=== PATIENT | male | born 1940 | race Caucasian/White ===

== ENCOUNTER → 2018-03-24 14:23 | Outpatient (CLI) | payer MEDICARE, BC, SELFPAY ==
[2018-03-24 15:18] LABS: Anion Gap 5 (5-15); BUN 16 mg/dL (7-18); BUN/Creat Ratio 12.7 RATIO (10-20); Calcium,Total 8.8 mg/dL (8.5-10.1); Chloride 106 mmol/L (98-107); Creatinine, Serum 1.26 mg/dL (0.70-1.30); EST Glomerular Filtration Rate 59 mL/min (>60); Est Glom Filt Rate - Afr Amer 71 mL/min (>60); Glucose 99 mg/dL (74-106); PSA,Total- Diagnostic 0.66 ng/mL (0.0-4.0); Potassium 4.4 mmol/L (3.5-5.1); Sodium Level 140 mmol/L (136-145)
== END ==
PROVIDERS: Family Provider Internal Medicine; PCP Internal Medicine; Visit Provider Urology
DX: N40.0 Benign prostatic hyperplasia without lower urinary tract symptoms (principal)
CPT/HCPCS: 36415; 80048; 84153

== ENCOUNTER → 2018-07-19 07:13 | Outpatient (CLI) | payer MEDICARE, BC, SELFPAY ==
--- NOTE | 2018-07-19 10:39 | NEURO ---
NCS and/or EMG Patient Report Ordering Doctor: Jenifer Starr DATE OF SERVICE: 07/19/18 This is a left upper extremity EMG and nerve conduction study performed on this 77-year-old male with left arm and shoulder pain for 15 years. He says there is pain with passive range of motion of his left shoulder and he has had injections in his left shoulder which has improved the pain. He also has a tremor in both hands worse on the left, he is left-handed. Left upper extremity sensory and motor nerve conduction studies performed demonstrating mild prolongation of the median motor and sensory distal latencies with mild reduction of the median motor amplitude but preservation of conduction velocities. The ulnar motor and sensory and radial sensory responses are normal. Median and ulnar F-wave latencies are normal. Left upper extremity needle electromyography is performed. Muscles evaluated included the first dorsal osseous, abductor pollicis brevis, brachioradialis, biceps, triceps and deltoid muscles. All muscles demonstrated normal insertional activity with absence of pathologic spontaneous activity. Motor unit potential recruitment pattern and amplitude was normal in all muscles tested. Impression: Abnormal electrophysiologic study of the left upper extremity consistent with mild carpal tunnel syndrome at the left wrist. The patient's tremor likely represents benign essential tremor.
== END ==
PROVIDERS: Family Provider Internal Medicine; PCP Internal Medicine; Visit Provider Nurse Practitioner Acute Care
DX: R20.0 Anesthesia of skin (principal); R20.2 Paresthesia of skin
CPT/HCPCS: 95886; 95910

== ENCOUNTER 2018-12-14 13:50 | Outpatient (RCR) | payer MEDICARE, BC, SELFPAY | END 2018-12-14 19:00 | disposition home or self-care (01) | LOC: PT 13:50 | PROVIDERS: Family Provider Internal Medicine; PCP Internal Medicine; Referring Provider Physician Assistant Surgical; Visit Provider Physician Assistant Surgical | DX: M51.36 Other intervertebral disc degeneration, lumbar region (principal); M54.16 Radiculopathy, lumbar region ==

== ENCOUNTER 2019-06-01 15:05 | Inpatient (IN) | payer MEDICARE, BC, SELFPAY ==
[2019-06-01] VITALS (9 sets, daily range): BP systolic 116–140; BP diastolic 69–90; PULSE 90–134; RESP 18–19; TEMP 36.9–37.3; O2SAT 95–97; BMI 34.0; BMI 34.1
--- NOTE | 2019-06-01 15:15 | EKG12_ITS ---
Test Reason : AM EKG Blood Pressure : / mmHG Vent. Rate : 143 BPM Atrial Rate : 133 BPM P-R Int : 000 ms QRS Dur : 076 ms QT Int : 350 ms P-R-T Axes : 000 229 042 degrees QTc Int : 540 ms Poor data quality, interpretation may be adversely affected Sinus tachycardia with 1st degree block Right superior axis deviation Possible Pulmonary disease pattern Possible Right ventricular hypertrophy Inferior infarct , age undetermined Abnormal ECG When compared with ECG of 02-JUN-2019 07:00, MANUAL COMPARISON REQUIRED, DATA IS UNCONFIRMED Confirmed by ROBB GUERRA, QUINTIN ([id number]), writer editor EDWARDO HSIEH ([id number] on 06/08/2019 1:23:52 PM Referred By: Marcelle Thomson Confirmed By:QUINTIN ZAMUDIO MD
--- NOTE | 2019-06-01 15:15 | CT_ITS ---
STUDY: CT BRAIN WITHOUT CONTRAST REASON FOR EXAM: Male, 78 years old. Trauma RADIATION DOSAGE (If Supplied By Facility): CTDIvol = ( 44.99 ) mGy, DLP = ( 812.98 ) mGycm TECHNIQUE: Transaxial CT imaging of the brain was performed without administration of intravenous contrast material. Individualized dose optimization techniques were used for this CT. COMPARISON: No relevant priors. FINDINGS: Normal soft tissue structures. Normal calvarium. Moderate atrophy and periventricular white matter ischemic changes without mass effect or acute bleed.. Normal basal ganglia and thalami. Normal brainstem. Normal cerebellum. There is no intracranial hemorrhage. There are no findings of an acute ischemic infarction. Moderate mucosal thickening within left maxillary bilateral ethmoid and left sphenoid sinuses. CT/Brain/Head without Contrast IMPRESSION: Moderate atrophy and periventricular white matter ischemic changes. No evidence for acute intracranial bleed Electronically Signed: Manuel Lara MD at 16:24 EDT , Service support ,
--- NOTE | 2019-06-01 15:17 | ED.DCSUM_ITS ---
- ER Visit Summary Date of Service: 06/01/19 Chief Complaint: Fall History of Present Illness: The patient is a 78 M who states that 1 or 2 days ago he was in the shower sitting on a shower chair when he fell backwards and struck the back of his head. He states it is a small bathtub and he was unable to get up. An acquaintance checked on him today and found him in the shower. He states that he has been able to drink some fluids. He has not had anything to eat. He does not believe he lost consciousness. He denies any pain other than some soreness on the back of his head. He states that he has made some urine though not much. He denies being on any blood thinners. He was able to assist EMS and getting out of the tub. He also states that just prior to falling in the shower he had 2 falls but he cannot tell me why they fell. He states he has an essential tremor and that is not new. He quit drinking in the 60s. Physical Examination: Afebrile vital signs are stable Gen: Well-nourished well-developed Head: Normocephalic there is a small contusion to the occiput Eyes: Perrl EOMI ENT: TMs clear no rhinorrhea dry mucous membranes Neck: Supple no lymphadenopathy no JVD nontender CVS: Regular rate rhythm no murmurs normal S1-S2 Respiratory: No distress clear to auscultation bilaterally chest nontender Abdomen: Soft nontender nondistended normal bowel sounds no masses Back: Nontender there are pressure changes on the back and buttocks particularly on the right. There is a small abrasion to the upper left back. Extremity: Nontender no edema Skin: Normal color pressure changes located on the posterior legs right arm and back as well as a small area the left inframammary skin. Neuro: alert orientated ?3 CN II-XII intact normal strength sensation patient has a tremor Psych: Normal affect normal mood Test Results: EKG showed a sinus rhythm at a rate of 88. White count is normal. Hemoglobin 17.2. Glucose 107. Normal creatinine. Total bilirubin 2.4 direct bilirubin 0.96. Troponin 0 0.487 CPK at 4033. Lactic acid 1.3. Chest and pelvis x-rays were negative. CT brain was negative. Urine showed 5-10 white blood cells 3+ bacteria positive nitrates and leukocyte esterase. Emergency Department Course and Treatment: The patient received IV fluids and later Rocephin. At one point the patient got up on the side of the bed his heart rate increased to 160 he got back laying down. Eventually his heart rate returned to a sinus tachycardia around 110. Unable to get an EKG twelve-lead done during this time. Looking on the monitor I could not say definitively if it was a sinus tach or for his A. fib. It could just simply be orthostatics from being dehydrated. Our plan is admission and continued hydration. Impression: 1. Acute rhabdomyolysis 2. Elevated troponin 3. Urinary tract infection This note was generated with [employer] dictation software. It may contain incorrect words, spelling, and punctuation that were not noted in review of the chart prior to signing ED Disposition - Plan for ED Patient: Referrals: Lena Jauregui MD [Primary Care Provider] -
--- NOTE | 2019-06-01 15:29 | EKG12_ITS ---
Test Reason : FALL Blood Pressure : / mmHG Vent. Rate : 088 BPM Atrial Rate : 088 BPM P-R Int : 150 ms QRS Dur : 072 ms QT Int : 390 ms P-R-T Axes : 017 241 073 degrees QTc Int : 471 ms Normal sinus rhythm Right superior axis deviation Inferior infarct , age undetermined , cannot be excluded Abnormal ECG Confirmed by ROBB GUERRA, QUINTIN ([id number]), editor in chief newspaper EDWARDO HSIEH ([id number] on 06/06/2019 3:38:04 PM Referred By: Marcelle Thomson Confirmed By:QUINTIN ZAMUDIO MD
[2019-06-01] MEDS: 0.9% Normal Saline 1,000 ML 1000 ML IV (15:31)
--- NOTE | 2019-06-01 15:50 | RAD_ITS ---
STUDY: X-RAY CHEST REASON FOR EXAM: Male, 78 years old. Trauma TECHNIQUE: AP portable COMPARISON: November 18, 2017. FINDINGS: Mild nonspecific elevation of right hemidiaphragm. Lungs are clear.. There is no demonstrated pleural abnormality. Normal size heart. Normal mediastinum and priya. Normal visualized pulmonary arteries. Normal visualized aortic arch and descending thoracic aorta. Dorsal spine demonstrates degenerative change. Normal visualized ribs, clavicles, and shoulders. There is no demonstrated abnormality of the visualized soft tissue structures of the upper abdomen. No significant change since prior exam RAD/Chest 1 View IMPRESSION: No acute cardiopulmonary pathology. Electronically Signed: Manuel Lara MD at 16:11 EDT , Service support ,
--- NOTE | 2019-06-01 15:50 | RAD_ITS ---
STUDY: X-RAY - PELVIS REASON FOR EXAM: Male, 78 years old. Trauma TECHNIQUE: One view of the pelvis was obtained. COMPARISON: None. FINDINGS: There is a non-specific bowel gas pattern. Normal visualized soft tissue structures. Normal bilateral iliac wings, sacroiliac joints and visualized sacrum. Normal visualized bilateral superior and inferior pubic rami. Normal pubic symphysis. Normal ischial tuberosities. Normal visualized right femoral head. Normal right acetabulum. Normal right hip joint. Normal visualized left femoral head. Normal left acetabulum. Normal left hip joint. RAD/Pelvis 1 or 2 Views IMPRESSION: Normal x-ray examination of the pelvis. Electronically Signed: Manuel Lara MD at 16:12 EDT , Service support ,
[2019-06-01 15:52] LABS: Mucous, Urine 0 SEEN /hpf (<or=2+); Red Blood Cells-Urine 0 SEEN /hpf (0-5); Squamous Epithelial Cells - UA 0 SEEN /hpf (0-5)
[2019-06-01 15:59] LABS: Glucose, Dipstick Normal (Normal); Ketone-Dipstick 50 mg/dl (Negative); Leukocyte Esterase-Dipstick 100 /ul (Negative); Nitrite-Dipstick Positive (Negative); Occult Blood-Urine 150 /ul (Negative); Protein-Dipstick 30 mg/dl (Negative); Urine Urobilinogen 4 mg/dl (Normal)
[2019-06-01 16:00] LABS: Absolute Lymphocyte Count 1.03 X10^3/ul (0.83-4.51); Absolute Neutrophil Count 8.3 X10^3/uL (2.0-7.7); Basophil# 0.03 X10^3/uL; Basophil% 0.3 % (0-1); Eosinophil# 0.19 X10^3/uL; Eosinophils% 1.8 % (0-5); Hematocrit 50.6 % (40-54); Hemoglobin 17.2 g/dl (13.0-16.5); Lymphocyte # 1.03 X10^3/ul (4.0); Lymphocyte % 9.8 % (19-41); Mean Corpuscular Volume 85.2 fL (80-94); Monocyte% 8.6 % (0-10); Neutrophil # 8.28 X10^3/uL (2.7-7.7); Neutrophil % 79.1 % (47-70); Platelet Count 123 K/mm3 (150-450); RBC Distribution Width CV 15.2 % (11.6-14.6); RBC Distribution Width SD 47.6 fl (35.1-43.9); Red Blood Count 5.94 M/mm3 (4.6-6.2); White Blood Count 10.5 K/mm3 (4.4-11.0)
[2019-06-01 16:06] LABS: International Normalized Ratio 1.1; POSITIVE COUNT NO; POSITIVE DIFFERENTIAL NO; POSITIVE MORPHOLOGY NO; Prothrombin Time (Protime)PT. 13.9 SECONDS (11.7-14.9)
[2019-06-01 16:07] LABS: Partial Thromboplast Time 23.6 Seconds (24.1-36.2)
[2019-06-01 16:11] LABS: Color, Urine Dk Yello (Yellow); Urine Bilirubin Dipstick 1 mg/dL (Negative); Urine Clarity Clear (Clear)
[2019-06-01 16:22] LABS: Bacteria 3+ /hpf (None Seen); White Blood Cells 5-10 SEEN /hpf (0-5)
[2019-06-01 16:28] LABS: AST(SGOT) 114 U/L (15-37); Alanine Aminotransfer ALT/SGPT 47 U/L (16-61); Albumin, Serum 3.9 g/dL (3.2-5.0); Alkaline Phosphatase 124 U/L (45-117); Anion Gap 6 (5-15); BUN 15 mg/dL (7-18); BUN/Creat Ratio 15.3 RATIO (10-20); Bilirubin, Direct 0.96 mg/dL (0.00-0.30); Calcium,Total 8.8 mg/dL (8.5-10.1); Chloride 103 mmol/L (98-107); Creatinine, Serum 0.98 mg/dL (0.70-1.30); EST Glomerular Filtration Rate 79 mL/min (>60); Est Glom Filt Rate - Afr Amer 95 mL/min (>60); Estimated Creatinine Clearance 66.16 ml/min; Globulin 4.1 g/dL (2.2-4.2); Glucose 107 mg/dL (74-106); Lipase 78 U/L (73-393); Potassium 3.9 mmol/L (3.5-5.1); Sodium Level 134 mmol/L (136-145)
--- NOTE | 2019-06-01 16:52 | NURSING ---
LACTIC NEEDS REDRAWN
[2019-06-01 16:55] LABS: CPK Total, Creatine Kinase 4033 U/L (39-308)
[2019-06-01] MEDS: 0.9% Normal Saline 1,000 ML 150 ML IV ×2 (17:01→22:27)
[2019-06-01 18:01] LABS: Lactic Acid 1.3 mmol/L (0.4-2.0)
--- NOTE | 2019-06-01 18:14 | NURSING ---
DR EL LEWIS
--- NOTE | 2019-06-01 18:15 | HP.PCM_ITS ---
History of Present Illness Date of Admission: 06/01/19 Chief Complaint: fall, The patient is a 78 year old M with a past medical history as listed. He was admitted through the ED on 06/01/2019 with a complaint of mechanical fall. Patient states he has had problems with his equilibrium and has had numerous falls recently. He was initially sitting on a shower chair for 1 day ago when he fell backwards. He states he hit the back of his head and was unable to get out of the bath. He did not lose any consciousness. He was found by an acquaintance who checked on him today and found him in the shower. He denies any fever chills no palpitations or dizziness and states that the only what they had been able to drink was the bottle of water. EMS was called and he was brought into the ED where vitals were stable but EKG showed sinus rhythm with a heart rate of 88. Labs were significant for hemoglobin of 17.2. Creatinine was within normal limits but total bilirubin was elevated at 2.4 with direct bilirubin of 0.96. He also had AST of 114 and ALT of 47 as well as elevated ALP of 124 and his total CPK was 4033. Initial troponin was 0.487. He has been admitted to be monitored for mechanical fall and rhabdomyolysis as well as elevated troponins. [] Past Medical History Past Medical History (Chronic Problems): Chronic Problems Benign essential hypertension (Chronic) BPH (benign prostatic hyperplasia) (Chronic) Crohns disease (Chronic) Osteoarthritis (Chronic) History of total knee arthroplasty (Chronic) Depression (Chronic) Dementia (Chronic) Allergies atorvastatin Adverse Reaction (Verified 10/28/16 19:54) Unknown Penicillins Adverse Reaction (Verified 10/28/16 19:54) Unknown Home Medications: Ambulatory Orders Medication Instructions Recorded Beta-Carotene [Beta Carotene] 1 tab PO DAILY 08/30/15 Clonazepam [Klonopin] 1 mg PO BID 08/30/15 Co Q10 200 [Co Q-10] 100 mg PO DAILY 08/30/15 Cyanocobalamin (Vitamin B-12) 1,000 mcg PO DAILY 08/30/15 [Vitamin B-12] Finasteride [Proscar] 5 mg PO DAILY 08/30/15 Folic Acid 1 mg PO BIDCM 08/30/15 Lansoprazole [Prevacid] 30 mg PO DAILY 08/30/15 Multivit-Min/FA/Lycopen/Lutein 1 each PO DAILY 08/30/15 [Centrum Silver Tablet] Propranolol HCl [Inderal (Beta 40 mg PO 4X/DAY 08/30/15 Usha)] Sertraline HCl [Zoloft] 200 mg PO DAILY 08/30/15 Sucralfate [Carafate] 1 gm PO BID 08/30/15 Vit A/Vit C/Vit E/Zinc/Copper 2 each PO DAILY 08/30/15 [Icaps Areds Formula Dr Tablet] busPIRone [Buspar] 10 mg PO BID 08/30/15 Donepezil HCl 10 mg PO QHS 10/28/16 Mesalamine [Lialda] 1 tab PO BID 10/28/16 Metoprolol Tartrate [Lopressor 50 mg PO BID 10/28/16 (beta usha)] Montelukast [Singulair] 10 mg PO QHS 10/28/16 Methotrexate 15 mg PO QWEEK 11/15/17 Tamsulosin HCl [Flomax] 0.4 mg PO QHS 11/15/17 Folic Acid 1 mg PO DAILY #30 tab 11/19/17 Prednisone 10 mg PO UD #30 tab 11/19/17 Primidone [Mysoline] 25 mg PO QHS #30 tab 11/19/17 Rifampin 300 mg PO BID #18 cap 11/19/17 Smz/Tmp Ds [Bactrim Ds] 1 tab PO BID #18 tab 11/19/17 Surgical History: cholecystectomy, herniorrhaphy, tonsillectomy Psychiatric History: No pertinent psych hx Lives: Alone Smoking Status: Former smoker - quit in the 1960s Alcohol: Occasional Drugs: None - *Family History Maternal History Items: No pertinent history Paternal History Items: No pertinent history Offspring History Items: - - says both daughters have a cancer gene, /BRCA gene; older daughter needed double mastectomy Review of Systems Constitutional: Reports: Malaise, Fatigue. Denies: Chills, Fever, Weakness, Weight Change Eyes: Denies: Blurred vision HEENT: Denies: Head Aches, Sinus Congestion, Sinus Drainage Cardiovascular: Denies: Chest Pain, Chest Pressure, Chest Tightness, Edema, Light Headedness, Orthopnea, Palpitations, Paroxysmal Noc. Dyspnea Respiratory: Denies: Cough, Shortness of Breath, Shortness of breath at rest, Shortness of breath upon exertion, Sputum production, Wheezing Gastrointestinal: Denies: Abdominal Pain, Nausea, Vomiting Genitourinary: Denies: Dysuria Musculoskeletal: Denies: Joint Pain, Joint Tenderness Skin: Denies: Rash, Wounds Neurological: Denies: Numbness, Tingling, Focal weakness Psychiatric: Denies: Anxiety, Depression, Homicidal Ideations, Suicidal Ideations Hematologic/ Lymphatic: Denies: Easy Bruising, Easy Bleeding VTE Information - Inpt Only VTE Present on Admission: No VTE Pharm Prophylaxis ordered?: Yes - Physical Exam General: Alert, Oriented x3, Cooperative, No apparent distress HEENT: Atraumatic, PERRLA, EOMI, Normocephalic Oral: Moist Mucosa Neck: Supple, No JVD, Negative Carotid Bruits Lungs: Clear to auscultation, Normal air movement Cardiovascular: Regular rate, Regular Rhythm, Normal S1, Normal S2, No murmurs Abdomen: Bowel Sounds Present, Soft, Non Tender, Non-Distended, No Hepato- splenomegaly Extremities: No clubbing, No cyanosis, No edema, Capillary Refill Less than 3 Seconds Skin: No rashes, No breakdown Musculoskeletal: No Tenderness to Palpation of Joints or Extremities Lymphatic: No Cervical, Supraclavicular, or Inguinal Adenopathy Neurological: Cranial nerves II-XII grossly intact, Neuro grossly intact, Motor Exam 5/5 strength throughout Psych/Mental Status: Normal Affect, Appropriate, Alert and oriented to time, place, person, mood and affect Vital Signs Temp Pulse Resp BP Pulse Ox 99.1 F 90 18 116/90 H 96 06/01/19 15:06 06/01/19 15:06 06/01/19 15:06 06/01/19 15:06 06/01/19 15:06 Oxygen Delivery Method Room Air Weight: 244 lb 0.827 oz Body Mass Index (BMI) 34.0 Laboratory Tests Past 24 Hrs 06/01/19 06/01/19 06/01/19 15:40 15:40 15:40 WBC 10.5 RBC 5.94 Hgb 17.2 H Hct 50.6 MCV 85.2 MCH 29.0 MCHC 34.0 RDW 15.2 H RDW Differential 47.6 H Plt Count 123 L MPV 11.0 Immature Gran % (Auto) 0.400 Neut % (Auto) 79.1 H Lymph % (Auto) 9.8 L Dawes % (Auto) 8.6 Eos % (Auto) 1.8 Baso % (Auto) 0.3 Absolute Neuts (auto) 8.3 H Absolute Lymphs (auto) 1.03 Total Counted Not Reportable PT 13.9 INR 1.1 APTT 23.6 L Sodium 134 L Potassium 3.9 Chloride 103 Carbon Dioxide 25.0 Anion Gap 6 BUN 15 Creatinine 0.98 Estim Creat Clear Calc 66.16 Est GFR (MDRD) Af Amer 95 Est GFR (MDRD) Non-Af 79 BUN/Creatinine Ratio 15.3 Glucose 107 H Lactic Acid Calcium 8.8 Total Bilirubin 2.40 H Direct Bilirubin 0.96 H AST 114 H ALT 47 Alkaline Phosphatase 124 H Total Creatine Kinase Troponin I 0.487 H Total Protein 8.0 Albumin 3.9 Globulin 4.1 Lipase 78 Urine Color Urine Clarity Urine pH Ur Specific Eaton Urine Protein Urine Glucose (UA) Urine Ketones Urine Occult Blood Urine Nitrite Urine Bilirubin Urine Urobilinogen Ur Leukocyte Esterase Urine RBC Urine WBC Ur Squamous Epith Cells Urine Bacteria Urine Mucus 06/01/19 06/01/19 06/01/19 15:40 15:40 15:45 WBC RBC Hgb Hct MCV MCH MCHC RDW RDW Differential Plt Count MPV Immature Gran % (Auto) Neut % (Auto) Lymph % (Auto) Dawes % (Auto) Eos % (Auto) Baso % (Auto) Absolute Neuts (auto) Absolute Lymphs (auto) Total Counted PT INR APTT Sodium Potassium Chloride Carbon Dioxide Anion Gap BUN Creatinine Estim Creat Clear Calc Est GFR (MDRD) Af Amer Est GFR (MDRD) Non-Af BUN/Creatinine Ratio Glucose Lactic Acid Cancelled Calcium Total Bilirubin Direct Bilirubin AST ALT Alkaline Phosphatase Total Creatine Kinase 4033 H Troponin I Total Protein Albumin Globulin Lipase Urine Color Dk Yello Urine Clarity Clear Urine pH 5.0 Ur Specific Eaton 1.020 Urine Protein 30 H Urine Glucose (UA) Normal Urine Ketones 50 H Urine Occult Blood 150 H Urine Nitrite Positive H Urine Bilirubin 1 H Urine Urobilinogen 4 H Ur Leukocyte Esterase 100 H Urine RBC 0 SEEN Urine WBC 5-10 SEEN Ur Squamous Epith Cells 0 SEEN Urine Bacteria 3+ Urine Mucus 0 SEEN 06/01/19 17:01 WBC RBC Hgb Hct MCV MCH MCHC RDW RDW Differential Plt Count MPV Immature Gran % (Auto) Neut % (Auto) Lymph % (Auto) Dawes % (Auto) Eos % (Auto) Baso % (Auto) Absolute Neuts (auto) Absolute Lymphs (auto) Total Counted PT INR APTT Sodium Potassium Chloride Carbon Dioxide Anion Gap BUN Creatinine Estim Creat Clear Calc Est GFR (MDRD) Af Amer Est GFR (MDRD) Non-Af BUN/Creatinine Ratio Glucose Lactic Acid 1.3 Calcium Total Bilirubin Direct Bilirubin AST ALT Alkaline Phosphatase Total Creatine Kinase Troponin I Total Protein Albumin Globulin Lipase Urine Color Urine Clarity Urine pH Ur Specific Eaton Urine Protein Urine Glucose (UA) Urine Ketones Urine Occult Blood Urine Nitrite Urine Bilirubin Urine Urobilinogen Ur Leukocyte Esterase Urine RBC Urine WBC Ur Squamous Epith Cells Urine Bacteria Urine Mucus Diagnostic Data Brain CT 06/01/19 15:15 IMPRESSION: Moderate atrophy and periventricular white matter ischemic changes. No evidence for acute intracranial bleed Electronically Signed: Manuel Lara MD at 16:24 EDT , Service support , Chest X-Ray 06/01/19 15:50 IMPRESSION: No acute cardiopulmonary pathology. Electronically Signed: Manuel Lara MD at 16:11 EDT , Service support , Pelvis X-Ray 06/01/19 15:50 IMPRESSION: Normal x-ray examination of the pelvis. Electronically Signed: Manuel Lara MD at 16:12 EDT , Service support , Assessment/Plan All Active Problems Acute bronchitis (Acute) Community acquired MRSA infection (Acute) Essential tremor (Acute) 78-year-old male admitted with a complaint of mechanical fall and found to have elevated CPK and troponins. 1. Rhabdomyolysis due to mechanical fall * initial CPK is 4033 * Cr WNL * admit to PCU with telemetry * hdyrate with IVF NS ~ 150cc/hr * monitor input and output * trend CPK * 2. Elevated troponins * initial troponin is 0.487; denies any chest pain * could be due to effect of rhabdomyolysis; decreased clearance from kidney as cause less likely due to normal Kidney function * will cycle troponins; consult cardiology o/a of elevated troponins and SVT * 2D echo * 3. SVT: * patient has been going in and out of SVT whilst in ED; * HR goes as high as 160s but spontaneously comes down to 110s. * WIll check Mg; K is WNL. * Cardiology consulted. 2D echo ordered. * IV lopressor prn for HR >120 * 4. Elevated bilirubin: * Total bilirubin is 2.4 with direct bilirubin of 0.96 as well as AST of 114. * ALP is 124. * This is likely due to the effect of rhabdomyolysis. Will trend liver profile. * 5. Debility due to mechanical fall: Consult PT OT. Fall precautions. case management for discharge planning as he lives alone and may benefit from placement 6. Hypertension: On metoprolol. 7. BPH: On finasteride. 8. History of essential tremor: On primidone 9. Depression and anxiety: On BuSpar 10. Dementia:on donepezil 11. History of Crohn's disease: On prednisone and methotrexate. 12. History of benzodiazepine dependence: Stable DVT prophylaxis: Lovenox GI prophylaxis: Lansoprazole CODE STATUS: Full code * Patient counseled extensively about different types of CODE STATUS including full code, DNR CCA and DNR CCA. Patient elects to be full code. Total [id number] time 16 minutes. Code Visit Inpatient E&M: 60064 Init Hosp L3 Procedures: 12665 Advncd Care Plan 30 Min
--- NOTE | 2019-06-01 18:17 | NURSING ---
PCU ELEVATED TROP, RHABDOMYOLYSIS KORAM
[2019-06-01] MEDS: Ceftriaxone 1 GM/50 ML BAG IV (18:42)
--- NOTE | 2019-06-01 18:44 | EKG12_ITS ---
Test Reason : AM EKG Blood Pressure : / mmHG Vent. Rate : 141 BPM Atrial Rate : 141 BPM P-R Int : 216 ms QRS Dur : 076 ms QT Int : 366 ms P-R-T Axes : 000 232 045 degrees QTc Int : 560 ms Sinus tachycardia with 1st degree A-V block Right superior axis deviation Possible Pulmonary disease pattern Inferior infarct , age undetermined Abnormal ECG Confirmed by ROBB GUERRA, QUINTIN ([id number]), design editor EDWARDO HSIEH ([id number]) on 06/08/2019 1:22:37 PM Referred By: Marcelle Thomson Confirmed By:QUINTIN ZAMUDIO MD
--- NOTE | 2019-06-01 18:44 | EKG12_ITS ---
Test Reason : AM EKG Blood Pressure : / mmHG Vent. Rate : 095 BPM Atrial Rate : 095 BPM P-R Int : 166 ms QRS Dur : 078 ms QT Int : 384 ms P-R-T Axes : 040 244 074 degrees QTc Int : 482 ms Sinus rhythm with Fusion complexes and Premature atrial complexes with Aberrant conduction Right superior axis deviation Possible Pulmonary disease pattern Inferior infarct , age undetermined Abnormal ECG Confirmed by ROBB GUERRA, QUINTIN ([id number]), school photograph editor EDWARDO HSIEH ([id number]) on 06/08/2019 1:24:12 PM Referred By: Marcelle Thomson Confirmed By:QUINTIN ZAMUDIO MD
[2019-06-01] MEDS: Metoprolol Tartrate 5 MG/5 ML Vial IV (18:55)
[2019-06-01 20:36] LABS: Magnesium 1.9 mg/dL (1.6-2.6)
--- NOTE | 2019-06-01 20:58 | CON.PCM_ITS ---
Problem List (1) Abnormal cardiac enzyme level Status: Acute (2) SVT (supraventricular tachycardia) Status: Acute (3) Rhabdomyolysis Status: Acute (4) Benign essential hypertension Status: Chronic (5) Essential tremor Status: Acute (6) Dementia Status: Chronic Qualifiers: Dementia type: unspecified type Dementia behavioral disturbance: without behavioral disturbance Qualified Code(s): F03.90 - Unspecified dementia without behavioral disturbance Reason for Consult Date of Consultation: 06/01/19 History of Present Illness: The patient is a 78 year old white male who claims to have no past cardiovascular history who was referred for concerns of abnormal troponin I levels in the setting of a markedly elevated CPK level thought secondary to rhabdomyolysis as well as concerns of an underlying PSVT superimposed upon hypertension, essential tremor, and dementia. The patient was reportedly in his bathtub at home for greater than 24 hours as he could not exit his bathtub under his own power. He was found by a person who checks on him. He was subsequently brought to the hospital for further evaluation and care. He was placed in the PCU. He was given the diagnosis of rhabdomyolysis secondary to markedly elevated CPK levels. His troponin I level was noted to be in the indeterminate range. His cardiac rhythm was noted to be sinus rhythm and was also noted to have episodes appearing compatible with a PSVT. He was referred for further cardiovascular evaluation. At the present time he denies any ongoing chest discomfort or acute respiratory related issues. There has been no definitive palpitations or rapid rates. He states he does not believe he has had any episodes of loss of consciousness. He does admit to a history of multiple falling episodes. He also admits that his brain does not function like it used to . He does not appear to recall all the events at home that led him to be brought to the hospital. [] Past Medical History Allergies/Adverse Reactions: Allergies atorvastatin Adverse Reaction (Verified 10/28/16 19:54) Unknown Penicillins Adverse Reaction (Verified 10/28/16 19:54) Unknown Home Medications: Ambulatory Orders Medication Instructions Recorded Beta-Carotene [Beta Carotene] 1 tab PO DAILY 08/30/15 Clonazepam [Klonopin] 1 mg PO BID 08/30/15 Co Q10 200 [Co Q-10] 100 mg PO DAILY 08/30/15 Cyanocobalamin (Vitamin B-12) 1,000 mcg PO DAILY 08/30/15 [Vitamin B-12] Finasteride [Proscar] 5 mg PO DAILY 08/30/15 Folic Acid 1 mg PO BIDCM 08/30/15 Lansoprazole [Prevacid] 30 mg PO DAILY 08/30/15 Multivit-Min/FA/Lycopen/Lutein 1 each PO DAILY 08/30/15 [Centrum Silver Tablet] Propranolol HCl [Inderal (Beta 40 mg PO 4X/DAY 08/30/15 Usha)] Sertraline HCl [Zoloft] 200 mg PO DAILY 08/30/15 Sucralfate [Carafate] 1 gm PO BID 08/30/15 Vit A/Vit C/Vit E/Zinc/Copper 2 each PO DAILY 08/30/15 [Icaps Areds Formula Dr Tablet] busPIRone [Buspar] 10 mg PO BID 08/30/15 Donepezil HCl 10 mg PO QHS 10/28/16 Mesalamine [Lialda] 1 tab PO BID 10/28/16 Metoprolol Tartrate [Lopressor 50 mg PO BID 10/28/16 (beta usha)] Montelukast [Singulair] 10 mg PO QHS 10/28/16 Methotrexate 15 mg PO QWEEK 11/15/17 Tamsulosin HCl [Flomax] 0.4 mg PO QHS 11/15/17 Folic Acid 1 mg PO DAILY #30 tab 11/19/17 Prednisone 10 mg PO UD #30 tab 11/19/17 Primidone [Mysoline] 25 mg PO QHS #30 tab 11/19/17 Rifampin 300 mg PO BID #18 cap 11/19/17 Smz/Tmp Ds [Bactrim Ds] 1 tab PO BID #18 tab 11/19/17 Past Medical History (Chronic Problems): Chronic Problems Benign essential hypertension (Chronic) BPH (benign prostatic hyperplasia) (Chronic) Crohns disease (Chronic) Osteoarthritis (Chronic) History of total knee arthroplasty (Chronic) Depression (Chronic) Dementia (Chronic) Surgical History: cholecystectomy, herniorrhaphy, tonsillectomy Psychiatric History: No pertinent psych hx - *Family History Maternal History Items: No pertinent history Paternal History Items: No pertinent history Offspring History Items: - - says both daughters have a cancer gene, /BRCA gene; older daughter needed double mastectomy Lives: Alone Smoking Status: Former smoker Tobacco Use: Cigarettes Alcohol: Occasional Drugs: None Review of Systems - Review of Systems General: Denies: Fever, Night Sweats, Fatigue Cardiovascular: Denies: Chest Discomfort, Shortness of Breath, Orthopnea, PND, Peripheral Edema, Palpitations, Lightheadedness, Dizziness, Near Syncope, Syncope Respiratory: Denies: Cough, Sputum Production, Hemoptysis Gastrointestinal: Denies: Hematemesis, Hematochezia, Melena Genitourinary: Denies: Dysuria, Hematuria Skin: Reports: Rash Subjectve: This is a 78-year-old white male who appears to be resting comfortably at the moment in no acute distress. Objective: Vital Signs Temp Pulse Resp BP Pulse Ox 98.5 F 98 18 124/70 H 97 06/01/19 19:17 06/01/19 19:17 06/01/19 19:17 06/01/19 19:17 06/01/19 19:17 Oxygen Flow Rate (L/min) 2 Oxygen Delivery Method Nasal Cannula Weight: 244 lb 4.355 oz Body Mass Index (BMI) 34.0 General: Awake, Cooperative, No Acute Distress, Obese HEENT: Atraumatic, Normocephalic, PERRL, EOMI, Sclera Non Icteric Oral: Moist Mucosa Neck: Supple, Good ROM, No JVD Lungs: Clear to auscultation Cardiovascular: Regular Rhythm, Normal S1, Normal S2 Vascular: No Carotid Bruits Abdomen: Bowel Sounds Present, Soft, Non Tender Extremities: No Cyanosis, No Clubbing, No edema Neurological: No Focal Motor or Sensory Deficit Psych/Mental Status: Appropriate 06/01/19 15:40: WBC 10.5, RBC 5.94, Hgb 17.2 H, Hct 50.6, MCV 85.2, MCH 29.0, MCHC 34.0, RDW 15.2 H, RDW Differential 47.6 H, Plt Count 123 L, MPV 11.0, Immature Gran % (Auto) 0.400, Neut % (Auto) 79.1 H, Lymph % (Auto) 9.8 L, [place] % (Auto) 8.6, Eos % (Auto) 1.8, Baso % (Auto) 0.3, Absolute Neuts (auto) 8.3 H, Total Counted Not Reportable 06/01/19 15:40: PT 13.9, INR 1.1, APTT 23.6 L 06/01/19 15:40: Sodium 134 L, Potassium 3.9, Chloride 103, Carbon Dioxide 25.0, Anion Gap 6, BUN 15, Creatinine 0.98, Est GFR (MDRD) Af Amer 95, Est GFR (MDRD) Non-Af 79, BUN/Creatinine Ratio 15.3, Glucose 107 H, Calcium 8.8, Total Bilirubin 2.40 H, Direct Bilirubin 0.96 H, Troponin I 0.487 H 06/01/19 15:40: Lactic Acid Cancelled 06/01/19 15:45: Urine Color Dk Yello, Urine Clarity Clear, Urine pH 5.0, Ur Specific [place] 1.020, Urine Protein 30 H, Urine Glucose (UA) Normal, Urine Ketones 50 H, Urine Occult Blood 150 H, Urine Nitrite Positive H, Urine Bilirubin 1 H, Urine Urobilinogen 4 H, Ur Leukocyte Esterase 100 H, Urine RBC 0 SEEN, Urine WBC 5-10 SEEN 06/01/19 17:01: Lactic Acid 1.3 06/01/19 20:12: Magnesium 1.9, Troponin I 0.478 H Rhythm: Sinus rhythm EKG: Sinus rhythm; poor R wave progression; inferior NM of indeterminate age cannot be excluded; repeat ECG demonstrating sinus tachycardia with poor R wave progression with inferior NM of indeterminate age cannot be excluded and possibly lateral NM of indeterminate age cannot be excluded; repeat ECG demonstrated findings compatible with a supraventricular tachycardia with occasional premature ectopic complexes with an inferior NM of indeterminate age cannot be excluded and anterolateral NM of indeterminate age cannot be excluded CXR: Preliminary evaluation: No acute cardiopulmonary disease process: Please see official report Assessment/Plan 1. Abnormal cardiac enzymes/troponin I level The patient has had an indeterminate troponin I level. This is in the setting of a markedly elevated CPK thought secondary to rhabdomyolysis. His repeat troponin I level has decreased. His electric cardiogram is demonstrated no acute elective cardiographic changes. At the present time he will continue to be monitored. His CPK level and troponin I level will be reassessed. His ECG will be followed. He will be asked to have a transthoracic echocardiogram to further assess his left ventricular wall motion and systolic function. Depending upon his clinical course he may eventually need further noninvasive or invasive cardiovascular studies. However be reasonable to treat his underlying rhabdomyolysis initially and monitor his CPK level as well as his renal function. With respect to treatment he is receiving medical management. This includes IV fluids at this time. He can also receive additional medical therapy with agents such as aspirin unless otherwise contraindicated, nitrates as needed, beta- blockers, etc. 2. Paroxysmal supraventricular tachycardia The patient has findings appearing compatible with underlying PSVT. He is unaware of any history of cardiovascular disease. It is unclear as to whether this is an issue the patient has that has been previously undiagnosed or related to his underlying acute events. At the moment he will continue to be monitored as noted above. At would be reasonable to initiate beta-usha therapy, which, the patient reportedly had been on in the past for his essential tremor. 3. Rhabdomyolysis The patient was in his bathtub for at least 24 hours or greater. His CPK level was markedly elevated compatible with rhabdomyolysis. Again this may be a contributing factor to his troponin I levels. At the moment he is being monitored. He is receiving IV fluids. His enzyme levels will be followed as well as his renal function. 4. Hypertension He can continue medical management as deemed appropriate. 5. Essential tremor He apparently has been on beta-usha therapy in the past. He believes he may have been on propranolol therapy in the past. However he is unsure whether the beta-blockers made a difference with his underlying tremor. 6. Dementia The patient appears to be unclear as to a variety of issues that occurred during his recent event that led to his hospitalization. He does admit that he has issues with my brain. He will need continue evaluation and care by internal medicine. However his dementia may become an issue if the patient needs additional noninvasive or invasive studies with respect to being able to understand and/or mandi consent for such studies as well as cooperating with such studies. This note was generated with [employer] software. It may contain incorrect words, spelling, and punctuation that were not noted in checking the note before signing.
[2019-06-01] MEDS: Metoprolol Tartrate 25 MG Tablet PO (22:28)
[2019-06-01] MEDS: Ciprofloxacin 400 MG/200 ML BAG 200 MG IV (22:28)
[2019-06-01] MEDS: 0.9% NaCl Peripheral Flush Adult/Peds IV (22:37)
[2019-06-02] VITALS (18 sets, daily range): BP systolic 114–135; BP diastolic 59–73; PULSE 74–155; RESP 16–23; TEMP 36.5–37.1; O2SAT 92–97
[2019-06-02 02:07] LABS: Absolute Lymphocyte Count 1.31 X10^3/ul (0.83-4.51); Absolute Neutrophil Count 6.6 X10^3/uL (2.0-7.7); Basophil# 0.02 X10^3/uL; Basophil% 0.2 % (0-1); Eosinophil# 0.15 X10^3/uL; Eosinophils% 1.7 % (0-5); Hematocrit 40.7 % (40-54); Hemoglobin 13.9 g/dl (13.0-16.5); Lymphocyte # 1.31 X10^3/ul (4.0); Lymphocyte % 14.9 % (19-41); Mean Corp Hgb Conc 34.2 g/gl (32-36); Mean Corpuscular Hgb 29.4 pg (27.0-32.0); Mean Platelet Vol. 10.9 fl (6.2-12.0); Monocyte# 0.74 X10^3/uL; Monocyte% 8.4 % (0-10); Neutrophil # 6.58 X10^3/uL (2.7-7.7); Neutrophil % 74.6 % (47-70); POSITIVE COUNT NO; POSITIVE DIFFERENTIAL NO; POSITIVE MORPHOLOGY NO; Platelet Count 121 K/mm3 (150-450); RBC Distribution Width CV 15.3 % (11.6-14.6); RBC Distribution Width SD 47.2 fl (35.1-43.9); Red Blood Count 4.73 M/mm3 (4.6-6.2); White Blood Count 8.8 K/mm3 (4.4-11.0)
[2019-06-02 02:23] LABS: ALB/GLOB Ratio 0.9 RATIO (0.9-2.4); AST(SGOT) 86 U/L (15-37); Alanine Aminotransfer ALT/SGPT 41 U/L (16-61); Albumin, Serum 2.9 g/dL (3.2-5.0); Alkaline Phosphatase 91 U/L (45-117); Anion Gap 5 (5-15); BUN 15 mg/dL (7-18); BUN/Creat Ratio 16.6 RATIO (10-20); Calcium,Total 7.5 mg/dL (8.5-10.1); Chloride 106 mmol/L (98-107); EST Glomerular Filtration Rate 87 mL/min (>60); Est Glom Filt Rate - Afr Amer 105 mL/min (>60); Estimated Creatinine Clearance 72.05 ml/min; Globulin 3.4 g/dL (2.2-4.2); Glucose 115 mg/dL (74-106); Lipase 97 U/L (73-393); Potassium 3.5 mmol/L (3.5-5.1); Protein, Total 6.3 g/dL (6.4-8.2); Sodium Level 135 mmol/L (136-145)
[2019-06-02 03:09] LABS: CPK Total, Creatine Kinase 2071 U/L (39-308)
[2019-06-02] MEDS: 0.9% Normal Saline 1,000 ML 150 ML IV ×2 (05:30→13:26)
--- NOTE | 2019-06-02 05:55 | EKG12_ITS ---
Test Reason : AM EKG Blood Pressure : / mmHG Vent. Rate : 092 BPM Atrial Rate : 092 BPM P-R Int : 160 ms QRS Dur : 074 ms QT Int : 378 ms P-R-T Axes : 029 245 071 degrees QTc Int : 467 ms Sinus rhythm with Premature supraventricular complexes Right superior axis deviation Inferior infarct , age undetermined , cannot be excluded Abnormal ECG Confirmed by ROBB GUERRA, QUINTIN ([id number]), online editor ASHWIN SAMAYOA ([id number]) on 06/05/2019 1:42:49 PM Referred By: Marcelle Thomson Confirmed By:QUINTIN ZAMUDIO MD
--- NOTE | 2019-06-02 05:55 | ECHOD_ITS ---
Reason For Study: Arrhythmia Procedure This was a 2D Doppler, Color Flow transthoracic echocardiogram. The study was technically difficult. Exam performed portable in patient room. Left Ventricle Normal LV size. Left ventricular systolic function is normal. The estimated ejection fraction is 65 %. Unable to assess diastolic dysfunction. No regional wall motion abnormalities noted. Right Ventricle Normal RV size. Normal systolic function. Atria Normal left atrium. Normal right atrium. Normal atrial septum. Mitral Valve There is no mitral annular calcification. Normal mitral valve. Trivial mitral valve insufficiency. Tricuspid Valve Normal tricuspid valve. Trivial tricuspid valve insufficiency. Right ventricular systolic pressure estimated to be 31 mmHg. Aortic Valve The aortic valve is not well visualized. Pulmonic Valve The pulmonic valve is not well visualized. Great Vessels The aortic root is not well visualized. Pericardium/Pleural No pericardial effusion. Doppler Measurements & Calculations Ao V2 max: 92.8 cm/sec LV V1 max: 99.6 cm/sec PA V2 max: 95.0 cm/sec Ao max P.5 mmHg LV V1 max P.0 mmHg TR max tammy: 265.3 cm/sec TR max P.2 mmHg Interpretation Summary The study was technically difficult. Left ventricular systolic function is normal. The estimated ejection fraction is 65 %. Trivial mitral valve insufficiency. Trivial tricuspid valve insufficiency. Right ventricular systolic pressure estimated to be 31 mmHg. Unable to assess diastolic dysfunction. Ordering Physician: Marcelle Thomson Referring Physician: Lena Jauregui M.D. Performed By: Yifan Singh RCS
--- NOTE | 2019-06-02 06:50 | EKG12_ITS ---
Test Reason : ARRHYTHMIA Blood Pressure : / mmHG Vent. Rate : 108 BPM Atrial Rate : 108 BPM P-R Int : 148 ms QRS Dur : 072 ms QT Int : 338 ms P-R-T Axes : 004 225 058 degrees QTc Int : 452 ms Sinus tachycardia Possible Lateral infarct , age undetermined Inferior infarct , age undetermined Abnormal ECG Confirmed by ROBB GUERRA, QUINTIN ([id number]), fashion editor ASHWIN SAMAYOA ([id number]) on 06/05/2019 1:18:08 PM Referred By: Marcelle Thomson Confirmed By:QUINTIN ZAMUDIO MD
[2019-06-02] MEDS: Metoprolol Tartrate 25 MG Tablet PO (07:03)
[2019-06-02] MEDS: Ciprofloxacin 400 MG/200 ML BAG 200 MG IV ×2 (09:31→21:44)
[2019-06-02] MEDS: Enoxaparin 40 MG/0.4 ML Syringe SC (09:32)
[2019-06-02] MEDS: Aspirin E.C. 81 MG Tablet PO (09:32)
--- NOTE | 2019-06-02 10:02 | CASEMGMT ---
RN CM Assessment Introduced role of RN CM to patient.? Patient is alert, oriented and able?to participate in RN CM Assessment. ?Care providers, pharmacy, and demographics verified. Presentation: Mechanical Fall, Numerous Falls recently. Elevated Troponin, Rhabdomyolysis. Admit Dx: Elevated Troponin, Rhabdomyolysis Re-Admit: No Barriers/Issues: Patient lives alone, states recent falls d/t equilibrium. Denies wanting HHC if recommended. PCP: Lena Jauregui Specialists: Derm, POD, Ophth- degenerative eye, Ortho Surg- Knee and degenerative Disc Dz. Preferred [facility]acy[facility] Insurance: [employer], [employer] Rx Benefit:?Yes ?LNOK: Friend Anastacia Kennedy LW/HPOA: Yes both, do not see on file at [facility]- Friend Anastacia Castlei Living Arrangements:?Lives alone in a SS Home, 3 steps to enter home. ADL?s: Independent with ambulation and ADL's, states he should be using his cane more. Transportation: Drives self, Friend upon DC DME: Cane, walker HHC: Believes in the Past SNF: None Goal: Home, does not think will have any needs. Denies questions/concerns. Aware CM remains available for any emerging needs. Pending Inpt PT/OT eval, patient declines HHC if recommended. DC PLAN: Home, No anticipated needs identified at this time as patient would refuse HHC. NALDO Blue
--- NOTE | 2019-06-02 10:50 | CASEMGMT ---
SW spoke w/pt, he states has LW/POA at home but knows he does not have a copy here in the chart. Upon further discussion pt explains that the forms have not been notarized or witnessed. SW offered to assist pt now in completing the forms, pt declined. SW offered to give pt number to SW department so he can set up an appt after his hospitalization, pt also not interested in doing this. SW let pt know that most [employer] and even [employer] stores have notaries if he just wants to use the forms he has and get them notarized. Pt states he will likely just do this. CAROLYN Barcenas
--- NOTE | 2019-06-02 13:56 | PN_ITS ---
Patient Problems: Active and Suspected Problems SVT (supraventricular tachycardia) (Acute) Abnormal cardiac enzyme level (Acute) Rhabdomyolysis (Acute) Subjective: Patient seen and examined. Reports nasal congestion. Denies other current complaints. - Physical Exam General: Alert, Oriented x3, Cooperative HEENT: Atraumatic, PERRLA, EOMI, Normocephalic Neck: Supple, No JVD, Negative Carotid Bruits Lungs: Clear to auscultation, Diminished Cardiovascular: Regular rate, Regular Rhythm, Normal S1, Normal S2, No murmurs Abdomen: Bowel Sounds Present, Soft, Non Tender, Non-Distended Extremities: No clubbing, No cyanosis, No edema, Capillary Refill Less than 3 Seconds Skin: No rashes, No breakdown Musculoskeletal: No Tenderness to Palpation of Joints or Extremities Neurological: Cranial nerves II-XII grossly intact, Neuro grossly intact Psych/Mental Status: Normal Affect, Appropriate Vital Signs Temp Pulse Resp BP Pulse Ox 98.7 F 74 16 133/59 H 94 06/02/19 09:19 06/02/19 09:19 06/02/19 09:19 06/02/19 09:19 06/02/19 09:19 Oxygen Flow Rate (L/min) 1 Oxygen Delivery Method Nasal Cannula Weight: 244 lb 4.355 oz Body Mass Index (BMI) 34.0 Intake and Output for Last 24 Hours 05/31/19 06/01/19 06/02/19 23:59 23:59 23:59 Intake Total 540 / 540 2595 / 2595 Output Total 100 / 100 200 / 200 Balance 440 / 440 2395 / 2395 Microbiology Past 72 Hours 06/01/19 15:45 Urine Culture - Preliminary Urine, Clean 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[employer] Laboratory Tests Past 24 Hrs 06/01/19 06/01/19 06/01/19 15:40 15:40 15:40 WBC 10.5 RBC 5.94 Hgb 17.2 H Hct 50.6 MCV 85.2 MCH 29.0 MCHC 34.0 RDW 15.2 H RDW Differential 47.6 H Plt Count 123 L MPV 11.0 Immature Gran % (Auto) 0.400 Neut % (Auto) 79.1 H Lymph % (Auto) 9.8 L [place] % (Auto) 8.6 Eos % (Auto) 1.8 Baso % (Auto) 0.3 Absolute Neuts (auto) 8.3 H Absolute Lymphs (auto) 1.03 Total Counted Not Reportable PT 13.9 INR 1.1 APTT 23.6 L Sodium 134 L Potassium 3.9 Chloride 103 Carbon Dioxide 25.0 Anion Gap 6 BUN 15 Creatinine 0.98 Estim Creat Clear Calc 66.16 Est GFR (MDRD) Af Amer 95 Est GFR (MDRD) Non-Af 79 BUN/Creatinine Ratio 15.3 Glucose 107 H Lactic Acid Calcium 8.8 Magnesium Total Bilirubin 2.40 H Direct Bilirubin 0.96 H AST 114 H ALT 47 Alkaline Phosphatase 124 H Total Creatine Kinase Troponin I 0.487 H Total Protein 8.0 Albumin 3.9 Globulin 4.1 Albumin/Globulin Ratio Triglycerides Cholesterol LDL Cholesterol VLDL Cholesterol HDL Cholesterol Lipase 78 Urine Color Urine Clarity Urine pH Ur Specific [place] Urine Protein Urine Glucose (UA) Urine Ketones Urine Occult Blood Urine Nitrite Urine Bilirubin Urine Urobilinogen Ur Leukocyte Esterase Urine RBC Urine WBC Ur Squamous Epith Cells Urine Bacteria Urine Mucus 06/01/19 06/01/19 06/01/19 15:40 15:40 15:45 WBC RBC Hgb Hct MCV MCH MCHC RDW RDW Differential Plt Count MPV Immature Gran % (Auto) Neut % (Auto) Lymph % (Auto) [place] % (Auto) Eos % (Auto) Baso % (Auto) Absolute Neuts (auto) Absolute Lymphs (auto) Total Counted PT INR APTT Sodium Potassium Chloride Carbon Dioxide Anion Gap BUN Creatinine Estim Creat Clear Calc Est GFR (MDRD) Af Amer Est GFR (MDRD) Non-Af BUN/Creatinine Ratio Glucose Lactic Acid Cancelled Calcium Magnesium Total Bilirubin Direct Bilirubin AST ALT Alkaline Phosphatase Total Creatine Kinase 4033 H Troponin I Total Protein Albumin Globulin Albumin/Globulin Ratio Triglycerides Cholesterol LDL Cholesterol VLDL Cholesterol HDL Cholesterol Lipase Urine Color Dk Yello Urine Clarity Clear Urine pH 5.0 Ur Specific [place] 1.020 Urine Protein 30 H Urine Glucose (UA) Normal Urine Ketones 50 H Urine Occult Blood 150 H Urine Nitrite Positive H Urine Bilirubin 1 H Urine Urobilinogen 4 H Ur Leukocyte Esterase 100 H Urine RBC 0 SEEN Urine WBC 5-10 SEEN Ur Squamous Epith Cells 0 SEEN Urine Bacteria 3+ Urine Mucus 0 SEEN 06/01/19 06/01/19 06/01/19 17:01 20:12 22:45 WBC RBC Hgb Hct MCV MCH MCHC RDW RDW Differential Plt Count MPV Immature Gran % (Auto) Neut % (Auto) Lymph % (Auto) [place] % (Auto) Eos % (Auto) Baso % (Auto) Absolute Neuts (auto) Absolute Lymphs (auto) Total Counted PT INR APTT Sodium Potassium Chloride Carbon Dioxide Anion Gap BUN Creatinine Estim Creat Clear Calc Est GFR (MDRD) Af Amer Est GFR (MDRD) Non-Af BUN/Creatinine Ratio Glucose Lactic Acid 1.3 Calcium Magnesium 1.9 Total Bilirubin Direct Bilirubin AST ALT Alkaline Phosphatase Total Creatine Kinase Troponin I 0.478 H 0.466 H Total Protein Albumin Globulin Albumin/Globulin Ratio Triglycerides Cholesterol LDL Cholesterol VLDL Cholesterol HDL Cholesterol Lipase Urine Color Urine Clarity Urine pH Ur Specific [place] Urine Protein Urine Glucose (UA) Urine Ketones Urine Occult Blood Urine Nitrite Urine Bilirubin Urine Urobilinogen Ur Leukocyte Esterase Urine RBC Urine WBC Ur Squamous Epith Cells Urine Bacteria Urine Mucus 06/02/19 06/02/19 06/02/19 01:52 01:52 01:52 WBC 8.8 RBC 4.73 Hgb 13.9 Hct 40.7 MCV 86.0 MCH 29.4 MCHC 34.2 RDW 15.3 H RDW Differential 47.2 H Plt Count 121 L MPV 10.9 Immature Gran % (Auto) 0.200 Neut % (Auto) 74.6 H Lymph % (Auto) 14.9 L [place] % (Auto) 8.4 Eos % (Auto) 1.7 Baso % (Auto) 0.2 Absolute Neuts (auto) 6.6 Absolute Lymphs (auto) 1.31 Total Counted Not Reportable PT INR APTT Sodium Cancelled Potassium Cancelled Chloride Cancelled Carbon Dioxide Cancelled Anion Gap Cancelled BUN Cancelled Creatinine Cancelled Estim Creat Clear Calc Cancelled Est GFR (MDRD) Af Amer Cancelled Est GFR (MDRD) Non-Af Cancelled BUN/Creatinine Ratio Cancelled Glucose Cancelled Lactic Acid Calcium Cancelled Magnesium Total Bilirubin Cancelled Direct Bilirubin AST Cancelled ALT Cancelled Alkaline Phosphatase Cancelled Total Creatine Kinase Cancelled Troponin I Total Protein Cancelled Albumin Cancelled Globulin Cancelled Albumin/Globulin Ratio Cancelled Triglycerides Cancelled Cholesterol Cancelled LDL Cholesterol Cancelled VLDL Cholesterol Cancelled HDL Cholesterol Cancelled Lipase Urine Color Urine Clarity Urine pH Ur Specific [place] Urine Protein Urine Glucose (UA) Urine Ketones Urine Occult Blood Urine Nitrite Urine Bilirubin Urine Urobilinogen Ur Leukocyte Esterase Urine RBC Urine WBC Ur Squamous Epith Cells Urine Bacteria Urine Mucus 06/02/19 01:52 WBC RBC Hgb Hct MCV MCH MCHC RDW RDW Differential Plt Count MPV Immature Gran % (Auto) Neut % (Auto) Lymph % (Auto) [place] % (Auto) Eos % (Auto) Baso % (Auto) Absolute Neuts (auto) Absolute Lymphs (auto) Total Counted PT INR APTT Sodium 135 L Potassium 3.5 Chloride 106 Carbon Dioxide 24.0 Anion Gap 5 BUN 15 Creatinine 0.90 Estim Creat Clear Calc 72.05 Est GFR (MDRD) Af Amer 105 Est GFR (MDRD) Non-Af 87 BUN/Creatinine Ratio 16.6 Glucose 115 H Lactic Acid Calcium 7.5 L Magnesium Total Bilirubin 0.80 Direct Bilirubin AST 86 H ALT 41 Alkaline Phosphatase 91 Total Creatine Kinase 2071 H Troponin I 0.317 H Total Protein 6.3 L Albumin 2.9 L Globulin 3.4 Albumin/Globulin Ratio 0.9 Triglycerides Cholesterol LDL Cholesterol VLDL Cholesterol HDL Cholesterol Lipase 97 Urine Color Urine Clarity Urine pH Ur Specific [place] Urine Protein Urine Glucose (UA) Urine Ketones Urine Occult Blood Urine Nitrite Urine Bilirubin Urine Urobilinogen Ur Leukocyte Esterase Urine RBC Urine WBC Ur Squamous Epith Cells Urine Bacteria Urine Mucus Medical Necessity - Tobacco Use Smoking Status: Former smoker Tobacco Use: Cigarettes Assessment/Plan All Active Problems SVT (supraventricular tachycardia) (Acute) Abnormal cardiac enzyme level (Acute) Rhabdomyolysis (Acute) Acute bronchitis (Acute) Community acquired MRSA infection (Acute) Essential tremor (Acute) 1. Acute traumatic rhabdomyolysis, secondary to lying in bathtub for at least 24 hour, unable to get up-IV fluids. Trend CK. Improving. PT/OT. Brain CT without acute process. Pelvis x-ray normal. 2. Abnormal troponin-cardiology following. Suspect abnormal troponin secondary to #1. EKG without ST-T changes. Echocardiogram shows an EF of 65%. 3. Paroxysmal SVT-continue metoprolol 50 mg twice daily. Per pharmacy, patient is being prescribed both metoprolol and propranolol. Hold propranolol for now, adjust metoprolol if continues to have intermittent SVT. 4. Mild hypovolemic hyponatremia-IV fluids. Trend BMP. 5. Acute UTI-UA positive for 100 leukocytes, 5-10 WBC, positive nitrite. Urine culture pending. Continue IV Cipro. 6. Elevated bilirubin-suspected secondary to #1. Resolved. 7. Hypertension-stable, continue metoprolol. 8. Crohn's disease-on mesalamine, methotrexate regimen. 9. Depression/dementia-continue home buspirone, donepezil, Klonopin, Zoloft regimen. 10. GERD-continue home Prevacid, Carafate regimen. 11. Essential tremors-on primidone. On propanolol as well however also on metoprolol? 12. Gout-continue allopurinol regimen. 13. BPH-continue Flomax regimen. DVT prophylaxis-Lovenox subcu This patient was seen by KAYLYNN Metcalf under the supervision of Dr. Justice.
[2019-06-02] MEDS: Primidone 250 MG Tablet PO ×2 (15:17→21:35)
[2019-06-02] MEDS: Sucralfate 1 GM Tablet PO (15:25)
--- NOTE | 2019-06-02 15:31 | PCM.PN.CARD ---
Subjectve: The patient is awake. He denies any acute chest discomfort or difficulty breathing. He has not sensed any obvious palpitations or rapid rates. Objective: Vital Signs Temp Pulse Resp BP Pulse Ox 98.5 F 130 H 16 125/66 H 96 06/02/19 15:19 06/02/19 15:19 06/02/19 15:19 06/02/19 15:19 06/02/19 15:19 Oxygen Flow Rate (L/min) 1 Oxygen Delivery Method Room Air Weight: 244 lb 4.355 oz Body Mass Index (BMI) 34.0 Intake and Output for Last 24 Hours 05/31/19 06/01/19 06/02/19 23:59 23:59 23:59 Intake Total 540 / 540 2595 / 2595 Output Total 100 / 100 200 / 200 Balance 440 / 440 2395 / 2395 General: Awake, Cooperative, No Acute Distress, Obese HEENT: Atraumatic, Normocephalic, PERRL, EOMI, Sclera Non Icteric Oral: Moist Mucosa Neck: Supple, Good ROM, No JVD Lungs: Clear to auscultation Cardiovascular: Regular Rhythm, Normal S1, Normal S2 Abdomen: Bowel Sounds Present, Soft, Non Tender, Obese Extremities: No edema Psych/Mental Status: Appropriate 06/01/19 15:40: WBC 10.5, RBC 5.94, Hgb 17.2 H, Hct 50.6, MCV 85.2, MCH 29.0, MCHC 34.0, RDW 15.2 H, RDW Differential 47.6 H, Plt Count 123 L, MPV 11.0, Immature Gran % (Auto) 0.400, Neut % (Auto) 79.1 H, Lymph % (Auto) 9.8 L, Day % (Auto) 8.6, Eos % (Auto) 1.8, Baso % (Auto) 0.3, Absolute Neuts (auto) 8.3 H, Total Counted Not Reportable 06/01/19 15:40: PT 13.9, INR 1.1, APTT 23.6 L 06/01/19 15:40: Sodium 134 L, Potassium 3.9, Chloride 103, Carbon Dioxide 25.0, Anion Gap 6, BUN 15, Creatinine 0.98, Est GFR (MDRD) Af Amer 95, Est GFR (MDRD) Non-Af 79, BUN/Creatinine Ratio 15.3, Glucose 107 H, Calcium 8.8, Total Bilirubin 2.40 H, Direct Bilirubin 0.96 H, Troponin I 0.487 H 06/01/19 15:40: Lactic Acid Cancelled 06/01/19 15:45: Urine Color Dk Yello, Urine Clarity Clear, Urine pH 5.0, Ur Specific Knobel 1.020, Urine Protein 30 H, Urine Glucose (UA) Normal, Urine Ketones 50 H, Urine Occult Blood 150 H, Urine Nitrite Positive H, Urine Bilirubin 1 H, Urine Urobilinogen 4 H, Ur Leukocyte Esterase 100 H, Urine RBC 0 SEEN, Urine WBC 5-10 SEEN 06/01/19 17:01: Lactic Acid 1.3 06/01/19 20:12: Magnesium 1.9, Troponin I 0.478 H 06/01/19 22:45: Troponin I 0.466 H 06/02/19 01:52: WBC 8.8, RBC 4.73, Hgb 13.9, Hct 40.7, MCV 86.0, MCH 29.4, MCHC 34.2, RDW 15.3 H, RDW Differential 47.2 H, Plt Count 121 L, MPV 10.9, Immature Gran % (Auto) 0.200, Neut % (Auto) 74.6 H, Lymph % (Auto) 14.9 L, Day % (Auto) 8.4, Eos % (Auto) 1.7, Baso % (Auto) 0.2, Absolute Neuts (auto) 6.6, Total Counted Not Reportable 06/02/19 01:52: Sodium Cancelled, Potassium Cancelled, Chloride Cancelled, Carbon Dioxide Cancelled, Anion Gap Cancelled, BUN Cancelled, Creatinine Cancelled, Est GFR (MDRD) Af Amer Cancelled, Est GFR (MDRD) Non-Af Cancelled, BUN/Creatinine Ratio Cancelled, Glucose Cancelled, Calcium Cancelled, Total Bilirubin Cancelled 06/02/19 01:52: Triglycerides Cancelled, Cholesterol Cancelled, LDL Cholesterol Cancelled, VLDL Cholesterol Cancelled, HDL Cholesterol Cancelled 06/02/19 01:52: Sodium 135 L, Potassium 3.5, Chloride 106, Carbon Dioxide 24.0, Anion Gap 5, BUN 15, Creatinine 0.90, Est GFR (MDRD) Af Amer 105, Est GFR (MDRD) Non-Af 87, BUN/Creatinine Ratio 16.6, Glucose 115 H, Calcium 7.5 L, Total Bilirubin 0.80, Troponin I 0.317 H Rhythm: Sinus rhythm/sinus tachycardia Echocardiogram: Interpretation Summary The study was technically difficult. Left ventricular systolic function is normal. The estimated ejection fraction is 65 %. Trivial mitral valve insufficiency. Trivial tricuspid valve insufficiency. Right ventricular systolic pressure estimated to be 31 mmHg. Unable to assess diastolic dysfunction. Medical Necessity - Tobacco Use Smoking Status: Former smoker Tobacco Use: Cigarettes Assessment/Plan 1. Abnormal cardiac enzymes/troponin I level The patient has had an indeterminate troponin I level. This is in the setting of a markedly elevated CPK thought secondary to rhabdomyolysis. His repeat troponin I level has decreased. His electric cardiogram is demonstrated no acute elective cardiographic changes. He has undergone further evaluation with a transthoracic echocardiogram. Results are as noted above. At the present time he will continue to be followed. He will continue medical management for the possibility of any underlying cardiovascular disease with medications such as aspirin, nitrates as needed, beta-blockers, etc. 2. Paroxysmal supraventricular tachycardia The patient has findings appearing compatible with underlying PSVT. He is unaware of any history of cardiovascular disease. It is unclear as to whether this is an issue the patient has that has been previously undiagnosed or related to his underlying acute events. At the moment he will continue to be monitored as noted above. He has restarted beta-izabella therapy with metoprolol tartrate. 3. Rhabdomyolysis The patient was in his bathtub for at least 24 hours or greater. His CPK level was markedly elevated compatible with rhabdomyolysis. Again this may be a contributing factor to his troponin I levels. At the moment he is being monitored. He is receiving IV fluids. His enzyme levels CPK level is decreasing. 4. Hypertension He can continue medical management as deemed appropriate. 5. Essential tremor He apparently has been on beta-izabella therapy in the past. He believes he may have been on propranolol therapy in the past. However he is unsure whether the beta-blockers made a difference with his underlying tremor. 6. Dementia The patient appears to be unclear as to a variety of issues that occurred during his recent event that led to his hospitalization. He does admit that he has issues with my brain. He will need continue evaluation and care by internal medicine. However his dementia may become an issue if the patient needs additional noninvasive or invasive studies with respect to being able to understand and/or mandi consent for such studies as well as cooperating with such studies. This note was generated with [employer] software. It may contain incorrect words, spelling, and punctuation that were not noted in checking the note before signing.
[2019-06-02] MEDS: Metoprolol Tartrate 50 MG Tablet PO ×2 (15:43→21:41)
[2019-06-02] MEDS: Donepezil HCl 10 MG Tablet PO (21:34)
[2019-06-02] MEDS: busPIRone 5 MG Tablet 10 MG PO (21:34)
[2019-06-02] MEDS: clonazePAM 1 MG Tablet PO (21:35)
[2019-06-02] MEDS: Montelukast 10 MG Tablet PO (21:35)
[2019-06-02] MEDS: Tamsulosin HCl 0.4 MG Capsule PO (21:40)
[2019-06-03] VITALS (13 sets, daily range): BP systolic 111–130; BP diastolic 58–95; PULSE 69–120; RESP 16–19; TEMP 36.7–37; O2SAT 94–98
[2019-06-03] MEDS: 0.9% NaCl Peripheral Flush Adult/Peds IV (06:19)
[2019-06-03] MEDS: Primidone 250 MG Tablet PO ×3 (06:19→21:46)
[2019-06-03] MEDS: Sucralfate 1 GM Tablet PO ×2 (06:19→15:25)
[2019-06-03 07:06] LABS: ALB/GLOB Ratio 0.8 RATIO (0.9-2.4); AST(SGOT) 53 U/L (15-37); Alanine Aminotransfer ALT/SGPT 35 U/L (16-61); Albumin, Serum 2.6 g/dL (3.2-5.0); Alkaline Phosphatase 77 U/L (45-117); Anion Gap 6 (5-15); BUN 10 mg/dL (7-18); BUN/Creat Ratio 12.1 RATIO (10-20); CPK Total, Creatine Kinase 731 U/L (39-308); Calcium,Total 7.7 mg/dL (8.5-10.1); Chloride 109 mmol/L (98-107); Creatinine, Serum 0.82 mg/dL (0.70-1.30); EST Glomerular Filtration Rate 96 mL/min (>60); Est Glom Filt Rate - Afr Amer 116 mL/min (>60); Estimated Creatinine Clearance 79.08 ml/min; Globulin 3.1 g/dL (2.2-4.2); Glucose 106 mg/dL (74-106); Potassium 3.6 mmol/L (3.5-5.1); Protein, Total 5.7 g/dL (6.4-8.2); Sodium Level 142 mmol/L (136-145)
[2019-06-03] MEDS: Aspirin E.C. 81 MG Tablet PO (09:39)
[2019-06-03] MEDS: Folic Acid 1 MG Tablet PO ×2 (09:39→15:25)
[2019-06-03] MEDS: dilTIAZem CD 120 MG Capsule PO ×2 (09:39→21:45)
[2019-06-03] MEDS: Magnesium Oxide 400 MG Tablet PO (09:40)
[2019-06-03] MEDS: Allopurinol 100 MG Tablet PO (09:40)
[2019-06-03] MEDS: busPIRone 5 MG Tablet 10 MG PO ×2 (09:41→21:45)
[2019-06-03] MEDS: Enoxaparin 40 MG/0.4 ML Syringe SC (09:42)
[2019-06-03] MEDS: Pantoprazole Sodium 40 MG Tablet PO (09:42)
[2019-06-03] MEDS: Metoprolol Tartrate 50 MG Tablet PO ×2 (09:43→21:45)
[2019-06-03] MEDS: Sertraline 100 MG Tablet 200 MG PO (09:43)
[2019-06-03] MEDS: clonazePAM 1 MG Tablet PO ×2 (09:47→21:46)
--- NOTE | 2019-06-03 09:55 | EKG12_ITS ---
Test Reason : ARRHYTHMIA Blood Pressure : / mmHG Vent. Rate : 162 BPM Atrial Rate : 174 BPM P-R Int : 000 ms QRS Dur : 074 ms QT Int : 320 ms P-R-T Axes : 000 232 040 degrees QTc Int : 525 ms Supraventricular tachycardia Possible Lateral infarct , age undetermined Inferior infarct , age undetermined Abnormal ECG Confirmed by ROBB GUERRA, QUINTIN ([id number]), editor farm journal ASHWIN SAMAYOA ([id number]) on 06/05/2019 1:18:45 PM Referred By: Marcelle Thomson Confirmed By:QUINTIN ZAMUDIO MD
[2019-06-03] MEDS: Mesalamine 1.2 GM Tablet 2.4 GM PO (10:51)
[2019-06-03 10:59] LABS: Thyroid Stim Hormone (TSH) 2.43 uIU/mL (0.358-3.74)
[2019-06-03] MEDS: Ciprofloxacin 400 MG/200 ML BAG 200 MG IV ×2 (11:21→21:45)
[2019-06-03] MEDS: Docusate Sodium 100 MG Capsule PO (11:21)
--- NOTE | 2019-06-03 13:50 | PN_ITS ---
Patient Problems: Active and Suspected Problems SVT (supraventricular tachycardia) (Acute) Abnormal cardiac enzyme level (Acute) Rhabdomyolysis (Acute) Subjective: Patient seen and examined. Feels improved. Continues to have generalized weakness. - Physical Exam General: Alert, Oriented x3, Cooperative HEENT: Atraumatic, PERRLA, EOMI, Normocephalic Neck: Supple, No JVD, Negative Carotid Bruits Lungs: Clear to auscultation, Normal air movement Cardiovascular: Regular rate, Regular Rhythm, Normal S1, Normal S2, No murmurs Abdomen: Bowel Sounds Present, Soft, Non Tender Extremities: No clubbing, No cyanosis, No edema, Capillary Refill Less than 3 Seconds Skin: No rashes, No breakdown Musculoskeletal: No Tenderness to Palpation of Joints or Extremities Neurological: Cranial nerves II-XII grossly intact, Neuro grossly intact Psych/Mental Status: Normal Affect, Appropriate Vital Signs Temp Pulse Resp BP Pulse Ox 98.1 F 75 18 120/67 97 06/03/19 09:31 06/03/19 11:58 06/03/19 09:31 06/03/19 09:55 06/03/19 09:31 Oxygen Flow Rate (L/min) 2 Oxygen Delivery Method Room Air Weight: 244 lb 4.355 oz Body Mass Index (BMI) 34.0 Orthostatic Vital Signs Start: 06/03/19 09:55 Freq: q24h Status: Active Protocol: Activity Type Activity Date Activity User E-Sign Co-Sign Detail Recorded Client Recorded Date Recorded By Document 06/03/19 09:55 [facility] [id number] 06/03/19 09:56 ANNETTE 06/03/19 09:55 Orthostatic Vitals Standing -Blood Pressure (90/60-120/80) 124/61 H -Extremity Use Right Arm -Pulse Rate (60-100) 72 Sitting -Blood Pressure (90/60-120/80) 120/60 -Extremity Use Right Arm -Pulse Rate (60-100) 69 Lying -Blood Pressure (90/60-120/80) 120/67 -Extremity Use Right Arm -Pulse Rate (60-100) 87 Intake and Output for Last 24 Hours 06/01/19 06/02/19 06/03/19 23:59 23:59 23:59 Intake Total 540 / 540 4828 / 4828 490 / 490 Output Total 100 / 100 1225 / 1225 325 / 325 Balance 440 / 440 3603 / 3603 165 / 165 Microbiology Past 72 Hours 06/01/19 15:45 Urine Culture - Preliminary Urine, 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 Laboratory Tests Past 24 Hrs 06/03/19 06/03/19 05:55 05:55 Sodium 142 Potassium 3.6 Chloride 109 H Carbon Dioxide 27.0 Anion Gap 6 BUN 10 Creatinine 0.82 Estim Creat Clear Calc 79.08 Est GFR (MDRD) Af Amer 116 Est GFR (MDRD) Non-Af 96 BUN/Creatinine Ratio 12.1 Glucose 106 Calcium 7.7 L Total Bilirubin 0.70 AST 53 H ALT 35 Alkaline Phosphatase 77 Total Creatine Kinase 731 H Total Protein 5.7 L Albumin 2.6 L Globulin 3.1 Albumin/Globulin Ratio 0.8 L TSH 2.43 Medical Necessity - Tobacco Use Smoking Status: Former smoker Tobacco Use: Cigarettes Assessment/Plan All Active Problems SVT (supraventricular tachycardia) (Acute) Abnormal cardiac enzyme level (Acute) Rhabdomyolysis (Acute) Acute bronchitis (Acute) Community acquired MRSA infection (Acute) Essential tremor (Acute) 1. Acute traumatic rhabdomyolysis, secondary to lying in bathtub for at least 24 hour, unable to get up-IV fluids. Trend CK. Improving. PT/OT. Brain CT without acute process. Pelvis x-ray normal. PT recommending additional therapy. Patient declining rehab at [facility]. Possibly open to [facility]. 2. Abnormal troponin-cardiology following. Suspect abnormal troponin secondary to #1. EKG without ST-T changes. Echocardiogram shows an EF of 65%. 3. Paroxysmal SVT-continue metoprolol 50 mg twice daily. Initiated on Cardizem 120 mg twice daily. This may be titrated up if patient continues to have episodes of SVT. 4. Mild hypovolemic hyponatremia-resolved with IV fluids. Trend BMP. 5. Acute UTI-UA positive for 100 leukocytes, 5-10 WBC, positive nitrite. Urine culture preliminary showing gram-negative bryon. Continue IV Cipro. 6. Elevated bilirubin-suspected secondary to #1. Resolved. 7. Hypertension-stable, continue metoprolol. 8. Crohn's disease-on mesalamine, methotrexate regimen. 9. Depression/dementia-continue home buspirone, donepezil, Klonopin, Zoloft regimen. 10. GERD-continue home Prevacid, Carafate regimen. 11. Essential tremors-on primidone. On propanolol as well however also on metoprolol? 12. Gout-continue allopurinol regimen. 13. BPH-continue Flomax regimen. DVT prophylaxis-Lovenox subcu This patient was seen by KAYLYNN Metcalf under the supervision of Dr. Justice.
--- NOTE | 2019-06-03 17:01 | PN.CARD_ITS ---
Subjectve: The patient appears to be resting comfortably today with no acute symptoms. Objective: Vital Signs Temp Pulse Resp BP Pulse Ox 98.6 F 89 16 124/89 H 97 06/03/19 15:27 06/03/19 15:27 06/03/19 15:27 06/03/19 15:27 06/03/19 15:27 Oxygen Flow Rate (L/min) 2 Oxygen Delivery Method Room Air Weight: 244 lb 4.355 oz Body Mass Index (BMI) 34.0 Orthostatic Vital Signs Start: 06/03/19 09:55 Freq: q24h Status: Active Protocol: Activity Type Activity Date Activity User E-Sign Co-Sign Detail Recorded Client Recorded Date Recorded By Document 06/03/19 09:55 ANNETTE [id number] 06/03/19 09:56 ANNETTE 06/03/19 09:55 Orthostatic Vitals Standing -Blood Pressure (90/60-120/80) 124/61 H -Extremity Use Right Arm -Pulse Rate (60-100) 72 Sitting -Blood Pressure (90/60-120/80) 120/60 -Extremity Use Right Arm -Pulse Rate (60-100) 69 Lying -Blood Pressure (90/60-120/80) 120/67 -Extremity Use Right Arm -Pulse Rate (60-100) 87 Intake and Output for Last 24 Hours 06/01/19 06/02/19 06/03/19 23:59 23:59 23:59 Intake Total 540 / 540 4828 / 4828 490 / 490 Output Total 100 / 100 1225 / 1225 325 / 325 Balance 440 / 440 3603 / 3603 165 / 165 General: Awake, Cooperative, No Acute Distress, Obese HEENT: Atraumatic, Normocephalic, PERRL, EOMI, Sclera Non Icteric Oral: Moist Mucosa Neck: Supple, Good ROM, No JVD Lungs: Clear to auscultation Cardiovascular: Regular Rhythm, Normal S1, Normal S2 Abdomen: Bowel Sounds Present, Soft, Non Tender, Obese Extremities: No edema Psych/Mental Status: Dementia 06/03/19 05:55: Sodium 142, Potassium 3.6, Chloride 109 H, Carbon Dioxide 27.0, Anion Gap 6, BUN 10, Creatinine 0.82, Est GFR (MDRD) Af Amer 116, Est GFR (MDRD) Non-Af 96, BUN/Creatinine Ratio 12.1, Glucose 106, Calcium 7.7 L, Total Bilirubin 0.70 Rhythm: Sinus rhythm Medical Necessity - Tobacco Use Smoking Status: Former smoker Tobacco Use: Cigarettes Assessment/Plan 1. Abnormal cardiac enzymes/troponin I level The patient has had an indeterminate troponin I level. This is in the setting of a markedly elevated CPK thought secondary to rhabdomyolysis. His repeat troponin I level has decreased. His electric cardiogram is demonstrated no acute elective cardiographic changes. He has undergone further evaluation with a transthoracic echocardiogram. At the present time he will continue to be followed. He will continue medical management for the possibility of any underlying cardiovascular disease with medications such as aspirin, nitrates as needed, beta-blockers, etc. 2. Paroxysmal supraventricular tachycardia The patient has findings appearing compatible with underlying PSVT. He is unaware of any history of cardiovascular disease. It is unclear as to whether this is an issue the patient has that has been previously undiagnosed or related to his underlying acute events. At the moment he will continue to be monitored as noted above. He has restarted beta-izabella therapy with metoprolol tartrate. His dose has been increased. He is also now been placed on additional medical therapy with diltiazem CD. His rate and rhythm will continue to be monitored. 3. Rhabdomyolysis The patient was in his bathtub for at least 24 hours or greater. His CPK level was markedly elevated compatible with rhabdomyolysis. Again this may be a contributing factor to his troponin I levels. At the moment he is being monitored. He is receiving IV fluids. His enzyme levels CPK level is decreasing. His most recent level has declined to 731. 4. Hypertension He can continue medical management as deemed appropriate. 5. Essential tremor He apparently has been on beta-izabella therapy in the past. He believes he may have been on propranolol therapy in the past. However he is unsure whether the beta-blockers made a difference with his underlying tremor. 6. Dementia The patient appears to be unclear as to a variety of issues that occurred during his recent event that led to his hospitalization. He does admit that he has issues with my brain. He will need continue evaluation and care by internal medicine. However his dementia may become an issue if the patient needs additional noninvasive or invasive studies with respect to being able to understand and/or mandi consent for such studies as well as cooperating with such studies. Overall, the patient continues on medical management. From a cardiovascular standpoint as he recuperates from his rhabdomyolysis, he could be considered for further evaluation of his cardiovascular status. This may include a pharmacologic stress nuclear imaging study to screen for any obvious evidence of ongoing myocardial ischemia that would warrant further evaluation in the cardiac catheterization laboratory. However, if the patient's clinical course changes, this can be reassessed. This note was generated with [employer] dictation software. It may contain incorrect words, spelling, and punctuation that were not noted in checking the note before signing.
[2019-06-03] MEDS: Donepezil HCl 10 MG Tablet PO (21:45)
[2019-06-03] MEDS: Montelukast 10 MG Tablet PO (21:45)
[2019-06-03] MEDS: Tamsulosin HCl 0.4 MG Capsule PO (21:46)
[2019-06-04] VITALS (7 sets, daily range): BP systolic 124–139; BP diastolic 63–72; PULSE 68–75; RESP 18–20; TEMP 36.8; O2SAT 96–97
[2019-06-04] MEDS: Primidone 250 MG Tablet PO ×2 (05:18→15:12)
[2019-06-04] MEDS: Sucralfate 1 GM Tablet PO ×2 (05:18→15:13)
[2019-06-04] MEDS: Folic Acid 1 MG Tablet PO (09:02)
[2019-06-04] MEDS: Aspirin E.C. 81 MG Tablet PO (09:02)
[2019-06-04] MEDS: Allopurinol 100 MG Tablet PO (09:03)
[2019-06-04] MEDS: Magnesium Oxide 400 MG Tablet PO (09:03)
[2019-06-04] MEDS: busPIRone 5 MG Tablet 10 MG PO (09:04)
[2019-06-04] MEDS: Mesalamine 1.2 GM Tablet 2.4 GM PO (09:05)
[2019-06-04] MEDS: dilTIAZem CD 120 MG Capsule PO (09:05)
[2019-06-04] MEDS: Metoprolol Tartrate 50 MG Tablet PO (09:06)
[2019-06-04] MEDS: Enoxaparin 40 MG/0.4 ML Syringe SC (09:06)
[2019-06-04] MEDS: Sertraline 100 MG Tablet 200 MG PO (09:07)
[2019-06-04] MEDS: Pantoprazole Sodium 40 MG Tablet PO (09:07)
[2019-06-04] MEDS: Ciprofloxacin 400 MG/200 ML BAG 200 MG IV (09:15)
[2019-06-04] MEDS: clonazePAM 1 MG Tablet PO (09:15)
--- NOTE | 2019-06-04 10:38 | DCINST_ITS ---
- Discharge Diagnoses Current Active Problems: Current Active and Chronic Problems SVT (supraventricular tachycardia) (Acute) Abnormal cardiac enzyme level (Acute) Rhabdomyolysis (Acute) You will use the following diet at home:: Calorie/Carbohydrate Controlled (specify 1200, 1400, etc) Discharge Activity: Return to Normal Activity Call your doctor if you observe: Shortness of breath, Dizziness, Fainting spells, Chest pain, Increased palpitations (irregular heartbeat) Allergies/Adverse Reactions: Allergies atorvastatin Adverse Reaction (Verified 10/28/16 19:54) Unknown Penicillins Adverse Reaction (Verified 10/28/16 19:54) Unknown Medications to take at Discharge Beta-Carotene [Beta Carotene] 1 tab PO DAILY 08/30/15 Clonazepam [Klonopin] 1 mg PO BID 08/30/15 Co Q10 200 [Co Q-10] 100 mg PO DAILY 08/30/15 Cyanocobalamin (Vitamin B-12) [Vitamin B-12] 1,000 mcg PO DAILY 08/30/15 Folic Acid 1 mg PO BIDCM 08/30/15 Lansoprazole [Prevacid] 30 mg PO DAILY 08/30/15 Multivit-Min/FA/Lycopen/Lutein [Centrum Silver Tablet] 1 each PO DAILY 08/30/15 Sertraline HCl [Zoloft] 200 mg PO DAILY 08/30/15 Sucralfate [Carafate] 1 gm PO BID 08/30/15 Vit A/Vit C/Vit E/Zinc/Copper [Icaps Areds Formula Dr Tablet] 2 each PO DAILY 08/30/15 busPIRone [Buspar] 10 mg PO BID 08/30/15 Donepezil HCl 10 mg PO QHS 10/28/16 Mesalamine [Lialda] 1 tab PO BID 10/28/16 Metoprolol Tartrate [Lopressor (beta izabella)] 50 mg PO BID 10/28/16 Montelukast [Singulair] 10 mg PO QHS 10/28/16 Methotrexate 15 mg PO QWEEK 11/15/17 Tamsulosin HCl [Flomax] 0.4 mg PO QHS 11/15/17 Albuterol Inhaler [Ventolin Hfa] 90 mcg Q4H PRN PRN 06/02/19 Allopurinol 100 mg PO DAILY 06/02/19 Phenazopyridine [Pyridium] 100 mg PO TID PRN 07/05/19 Primidone [Mysoline] 250 mg PO TID 06/02/19 Aspirin E.C. [Ecotrin] 81 mg PO DAILY@0800 #30 tab 06/04/19 Ciprofloxacin [Cipro] 500 mg PO BID #6 tab 06/04/19 Diltiazem CD [Cardizem CD] 120 mg PO Q12 #60 cap 06/04/19 Magnesium Oxide [Mag-Ox 400] 400 mg PO DAILYCM #30 tab 06/04/19 The following prescriptions were given: Diltiazem CD [Cardizem CD] 120 mg PO Q12 #60 cap Transmission Status: Pending to [id number] Ciprofloxacin [Cipro] 500 mg PO BID #6 tab Transmission Status: Pending to [id number] Aspirin E.C. [Ecotrin] 81 mg PO DAILY@0800 #30 tab Transmission Status: Pending to [id number] Magnesium Oxide [Mag-Ox 400] 400 mg PO DAILYCM #30 tab Transmission Status: Pending to [id number] Primary Care Physician: Lena Jauregui MD [Primary Care Provider] - Please follow up with your Primary Care Physician in: As scheduled next week Test Results: Test results from this visit will be discussed in further detail at your follow- up appointment, if applicable. Please Follow Up With: Alexis Samano MD When: 2-4 Weeks Proposed Discharge Date: 06/04/19
--- NOTE | 2019-06-04 10:42 | PCM.DC.SUM ---
Discharge Date and Diagnosis Date of Admission: 06/01/19 Date of Discharge: 06/04/19 - Primary Discharge Diagnosis Active and Suspected Problems 1. Acute traumatic rhabdomyolysis, secondary to lying in bathtub for at least 24 hour, unable to get up 2. Abnormal troponin, ACS ruled out 3. Paroxysmal SVT 4. Mild hypovolemic hyponatremia 5. Acute e. coli UTI 6. Elevated bilirubin-suspected secondary to #1. 7. Hypertension 8. Crohn's disease 9. Depression/dementia 10. GERD- 11. Essential tremors 12. Gout 13. BPH - Secondary Discharge Diagnosis Chronic Problems Benign essential hypertension (Chronic) BPH (benign prostatic hyperplasia) (Chronic) Crohns disease (Chronic) Osteoarthritis (Chronic) History of total knee arthroplasty (Chronic) Depression (Chronic) Dementia (Chronic) Hospital Course and Treatment Imaging Results: Diagnostic Data Brain CT 06/01/19 15:15 IMPRESSION: Moderate atrophy and periventricular white matter ischemic changes. No evidence for acute intracranial bleed Electronically Signed: Manuel Lara MD at 16:24 EDT , Service support , Chest X-Ray 06/01/19 15:50 IMPRESSION: No acute cardiopulmonary pathology. Electronically Signed: Manuel Lara MD at 16:11 EDT , Service support , Pelvis X-Ray 06/01/19 15:50 IMPRESSION: Normal x-ray examination of the pelvis. Electronically Signed: Manuel Lara MD at 16:12 EDT , Service support , Dr. Samano- Cardiology Operations: None Procedures: 2-D Echocardiogram Summary of Care Provided: The patient is a 78 year old M admitted 06/01/2019 due to fall. 1. Acute traumatic rhabdomyolysis, secondary to lying in bathtub for at least 24 hour, unable to get up-IV fluids during admission, CK significantly improved from 4033-731. Brain CT without acute process. Pelvis x-ray normal. Patient declined SNF/Rehab and states he had been managing well on his own prior to fall. Possibly open to home health and community care network. CM to follow up at discharge. 2. Abnormal troponin-cardiology consulted during admission. Suspect abnormal troponin secondary to #1. EKG without ST-T changes. Echocardiogram shows an EF of 65%. ACS ruled out. 3. Paroxysmal SVT-continue metoprolol 50 mg twice daily. Initiated on Cardizem 120 mg twice daily. Patient has not had further paroxysmal SVT following addition of Cardizem. Follow-up with Dr. Samano in 2 to 4 weeks. 4. Mild hypovolemic hyponatremia-resolved with IV fluids. 5. Acute e.coli UTI-UA positive for 100 leukocytes, 5-10 WBC, positive nitrite. Urine culture positive for E. coli. Discharged on Cipro 500 mg twice daily to complete 5-day course of antibiotics. 6. Elevated bilirubin-suspected secondary to #1. Resolved. 7. Hypertension-stable, continue metoprolol. 8. Crohn's disease-on mesalamine, methotrexate regimen. 9. Depression/dementia-continue home buspirone, donepezil, Klonopin, Zoloft regimen. 10. GERD-continue home Prevacid, Carafate regimen. 11. Essential tremors-on primidone. On propanolol as well however also on metoprolol? Propanolol discontinued at discharge. 12. Gout-continue allopurinol regimen. 13. BPH-continue Flomax regimen. General: Alert, Oriented x3, Cooperative HEENT: Atraumatic, PERRLA, EOMI, Normocephalic Neck: Supple, No JVD, Negative Carotid Bruits Lungs: Clear to auscultation, Normal air movement Cardiovascular: Regular rate, Regular Rhythm, Normal S1, Normal S2, No murmurs Abdomen: Bowel Sounds Present, Soft, Non Tender Extremities: No clubbing, No cyanosis, No edema, Capillary Refill Less than 3 Seconds Skin: No rashes, No breakdown Musculoskeletal: No Tenderness to Palpation of Joints or Extremities Neurological: Cranial nerves II-XII grossly intact, Neuro grossly intact Psych/Mental Status: Normal Affect, Appropriate Patient seen and examined prior to discharge. Physical assessment as noted above. Patient is stable for discharge with follow up recommendations as noted above. This patient was seen by KAYLYNN Metcalf under the supervision of Dr. Justice. - Physical Exam Vital Signs Temp Pulse Resp BP Pulse Ox 98.3 F 75 20 H 139/72 H 96 06/04/19 08:19 06/04/19 09:06 06/04/19 08:19 06/04/19 09:06 06/04/19 08:19 Oxygen Flow Rate (L/min) 2 Oxygen Delivery Method Room Air Weight: 244 lb 4.355 oz Body Mass Index (BMI) 34.0 Orthostatic Vital Signs Start: 06/03/19 09:55 Freq: q24h Status: Active Protocol: Activity Type Activity Date Activity User E-Sign Co-Sign Detail Recorded Client Recorded Date Recorded By Document 06/03/19 09:55 ANG [id number] 06/03/19 09:56 ANNETTE 06/03/19 09:55 Orthostatic Vitals Standing -Blood Pressure (90/60-120/80) 124/61 H -Extremity Use Right Arm -Pulse Rate (60-100) 72 Sitting -Blood Pressure (90/60-120/80) 120/60 -Extremity Use Right Arm -Pulse Rate (60-100) 69 Lying -Blood Pressure (90/60-120/80) 120/67 -Extremity Use Right Arm -Pulse Rate (60-100) 87 Intake and Output for Last 24 Hours 06/02/19 06/03/19 06/04/19 23:59 23:59 23:59 Intake Total 4828 / 4828 1090 / 1455 739 / 739 Output Total 1225 / 1225 975 / 975 650 / 650 Balance 3603 / 3603 115 / 480 89 / 89 Microbiology Past 72 Hours 06/01/19 15:45 Urine Culture - Final Urine, Clean Catch Escherichia coli Laboratory Tests Past 24 Hrs 06/03/19 05:55 TSH 2.43 Discharge Diet: Low fat/ Low Cholesterol, 1800 Calorie Control Diet Discharge Activity: Return to Normal Activity Call your doctor if you observe: Shortness of breath, Dizziness, Fainting spells, Chest pain, Increased palpitations (irregular heartbeat) Home Medications: Medications to take at Discharge Beta-Carotene [Beta Carotene] 1 tab PO DAILY 08/30/15 Clonazepam [Klonopin] 1 mg PO BID 08/30/15 Co Q10 200 [Co Q-10] 100 mg PO DAILY 08/30/15 Cyanocobalamin (Vitamin B-12) [Vitamin B-12] 1,000 mcg PO DAILY 08/30/15 Folic Acid 1 mg PO BIDCM 08/30/15 Lansoprazole [Prevacid] 30 mg PO DAILY 08/30/15 Multivit-Min/FA/Lycopen/Lutein [Centrum Silver Tablet] 1 each PO DAILY 08/30/15 Sertraline HCl [Zoloft] 200 mg PO DAILY 08/30/15 Sucralfate [Carafate] 1 gm PO BID 08/30/15 Vit A/Vit C/Vit E/Zinc/Copper [Icaps Areds Formula Dr Tablet] 2 each PO DAILY 08/30/15 busPIRone [Buspar] 10 mg PO BID 08/30/15 Donepezil HCl 10 mg PO QHS 10/28/16 Mesalamine [Lialda] 1 tab PO BID 10/28/16 Metoprolol Tartrate [Lopressor (beta izabella)] 50 mg PO BID 10/28/16 Montelukast [Singulair] 10 mg PO QHS 10/28/16 Methotrexate 15 mg PO QWEEK 11/15/17 Tamsulosin HCl [Flomax] 0.4 mg PO QHS 11/15/17 Albuterol Inhaler [Ventolin Hfa] 90 mcg Q4H PRN PRN 06/02/19 Allopurinol 100 mg PO DAILY 06/02/19 Phenazopyridine [Pyridium] 100 mg PO TID PRN 06/02/19 Primidone [Mysoline] 250 mg PO TID 06/02/19 Aspirin E.C. [Ecotrin] 81 mg PO DAILY@0800 #30 tab 06/04/19 Ciprofloxacin [Cipro] 500 mg PO BID #6 tab 06/04/19 Diltiazem CD [Cardizem CD] 120 mg PO Q12 #60 cap 06/04/19 Magnesium Oxide [Mag-Ox 400] 400 mg PO DAILYCM #30 tab 06/04/19 Following Prescrptions Were Given to Patient: Diltiazem CD [Cardizem CD] 120 mg PO Q12 #60 cap Transmission Status: Pending to [id number] Ciprofloxacin [Cipro] 500 mg PO BID #6 tab Transmission Status: Pending to [id number] Aspirin E.C. [Ecotrin] 81 mg PO DAILY@0800 #30 tab Transmission Status: Pending to [id number] Magnesium Oxide [Mag-Ox 400] 400 mg PO DAILYCM #30 tab Transmission Status: Pending to [id number] Primary Care Physician: Lena Jauregui MD [Primary Care Provider] - Please follow up with your Primary Care Physician in: As scheduled next week Please Follow Up With: Alexis Samano MD When: 2-4 Weeks Disposition: Home Minutes spent on discharge:: 35 Patient Condition:: Stable Medical Necessity - Tobacco Use Smoking Status: Former smoker Tobacco Use: Cigarettes Meaningful Use Info Meaningful Use Diagnoses (Choose all that apply): None applicable
--- NOTE | 2019-06-04 17:01 | PN.CARD_ITS ---
Subjectve: Patient was evaluated earlier this day. He had no new acute symptoms or complaints. Objective: Vital Signs Temp Pulse Resp BP Pulse Ox 98.3 F 73 18 124/63 H 96 06/04/19 16:13 06/04/19 16:13 06/04/19 16:13 06/04/19 16:13 06/04/19 16:13 Oxygen Flow Rate (L/min) 2 Oxygen Delivery Method Room Air Weight: 244 lb 4.355 oz Body Mass Index (BMI) 34.0 Intake and Output for Last 24 Hours 06/02/19 06/03/19 06/04/19 23:59 23:59 23:59 Intake Total 4828 / 4828 1090 / 1455 1421 / 1421 Output Total 1225 / 1225 975 / 975 650 / 650 Balance 3603 / 3603 115 / 480 771 / 771 General: Awake, Alert, Oriented x 3, Cooperative, No Acute Distress, Obese HEENT: Atraumatic, Normocephalic, PERRL, EOMI, Sclera Non Icteric Oral: Moist Mucosa Neck: Supple, Good ROM, No JVD Lungs: Clear to auscultation Cardiovascular: Regular Rhythm, Normal S1, Normal S2 Abdomen: Bowel Sounds Present, Soft, Non Tender Extremities: No edema Neurological: No Focal Motor or Sensory Deficit Psych/Mental Status: Dementia Rhythm: Sinus rhythm Medical Necessity - Tobacco Use Smoking Status: Former smoker Tobacco Use: Cigarettes Assessment/Plan 1. Abnormal cardiac enzymes/troponin I level The patient has had an indeterminate troponin I level. This is in the setting of a markedly elevated CPK thought secondary to rhabdomyolysis. His repeat troponin I level has decreased. His electric cardiogram is demonstrated no acute elective cardiographic changes. He has undergone further evaluation with a transthoracic echocardiogram. At the present time he will continue to be followed. He will continue medical management for the possibility of any underlying cardiovascular disease with medications such as aspirin, nitrates as needed, beta-blockers, etc. 2. Paroxysmal supraventricular tachycardia The patient has findings appearing compatible with underlying PSVT. He is unaware of any history of cardiovascular disease. It is unclear as to whether this is an issue the patient has that has been previously undiagnosed or related to his underlying acute events. At the moment he will continue to be monitored as noted above. He has restarted beta-izabella therapy with metoprolol tartrate. His dose has been increased. He is also now been placed on additional medical therapy with diltiazem CD. He appears to be remaining in sinus rhythm at this time. 3. Rhabdomyolysis The patient was in his bathtub for at least 24 hours or greater. His CPK level was markedly elevated compatible with rhabdomyolysis. Again this may be a contributing factor to his troponin I levels. At the moment he is being monitored. His enzyme levels CPK level is decreasing. His most recent level has declined to 731. 4. Hypertension He can continue medical management as deemed appropriate. 5. Essential tremor He apparently has been on beta-izabella therapy in the past. He believes he may have been on propranolol therapy in the past. However he is unsure whether the beta-blockers made a difference with his underlying tremor. 6. Dementia The patient appears to be unclear as to a variety of issues that occurred during his recent event that led to his hospitalization. He does admit that he has issues with my brain. He will need continue evaluation and care by internal medicine. However his dementia may become an issue if the patient needs additional noninvasive or invasive studies with respect to being able to understand and/or mandi consent for such studies as well as cooperating with [facility]. Overall, the patient continues on medical management. From a cardiovascular standpoint as he recuperates from his rhabdomyolysis, he could be considered for further evaluation of his cardiovascular status. This may include a pharmacologic stress nuclear imaging study to screen for any obvious evidence of ongoing myocardial ischemia that would warrant further evaluation in the cardiac catheterization laboratory. However, if the patient's clinical course changes, this can be reassessed. Comment: At the present time the tentative plan is for the patient to be released home for continued outpatient follow-up with further evaluation care as deemed appropriate as he recuperates from his episode of rhabdomyolysis. Comment: The above was discussed and reviewed with Dr. Justice. This note was generated with [employer] dictation software. It may contain incorrect words, spelling, and punctuation that were not noted in checking the note before signing.
--- NOTE | 2019-06-05 09:15 | CASEMGMT ---
SOBEIDA BRADLEY Discharge F/U Phone Call Per Em DESKTOP ARCHITECT, she would like pt set up with HHC and CCN. This RN KIRK attempted to reach pt for d/c call and to verify that pt would like HHC/CCN at this time. Pt did not answer phone at this time but message left for pt to call this RN KIRK back when able. SStkatelynn VIDALES CM
--- NOTE | 2019-06-06 13:49 | CASEMGMT ---
[facility] PHONE CALL DC DATE: 06/06/19 DC Disposition: Home Diagnosis on Discharge: Home LACE/STRATA: 10/01 Attempted call to home to discuss Home Health or CCN. No answer. Kandice MICHAEL RN AC
== END 2019-06-04 16:15 | disposition home or self-care (01) | DRG 565 ==
LOC: ED 18:18 → PCU 18:31
PROVIDERS: Nurse Practitioner Family; Admitting Provider Student in an Organized Health Care Education/Training Program; Emergency Provider Emergency Medicine; Family Provider Internal Medicine; PCP Internal Medicine; Referring Provider Student in an Organized Health Care Education/Training Program; Visit Provider Internal Medicine
DX: T79.6XXA Traumatic ischemia of muscle, initial encounter (principal); I47.1 Supraventricular tachycardia; E87.1 Hypo-osmolality and hyponatremia; N39.0 Urinary tract infection, site not specified; K50.90 Crohn's disease, unspecified, without complications; W18.2XXA Fall in (into) shower or empty bathtub, initial encounter; G25.0 Essential tremor; I10 Essential (primary) hypertension; F32.9 Major depressive disorder, single episode, unspecified; F41.9 Anxiety disorder, unspecified; F03.90 Unspecified dementia, unspecified severity, without behavioral disturbance, psychotic disturbance, mood disturbance, and anxiety; Z79.899 Other long term (current) drug therapy; E86.1 Hypovolemia; B96.20 Unspecified Escherichia coli [E. coli] as the cause of diseases classified elsewhere; K21.9 Gastro-esophageal reflux disease without esophagitis; M10.9 Gout, unspecified; N40.0 Benign prostatic hyperplasia without lower urinary tract symptoms; M19.90 Unspecified osteoarthritis, unspecified site; Z96.659 Presence of unspecified artificial knee joint; R79.89 Other specified abnormal findings of blood chemistry; F17.210 Nicotine dependence, cigarettes, uncomplicated
CPT/HCPCS: 36415; 70450; 71045; 72170; 80048; 80053; 80076; 81001; 82550; 83605; 83690; 83735; 84443; 84484; 85025; 85610; 85730; 87077; 87086; 87088; 87186; 93005; 93306; 97110; 97116; 97162; 97166; 99285; J7030; Q9957; A4216; J0744

== ENCOUNTER → 2019-07-18 06:51 | Outpatient (CLI) | payer MEDICARE, BC, SELFPAY ==
[2019-06-28 14:54] VITALS: BMI 33.5
--- NOTE | 2019-07-18 10:54 | STRESSREP_ITS ---
Stress Test Report Date: 07-18-19 Procedure: Pharmacologic stress nuclear imaging study Indications: Abnormal cardiac enzymes; SVT Consent: Per the patient Procedure: The patient underwent pharmacologic (Regadenoson) evaluation with a peak heart rate of 96 beats per minute (67 %predicted maximal heart rate) and a peak blood pressure of 146/68 mmHg. The baseline ECG demonstrated sinus bradycardia. The peak pharmacologic ECG demonstrated no obvious ECG changes. There were no cardiac dysrhythmias pretest, during pharmacologic infusion, or recovery. There was no complaint of chest discomfort during pharmacologic infusion or recovery. The examination was discontinued secondary to completion of protocol. Impression: 1. Pharmacologic (Regadenoson) evaluation 2. Peak pharmacologic ECG with no obvious ECG changes. 3. There were no cardiac dysrhythmias pretest, during pharmacologic infusion, or recovery. 4. Nuclear images pending Myocardial perfusion imaging study: Technique: The patient was injected with 15.0 millicuries of technetium 99m Cardiolite and subsequently rest SPECT Cardiolite nuclear imaging was obtained in the horizont al long, vertical long, and short axis views. The patient underwent pharmacologic (Regadenoson) evaluation with a peak heart rate of 96 beats per minute (67 % percent predicted maximal heart rate) and a peak blood pressure of 146/68 mmHg. The patient was injected with 44.6 millicuries of technetium 99m Cardiolite and subsequently stress SPECT Cardiolite nuclear imaging was obtained in the horizontal long, vertical long, and short axis views. A gated Cardiolite study at peak stress was obtained. Interpretation: Rest and stress SPECT Cardiolite nuclear imaging status post realignment, normalization, and attenuation correction demonstrate relative uniform tracer uptake and myocardial perfusion appearing within normal limits. There is end systolic thickening and brightening. The gated Cardiolite study demonstrates myocardial thickening and inward wall motion. The reported LVEF is 72 %. Impression: 1. Rest and stress SPECT Cardiolite nuclear imaging demonstrate relative uniform tracer uptake and myocardial perfusion appearing within normal limits. 2. The gated Cardiolite study reports an LVEF of 72 %. This note was generated with [employer] software. It may contain incorrect words, spelling, and punctuation that were not noted in checking the note before signing.
== END ==
PROVIDERS: Family Provider Internal Medicine; PCP Internal Medicine; Referring Provider Physician Assistant Medical; Visit Provider Physician Assistant Medical
DX: I25.10 Atherosclerotic heart disease of native coronary artery without angina pectoris (principal); I47.1 Supraventricular tachycardia; I10 Essential (primary) hypertension; R74.8 Abnormal levels of other serum enzymes
CPT/HCPCS: 78452; 93017; A9500; A4216; J2785

== ENCOUNTER → 2020-06-06 08:22 | Outpatient (CLI) | payer MEDICARE, BC, SELFPAY ==
[2020-05-27 14:33] VITALS: BMI 29.5
[2020-06-06 09:40] LABS: AST(SGOT) 23 U/L (15-37); Alanine Aminotransfer ALT/SGPT 37 U/L (16-61); Albumin, Serum 3.8 g/dL (3.2-5.0); Alkaline Phosphatase 129 U/L (45-117); Bilirubin, Direct 0.14 mg/dL (0.00-0.30); Cholesterol 170 mg/dL (200); Globulin 3.7 g/dL (2.2-4.2); High Density Lipoprotein 39 mg/dL; Protein, Total 7.5 g/dL (6.4-8.2); Triglycerides 187 mg/dL; Very Low Density Lipoprotein 37 mg/dL (5-40)
== END ==
PROVIDERS: PCP Internal Medicine; Referring Provider Internal Medicine Cardiovascular Disease; Visit Provider Internal Medicine Cardiovascular Disease
DX: E78.00 Pure hypercholesterolemia, unspecified (principal)
CPT/HCPCS: 36415; 80061; 80076

== ENCOUNTER → 2020-10-30 14:03 | Outpatient (CLI) | payer MEDICARE, BC, SELFPAY ==
[2020-05-27 14:33] VITALS: BMI 29.5
--- NOTE | 2020-10-30 15:46 | NEURO ---
NCS and/or EMG Patient Report Ordering Doctor: Mara Duque NP DATE OF SERVICE: 10/30/20 Harley Hoyos presents for electrodiagnostic testing of the left upper limb. He reports numbness and tremors in the left arm. Electrodiagnostic findings: Left median motor nerve demonstrates normal distal latency amplitude with with mild reduction of conduction velocity. Normal left ulnar motor response. Left median sensory latency at the wrist is prolonged. Normal ulnar and radial sensory responses. On needle EMG, all muscles tested in the left upper limb showed no evidence of denervation with normal motor unit action potentials. Electrodiagnostic impression: This is an abnormal study in the left upper limb. 1. Electrodiagnostic findings demonstrate left-sided median mononeuropathy, consistent with a mild left carpal tunnel syndrome. If there are any further questions, please do not hesitate to contact me
== END ==
PROVIDERS: PCP Internal Medicine; Referring Provider Registered Nurse; Visit Provider Registered Nurse
DX: R20.2 Paresthesia of skin (principal)
CPT/HCPCS: 95886; 95910

== ENCOUNTER → 2022-07-29 | Outpatient (CLI) | payer MEDICARE, BC, SELFPAY ==
--- NOTE | 2022-07-29 08:09 | RAD_ITS ---
STUDY: X-RAY - ESOPHAGUS (BARIUM SWALLOW) WITH FLUOROSCOPY REASON FOR EXAM: Male, 81 years old. DYSPHAGIA TECHNIQUE: 20 view(s) of the esophagus were obtained following swallowing of barium. FLUOROSCOPY TIME (if supplied): (34 seconds) minutes/seconds COMPARISON: None. FINDINGS: There is no demonstrated esophageal foreign body. There is no demonstrated stricture or mucosal abnormality. Normal gastroesophageal junction, without a demonstrated hiatal hernia. The patient ingested a 12 mm tablet of barium without any difficulty. Normal visualized aortic arch and descending thoracic aorta. Normal visualized pulmonary parenchyma. There are diffuse degenerative changes of the visualized thoracic spine. RAD/Esophagus Single Contrast IMPRESSION: Normal plain film x-ray examination (barium swallow) of the esophagus. Electronically Signed: Fabian Ward MD at 9:09 EDT ,
== END | disposition home or self-care (01) ==
PROVIDERS: PCP Internal Medicine; Referring Provider Otolaryngology; Visit Provider Otolaryngology
DX: R13.10 Dysphagia, unspecified (principal)
CPT/HCPCS: 74220

== ENCOUNTER → 2024-03-06 | Outpatient (CLI) | payer MEDICARE, BC, SELFPAY ==
--- NOTE | 2024-03-06 14:52 | CT_ITS ---
STUDY: CT ABDOMEN AND PELVIS WITH AND WITHOUT CONTRAST REASON FOR EXAM: Male, 83 years old. GROSS HEMATURIA RADIATION DOSAGE (If Supplied By Facility): CTDIvol = ( 15.26 ) mGy, DLP = ( 1716.66 ) mGycm TECHNIQUE: Transaxial images were obtained from the dome of the diaphragm to the symphysis pubis without oral contrast. IV 100mL Isovue-300 was administered. Sagittal and coronal images were reconstructed. Individualized dose optimization techniques were used for this CT. COMPARISON: None. FINDINGS: Mild degree of linear scarring at the lung bases. Coronary artery calcification. Calcified left hilar lymph node. There is decreased attenuation of the liver consistent with steatosis. There is a 9.2 mm cyst in the left lobe of the liver. There are surgical clips in the gallbladder fossa consistent with a prior cholecystectomy. There are multiple benign calcified granulomata of the spleen. Splenomegaly. Calcified splenic granulomas. Normal pancreas. Normal bilateral adrenal glands. Normal right kidney. There is a 2.2 cm cyst in the lower pole of the left kidney. Normal visualized stomach. Normal small intestine. There are multiple colonic diverticula consistent with diverticulosis. There are mild degree of increased markings in the surrounding mesentery. This may represent noncomplicated sigmoid diverticulitis. The appendix is visualized and appears normal. There is scattered atherosclerotic calcification of the abdominal aorta, without a demonstrated aneurysm. Normal inferior vena cava. Normal retroperitoneum. Normal urinary bladder. There is enlargement of the prostate gland. The prostate measures 3.8 cm x 5.2 cm. This causes indentation of the bladder base. Prostatic calcification. There are bilateral inguinal hernias containing fat more prominent on the left side. There are diffuse degenerative changes of the visualized lumbar spine. CT/CT Abd/Pelvis W/WO Contrast IMPRESSION: Fatty infiltration of the liver. Subcentimeters cyst in the left lobe of liver. Splenomegaly. Left renal cyst. Sigmoid diverticulosis and findings suggest mild degree of diverticulitis. Prostatic enlargement with indentation at the bladder base. Bilateral inguinal hernias containing fat more prominent on the left side. Electronically Signed: Fabian Ward MD at 16:24 EDT ,
[2024-03-06 15:45] LABS: CREATININE FINGERSTICK 1.2 mg/dL (0.70-1.30); EGFR FINGERSTICK > 60.0000 mL/min (>60)
== END | disposition home or self-care (01) ==
LOC: CT 14:48
PROVIDERS: PCP Internal Medicine; Referring Provider Urology; Visit Provider Urology
DX: R31.0 Gross hematuria (principal)
CPT/HCPCS: 74178; Q9967; A4216

== ENCOUNTER 2024-06-13 23:11 | Emergency (ER) | payer MEDICARE, BC, SELFPAY ==
[2024-06-13 23:12] VITALS: BP 127/93; PULSE 64; RESP 18; TEMP 36.6; O2SAT 94; BMI 29.2
--- NOTE | 2024-06-13 23:24 | RAD_ITS ---
INDICATION: pain/dislocation EXAMINATION/TECHNIQUE: X-RAY - LEFT XR Shoulder Min 2 Views 2 VIEWS COMPARISON: No relevant prior comparison study available FINDINGS: SOFT TISSUES: No soft tissue swelling or gas. No radiopaque foreign body. BONES/JOINTS: There is anterior dislocation of the humerus head. No sclerotic or destructive changes observed. RAD/Shoulder min 2 Views IMPRESSION: Anterior dislocation of the glenohumeral joint. Electronically Signed: Barbara Armendariz MD at 0:47 EDT ,
--- NOTE | 2024-06-13 23:24 | RAD_ITS ---
INDICATION: fall EXAMINATION/TECHNIQUE: X-RAY - XR Pelvis 1 or 2 Views COMPARISON: No relevant prior comparison study available FINDINGS: PELVIC BONES: No displaced fracture, destructive or sclerotic lesions. Note that overlapping bowel shadows may however obscure fine detail. Sacroiliac joints are unremarkable. No widening of the pubic symphysis. HIPS: The articular structures are unremarkable. No displaced fracture seen in this frontal view. SOFT TISSUES: No soft tissue swelling or gas. RAD/Pelvis 1 or 2 Views IMPRESSION: No evidence of displaced pelvic or hip fracture. Electronically Signed: Barbara Armendariz MD at 0:48 EDT ,
--- NOTE | 2024-06-13 23:25 | EX.ED.DYSGE1 ---
HPI History of Present Illness Chief Complaint: Fall Informant: patient and EMS Narrative Narrative: Patient is an 83-year-old male with past medical history of essential tremor depression osteoarthritis and hypertension. He states that he is dislocated his shoulders before. He states that roughly an hour prior to arrival he was walking outside where he feeds a stray cat in the neighborhood each night. He states as he was walking holding the cat food he tripped and fell and landed awkwardly causing dislocation to his left shoulder. He denies striking his head or any loss of consciousness or history of bleeding disorder or blood thinner use. He states he was able to get back up but noticed that he had pain and the inability to move the left arm and it felt like it was dislocated. Secondary to his he contacted EMS and was brought in for evaluation. [facility] Medical History Abnormal cardiac enzyme level SVT (supraventricular tachycardia) Acute bronchitis Community acquired MRSA infection Dementia Depression Osteoarthritis Crohns disease BPH (benign prostatic hyperplasia) Benign essential hypertension Home Medications ?Medication ?Instructions ?Recorded ?Last Taken ?Type beta carotene 10,000 unit capsule 1 tab PO DAILY supplement 08/30/15 Unknown History coenzyme Q10 100 mg capsule 100 mg PO DAILY supplement 08/30/15 Unknown History cyanocobalamin (vitamin B-12) 1,000 mcg PO DAILY supplement 08/30/15 Unknown History 1,000 mcg/mL oral drops folic acid 1 mg tablet 1 mg PO BIDCM supplement 08/30/15 Unknown History lansoprazole 30 mg capsule,delayed 30 mg PO DAILY gerd 08/30/15 Unknown History release oozywvav-swk-ptncx acid 0.4 1 ea PO DAILY supplement 08/30/15 Unknown History mg-lycopene 300 mcg-lutein 250 mcg tablet sertraline 100 mg tablet 200 mg PO DAILY depression 08/30/15 Unknown History vit A 7,160 unit-C 113 mg-E 100 2 ea PO DAILY eye supplement 08/30/15 Unknown History czln-uryw-odbspi tablet,delayed rel. montelukast 10 mg tablet 10 mg PO QHS allergies 10/28/16 Unknown History aspirin 81 mg tablet,delayed 81 mg PO DAILY@0800 #30 tabs 06/04/19 Unknown Rx release albuterol sulfate 90 mcg/actuation 2 puff inhalation Q4H PRN 05/27/20 Unknown History aerosol inhaler (Ventolin HFA) shortness of breath or wheezing antiarthritic combination no.2 900 900 mg PO DAILY 05/27/20 Unknown History mg tablet (glucosamine-chondroitin) finasteride 5 mg tablet 5 mg PO DAILY 05/27/20 Unknown History magnesium oxide 400 mg (241.3 mg 400 mg PO BID 05/27/20 Unknown History magnesium) tablet sucralfate 1 gram tablet 1 g PO BID 05/27/20 Unknown History diltiazem HCl 120 mg capsule,24 120 mg PO QAM 11/25/20 Unknown History hr,extended release lisinopril 5 mg tablet 5 mg PO DAILY #90 tabs 08/05/21 Unknown Rx buspirone 10 mg tablet 10 mg PO BID 08/25/21 Unknown History primidone 250 mg tablet 250 mg PO BID 03/20/22 Unknown History propranolol 40 mg tablet 40 mg PO TID 03/20/22 Unknown History donepezil 10 mg tablet 10 mg PO QHS 06/13/24 Unknown History fluticasone propionate 50 2 spray intranasal DAILY 06/13/24 Unknown History mcg/actuation nasal spray,suspension metoprolol tartrate 50 mg tablet 50 mg PO BID 06/13/24 Unknown History tamsulosin 0.4 mg capsule 0.4 mg PO DAILY 06/13/24 Unknown History Allergy/AdvReac Type Severity Reaction Status Date / Time atorvastatin AdvReac Unknown Verified 06/13/24 23:16 Penicillins AdvReac Unknown Verified 06/13/24 23:16 Surgical History History of cholecystectomy History of foot surgery History of tonsillectomy History of total knee arthroplasty Social History Smoking Status: Former smoker how long ago did patient quit smokin' alcohol intake: never substance use type: does not use caffeine: No ROS ROS ED Constitutional Constitutional ED: Denies chills or fever(s) Eyes Eyes: Denies blurry vision or change in vision ENT ENT ED: Denies sore throat Cardiovascular Cardiovascular: Reports other Details: Negative syncope ; Denies chest pain, palpitations or racing heartbeat Respiratory/Chest Respiratory/Chest: Denies cough or dyspnea Gastrointestinal Gastrointestinal: Denies abdominal pain, diarrhea, nausea or vomiting Genitourinary Genitourinary ED: Denies dysuria Musculoskeletal Musculoskeletal: Reports other Details: Positive left shoulder pain ; Denies back pain or neck pain Integumentary Denies Abrasions Neurologic Neurologic: Denies headache(s) or paresthesias Hematologic/Lymphatic Hematologic/Lymphatic: Denies easy bleeding or easy bruising EXAM Physical Exam Const Vital Signs: 06/13/24 23:12 06/13/24 23:19 06/14/24 00:30 Temperature 98 F 98 F Temperature Source Temporal Pulse Rate 64 64 Pulse Rate [1 (Initial Baseline)] Pulse Rate [2] Pulse Rate [3] Pulse Rate [4] Pulse Rate [5] Respiratory Rate 18 19 H Respiratory Rate [1 (Initial Baseline)] Respiratory Rate [2] Respiratory Rate [3] Respiratory Rate [4] Respiratory Rate [5] Respiratory Effort Normal Respiratory Depth Normal Respiratory Pattern Normal Blood Pressure 127/93 H 122/68 H Blood Pressure [1 (Initial Baseline)] Blood Pressure [3] Blood Pressure [5] Blood Pressure Mean 104 Pulse Ox 94 95 Oxygen Delivery Method Room Air Nasal Cannula Oxygen Delivery Method [1 (Initial Baseline)] Oxygen Delivery Method [2] Oxygen Delivery Method [3] Oxygen Delivery Method [4] Oxygen Delivery Method [5] Oxygen Flow Rate (L/min) 2 Oxygen Flow Rate (L/min) [1 (Initial Baseline)] Oxygen Flow Rate (L/min) [2] Oxygen Flow Rate (L/min) [3] Oxygen Flow Rate (L/min) [4] Oxygen Flow Rate (L/min) [5] 06/14/24 00:45 06/14/24 00:50 06/14/24 00:55 Temperature Temperature Source Pulse Rate Pulse Rate [1 (Initial Baseline)] Pulse Rate [2] Pulse Rate [3] Pulse Rate [4] Pulse Rate [5] Respiratory Rate Respiratory Rate [1 (Initial Baseline)] Respiratory Rate [2] Respiratory Rate [3] Respiratory Rate [4] Respiratory Rate [5] Respiratory Effort Respiratory Depth Respiratory Pattern Blood Pressure Blood Pressure [1 (Initial Baseline)] Blood Pressure [3] Blood Pressure [5] Blood Pressure Mean Pulse Ox Oxygen Delivery Method Nasal Cannula Nasal Cannula Room Air Oxygen Delivery Method [1 (Initial Baseline)] Oxygen Delivery Method [2] Oxygen Delivery Method [3] Oxygen Delivery Method [4] Oxygen Delivery Method [5] Oxygen Flow Rate (L/min) 2 2 Oxygen Flow Rate (L/min) [1 (Initial Baseline)] Oxygen Flow Rate (L/min) [2] Oxygen Flow Rate (L/min) [3] Oxygen Flow Rate (L/min) [4] Oxygen Flow Rate (L/min) [5] 06/14/24 00:58 Temperature Temperature Source Pulse Rate Pulse Rate [1 (Initial Baseline)] 64 Pulse Rate [2] 62 Pulse Rate [3] 62 Pulse Rate [4] 67 Pulse Rate [5] 57 L Respiratory Rate Respiratory Rate [1 (Initial Baseline)] 18 Respiratory Rate [2] 15 Respiratory Rate [3] 19 H Respiratory Rate [4] 17 Respiratory Rate [5] 19 H Respiratory Effort Respiratory Depth Respiratory Pattern Blood Pressure Blood Pressure [1 (Initial Baseline)] 114/59 L Blood Pressure [3] 124/82 H Blood Pressure [5] 115/74 Blood Pressure Mean Pulse Ox Oxygen Delivery Method Oxygen Delivery Method [1 (Initial Baseline)] Nasal Cannula Oxygen Delivery Method [2] Nasal Cannula Oxygen Delivery Method [3] Nasal Cannula Oxygen Delivery Method [4] Nasal Cannula Oxygen Delivery Method [5] Nasal Cannula Oxygen Flow Rate (L/min) Oxygen Flow Rate (L/min) [1 (Initial Baseline)] 2 Oxygen Flow Rate (L/min) [2] 2 Oxygen Flow Rate (L/min) [3] 2 Oxygen Flow Rate (L/min) [4] 2 Oxygen Flow Rate (L/min) [5] 2 Positive well nourished and well developed General Appearance ED: well developed; Negative for pallor HEENT HEENT Narrative: Normocephalic atraumatic No signs of depressed or basilar skull fracture Eyes PERRL and EOMs intact bilaterally General Eye ED: Negative for pale conjunctiva or scleral icterus Neck supple Neck Narrative: No bony deformity or step-off of the cervical spine no midline tenderness to palpation Chest Wall palpation of chest normal Chest Narrative: No bony deformity or crepitance noted Resp normal respiratory effort and clear to auscultation bilaterally Cardio regular rate and regular rhythm GI normal to inspection, nondistended, normoactive bowel sounds, non-tender, non-distended and no masses GI Narrative: No voluntary guarding or rigidity No pulsatile mass or fluid wave No overlying abrasions or ecchymosis Auscultation: normoactive bowel sounds Palpation: soft Back/Spine Back/Spine Narrative: No bony deformity or step-off of the thoracic or lumbar spine no midline tenderness to palpation Extremity Extremity Narrative: Pelvis is stable there is no shortening or external rotation of either lower extremity. Patient does have mild pain on palpation in the inguinal region bilaterally. Left upper extremity is neurovascularly intact. No joint effusion. However there is a sulcus sign present. Active and passive range of motion is extremely limited secondary to pain and concern for dislocation. Compartments are soft and compressible going against compartment syndrome. Remainder of the exam is normal Neuro oriented x3, CN's II-XII intact bilaterally and no sensory deficits noted Sensorium / Orientation: alert Psych mental status grossly normal Skin no rashes or lesions noted and no wounds General Skin Exam: Negative for jaundice or pallor MDM MDM MDM Narrative Medical decision making narrative: Patient arrived to ER with stable vitals and reported a mechanical fall therefore there is no need for cardiac or syncope workup. He did not strike his head or have loss of consciousness he does not have signs of head trauma there is no midline neck discomfort and he is not report history of bleeding disorder nor does he take blood thinner so there is no need for head or cervical spine CT. based on the fall there is concern for shoulder dislocation versus fracture versus pelvic fracture so x-rays were ordered. X-rays confirmed a shoulder dislocation without fracture. Patient underwent conscious sedation as documented below and had the shoulder reduced. After this he was put in a sling and swath and kept in the ER until his mental status returned to normal. At which time as his shoulder has been reduced and underlying signs of trauma have been ruled out he is otherwise safe for discharge Patient underwent conscious sedation using a total of 40 mg of propofol and 5 mg of Versed IV. Traction countertraction was applied and there was spontaneous reduction of the shoulder joint. Confirmation was by physical exam and x-ray. Patient was placed in a sling and swath following this. Patient tolerated procedure well without complication. Approximate conscious sedation time of 20 minutes. History & Record Review Discussion w/independent historian: EMS personnel and Patient Radiography Diagnostic Testing: X-ray of the left shoulder as interpreted by the emergency medicine physician reveals a anterior shoulder dislocation without acute fracture X-ray of the pelvis as interpreted by the emergency medicine physician reveals degenerative changes without acute fracture or dislocation X-ray of the left shoulder status post reduction as interpreted by emergency medicine physician reveals satisfactory reduction of the left shoulder dislocation without fracture Procedures Procedural Sedation 1 (Initial Baseline): Consent Signed: Yes Any Problems With Anesthesia: No You/Your family experience fever (hyperthermia) w/anesthesia: No Sedation medication: Versed Dose: 40 Route: IV Maliampati Score: Class II ASA Classification: III Discharge Plan Triage Chief Complaint: Fall ED Provider: Davon Crowe Dx/Rx/DC Orders Clinical Impression: Anterior dislocation of left shoulder, Benign essential hypertension, Osteoarthritis, Essential tremor, Accidental fall Instructions: ED Dislocation: Shoulder (Reduced) Prescriptions: No Action albuterol sulfate [Ventolin HFA] 90 mcg/actuation HFA aerosol inhaler 2 puff INHALATION Q4H PRN (Reason: shortness of breath or wheezing) finasteride 5 mg tablet 5 mg PO DAILY glucosamine-chondroitin 900 mg tablet 900 mg PO DAILY magnesium oxide 400 mg (241.3 mg magnesium) tablet 400 mg PO BID sucralfate 1 gram tablet 1 g PO BID primidone 250 mg tablet 250 mg PO BID diltiazem HCl 120 mg capsule,extended release 24 hr 120 mg PO QAM buspirone 10 mg tablet 10 mg PO BID propranolol 40 mg tablet 40 mg PO TID sertraline 100 MG tablet 200 mg PO DAILY lansoprazole 30 MG capsule 30 mg PO DAILY beta carotene 10,000 UNIT capsule 1 tab PO DAILY folic acid 1 MG tablet 1 mg PO BIDCM coenzyme Q10 100 MG capsule 100 mg PO DAILY zhbaiuja-fic-JO-lycopen-lutein 1 EACH tablet 1 ea PO DAILY cyanocobalamin (vitamin B-12) 1,000 MCG/ML drops 1,000 mcg PO DAILY vitamins A,C,Z-kjkl-oewtfm 1 EACH tablet,delayed release (DR/EC) 2 ea PO DAILY montelukast 10 MG tablet 10 mg PO QHS aspirin 81 MG tablet 81 mg PO DAILY@0800 Qty: 30 0RF donepezil 10 mg tablet 10 mg PO QHS tamsulosin 0.4 mg capsule 0.4 mg PO DAILY metoprolol tartrate 50 mg tablet 50 mg PO BID fluticasone propionate 50 mcg/actuation spray,suspension 2 spray INTRANASAL DAILY lisinopril 5 mg tablet 5 mg PO DAILY Qty: 90 3RF Primary Care Provider: Lena Jauregui Referrals: Lena Jauregui MD [Primary Care Provider] - Spittle,Gabo, DO [Med Staff - Active Staff] - Activity Restrictions/Additional Instructions: Please wear your sling and swath for stabilization of your dislocated shoulder for the next few days and follow-up with orthopedics for further evaluation. Return to the ER should you have any further concerns Print Language: Faroese Disposition Disposition: Home, Self Care
[2024-06-13] MEDS: Ondansetron 4 MG/2 ML Vial IV (23:33)
[2024-06-13] MEDS: Morphine 4 MG/ML Syringe IV (23:33)
[2024-06-14] MEDS: LORazepam 2 MG/ML Syringe 1 MG IV (00:07)
[2024-06-14 00:30] VITALS: BP 122/68; PULSE 64; RESP 19; TEMP 36.6; O2SAT 95
[2024-06-14] MEDS: Midazolam 5 MG/ML Syringe IV (00:35)
[2024-06-14] MEDS: Propofol 200 MG/20 ML Vial 100 MG IV BOLUS (00:35)
[2024-06-14 00:45] VITALS: BP 124/82; O2SAT 96
[2024-06-14 00:50] VITALS: BP 121/70; O2SAT 97
--- NOTE | 2024-06-14 00:50 | RAD_ITS ---
STUDY: X-RAY - LEFT SHOULDER REASON FOR EXAM: Male, 83 years old patient presents after closed reduction. TECHNIQUE: 2 view(s) of the shoulder. COMPARISON: Prereduction radiographs of the left shoulder dated June 13, 2024. FINDINGS: Normal glenohumeral articulation. There is some mobility of the acromial clavicular joint suggesting type I acromioclavicular joint separation. Normal acromion. There is demineralization of the humerus and visualized osseous structures. The soft tissue structures are unremarkable. There is no demonstrated fracture. Normal visualized left lung. RAD/Shoulder min 2 Views IMPRESSION: Technically successful closed reduction of anterior shoulder dislocation. Electronically Signed: Tracy Yoder MD at 2:09 EDT ,
[2024-06-14 00:55] VITALS: BP 108/63; O2SAT 96
[2024-06-14 00:58] VITALS: BP 114/59; BP 115/74; BP 124/82; PULSE 57; PULSE 62; PULSE 64; PULSE 67; RESP 15; RESP 17; RESP 18; RESP 19; O2SAT 94; O2SAT 95
[2024-06-14 01:42] VITALS: BP 132/80; PULSE 62; RESP 18; TEMP 36.6; O2SAT 94
== END 2024-06-14 02:30 | disposition home or self-care (01) ==
PROVIDERS: Emergency Provider Emergency Medicine; PCP Internal Medicine; Visit Provider Emergency Medicine
DX: M24.412 Recurrent dislocation, left shoulder (principal); W01.0XXA Fall on same level from slipping, tripping and stumbling without subsequent striking against object, initial encounter; I10 Essential (primary) hypertension; M19.012 Primary osteoarthritis, left shoulder; G25.0 Essential tremor; Z79.899 Other long term (current) drug therapy; Z87.891 Personal history of nicotine dependence
CPT/HCPCS: 23650; 72170; 73030; 96374; 96375; 99152; 99285; J7030; A4216; J2405

== ENCOUNTER → 2024-07-19 | Outpatient (CLI) | payer MEDICARE, BC, SELFPAY ==
--- NOTE | 2024-07-19 15:19 | NEURO ---
NCS and/or EMG Patient Report Ordering Doctor: Gabo Francisco DATE OF SERVICE: 07/19/24 Harley presents electrodiagnostic testing of the left upper limb. He has complaints of pain around the left shoulder and burning in the upper arm. Electrodiagnostic findings: Left median motor nerve demonstrates normal distal latency, amplitude and conduction velocity. Left ulnar motor response within normal limits, including conduction across the elbow. Normal left median ulnar F?waves. Sensory responses are within normal limits. Needle EMG testing was performed the left upper limb. All muscles tested showed no evidence of denervation with normal motor unit action potentials. Electrodiagnostic impression: This is a normal electrodiagnostic study of the left upper limb. There is no electrodiagnostic evidence for cervical radiculopathy or peripheral neuropathy, including carpal tunnel or cubital tunnel syndrome. Multi Select Codes Neurology Neurology Interp Codes: 83657-80 Musc test done w/n test comp (interp) and 72126-10 Nrv cndj tst 5-6 studies (interp)
== END | disposition home or self-care (01) ==
LOC: PSN 09:05
PROVIDERS: PCP Internal Medicine; Referring Provider Student in an Organized Health Care Education/Training Program; Visit Provider Student in an Organized Health Care Education/Training Program
DX: R20.2 Paresthesia of skin (principal)
CPT/HCPCS: 95886; 95909

== ENCOUNTER 2024-08-07 14:00 | Outpatient (RCR) | payer MEDICARE, BC, SELFPAY ==
--- NOTE | 2024-08-02 11:28 | HP.PTEVAL_ITS ---
Patient's Visit Information Visit Information Visit Information: EVELIA NAILS Jr. is a 83 year old M referred to Physical Therapy by Dr. Gabo Francisco DO with a diagnosis of L shoulder dislocation, L shoulder OA.. Date of Evaluation: 07/27/24 Physical Therapist: Tyson Allen DPT Visit Plan Frequency: 2x /Week Duration: 4 Weeks Plan: Start with shoulder isometrics, AAROM L shoulder (ie barbara, possibly wand) May use ice and heat for pain control AVOID flexion/ER positioning and end range H abduction Subjective Subjective: Pt. is here today for his initial evaluation with diagnosis of dislocation of L shoulder, OA of L shoulder, instability of L shoulder. Pt. reports dislocating his shoulder DOI: 06/14/24. Pt. was taken to hospital where it was relocated. Pt. reports still having alot of trouble with using his L UE. Pt. reports only being slightly better. He is scheduled to have an MRI, but not for another 2 weeks. Pt. reports his pain is at mid deltoid region. Pt. is having trouble with sleeping, UB dressing. He is able to drive but uses mostly his R UE. Pt. reports having a long history of multiple dislocations of B shoulders, but this was his worst. Pt. is hopeful to get back to previously levels of function and decrease his L shoulder pain. Pain L shoulder: Pain Intensity (Out of 10): 4 Pain Intensity Range: 3 and 8 Objective Objective: POSTURE: Pt. has forward head posture. L shoulder in guarded posture at side. Normal shoulder heights noted. PALPATION: Pt. tender throughout L shoulder, worst at anterior shoulder including biceps and supraspinatus attachments. NEURO: Pt. has normal sensation in BUEs. Pt. has normal DTR of biceps and triceps. ROM: L shoulder: PROM: L shoulder: flexion 135deg, abd 100deg, ER at side 30deg, IR at 30deg of abd 30deg. Pain limiting all motions. AROM: L shoulder: flexion 60deg, abd 45deg, functional IR L5, functional ER C1 aberrant motion. MMT: flexion 0#, abd 0#, ext 19#, ER 0#, IR 10#. Special Tests L Shoulder Drop Sign - IS Test: Positive L Shoulder Empty Can - SS: Positive L Shoulder Neer - Impingement: Positive L Shoulder [place] - Impingement: Positive Balance/Special Test Scores Quick DASH Score: 68.1800 Goals Goal 1:: LTG: Pt. to be I with HEP. Goal Time Frame: 4-6 Weeks Goal 2:: LTG: pt to have increased L shoulder strength symmetrical to R side. Goal Time Frame: 4-6 Weeks Goal 3:: LTG: pt. to be able to complete all UB dressing without increase in L shoulder pain. Goal Time Frame: 4-6 Weeks Goal 4:: STG: pt. to sleep throughout the night without increase in L shoulder pain. Goal Time Frame: 2-4 Weeks Goal 5:: LTG: Pt. to have increased L shoulder AROM symmetrical to R shoulder. Goal Time Frame: 4-6 Weeks Rehabilitation Potential Physical Therapy Diagnosis: Pt. has signs and symptoms consistent with L shoulder dislocation and L shoulder OA. Pt. after dislocation at minimal ER strength and + drop arm test. Pt. has marked weakness and very limited PROM and AROM of his L shoulder. We will try and work on strengthening and ROM as able. Rehabilitation Potential: Fair Anticipated Interventions Patient/Client Instruction: Educate patient on: Condition, Plan of Care, Risk Factors and Benefits of Fitness Program For the Purpose of:: To foster healthy habits, To improve decision making, To facilitate caregiver knowledge, To improve self management, To prevent re-injury and To improve ability to perform tasks related to life management Therapeutic Exercise to Include: Strength training, Power training, Flexibilty training, Passive ROM, Active ROM and Scapular Strength/Stabilization For the Purpose of:: To decrease pain, To decrease swelling/inflammation, To increase ROM, To improve nutrient delivery to tissue, To increase oxygenation perfusion, To improve health of tissue, To decrease soft tissue restriction and To increase flexibility/ROM Text: Thank you for the opportunity to evaluate your patient. For Medicare and Medicare HMO plans, please review the plan of care and approve it. It will need to be FAXED BACK to us at [phone] for Medicare purposes. For Medicare only, by signing this I certify the plan of care. Please let me know if there are questions or concerns regarding this plan of care. Physician Signature: _Date:
== END 2024-08-07 19:00 | disposition home or self-care (01) ==
LOC: PT 14:00
PROVIDERS: PCP Internal Medicine; Referring Provider Student in an Organized Health Care Education/Training Program; Visit Provider Student in an Organized Health Care Education/Training Program
DX: S43.005D Unspecified dislocation of left shoulder joint, subsequent encounter (principal); M25.312 Other instability, left shoulder; M19.012 Primary osteoarthritis, left shoulder
CPT/HCPCS: 97110; 97161

== ENCOUNTER → 2024-09-18 | Outpatient (CLI) | payer MEDICARE, BC, SELFPAY ==
--- NOTE | 2024-09-18 15:09 | CT_ITS ---
STUDY: CT LEFT SHOULDER REASON FOR EXAM: Male, 83 years old. Anterior dislocation of left humerus BRUNO RADIATION DOSAGE (If Supplied By Facility): CTDIvol = ( 24.25 ) mGy, DLP = ( 587.60 ) mGycm TECHNIQUE: The patient was scanned in a multi detector CT scanner. High resolution transaxial imaging was performed without the administration of intravenous contrast material. Sagittal and coronal images were reconstructed. Individualized dose optimization techniques were used for this CT. COMPARISON: None. FINDINGS: There is calcification/ossification of the anterior-inferior glenoid labrum (axial series 2 images 67-72). Normal glenohumeral joint with no subluxation/dislocation. Intact glenoid rim, neck and visualized scapula. Normal humeral head, neck and tuberosities. There is calcification along the course of the infraspinatus tendon, which could be related to calcific tendinitis. Normal coracoid process. Normal visualized lateral clavicle. There is minimal acromioclavicular arthrosis. There is a Type II morphology (curved), with a neutral orientation. Normal visualized muscles and soft tissue structures. CT/Extremity Upper without Contra IMPRESSION: Calcification/ossification of the anterior-inferior glenoid labrum. No glenohumeral subluxation/dislocation. Calcification along the course of the infraspinatus tendon, which could be related to calcific tendinitis. Minimal acromioclavicular arthrosis. Electronically Signed: Jorge Durbin MD at 13:05 EDT ,
== END | disposition home or self-care (01) ==
LOC: CT 14:48
PROVIDERS: PCP Internal Medicine; Referring Provider Student in an Organized Health Care Education/Training Program; Visit Provider Student in an Organized Health Care Education/Training Program
DX: S43.015D Anterior dislocation of left humerus, subsequent encounter (principal)
CPT/HCPCS: 73200

== ENCOUNTER 2024-10-12 10:44 | Observation (INO) | payer MEDICARE, BC, SELFPAY ==
[2024-09-28 13:28] LABS: Absolute Lymphocyte Count 1.61 X10^3/uL (0.83-4.51); Absolute Neutrophil Count 6.4 X10^3/uL (2.0-7.7); Basophil# 0.05 X10^3/uL; Basophil% 0.6 % (0-1); Eosinophil# 0.11 X10^3/uL; Eosinophils% 1.3 % (0-5); Hematocrit 39.8 % (40-54); Hemoglobin 12.2 g/dL (13.0-16.5); Lymphocyte # 1.61 X10^3/ul (0.83-4.51); Lymphocyte % 18.4 % (19-41); Mean Corp Hgb Conc 30.7 g/dL (32-36); Mean Corpuscular Hgb 26.4 pg (27.0-32.0); Mean Corpuscular Volume 86.1 fL (80-94); Mean Platelet Vol. 10.1 fl (6.2-12.0); Monocyte# 0.47 X10^3/uL; Monocyte% 5.4 % (0-10); NRBC Flagged by Analyzer 0 % (0-5); Neutrophil # 6.43 X10^3/uL (2.7-7.7); Neutrophil % 73.5 % (47-70); Platelet Count 212 K/mm3 (150-450); RBC Distribution Width CV 15.4 % (11.6-14.6); RBC Distribution Width SD 47.8 fl (35.1-43.9); Red Blood Count 4.62 M/mm3 (4.6-6.2); White Blood Count 8.7 K/mm3 (4.4-11.0)
[2024-09-28 13:54] LABS: Magnesium 2.4 mg/dL (1.6-2.6)
[2024-09-28 13:57] LABS: Albumin, Serum 3.4 g/dL (3.2-5.0); Anion Gap 4 (5-15); BUN 20 mg/dL (7-18); BUN/Creat Ratio 15.9 RATIO (10-20); Calcium,Total 9.1 mg/dL (8.5-10.1); Chloride 107 mmol/L (98-107); Creatinine, Serum 1.26 mg/dL (0.70-1.30); EST Glomerular Filtration Rate 58 mL/min (>60); Est Glom Filt Rate - Afr Amer 70 mL/min (>60); Glucose 128 mg/dL (74-106); Potassium 4.5 mmol/L (3.5-5.1); Sodium Level 137 mmol/L (136-145)
[2024-10-12] VITALS (16 sets, daily range): BP systolic 104–129; BP diastolic 7–76; PULSE 58–75; RESP 14–18; TEMP 36.1–36.6; O2SAT 85–98; BMI 28.9
[2024-10-12] MEDS: Celecoxib 200 MG Capsule 400 MG PO (07:36)
[2024-10-12] MEDS: Gabapentin 600 MG Tablet PO (07:36)
[2024-10-12] MEDS: Acetaminophen 500 MG Tablet 1000 MG PO ×3 (07:36→21:42)
[2024-10-12] MEDS: Magnesium 1 GM over 15 mins IV (07:37)
[2024-10-12] MEDS: Lactated Ringers 1,000 ML 999 ML IV (07:37)
[2024-10-12 07:43] LABS: Bedside Glucose 156 mg/dL (74-106)
--- NOTE | 2024-10-12 08:02 | PCM.PRE.AN2 ---
ASA Classification* ASA Classification ASA Classification: 2 Assessment & Plan Anesthesia* Anesthesia Assessment Anesthesia Assessment: Discussed sedation and/or anesthesia options, risks, benefits, and alternatives with patient/parents/legal guardian/POA. Questions invited. The patient/parents/legal guardian/POA seems to understand and agrees to proceed with anesthesia plan. Reviewed the physical assessment, medical history, allergy history and patient home medications list prior to surgery/procedure/anesthetic and documented any changes. Performed airway and anesthesia risk assessments. Anesthesia Type Anesthesia Type: General and Block Anesthesia Focused Assessment* Temperature: 97.5 F Pulse Rate: 69 Blood Pressure: 123/7 Respiratory Rate: 16 Pulse Ox: 97 Airway Assessment Mouth opens: >3 cm Mallampati Score: II Focused Labs Anesthesia Preop lab: CBC WBC 8.7 K/mm3 (4.4-11.0) 09/28/24 13:14 RBC 4.62 M/mm3 (4.6-6.2) 09/28/24 13:14 Hgb 12.2 g/dL (13.0-16.5) L 09/28/24 13:14 Hct 39.8 % (40-54) L 09/28/24 13:14 Plt Count 212 K/mm3 (150-450) 09/28/24 13:14 CHEMISTRY Potassium 4.5 mmol/L (3.5-5.1) 09/28/24 13:14 Sodium 137 mmol/L (136-145) 09/28/24 13:14 Magnesium 2.4 mg/dL (1.6-2.6) 09/28/24 13:14 BUN 20 mg/dL (7-18) H 09/28/24 13:14 Creatinine 1.26 mg/dL (0.70-1.30) 09/28/24 13:14 Glucose 128 mg/dL (74-106) H 09/28/24 13:14 POC Glucose 156 mg/dL (74-106) H 10/12/24 07:24 TSH 2.43 uIU/mL (0.358-3.74) 06/03/19 05:55 COAG PT 13.9 SECONDS (11.7-14.9) 06/01/19 15:40 Pre-Assessment Diagnosis/Proposed Procedure Planned Operative Procedure(s): (L) Total Shoulder Replacement, Reverse Anesthesia History 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 When Was Last Pacemaker Check QUESTION #4 FULL TEXT: You/Your Family Experience fever (hyperthermia) with Anesthesia Last Oral Intake Last Oral intake: Last Oral Intake NPO since 05:40 10/12/24 07:29 Meds taken in AM with sips of No 10/12/24 07:29 water? Meds patient instructed to take am of surgery PONV PONV - advertising vice president: PONV - advertising vice president Female No 09/13/24 11:37 HX of Motion Sickness Yes 09/13/24 11:37 HX of N/V After Surgery No 09/13/24 11:37 Non-Smoker Yes 09/13/24 11:37 Duration of Surgery greater Yes 09/13/24 11:37 than 60 minutes Number of Risk Factors 3 09/13/24 11:37 PONV Score Moderate Risk 09/13/24 11:37 Height & Weight Height & Weight: Anesthesia: Height & Weight Height 5 ft 11 in 10/12/24 07:29 Weight: 94 kg 10/12/24 07:29 Body Mass Index (BMI) 28.9 10/12/24 07:29 Respiratory Assessment Respiratory Assessment - advertising vice president: Respiratory Tract Infection Hx - advertising vice president Hx Respiratory Tract Infection No 09/13/24 11:37 STOP Sleep Apnea STOP Sleep Apnea - advertising vice president: STOP Sleep Apnea - advertising vice president Hx Hypertension Yes: CONTROLLED ON MED 09/13/24 11:37 Hx Sleep Apnea No 09/13/24 11:37 CPAP BIPAP Do you snore loudly (louder No 09/13/24 11:37 than talking or can be heard Do you often feel tired/ No 09/13/24 11:37 fatigued/ sleepy during daytime? Has anyone observed you stop No 09/13/24 11:37 breathing during sleep? STOP Results Negative 09/13/24 11:37 QUESTION #5 FULL TEXT : Do you snore loudly (louder than talking or can be heard through closed doors)? Tobacco Use History Tobacco Use History - advertising vice president: Tobacco Use History - advertising vice president Tobacco Use Non-smoker 08/25/21 16:38 Smoking Status Former smoker 09/13/24 11:37 Hx Tobacco Use No 09/13/24 11:37 Years Smoking Packs Smoked per Day Smoking Cessation Date was No - quit smoking greater 09/13/24 11:37 within the last 15 years than 15 years ago Hx Smoking Cessation Date Hx Smoking Cessation No 09/13/24 11:37 Counseling Hematologic Medial History Hematologic Hx - advertising vice president: Hematologic Medical Hx - branch officer Hx of Blood Transfusion No 09/13/24 11:37 Hx of Transfusion in last 3 No 09/13/24 11:37 Months Date of Last Transfusion (if within last 3 months) Ever experience any problems No 09/13/24 11:37 with transfusion(s)? Specify any problems Hx of Preganancy in last 3 N/A 09/13/24 11:37 Months Nurse Filling Out Transfusion VCHRISTIN 09/13/24 11:37 & Questions: Date: 09/13/24 09/13/24 11:37 Time: 11:38 09/13/24 11:37 Patient unable to answer at this time (ie. confused, unrespo /Reproduction History /Reproductive History - advertising vice president: /Reproductive Hx- advertising vice president Hx Now Gestational Age (in weeks): EDC: Hx Hx Para Hx Section SAB Active Medications Active Medications: Current Medications Generic Name Dose Route Start Last Admin Trade Name Freq PRN Reason Stop Dose Admin Lactated Ringer's 1,000 mls @ 999 mls/hr 10/12/24 07:30 10/12/24 07:37 IV 10/12/24 08:30 999 mls/hr .Q1H1M JANNET Administration Tranexamic Acid 1,000 mg/ 110 mls @ 660 mls/hr 10/12/24 08:30 Sodium Chloride IV 10/12/24 08:39 X1 ONE Lactated Ringer's 1,000 mls @ 999 mls/hr 10/12/24 07:30 IV 10/12/24 08:30 .Q1H1M JANNET Lactated Ringer's 1,000 mls @ 125 mls/hr 10/12/24 07:30 IV 10/12/24 15:29 .Q8H JANNET Lactated Ringer's 1,000 mls @ 75 mls/hr 10/12/24 07:30 IV 10/12/24 20:49 .[id number] JANNET Insulin Human Lispro 1 - 6 unit 10/12/24 07:30 Insulin Lispro 100 Unit/Ml Insuln.Pen SC 10/12/24 18:00 Q4H PRN PRN BG>/= 180, SEE PROTOCOL Protocol PFSH Medical History Wears glasses Alcohol use Arthritis Kidney stones Back pain Injury of head and neck Difficulty swallowing History of Crohn's disease History of diverticulitis Gastric reflux Former smoker Asthma Hoarseness Chronic cough History of pain when walking History of edema History of stress test History of echocardiogram Hypertension Cardiology follow-up encounter History of atrial fibrillation Abnormal cardiac enzyme level SVT (supraventricular tachycardia) Acute bronchitis Community acquired MRSA infection Dementia Depression Osteoarthritis Crohns disease BPH (benign prostatic hyperplasia) Benign essential hypertension Home Medications ?Medication ?Instructions ?Recorded ?Last Taken ?Type coenzyme Q10 100 mg capsule 100 mg PO DAILY supplement 08/30/15 10/11/24 History cyanocobalamin (vitamin B-12) 1,000 mcg PO DAILY supplement 08/30/15 10/11/24 History 1,000 mcg/mL oral drops folic acid 1 mg tablet 1 mg PO BIDCM supplement 08/30/15 10/11/24 History lansoprazole 30 mg capsule,delayed 30 mg PO BID gerd 08/30/15 10/11/24 History release dfvryvjm-jzm-rflep acid 0.4 1 ea PO DAILY supplement 08/30/15 10/11/24 History mg-lycopene 300 mcg-lutein 250 mcg tablet sertraline 100 mg tablet 200 mg PO DAILY depression 08/30/15 10/11/24 History vit A 7,160 unit-C 113 mg-E 100 2 ea PO DAILY eye supplement 08/30/15 10/11/24 History tnbe-fkjw-fiocgs tablet,delayed rel. montelukast 10 mg tablet 10 mg PO QHS allergies 10/28/16 10/11/24 History albuterol sulfate 90 mcg/actuation 2 puff inhalation Q4H PRN 05/27/20 10/11/24 History aerosol inhaler (Ventolin HFA) shortness of breath or wheezing antiarthritic combination no.2 900 900 mg PO DAILY 05/27/20 10/11/24 History mg tablet (glucosamine-chondroitin) finasteride 5 mg tablet 5 mg PO DAILY 05/27/20 10/11/24 History magnesium oxide 400 mg (241.3 mg 400 mg PO BID 05/27/20 10/11/24 History magnesium) tablet sucralfate 1 gram tablet 1 g PO BID 05/27/20 10/11/24 History diltiazem HCl 120 mg capsule,24 120 mg PO QAM 11/25/20 10/11/24 History hr,extended release lisinopril 5 mg tablet 5 mg PO DAILY #90 tabs 08/05/21 Unknown Rx buspirone 10 mg tablet 10 mg PO BID 08/25/21 10/11/24 History primidone 250 mg tablet 250 mg PO BID 03/20/22 10/11/24 History propranolol 40 mg tablet 40 mg PO TID 03/20/22 10/11/24 History donepezil 10 mg tablet 10 mg PO QHS 06/13/24 10/11/24 History metoprolol tartrate 50 mg tablet 50 mg PO BID 06/13/24 10/11/24 History tamsulosin 0.4 mg capsule 0.4 mg PO DAILY 06/13/24 10/11/24 History mesalamine 1.2 gram tablet,delayed 2.4 g PO BID 09/13/24 10/11/24 History release Allergy/AdvReac Type Severity Reaction Status Date / Time atorvastatin AdvReac Unknown Verified 10/12/24 07:28 Penicillins AdvReac Unknown Verified 10/12/24 07:28 Surgical History Hx of sinus surgery Hx of umbilical hernia repair History of cholecystectomy History of tonsillectomy History of foot surgery History of total knee arthroplasty Social History Smoking Status: Former smoker how long ago did patient quit smokin's alcohol intake: never substance use type: does not use caffeine: No Review of Systems (Anesthesia) ROS Narrative System reviewed and no additional complaints, except as documented.
[2024-10-12] MEDS: Lactated Ringers 1,000 ML 75 ML IV (08:58)
[2024-10-12] MEDS: Cefazolin 2 GM in Syringe IV ×2 (09:06→17:28)
[2024-10-12] MEDS: TXA 1000mg in NS100 100ml (IVPB at Incision) 660 MG IV (09:06)
[2024-10-12] MEDS: dexAMETHasone 10 MG/ML Vial IV (09:20)
--- NOTE | 2024-10-12 09:30 | SHO_PTH ---
PATIENT: EVELIA NAILS Jr. LOC: MS3 U#:[id number] AGE/SX: 83/M ROOM: [facility] RE10/12/[address]: Dr. Gabo Francisco DO : 1940 BED: 1 DIS: 10/17/2024 SPEC #: [id number] RECD: 10/12/24 11:18 STATUS: CARLY RICHARDJairo #: [id number] DIANNA: 10/12/24 09:[address]: Gabo Francisco DEPT: SURGICAL PATHOLOGY RECD BY: Dennis Jerry ENTERED: 10/12/24 11:46 SP TYPE: HUMERUS OTHR DR: MD Dr. Lena Nash MD Tissues: Humerus, NOS Procedures: Decalcification bone/plaque Surgery Specimen Level IV HEADER OPERATION: Total shoulder replacement PRE-OP DIAGNOSIS: Severe glenohumeral joint arthritis left shoulder TISSUE SUBMITTED: Bone and soft tissue left shoulder MICROSCOPIC DIAGNOSIS Bone and tissue left shoulder, total shoulder replacement/resection: Degenerative osteoarthritis (DJD). Intertrabecular multilineage hematopoiesis. FA. 10/18/2024 MICROSCOPIC DESCRIPTION Slides are reviewed. GROSS DESCRIPTION Received is one container labeled with the patient's name and designated bone and soft tissue. The specimen consists of a humeral head measuring 5.0 x 5.0 x 2.5 cm. Humeral head show minimal area of erosion. The articular surface shows areas of erosion, eburnation and osteophyte formation. No soft tissue is identified. Supervisor Cell Maintenance sections are submitted in two cassettes after decalcification. / SJ: 10/12/2024 TC:5 CPT: 00104, 45075
[2024-10-12] MEDS: TXA 1000mg in NS100 100ml (IVPB at Closure) 660 MG IV (10:23)
--- NOTE | 2024-10-12 10:56 | PCM.OPRPT ---
Operative Report (Standard) Operative Information Surgery/Procedure Performed: Left reverse total shoulder arthroplasty Surgeon: Gabo Francisco Date of Procedure: 10/12/24 Procedure Start Time: 09:31 Procedure Stop Time: 10:43 Pre-Operative Diagnosis: Left shoulder cuff tear arthropathy Post-Operative Diagnosis: Left shoulder cuff tear arthropathy Select all DRAINS/GRAFTS/IMPLANTS that apply: None (See dictated operative report below) Type of Anesthesia: General/Regional Estimated Blood Loss: 50 cc Fluids Replaced: Per anesthesia record Specimen collected: Yes Description of specimen(s) removed: Left humeral head Description of surgery: Preoperative diagnosis: Left shoulder rotator cuff arthropathy Postoperative diagnosis: Left shoulder rotator cuff arthropathy Procedure: Left Reverse total shoulder arthroplasty Surgeon: Gabo Francisco DO Nitroglycerin Distributor: Shirley Hopkins PA-C Anesthesia: General endotracheal Weapons Electrical Engineering Officer: Robel De Leon CRNA Complications: None apparent Drains: None Urinary output: None IV fluids: Per anesthesia record Specimens: None Surgical implants: Tornier Aequalis PerFORM+ reversed baseplate 29 mm diameter +6 mm lateralization, standard glenosphere cobalt chrome 42 mm diameter, Tornier perform inlay stem size #3, +0 mm retentive size number 3 42 mm diameter polyethylene insert, short central post and peripheral screws x4. Surgical indications: This is an 83-year-old male with persistent left shoulder pain. He did have worsening symptoms over the last several months. X-rays revealed rotator cuff arthropathy. He failed nonsurgical treatment. I recommended a reverse shoulder arthroplasty. We obtained a preoperative CT scan for planning. The risks, benefits, alternatives the procedure was reviewed with the patient and he agreed to proceed. Risks included but were not limited to bleeding, infection, instability, loss of life or limb, risk of anesthesia, neurovascular injury, persistent pain, stiffness, prolonged immobilization, need for additional surgery, loosening of orthopedic hardware. He expressed understanding and wished to proceed with surgery. Surgical details: Patient arrived to [facility] morning of the procedure and was greeted by the same day surgery staff. Prior to his procedure, I greeted the patient in the preoperative holding area I identified the patient by name, record number, and date of . Informed consent was confirmed. The operative extremity was marked. All questions were answered to patient satisfaction. An interscalene block was administered prior to procedure by anesthesia staff for postoperative and intraoperative analgesia. At time of his procedure, patient was brought to the operative suite and positioned supine on a standard table with a beachchair attachment. General anesthesia was induced after all bony prominences were well-padded. Endotracheal tube was placed. After adequate anesthesia and securing the tube, we prepared the patient to be positioned in the beachchair position. A well-padded pile header was applied. The nonoperative extremity was placed in a well arm orta. He was then brought into the beachchair position after we confirmed an appropriate blood pressure. We then spun the bed 45 degrees. The operative extremity was then prepared. The butterfly wing of the bed was removed and a well-padded torso strap was applied to secure the patient to the bed. The operative extremity was now free. We then prepped and draped the Left upper extremity in normal, sterile orthopedic fashion. We then performed a timeout with all parties in attendance in agreement with the side, site, and operation be performed. 2 g Ancef was administered prior to incision by anesthesia staff, as well as 1 g TXA IV. No concerns were voiced and we elected to proceed. I first marked a standard deltopectoral incision just lateral to the coracoid process in line with the long axis of the humerus. Skin was sharply incised with 10 blade scalpel. I then dissected bluntly through the subcutaneous layers and found the fat stripe between the deltoid and pectoralis major. The cephalic vein was then identified and protected. It was retracted laterally with the deltoid. I then bluntly dissected underneath the deltoid with a Griffiths elevator. Diana retractor was placed. The upper 1 cm of the pectoralis major was released. I then identified the long head of the biceps tendon in the intertubercular groove. This was tenodesed in situ with #2 FiberWire. I then amputated the biceps proximal to the tenodesis site and followed the tendon to the supraglenoid tubercle where it was amputated. This identified the lesser and greater tuberosities. The supraspinatus was completely torn and retracted with an exposed greater tuberosity. I then performed a subscapularis peel while rotating the humerus externally. I tagged the subscapularis for possible repair later with a tagging suture. Humeral head was then dislocated anteriorly. Appropriate access to the humeral head was confirmed. I then subluxed the humeral head posteriorly with a Fukuda retractor placed around the posterior lip of the glenoid. Inferior capsule was tension. I was able to palpate the axillary nerve. Inferior capsule was then released to the 4 o'clock position of the glenoid face. 3 sided subscapularis release was performed with Bovie cautery. I then remove the Fukuda retractor and redislocated the shoulder anteriorly. I then made a anatomic neck cut of the cartilaginous surface of the humeral head. Sizing plate for a size # 3 stem was utilized to determine appropriate reaming size. A central pin was placed engaging the lateral cortex of the humerus. A size # 3 reamer was used to ream the humeral metaphysis and prepare for the inlay stem. A canal finding reamer was utilized prior to sequential broaching to a size # 3 short stem with excellent rotational and axial purchase in the humerus. I remove the broach handle left the size # [address] I then subluxed the humerus posterior to the glenoid. I then placed retractors around the posterior and anterior glenoid to expose the glenoid. Glenoid labrum was removed with Bovie cautery protecting the axillary nerve. We then used the custom guide from [employer] to position our centering pin, exiting approximately 25 mm from the joint surface along the anterior scapula. Guide was removed and pin was analyzed and compared to preoperative planning. It appeared to be in appropriate position. The Nautilus shaped reamer was then placed over top of the centering pin. I reamed a flat surface of the glenoid. We then removed the reamer and used the cannulated drill for the short central post. Post and baseplate was assembled on the back table. We then inserted the baseplate and central post the assembled baseplate to an appropriate depth with good press-fit purchase. A Edwards was used to confirm depth. Cortical screws then were placed in the peripheral holes with good purchase. The baseplate had excellent purchase and the entire scapula would rotate with rotation of the baseplate. We then impacted the 42 mm glenosphere with a standard eccentricity and tightened the locking screw mechanism. We then removed retractors and turned our attention back to the humerus. I placed a standard +0 millimeters retentive polyethylene insert. I then reduced the shoulder. There was excellent range of motion and stability in all planes of motion. We selected this as our final size. We removed trials from the humerus after final dislocation. I copiously irrigated the canal. Broach was placed on hand and then impacted to an appropriate depth. Final + 0 mm retentive polyethylene insert was placed. Final reduction was then performed. The subscapularis was then identified with a tagging suture. Repair would have been likely under undue tension and likely failed. I elected to not perform a subscapularis repair. We then copiously irrigated the wound with sterile Betadine and normal saline solution. We reapproximated the interval with 0 Vicryl suture. Subcutaneous layers were reapproximated with 2 -0 Vicryl suture. Skin was finally running V-Loc 3-0 Monocryl suture and Dermabond. A sterile silver Mepilex dressing was applied. Patient was then placed in an ultra sling. Patient tolerated procedure well without complication. He was positioned back in the supine position extubated in the operative suite. He was transferred to the rtujunga and subsequently to PACU in stable condition. Need for skilled bioinformatics assistant: Shirley Hopkins PA-C was critical to the outcome of the case. During the course of the procedure the physician bioinformatics assistant played a vital role. Her intimate knowledge of my steps in the procedure aided in safe and expedient completion of the procedure. The PA played a vital role in positioning particularly in obtaining the appropriate positioning. The PA was also vital in the retraction of soft tissues during the exposure and protecting vital structures. The PA was also vital and protecting soft tissues during times of bony cuts. She also played a vital role in closure with my direct supervision. The PA was also important during reduction and dislocation of the joint and trials intraoperatively. Intraoperative medications: 2 g Ancef IV, 1 g TXA IV x2 Post Operative Plan: Patient lives at home alone. Will mobilize him with therapy and place patient observation overnight. Possible placement versus home health care. Weightbearing: Nonweightbearing left upper extremity, okay for pendulums. Range of motion of wrist elbow and hand as tolerated. Antibiotics: 2 g Ancef IV prior to incision, 24 hours IV antibiotics postoperatively DVT Prophylaxis: Aspirin enteric-coated 81 mg twice daily starting tomorrow Chua: None Dressing: Maintain silver dressing x7 days. Okay to shower dressing on started on day 4 X-Rays: 2 weeks postop in the office Pain Medication: Oxycodone Rx upon discharge Follow-up: 2 weeks post-operatively with me in the office Surgical Findings: See dictated operative report Electronic Warfare Operator stamp maker: Yes Nitroglycerin Distributor: Shirley Hopkins Tasks completed by first responder: Opening & closing and Hemostasis: Electrocautery Additional bioinformatics assistant?: No Complications Complications: No Admit VTE Documentation VTE Present on Admission: No VTE Mechan Device Prophylaxis: SCD's VTE Pharm Prophylaxis ordered?: Yes
--- NOTE | 2024-10-12 11:10 | RAD_ITS ---
STUDY: X-RAY - LEFT SHOULDER REASON FOR EXAM: Male, 83 years old. Post op -- AP and Lateral X-Ray of operative shoulder in PACU. TECHNIQUE: 2 views of the left shoulder. COMPARISON: Left shoulder radiographs dated 06/14/2024. FINDINGS: There is a new left reverse shoulder arthroplasty in place. There is no periprosthetic fracture. There is surrounding soft tissue gas, compatible with recent surgery. There is unchanged acromioclavicular arthrosis. Intact acromion. The soft tissue structures are otherwise unremarkable. Normal visualized pulmonary apex. RAD/Shoulder min 2 Views IMPRESSION: New left reverse shoulder arthroplasty in place. No periprosthetic fracture. Electronically Signed: Jorge Durbin MD at 11:41 EST ,
[2024-10-12] MEDS: Lactated Ringers 1,000 ML 125 ML IV (11:20)
[2024-10-12] MEDS: Sucralfate 1 GM Tablet PO (15:28)
[2024-10-12] MEDS: Propranolol 40 MG Tablet PO ×2 (15:28→21:40)
--- NOTE | 2024-10-12 15:33 | PCM.POST.ANE ---
Anesthesia: Postop Eval I Current Vital Signs Temperature: 97 F Pulse Rate: 73 Blood Pressure: 115/62 Respiratory Rate: 16 Pulse Ox: 98 Oxygen Delivery Method: Room Air Assessment Airway patent: Yes Spontaneous unlabored respirations: Yes Mental status: Awake and Calm nausea: No Vomiting: No Anesthesia Complication: No Fluid Hydration Crystalloid volume administer (ml): 1,500 Total IV fluid infused: 1,500 Progress Note Anesthesia document: Postop Eval 1 completed: Yes
--- NOTE | 2024-10-12 16:47 | POSTOPAN2_ITS ---
Anesthesia Postop Eval I Sum Postop Eval Completion status Anesthesia document: Postop Eval 1 completed: Yes Anesthesia Postop Eval I Summary Anesthesia Postop Eval I Summary: Anesthesia Postop Eval I: Assessment Summary Airway patent Yes 10/12/24 15:34 [email or web address] Spontaneous unlabored Yes 10/12/24 15:34 [email or web address] respirations Mental status Awake,Calm 10/12/24 15:34 [email or web address] nausea No 10/12/24 15:34 [email or web address] Vomiting No 10/12/24 15:34 [email or web address] Anesthesia Postop Eval I: Fluid Summary Crystalloid volume administer 1,500 10/12/24 15:34 [email or web address] (ml) Colloids volume administered ( ml) Blood Product volume administered (ml) Total IV fluid infused 1,500 10/12/24 15:34 [email or web address] Anesthesia Postop Eval I: Summary Notes Anesthesia Complication No 10/12/24 15:34 [email or web address] Anesthesia Complication Comment: Post-operative progress note Anesthesia: Postop Eval II Evaluation Mental status: Awake Pain Level: 0 nausea: No Vomiting: No
--- NOTE | 2024-10-12 16:47 | PCM.POSTANE2 ---
Anesthesia Postop Eval I Sum Postop Eval Completion status Anesthesia document: Postop Eval 1 completed: Yes Anesthesia Postop Eval I Summary Anesthesia Postop Eval I Summary: Anesthesia Postop Eval I: Assessment Summary Airway patent Yes 10/12/24 15:34 [email or web address] Spontaneous unlabored Yes 10/12/24 15:34 [email or web address] respirations Mental status Awake,Calm 10/12/24 15:34 [email or web address] nausea No 10/12/24 15:34 [email or web address] Vomiting No 10/12/24 15:34 [email or web address] Anesthesia Postop Eval I: Fluid Summary Crystalloid volume administer 1,500 10/12/24 15:34 [email or web address] (ml) Colloids volume administered ( ml) Blood Product volume administered (ml) Total IV fluid infused 1,500 10/12/24 15:34 [email or web address] Anesthesia Postop Eval I: Summary Notes Anesthesia Complication No 10/12/24 15:34 [email or web address] Anesthesia Complication Comment: Post-operative progress note Anesthesia: Postop Eval II Evaluation Mental status: Awake Pain Level: 0 nausea: No Vomiting: No
[2024-10-12] MEDS: 0.9% Saline Lock 10 ML Syringe IV (17:28)
[2024-10-12] MEDS: Folic Acid 1 MG Tablet PO (17:29)
[2024-10-12] MEDS: Montelukast 10 MG Tablet PO (21:37)
[2024-10-12] MEDS: busPIRone 5 MG Tablet 10 MG PO (21:37)
[2024-10-12] MEDS: Primidone 250 MG Tablet PO (21:38)
[2024-10-12] MEDS: Senna/Docusate Sodium 1 Tablet 2 TABLET PO (21:39)
[2024-10-12] MEDS: Lansoprazole 15 MG Capsule.DR 30 MG PO (21:40)
[2024-10-12] MEDS: Metoprolol Tartrate 50 MG Tablet PO (21:43)
[2024-10-12] MEDS: Donepezil HCl 10 MG Tablet PO (21:44)
[2024-10-12] MEDS: Mesalamine 1.2 GM Tablet 2.4 GM PO (21:44)
[2024-10-12] MEDS: Magnesium Chloride 64 MG Delay Rel.Tablet 128 MG PO (21:46)
[2024-10-13] VITALS (7 sets, daily range): BP systolic 109–129; BP diastolic 52–77; PULSE 58–80; RESP 15–18; TEMP 36.4–36.9; O2SAT 92–97; BMI 28.9
[2024-10-13] MEDS: Cefazolin 2 GM in Syringe IV (02:06)
--- NOTE | 2024-10-13 04:46 | NURSING ---
pt noted to have urinary frequency tonight. denies c/o pain. bladder scanned for 747 cc. straight cath'd for 700cc. pt reports he does have prostate issues and has problems like this emptying his bladder @ times. pt rama well
[2024-10-13 06:07] LABS: Hematocrit 33.7 % (40-54); Hemoglobin 10.5 g/dL (13.0-16.5); Mean Corp Hgb Conc 31.2 g/dL (32-36); Mean Corpuscular Hgb 26.9 pg (27.0-32.0); Mean Corpuscular Volume 86.4 fL (80-94); Mean Platelet Vol. 10.9 fl (6.2-12.0); Platelet Count 135 K/mm3 (150-450); RBC Distribution Width CV 15.9 % (11.6-14.6); RBC Distribution Width SD 49.6 fl (35.1-43.9); White Blood Count 9.4 K/mm3 (4.4-11.0)
[2024-10-13 06:29] LABS: Anion Gap 5 (5-15); BUN 17 mg/dL (7-18); BUN/Creat Ratio 14.8 RATIO (10-20); Calcium,Total 8.7 mg/dL (8.5-10.1); Chloride 106 mmol/L (98-107); Creatinine, Serum 1.15 mg/dL (0.70-1.30); EST Glomerular Filtration Rate 64 mL/min (>60); Est Glom Filt Rate - Afr Amer 78 mL/min (>60); Estimated Creatinine Clearance 56.99 ml/min; Glucose 101 mg/dL (74-106); Potassium 3.9 mmol/L (3.5-5.1); Sodium Level 137 mmol/L (136-145)
[2024-10-13] MEDS: Acetaminophen 500 MG Tablet 1000 MG PO ×3 (06:36→21:49)
[2024-10-13] MEDS: Sucralfate 1 GM Tablet PO ×2 (06:36→15:24)
[2024-10-13] MEDS: Aspirin E.C. 81 MG Tablet PO (08:13)
[2024-10-13] MEDS: busPIRone 5 MG Tablet 10 MG PO ×2 (08:13→21:49)
[2024-10-13] MEDS: Lansoprazole 15 MG Capsule.DR 30 MG PO ×2 (08:14→21:48)
[2024-10-13] MEDS: Folic Acid 1 MG Tablet PO ×2 (08:14→15:24)
[2024-10-13] MEDS: Tamsulosin HCl 0.4 MG Capsule PO (08:14)
[2024-10-13] MEDS: Magnesium Chloride 64 MG Delay Rel.Tablet 128 MG PO ×2 (08:15→21:48)
[2024-10-13] MEDS: Mesalamine 1.2 GM Tablet 2.4 GM PO ×2 (08:15→21:48)
[2024-10-13] MEDS: Metoprolol Tartrate 50 MG Tablet PO ×2 (08:15→21:48)
[2024-10-13] MEDS: Finasteride 5 MG Tablet PO (08:16)
[2024-10-13] MEDS: Senna/Docusate Sodium 1 Tablet 2 TABLET PO ×2 (08:16→21:49)
[2024-10-13] MEDS: Primidone 250 MG Tablet PO ×2 (08:16→21:48)
[2024-10-13] MEDS: Sertraline 100 MG Tablet 200 MG PO (08:17)
--- NOTE | 2024-10-13 11:24 | PCM.PN.ORT ---
Subjective Subjective Patient is an 83-year-old male status post reverse left total shoulder arthroplasty with Dr. Francisco 10/12/2024. Patient doing well postoperatively. Maintains in sling at all times nonweightbearing to left upper extremity. He has been up with physical therapy. Patient reports pain 4 out of 10. Denies fever chest pain shortness of breath or other signs of DVT. Dressing maintained postoperatively unchanged. Objective Data Objective Data Vital Signs: Vital Signs Temp Pulse Resp BP Pulse Ox O2 Del Method O2 Flow Rate 97.6 F L 80 15 109/52 L 97 Room Air 3 10/13/24 06:33 10/13/24 08:15 10/13/24 06:33 10/13/24 06:33 10/13/24 06:33 10/13/24 06:33 10/12/24 12:00 Oxygen Flow Rate (L/min) 3 Oxygen Delivery Method Room Air Weight: 94 kg Body Mass Index (BMI) 28.9 Intake & Output: Intake and Output for Last 24 Hours 10/11/24 10/12/24 10/13/24 23:59 23:59 23:59 Intake Total 3482 / 3482 20 Output Total 800 / 800 Balance 3482 / 3482 -780 / -780 Lab / Micro Data 10/13/24 05:26 10/13/24 05:26 Labs: Laboratory Results - last 24 hr 10/13/24 05:26: WBC 9.4, RBC 3.90 L, Hgb 10.5 L, Hct 33.7 L, MCV 86.4, MCH 26.9 L, MCHC 31.2 L, RDW Std Deviation 49.6 H, RDW Coeff of Max 15.9 H, Plt Count 135 L, MPV 10.9, Sodium 137, Potassium 3.9, Chloride 106, Carbon Dioxide 26.0, Anion Gap 5, BUN 17, Creatinine 1.15, Estim Creat Clear Calc 56.99, Est GFR (MDRD) Af Amer 78, Est GFR (MDRD) Non-Af 64, BUN/Creatinine Ratio 14.8, Glucose 101, Calcium 8.7 Micro: Microbiology 09/28/24 13:14 Swab (Method) Nasal Screen MRSA/MSSA - Final Radiography Diagnostic Testing: Radiology Impression Shoulder X-Ray 10/12/24 11:10 IMPRESSION: New left reverse shoulder arthroplasty in place. No periprosthetic fracture. Electronically Signed: Jorge Durbin MD at 11:41 EST , Physical Exam Narrative Resting in bedside chair Sling in place to left upper extremity Satting well on room air No acute distress Alert and oriented x 3 Full range of motion, and neurovascularly intact to right upper extremity Intact to radial, median, ulnar nerve distribution left upper extremity Radial pulses bounding left upper extremity Sensation intact to left upper extremity No lower extremity pain, no calf pain Dressing clean dry intact. Assessment & Plan Assessment/Plan (1) Status post reverse total arthroplasty of left shoulder: PLAN: Plan Postop day 1 status post left reverse total shoulder arthroplasty with Dr. Francisco 10/12/2024 1. Patient will maintain sling to left upper extremity nonweightbearing to left upper extremity. Okay for range of motion of the elbow and pendulums 2. White blood cell 9.4. No acute reactive leukocytosis 3. H/H10.5/33.7. Likely acute postoperative anemia. Patient is asymptomatic at this time. Will continue to monitor. 4. Patient using Tylenol 1000 mg every 8 hours, meloxicam 7.5 twice daily and oxycodone every 4-6 as needed for pain control. Continue this postoperatively. 5. Blood clot prevention aspirin 81 mg twice daily x 2 weeks 6. Maintain postop dressing x 7 days. Okay to shower on day 4. No submerging underwater. 7. Discharge pending evaluation from physical therapy and discussion with case management. Orthopedically patient is stable to discharge from our standpoint when able to.
--- NOTE | 2024-10-13 11:29 | DCINST_ITS ---
Discharge Instructions Diet Discharge Diet: No restrictions Activity Discharge Activity: Return to Normal Activity and May Shower (on day 4 ) Weight Bearing Status: No weight bearing (left upper extremity .sling at all times. ) Additional Activity Instructions:: ok for elbow ROM, and pendulums 2-3 times per day left upper extremity Dressing / Incision Call your doctor if your incision/area has: Continuous Slow Oozing, Sudden Increased Bleeding, Increased Pain/ Swelling, Increased Redness, Foul Smelling Discharge and Swelling at the incision site Call your doctor if you observe: Fever of 101 or Higher, Inability to have a bowel movement, Shortness of breath, Dizziness, Chest pain, Calf discomfort and Uncontrolled pain Remove Dressing in: 1 week Cleanse incision/area with: Soap & Water and Keep Dressing Clean & Dry Follow Up Care When: With most orthopedics in 2 weeks as previously scheduled. Test Results: Test results from this visit will be discussed in further detail at your follow- up appointment, if applicable. Discharge Plan Admission Admit Date/Time: 10/12/24 10:44 Attending Provider: Gabo Francisco Primary Care Provider: Lena Jauregui Consulting Providers: Chad Castrejon Discharge Orders/Prescriptions Prescriptions: New acetaminophen 500 mg Tablet 1,000 mg PO Q8 Qty: 180 0RF sennosides-docusate sodium [Stimulant Laxative Plus] 8.6-50 mg Tablet 2 tab PO BID Qty: 14 0RF oxycodone 5 mg Tablet 5 - 10 mg PO .q4-6 prn PRN (Reason: Pain Score 4-10) 7 Days Qty: 30 0RF meloxicam 7.5 mg Tablet 7.5 mg PO BID Qty: 60 0RF aspirin 81 mg Tablet,Delayed Release (Dr/Ec) 81 mg PO BID 14 Days Qty: 28 0RF Continued albuterol sulfate [Ventolin HFA] 90 mcg/actuation HFA aerosol inhaler 2 puff INHALATION Q4H PRN (Reason: shortness of breath or wheezing) finasteride 5 mg tablet 5 mg PO DAILY glucosamine-chondroitin 900 mg tablet 900 mg PO DAILY magnesium oxide 400 mg (241.3 mg magnesium) tablet 400 mg PO BID sucralfate 1 gram tablet 1 g PO BID primidone 250 mg tablet 250 mg PO BID diltiazem HCl 120 mg capsule,extended release 24 hr 120 mg PO QAM buspirone 10 mg tablet 10 mg PO BID propranolol 40 mg tablet 40 mg PO TID sertraline 100 MG tablet 200 mg PO DAILY lansoprazole 30 MG capsule 30 mg PO BID folic acid 1 MG tablet 1 mg PO BIDCM coenzyme Q10 100 MG capsule 100 mg PO DAILY mlydpjot-hvm-AI-lycopen-lutein 1 EACH tablet 1 ea PO DAILY cyanocobalamin (vitamin B-12) 1,000 MCG/ML drops 1,000 mcg PO DAILY vitamins A,C,M-wrlm-iiztyg 1 EACH tablet,delayed release (DR/EC) 2 ea PO DAILY montelukast 10 MG tablet 10 mg PO QHS donepezil 10 mg tablet 10 mg PO QHS tamsulosin 0.4 mg capsule 0.4 mg PO DAILY metoprolol tartrate 50 mg tablet 50 mg PO BID mesalamine 1.2 gram tablet,delayed release (DR/EC) 2.4 g PO BID lisinopril 5 mg tablet 5 mg PO DAILY Qty: 90 3RF Referrals / Follow Up: Lena Jauregui MD [Primary Care Provider] -
--- NOTE | 2024-10-13 11:30 | CASEMGMT ---
RN CM DIVISION [employer] WIRE CHIEF CM?to room to meet with patient for initial transition planning/care coordination assessment. RN CM?introduced self and role at [facility]. Pt voices understanding and consents to assessment?at this time. Pt resting in bed in no distress at this time. Pt is A/O at this time and answers all questions appropriately. Care providers, pharmacy, and demographics verified/updated at this time. Strata:?1 PCP: Dr Jauregui Specialists: Dr Francisco-ortho. Dr Ferreira-urology. [facility]/Cardiology. Dr Manjeet Sinclair-dermatology. Dr Sinclair- ophthalmology Preferred Pharmacy: [facility] [place] Insurance: Marko SMITH Prescription Benefit: yes Living Will/HPOA: Pt does have either and is not interested in completing at this time, stating he is not on good terms w/his daughters and does not no anyone else he could trust at this time. LNOK:2 daughters. He states he has not spoken w/his youngest daughter for about 20 years. He states just as of about 2 months ago, he and his older daughter, Merle, are not on speaking-terms. He states he has a dysfunctional family and states, Even on good terms I would trust either of my daughters. Pt had no LNOK listed or emergency contact listed. He did provide RN KIRK Merle's phone # and states would only want her contacted in the event of an emergency. Living Arrangements: Lives alone in one-story home w/basement and 2-3 steps to enter. Prior to surgery, pt was independent w/ADL's and IADL's. Transportation:Pt drove prior to surgery. DME:States has the following DME: shower chair. Pt also has a cane and walker available. HHC/SNF: No hx of either. Discussed discharge planning. Pt states he does not feel safe discharging home, stating This has been the most unsteady I think I have ever been since surgery and he states he does not feel like he could manage home alone. Questions answered re: SNF and RU. Discussed [facility]'s [facility] [place] In-patient requirements for SNF benefits. Pt states he prefers staying @ [facility], in either [facility] TCU or RU, and declines wanting list of other SNF or RU options at this time, unless neither of them can accept him. Lakisha WAGNER, made aware. PLAN: SNF vs RU Jose MICHAEL RN CM
--- NOTE | 2024-10-13 11:40 | CASEMGMT ---
Met with patient to complete JETER form. JETER form explained to patient who voiced understanding and signed form. Original form placed in pt?s chart and copy provided to patient. Tamika Wang, Discharge Planning Asst
--- NOTE | 2024-10-13 12:48 | CASEMGMT ---
Social Work- SW met with pt to discuss d/c preferences. Pt would like referral to [facility]. Pt declines list of providers d/t knowing [facility]. SW completed referral. SW remains available to follow. NATALIA Lagos
--- NOTE | 2024-10-13 13:43 | CASEMGMT ---
Discharge Planning A list of?RU providers including quality and resource use data and consistent with the patient's preferred geographic region, medical needs, and insurance network was created in [facility] Guide.? This list was provided to the SW. Tamika Wang Discharge Planning Asst.
[2024-10-13] MEDS: Propranolol 40 MG Tablet PO ×2 (15:24→21:48)
--- NOTE | 2024-10-13 16:36 | CASEMGMT ---
Social Work- SW met with pt to discuss RU declination. A list of SNF providers including quality and resource use data and consistent with the patient?s preferred geographic region, medical needs, and insurance network were provided from the [facility] Guide. Pt chose [facility]. SW completed referral. SW will continue to follow. NATALIA Lagos
[2024-10-13] MEDS: Donepezil HCl 10 MG Tablet PO (21:47)
[2024-10-13] MEDS: Montelukast 10 MG Tablet PO (21:49)
[2024-10-14] VITALS (7 sets, daily range): BP systolic 115–130; BP diastolic 54–70; PULSE 62–80; RESP 16–18; TEMP 36.4–37; O2SAT 95–98; BMI 28.9
[2024-10-14] MEDS: Acetaminophen 500 MG Tablet 1000 MG PO ×3 (06:23→21:46)
[2024-10-14] MEDS: Sucralfate 1 GM Tablet PO ×2 (06:23→14:37)
[2024-10-14] MEDS: Propranolol 40 MG Tablet PO ×3 (06:23→21:44)
[2024-10-14] MEDS: Senna/Docusate Sodium 1 Tablet 2 TABLET PO ×2 (08:46→21:46)
[2024-10-14] MEDS: Meloxicam 7.5 MG Tablet PO ×2 (08:47→21:45)
[2024-10-14] MEDS: Aspirin E.C. 81 MG Tablet PO (08:47)
[2024-10-14] MEDS: Magnesium Chloride 64 MG Delay Rel.Tablet 128 MG PO ×2 (08:47→21:45)
[2024-10-14] MEDS: Primidone 250 MG Tablet PO ×2 (08:47→21:46)
[2024-10-14] MEDS: Finasteride 5 MG Tablet PO (08:48)
[2024-10-14] MEDS: Lansoprazole 15 MG Capsule.DR 30 MG PO ×2 (08:48→21:44)
[2024-10-14] MEDS: Metoprolol Tartrate 50 MG Tablet PO ×2 (08:49→21:45)
[2024-10-14] MEDS: Mesalamine 1.2 GM Tablet 2.4 GM PO ×2 (08:49→21:45)
[2024-10-14] MEDS: Tamsulosin HCl 0.4 MG Capsule PO (08:50)
[2024-10-14] MEDS: Sertraline 100 MG Tablet 200 MG PO (08:50)
[2024-10-14] MEDS: Folic Acid 1 MG Tablet PO ×2 (08:53→14:37)
--- NOTE | 2024-10-14 10:34 | CASEMGMT ---
Social Work [facility] is currently reviewing case. SW will await determination of acceptance. NATALIA Escamilla
--- NOTE | 2024-10-14 12:03 | PCM.PN.ORT ---
Subjective Subjective Patient seen and examined. Reporting some constipation postoperatively but states he had a small bowel movement this morning. He is passing gas. Denies any fevers, chills, nausea or vomiting, chest pain or shortness of breath. Pain controlled with current pain regimen. Objective Data Objective Data Vital Signs: Vital Signs Temp Pulse Resp BP Pulse Ox O2 Del Method O2 Flow Rate 97.8 F 64 18 120/58 L 96 Room Air 3 10/14/24 10:34 10/14/24 10:34 10/14/24 10:34 10/14/24 10:34 10/14/24 10:34 10/14/24 10:34 10/12/24 12:00 Oxygen Flow Rate (L/min) 3 Oxygen Delivery Method Room Air Weight: 207 lb 3.752 oz Body Mass Index (BMI) 28.9 Intake & Output: Intake and Output for Last 24 Hours 10/12/24 10/13/24 10/14/24 23:59 23:59 23:59 Intake Total 3482 / 3482 520 / 770 250 / 250 Output Total 800 / 925 125 / 125 Balance 3482 / 3482 -280 / -155 125 / 125 Lab / Micro Data 10/13/24 05:26 10/13/24 05:26 Micro: Microbiology 09/28/24 13:14 Swab (Method) Nasal Screen MRSA/MSSA - Final Physical Exam Narrative General - A&Ox3, NAD. VSS/AF. Left upper Extremity - SILT & motor intact in radial, ulnar, musculocutaneous, axillary, and median nerve distributions. Radial, ulnar pulses 2+. Compartments soft and compressible. BCR in finger tips. Incisional dressing C/D/I. Calves are soft nontender bilaterally Assessment & Plan Assessment/Plan (1) Status post reverse total arthroplasty of left shoulder: PLAN: POD# 2 s/p left RSA - Patient doing well. Awaiting placement due to balance issues and lack of help at home. Stable for discharge when final disposition is arranged. - Pain control -scheduled Tylenol, meloxicam. As needed oxycodone - PT/OT - DVT PPX -Multimodal with SCDs, aspirin, early mobilization - Case management - D/C planning
[2024-10-14] MEDS: busPIRone 5 MG Tablet 10 MG PO ×2 (14:40→21:43)
[2024-10-14] MEDS: Donepezil HCl 10 MG Tablet PO (21:43)
[2024-10-14] MEDS: Montelukast 10 MG Tablet PO (21:46)
[2024-10-15 05:25] VITALS: BP 139/72; PULSE 65; RESP 18; TEMP 36.6; O2SAT 96
[2024-10-15] MEDS: Sucralfate 1 GM Tablet PO ×2 (05:27→15:20)
[2024-10-15] MEDS: Propranolol 40 MG Tablet PO ×3 (05:27→20:57)
[2024-10-15] MEDS: Acetaminophen 500 MG Tablet 1000 MG PO ×3 (05:27→20:59)
[2024-10-15 10:08] VITALS: BP 119/55; PULSE 72; RESP 18; TEMP 36.6; O2SAT 96
[2024-10-15 10:26] VITALS: PULSE 72
[2024-10-15] MEDS: Finasteride 5 MG Tablet PO (10:26)
[2024-10-15] MEDS: Folic Acid 1 MG Tablet PO ×2 (10:26→15:19)
[2024-10-15] MEDS: Aspirin E.C. 81 MG Tablet PO (10:26)
[2024-10-15] MEDS: Metoprolol Tartrate 50 MG Tablet PO ×2 (10:26→20:58)
[2024-10-15] MEDS: Tamsulosin HCl 0.4 MG Capsule PO (10:27)
[2024-10-15] MEDS: busPIRone 5 MG Tablet 10 MG PO ×2 (10:27→20:57)
[2024-10-15] MEDS: Primidone 250 MG Tablet PO ×2 (10:27→20:58)
[2024-10-15] MEDS: Meloxicam 7.5 MG Tablet PO ×2 (10:28→20:58)
[2024-10-15] MEDS: Mesalamine 1.2 GM Tablet 2.4 GM PO ×2 (10:28→20:57)
[2024-10-15] MEDS: Lansoprazole 15 MG Capsule.DR 30 MG PO ×2 (10:28→20:57)
[2024-10-15] MEDS: Sertraline 100 MG Tablet 200 MG PO (10:28)
[2024-10-15] MEDS: Senna/Docusate Sodium 1 Tablet 2 TABLET PO ×2 (10:28→20:59)
[2024-10-15] MEDS: Magnesium Chloride 64 MG Delay Rel.Tablet 128 MG PO ×2 (10:28→20:58)
--- NOTE | 2024-10-15 13:32 | NURSING ---
Pt c/o mild discomfort, frequency, and incomplete emptying of bladder. Bladder scan showed >750mL. Straight cath as ordered for 850mL. Pt tolerated well.
[2024-10-15 15:13] VITALS: BP 117/52; PULSE 72; RESP 18; TEMP 36.6; O2SAT 95
--- NOTE | 2024-10-15 16:44 | PCM.PN.ORT ---
Subjective Subjective Patient seen and examined. Pain controlled with current pain regimen. Denies any fevers, chills, nausea vomiting, chest pain or shortness of breath. Required straight cath x 2. History of BPH, receiving normal home dose of Flomax. Objective Data Objective Data Vital Signs: Vital Signs Temp Pulse Resp BP Pulse Ox O2 Del Method O2 Flow Rate 97.8 F 72 18 117/52 L 95 Room Air 3 10/15/24 15:13 10/15/24 15:13 10/15/24 15:13 10/15/24 15:13 10/15/24 15:13 10/15/24 15:13 10/12/24 12:00 Oxygen Flow Rate (L/min) 3 Oxygen Delivery Method Room Air Weight: 207 lb 3.752 oz Body Mass Index (BMI) 28.9 Intake & Output: Intake and Output for Last 24 Hours 10/13/24 10/14/24 10/15/24 23:59 23:59 23:59 Intake Total 520 / 770 850 / 1250 800 / 800 Output Total 800 / 925 125 / 125 Balance -280 / -155 725 / 1125 800 / 800 Lab / Micro Data 10/13/24 05:26 10/13/24 05:26 Micro: Microbiology 09/28/24 13:14 Swab (Method) Nasal Screen MRSA/MSSA - Final Physical Exam Narrative General - A&Ox3, NAD. VSS/AF. Left upper Extremity - SILT & motor intact in radial, ulnar, musculocutaneous, axillary, and median nerve distributions. Radial, ulnar pulses 2+. Compartments soft and compressible. BCR in finger tips. Incisional dressing C/D/I. Calves are soft nontender bilaterally Assessment & Plan Assessment/Plan (1) Status post reverse total arthroplasty of left shoulder: PLAN: POD#3 s/p left RSA -Overall patient is doing well. Continue as needed straight catheterization, consider indwelling catheter. Continue Flomax. Awaiting placement due to balance issues and lack of help at home. Stable for discharge when final disposition is arranged. - Pain control -scheduled Tylenol, meloxicam. As needed oxycodone - PT/OT - DVT PPX -Multimodal with SCDs, aspirin, early mobilization - Case management - D/C planning
[2024-10-15 20:53] VITALS: BP 121/65; PULSE 65; RESP 18; TEMP 36.5; O2SAT 95
[2024-10-15] MEDS: Donepezil HCl 10 MG Tablet PO (20:57)
[2024-10-15 20:58] VITALS: BP 121/65; PULSE 65
[2024-10-15] MEDS: Montelukast 10 MG Tablet PO (20:59)
[2024-10-16 06:00] VITALS: BP 123/55; PULSE 63; RESP 18; TEMP 36.6; O2SAT 94
[2024-10-16] MEDS: Propranolol 40 MG Tablet PO (06:11)
[2024-10-16] MEDS: Acetaminophen 500 MG Tablet 1000 MG PO ×3 (06:11→20:47)
[2024-10-16] MEDS: Folic Acid 1 MG Tablet PO ×2 (06:12→18:38)
[2024-10-16] MEDS: Sucralfate 1 GM Tablet PO ×2 (06:12→18:38)
[2024-10-16] MEDS: Aspirin E.C. 81 MG Tablet PO (06:12)
[2024-10-16 09:46] VITALS: BP 115/62; PULSE 65; RESP 17; TEMP 36.8; O2SAT 96
[2024-10-16] MEDS: Primidone 250 MG Tablet PO ×2 (11:03→20:45)
[2024-10-16] MEDS: Sertraline 100 MG Tablet 200 MG PO (11:03)
[2024-10-16] MEDS: Finasteride 5 MG Tablet PO (11:03)
[2024-10-16] MEDS: busPIRone 5 MG Tablet 10 MG PO ×2 (11:03→20:44)
[2024-10-16] MEDS: Lansoprazole 15 MG Capsule.DR 30 MG PO ×2 (11:04→20:45)
[2024-10-16] MEDS: Senna/Docusate Sodium 1 Tablet 2 TABLET PO (11:04)
[2024-10-16 11:05] VITALS: PULSE 65
[2024-10-16] MEDS: Metoprolol Tartrate 50 MG Tablet PO ×2 (11:05→20:45)
[2024-10-16] MEDS: Magnesium Chloride 64 MG Delay Rel.Tablet 128 MG PO ×2 (11:05→20:46)
[2024-10-16] MEDS: Mesalamine 1.2 GM Tablet 2.4 GM PO ×2 (11:06→20:44)
[2024-10-16] MEDS: Meloxicam 7.5 MG Tablet PO ×2 (11:07→20:45)
[2024-10-16] MEDS: Tamsulosin HCl 0.4 MG Capsule PO (14:41)
[2024-10-16 14:45] VITALS: BP 120/65; PULSE 68; RESP 17; TEMP 36.4; O2SAT 94
--- NOTE | 2024-10-16 14:46 | CASEMGMT ---
Addendum entered by Lakisha Burgess 10/16/24 15:42: Pt was accepted at [facility]. Pt is agreeable to [facility] being [facility]. [facility] to send to medical review; referral for [facility] is under review as well. [facility] remains available to follow. NATALIA Lagos Original Note: Social Work- SW met with pt to discuss pt referral to [facility] accepted, but reports that they are not able to state when they will have a bed. Pt selected [facility] and [facility] as alternate choices. DCA advised. KRISTY remains available to follow. NATALIA Lagos
--- NOTE | 2024-10-16 14:54 | CASEMGMT ---
Addendum entered by Tamika Wang 10/16/24 16:20: Both units accepted. [facility]. Tamika Wang DC Planning Asst. Original Note: Discharge Planning Referral [facility] to [facility]. Tamika Wang DC Planning Asst.
--- NOTE | 2024-10-16 15:03 | PCM.PN.ORT ---
Subjective Subjective Patient is s/p left reverse total shoulder arthroplasty with Dr. Francisco 10/12/2024. Patient was found ambulating the halls with physical therapy and Occupational Therapy upon first examination today. Rates no significant pain. States taking Tylenol and oxycodone as needed and ice help to relieve pain. Patient has been up with therapy. Walking with the assit of a single arm walker. Sling in place to left upper extremity at all times.. Afebrile, no chest pain, shortness of breath, negative calf pain/ erythema, and no other signs of DVT. Patient continues with indwelling catheter after having to be straight cathed x 2 over the weekend. He continues with Flomax. Objective Data Objective Data Vital Signs: Vital Signs Temp Pulse Resp BP Pulse Ox O2 Del Method O2 Flow Rate 97.6 F L 68 17 120/65 94 Room Air 3 10/16/24 14:45 10/16/24 14:45 10/16/24 14:45 10/16/24 14:45 10/16/24 14:45 10/16/24 14:45 10/12/24 12:00 Oxygen Flow Rate (L/min) 3 Oxygen Delivery Method Room Air Weight: 94 kg Body Mass Index (BMI) 28.9 Intake & Output: Intake and Output for Last 24 Hours 10/14/24 10/15/24 10/16/24 23:59 23:59 23:59 Intake Total 850 / 1250 1200 / 1700 1720 / 1720 Output Total 125 / 125 100 / 550 1630 / 1630 Balance 725 / 1125 1100 / 1150 90 / 90 Lab / Micro Data 10/13/24 05:26 10/13/24 05:26 Micro: Microbiology 09/28/24 13:14 Swab (Method) Nasal Screen MRSA/MSSA - Final Physical Exam Narrative Walking around the hallways with physical therapy and Occupational Therapy. He is assisted due to balance issues however ambulating well. Sling in place to left upper extremity Satting well on room air No acute distress Alert and oriented x 3 Full range of motion, and neurovascularly intact to right upper extremity Intact to radial, median, ulnar nerve distribution left upper extremity Radial pulses bounding left upper extremity Sensation intact to left upper extremity No lower extremity pain, no calf pain Dressing clean dry intact. Assessment & Plan Assessment/Plan (1) Status post reverse total arthroplasty of left shoulder: PLAN: Postop day 4 status post left reverse total shoulder arthroplasty with Dr. Francisco 10/12/2024 1. Patient will maintain sling to left upper extremity nonweightbearing to left upper extremity. Okay for range of motion of the elbow and pendulums. Continue with PT/OT for balance training and coordination with a single extremity walker. 2. labs stable since 10/13/24. no new labs to review today. 3. Patient using Tylenol 1000 mg every 8 hours, meloxicam 7.5 twice daily and oxycodone every 4-6 as needed for pain control. Continue this postoperatively. 4. Blood clot prevention aspirin 81 mg twice daily x 2 weeks 5. Maintain postop dressing x 7 days. Okay to shower on day 4. No submerging underwater. 6. maintain gary catheter at this time. continue flomax. 7. Discharge pending. inpatient rehab vs SNF due to balance issues, and no help at home. pending insurance approval and facility availability. Orthopedically patient is stable to discharge from our standpoint when able to.
[2024-10-16 20:45] VITALS: PULSE 63
[2024-10-16] MEDS: Montelukast 10 MG Tablet PO (20:45)
[2024-10-16] MEDS: Donepezil HCl 10 MG Tablet PO (20:45)
[2024-10-16 20:53] VITALS: BP 111/51; PULSE 63; RESP 16; TEMP 36.8; O2SAT 98
[2024-10-17] MEDS: Sucralfate 1 GM Tablet PO (04:57)
[2024-10-17] MEDS: Acetaminophen 500 MG Tablet 1000 MG PO ×2 (04:58→14:51)
[2024-10-17] MEDS: Propranolol 40 MG Tablet PO ×2 (04:58→14:52)
[2024-10-17 05:03] VITALS: BP 128/70; PULSE 66; RESP 16; TEMP 36.1; O2SAT 95
[2024-10-17 09:16] VITALS: BP 115/55; PULSE 60; RESP 18; TEMP 36.4; O2SAT 97
[2024-10-17] MEDS: busPIRone 5 MG Tablet 10 MG PO (10:16)
[2024-10-17] MEDS: Magnesium Chloride 64 MG Delay Rel.Tablet 128 MG PO (10:17)
[2024-10-17] MEDS: Sertraline 100 MG Tablet 200 MG PO (10:18)
[2024-10-17] MEDS: Aspirin E.C. 81 MG Tablet PO (10:19)
[2024-10-17] MEDS: Finasteride 5 MG Tablet PO (10:19)
[2024-10-17] MEDS: Folic Acid 1 MG Tablet PO (10:19)
[2024-10-17] MEDS: Meloxicam 7.5 MG Tablet PO (10:19)
[2024-10-17] MEDS: Tamsulosin HCl 0.4 MG Capsule PO (10:19)
[2024-10-17 10:20] VITALS: PULSE 60
[2024-10-17] MEDS: Primidone 250 MG Tablet PO (10:20)
[2024-10-17] MEDS: Metoprolol Tartrate 50 MG Tablet PO (10:20)
[2024-10-17] MEDS: Lansoprazole 15 MG Capsule.DR 30 MG PO (10:20)
[2024-10-17] MEDS: Mesalamine 1.2 GM Tablet 2.4 GM PO (10:21)
--- NOTE | 2024-10-17 11:49 | PCM.DC.SUM ---
Providers Date of Admission: 10/12/24 Primary Care Physician: Dr. Lena Jauregui MD Reason For Visit: Total Shoulder Replacement, Reverse Diagnosis Discharge Diagnosis (1) Status post reverse total arthroplasty of left shoulder: Status: Acute Code(s): Z96.612 - Presence of left artificial shoulder joint Plan: Postop day 6 status post left reverse total shoulder arthroplasty with Dr. Francisco 10/12/2024 1. Patient will maintain sling to left upper extremity nonweightbearing to left upper extremity. Okay for range of motion of the elbow and pendulums. Continue with PT/OT for balance training and coordination with a single extremity walker. 2. labs stable since 10/13/24. no new labs to review today. 3. Patient using Tylenol 1000 mg every 8 hours, meloxicam 7.5 twice daily and oxycodone every 4-6 as needed for pain control. Continue this postoperatively. 4. Blood clot prevention aspirin 81 mg twice daily x 2 weeks post op 5. Maintain postop dressing x 7 days post op. ok to remove after. Okay to shower on day 4. No submerging underwater. 6. maintain gray catheter at this time. continue flomax. 7. Discharge pending. inpatient rehab vs SNF due to balance issues, and no help at home. pending insurance approval and facility availability. Orthopedically patient is stable to discharge from our standpoint when able to. Medications at Discharge Home Medications coenzyme Q10 100 mg capsule 100 mg PO DAILY supplement 08/30/15 cyanocobalamin (vitamin B-12) 1,000 mcg/mL oral drops 1,000 mcg PO DAILY supplement 08/30/15 folic acid 1 mg tablet 1 mg PO BIDCM supplement 08/30/15 lansoprazole 30 mg capsule,delayed release 30 mg PO BID gerd 08/30/15 nhliakey-osz-oymaw acid 0.4 mg-lycopene 300 mcg-lutein 250 mcg tablet 1 ea PO DAILY supplement 08/30/15 sertraline 100 mg tablet 200 mg PO DAILY depression 08/30/15 vit A 7,160 unit-C 113 mg-E 100 aupt-pgvg-yeholk tablet,delayed rel. 2 ea PO DAILY eye supplement 08/30/15 montelukast 10 mg tablet 10 mg PO QHS allergies 10/28/16 albuterol sulfate 90 mcg/actuation aerosol inhaler (Ventolin HFA) 2 puff inhalation Q4H PRN shortness of breath or wheezing 05/27/20 antiarthritic combination no.2 900 mg tablet (glucosamine-chondroitin) 900 mg PO DAILY 05/27/20 finasteride 5 mg tablet 5 mg PO DAILY 05/27/20 magnesium oxide 400 mg (241.3 mg magnesium) tablet 400 mg PO BID 05/27/20 sucralfate 1 gram tablet 1 g PO BID 05/27/20 diltiazem HCl 120 mg capsule,24 hr,extended release 120 mg PO QAM 11/25/20 lisinopril 5 mg tablet 5 mg PO DAILY #90 tabs 08/05/21 buspirone 10 mg tablet 10 mg PO BID 08/25/21 primidone 250 mg tablet 250 mg PO BID 03/20/22 propranolol 40 mg tablet 40 mg PO TID 03/20/22 donepezil 10 mg tablet 10 mg PO QHS 06/13/24 metoprolol tartrate 50 mg tablet 50 mg PO BID 06/13/24 tamsulosin 0.4 mg capsule 0.4 mg PO DAILY 06/13/24 mesalamine 1.2 gram tablet,delayed release 2.4 g PO BID 09/13/24 acetaminophen 500 mg tablet 1,000 mg (2 x 500 mg) PO Q8 #180 tabs 10/13/24 aspirin 81 mg tablet,delayed release 81 mg PO BID 14 days #28 tabs 10/13/24 meloxicam 7.5 mg tablet 7.5 mg PO BID #60 tabs 10/13/24 oxycodone 5 mg tablet 5 - 10 mg (1 - 2 x 5 mg) PO .q4-6 prn PRN Pain Score 4-10 7 days #30 tabs 10/13/24 sennosides 8.6 mg-docusate sodium 50 mg tablet (Stimulant Laxative Plus) 2 tab PO BID #14 tabs 10/13/24 acetaminophen 500 mg capsule 1,000 mg (2 x 500 mg) PO Q8 #180 caps 10/17/24 aspirin 81 mg chewable tablet 81 mg PO BID 8 days #16 tabs 10/17/24 oxycodone 5 mg tablet 5 mg PO .q4-6hr prn PRN pain 7 days #20 tabs 10/17/24 sennosides 8.6 mg tablet (senna) 8.6 mg PO DAILY #14 tabs 10/17/24 Hospital Course Operations - (Left reverse total shoulder arthroplasty) Summary of Care Provided Hospital Course: Patient is s/p left reverse total shoulder arthroplasty with Dr. Francisco 10/12/2024. Patient resting comfortably in bedside chair.. Rates no significant pain. States taking Tylenol and oxycodone as needed and ice help to relieve pain. Patient has been up with therapy. Walking with the assit of a single arm walker. Sling in place to left upper extremity at all times. Afebrile, no chest pain, shortness of breath, negative calf pain/ erythema, and no other signs of DVT. Patient continues with indwelling catheter after having to be straight cathed x 2 over the weekend. He continues with Flomax. Physical Exam Narrative Sling in place to left upper extremity Satting well on room air No acute distress Alert and oriented x 3 Full range of motion, and neurovascularly intact to right upper extremity Intact to radial, median, ulnar nerve distribution left upper extremity Radial pulses bounding left upper extremity Sensation intact to left upper extremity No lower extremity pain, no calf pain Dressing clean dry intact. Weight / BMI Weight Weight: 94 kg Body Mass Index (BMI) 28.9 ABG / Lab / Microbiology Data 10/13/24 05:26 10/13/24 05:26 Microbiology: Microbiology 09/28/24 13:14 Swab (Method) Nasal Screen MRSA/MSSA - Final D/C Instructions Discharge Diet: No restrictions Weight Bearing Status: No weight bearing (left upper extremity .sling at all times. ) Additional Activity Instructions: ok for elbow ROM, and pendulums 2-3 times per day left upper extremity Call your doctor if your incision/area has: Continuous Slow Oozing, Sudden Increased Bleeding, Increased Pain/ Swelling, Increased Redness, Foul Smelling Discharge and Swelling at the incision site Call your doctor if you observe: Fever of 101 or Higher, Inability to have a bowel movement, Shortness of breath, Dizziness, Chest pain, Calf discomfort and Uncontrolled pain Remove Dressing in: 1 week Cleanse incision/area with: Soap & Water and Keep Dressing Clean & Dry DC O2, CPAP, BIPAP Needs Additional Home O2 Discharge instructions: No DC home with Oxygen: No Additional Instructions: Gary Catheter: management / removal per rehab. likely in 1 week. follow with pcp if needed. When: With most orthopedics in 2 weeks as previously scheduled. Meaningful Use Info Meaningful Use Meaningful Use Diagnoses (Choose all that apply): None applicable Ischemic Stroke Statin Dosing Therapy Reference: STATIN DOSE THERAPY REFERENCE: * Patients > 75 years receive moderate or high dose statin therapy. * Patients 75 years or YOUNGER should receive HIGH intensity statin dose unless contraindicated. You will be required to document reason for non-treatment if statin daily dose does not meet guidelines. HIGH DOSE STATIN THERAPY DAILY Atorvastatin > than or = to 40 mg Rosuvastatin > than or = to 20 mg Amlodipine + Atorvastatin > than or = to 2.5/40 mg Ezetimibe + Simvastatin 10/80 mg Simvastatin 80mg Discharge Plan Admission Admit Date/Time: 10/12/24 10:44 Attending Provider: Gabo Francisco Primary Care Provider: Lena Jauregui Consulting Providers: Chad Castrejon Discharge Orders/Prescriptions Prescriptions: New acetaminophen 500 mg Tablet 1,000 mg PO Q8 Qty: 180 0RF sennosides-docusate sodium [Stimulant Laxative Plus] 8.6-50 mg Tablet 2 tab PO BID Qty: 14 0RF oxycodone 5 mg Tablet 5 - 10 mg PO .q4-6 prn PRN (Reason: Pain Score 4-10) 7 Days Qty: 30 0RF meloxicam 7.5 mg Tablet 7.5 mg PO BID Qty: 60 0RF aspirin 81 mg Tablet,Delayed Release (Dr/Ec) 81 mg PO BID 14 Days Qty: 28 0RF acetaminophen 500 mg capsule 1,000 mg PO Q8 Qty: 180 0RF oxycodone 5 mg tablet 5 mg PO .q4-6hr prn PRN (Reason: pain) 7 Days Qty: 20 0RF sennosides [senna] 8.6 mg tablet 8.6 mg PO DAILY Qty: 14 0RF aspirin 81 mg tablet,chewable 81 mg PO BID 8 Days Qty: 16 0RF Continued albuterol sulfate [Ventolin HFA] 90 mcg/actuation HFA aerosol inhaler 2 puff INHALATION Q4H PRN (Reason: shortness of breath or wheezing) finasteride 5 mg tablet 5 mg PO DAILY glucosamine-chondroitin 900 mg tablet 900 mg PO DAILY magnesium oxide 400 mg (241.3 mg magnesium) tablet 400 mg PO BID sucralfate 1 gram tablet 1 g PO BID primidone 250 mg tablet 250 mg PO BID diltiazem HCl 120 mg capsule,extended release 24 hr 120 mg PO QAM buspirone 10 mg tablet 10 mg PO BID propranolol 40 mg tablet 40 mg PO TID sertraline 100 MG tablet 200 mg PO DAILY lansoprazole 30 MG capsule 30 mg PO BID folic acid 1 MG tablet 1 mg PO BIDCM coenzyme Q10 100 MG capsule 100 mg PO DAILY djcbeuwl-jtw-KR-lycopen-lutein 1 EACH tablet 1 ea PO DAILY cyanocobalamin (vitamin B-12) 1,000 MCG/ML drops 1,000 mcg PO DAILY vitamins A,C,H-hxjk-tkmekv 1 EACH tablet,delayed release (DR/EC) 2 ea PO DAILY montelukast 10 MG tablet 10 mg PO QHS donepezil 10 mg tablet 10 mg PO QHS tamsulosin 0.4 mg capsule 0.4 mg PO DAILY metoprolol tartrate 50 mg tablet 50 mg PO BID mesalamine 1.2 gram tablet,delayed release (DR/EC) 2.4 g PO BID lisinopril 5 mg tablet 5 mg PO DAILY Qty: 90 3RF Referrals / Follow Up: Lena Jauregui MD [Primary Care Provider] - Disposition Disposition (needs filled in before D/C Order can be placed): Inpatient Rehab Unit/Facility
--- NOTE | 2024-10-17 11:53 | CASEMGMT ---
Social Work- Pt selected [facility] and has acceptance. Physician advised. NATALIA Lagos
--- NOTE | 2024-10-17 13:46 | CASEMGMT ---
Discharge Planning Discharge orders, signed med list, and transport time sent to [facility] via [facility]. Physicians will transport patient by wheelchair between 3-3:30p. Nursing, SW, and patient updated. Tamika Wang DC Planning Asst.
--- NOTE | 2024-10-17 14:09 | CASEMGMT ---
Social Work- Pt received acceptance at [facility]. Physician notified and feels pt is medically ready for discharge. Bedside nurse notified. TJ advised. NATALIA Lagos
[2024-10-17 15:14] VITALS: BP 120/57; PULSE 70; RESP 18; TEMP 36.6; O2SAT 97
--- NOTE | 2024-10-17 15:33 | NURSING ---
Report given to Susan VIDALES at [facility] at this time.
== END 2024-10-17 15:15 ==
LOC: SDC 14:42 → MS3 14:42
PROVIDERS: Anesthesiology; Admitting Provider Student in an Organized Health Care Education/Training Program; PCP Internal Medicine; Referring Provider Student in an Organized Health Care Education/Training Program; Visit Provider Student in an Organized Health Care Education/Training Program
PROC: (CPT 23472; principal; 2024-10-12 09:00)
DX: M13.812 Other specified arthritis, left shoulder (principal); K50.90 Crohn's disease, unspecified, without complications; F03.90 Unspecified dementia, unspecified severity, without behavioral disturbance, psychotic disturbance, mood disturbance, and anxiety; R25.1 Tremor, unspecified; I10 Essential (primary) hypertension; H35.30 Unspecified macular degeneration; Z87.891 Personal history of nicotine dependence; Z79.899 Other long term (current) drug therapy; N40.0 Benign prostatic hyperplasia without lower urinary tract symptoms; F32.A Depression, unspecified; J45.909 Unspecified asthma, uncomplicated; K21.9 Gastro-esophageal reflux disease without esophagitis
CPT/HCPCS: 23472; 01638; 36415; 51702; 73030; 80048; 82040; 82962; 83735; 85025; 85027; 87077; 87081; 88305; 88311; 93005; 94668; 96374; 96376; 97110; 97116; 97163; 97166; 97530; 97535; 99221; C1713; C1776; J7120; A4216; G0378; J2405; J3475

== ENCOUNTER → 2025-08-03 | Outpatient (CLI) | payer MEDICARE, BC, SELFPAY ==
--- NOTE | 2025-08-03 08:25 | RAD_ITS ---
EXAM: Esophagram barium swallow. CLINICAL HISTORY: Persistent cough. Dysphagia for solids. COMPARISON: None TECHNIQUE: The patient ingested barium. Fluoroscopic imaging was performed. Dose report: 40 seconds of fluoroscopy. Radiation dose: 8.1 mGy. The esophagus is unremarkable. No evidence of gastroesophageal reflux. No obstruction to the flow of contrast. The patient ingested a 12 mm tablet the barium. There is transient holdup at the gastroesophageal junction although it FINDINGS: Unremarkable air-contrast esophagram barium swallow. RAD/Esophagus Dual Contrast IMPRESSION: Unremarkable air-contrast esophagram barium swallow. Reading Location: [place] [id number]
== END | disposition home or self-care (01) ==
PROVIDERS: PCP Internal Medicine
DX: R13.10 Dysphagia, unspecified (principal)
CPT/HCPCS: 74221

== ENCOUNTER 2025-11-09 07:39 | Day surgery (SDC) | payer MEDICARE, BC, SELFPAY ==
--- NOTE | 2025-10-26 14:47 | PAT.ANESEVAL ---
Pre-Assessment Diagnosis/Proposed Procedure Planned Operative Procedure(s): Cysto,Transurethral Resection Prostate Anesthesia History Anesthesia History - purchasing buyer: Anesthesia History - purchasing buyer Hx Hospitalization No 10/26/25 13:44 Any Problems With Anesthesia [ No 06/14/24 01:06 1 (Initial Baseline)] Any Problems With Anesthesia No 10/26/25 13:44 Cholinesterase deficiency No 10/26/25 13:44 You/Your Family Experience No 10/26/25 13:44 fever (hyperthermia) with Relationship Recent Exposure to Contagious No 10/12/24 07:29 Disease Does patient have nerve No 10/26/25 13:44 stimulator Patient instructed to have device shut off --Does patient have Pacemaker or ICD? When Was Last Pacemaker Check QUESTION #4 FULL TEXT: You/Your Family Experience fever (hyperthermia) with Anesthesia Last Oral Intake Last Oral intake: Last Oral Intake NPO since Meds taken in AM with sips of water? Meds patient instructed to take am of surgery PONV PONV - purchasing buyer: PONV - purchasing buyer Female No 10/26/25 13:44 HX of Motion Sickness Yes 10/26/25 13:44 HX of N/V After Surgery No 10/26/25 13:44 Non-Smoker Yes 10/26/25 13:44 Duration of Surgery greater Yes 10/26/25 13:44 than 60 minutes Number of Risk Factors 3 10/26/25 13:44 PONV Score Moderate Risk 10/26/25 13:44 Height & Weight Height & Weight: Anesthesia: Height & Weight Height 5 ft 11 in 10/12/24 15:06 Respiratory Assessment Respiratory Assessment - purchasing buyer: Respiratory Tract Infection Hx - purchasing buyer Hx Respiratory Tract Infection No 10/26/25 13:44 STOP Sleep Apnea STOP Sleep Apnea - purchasing buyer: STOP Sleep Apnea - purchasing buyer Hx Hypertension Yes: on meds 10/26/25 13:44 Hx Sleep Apnea No 10/26/25 13:44 CPAP BIPAP Do you snore loudly (louder No 10/26/25 13:44 than talking or can be heard Do you often feel tired/ No 10/26/25 13:44 fatigued/ sleepy during daytime? Has anyone observed you stop No 10/26/25 13:44 breathing during sleep? STOP Results Negative 10/26/25 13:44 QUESTION #5 FULL TEXT : Do you snore loudly (louder than talking or can be heard through closed doors)? Tobacco Use History Tobacco Use History - purchasing buyer: Tobacco Use History - purchasing buyer Tobacco Use Non-smoker 08/25/21 16:38 Smoking Status Former smoker 10/26/25 13:44 Hx Tobacco Use No 10/26/25 13:44 Years Smoking Packs Smoked per Day Smoking Cessation Date was No - quit smoking greater 10/26/25 13:44 within the last 15 years than 15 years ago Hx Smoking Cessation Date Hx Smoking Cessation No 10/26/25 13:44 Counseling Hematologic Medial History Hematologic Hx - purchasing buyer: Hematologic Medical Hx - [place] Hx of Blood Transfusion No 10/26/25 13:44 Hx of Transfusion in last 3 No 10/26/25 13:44 Months Date of Last Transfusion (if within last 3 months) Ever experience any problems No 10/26/25 13:44 with transfusion(s)? Specify any problems Hx of Preganancy in last 3 N/A 10/26/25 13:44 Months Nurse Filling Out Transfusion JZOLLINGE 10/26/25 13:44 & Questions: Date: 10/26/25 10/26/25 13:44 Time: 13:46 10/26/25 13:44 Patient unable to answer at this time (ie. confused, unrespo /Reproduction History /Reproductive History - purchasing buyer: /Reproductive Hx- purchasing buyer Hx Now No 10/26/25 13:44 Gestational Age (in weeks): EDC: Hx Hx Para Hx Section SAB No 10/26/25 13:44 Does the father of the baby or his family experience fever w Father of the baby Malignant Hypertension history comment [facility] Medical History Wears glasses Alcohol use Arthritis Kidney stones Back pain Injury of head and neck Difficulty swallowing History of Crohn's disease History of diverticulitis Gastric reflux Former smoker Asthma Hoarseness Chronic cough History of pain when walking History of edema History of stress test History of echocardiogram Hypertension Cardiology follow-up encounter History of atrial fibrillation Abnormal cardiac enzyme level SVT (supraventricular tachycardia) Acute bronchitis Community acquired MRSA infection Dementia Depression Osteoarthritis Crohns disease BPH (benign prostatic hyperplasia) Benign essential hypertension Home Medications ?Medication ?Instructions ?Recorded ?Last Taken ?Type coenzyme Q10 100 mg capsule 100 mg PO DAILY supplement 08/30/15 10/11/24 History cyanocobalamin (vitamin B-12) 1,000 mcg PO DAILY supplement 08/30/15 10/11/24 History 1,000 mcg/mL oral drops folic acid 1 mg tablet 1 mg PO BIDCM supplement 08/30/15 10/11/24 History lansoprazole 30 mg capsule,delayed 30 mg PO BID gerd 08/30/15 10/11/24 History release coodjifn-cfo-kjvyc acid 0.4 1 ea PO DAILY supplement 08/30/15 10/11/24 History mg-lycopene 300 mcg-lutein 250 mcg tablet sertraline 100 mg tablet 200 mg PO DAILY depression 08/30/15 10/11/24 History vit A 7,160 unit-C 113 mg-E 100 2 ea PO DAILY eye supplement 08/30/15 10/11/24 History czkp-yika-nlwfdh tablet,delayed rel. antiarthritic combination no.2 900 900 mg PO DAILY supplement 05/27/20 10/11/24 History mg tablet (glucosamine-chondroitin) finasteride 5 mg tablet 5 mg PO DAILY bladder 05/27/20 10/11/24 History magnesium oxide 400 mg (241.3 mg 400 mg PO .qd supplement 05/27/20 10/11/24 History magnesium) tablet sucralfate 1 gram tablet 1 g PO BID stomach 05/27/20 10/11/24 History lisinopril 5 mg tablet 5 mg PO DAILY bp #90 tabs 08/05/21 Unknown Rx buspirone 10 mg tablet 10 mg PO BID anxiety 08/25/21 10/11/24 History primidone 250 mg tablet 250 mg PO BID not sure why he 03/20/22 10/11/24 History takes it propranolol 40 mg tablet 40 mg PO TID bp 03/20/22 10/11/24 History donepezil 10 mg tablet 10 mg PO QHS memory 06/13/24 10/11/24 History metoprolol tartrate 50 mg tablet 50 mg PO BID bp 06/13/24 10/11/24 History tamsulosin 0.4 mg capsule 0.4 mg PO DAILY prostate 06/13/24 10/11/24 History meloxicam 7.5 mg tablet 7.5 mg PO BID pain #60 tabs 10/13/24 Unknown Rx acetaminophen 500 mg capsule 1,000 mg PO Q8 PRN fever or pain 10/26/25 Unknown History Allergy/AdvReac Type Severity Reaction Status Date / Time atorvastatin AdvReac Unknown Verified 10/26/25 13:27 Penicillins AdvReac Unknown Verified 10/26/25 13:27 Surgical History Hx of sinus surgery Hx of umbilical hernia repair History of cholecystectomy History of tonsillectomy History of foot surgery History of total knee arthroplasty Social History Smoking Status: Former smoker how long ago did patient quit smokins alcohol intake: never substance use type: does not use caffeine: No Audit: Pertinent Findings Pertinent Findings EKG Perinent findings: 06/03/2019. Supraventricular tachycardia. 174 bpm inferior infarct age undetermined. Stress test pertinent findings: 07/18/2019. Negative EF 72%. Echo (EF%) pertinent findings: 06/02/2019. EF 65% pulmonary artery pressure 31. Consult pertinent findings: Cardiology 03/20/2022. SVT. Resolved. Continue diltiazem. Chronic hypertension. Recommendation Anesthesia Recommendation Anesthesia recommendation: OPTIMIZED for anesthesia
--- NOTE | 2025-11-01 10:54 | EKG12_ITS ---
Test Reason : PREOP Blood Pressure : */* mmHG Vent. Rate : 64 BPM Atrial Rate : 64 BPM P-R Int : 172 ms QRS Dur : 76 ms QT Int : 398 ms P-R-T Axes : 1 -52 7 degrees QTcB Int : 410 ms Normal sinus rhythm Left axis deviation Possible Lateral infarct (cited on or before 01-Jun-2019) Inferior infarct , age undetermined Abnormal ECG Confirmed by LENI GUERRA, WHIT ([id number]), science editor JOLENE ASHER ([id number]) on 11/02/2025 9:18:29 AM Referred By: Tyler Dale Confirmed By: WHIT FARRAR MD
--- NOTE | 2025-11-01 15:56 | PAT.ANESEVAL ---
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 When Was Last Pacemaker Check QUESTION #4 FULL TEXT: You/Your Family Experience fever (hyperthermia) with Anesthesia Last Oral Intake Last Oral intake: Last Oral Intake NPO since Meds taken in AM with sips of water? 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 mechanic Female No 10/26/25 13:44 HX of Motion Sickness Yes 10/26/25 13:44 HX of N/V After Surgery No 10/26/25 13:44 Non-Smoker Yes 10/26/25 13:44 Duration of Surgery greater Yes 10/26/25 13:44 than 60 minutes Number of Risk Factors 3 10/26/25 13:44 PONV Score Moderate Risk 10/26/25 13:44 Height & Weight Height & Weight: Anesthesia: Height & Weight Height 5 ft 11 in 10/12/24 15:06 Respiratory Assessment Respiratory Assessment - boilerhouse mechanic: Respiratory Tract Infection Hx - boilerhouse mechanic Hx Respiratory Tract Infection No 10/26/25 13:44 STOP Sleep Apnea STOP Sleep Apnea - boilerhouse mechanic: STOP Sleep Apnea - boilerhouse mechanic Hx Hypertension Yes: on meds 10/26/25 13:44 Hx Sleep Apnea No 10/26/25 13:44 CPAP BIPAP Do you snore loudly (louder No 10/26/25 13:44 than talking or can be heard Do you often feel tired/ No 10/26/25 13:44 fatigued/ sleepy during daytime? Has anyone observed you stop No 10/26/25 13:44 breathing during sleep? STOP Results Negative 10/26/25 13:44 QUESTION #5 FULL TEXT : Do you snore loudly (louder than talking or can be heard through closed doors)? 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 Specify any problems Hx of Preganancy in last 3 N/A 10/26/25 13:44 Months Nurse Filling Out Transfusion JZOLLINGE 10/26/25 13:44 & Questions: Date: 10/26/25 10/26/25 13:44 Time: 13:46 10/26/25 13:44 Patient unable to answer at this time (ie. confused, unrespo /Reproduction History /Reproductive History - boilerhouse mechanic: /Reproductive Hx- boilerhouse mechanic Hx Now No 10/26/25 13:44 Gestational Age (in weeks): EDC: Hx Hx Para Hx Section SAB No 10/26/25 13:44 Does the father of the baby or his family experience fever w Father of the baby Malignant Hypertension history comment [facility] Medical History Wears glasses Alcohol use Arthritis Kidney stones Back pain Injury of head and neck Difficulty swallowing History of Crohn's disease History of diverticulitis Gastric reflux Former smoker Asthma Hoarseness Chronic cough History of pain when walking History of edema History of stress test History of echocardiogram Hypertension Cardiology follow-up encounter History of atrial fibrillation Abnormal cardiac enzyme level SVT (supraventricular tachycardia) Acute bronchitis Community acquired MRSA infection Dementia Depression Osteoarthritis Crohns disease BPH (benign prostatic hyperplasia) Benign essential hypertension Home Medications ?Medication ?Instructions ?Recorded ?Last Taken ?Type coenzyme Q10 100 mg capsule 100 mg PO DAILY supplement 08/30/15 10/11/24 History cyanocobalamin (vitamin B-12) 1,000 mcg PO DAILY supplement 08/30/15 10/11/24 History 1,000 mcg/mL oral drops folic acid 1 mg tablet 1 mg PO BIDCM supplement 08/30/15 10/11/24 History lansoprazole 30 mg capsule,delayed 30 mg PO BID gerd 08/30/15 10/11/24 History release besmdlbq-rqt-jrdjk acid 0.4 1 ea PO DAILY supplement 08/30/15 10/11/24 History mg-lycopene 300 mcg-lutein 250 mcg tablet sertraline 100 mg tablet 200 mg PO DAILY depression 08/30/15 10/11/24 History vit A 7,160 unit-C 113 mg-E 100 2 ea PO DAILY eye supplement 08/30/15 10/11/24 History gkmp-ksdb-soeppd tablet,delayed rel. antiarthritic combination no.2 900 900 mg PO DAILY supplement 05/27/20 10/11/24 History mg tablet (glucosamine-chondroitin) finasteride 5 mg tablet 5 mg PO DAILY bladder 05/27/20 10/11/24 History magnesium oxide 400 mg (241.3 mg 400 mg PO .qd supplement 05/27/20 10/11/24 History magnesium) tablet sucralfate 1 gram tablet 1 g PO BID stomach 05/27/20 10/11/24 History lisinopril 5 mg tablet 5 mg PO DAILY bp #90 tabs 08/05/21 Unknown Rx buspirone 10 mg tablet 10 mg PO BID anxiety 08/25/21 10/11/24 History primidone 250 mg tablet 250 mg PO BID not sure why he 03/20/22 10/11/24 History takes it propranolol 40 mg tablet 40 mg PO TID bp 03/20/22 10/11/24 History donepezil 10 mg tablet 10 mg PO QHS memory 06/13/24 10/11/24 History metoprolol tartrate 50 mg tablet 50 mg PO BID bp 06/13/24 10/11/24 History tamsulosin 0.4 mg capsule 0.4 mg PO DAILY prostate 06/13/24 10/11/24 History meloxicam 7.5 mg tablet 7.5 mg PO BID pain #60 tabs 10/13/24 Unknown Rx acetaminophen 500 mg capsule 1,000 mg PO Q8 PRN fever or pain 10/26/25 Unknown History Allergy/AdvReac Type Severity Reaction Status Date / Time atorvastatin AdvReac Unknown Verified 10/26/25 13:27 Penicillins AdvReac Unknown Verified 10/26/25 13:27 Surgical History Hx of sinus surgery Hx of umbilical hernia repair History of cholecystectomy History of tonsillectomy History of foot surgery History of total knee arthroplasty Social History Smoking Status: Former smoker how long ago did patient quit smokin's alcohol intake: never substance use type: does not use caffeine: No Audit: Pertinent Findings HISTORY of Pertinent Findings History of Pertinent Findings: EKG Pertinent Findings EKG Perinent findings 06/03/2019. Supraventricular 10/26/25 14:49 tachycardia. 174 bpm inferior infarct age undetermined. Stress Test Pertinent Findings Stress test pertinent findings 07/18/2019. Negative EF 72%. 10/26/25 14:49 Echo Pertinent Findings Echo (EF%) pertinent findings 06/02/2019. EF 65% pulmonary 10/26/25 14:49 artery pressure 31. Consult Pertinent Findings Consult pertinent findings Cardiology 03/20/2022. SVT. 10/26/25 14:49 Resolved. Continue diltiazem. Chronic hypertension. Pertinent Findings EKG Perinent findings: November 01, 2025. Normal sinus rhythm. Left axis deviation. Possible lateral infarct (cited on or before June 01, 2019). Inferior infarct (also seen on EKG June 01, 2019). Recommendation Anesthesia Recommendation Anesthesia recommendation: OPTIMIZED for anesthesia
[2025-11-09] VITALS (15 sets, daily range): BP systolic 100–135; BP diastolic 60–79; PULSE 56–80; RESP 14–18; TEMP 36–36.7; O2SAT 95–100; BMI 29.2
--- NOTE | 2025-11-09 07:43 | DCINST_ITS ---
Discharge Instructions DC O2, CPAP, BIPAP needs Home O2 Discharge instructions: No Dressing / Incision Discharge Activity: Return to Normal Activity and May Not Drive (while taking narcotic pain medications.) Dressing / Incision Call your doctor if you observe: Fever of 101 or Higher Follow Up Care Please Follow Up With: Tyler Dale MD When: Call [phone] for an appointment Test Results: Test results from this visit will be discussed in further detail at your follow- up appointment, if applicable. Discharge Plan Admission Primary Reason for Your Visit: turp Attending Provider: Tyler Dale Primary Care Provider: Lena Jauregui Instructions Patient Instructions: TURP, TURP Home Recovery, TURP Hospital Recovery Print Language: Kenyan Discharge Orders/Prescriptions Prescriptions: New ciprofloxacin HCl [Cipro] 500 mg tablet 500 mg PO BID Qty: 10 0RF Continued glucosamine-chondroitin 900 mg tablet 900 mg PO DAILY magnesium oxide 400 mg (241.3 mg magnesium) tablet 400 mg PO .qd sucralfate 1 gram tablet 1 g PO BID primidone 250 mg tablet 250 mg PO BID buspirone 10 mg tablet 10 mg PO BID propranolol 40 mg tablet 40 mg PO TID sertraline 100 MG tablet 200 mg PO DAILY lansoprazole 30 MG capsule 30 mg PO BID folic acid 1 MG tablet 1 mg PO BIDCM coenzyme Q10 100 MG capsule 100 mg PO DAILY rmtunyvx-mrt-OT-lycopen-lutein 1 EACH tablet 1 ea PO DAILY cyanocobalamin (vitamin B-12) 1,000 MCG/ML drops 1,000 mcg PO DAILY vitamins A,C,Q-nrce-jxsrmw 1 EACH tablet,delayed release (DR/EC) 2 ea PO DAILY donepezil 10 mg tablet 10 mg PO QHS metoprolol tartrate 50 mg tablet 50 mg PO BID meloxicam 7.5 mg Tablet 7.5 mg PO BID Qty: 60 0RF acetaminophen 500 mg capsule 1,000 mg PO Q8 PRN (Reason: fever or pain) lisinopril 5 mg tablet 5 mg PO DAILY Qty: 90 3RF Discontinued finasteride 5 mg tablet 5 mg PO DAILY tamsulosin 0.4 mg capsule 0.4 mg PO DAILY Referrals / Follow Up: Tyler Dale MD [Med Staff - Active Staff, Urology] Lena Jauregui MD [Primary Care Provider, Internal Medicine] Disposition Disposition (needs filled in before D/C Order can be placed): Home, Self Care
--- NOTE | 2025-11-09 09:15 | PRE.ANES_ITS ---
ASA Classification* ASA Classification ASA Classification: 3 Assessment & Plan Anesthesia* Anesthesia Assessment Anesthesia Assessment: Discussed sedation and/or anesthesia options, risks, benefits, and alternatives with patient/parents/legal guardian/POA. Questions invited. The patient/parents/legal guardian/POA seems to understand and agrees to proceed with anesthesia plan. Reviewed the physical assessment, medical history, allergy history and patient home medications list prior to surgery/procedure/anesthetic and documented any changes. Performed airway and anesthesia risk assessments. Anesthesia Type Anesthesia Type: General Anesthesia Focused Assessment* Airway Assessment Mouth opens: >3 cm Mallampati Score: II Labs Anesthesia Preop lab: CBC WBC, (4.4-11.0) 9.4 K/mm3 10/13/24, 05:26 RBC, (4.6-6.2) 3.90 M/mm3 L 10/13/24, 05:26 Hgb, (13.0-16.5) 10.5 g/dL L 10/13/24, 05:26 Hct, (40-54) 33.7 % L 10/13/24, 05:26 Plt Count, (150-450) 135 K/mm3 L 10/13/24, 05:26 CHEMISTRY Potassium, (3.5-5.1) 3.9 mmol/L 10/13/24, 05:26 Sodium, (136-145) 137 mmol/L 10/13/24, 05:26 Magnesium, (1.6-2.6) 2.4 mg/dL 09/28/24, 13:14 BUN, (7-18) 17 mg/dL 10/13/24, 05:26 Creatinine, (0.70-1.30) 1.15 mg/dL 10/13/24, 05:26 Glucose, (74-106) 101 mg/dL 10/13/24, 05:26 POC Glucose, (74-106) 156 mg/dL H 10/12/24, 07:24 TSH, (0.358-3.74) 2.43 uIU/mL 06/03/19, 05:55 COAG PT, (11.7-14.9) 13.9 SECONDS 06/01/19, 15:40 Pre-Assessment Diagnosis/Proposed Procedure Planned Operative Procedure(s): Cysto,Transurethral Resection Prostate Anesthesia History 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 When Was Last Pacemaker Check QUESTION #4 FULL TEXT: You/Your Family Experience fever (hyperthermia) with Anesthesia Last Oral Intake Last Oral intake: Last Oral Intake NPO since Meds taken in AM with sips of water? 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 Has anyone observed you stop No 10/26/25 13:44 breathing during sleep? STOP Results Negative 10/26/25 13:44 QUESTION #5 FULL TEXT : Do you snore loudly (louder than talking or can be heard through closed doors)? 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 Specify any problems Hx of Preganancy in last 3 N/A 10/26/25 13:44 Months Nurse Filling Out Transfusion JZOLLINGE 10/26/25 13:44 & Questions: Date: 10/26/25 10/26/25 13:44 Time: 13:46 10/26/25 13:44 Patient unable to answer at this time (ie. 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: /Reproductive Hx- regional tanker truck driver Hx Now No 10/26/25 13:44 Gestational Age (in weeks): EDC: Hx Hx Para Hx Section SAB No 10/26/25 13:44 Does the father of the baby or his family experience fever w Father of the baby Malignant Hypertension history comment Active Medications Active Medications: Current Medications Generic Name Dose Route Start Last Admin Trade Name Freq PRN Reason Stop Dose Admin Acetaminophen 500 mg 11/09/25 10:00 Acetaminophen 500 Mg Tablet PO Q4 JANNET Al Hydroxide/Mg Hydroxide 30 ml 11/09/25 07:39 Mag Hydrox/Al Hydrox/Simeth 30 Ml Udc PO Q4H PRN PRN [facility] Buspirone HCl 10 mg 11/09/25 10:00 Buspirone 5 Mg Tablet PO BID JANNET Ciprofloxacin HCl 500 mg 11/09/25 10:00 Ciprofloxacin 500 Mg Tablet PO BID JANNET Docusate Sodium 200 mg 11/09/25 10:00 Docusate Sodium 100 Mg Capsule PO BID [facility] Donepezil HCl 10 mg 11/09/25 22:00 Donepezil Hcl 10 Mg Tablet PO QHS [facility] Sodium Chloride 1,000 mls @ 125 mls/hr 11/09/25 07:40 IV .Q8H [facility] Ketorolac Tromethamine 15 mg 11/09/25 12:00 Ketorolac 15 Mg/Ml Vial IV 11/11/25 07:40 Q6 [facility] Lisinopril 5 mg 11/09/25 10:00 Lisinopril 5 Mg Tablet PO DAILY [facility] Protocol Meloxicam 7.5 mg 11/09/25 10:00 Meloxicam 7.5 Mg Tablet PO BID [facility] Metoprolol Tartrate 50 mg 11/09/25 10:00 Metoprolol Tartrate 50 Mg Tablet PO BID [facility] Protocol Non-Formulary Medication 30 mg 11/09/25 10:00 Lansoprazole PO BID [facility] Primidone 250 mg 11/09/25 10:00 Primidone 250 Mg Tablet PO BID [facility] Propranolol HCl 40 mg 11/09/25 14:00 Propranolol 40 Mg Tablet PO TID [facility] Protocol Sertraline HCl 200 mg 11/09/25 10:00 Sertraline 100 Mg Tablet PO DAILY [facility] Sucralfate 1 gm 11/09/25 10:00 Sucralfate 1 Gm Tablet PO BID [facility] Medical History Wears glasses Alcohol use Arthritis Kidney stones Back pain Injury of head and neck Difficulty swallowing History of Crohn's disease History of diverticulitis Gastric reflux Former smoker Asthma Hoarseness Chronic cough History of pain when walking History of edema History of stress test History of echocardiogram Hypertension Cardiology follow-up encounter History of atrial fibrillation Abnormal cardiac enzyme level SVT (supraventricular tachycardia) Acute bronchitis Community acquired MRSA infection Dementia Depression Osteoarthritis Crohns disease BPH (benign prostatic hyperplasia) Benign essential hypertension Home Medications ?Medication ?Instructions ?Recorded ?Last Taken ?Type coenzyme Q10 100 mg capsule 100 mg PO DAILY supplement 08/30/15 10/11/24 History cyanocobalamin (vitamin B-12) 1,000 mcg PO DAILY suppl ement 08/30/15 10/11/24 History 1,000 mcg/mL oral drops folic acid 1 mg tablet 1 mg PO BIDCM supplement 01/1310/11/24 History lansoprazole 30 mg capsule,delayed 30 mg PO BID gerd 1 10/11/24 History release wsascwqp-kfv-wxupa acid 0.4 1 ea PO DAILY supplement 1 10/11/24 History mg-lycopene 300 mcg-lutein 250 mcg tablet sertraline 100 mg tablet 200 mg PO DAILY depression 1 10/11/24 History vit A 7,160 unit-C 113 mg-E 100 2 ea PO DAILY eye supp lement 08/30/15 10/11/24 History dmnb-iizq-ubjvck tablet,delayed rel. antiarthritic combination no.2 900 900 mg PO DAILY sup plement 05/27/20 10/11/24 History mg tablet (glucosamine-chondroitin) magnesium oxide 400 mg (241.3 mg 400 mg PO .qd supplem ent 05/27/20 10/11/24 History magnesium) tablet sucralfate 1 gram tablet 1 g PO BID stomach 05/27/20 10/11/24 History lisinopril 5 mg tablet 5 mg PO DAILY bp #90 tabs Unknown Rx buspirone 10 mg tablet 10 mg PO BID anxiety 1 10/11/24 History primidone 250 mg tablet 250 mg PO BID not sure why h e 03/20/22 10/11/24 History takes it propranolol 40 mg tablet 40 mg PO TID bp 03/20/22 History donepezil 10 mg tablet 10 mg PO QHS memory 06/13/24 10/11/24 History metoprolol tartrate 50 mg tablet 50 mg PO BID bp 06/1310/11/24 History meloxicam 7.5 mg tablet 7.5 mg PO BID pain #60 tabs 10/13/24 Unknown Rx acetaminophen 500 mg capsule 1,000 mg PO Q8 PRN fever or pain 10/26/25 Unknown History ciprofloxacin HCl 500 mg tablet 500 mg PO BID #10 tabs 11/09/25 Unknown Rx (Cipro) Allergy/AdvReac Type Severity Reaction Status Date / Time atorvastatin AdvReac Unknown Verified 10/26/25 13:27 Penicillins AdvReac Unknown Verified 10/26/25 13:27 Surgical History Status post reverse total arthroplasty of left shoulder Hx of sinus surgery Hx of umbilical hernia repair History of cholecystectomy History of tonsillectomy History of foot surgery History of total knee arthroplasty Social History Smoking Status: Former smoker how long ago did patient quit smokin' alcohol intake: never substance use type: does not use caffeine: No Review of Systems (Anesthesia) ROS Narrative System reviewed and no additional complaints, except as documented.
[2025-11-09] MEDS: Lactated Ringers 1,000 ML 15 ML IV (10:06)
--- NOTE | 2025-11-09 11:30 | PROS_PTH ---
PATIENT: EVELIA NAILS Jr. LOC: [facility] [place] U#:[id number] AGE/SX: 84/M ROOM: RE11/09/[address]: Dr. Tyler Dale MD : 1940 BED: DIS: 11/10/2025 SPEC #: [id number] RECD: 11/09/25 13:03 STATUS: CARLY REQ #: [id number] DIANNA: 11/09/25 11:[address]: Tyler Dale DEPT: SURGICAL PATHOLOGY RECD BY: Guru White ENTERED: 11/09/25 14:25 SP TYPE: TURP OTHR DR: Dr. Lena Jauregui MD Tissues: A - Prostate, NOS Procedures: Special Stain Group I Surgery Specimen Level IV AFB Stain (control) GMS Stain (control) HEADER OPERATION: Cysto, transurethral resection of prostate PRE-OP DIAGNOSIS: Benign prostatic hyperplasia with lower urinary tract symptoms, feeling of incomplete bladder emptying, poor urinary stream TISSUE SUBMITTED: A- Prostate chips MICROSCOPIC DIAGNOSIS A. Prostate, transurethral resection: - Benign prostate tissue with scattered necrotizing granulomas. - Special stains (AFB, GMS) for microorganisms are pending and will be reported in an addendum. MICROSCOPIC DESCRIPTION Slides are reviewed. GROSS DESCRIPTION A. Received in formalin labeled with the patient's name and date of . Designated as prostate chips is a 4.9 g, 5.5 x 3.4 x 1.1 cm aggregate of irregular, flores, rubbery and cauterized tissue fragments. Entirely submitted in 5 cassettes. RI [id number] ADDENDUM ADDENDUM ADDENDUM ADDENDUM ADDENDUM ADDENDUM ADDENDUM ADDENDUM ADDENDUM ADDENDUM ADDENDUM ADDENDUM ADDENDUM 11/13/2025 14:41 ADDENDUM 11/13/2025 14:41 ADDENDUM 11/13/2025 14:41 ADDENDUM 11/13/2025 14:41 ADDENDUM 11/13/2025 14:41 This addendum is to report the AFB and GMS special stains: AFB: negative for acid fast bacilli GMS: negative for fungal organisms All matched controls reacted appropriately. These tests were developed and their performance characteristics determined by [facility]. They may not have been cleared or approved by the U.[place]. Food and Drug Administration. The FDA has determined that such clearance or approval is not necessary. The above immunohistochemical markers and/or special?stains have been reviewed by the Pathologist.
[2025-11-09] MEDS: Lidocaine 1% (5 ml sdv) 5 ML Vial IV (11:42)
[2025-11-09] MEDS: fentaNYL 100 MCG/2 ML Ampul IV (11:49)
--- NOTE | 2025-11-09 12:14 | OP.PCM_ITS ---
Operative Report (Standard) Operative Information Date of Procedure: 11/09/25 Pre-Operative Diagnosis: BPH with obstruction Post-Operative Diagnosis: The same Surgery/Procedure Performed: Transurethral section of prostate nut sheller: No Type of Anesthesia: General RN Documented Start/Stop Times: Operation Date: 11/09/25 11:30 Case Time Into Pre-Op 11/09/25 09:25 Anesthesia Start 11/09/25 11:35 Into Room 11/09/25 11:35 Procedure Start 11/09/25 11:47 Procedure Start Time: 11:47 Procedure Stop Time: 12:14 Select all DRAINS/GRAFTS/IMPLANTS that apply: Drains Drain details: 22 Slovenian three-way Chua Estimated Blood Loss: Minimal Specimen collected: Yes Description of specimen(s) removed: Prostate tissue Description of surgery: In the preoperative setting I discussed with the patient how the surgery would be done with expect afterwards. We discussed how a prostate resection is done and we discussed the risk of the surgery including, bleeding, infection, retrograde ejaculation, changes with ejaculation or intercourse,. We discussed the possibility that the resection of the prostate may not alleviate his urinary symptoms. We discussed the small risk of developing scar tissue along the urethral channel and strictures. We also discussed the chance of the prostate could grow back and he may need further surgery or treatment in the future for prostate problems. Patient was taken back to the operating room, timeout procedure was performed, he was identified and marked and placed on the operating room table. He underwent general anesthesia. He was placed in dorsolithotomy position. Penis and testicles were prepped and draped in usual sterile fashion. Went into the bladder using the visual obturator with a resectoscope. Once inside the bladder identified the right and left ureteral orifice. I then identified the prostate and the anatomy of the prostate. I marked out the area of the sphincter and the verumontanum was identified. I then proceeded with the prostate resection first resected the median lobe. And then resected the right lobe of the prostate. Then to resect the left lobe of the prostate. I then resected the apical tissue of the prostate. This was a complete resection of all obstructive tissue to improve voiding and relieve obstruction. I then made sure that there was no injury to the sphincter or the verumontanum was still intact. At the end of the resection all the chips were Ellik out of the bladder. I then identified the left and right ureteral orifice and these were confirmed to be in good position and effluxing and not injured. The resectoscope was removed, a 22 Slovenian catheter was placed into the bladder on continuous irrigation. And the urine was fairly light pink color and draining normally. He was taken back to the PACU in good condition. Surgical Findings: Prostate resected nicely open Complications Complications: No Admit VTE Documentation VTE Present on Admission: No VTE Mechan Device Prophylaxis: SCD's VTE Pharm Prophylaxis ordered?: No
--- NOTE | 2025-11-09 13:41 | PCM.POST.ANE ---
Anesthesia: Postop Eval I Current Vital Signs Temperature: 96.8 F Pulse Rate: 72 Blood Pressure: 119/79 Respiratory Rate: 14 Pulse Ox: 100 Oxygen Delivery Method: Room Air Assessment Airway patent: Yes Spontaneous unlabored respirations: Yes Mental status: Awake nausea: No Vomiting: No Anesthesia Complication: No Fluid Hydration Crystalloid volume administer (ml): 800 Total IV fluid infused: 800 Progress Note Anesthesia document: Postop Eval 1 completed: Yes
--- NOTE | 2025-11-09 13:56 | POSTOPAN2_ITS ---
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.SHOF Spontaneous unlabored Yes 11/09/25 13:42 TERMINAL MAKE UP OPERATOR.SHOF respirations Mental status Awake 11/09/25 13:42 TERMINAL MAKE UP OPERATOR.SHOF nausea No 11/09/25 13:42 TERMINAL MAKE UP OPERATOR.SHOF Vomiting No 11/09/25 13:42 TERMINAL MAKE UP OPERATOR.SHOF Anesthesia Postop Eval I: Fluid Summary Crystalloid volume administer 800 11/09/25 13:42 TERMINAL MAKE UP OPERATOR.SHOF (ml) Colloids volume administered ( ml) Blood Product volume administered (ml) Total IV fluid infused 800 11/09/25 13:42 TERMINAL MAKE UP OPERATOR.SHOF Anesthesia Postop Eval I: Summary Notes Anesthesia Complication No 11/09/25 13:42 TERMINAL MAKE UP OPERATOR.SHOF Anesthesia Complication Comment: Post-operative progress note Anesthesia: Postop Eval II Evaluation Mental status: Awake Pain Level: 2 nausea: No Vomiting: No
--- NOTE | 2025-11-09 13:56 | PCM.POSTANE2 ---
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 MUD ANALYSIS.SHOF Spontaneous unlabored Yes 11/09/25 13:42 WELL LOGGING OPERATOR MUD ANALYSIS.SHOF respirations Mental status Awake 11/09/25 13:42 WELL LOGGING OPERATOR MUD ANALYSIS.SHOF nausea No 11/09/25 13:42 WELL LOGGING OPERATOR MUD ANALYSIS.SHOF Vomiting No 11/09/25 13:42 WELL LOGGING OPERATOR MUD ANALYSIS.SHOF Anesthesia Postop Eval I: Fluid Summary Crystalloid volume administer 800 11/09/25 13:42 WELL LOGGING OPERATOR MUD ANALYSIS.SHOF (ml) Colloids volume administered ( ml) Blood Product volume administered (ml) Total IV fluid infused 800 11/09/25 13:42 WELL LOGGING OPERATOR MUD ANALYSIS.SHOF Anesthesia Postop Eval I: Summary Notes Anesthesia Complication No 11/09/25 13:42 WELL LOGGING OPERATOR MUD ANALYSIS.SHOF Anesthesia Complication Comment: Post-operative progress note Anesthesia: Postop Eval II Evaluation Mental status: Awake Pain Level: 2 nausea: No Vomiting: No
[2025-11-09] MEDS: 0.9% Normal Saline (1000mL) 1,000 ML 125 ML IV ×2 (15:23→23:10)
[2025-11-10 05:23] VITALS: BP 128/65; PULSE 53; RESP 20; TEMP 36.6; O2SAT 94
[2025-11-10] MEDS: 0.9% Normal Saline (1000mL) 1,000 ML 125 ML IV (07:25)
--- NOTE | 2025-11-10 09:08 | PCM.PN.GU ---
Subjective Subjective Status post TURP, nurses can remove the Chua catheter and patient can be discharged home after he voids Objective Data Objective Data Vital Signs: Vital Signs Temp Pulse Resp BP Pulse Ox O2 Del Method 97.8 F 53 L 20 H 128/65 H 94 Room Air 11/10/25 05:23 11/10/25 05:23 11/10/25 05:23 11/10/25 05:23 11/10/25 05:23 11/10/25 05:23 Oxygen Delivery Method Room Air Weight: 95 kg Body Mass Index (BMI) 29.2 Intake & Output: Intake and Output for Last 24 Hours 11/08/25 11/09/25 11/10/25 23:59 23:59 23:59 Intake Total 2212.92 / 2212.92 1400 / 1400 Output Total 1600 / 1600 400 / 400 Balance 612.92 / 612.92 1000 / 1000
--- NOTE | 2025-11-10 09:09 | DS.PCM_ITS ---
Providers Date of Discharge: 11/10/25 Primary Care Physician: Dr. Lena Jauregui MD Reason For Visit: Cysto,Transurethral Resection Prostate Medications at Discharge Home Medications coenzyme Q10 100 mg capsule 100 mg PO DAILY supplement 08/30/15 cyanocobalamin (vitamin B-12) 1,000 mcg/mL oral drops 1,000 mcg PO DAILY supplement 08/30/15 folic acid 1 mg tablet 1 mg PO BIDCM supplement 08/30/15 lansoprazole 30 mg capsule,delayed release 30 mg PO BID gerd 08/30/15 nstetwbw-wkj-cfuxs acid 0.4 mg-lycopene 300 mcg-lutein 250 mcg tablet 1 ea PO DAILY supplement 08/30/15 sertraline 100 mg tablet 200 mg PO DAILY depression 08/30/15 vit A 7,160 unit-C 113 mg-E 100 gdap-aovw-uadfdo tablet,delayed rel. 2 ea PO DAILY eye supplement 08/30/15 antiarthritic combination no.2 900 mg tablet (glucosamine-chondroitin) 900 mg PO DAILY supplement 05/27/20 magnesium oxide 400 mg (241.3 mg magnesium) tablet 400 mg PO .qd supplement 05/27/20 sucralfate 1 gram tablet 1 g PO BID stomach 05/27/20 lisinopril 5 mg tablet 5 mg PO DAILY bp #90 tabs 08/05/21 buspirone 10 mg tablet 10 mg PO BID anxiety 08/25/21 primidone 250 mg tablet 250 mg PO BID not sure why he takes it 03/20/22 propranolol 40 mg tablet 40 mg PO TID bp 03/20/22 donepezil 10 mg tablet 10 mg PO QHS memory 06/13/24 metoprolol tartrate 50 mg tablet 50 mg PO BID bp 06/13/24 meloxicam 7.5 mg tablet 7.5 mg PO BID pain #60 tabs 10/13/24 acetaminophen 500 mg capsule 1,000 mg PO Q8 PRN fever or pain 10/26/25 ciprofloxacin HCl 500 mg tablet (Cipro) 500 mg PO BID #10 tabs 11/09/25 Hospital Course Operations TURP Weight / BMI Weight Weight: 95 kg Body Mass Index (BMI) 29.2 D/C Instructions Call your doctor if you observe: Fever of 101 or Higher DC O2, CPAP, BIPAP Needs Home O2 Discharge instructions: No Please Follow Up With: Tyler Dale MD When: Call [phone] for an appointment Meaningful Use Info Meaningful Use Meaningful Use Diagnoses (Choose all that apply): None applicable Discharge Plan Admission Primary Reason for Your Visit: julien Attending Provider: Tyler Dale Primary Care Provider: Lena Jauregui Instructions Patient Instructions: TURP, TURP Home Recovery, TURP Hospital Recovery Print Language: Hungarian Discharge Orders/Prescriptions Prescriptions: New ciprofloxacin HCl [Cipro] 500 mg tablet 500 mg PO BID Qty: 10 0RF Continued glucosamine-chondroitin 900 mg tablet 900 mg PO DAILY magnesium oxide 400 mg (241.3 mg magnesium) tablet 400 mg PO .qd sucralfate 1 gram tablet 1 g PO BID primidone 250 mg tablet 250 mg PO BID buspirone 10 mg tablet 10 mg PO BID propranolol 40 mg tablet 40 mg PO TID sertraline 100 MG tablet 200 mg PO DAILY lansoprazole 30 MG capsule 30 mg PO BID folic acid 1 MG tablet 1 mg PO BIDCM coenzyme Q10 100 MG capsule 100 mg PO DAILY augikomg-qht-PQ-lycopen-lutein 1 EACH tablet 1 ea PO DAILY cyanocobalamin (vitamin B-12) 1,000 MCG/ML drops 1,000 mcg PO DAILY vitamins A,C,T-lxea-bpydtz 1 EACH tablet,delayed release (DR/EC) 2 ea PO DAILY donepezil 10 mg tablet 10 mg PO QHS metoprolol tartrate 50 mg tablet 50 mg PO BID meloxicam 7.5 mg Tablet 7.5 mg PO BID Qty: 60 0RF acetaminophen 500 mg capsule 1,000 mg PO Q8 PRN (Reason: fever or pain) lisinopril 5 mg tablet 5 mg PO DAILY Qty: 90 3RF Discontinued finasteride 5 mg tablet 5 mg PO DAILY tamsulosin 0.4 mg capsule 0.4 mg PO DAILY Referrals / Follow Up: Tyler Dale MD [Med Staff - Active Staff, Urology] Lena Jauregui MD [Primary Care Provider, Internal Medicine] Disposition Disposition (needs filled in before D/C Order can be placed): Home, Self Care
[2025-11-10 09:29] VITALS: PULSE 67
[2025-11-10 11:23] VITALS: BP 122/62; PULSE 67; RESP 18; TEMP 36.6; O2SAT 95
[2025-11-10 14:47] VITALS: BP 124/48; PULSE 57; RESP 16; TEMP 36.1; O2SAT 97
--- OUTSIDE RECORDS SUMMARY | 2025-11-10 18:54 | XMS RPT_ITS | CCD ---
Author Organization [facility] Care Team Providers Care Special Services Coordinator Name Role Phone Laila Ramos MD Primary Care Provider Laila Ramos MD Primary Care Provider Carine GUERRA, Lili Unavailable Laila Ramos MD Primary Care Provider RICHARD GUERRA, DR ULLOA Primary Care Physician Romero FRUIT HARVESTER.MEDICAL RECORDS SUPERVISOR, Em Unavailable Jami FRUIT HARVESTER.CHIPPING MACHINE OPERATOR, Chloé Unavailable QUINTIN KAY DO Attending Unavailable RICHARD GUERRA, DR ULLOA Primary Care Unavailable EVELIA YIP DO Consulting Unavailable QUINTIN KAY DO Admitting Unavailable LING JIANG-BHARATI HOLT Consulting Unavailcm RAMOS MD, DR ULLOA Primary Care Unavailable RICHARD GUERRA, DR ULLOA Attending Unavailable Jami FRUIT HARVESTER.CHIPPING MACHINE OPERATOR, Chloé Unavailable Jami FRUIT HARVESTER.CHIPPING MACHINE OPERATOR, Chloé Unavailable [phone] Zonia Ramosa Lakshmi Primary Care Unavailable Gabo Francisco Attending Unavailable Gabo Francisco Referring Unavailable McnamaraChad Attending Unavailable Mcnamara Chad Referring Unavailable Talampas, Laila D Primary Care Unavailable Maryam Gabo Referring Unavailable Octavio Simpson Attending Unavailable Talampyolanda, Laila D Primary Care Unavailable Chad Castrejon Consulting Unavailable Gabo Francisco Referring Unavailable Spittneftaly Gabo Admitting Unavailable Talampas, Laila D Primary Care Unavailable Gabo Francisco Attending Unavailable Gabo Francisco Referring Unavailable Talampas, Laila D Primary Care Unavailable Gabo Francisco Attending Unavailable Chloé Farrell Attending Unavailable Talampas, Laila D Primary Care Unavailable Pedroampas , Dr. Laila Martins Primary Care Physician Chad Mahmood Attending Physician Chad Mahmood Referring Provider SELF Referring Unavailable TALAMPAS, LAILA D Primary Care Unavailable TALAMPAS, LAILA D Referring Unavailable TALAMPAS, LAILA D Primary Care Unavailable TALAMPAS, LAILA D Primary Care Unavailable TALAMPAS, LAILA D Attending Unavailable TALAMPAS, LAILA D Primary Care Unavailable TALAMPAS, LAILA D Referring Unavailable TALAMPAS, LAILA D Primary Care Unavailable SELF Referring Unavailable TALAMPAS, LAILA D Attending Unavailable TALAMPAS, LAILA D Primary Care Unavailable ROMERO, EM Referring Unavailable TALAMPAS, LAILA D Primary Care Unavailable TALAMPAS, LAILA D Attending Unavailable ROMERO, EM Attending Unavailable TALAMPAS, LAILA D Primary Care Unavailable Allergies Allergy Classification Reported Allergen(s) Allergy Type Date of Onset Reaction(s) Facility (20 sources) atorvastatin; Translations: [atorvastatin] Drug Allergy 3 [facility] [place] [facility] [place] Comment on above: INEFFECTIVE-PER PT-D ON'T WORK (5 sources) Penicillins; Translations: [penicillins] Propensity to adverse reactions 5 [facility] Work Phone: (20 sources) Penicillins Propensity to adverse reactions 5 [facility] Work Phone: (3 sources) Penicillins Propensity to adverse reactions 2 Unknown [facility] Comment on above: DOESN'T WORK-PER PT (1 source) montelukast; Translations: [montelukast] Drug Allergy [place] (1 source) Propranolol; Translations: [propranolol] Drug Allergy [place] (1 source) Penicillins Propensity to adverse reactions to drug 5 [facility] [place] [facility] [place] (1 source) atorvastatin Drug Allergy 4 [facility] (1 source) Penicillins Drug allergy (disorder) 4 [facility] Medications Current Medications Medication Drug Class(es) Dates Sig (Normalized) Sig (Original) acetaminophen 500 mg oral tablet (20 sources) Start: 10-17-2024 acetaminophen 500 mg oral tablet Dose : 1,000 mg = 2 tab(s), Oral, q8h Start Date: 10/17/24 Status: Ordered Start: 10-17-2024 End: 04-10-2025 Acetaminophen 500 mg cap NICOLE RY 8 HOURS 10/17/2024 04/10/2025 Discontinued Start: 10-17-2024 take 2 capsules by m outh every eight hours Start: 10-13-2024 take 2 tablets by mo uth every eight hours Albuterol (20 sources) beta2-Adrenergic Agonist Start: 10-17-2024 take 2 puff(s) by inhalation every four hours as needed for wheezing Ventolin HFA MDI (90 mcg/inh) inhalation aerosol 2 puff(s), Inhalation, q4h, PRN as needed for shortness of breath or wheezing Start Date: 10/17/24 Status: Ordered Start: 01-15-2021 End: 09-25-2024 take 2 puff(s) by inhalation every four hours as needed albuterol HFA (PROAIR HFA) 90 mcg/actuation inhaler Inhale 2 Puffs as instructed every 4 hours as needed. 18 g 1 06/22/2022 09/25/2024 Discontinued Start: 05-27-2020 Start: 05-27-2020 take 1 puff(s) by in halation every four hours Albuterol Sulfate (Ventolin Hfa) 90 mcg/actuation HFA aerosol inhaler Active 2 PUFF INHALATION Q4H May 27, 2020 12:00am Start: 06-02-2019 End: 07-24-2019 Albuterol Sulfate 1 INHALER inhaler Discontinued 90 ug EVERY 4 HOURS NEEDED as needed for Sob &/Or Wheezing June 02, 2019 12:00am July 24, 2019 11:38am Comment on above: Inhale 2 Puffs as in structed every 4 hours as needed. Antiarthritic Combination No.2 (Glucosamine-Chondroitin) 900 mg tablet (3 sources) Start: 05-27-2020 take 1 tablet by mouth once daily Start: 05-27-2020 take 1 tablet by duy th once daily Antiarthritic Combination No.2 (Glucosamine-Chondroitin) 900 mg tablet Active 900 MG PO DAILY May 27, 2020 12:00am Beta Carotene (20 sources) Start: 08-30-2015 take 1 tablet by duy once daily Beta Carotene Active 1 TABLET PO DAILY August 30, 2015 12:00am Start: 08-30-2015 take 1 tablet by duy once daily Beta Carotene Active 1 TABLET PO DAILY August 30, 2015 12:00am End: 09-25-2024 BETA CAROTENE ORAL Take by out. 09/25/2024 Discontinued BETA CAROTENE OR AL Take by mouth. Active BETA CAROTENE OR AL Take by mouth. 0 Active Comment on above: Take by mouth. busPIRone hydrochloride 10 m g oral tablet (20 sources) Start: 05-02-2021 End: 11-20-2024 take 1 tablet by mouth twice daily Start: 08-30-2015 End: 08-25-2021 take 2 tablets by mouth twice daily Buspirone 5 MG tablet Discontinued 10 mg PO TWICE A DAY August 30, 2015 12:00am August 25, 2021 3:53pm anxiety Start: 08-30-2015 End: 08-25-2021 take 10 mg by mouth twice daily Buspirone Discontinued 10 MG PO TWICE A DAY August 30, 2015 12:00am August 25, 2021 3:53pm Comment on above: Take 1 tablet by duy twice daily. Take 1 tablet by duy two times a day. Chondroitin Sulfates / Glucosamine (1 source) Start: 10-17-2024 take 900 mg by mouth once daily Glucosamine Chondroitin 900 mg, Oral, qDay, 0 Refill(s) Start Date: 10/17/24 Status: Ordered Coenzyme Q10 (1 source) Start: 10-17-2024 take 1 dose by mouth once daily Coenzyme Q10 Dose : 100 mg =, Oral, qDay Start Date: 10/17/24 Status: Ordered docusate sodium 50 mg / sennosides, [facility] 8.6 mg oral tablet (3 sources) Start: 10-13-2024 End: 11-02-2024 senna-docusate (SENNA-S) 8.6-50 mg per tablet Take by mouth. 10/13/2024 11/02/2024 Discontinued Start: 10-13-2024 take 1 tablet by duy twice daily docusate-senna 50 mg-8.6 mg oral tablet Dose = 2 tab(s), Oral, BID Start Date: 10/17/24 Status: Ordered donepezil hydrochloride 10 mg oral tablet (20 sources) Start: 10-28-2016 End: 11-20-2024 take 1 tablet by mouth at bedtime Comment on above: Take 1 tablet by duy th daily at bedtime. finasteride 5 mg oral tablet (20 sources) 5-alpha Reductase Inhibitor Start: 05-27-2020 take 1 tablet by mouth once daily Comment on above: Take 5 mg by mouth o nce daily. folic acid 1 mg oral tablet (20 sources) Start: 08-30-2015 End: 11-20-2024 take 1 tablet by mouth twice daily at mealtime Comment on above: Take 1 tablet by duy th twice daily. Take 1 tablet by duy th two times a day. glucosamine/msm/chond rt/C/hyal (GLUCOSAMINE-CHONDROI TIN-MSM ORAL) (20 sources) glucosamine/m sm/chondrt/C/ hyal (GLUCOSAMINE- CHONDROITIN-M SM ORAL) Take by mouth. Active glucosamine/msm/ chondrt/C/hyal ([id number]-[id number]-NQA ORAL) Take by mouth. 0 Active Comment on above: Take by mouth. lansoprazole 30 mg delayed release oral capsule (20 sources) Proton Pump Inhibitor Start: End: take 1 capsule by mouth twice daily before mealtime lansoprazole (PREVACID) 30 mg capsule Take 1 capsule by mouth two times a day. 1/2 hr before meal. 180 capsule 3 04/10/2025 Active Start: 08-30-2015 End: 07-12-2023 take 30 mg by mouth once daily Lansoprazole Active 30 MG PO DAILY August 30, 2015 12:00am Comment on above: Take 1 capsule by mo ut daily before breakfast. 1/2 hr before meal. Take 1 capsule by mo [facility] twice daily. 1/2 hr before meal. magnesium oxide 400 mg oral tablet (20 sources) Start: 01-10-2024 End: 04-10-2025 take 1 tablet by mouth once daily magnesium oxide (MAG-OX) 400 mg (241.3 mg magnesium) tablet Take 1 tablet by mouth once daily. 04/10/2025 Active Start: 05-27-2020 End: 01-10-2024 magnesium oxide 400 mg oral tablet Dose : 400 mg = 1 tab(s), Oral, BID Start Date: 10/17/24 Status: Ordered Start: 06-04-2019 End: 07-24-2019 take 1 tablet by mouth once daily at mealtime Magnesium Oxide 400 MG tablet Discontinued 400 mg PO DAILY WITH MEALS 30 0 June 04, 2019 12:00am July 24, 2019 11:38am Comment on above: Take 1 tablet by duy th twice daily. Take 1 tablet by duy th once daily. meloxicam 7.5 mg oral tablet (11 sources) Nonsteroidal Anti-inflammatory Drug Start: 10-13-2024 meloxicam (MOBIC) 7.5 mg tablet Take 7.5 mg by mouth. 10/13/2024 Active mesalamine 1200 mg delayed release oral tablet (20 sources) Aminosalicylate Start: 10-17-2024 mesalamine 1.2 g oral delayed release tablet Dose : 2.4 gram(s) = 2 tab(s), Oral, qDay, 0 Refill(s) Start Date: 10/17/24 Status: Ordered Start: 09-13-2024 take 2 tablets by mo [facility] twice daily Start: 11-25-2020 End: 11-20-2024 take 1 tablet by mouth twice daily Mesalamine 1.2 gram tablet,delayed release (DR/EC) Discontinued 1.2 g PO TWICE A DAY November 25, 2020 3:07pm March 20, 2022 3:42pm Start: 08-03-2019 End: 11-25-2020 take 2 tablets by mouth twice daily Mesalamine 1.2 gram tablet,delayed release (DR/EC) Discontinued 2.4 g PO TWICE A DAY August 03, 2019 12:00am November 25, 2020 3:09pm Start: 08-03-2019 End: 11-25-2020 take 2.4 g by mouth twice daily Mesalamine Discontinue d 2.4 GM PO TWICE A DAY August 03, 2019 12:00am November 25, 2020 3:09pm Start: 10-28-2016 End: 07-24-2019 Mesalamine 1.2 GM tablet Discontinued 1 {tbl} PO TWICE A DAY October 28, 2016 1:00am July 24, 2019 11:38am ulcerative colitis Start: 10-28-2016 End: 07-24-2019 take 1 tablet by mouth twice daily Mesalamine Discontinued 1 TABLET PO TWICE A DAY October 28, 2016 1:00am July 24, 2019 11:38am Comment on above: Take 1 tablet by duy th twice daily. Take 1 tablet by duy th two times a day. metoprolol tartrate 75 mg oral tablet (20 sources) beta-Adrenergic Izabella Start: 11-20-2024 take 1 tablet by mouth twice daily metoprolol tartrate, short acting, 75 mg tab Indications: Essential hypertension , PAF (paroxysmal atrial fibrillation) (HCC) Take 1 tablet by mouth two times a day. 180 tablet 3 11/20/2024 Active Start: 03-01-2023 End: 11-20-2024 take 1 tablet by mouth twice daily Start: 10-01-2022 End: 01-11-2023 take 1 tablet by mouth twice daily metoprolol tartrate, short acting, (LOPRESSOR) 50 mg tablet Indications: Essential hypertension , PAF (paroxysmal atrial fibrillation) (HCC) Take 1 tablet by mouth twice daily. 60 tablet 0 01/11/2023 Active Start: 10-28-2016 End: 03-20-2022 take 1 tablet by mouth twice daily Metoprolol Tartrate 50 MG tablet Discontinued 50 mg PO TWICE A DAY October 28, 2016 1:00am March 20, 2022 3:39pm Heart rate, blood pressur Comment on above: Take 1 tablet by duy th twice daily. montelukast 10 mg oral tablet (20 sources) Leukotriene Receptor Antagonist Start: 10-28-2016 End: 11-20-2024 take 1 tablet by mouth at bedtime Comment on above: Take 1 tablet by duy th daily at bedtime. Gqjdopkw-Dmh-Vg-Lycop en-Lutein (2 sources) Start: 08-30-2015 Hsotrrlu-Zqg-Kw- Lycopen-Lutein Active 1 EACH PO DAILY August 30, 2015 12:00am Ihqpbvzj-Ggc-Gn-Lycop en-Lutein 1 EACH tablet (1 source) Start: 08-30-2015 MV with Thk-Nheacwee-Gdnafk (CENTRUM SILVER) 0.4-300-250 mg-mcg-mcg tab (20 sources) Start: 11-24-2017 take 1 tablet by mouth once daily MV with Tes-Urwcnwgc-Nke ein (CENTRUM SILVER) 0.4-300-250 mg-mcg-mcg tab Take 1 tablet by mouth once daily. 11/24/2017 Active Start: 11-24-2017 take 1 tablet by duy th once daily MV with Kln-Odnluglr-Ktsdoo (CENTRUM SILVER) 0.4-300-250 mg-mcg-mcg tab Take 1 tablet by mouth once daily. 0 11/24/2017 Active Comment on above: Take 1 tablet by duy th once daily. POLYETHYLENE GLYCOL 3350 (1 source) Osmotic Laxative Start: 10-27-2024 polyethylene glycol 3350 Oral, qDay, 0 Refill(s) Start Date: 10/27/24 Status: Ordered primidone 250 mg oral tablet (16 sources) Anti-epileptic Agent Start: 03-20-2022 primidone 250 mg oral tablet Dose : 250 mg = 1 tab(s), Oral, BID Start Date: 10/17/24 Status: Ordered Start: 05-27-2020 End: 03-20-2022 take 1 tablet by mouth three times daily Primidone 250 mg tablet Discontinued 250 mg PO THREE TIMES A DAY May 27, 2020 12:00am March 20, 2022 3:44pm Start: 06-02-2019 End: 07-24-2019 take 1 tablet by mouth three times daily Primidone 250 MG tablet Discontinued 250 mg PO THREE TIMES A DAY June 02, 2019 12:00am July 24, 2019 11:39am seizure Start: 11-19-2017 End: 06-04-2019 take 1 tablet by mouth four times daily Primidone 50 MG tablet Discontinued 50 mg PO 4 TIMES DAILY June 02, 2019 12:00am June 04, 2019 10:32am seizure Start: 11-19-2017 End: 06-02-2019 take 25 mg by mouth at bedtime Primidone Discontinued 25 MG PO AT BEDTIME November 19, 2017 1:00am June 02, 2019 10:40am propranolol hydrochloride 40 mg oral tablet (20 sources) beta-Adrenergic Izabella Start: 02-14-2025 propra nolol (INDERAL) 40 mg tablet Take 1 tablet by mouth once daily. Take one (1) tablet daily at noon for one week and then stop completely. 7 tablet 02/14/2025 Active Start: 01-27-2022 End: 01-10-2024 take 1 tablet by mouth three times daily Start: 11-06-2021 End: 01-27-2022 take 1 tablet by mouth twice daily propranolol (INDERAL) 40 mg tablet Take 1 tablet by mouth twice daily. As directed 180 tablet 3 11/06/2021 01/27/2022 Discontinued Start: 07-24-2019 End: 08-03-2019 take 1 tablet by mouth three times daily Propranolol 40 mg tablet Discontinued 40 mg PO THREE TIMES A DAY July 24, 2019 12:00am August 03, 2019 1:53pm Start: 08-30-2015 End: 06-04-2019 take 1 tablet by mouth four times daily Propranolol 40 MG tablet Discontinued 40 mg PO 4 TIMES DAILY August 30, 2015 12:00am June 04, 2019 10:31am blood pressure Comment on above: Take 1 tablet by duy th three times daily. As directed Take 1 tablet by duy twice daily. As directed Take 1 tablet by duy th three times a day. As directed Senna Leaves (1 source) Start: 10-17-2024 Senna 8.6 mg oral tablet Dose : 8.6 mg = 1 tab(s), Oral, qDay, PRN as needed for constipation, # 100 tab(s), 0 Refill(s) Start Date: 10/17/24 Status: Ordered sennosides, [facility] 8.6 mg oral tablet (1 source) Start: 10-17-2024 take 1 tablet by mouth once daily sertraline 100 mg oral tablet (20 sources) Serotonin Reuptake Inhibitor Start: 10-17-2024 sertraline 100 mg oral tablet Dose : 200 mg = 2 tab(s), Oral, qDay Start Date: 10/17/24 Status: Ordered Start: 03-01-2023 End: 04-10-2025 take 2 tablets by mouth once daily sertraline (ZOLOFT) 100 mg tablet Indications: Major depressive disorder, single episode, mild Take 2 tablets by mouth once daily. 180 tablet 3 04/10/2025 Active Start: 08-30-2015 End: 04-30-2022 take 2 tablets by mouth once daily sertraline (ZOLOFT) 100 mg tablet Take 2 tablets by mouth once daily. 180 tablet 3 04/30/2022 Active Start: 08-30-2015 take 200 mg by mouth once bobby y Sertraline Active 200 MG PO DAILY August 30, 2015 12:00am Comment on above: Take 2 tablets by mo ut once daily. sucralfate 1000 mg oral tablet (20 sources) Aluminum Complex Start: 10-17-2024 sucralfate 1 g oral tablet Dose : 1 gram(s) = 1 tab(s), Oral, BID Start Date: 10/17/24 Status: Ordered Start: 05-27-2020 End: 12-10-2025 take 1 tablet by mouth twice daily Start: 08-30-2015 End: 07-24-2019 take 1 tablet by mouth twice daily Sucralfate 1 GM tablet Discontinued 1 g PO TWICE A DAY August 30, 2015 12:00am July 24, 2019 11:39am reduces stomach acid Comment on above: Take 1 tablet by duy th twice daily. Take 1 tablet by duy two times a day. tamsulosin hydrochloride 0.4 mg oral capsule (20 sources) alpha-Adrenergic Izabella Start: take 2 capsules by mouth once daily at bedtime tamsulosin (FLOMAX) 0.4 mg Indications: Benign prostatic hyperplasia with nocturia Take 2 capsules by mouth daily at bedtime. 180 capsule 3 04/10/2025 Active Start: 08-15-2023 End: 04-10-2025 take 1 capsule by mouth once daily Start: 11-15-2017 End: 07-27-2023 take 1 capsule by mouth at bedtime Tamsulosin 0.4 MG capsule Discontinued 0.4 mg PO AT BEDTIME November 15, 2017 1:00am March 20, 2022 3:44pm prostate Comment on above: Take 1 capsule by mo [facility] daily at bedtime. ubidecarenone 100 mg oral capsule (20 sources) Start: 07-18-2013 take 10 capsules by mouth once daily Comment on above: Take 1 capsule by mo ut. VIT C/E/ZN/COPPR/LUTEIN/GRACE THEA (PRESERVISION AREDS 2 ORAL) (20 sources) VIT C/E/ZN/COPPR/LUTE IN/ZEAXAN (PRESERVISION AREDS 2 ORAL) Take 2 capsules by mouth once daily. Active VIT C/E/ZN/COPPR /LUTEIN/ZEAXAN (PRESERVISION AREDS 2 ORAL) Take 2 capsules by mouth once daily. 0 Active Comment on above: Take 2 capsules by m [facility] once daily. vitamin b12 1 mg/ml oral solution (20 sources) Vitamin B12 Start: 08-30-2015 take 1000 ug by mouth once daily Start: 08-30-2015 take 1000 ug by mout h once daily Cyanocobalamin (Vitamin B-12) Active 1000 MCG PO DAILY August 30, 2015 12:00am Start: 07-18-2013 take 1 tablet by duy th once daily cyanocobalamin (VITAMIN B-12) 1,000 mcg tab Take 1 tablet by mouth once daily. 0 07/18/2013 Active Comment on above: Take 1 tablet by duy th once daily. Vitamin B12 500 mcg oral tablet (1 source) Start: 10-27-2024 Vitamin B12 500 mcg oral tablet Dose : 1,000 mcg = 2 tab(s), Oral, qDay, # 60 tab(s), 0 Refill(s), Pharmacy: [facility]/pharmacy #[id number], 180, cm, 10/17/24 17:21:00 EST, Height, kg, 10/17/24 18:07:00 EST, Dosing Weight Start Date: 10/27/24 Status: Ordered Vitamins A,C,Z-Etqo-Ejuucn (2 sources) Start: 08-30-2015 Vitamins A,C,S-Skqy-Nwfyje Active 2 EACH PO DAILY August 30, 2015 12:00am Vitamins A,C,A-Pbrw-Qypxov 1 EACH tablet,delayed release (DR/EC) (1 source) Start: 08-30-2015 take 1 tablet by mouth once daily Completed/Discontinued Medications Medication Drug Class(es) Dates Sig (Normalized) Sig (Original) 24 hr alfuzosin hydrochloride 10 mg extended release oral tablet (20 sources) alpha-Adrenergic Izabella Start: 04-12-2023 End: 07-12-2023 take 1 tablet by mouth once daily alfuzosin SR (UROXATRAL) 10 mg 24 hr tablet Take 1 tablet by mouth once daily. 90 tablet 3 04/12/2023 07/12/2023 Discontinued Start: 05-27-2020 End: 04-06-2023 take 1 tablet by mouth once daily at mealtime Alfuzosin 10 mg tablet extended release 24 hr Discontinued 10 mg PO DAILY May 27, 2020 12:00am March 20, 2022 3:40pm administer after the same meal each day Comment on above: Take 10 mg by mouth once daily. Take 1 tablet by duy th once daily. allopurinol 100 mg oral tablet (6 sources) Xanthine Oxidase Inhibitor Start: End: 1 take 1 tablet by mouth once daily as needed Allopurinol 100 mg tablet Discontinued 100 mg PO DAILY as needed for gout November 25, 2020 3:09pm August 25, 2021 3:56pm aspirin 81 mg delayed release oral tablet (8 sources) Platelet Aggregation Inhibitor, Nonsteroidal Anti-inflammatory Drug Start: 4 take 1 tablet by mouth twice daily Start: 10-13-2024 End: 11-16-2024 aspirin 81 mg oral delayed r elease tablet Dose : 81 mg = 1 tab(s), Oral, BID Start Date: 10/17/24 Stop Date: 10/25/24 Status: Ordered Start: 06-04-2019 End: 09-13-2024 take 1 tablet by mouth once daily Aspirin 81 MG tablet Discontinued 81 mg PO DAILY@0800 30 0 June 04, 2019 12:00am September 13, 2024 11:17am Beta Carotene 10,000 UNIT capsule (1 source) Start: 08-30-2015 End: 09-13-2024 take 1 capsule by mouth once daily Beta Carotene 10,000 UNIT capsule Discontinued 1 {tbl} PO DAILY August 30, 2015 12:00am September 13, 2024 11:12am supplement carbidopa 25 mg / levodopa 100 mg oral tablet (3 sources) Aromatic Amino Acid Decarboxylation Inhibitor, Aromatic Amino Acid Start: 08-25-2021 End: 03-20-2022 Carbidopa-Levodopa (Sinemet) 25-100 mg tablet Discontinued 1 {tbl} PO THREE TIMES A DAY August 25, 2021 12:00am March 20, 2022 3:41pm cholecalciferol 0.025 mg oral capsule (6 sources) Vitamin D Start: 05-27-2020 End: 08-25-2021 take 1 capsule by mouth once daily Cholecalciferol (Vitamin D3) 25 mcg (1,000 unit) capsule Discontinued 25 ug PO DAILY May 27, 2020 12:00am August 25, 2021 3:56pm Start: 07-24-2019 End: 05-27-2020 take 1 capsule by mouth once daily Cholecalciferol (Vitamin D3) 400 unit capsule Discontinued 400 U PO DAILY July 24, 2019 12:00am May 27, 2020 2:35pm ciprofloxacin 500 mg oral tablet (3 sources) Quinolone Antimicrobial Start: 06-04-2019 End: 07-24-2019 take 1 tablet by mouth twice daily Ciprofloxacin Hcl 500 MG tablet Discontinued 500 mg PO TWICE A DAY 6 0 June 04, 2019 12:00am July 24, 2019 11:38am clonazePAM 1 mg oral tablet (6 sources) Benzodiazepine Start: 08-30-2015 End: 06-28-2019 take 1 tablet by mouth twice daily as needed for anxiety Clonazepam 1 MG tablet Discontinued 1 mg PO TWICE DAILY NEEDED as needed for Anxiety November 15, 2017 1:00am November 19, 2017 7:17pm codeine phosphate 2 mg/ml / guaiFENesin 20 mg/ml oral solution (1 source) Opioid Agonist Start: 06-22-2022 End: 06-29-2022 take 5-10 mL by mouth four times daily as needed for cough codeine-guaiFENesi n (ROBITUSSIN AC) 10-100 mg/5 mL syrup Indications: Respiratory infection , Cough Take 5-10 mL by mouth four times daily as needed for cough for up to 7 days. May cause drowsiness. 120 mL 1 06/22/2022 06/29/2022 Comment on above: Take 5-10 mL by mout h four times daily as needed for cough for up to 7 days. May cause drowsiness. 12 hr dilTIAZem hydrochloride 120 mg extended release oral capsule (20 sources) Calcium Channel Izabella Start: 05-27-2020 End: 11-25-2020 take 1 capsule by mouth once daily Diltiazem Hcl 120 mg capsule,extended release 12 hr Discontinued 120 mg PO DAILY May 27, 2020 12:00am November 25, 2020 3:05pm Start: 06-04-2019 End: 11-20-2024 take 1 capsule by mouth once daily in the morning Start: 06-04-2019 End: 11-08-2019 take 1 capsule by mouth every twelve hours Diltiazem Hcl 120 MG capsule Discontinued 120 mg PO EVERY 12 HOURS 60 0 June 04, 2019 12:00am November 08, 2019 3:44pm doxycycline hyclate 100 mg oral tablet (4 sources) Tetracycline-class Drug Start: 06-22-2022 End: 07-02-2022 take 1 tablet by mouth twice daily doxycycline (VIBRA-TABS) 100 mg tablet Take 1 tablet by mouth twice daily for 10 days. 20 tablet 0 06/22/2022 07/02/2022 Comment on above: Take 1 tablet by duy th twice daily for 10 days. fluticasone propionate 0.05 mg/actuat metered dose nasal spray (1 source) Corticosteroid Start: 06-13-2024 End: 09-13-2024 Fluticasone Propionate 50 mcg/actuation spray,suspension Discontinued 2 NMA INTRANASAL DAILY June 13, 2024 12:00am September 13, 2024 11:18am lamoTRIgine 25 mg oral tablet (3 sources) Mood Stabilizer, Anti-epileptic Agent Start: 10-28-2016 End: 11-19-2017 take 1 tablet by mouth once daily Lamotrigine 25 MG tablet Discontinued 25 mg PO DAILY October 28, 2016 1:00am November 19, 2017 7:21pm tremors lisinopril 5 mg oral tablet (16 sources) Angiotensin Converting Enzyme Inhibitor Start: 11-08-2019 End: 08-05-2021 take 1 tablet by mouth once daily Lisinopril 5 mg tablet Discontinued 5 mg PO DAILY 90 3 June 12, 2020 11:57am August 05, 2021 11:40am methotrexate 2.5 mg oral tablet (3 sources) Folate Analog Metabolic Inhibitor Start: 11-15-2017 End: 07-24-2019 Methotrexate Sodium 2.5 MG tablet Discontinued 15 mg PO EVERY WEEK November 15, 2017 1:00am July 24, 2019 11:37am arthritis every wednesday Start: 11-15-2017 End: 07-24-2019 take 15 mg by mouth every week Methotrexate Sodium Dis continued 15 MG PO EVERY WEEK November 15, 2017 1:00am July 24, 2019 11:37am every esperanza [facility] Medication (4 sources) Start: 10-17-2024 [facility] Medicatio n Vitamins A,C, X-mfxo-cvzyqh ER 1 tablet, Oral, Daily, 0 Refill(s), 94 Start Date: 10/17/24 Status: Ordered Start: 10-17-2024 [facility] Medicatio n cyanocobalamin 1000 mcg/ml drops - 1000 mcg, Oral, Daily, 0 Refill(s), 94 Start Date: 10/17/24 Status: Ordered Start: 10-17-2024 [facility] Medicatio n bprobiax-qbl-XZ-lycopen-lutein 1 tab, Oral, Daily, 0 Refill(s), 94 Start Date: 10/17/24 Status: Ordered Start: 10-17-2024 [facility] Medicatio n diltiazem HCL 120 mg/24 hr, Oral, qAM, 0 Refill(s), 94 Start Date: 10/17/24 Status: Ordered oxyCODONE hydrochloride 5 mg oral tablet (3 sources) Opioid Agonist Start: 10-17-2024 End: 10-24-2024 oxyCODONE 5 mg oral tablet ( IMMEDIATE release ) 1-2 tabs, Oral, q4h, PRN for pain, for pain 4-6, 0 Refill(s), 94 Start Date: 10/17/24 Stop Date: 10/24/24 Status: Ordered Start: 10-13-2024 take 5-10 mg by mouth once as needed for pain phenazopyridine hydrochloride 100 mg oral tablet (3 sources) Start: 06-02-2019 End: 07-24-2019 take 1 tablet by mouth three times daily as needed for pain Phenazopyridine 100 MG tablet Discontinued 100 mg PO THREE TIMES A DAY as needed for urinary pain June 02, 2019 12:00am July 24, 2019 11:39am prazosin 2 mg oral capsule (3 sources) alpha-Adrenergic Izabella Start: 07-12-2023 take 1 capsule by mouth twice daily prazosin (MINIPRESS) 2 mg cap Take 1 capsule by mouth twice daily. 90 capsule 3 07/12/2023 Active Comment on above: Take 1 capsule by [facility] twice daily. rifAMPin 300 mg oral capsule (6 sources) Rifamycin Antibacterial Start: 11-19-2017 End: 06-04-2019 take 1 capsule by mouth twice daily Rifampin 300 MG capsule Discontinued 300 mg PO TWICE A DAY June 02, 2019 10:40am June 04, 2019 10:32am Antibiotic sulfamethoxazole 800 mg / trimethoprim 160 mg oral tablet (3 sources) Dihydrofolate Reductase Inhibitor Antibacterial, Sulfonamide Antimicrobial Start: 11-19-2017 End: 06-02-2019 Sulfamethoxazole-Tr imethoprim 1 TABLET tablet Discontinued 1 {tbl} PO TWICE A DAY November 19, 2017 1:00am June 02, 2019 10:40am Start: 11-19-2017 End: 06-02-2019 take 1 tablet by mouth twice daily Sulfamethoxazole-Trimethoprim Discontinu ed 1 TABLET PO TWICE A DAY November 19, 2017 1:00am June 02, 2019 10:40am Problems Active Problems Problem Classification Problem Date Documented Date Episodic/Chronic Acute bronchitis (3 sources) Acute bronchitis; Translations: [Acute bronchitis, unspecified] 08-24-2021 Episodic Administrative/social admission (1 source) Needs assistance at home; Translations: [Need for assistance with personal care] Episodic Anxiety disorders (20 sources) Anxiety; Translations: [Anxiety disorder, unspecified] Onset: 7 10-31-2017 Chronic Asthma (20 sources) Uncomplicated moderate persistent asthma; Translations: [Moderate persistent asthma, uncomplicated] Onset: 9 04-02-2019 Chronic Bacterial infection; unspecified site (3 sources) Community-acquired methicillin-resistant Staphylococcus aureus infection; Translations: [Methicillin resistant Staphylococcus aureus infection, unspecified site] 08-24-2021 Episodic Cardiac dysrhythmias (20 sources) Paroxysmal atrial fibrillation; Translations: [Paroxysmal atrial fibrillation] Onset: 1 Resolved: 1 05-24-2011 Chronic Cardiac dysrhythmias (1 source) Intermittent palpitations; Translations: [Palpitations] Episodic Chronic obstructive pulmonary disease and bronchiectasis (20 sources) Chronic bronchitis; Translations: [Unspecified chronic bronchitis] Onset: 3 Chronic Coagulation and hemorrhagic disorders (20 sources) Chronic idiopathic thrombocytopenic purpura; Translations: [Immune thrombocytopenic purpura] Onset: 2 07-25-2012 Chronic Delirium, dementia, and amnestic and other cognitive disorders (6 sources) Dementia; Translations: [Unspecified dementia without behavioral disturbance] Onset: 5 06-28-2019 Chronic Disorders of lipid metabolism (20 sources) Mixed hyperlipidemia; Translations: [Mixed hyperlipidemia] Onset: 9 Chronic Diverticulosis and diverticulitis (20 sources) Diverticulosis of colon; Translations: [Diverticulosis of large intestine without perforation or abscess without bleeding] Onset: 7 2007 Chronic E Codes: Fall (1 source) Accidental fall ; Translations: [Unspecified fall, initial encounter] 06-22-2024 Episodic Esophageal disorders (1 source) Gastro-esophageal reflux disease without esophagitis; Translations: [Gastroesophageal reflux disease, unspecified whether esophagitis present] Onset: 5 Chronic Essential hypertension (20 sources) Essential hypertension; Translations: [Essential (primary) hypertension] Onset: 9 Chronic Genitourinary symptoms and ill-defined conditions (1 source) Device in situ; Translations: [Presence of urogenital implants] Chronic Hyperplasia of prostate (20 sources) Benign prostatic hyperplasia; Translations: [Benign prostatic hyperplasia with lower urinary tract symptoms] Onset: 7 09-08-2019 Chronic Malaise and fatigue (2 sources) Fatigue; Translations: [Other fatigue] Episodic Mood disorders (20 sources) Dysthymia; Translations: [Dysthymic disorder] Onset: 6 09-09-2016 Chronic Nutritional deficiencies (20 sources) Vitamin D deficiency; Translations: [Vitamin D deficiency, unspecified] Onset: 3 Chronic Osteoarthritis (20 sources) Localized osteoarthrosis; Translations: [Unilateral primary osteoarthritis, unspecified knee] Onset: 8 11-04-2016 Chronic Other aftercare (1 source) Follow-up orthopedic assessment; Translations: [Aftercare following joint replacement surgery] Chronic Other aftercare (2 sources) Aftercare following joint replacement surgery; Translations: [Aftercare following joint replacement surgery] Onset: 4 Chronic Other aftercare (2 sources) Long-term current use of drug therapy; Translations: [Other usp (current) drug therapy] 07-03-2024 Episodic Other aftercare (1 source) Long-term current use of aspirin; Translations: [alf (current) use of aspirin] Episodic Other aftercare (1 source) Other usp (current) drug therapy; Translations: [Encounter for long-term current use of medication] Onset: 5 Episodic Other connective tissue disease (20 sources) History of total knee arthroplasty; Translations: [Presence of unspecified artificial knee joint] Onset: 3 09-07-2013 Chronic Comment on above: LEFT, 2012 Other connective tissue disease (1 source) Shoulder joint prosthesis present; Translations: [Presence of unspecified artificial shoulder joint] Onset: 4 Chronic Other connective tissue disease (2 sources) History of left shoulder arthroplasty; Translations: [Presence of left artificial shoulder joint] Chronic Other connective tissue disease (1 source) History of reverse prosthetic total arthroplasty of left shoulder; Translations: [Presence of left artificial shoulder joint] 10-25-2024 Chronic Other connective tissue disease (1 source) Presence of left artificial shoulder joint; Translations: [S/P shoulder replacement, left] Onset: 4 Chronic Other connective tissue disease (3 sources) Rhabdomyolysis; Translations: [Rhabdomyolysis] 06-28-2019 Episodic Other connective tissue disease (1 source) Pain of bilateral hands; Translations: [Pain in right hand] 02-17-2024 Episodic Other diseases of bladder and urethra (20 sources) Bladder neck obstruction; Translations: [Bladder-neck obstruction] Onset: 7 07-05-2007 Chronic Other ear and sense organ disorders (1 source) Hearing loss of right ear; Translations: [Unspecified hearing loss, right ear] 07-13-2023 Chronic Other ear and sense organ disorders (1 source) Impacted cerumen of bilateral ears; Translations: [Impacted cerumen, bilateral] 07-12-2023 Episodic Other endocrine disorders (20 sources) Testicular hypofunction; Translations: [Testicular hypofunction] Onset: 9 01-21-2009 Chronic Other gastrointestinal disorders (20 sources) Irritable bowel syndrome; Translations: [Irritable bowel syndrome without diarrhea] Onset: 1 02-16-2011 Chronic Other gastrointestinal disorders (1 source) Dysphagia, unspecified; Translations: [Dysphagia, unspecified] Onset: 5 Episodic Other gastrointestinal disorders (1 source) Dysphagia, pharyngoesophageal phase; Translations: [Pharyngoesophageal dysphagia] Onset: 5 Episodic Other hereditary and degenerative nervous system conditions (20 sources) Essential tremor; Translations: [Essential tremor] Onset: 9 Chronic Other hereditary and degenerative nervous system conditions (1 source) Tremor; Translations: [Other specified forms of tremor] Chronic Other liver diseases (3 sources) Cardiac enzymes abnormal; Translations: [Abnormal levels of other serum enzymes] 06-28-2019 Episodic Other lower respiratory disease (5 sources) Cough; Translations: [Acute cough] Episodic Other lower respiratory disease (2 sources) Dyspnea on exertion; Translations: [Other forms of dyspnea] Episodic Other lower respiratory disease (1 source) Respiratory tract infection; Translations: [Other specified respiratory disorders] Episodic Other lower respiratory disease (5 sources) Chronic cough; Translations: [Chronic cough] Episodic Other male genital disorders (20 sources) Secondary erectile dysfunction; Translations: [Male erectile dysfunction, unspecified] Onset: 7 07-05-2007 Chronic Other nervous system disorders (20 sources) Carpal tunnel syndrome; Translations: [Carpal tunnel syndrome, unspecified upper limb] Onset: 6 01-07-2006 Chronic Other nervous system disorders (20 sources) Ulnar neuropathy; Translations: [Lesion of ulnar nerve, unspecified upper limb] Onset: 2 08-16-2012 Chronic Other nervous system disorders (1 source) Finding of hand region; Translations: [Tremor, unspecified] 02-17-2024 Episodic Other nervous system disorders (1 source) Abnormal gait; Translations: [Unspecified abnormalities of gait and mobility] Episodic Other non-traumatic joint disorders (1 source) Undifferentiated inflammatory polyarthritis; Translations: [Polyarthritis, unspecified] Chronic Other non-traumatic joint disorders (1 source) Other specified arthritis, left shoulder; Translations: [Other specified arthritis, left shoulder] Onset: 5 Chronic Other non-traumatic joint disorders (1 source) Chronic pain of left upper limb; Translations: [Pain in left shoulder] 09-25-2024 Episodic Other nutritional; endocrine; and metabolic disorders (20 sources) Metabolic syndrome X; Translations: [Metabolic syndrome] Onset: 1 02-16-2011 Chronic Other nutritional; endocrine; and metabolic disorders (20 sources) Hypomagnesemia; Translations: [Hypomagnesemia] Onset: 3 11-05-2023 Chronic Other nutritional; endocrine; and metabolic disorders (1 source) Hypomagnesemia; Translations: [Hypomagnesemia] Onset: 3 Chronic Other upper respiratory disease (20 sources) Allergic rhinitis; Translations: [Other allergic rhinitis] Onset: 9 04-02-2019 Chronic Regional enteritis and ulcerative colitis (20 sources) Crohn's disease; Translations: [Crohn's disease, unspecified, without complications] Onset: 5 10-12-2015 Chronic Residual codes; unclassified (4 sources) Impaired exercise tolerance; Translations: [Other general symptoms and signs] Episodic Residual codes; unclassified (1 source) History of operative procedure on shoulder 10-25-2024 Episodic Residual codes; unclassified (1 source) H/O: urinary disease; Translations: [Personal history of other specified conditions] 11-02-2024 Episodic Retinal detachments; defects; vascular occlusion; and retinopathy (20 sources) Degenerative disorder of macula ; Translations: [Unspecified macular degeneration] Onset: 4 08-02-2014 Chronic Spondylosis; intervertebral disc disorders; other back problems (20 sources) Degeneration of lumbar intervertebral disc; Translations: [Other intervertebral disc degeneration, lumbar region] Onset: 9 04-02-2019 Chronic Viral infection (2 sources) Viral disease; Translations: [Viral infection, unspecified] Episodic Past or Other Problems Problem Classification Problem Date Documented Da te Episodic/Chronic Abdominal hernia (20 sources) Inguinal hernia; Translations: [Unilateral inguinal hernia, without obstruction or gangrene, not specified as recurrent] Onset: 5 07-16-2005 Episodic Allergic reactions (20 sources) Chronic urticaria; Translations: [Other urticaria] Onset: 5 11-25-2015 Episodic Conditions associated with dizziness or vertigo (20 sources) Dizziness; Translations: [Dizziness and giddiness] Onset: 0 11-24-2021 Episodic Diabetes mellitus without complication (20 sources) Hyperglycemia; Translations: [Impaired fasting glucose] Onset: 3 Episodic Gastrointestinal hemorrhage (20 sources) Gastrointestinal hemorrhage; Translations: [Gastrointestinal hemorrhage, unspecified] Onset: 5 07-16-2005 Episodic Genitourinary symptoms and ill-defined conditions (20 sources) Retention of urine; Translations: [Retention of urine, unspecified] Onset: 9 09-20-2009 Episodic Headache; including migraine (20 sources) Headache; Translations: [Chronic nonintractable headache] Onset: 6 09-09-2016 Episodic Immunizations and screening for infectious disease (10 sources) Patient encounter status; Translations: [Encounter for immunization] Onset: 4 Episodic Joint disorders and dislocations; trauma-related (3 sources) Anterior dislocation of shoulder joint; Translations: [Anterior dislocation of left humerus, subsequent encounter] Onset: 4 06-15-2024 Episodic Other aftercare (1 source) Encounter for therapeutic drug level monitoring; Translations: [Encounter for therapeutic drug level monitoring] Onset: 4 Episodic Other and unspecified benign neoplasm (20 sources) Benign neoplasm of rectum and anal canal; Translations: [Benign neoplasm of rectum] Onset: 5 07-16-2005 Episodic Other connective tissue disease (20 sources) Bursitis of hip; Translations: [Trochanteric bursitis, unspecified hip] Onset: 2 04-26-2012 Episodic Other diseases of bladder and urethra (20 sources) Urethral stricture; Translations: [Unspecified urethral stricture, male, unspecified site] Onset: 0 01-30-2010 Episodic Other gastrointestinal disorders (20 sources) Esophageal dysphagia; Translations: [Other dysphagia] Onset: 3 Episodic Other injuries and conditions due to external causes (20 sources) Injury of ulnar nerve; Translations: [Injury of ulnar nerve at forearm level, unspecified arm, initial encounter] Onset: 6 05-13-2006 Episodic Other upper respiratory disease (20 sources) Nasal congestion; Translations: [Nasal congestion] Onset: 2 10-09-2012 Episodic Parkinson`s disease (20 sources) Parkinson's disease; Translations: [Parkinson's disease] Onset: 5 Resolved: 4 04-15-2020 Chronic Pneumonia (except that caused by tuberculosis or sexually transmitted disease) (20 sources) Pneumonia; Translations: [Pneumonia, unspecified organism] Onset: 1 Resolved: 4 08-22-2014 Episodic Spondylosis; intervertebral disc disorders; other back problems (20 sources) Sciatica; Translations: [Sciatica, unspecified side] Onset: 2 04-26-2012 Episodic Urinary tract infections (20 sources) Lower urinary tract infectious disease; Translations: [Urinary tract infection, site not specified] Onset: 0 Resolved: 4 08-22-2014 Episodic Results Test Name Value Interpretation Reference Range Facility 25(OH)D3 Elliot 2024 25-hydroxyvitamin D3 [Mass/Vol] 57.5 ng/mL Normal 31.0-80.0 [facility] Comment on above: Order Comment: Speci men Type: BLOOD SPECIMENOrdering Facility: [facility] Address: [address] [place] [address] Performed By: #### 1 989-3 ####[facility] [id number] [place] [address] [place] CBC panel Auto (Bld)on 10-04 Erythrocyte distribution width (RBC) [Ratio] 15.8 % High 11.5-15.0 [facility] Comment on above: Order Comment: Speci men Type: BLOOD SPECIMENOrdering Facility: [facility] Address: [address] [place] [address] Performed By: #### 5 8410-2 ####[facility] [id number] [place] [address] [place] Hematocrit (Bld) [Volume fraction] 44.4 % Normal 39.0-51.0 [facility] Comment on above: Order Comment: Speci men Type: BLOOD SPECIMENOrdering Facility: [facility] Address: [address] [place] [address] Performed By: #### 5 8410-2 ####[facility] [id number] [place] [address] [place] Hemoglobin (Bld) [Mass/Vol] 13.6 g/dL Normal 13.0-17.0 [facility] Comment on above: Order Comment: Speci men Type: BLOOD SPECIMENOrdering Facility: [facility] Address: [address] [place] [address] Performed By: #### 5 8410-2 ####[facility] [id number] [place] [address] [place] MCH (RBC) [Entitic mass] 27.6 pg Normal 26.0-34.0 [facility] Comment on above: Order Comment: Speci men Type: BLOOD SPECIMENOrdering Facility: [facility] Address: [address] [place] [address] Performed By: #### 5 8410-2 ####[facility] [id number] [place] [address] [place] MCHC (RBC) [Mass/Vol] 30.6 g/dL Normal 30.5-36.0 [facility] Comment on above: Order Comment: Speci men Type: BLOOD SPECIMENOrdering Facility: [facility] Address: [address] [place] [address] Performed By: #### 5 8410-2 ####[facility] [id number] [place] [address] [place] MCV (RBC) [Entitic vol] 90.1 fL Normal 80.0-100.0 [facility] Comment on above: Order Comment: Speci men Type: BLOOD SPECIMENOrdering Facility: [facility] Address: [address] [place] [address] Performed By: #### 5 8410-2 ####[facility] [id number] [place] [address] [place] Nucleated RBC (Bld) [#/Vol] 10*3/uL Normal <0.01 [facility] Comment on above: Order Comment: Speci men Type: BLOOD SPECIMENOrdering Facility: [facility] Address: [address] [place] [address] Performed By: #### 5 8410-2 ####[facility] [id number] [place] [address] [place] Platelet mean volume (Bld) [Entitic vol] 11.1 fL Normal 9.0-12.7 [facility] Comment on above: Order Comment: Speci men Type: BLOOD SPECIMENOrdering Facility: [facility] Address: [address] [place] [address] Performed By: #### 5 8410-2 ####[facility] [id number] [place] [address] [place] Platelets (Bld) [#/Vol] 148 10*3/uL Low 150-400 [facility] Comment on above: Order Comment: Speci men Type: BLOOD SPECIMENOrdering Facility: [facility] Address: [address] [place] [address] Performed By: #### 5 8410-2 ####[facility] [id number] [place] [address] [place] RBC (Bld) [#/Vol] 4.93 10*6/uL Normal 4.20-6.00 [facility] Comment on above: Order Comment: Speci men Type: BLOOD SPECIMENOrdering Facility: [facility] Address: [address] [place] [address] Performed By: #### 5 8410-2 ####[facility] [id number] [address] STATES OF [facility] WBC (Bld) [#/Vol] 7.97 10*3/uL Normal 3.70-11.00 [facility] Comment on above: Order Comment: Speci men Type: BLOOD SPECIMENOrdering Facility: [facility] Address: [address] [place] [address] Performed By: #### 5 8410-2 ####[facility] [id number] [place] [address] [place] Comprehensive metabolic 2000 panelon 10-04-2025 Albumin [Mass/Vol] 4.2 g/dL Normal 3.9-4.9 [facility] Comment on above: Order Comment: Speci men Type: BLOOD SPECIMENOrdering Facility: [facility] Address: [address] [place] [address] Performed By: #### 1 9123-9, 00778-8, 25943-3 ####[facility] [id number] [place] [address] [place] ALP [Catalytic activity/Vol] 106 U/L Normal 38-113 [facility] Comment on above: Order Comment: Speci men Type: BLOOD SPECIMENOrdering Facility: [facility] Address: [address] [place] [address] Performed By: #### 1 9123-9, 91169-1, 07504-7 ####[facility] [id number] [place] [address] [place] ALT [Catalytic activity/Vol] 10 U/L Normal 10-54 [facility] Comment on above: Order Comment: Speci men Type: BLOOD SPECIMENOrdering Facility: [facility] Address: [address] [place] [address] Performed By: #### 1 9123-9, 12045-7, 48271-0 ####[facility] [id number] [place] [address] [place] Anion gap [Moles/Vol] 11 mmol/L Normal 8-15 [facility] Comment on above: Order Comment: Speci men Type: BLOOD SPECIMENOrdering Facility: [facility] Address: [address] [place] [address] Performed By: #### 1 9123-9, 32431-1, 33947-5 ####[facility] [id number] [place] [address] [place] AST [Catalytic activity/Vol] 18 U/L Normal 14-40 [facility] Comment on above: Order Comment: Speci men Type: BLOOD SPECIMENOrdering Facility: [facility] Address: [address] [place] [address] Performed By: #### 1 9123-9, 77442-7, 15122-2 ####[facility] [id number] [place] [address] [place] Bilirubin [Mass/Vol] 0.7 mg/dL Normal 0.2-1.3 [facility] Comment on above: Order Comment: Speci men Type: BLOOD SPECIMENOrdering Facility: [facility] Address: [address] [place] [address] Performed By: #### 1 9123-9, 79173-5, 53470-1 ####[facility] [id number] [place] [address] [place] Calcium [Mass/Vol] 9.4 mg/dL Normal 8.5-10.2 [facility] Comment on above: Order Comment: Speci men Type: BLOOD SPECIMENOrdering Facility: [facility] Address: [address] [place] [address] Performed By: #### 1 23-9, 75315-7, 28437-5 ####[facility] [id number] [place] [address] [place] Chloride [Moles/Vol] 103 mmol/L Normal 98-107 [facility] Comment on above: Order Comment: Speci men Type: BLOOD SPECIMENOrdering Facility: [facility] Address: [address] [place] [address] Performed By: #### 1 23-9, 59363-4, 94236-9 ####[facility] [id number] [place] [address] [place] CO2 [Moles/Vol] 26 mmol/L Normal 22-30 [facility] Comment on above: Order Comment: Speci men Type: BLOOD SPECIMENOrdering Facility: [facility] Address: [address] [place] [address] Performed By: #### 1 23-9, 57097-4, 50527-1 ####[facility] [id number] [place] [address] [place] Creatinine [Mass/Vol] 1.08 mg/dL Normal 0.73-1.22 [facility] Comment on above: Order Comment: Speci men Type: BLOOD SPECIMENOrdering Facility: [facility] Address: [address] [place] [address] Performed By: #### 1 23-9, 44040-5, 94918-2 ####[facility] [id number] [place] [address] [place] eGFRcr SerPlBld CKD-EPI 2020 68 mL/min/1.73m??? Normal >=60 [facility] Comment on above: Order Comment: Katty villasenor Type: BLOOD SPECIMENOrdering Facility: [facility] Address: [address] [place] [address] Result Comment: Sammie mated Glomerular Filtration Rate (eGFR) is calculated using the 2020 CKD-EPI creatinine equation. This equation utilizes serum creatinine, sex, and age as parameters. The creatinine assay has traceable calibration to isotope dilution-mass spectrometry. Refer to KDIGO guidelines for clinical interpretation. In patients with unstable renal function, e.g. those with acute kidney injury, the eGFR may not accurately reflect actual GFR. Performed By: #### 1 9123-9, 37892-1, ####[facility] [id number] [place] [address] [place] Glucose [Mass/Vol] 109 mg/dL High 74-99 [facility] Comment on above: Order Comment: Katty villasenor Type: BLOOD SPECIMENOrdering Facility: [facility] Address: [address] [place] [address] Result Comment: The [place] Diabetes Association (ADA) provides guidance for cutoff values for fasting glucose and random glucose. The ADA defines fasting as no caloric intake for at least 8 hours. Fasting plasma glucose results between 100 to 125 mg/dL indicate increased risk for diabetes (prediabetes). Fasting plasma glucose results greater than or equal to 126 mg/dL meet the criteria for diagnosis of diabetes. In the absence of unequivocal hyperglycemia, results should be confirmed by repeat testing. In a patient with classic symptoms of hyperglycemia or hyperglycemic crisis, random plasma glucose results greater than or equal to 200 mg/dL meet the criteria for diagnosis of diabetes. Reference: Standards of Medical Care in Diabetes 2016, [place] Diabetes Association. Diabetes Care. 2016.39(Suppl 1). Performed By: #### 1 9123-9, 48797-2, 53948-1 ####[facility] [id number] [place] [address] [place] Potassium [Moles/Vol] 4.7 mmol/L Normal 3.7-5.1 [facility] Comment on above: Order Comment: Speci men Type: BLOOD SPECIMENOrdering Facility: [facility] Address: [address] [place] [address] Performed By: #### 1 9123-9, 54380-2, 96705-3 ####[facility] [id number] [place] [address] [place] Protein [Mass/Vol] 7.2 g/dL Normal 6.3-8.0 [facility] Comment on above: Order Comment: Speci men Type: BLOOD SPECIMENOrdering Facility: [facility] Address: [address] [place] [address] Performed By: #### 1 9123-9, 26734-5, 82198-1 ####[facility] [id number] [place] [address] [place] Sodium [Moles/Vol] 140 mmol/L Normal 136-144 [facility] Comment on above: Order Comment: Speci men Type: BLOOD SPECIMENOrdering Facility: [facility] Address: [address] [place] [address] Performed By: #### 1 9123-9, 39795-3, 86526-0 ####[facility] [id number] [place] [address] [place] Urea nitrogen [Mass/Vol] 21 mg/dL Normal 9-24 [facility] Comment on above: Order Comment: Speci men Type: BLOOD SPECIMENOrdering Facility: [facility] Address: [address] [place] [address] Performed By: #### 1 9123-9, 29224-9, 47286-1 ####[facility] [id number] [place] [address] [place] HbA1c (Bld)on 10-04-2025 Average glucose Estimated from glycated hemoglobin (Bld) [Mass/Vol] 105 mg/dL Normal [facility] Comment on above: Order Comment: Katty men Type: BLOOD SPECIMENOrdering Facility: [facility] Address: [address] [place] [address] Result Comment: eAG: (Estimated average glucose) is a calculated value from HgbA1c and is route service representative of the average blood glucose level in the last 2-3 month period. Performed By: #### 5 5454-3 ####[facility] [id number] [place] [address] [place] HbA1c (Bld) [Mass fraction] 5.3 % Normal 4.3-5.6 [facility] Comment on above: Order Comment: Katty jacklyn Type: BLOOD SPECIMENOrdering Facility: [facility] Address: [address] [place] [address] Result Comment: [place] Diabetes Association guidelines indicate that patients with HgbA1c in the range 5.7-6.4% are at increased risk for development of diabetes, and intervention by lifestyle modification may be beneficial. HgbA1c greater or equal to 6.5% is considered diagnostic of diabetes. Performed By: #### 5 5454-3 ####[facility] [id number] [place] [address] [place] Lipid 1996 panelon 5 Cholesterol [Mass/Vol] 174 mg/dL Normal <200 [facility] Comment on above: Order Comment: Katty jacklyn Type: BLOOD SPECIMENOrdering Facility: [facility] Address: [address] [place] [address] Result Comment: <200 mg/dL, Desirable 200-239 mg/dL, Borderline high >239 mg/dL, High Performed By: #### 1 9123-9, 71052-7, 97834-8 ####[facility] [id number] [address] [place] Cholesterol in HDL [Mass/Vol] 34 mg/dL Low >39 [facility] Comment on above: Order Comment: Katty jacklyn Type: BLOOD SPECIMENOrdering Facility: [facility] Address: [address] [place] [address] Result Comment: 40-5 9 mg/dL, Acceptable >59 mg/dL, High: Negative risk factor for coronary heart disease <40 mg/dL, Low: Positive risk factor for coronary heart disease Performed By: #### 1 23-9, , ####[facility] [id number] [place] [address] [place] Cholesterol in LDL [Mass/Vol] 110 mg/dL High <100 [facility] Comment on above: Order Comment: Speci men Type: BLOOD SPECIMENOrdering Facility: [facility] Address: [address] [place] [address] Result Comment: <100 mg/dL, Optimal 100-129 mg/dL, Near optimal/above optimal 130-159 mg/dL, Borderline high 160-189 mg/dL, High >189 mg/dL, Very high Secondary prevention optimal LDL Cholesterol levels are recommended to be <70 mg/dL LDL cholesterol is calculated using the Levine-NIH equation. Performed By: #### 1 23-9, , ####[facility] [id number] [place] [address] [place] Cholesterol in LDL/Cholesterol in HDL [Mass ratio] 3.24 {ratio} High <2.54 [facility] Comment on above: Order Comment: Speci men Type: BLOOD SPECIMENOrdering Facility: [facility] Address: [address] [place] [address] Result Comment: Jim jc: 1. National Cholesterol Education Program ATP III Guideline At-A-Glance Quick Desk Reference: National Heart, Lung, and Blood [place]. National Institutes of Health. 2001: NIH Publication No. 01-3305. 2. An International Atherosclerosis Society position paper: global recommendations for the management of dyslipidemia: executive summary, Atherosclerosis. 2014: 232(2):410-413. Performed By: #### 1 9123-9, , ####[facility] [id number] [place] [id number] [place] Cholesterol in VLDL [Mass/Vol] 29 mg/dL Normal <30 [facility] Comment on above: Order Comment: Speci men Type: BLOOD SPECIMENOrdering Facility: [facility] Address: [address] [place] [address] Performed By: #### 1 23-9, 33893-6, 72877-4 ####[facility] [id number] [place] [address] [place] Cholesterol non HDL [Mass/Vol] 140 mg/dL High <130 [facility] Comment on above: Order Comment: Speci men Type: BLOOD SPECIMENOrdering Facility: [facility] Address: [address] [place] [address] Result Comment: <130 mg/dL, Optimal 130-159 mg/dL, Near optimal/above optimal 160-189 mg/dL, Borderline high 190-219 mg/dL, High >219 mg/dL, Very high Secondary prevention optimal non HDL Cholesterol levels are recommended to be <100 mg/dL Performed By: #### 1 9, , 64626-0 ####[facility] [id number] [place] [address] [place] Cholesterol.total/Cho lesterol in HDL [Mass ratio] 5.12 {ratio} High <5.10 [facility] Comment on above: Order Comment: Speci men Type: BLOOD SPECIMENOrdering Facility: [facility] Address: [address] [place] [address] Performed By: #### 1 239, , ####[facility] [id number] [place] [address] [place] FASTING TIME 12 hrs Normal [facility] Comment on above: Order Comment: Speci men Type: BLOOD SPECIMENOrdering Facility: [facility] Address: [address] [place] [address] Performed By: #### 1 9123-9, , 30994-7 ####[facility] [id number] [place] [address] [place] Triglyceride [Mass/Vol] 172 mg/dL High <150 [facility] Comment on above: Order Comment: Speci men Type: BLOOD SPECIMENOrdering Facility: [facility] Address: [address] [place] [address] Result Comment: <150 mg/dL, Normal 150-199 mg/dL, Borderline high 200-499 mg/dL, High >499 mg/dL, Very high Performed By: #### 1 9123-9, 27987-3, 00099-6 ####[facility] [id number] [place] [address] [place] Magnesium SerPl-mCncon 10-04 Magnesium [Mass/Vol] 2.4 mg/dL High 1.7-2.3 [facility] Comment on above: Order Comment: Speci men Type: BLOOD SPECIMENOrdering Facility: [facility] Address: [address] [place] [address] Performed By: #### 1 9123-9, 34007-3, 88965-8 ####[facility] [id number] [place] [address] [place] Esophagus Dual Contraston Esophagus Dual Contrast [facility] [address] [place] [address] [id number] Esophagus Dual Contrast MR#: [id number] Acct: [id number] Name: JAQUIEVELIA Jr. Rep #: [id number] : 1940 84 From: Fabian sheikh MD PCP: Dr. Laila Ramos MD Status: REG CLI Study: Esophagus Dual Contrast Date of Exam: 08/03/25 Exam# [id number] Ordering Dr: Chad Mcnamara EXAM: Esophagram barium swallow. CLINICAL HISTORY: Persistent cough. Dysphagia for solids. COMPARISON: None TECHNIQUE: The patient ingested barium. Fluoroscopic imaging was performed. Dose report: 40 seconds of fluoroscopy. Radiation dose: 8.1 mGy. The esophagus is unremarkable. No evidence of gastroesophageal reflux. No obstruction to the flow of contrast. The patient ingested a 12 mm tablet the barium. There is transient holdup at the gastroesophageal junction although it FINDINGS: Unremarkable air-contrast esophagram barium swallow. RAD/Esophagus Dual Contrast IMPRESSION: Unremarkable air-contrast esophagram barium swallow. Reading Location: [place] [address] CC: Dr. Laila Ramos MD; KERRY Parmar Stage Builder: Signed Normal [facility] CNOVon 07-25-2025 CNOV Office Visit (INTMWS ) EVELIA NAILS JR. ([id number]) 1940 M Date Time Provider Department 07/25/25 3:20 PM LAILA RAMOS INTMWS During your visit today, we recorded the following information about you: Pulse Respiration Blood pressure Weight 76/minute 16/minute 107/59 94.3 kg Laila Ramos MD 08/30/2025 11:56 PM Signed Subjective Evelia Nails Jr. is a 84 year old male. HPI SUBJECTIVE: Evelia Nails is an 84-year-old male, with a history of dysphagia, presenting for a 4-month follow-up visit. Evelia reports ongoing issues with dysphagia, particularly with pills getting stuck in his throat, causing a terrible taste and occasional coughing up of pill fragments. He also experiences burning sensations in his esophagus or throat area. He has been managing this by drinking water to help swallow the pills but has not tried using applesauce or yogurt. He was evaluated by Dr. Mcnamara at [facility], who performed a nasal endoscopy that was inconclusive. He is scheduled for further evaluation under anesthesia at the hospital on August 03. Evelia is currently taking buspirone BID, metoprolol BID, Singulair, sucralfate BID, folic acid, Lialda, Prevacid, Zoloft, and Flomax. He has discontinued Cardizem and Aricept. He denies needing any medication refills at this time. He denies experiencing lightheadedness or dizziness. 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 tamsulosin (FLOMAX) 0.4 mg Take 2 capsules by mouth daily at bedtime. magnesium oxide (MAG-OX) 400 mg (241.3 mg magnesium) tablet Take 1 tablet by mouth once daily. folic acid 1 mg tablet Take 1 tablet by mouth two times a day. montelukast (SINGULAIR) 10 mg tablet Take 1 tablet by mouth daily at bedtime. meloxicam (MOBIC) 7.5 mg tablet Take 7.5 mg by mouth. acetaminophen (TYLENOL EXTRA STRENGTH) 500 mg tablet Take 1,000 mg by mouth every 8 hours as needed. finasteride (PROSCAR) 5 mg tablet Take 5 mg by mouth once daily. glucosamine/msm/chondrt /C/hyal (GLUCOSAMINE-CHONDROITI N-MSM ORAL) Take by mouth. MV with Vgr-Echmyjdb-Ztdlql (CENTRUM SILVER) 0.4-300-250 mg-mcg-mcg tab Take 1 tablet by mouth once daily. VIT C/E/ZN/COPPR/LUTEIN/GRACE THEA (PRESERVISION AREDS 2 ORAL) Take 2 capsules by mouth once daily. coenzyme Q10 (COENZYME Q-10) 100 mg cap capsule Take 1 capsule by mouth. cyanocobalamin (VITAMIN B-12) 1,000 mcg tab Take 1 tablet by mouth once daily. donepezil (ARICEPT) 10 mg tablet Take 1 tablet by mouth daily at bedtime. busPIRone (BUSPAR) 10 mg tablet Take 1 tablet by mouth two times a day. metoprolol tartrate 75 mg tab Take 1 tablet by mouth two times a day. sucralfate (CARAFATE) 1 gram tablet Take 1 tablet by mouth two times a day. lansoprazole (PREVACID) 30 mg capsule Take 1 capsule by mouth two times a day. 1/2 hr before meal. No current facility-administered medications for this visit. Review of Systems Objective BP 107/59 Pulse 76 Resp 16 Wt 94.3 kg (207 lb 14.3 oz) SpO2 96% BMI 28.47 kg/m? Last 5 Encounter Wt Readings: Date: Wt: 07/25/2025 94.3 kg (207 lb 14.3 oz) 04/10/2025 92.5 kg (203 lb 14.8 oz) 11/20/2024 93 kg (205 lb 0.4 oz) 11/02/2024 93.2 kg (205 lb 7.5 oz) 10/04/2024 95.4 kg (210 lb 5.1 oz) No waist measurement recorded Estimated body mass index is 28.47 kg/m? as calculated from the following: Height as of 11/20/24: 182 cm (5' 11.65). Weight as of this encounter: 94.3 kg (207 lb 14.3 oz). Last 5 Encounter BP Readings: Date: BP: 07/25/2025 107/59 04/10/2025 116/58 11/20/2024 111/70 11/02/2024 100/61 09/25/2024 118/68 Physical Exam Vitals reviewed. Constitutional: Appearance: Normal appearance. Eyes: Conjunctiva/sclera: Conjunctivae normal. Cardiovascular: Rate and Rhythm: Normal rate and regular rhythm. Heart sounds: Normal heart sounds. Pulmonary: Effort: Pulmonary effort is normal. Breath sounds: Normal breath sounds. Musculoskeletal: Right lower leg: No edema. Left lower leg: No edema. Skin: General: Skin is warm and dry. Neurological: General: No focal deficit present. Mental Status: He is alert and oriented to person, place, and time. Psychiatric: Mood and Affect: Mood normal. Behavior: Behavio (more content not included)... Normal [facility] 25(OH)D3 [facility] 20[facility] 25-hydroxyvitamin D3 [Mass/Vol] 67.1 ng/mL Normal 31.0-80.0 [facility] Comment on above: Order Comment: Speci men Type: BLOOD SPECIMENOrdering Facility: [facility] Address: [address] [place] [address] Performed By: #### 1 989-3 ####[facility] [id number] [place] [address] [place] CBC panel Auto (Bld)on 04-10 Erythrocyte distribution width (RBC) [Ratio] 16 % High 11.5 - 15.0 % [facility] Hematocrit (Bld) [Volume fraction] 39.6 % 39.0 - 51.0 % [facility] Hemoglobin (Bld) [Mass/Vol] 12.3 g/dL Low 13.0 - 17.0 g/dL [facility] Interpretation and review of laboratory results Abnormal [facility] MCH (RBC) [Entitic mass] 26.8 pg 26.0 - 34.0 pg [facility] MCHC (RBC) [Mass/Vol] 31.1 g/dL 30.5 - 36.0 g/dL [facility] MCV (RBC) [Entitic vol] 86.3 fL 80.0 - 100.0 fL [facility] Nucleated RBC (Bld) [#/Vol] NINF [facility] Platelet mean volume (Bld) [Entitic vol] 10.9 fL 9.0 - 12.7 fL [facility] Platelets (Bld) [#/Vol] 168 10*3/uL [facility] RBC (Bld) [#/Vol] 4.59 10*6/uL 4.20 - 6.0 0 m/uL [facility] WBC (Bld) [#/Vol] 9.08 10*3/uL [facility] Erythrocyte distribution width (RBC) [Ratio] 16.0 % High 11.5-15.0 [facility] Comment on above: Order Comment: Speci men Type: BLOOD SPECIMENOrdering Facility: [facility] Address: [address] [place] [address] Performed By: #### 5 8410-2 ####[facility] [id number] [address] [place] Hematocrit (Bld) [Volume fraction] 39.6 % Normal 39.0-51.0 [facility] Comment on above: Order Comment: Speci men Type: BLOOD SPECIMENOrdering Facility: [facility] Address: [address] [place] [address] Performed By: #### 5 8410-2 ####[facility] [id number] [place] [address] [place] Hemoglobin (Bld) [Mass/Vol] 12.3 g/dL Low 13.0-17.0 [facility] Comment on above: Order Comment: Speci men Type: BLOOD SPECIMENOrdering Facility: [facility] Address: [address] [place] [address] Performed By: #### 5 8410-2 ####[facility] [id number] [place] [address] [place] MCH (RBC) [Entitic mass] 26.8 pg Normal 26.0-34.0 [facility] Comment on above: Order Comment: Speci men Type: BLOOD SPECIMENOrdering Facility: [facility] Address: [address] [place] [address] Performed By: #### 5 8410-2 ####[facility] [id number] [place] [address] [place] MCHC (RBC) [Mass/Vol] 31.1 g/dL Normal 30.5-36.0 [facility] Comment on above: Order Comment: Speci men Type: BLOOD SPECIMENOrdering Facility: [facility] Address: [address] [place] [address] Performed By: #### 5 8410-2 ####[facility] [id number] [place] [address] [place] MCV (RBC) [Entitic vol] 86.3 fL Normal 80.0-100.0 [facility] Comment on above: Order Comment: Speci men Type: BLOOD SPECIMENOrdering Facility: [facility] Address: [address] [place] [address] Performed By: #### 5 8410-2 ####[facility] [id number] [place] [address] [place] Nucleated RBC (Bld) [#/Vol] 10*3/uL Normal <0.01 [facility] Comment on above: Order Comment: Speci men Type: BLOOD SPECIMENOrdering Facility: [facility] Address: [address] [place] [address] Performed By: #### 5 8410-2 ####[facility] [id number] [place] [address] [place] Platelet mean volume (Bld) [Entitic vol] 10.9 fL Normal 9.0-12.7 [facility] Comment on above: Order Comment: Speci men Type: BLOOD SPECIMENOrdering Facility: [facility] Address: [address] [place] [address] Performed By: #### 5 8410-2 ####[facility] [id number] [place] [address] [place] Platelets (Bld) [#/Vol] 168 10*3/uL Normal 150-400 [facility] Comment on above: Order Comment: Speci men Type: BLOOD SPECIMENOrdering Facility: [facility] Address: [address] [place] [address] Performed By: #### 5 8410-2 ####[facility] [id number] [place] [address] [place] RBC (Bld) [#/Vol] 4.59 10*6/uL Normal 4.20-6.00 [facility] Comment on above: Order Comment: Speci men Type: BLOOD SPECIMENOrdering Facility: [facility] Address: [address] [place] [address] Performed By: #### 5 8410-2 ####[facility] LABCL[facility] [id number] [place] [id number] [place] WBC (Bld) [#/Vol] 9.08 10*3/uL Normal 3.70-11.00 [facility] Comment on above: Order Comment: Speci men Type: BLOOD SPECIMENOrdering Facility: [facility] Address: [address] [place] [address] Performed By: #### 5 8410-2 ####[facility]CL[facility] [id number] [place] [id number] [place] CNOVon 04-10-2025 CNOV Office Visit (INTMWS ) EVELIA NAILS JR. ([id number]) 1940 M Date Time Provider Department 04/10/25 3:20 PM LAILA RAMOS INTMWS During your visit today, we recorded the following information about you: Pulse Respiration Blood pressure Weight 64/minute 16/minute 116/58 92.5 kg Laila Raoms MD 04/10/2025 4:03 PM Signed This note was created using [employer]DVMriter. Subjective Evelia Nails Jr. is a 84 year old male. Patient presents with: 4 month follow-up Evelia is a 84-year-old male with a history of chronic bronchitis, presenting for a 4-month follow-up. Evelia reports a recent episode of bronchitis a few weeks ago, characterized by significant dyspnea, particularly at night, and a substantial increase in his usual cough frequency. He also experienced a sore throat and produced thick mucus. He managed the symptoms at home with increased fluid intake, Tylenol, and one dose of cough medicine, noting that he toughed it out. He did not seek medical attention at the time but considered it due to the severity of his symptoms. He denies using a pulse oximeter at home. He expresses concern about his lung capacity decreasing with age and the potential for future severe episodes. He still has some inhalers left from previous prescriptions. Evelia also reports nocturia, waking 3-4 times per night to urinate, and expresses interest in adjusting his Flomax dosage to improve this. He notes an increase in urine volume since his recent surgery and rehabilitation. He denies excessive caffeine intake, consuming only half a cup of coffee once a week, and has limited his soft drink consumption. He reports a recent cystoscopy in February and has a follow-up appointment with his urologist in April. He mentions a history of holding nearly 700 mL of fluid post-surgery. Evelia denies lightheadedness or dizziness, but reports an equilibrium problem, necessitating caution when turning his body or changing direction quickly to avoid falls. He maintains hydration by keeping water beside him and limiting soft drinks. He takes Tylenol as needed, particularly before bedtime to help relax when feeling stressed. He denies a true allergy to penicillin, stating it was ineffective for him in the past. 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 Take one (1) tablet daily at noon for one week and then stop completely. sucralfate (CARAFATE) 1 gram tablet Take 1 tablet by mouth two times a day. metoprolol tartrate, short acting, 75 mg tab Take 1 tablet by mouth two times a day. CARDIZEM CD 120 mg 24 hr capsule Take 1 capsule by mouth once daily. busPIRone (BUSPAR) 10 mg tablet Take 1 tablet by mouth two times a day. donepezil (ARICEPT) 10 mg tablet Take 1 tablet by mouth daily at bedtime. folic acid 1 mg tablet Take 1 tablet by mouth two times a day. Mesalamine (LIALDA) 1.2 gram EC tablet Take 1 tablet by mouth two times a day. montelukast (SINGULAIR) 10 mg tablet Take 1 tablet by mouth daily at bedtime. meloxicam (MOBIC) 7.5 mg tablet Take 7.5 mg by mouth. finasteride (PROSCAR) 5 mg tablet Take 5 mg by mouth once daily. glucosamine/msm/chondrt /C/hyal (GLUCOSAMINE-CHONDROITI N-MSM ORAL) Take by mouth. MV with Zap-Afugnwez-Lbbhyo (CENTRUM SILVER) 0.4-300-250 mg-mcg-mcg tab Take 1 tablet by mouth once daily. VIT C/E/ZN/COPPR/LUTEIN/GRACE THEA (PRESERVISION AREDS 2 ORAL) Take 2 capsules by mouth once daily. coenzyme Q10 (COENZYME Q-10) 100 mg cap capsule Take 1 capsule by mouth. cyanocobalamin (VITAMIN B-12) 1,000 mcg tab Take 1 tablet by mouth once daily. lansoprazole (PREVACID) 30 mg capsule Take 1 capsule by mouth two times a day. 1/2 hr before meal. sertraline (ZOLOFT) 100 mg tablet Take 2 tablets by mouth once daily. tamsulosin (FLOMAX) 0.4 mg Take 2 capsules by mouth daily at bedtime. magnesium oxide (MAG-OX) 400 mg (241.3 mg magnesium) tablet Take 1 tablet by mouth once daily. acetaminophen (TYLENOL EXTRA STRENGTH) 500 mg tablet Take 1,000 mg by mouth every 8 hours as needed. No current facility-administered medications for this visit. Review of Systems Objective BP 116/58 (BP Site: Left Arm, BP Position: Sitting, BP Cuff Size: Large Adult) Pulse 64 Resp 16 Wt 92. (more content not included)... Normal [facility] Comprehensive metabolic 2000 panelon 04-10-2025 Albumin [Mass/Vol] 4.3 g/dL Normal 3.9-4.9 [facility] Comment on above: Order Comment: Speci men Type: BLOOD SPECIMENOrdering Facility: [facility] Address: [address] [place] [address] Performed By: #### 1 9123-9, 52156-7 ####[facility] LABCLIA [id number] [place] [address] [place] ALP [Catalytic activity/Vol] 108 U/L Normal 38-113 [facility] Comment on above: Order Comment: Speci men Type: BLOOD SPECIMENOrdering Facility: [facility] Address: [address] [place] [address] Performed By: #### 1 9123-9, 66341-8 ####[facility]CL[facility] [id number] [place] [address] [place] ALT [Catalytic activity/Vol] 11 U/L Normal 10-54 [facility] Comment on above: Order Comment: Speci men Type: BLOOD SPECIMENOrdering Facility: [facility] Address: [address] [place] [address] Performed By: #### 1 9123-9, ####[facility]CL[facility] [id number] [place] [address] [place] Anion gap [Moles/Vol] 11 mmol/L Normal 8-15 [facility] Comment on above: Order Comment: Speci men Type: BLOOD SPECIMENOrdering Facility: [facility] Address: [address] [place] [address] Performed By: #### 1 9123-9, ####[facility]CL[facility] [id number] [place] [address] [place] AST [Catalytic activity/Vol] 21 U/L Normal 14-40 [facility] Comment on above: Order Comment: Speci men Type: BLOOD SPECIMENOrdering Facility: [facility] Address: [address] [place] [id number] Performed By: #### 1 9123-9, 75562-8 ####[facility] LABCLIA [id number] [place] [id number] [place] Bilirubin [Mass/Vol] 0.4 mg/dL Normal 0.2-1.3 [facility] Comment on above: Order Comment: Speci men Type: BLOOD SPECIMENOrdering Facility: [facility] Address: [address] [place] [id number] Performed By: #### 1 9123-9, 84753-3 ####[facility]CLIA [id number] [address] [address] [place] Calcium [Mass/Vol] 10.0 mg/dL Normal 8.5-10.2 [facility] Comment on above: Order Comment: Speci men Type: BLOOD SPECIMENOrdering Facility: [facility] Address: [address] [place] [address] Performed By: #### 1 23-9, 87737-0 ####[facility]CLIA [id number] [place] [address] [place] Chloride [Moles/Vol] 103 mmol/L Normal 98-107 [facility] Comment on above: Order Comment: Speci men Type: BLOOD SPECIMENOrdering Facility: [facility] Address: [address] [place] [address] Performed By: #### 1 239, ####[facility]CL[facility] [id number] [place] [address] [place] CO2 [Moles/Vol] 25 mmol/L Normal 22-30 [facility] Comment on above: Order Comment: Speci men Type: BLOOD SPECIMENOrdering Facility: [facility] Address: [address] [place] [address] Performed By: #### 1 239, ####[facility]CLIA [id number] [address] [address] [place] Creatinine [Mass/Vol] 1.11 mg/dL Normal 0.73-1.22 [facility] Comment on above: Order Comment: Speci men Type: BLOOD SPECIMENOrdering Facility: [facility] Address: [address] [place] [address] Performed By: #### 1 23-9, 38957-5 ####[facility]CLIA [id number] [place] [id number] [place] Creatinine and Glomerular filtration rate.predicted panel (S/P/Bld) 65 mL/min/1.73m??? Normal >=60 [facility] Comment on above: Order Comment: Katty villasenor Type: BLOOD SPECIMENOrdering Facility: [facility] Address: [address] [place] [address] Result Comment: Sammie mated Glomerular Filtration Rate (eGFR) is calculated using the 2020 CKD-EPI creatinine equation. This equation utilizes serum creatinine, sex, and age as parameters. The creatinine assay has traceable calibration to isotope dilution-mass spectrometry. Refer to KDIGO guidelines for clinical interpretation. In patients with unstable renal function, e.g. those with acute kidney injury, the eGFR may not accurately reflect actual GFR. Performed By: #### 1 9123-9, 71175-3 ####[facility] [id number] [place] [address] [place] Glucose [Mass/Vol] 101 mg/dL High 74-99 [facility] Comment on above: Order Comment: Katty villasenor Type: BLOOD SPECIMENOrdering Facility: [facility] Address: [address] [place] [address] Result Comment: The [place] Diabetes Association (ADA) provides guidance for cutoff values for fasting glucose and random glucose. The ADA defines fasting as no caloric intake for at least 8 hours. Fasting plasma glucose results between 100 to 125 mg/dL indicate increased risk for diabetes (prediabetes). Fasting plasma glucose results greater than or equal to 126 mg/dL meet the criteria for diagnosis of diabetes. In the absence of unequivocal hyperglycemia, results should be confirmed by repeat testing. In a patient with classic symptoms of hyperglycemia or hyperglycemic crisis, random plasma glucose results greater than or equal to 200 mg/dL meet the criteria for diagnosis of diabetes. Reference: Standards of Medical Care in Diabetes 2016, [place] Diabetes Association. Diabetes Care. 2016.39(Suppl 1). Performed By: #### 1 9123-9, 46741-5 ####[facility] [id number] [place] [id number] [place] Potassium [Moles/Vol] 4.8 mmol/L Normal 3.7-5.1 [facility] Comment on above: Order Comment: Speci men Type: BLOOD SPECIMENOrdering Facility: [facility] Address: [address] [place] [address] Performed By: #### 1 9123-9, 58670-5 ####[facility]CL[facility] [id number] [place] [address] [place] Protein [Mass/Vol] 7.1 g/dL Normal 6.3-8.0 [facility] Comment on above: Order Comment: Speci men Type: BLOOD SPECIMENOrdering Facility: [facility] Address: [address] [place] [address] Performed By: #### 1 9123-9, 65475-2 ####[facility] LABCLIA [id number] [place] [address] [place] Sodium [Moles/Vol] 139 mmol/L Normal 136-144 [facility] Comment on above: Order Comment: Speci men Type: BLOOD SPECIMENOrdering Facility: [facility] Address: [address] [place] [address] Performed By: #### 1 9123-9, 30892-2 ####[facility] LABIA [id number] [place] [address] [place] Urea nitrogen [Mass/Vol] 24 mg/dL Normal 9-24 [facility] Comment on above: Order Comment: Speci men Type: BLOOD SPECIMENOrdering Facility: [facility] Address: [address] [place] [address] Performed By: #### 1 9123-9, 38899-4 ####[facility]CL[facility] [id number] [place] [id number] [place] HbA1c (Bld)on 04-10-2025 Average glucose Estimated from glycated hemoglobin (Bld) [Mass/Vol] 111 mg/dL Normal [facility] Comment on above: Order Comment: Speci men Type: BLOOD SPECIMENOrdering Facility: [facility] Address: [address] [place] [address] Result Comment: eAG: (Estimated average glucose) is a calculated value from HgbA1c and is route service representative of the average blood glucose level in the last 2-3 month period. Performed By: #### 5 5454-3 ####[facility] LABIA [id number] [place] [address] [place] HbA1c (Bld) [Mass fraction] 5.5 % Normal 4.3-5.6 [facility] Comment on above: Order Comment: Jennai men Type: BLOOD SPECIMENOrdering Facility: [facility] Address: [address] [place] [address] Result Comment: Amer [place] Diabetes Association guidelines indicate that patients with HgbA1c in the range 5.7-6.4% are at increased risk for development of diabetes, and intervention by lifestyle modification may be beneficial. HgbA1c greater or equal to 6.5% is considered diagnostic of diabetes. Performed By: #### 5 5454-3 ####[facility] LABIA [id number] [place] [address] [place] Magnesium SerPl-mCncon 04-10 Magnesium [Mass/Vol] 2.3 mg/dL Normal 1.7-2.3 [facility] Comment on above: Order Comment: Speci men Type: BLOOD SPECIMENOrdering Facility: [facility] Address: [address] [place] [address] Performed By: #### 1 9123-9, 01781-3 ####[facility] LABIA [id number] [place] [address] [place] 25(OH)D3 SerPl-mCncon 2023 25-hydroxyvitamin D3 [Mass/Vol] 53.3 ng/mL Normal 31.0-80.0 [facility] Comment on above: Order Comment: Speci men Type: BLOOD SPECIMENOrdering Facility: [facility] Address: [address] [place] [address] Result Comment: Clas sification of 25 [place] Vitamin D status: Deficiency/Insufficiency: < or = 30 ng/ml. Sufficiency/Optimal Levels: 31-80 ng/mL Toxicity: > 100 ng/mL. Test performed by chemiluminescent immunoassay. Performed By: #### 1 989-3 ####[facility]CL[facility] [id number] [place] [address] [place] CBC W Auto Differential pane l (Bld)on 11-20-2024 Basophils (Bld) [#/Vol] 0.03 10*3/uL Normal <0.11 [facility] Comment on above: Order Comment: Speci men Type: BLOOD SPECIMENOrdering Facility: [facility] Address: [address] [place] [address] Performed By: #### 5 7021-8 ####[facility]CL[facility] [id number] [place] [address] [place] Basophils/100 WBC (Bld) 0.3 % Normal [facility] Comment on above: Order Comment: Speci men Type: BLOOD SPECIMENOrdering Facility: [facility] Address: [address] [place] [address] Performed By: #### 5 7021-8 ####[facility]CL[facility] [id number] [place] [address] [place] Differential cell count method Nom (Bld) Auto Normal [facility] Comment on above: Order Comment: Speci men Type: BLOOD SPECIMENOrdering Facility: [facility] Address: [address] [place] [address] Performed By: #### 5 7021-8 ####[facility]CL[facility] [id number] [place] [address] [place] Eosinophils (Bld) [#/Vol] 0.13 10*3/uL Normal <0.46 [facility] Comment on above: Order Comment: Speci men Type: BLOOD SPECIMENOrdering Facility: [facility] Address: [address] [place] [address] Performed By: #### 5 7021-8 ####[facility]CL[facility] [id number] [place] [address] [place] Eosinophils/100 WBC (Bld) 1.5 % Normal [facility] Comment on above: Order Comment: Speci men Type: BLOOD SPECIMENOrdering Facility: [facility] Address: [address] [place] [address] Performed By: #### 5 7021-8 ####[facility]CL[facility] [id number] [place] [address] [place] Erythrocyte distribution width (RBC) [Ratio] 17.0 % High 11.5-15.0 [facility] Comment on above: Order Comment: Speci men Type: BLOOD SPECIMENOrdering Facility: [facility] Address: [address] [place] [address] Performed By: #### 5 7021-8 ####[facility]CL[facility] [id number] [place] [address] [place] Hematocrit (Bld) [Volume fraction] 41.9 % Normal 39.0-51.0 [facility] Comment on above: Order Comment: Speci men Type: BLOOD SPECIMENOrdering Facility: [facility] Address: [address] [place] [address] Performed By: #### 5 7021-8 ####[facility]CL[facility] [id number] [place] [address] [place] Hemoglobin (Bld) [Mass/Vol] 13.0 g/dL Normal 13.0-17.0 [facility] Comment on above: Order Comment: Speci men Type: BLOOD SPECIMENOrdering Facility: [facility] Address: [address] [place] [address] Performed By: #### 5 7021-8 ####[facility]CL[facility] [id number] [place] [address] [place] Immature granulocytes (Bld) [#/Vol] 0.05 10*3/uL Normal <0.10 [facility] Comment on above: Order Comment: Speci men Type: BLOOD SPECIMENOrdering Facility: [facility] Address: [address] [place] [address] Performed By: #### 5 7021-8 ####[facility]CLIA [id number] [place] [address] [place] Immature granulocytes/100 WBC (Bld) 0.6 % Normal [facility] Comment on above: Order Comment: Speci men Type: BLOOD SPECIMENOrdering Facility: [facility] Address: [address] [place] [address] Performed By: #### 5 7021-8 ####[facility]CL[facility] [id number] [place] [address] [place] Lymphocytes (Bld) [#/Vol] 1.62 10*3/uL Normal 1.00-4.00 [facility] Comment on above: Order Comment: Speci men Type: BLOOD SPECIMENOrdering Facility: [facility] Address: [address] [place] [address] Performed By: #### 5 7021-8 ####[facility]CL[facility] [id number] [place] [address] [place] Lymphocytes/100 WBC (Bld) 18.9 % Normal [facility] Comment on above: Order Comment: Speci men Type: BLOOD SPECIMENOrdering Facility: [facility] Address: [address] [place] [address] Performed By: #### 5 7021-8 ####[facility]CL[facility] [id number] [place] [address] [place] MCH (RBC) [Entitic mass] 27.7 pg Normal 26.0-34.0 [facility] Comment on above: Order Comment: Speci men Type: BLOOD SPECIMENOrdering Facility: [facility] Address: [address] [place] [address] Performed By: #### 5 7021-8 ####[facility]CL[facility] [id number] [place] [address] [place] MCHC (RBC) [Mass/Vol] 31.0 g/dL Normal 30.5-36.0 [facility] Comment on above: Order Comment: Speci men Type: BLOOD SPECIMENOrdering Facility: [facility] Address: [address] [place] [address] Performed By: #### 5 7021-8 ####[facility] LABIA [id number] [place] [address] [place] MCV (RBC) [Entitic vol] 89.3 fL Normal 80.0-100.0 [facility] Comment on above: Order Comment: Speci men Type: BLOOD SPECIMENOrdering Facility: [facility] Address: [address] [place] [address] Performed By: #### 5 7021-8 ####[facility] LABIA [id number] [place] [address] [place] Monocytes (Bld) [#/Vol] 0.55 10*3/uL Normal <0.87 [facility] Comment on above: Order Comment: Speci men Type: BLOOD SPECIMENOrdering Facility: [facility] Address: [address] [place] [address] Performed By: #### 5 7021-8 ####[facility]CL[facility] [id number] [place] [address] [place] Monocytes/100 WBC (Bld) 6.4 % Normal [facility] Comment on above: Order Comment: Speci men Type: BLOOD SPECIMENOrdering Facility: [facility] Address: [address] [place] [address] Performed By: #### 5 7021-8 ####[facility]CL[facility] [id number] [place] [address] [place] Neutrophils (Bld) [#/Vol] 6.20 10*3/uL Normal 1.45-7.50 [facility] Comment on above: Order Comment: Speci men Type: BLOOD SPECIMENOrdering Facility: [facility] Address: [address] [place] [address] Performed By: #### 5 7021-8 ####[facility]CL[facility] [id number] [place] [address] [place] Neutrophils/100 WBC (Bld) 72.3 % Normal [facility] Comment on above: Order Comment: Speci men Type: BLOOD SPECIMENOrdering Facility: [facility] Address: [address] [place] [address] Performed By: #### 5 7021-8 ####[facility]CL[facility] [id number] [place] [address] [place] Nucleated RBC (Bld) [#/Vol] 10*3/uL Normal <0.01 [facility] Comment on above: Order Comment: Speci men Type: BLOOD SPECIMENOrdering Facility: [facility] Address: [address] [place] [address] Performed By: #### 5 7021-8 ####[facility]CL[facility] [id number] [place] [address] [place] Nucleated RBC/100 WBC (Bld) [Ratio] 0.0 /100 WBC Normal [facility] Comment on above: Order Comment: Speci men Type: BLOOD SPECIMENOrdering Facility: [facility] Address: [address] [place] [address] Performed By: #### 5 7021-8 ####[facility]CL[facility] [id number] [place] [address] [place] Platelet mean volume (Bld) [Entitic vol] 10.7 fL Normal 9.0-12.7 [facility] Comment on above: Order Comment: Speci men Type: BLOOD SPECIMENOrdering Facility: [facility] Address: [address] [place] [address] Performed By: #### 5 7021-8 ####[facility]CL[facility] [id number] [place] [address] [place] Platelets (Bld) [#/Vol] 190 10*3/uL Normal 150-400 [facility] Comment on above: Order Comment: Speci men Type: BLOOD SPECIMENOrdering Facility: [facility] Address: [address] [place] [address] Performed By: #### 5 7021-8 ####[facility] LABIA [id number] [place] [address] [place] RBC (Bld) [#/Vol] 4.69 10*6/uL Normal 4.20-6.00 [facility] Comment on above: Order Comment: Speci men Type: BLOOD SPECIMENOrdering Facility: [facility] Address: [address] [place] [address] Performed By: #### 5 7021-8 ####[facility]IA [id number] [place] [address] [place] WBC (Bld) [#/Vol] 8.58 10*3/uL Normal 3.70-11.00 [facility] Comment on above: Order Comment: Speci men Type: BLOOD SPECIMENOrdering Facility: [facility] Address: [address] [place] [address] Performed By: #### 5 7021-8 ####[facility] LAB[facility] [id number] [place] [address] [place] CNOVon 11-20-2024 CNOV Office Visit (INTMWS ) EVELIA NAILS JR. ([id number]) 1940 M Date Time Provider Department 11/20/24 10:00 AM LAILA RAMOS INTMWS During your visit today, we recorded the following information about you: Pulse Respiration Blood pressure Weight 69/minute 16/minute 111/70 93 kg Height 1.82 m Laila Ramos MD 11/20/2024 11:42 AM Signed This note was created using [employer]. Subjective Evelia Nails Jr. is a 84 year old male. Review of Systems Objective BP 111/70 Pulse 69 Resp 16 Ht 182 cm (5' 11.65) Wt 93 kg (205 lb 0.4 oz) SpO2 96% BMI 28.08 kg/m? Physical Exam Vitals reviewed. Constitutional: Appearance: Normal appearance. HENT: Head: Normocephalic. Right Ear: Tympanic membrane, ear canal and external ear normal. Left Ear: Tympanic membrane, ear canal and external ear normal. Mouth/Throat: Mouth: Mucous membranes are moist. Pharynx: Oropharynx is clear. Eyes: Extraocular Movements: Extraocular movements intact. Conjunctiva/sclera: Conjunctivae normal. Neck: Thyroid: No thyromegaly. Vascular: No carotid bruit. Cardiovascular: Rate and Rhythm: Normal rate and regular rhythm. Pulses: Normal pulses. Heart sounds: Normal heart sounds. Pulmonary: Effort: Pulmonary effort is normal. Breath sounds: Normal breath sounds. Abdominal: General: Abdomen is flat. There is no distension. Palpations: Abdomen is soft. There is no mass. Musculoskeletal: Cervical back: Normal range of motion. Right lower leg: No edema. Left lower leg: No edema. Skin: General: Skin is warm and dry. Comments: Scaly patch on left ear Neurological: General: No focal deficit present. Mental Status: He is alert and oriented to person, place, and time. Psychiatric: Attention and Perception: Attention and perception normal. Mood and Affect: Mood and affect normal. Speech: Speech normal. Behavior: Behavior normal. Thought Content: Thought content normal. Cognition and Memory: Cognition normal. Judgment: Judgment normal. Assessment and Plan--See below HISTORY Evelia Nails Jr. is a 84 year old gentleman here for Medicare Annual Wellness Visit, yearly exam and follow up appointment. Evelia Nails is an 84-year-old male with a history of HTN, tremors, macular degeneration, Crohn's disease, depression, and atrial fibrillation, presenting for a Medicare Annual Wellness Visit. Evelia reports stable vision with ongoing eye injections for macular degeneration. He experiences balance issues and equilibrium problems, and has an upcoming appointment for an eye checkup next month. Exercise is currently limited, but he has been engaging in physical therapy to improve upper body strength and range of motion. He reports no need for medication refills at this time. Evelia is currently taking Inderal 40 mg TID and metoprolol 50 mg BID for blood pressure management, with readings consistently around 110/70 mmHg. He notes that propranolol has not significantly helped with tremors and denies any preference for one medication over the other. He is not currently following up with a machinist wood. He also takes Cardizem 120 mg daily, with the current prescription running out soon. Evelia has a history of anemia, with recent labs showing a hemoglobin level of 10.5 g/dL and a hematocrit of 33.7%. He is taking folic acid and vitamin D supplements. He reports that Zoloft has been effective in managing depression, which is currently in remission. He denies any recent episodes of atrial fibrillation. Evelia has a living will but has not yet designated a healthcare power of trademark attorney. He is considering updating his living will and is uncertain about who will be responsible for medical decisions if he is incapacitated. He has a half-brother and a half-sister. 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 CARDIZEM CD 120 mg 24 hr capsule 120 mg. acetaminophen (TYLENOL EXTRA STRENGTH) 500 mg tablet Take 1,000 mg by mouth every 8 hours as needed. magnesium oxide (MAG-OX) 400 mg (241.3 mg magnesium) tablet Take 1 tablet by mouth once daily. tamsulosin (FLOMAX) 0.4 mg Take 1 capsule by mouth daily at bedtime. metoprolol tartrate, short acting, (LOPRESSOR) 50 (more content not included)... Normal [facility] Comprehensive metabolic 2000 panelon 11-20-2024 Albumin [Mass/Vol] 4.5 g/dL Normal 3.9-4.9 [facility] Comment on above: Order Comment: Speci men Type: BLOOD SPECIMENOrdering Facility: [facility] Address: [address] [place] [address] Performed By: #### 2 4323-8 ####[facility] [id number] [place] [address] [place] ALP [Catalytic activity/Vol] 130 U/L High 38-113 [facility] Comment on above: Order Comment: Speci men Type: BLOOD SPECIMENOrdering Facility: [facility] Address: [address] [place] [address] Performed By: #### 2 4323-8 ####[facility] [id number] [place] [address] [place] ALT [Catalytic activity/Vol] 15 U/L Normal 10-54 [facility] Comment on above: Order Comment: Speci men Type: BLOOD SPECIMENOrdering Facility: [facility] Address: [address] [place] [address] Performed By: #### 2 4323-8 ####[facility] [id number] [place] [address] [place] Anion gap [Moles/Vol] 10 mmol/L Normal 8-15 [facility] Comment on above: Order Comment: Speci men Type: BLOOD SPECIMENOrdering Facility: [facility] Address: [address] [place] [address] Performed By: #### 2 4323-8 ####[facility]CL[facility] [id number] [place] [address] [place] AST [Catalytic activity/Vol] 18 U/L Normal 14-40 [facility] Comment on above: Order Comment: Speci men Type: BLOOD SPECIMENOrdering Facility: [facility] Address: [address] [place] [address] Performed By: #### 2 4323-8 ####[facility] [id number] [place] [address] [place] Bilirubin [Mass/Vol] 0.4 mg/dL Normal 0.2-1.3 [facility] Comment on above: Order Comment: Speci men Type: BLOOD SPECIMENOrdering Facility: [facility] Address: [address] [place] [address] Performed By: #### 2 4323-8 ####[facility] [id number] [place] [address] [place] Calcium [Mass/Vol] 9.9 mg/dL Normal 8.5-10.2 [facility] Comment on above: Order Comment: Speci men Type: BLOOD SPECIMENOrdering Facility: [facility] Address: [address] [place] [address] Performed By: #### 2 4323-8 ####[facility] [id number] [place] [address] [place] Chloride [Moles/Vol] 104 mmol/L Normal 98-107 [facility] Comment on above: Order Comment: Speci men Type: BLOOD SPECIMENOrdering Facility: [facility] Address: [address] [place] [address] Performed By: #### 2 4323-8 ####[facility] [id number] [place] [address] [place] CO2 [Moles/Vol] 27 mmol/L Normal 22-30 [facility] Comment on above: Order Comment: Speci men Type: BLOOD SPECIMENOrdering Facility: [facility] Address: [address] [place] [address] Performed By: #### 2 4323-8 ####[facility] [id number] [place] [address] [place] Creatinine [Mass/Vol] 0.99 mg/dL Normal 0.73-1.22 [facility] Comment on above: Order Comment: Speci men Type: BLOOD SPECIMENOrdering Facility: [facility] Address: [address] [place] [address] Performed By: #### 2 4323-8 ####[facility] [id number] [place] [address] [place] Creatinine and Glomerular filtration rate.predicted panel (S/P/Bld) 75 mL/min/1.73m??? Normal >=60 [facility] Comment on above: Order Comment: Speci men Type: BLOOD SPECIMENOrdering Facility: [facility] Address: [address] [place] [address] Result Comment: Sammie mated Glomerular Filtration Rate (eGFR) is calculated using the 2020 CKD-EPI creatinine equation. This equation utilizes serum creatinine, sex, and age as parameters. The creatinine assay has traceable calibration to isotope dilution-mass spectrometry. Refer to KDIGO guidelines for clinical interpretation. In patients with unstable renal function, e.g. those with acute kidney injury, the eGFR may not accurately reflect actual GFR. Performed By: #### 2 4323-8 ####[facility] [id number] [place] [address] [place] Glucose [Mass/Vol] 102 mg/dL High 74-99 [facility] Comment on above: Order Comment: Speci men Type: BLOOD SPECIMENOrdering Facility: [facility] Address: [address] [place] [address] Result Comment: The [place] Diabetes Association (ADA) provides guidance for cutoff values for fasting glucose and random glucose. The ADA defines fasting as no caloric intake for at least 8 hours. Fasting plasma glucose results between 100 to 125 mg/dL indicate increased risk for diabetes (prediabetes). Fasting plasma glucose results greater than or equal to 126 mg/dL meet the criteria for diagnosis of diabetes. In the absence of unequivocal hyperglycemia, results should be confirmed by repeat testing. In a patient with classic symptoms of hyperglycemia or hyperglycemic crisis, random plasma glucose results greater than or equal to 200 mg/dL meet the criteria for diagnosis of diabetes. Reference: Standards of Medical Care in Diabetes 2016, [place] [employer]. Diabetes Care. 2016.39(Suppl 1). Performed By: #### 2 4323-8 ####[facility] [id number] [place] [address] [place] Potassium [Moles/Vol] 5.5 mmol/L High 3.7-5.1 [facility] Comment on above: Order Comment: Speci men Type: BLOOD SPECIMENOrdering Facility: [facility] Address: [address] [place] [address] Performed By: #### 2 4323-8 ####[facility] [id number] [place] [address] [place] Protein [Mass/Vol] 7.4 g/dL Normal 6.3-8.0 [facility] Comment on above: Order Comment: Speci men Type: BLOOD SPECIMENOrdering Facility: [facility] Address: [address] [place] [address] Performed By: #### 2 4323-8 ####[facility] [id number] [place] [address] [place] Sodium [Moles/Vol] 141 mmol/L Normal 136-144 [facility] Comment on above: Order Comment: Speci men Type: BLOOD SPECIMENOrdering Facility: [facility] Address: [address] [place] [address] Performed By: #### 2 4323-8 ####[facility] [id number] [place] [id number] [place] Urea nitrogen [Mass/Vol] 21 mg/dL Normal 9-24 [facility] Comment on above: Order Comment: Speci men Type: BLOOD SPECIMENOrdering Facility: [facility] Address: [address] [place] [address] Performed By: #### 2 4323-8 ####[facility] [id number] [place] [id number] [facility] [place] CNPNon 11-14-2024 CNPN Telephone (INTMWS) EVELIA NAILS JR. ([id number]) 1940 M Date Time Provider Department 11/14/24 LAILA RAMOS INTWS During your visit today, we recorded the following information about you: Chanelle Peguero LPN 11/14/2024 2:10 PM Signed Susan with [facility] called to let you know they d/c pt from home care. Pt going to start out outpt Therapy. Chanelle Peguero LPN Allergies As of Date: 11/14/2024 Noted Allergy Reaction ATORVASTATIN 05/22/2013 15 - Contraindication-Medica l Avilez* Comments: myalgia, weakness proximal muscle PENICILLINS 07/16/2005 Comments: doesn't work Date Reviewed: 11/02/2024 Reviewed by: Em Romero APRN.MEDICAL RECORDS SUPERVISOR - Fully Assessed Reason for Visit: [facility] [Other] Prescriptions as of 11/15/2024 - meloxicam (MOBIC) 7.5 mg tablet Take 7.5 mg by mouth. - Acetaminophen 500 mg cap EVERY 8 HOURS - CARDIZEM CD 120 mg 24 hr capsule 120 mg. - acetaminophen (TYLENOL EXTRA STRENGTH) 500 mg tablet Take 1,000 mg by mouth every 8 hours as needed. - magnesium oxide (MAG-OX) 400 mg (241.3 mg magnesium) tablet Take 1 tablet by mouth once daily. - tamsulosin (FLOMAX) 0.4 mg Take 1 capsule by mouth daily at bedtime. - metoprolol tartrate, short acting, (LOPRESSOR) 50 mg tablet Take 1 tablet by mouth two times a day. - lansoprazole (PREVACID) 30 mg capsule Take 1 capsule by mouth two times a day. 1/2 hr before meal. - sertraline (ZOLOFT) 100 mg tablet Take 2 tablets by mouth once daily. - montelukast (SINGULAIR) 10 mg tablet Take 1 tablet by mouth daily at bedtime. - busPIRone (BUSPAR) 10 mg tablet Take 1 tablet by mouth two times a day. - donepezil (ARICEPT) 10 mg tablet Take 1 tablet by mouth daily at bedtime. - Mesalamine (LIALDA) 1.2 gram EC tablet Take 1 tablet by mouth two times a day. - propranolol (INDERAL) 40 mg tablet Take 1 tablet by mouth three times a day. As directed - folic acid 1 mg tablet Take 1 tablet by mouth two times a day. - sucralfate (CARAFATE) 1 gram tablet Take 1 tablet by mouth two times a day. - finasteride (PROSCAR) 5 mg tablet Take 5 mg by mouth once daily. - glucosamine/msm/chondrt /C/hyal (GLUCOSAMINE-CHONDROITI N-MSM ORAL) Take by mouth. - MV with Adh-Vpftlhkv-Enohne (CENTRUM SILVER) 0.4-300-250 mg-mcg-mcg tab Take 1 tablet by mouth once daily. - VIT C/E/ZN/COPPR/LUTEIN/GRACE THEA (PRESERVISION AREDS 2 ORAL) Take 2 capsules by mouth once daily. - coenzyme Q10 (COENZYME Q-10) 100 mg cap capsule Take 1 capsule by mouth. - cyanocobalamin (VITAMIN B-12) 1,000 mcg tab Take 1 tablet by mouth once daily. Problem List As Of Date 11/14/2024 Noted Resolved Regional enteritis (HCC) [K50.90] 07/16/2005 UNILAT INGUINAL HERNIA [K40.90] 07/16/2005 Paralysis agitans [G20.A1] 07/16/2005 09/23/2011 GASTROINTEST HEMORR NOS [K92.2] 07/16/2005 BENIGN NEOPL RECTUM/ANUS [D12.8, D12.9] 07/16/2005 CARPAL TUNNEL SYNDROME [G56.00] 01/07/2006 INJURY ULNAR NERVE [S54.00XA] 05/13/2006 Benign prostatic hyperplasia with lower urinary*07/05/2007 BLADDER NECK OBSTRUCTION [N32.0] 07/05/2007 IMPOTENCE, ORGANIC ORIGN [N52.9] 07/05/2007 DIVERTICULOSIS COLON - NO HEMORRHAGE [K57.30] 2007 Localized osteoarthrosis, lower leg [M17.10] 07/25/2008 PURE HYPERCHOLESTEROLEM [E78.00] 12/27/2008 Essential hypertension [I10] 12/27/2008 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] 01/21/2009 Essential tremor [G25.0] 04/17/2009 Unspecified Retention of Urine [R33.9] 09/20/2009 UTI (lower urinary tract infection) [N39.0] 01/13/2010 08/22/2014 Unspecified Urethral Stricture [N35.919] 01/30/2010 Dizziness [R42] 09/12/2010 Atrial fibrillation [I48.91] 01/12/2011 05/24/2011 Metabolic syndrome [E88.810] 02/16/2011 IBS (irritable bowel syndrome) [K58.9] 02/16/2011 Pneumonia [J18.9] 02/17/2011 08/22/2014 PAF (paroxysmal atrial fibrillation) [I48.0] 05/24/2011 Trochanteric bursitis [M70.60] 04/26/2012 Sciatica [M54.30] 04/26/2012 Arthritis of knee [M17.10] 04/26/2012 Chronic ITP (idiopathic thrombocytopenia) [D69.*07/25/2012 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] 08/16/2012 Chronic nasal congestion [R09.81] 10/09/2012 S/P TKR (total knee replacement) [Z96.659] 09/07/2013 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] 04/30/2014 Macular degeneration [H35.30] 08/02/2014 Chronic urticaria [L50.8] 11/25/2015 Dysthymia [F34.1] 09/09/2016 Chronic nonintractable headache [R51.9, G89.29] 09/09/2016 Anxiety [F41.9] Moderate persistent asthma without complication*04/02/2019 Non-seasonal allergic rhinitis [J30.89] 04/02/2019 Chronic midline low back pain with left-sided s*04/02/2019 DDD (degenerative disc disease), lumbar [M51.36*04/02/2019 Paralysis agitans (HCC) [G20.A1] 07/16/2005 10/04/2024 Mild depression (HCC) [F32.A] 11/02/2021 Chronic bronchitis (HCC) [J42] 02/21/2023 Esophageal dysphagia [R13.19] 02/21/2023 Major depressive disorder, single epi (more content not included)... Normal [facility] EVEL[facility] NA[facility] JR. ([id number]) 1940 M Date Time Provider Department 11/09/24 LAILA RAMOS INTWS During your visit today, we recorded the following information about you: Estrellita Ortega RN 11/09/2024 1:32 PM Signed Thomas KWAN from [facility] calls and is requesting an order for outpatient occupational therapy. Thomas requesting order to be faxed to [facility]. SOBEIDA Vanessa Terri, FRUIT HARVESTER.MEDICAL RECORDS SUPERVISOR 11/09/2024 4:20 PM Signed OT for what problem? OK, just need diagnosis they wnt to treat Torri Matute RN 11/09/2024 4:34 PM Signed Called and left a detailed voicemail notifying Thomsa KWAN from [facility] of providers message. Clinic phone number was left for him to call and answer providers question. SOBEIDA Ng M Robin, RN 11/10/2024 10:55 AM Signed [facility]- returned call and given provider's message. Thomas reports patient had a left shoulder arthroplasty reverse procedure. Please fax order to [facility]. Em Romero APRN.MEDICAL RECORDS SUPERVISOR 11/10/2024 12:07 PM Signed ok Lizett Shetty LPN 11/10/2024 12:16 PM Signed Order faxed to [facility] as instructed. Allergies As of Date: 11/09/2024 Noted Allergy Reaction ATORVASTATIN 05/22/2013 15 - Contraindication-Medica l Avilez* Comments: myalgia, weakness proximal muscle PENICILLINS 07/16/2005 Comments: doesn't work Date Reviewed: 11/02/2024 Reviewed by: Em Romero APRN.MEDICAL RECORDS SUPERVISOR - Fully Assessed Reason for Visit: Orders [681] Primary Visit Diagnosis:History of left shoulder replacement [Z96.612] Order(s):CONSULT TO [employer] ATTENDANT [[id number]] Order #: [id number]: 1 FUTURE Prescriptions as of 11/10/2024 - meloxicam (MOBIC) 7.5 mg tablet Take 7.5 mg by mouth. - Acetaminophen 500 mg cap EVERY 8 HOURS - CARDIZEM CD 120 mg 24 hr capsule 120 mg. - acetaminophen (TYLENOL EXTRA STRENGTH) 500 mg tablet Take 1,000 mg by mouth every 8 hours as needed. - magnesium oxide (MAG-OX) 400 mg (241.3 mg magnesium) tablet Take 1 tablet by mouth once daily. - tamsulosin (FLOMAX) 0.4 mg Take 1 capsule by mouth daily at bedtime. - metoprolol tartrate, short acting, (LOPRESSOR) 50 mg tablet Take 1 tablet by mouth two times a day. - lansoprazole (PREVACID) 30 mg capsule Take 1 capsule by mouth two times a day. 1/2 hr before meal. - sertraline (ZOLOFT) 100 mg tablet Take 2 tablets by mouth once daily. - montelukast (SINGULAIR) 10 mg tablet Take 1 tablet by mouth daily at bedtime. - busPIRone (BUSPAR) 10 mg tablet Take 1 tablet by mouth two times a day. - donepezil (ARICEPT) 10 mg tablet Take 1 tablet by mouth daily at bedtime. - Mesalamine (LIALDA) 1.2 gram EC tablet Take 1 tablet by mouth two times a day. - propranolol (INDERAL) 40 mg tablet Take 1 tablet by mouth three times a day. As directed - folic acid 1 mg tablet Take 1 tablet by mouth two times a day. - sucralfate (CARAFATE) 1 gram tablet Take 1 tablet by mouth two times a day. - finasteride (PROSCAR) 5 mg tablet Take 5 mg by mouth once daily. - glucosamine/msm/chondrt /C/hyal (GLUCOSAMINE-CHONDROITI N-MSM ORAL) Take by mouth. - MV with Nuv-Muhwnijy-Hugmkg (CENTRUM SILVER) 0.4-300-250 mg-mcg-mcg tab Take 1 tablet by mouth once daily. - VIT C/E/ZN/COPPR/LUTEIN/GRACE THEA (PRESERVISION AREDS 2 ORAL) Take 2 capsules by mouth once daily. - coenzyme Q10 (COENZYME Q-10) 100 mg cap capsule Take 1 capsule by mouth. - cyanocobalamin (VITAMIN B-12) 1,000 mcg tab Take 1 tablet by mouth once daily. 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] 07/16/2005 UNILAT INGUINAL HERNIA [K40.90] 07/16/2005 Paralysis agitans [G20.A1] 07/16/2005 09/23/2011 GASTROINTEST HEMORR NOS [K92.2] 07/16/2005 BENIGN NEOPL RECTUM/ANUS [D12.8, D12.9] 07/16/2005 CARPAL TUNNEL SYNDROME [G56.00] 01/07/2006 INJURY ULNAR NERVE [S54.00XA] 05/13/2006 Benign prostatic hyperplasia with lower urinary*07/05/2007 BLADDER NECK OBSTRUCTION [N32.0] 07/05/2007 IMPOTENCE, ORGANIC ORIGN [N52.9] 07/05/2007 DIVERTICULOSIS COLON - NO HEMORRHAGE [K57.30] 2007 Localized osteoarthrosis, lower leg [M17.10] 07/25/2008 PURE HYPERCHOLESTEROLEM [E78.00] 12/27/2008 Essential hypertension [I10] 12/27/2008 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 [facility]INTMWS[facility] EVELIA NAILS JR. ([id number]) 1940 M Date Time Provider Department 11/06/24 LAILA RAMOS INTWS During your visit today, we recorded the following information about you: Estrellita Ortega RN 11/06/2024 1:39 PM Signed Thomas KWAN from [facility] care calls and states that OT has been having issues going out to see patient for OT evaluation. OT is going to evaluate patient today. Call if there is any questions. SOBEIDA Vanessa Terri, FRUIT HARVESTER.MEDICAL RECORDS SUPERVISOR 11/06/2024 4:13 PM Signed Does that mean they have not gone out yet? If so, noted. Allergies As of Date: 11/06/2024 Noted Allergy Reaction ATORVASTATIN 05/22/2013 15 - Contraindication-Medica l Avilez* Comments: myalgia, weakness proximal muscle PENICILLINS 07/16/2005 Comments: doesn't work Date Reviewed: 11/02/2024 Reviewed by: Em Romero APRN.MEDICAL RECORDS SUPERVISOR - Fully Assessed Reason for Visit: Occupational Therapy Evaluation [Other] Prescriptions as of 11/06/2024 - meloxicam (MOBIC) 7.5 mg tablet Take 7.5 mg by mouth. - Acetaminophen 500 mg cap EVERY 8 HOURS - CARDIZEM CD 120 mg 24 hr capsule 120 mg. - acetaminophen (TYLENOL EXTRA STRENGTH) 500 mg tablet Take 1,000 mg by mouth every 8 hours as needed. - magnesium oxide (MAG-OX) 400 mg (241.3 mg magnesium) tablet Take 1 tablet by mouth once daily. - tamsulosin (FLOMAX) 0.4 mg Take 1 capsule by mouth daily at bedtime. - metoprolol tartrate, short acting, (LOPRESSOR) 50 mg tablet Take 1 tablet by mouth two times a day. - lansoprazole (PREVACID) 30 mg capsule Take 1 capsule by mouth two times a day. 1/2 hr before meal. - sertraline (ZOLOFT) 100 mg tablet Take 2 tablets by mouth once daily. - montelukast (SINGULAIR) 10 mg tablet Take 1 tablet by mouth daily at bedtime. - busPIRone (BUSPAR) 10 mg tablet Take 1 tablet by mouth two times a day. - donepezil (ARICEPT) 10 mg tablet Take 1 tablet by mouth daily at bedtime. - Mesalamine (LIALDA) 1.2 gram EC tablet Take 1 tablet by mouth two times a day. - propranolol (INDERAL) 40 mg tablet Take 1 tablet by mouth three times a day. As directed - folic acid 1 mg tablet Take 1 tablet by mouth two times a day. - sucralfate (CARAFATE) 1 gram tablet Take 1 tablet by mouth two times a day. - finasteride (PROSCAR) 5 mg tablet Take 5 mg by mouth once daily. - glucosamine/msm/chondrt /C/hyal (GLUCOSAMINE-CHONDROITI N-MSM ORAL) Take by mouth. - MV with Lqg-Fklbmpyo-Ichwwf (CENTRUM SILVER) 0.4-300-250 mg-mcg-mcg tab Take 1 tablet by mouth once daily. - VIT C/E/ZN/COPPR/LUTEIN/GRACE THEA (PRESERVISION AREDS 2 ORAL) Take 2 capsules by mouth once daily. - coenzyme Q10 (COENZYME Q-10) 100 mg cap capsule Take 1 capsule by mouth. - cyanocobalamin (VITAMIN B-12) 1,000 mcg tab Take 1 tablet by mouth once daily. 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] 07/16/2005 UNILAT INGUINAL HERNIA [K40.90] 07/16/2005 Paralysis agitans [G20.A1] 07/16/2005 09/23/2011 GASTROINTEST HEMORR NOS [K92.2] 07/16/2005 BENIGN NEOPL RECTUM/ANUS [D12.8, D12.9] 07/16/2005 CARPAL TUNNEL SYNDROME [G56.00] 01/07/2006 INJURY ULNAR NERVE [S54.00XA] 05/13/2006 Benign prostatic hyperplasia with lower urinary*07/05/2007 BLADDER NECK OBSTRUCTION [N32.0] 07/05/2007 IMPOTENCE, ORGANIC ORIGN [N52.9] 07/05/2007 DIVERTICULOSIS COLON - NO HEMORRHAGE [K57.30] 2007 Localized osteoarthrosis, lower leg [M17.10] 07/25/2008 PURE HYPERCHOLESTEROLEM [E78.00] 12/27/2008 Essential hypertension [I10] 12/27/2008 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] 01/21/2009 Essential tremor [G25.0] 04/17/2009 Unspecified Retention of Urine [R33.9] 09/20/2009 UTI (lower urinary tract infection) [N39.0] 01/13/2010 08/22/2014 Unspecified Urethral Stricture [N35.919] 01/30/2010 Dizziness [R42] 09/12/2010 Atrial fibrillation [I48.91] 01/12/2011 05/24/2011 Metabolic syndrome [E88.810] 02/16/2011 IBS (irritable bowel syndrome) [K58.9] 02/16/2011 Pneumonia [J18.9] 02/17/2011 08/22/2014 PAF (paroxysmal atrial fibrillation) [I48.0] 05/24/2011 Trochanteric bursitis [M70.60] 04/26/2012 Sciatica [M54.30] 04/26/2012 Arthritis of knee [M17.10] 04/26/2012 Chronic ITP (idiopathic thrombocytopenia) [D69.*07/25/2012 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] 08/16/2012 Chronic nasal congestion [R09.81] 10/09/2012 S/P TKR (total knee replacement) [Z96.659] 09/07/2013 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 Normal [facility] EVELIA NAILS JR. ([id number]) 1940 M Date Time Provider Department 11/03/24 LAILA RAMOS INTMWS During your visit today, we recorded the following information about you: Chanelle Peguero LPN 11/03/2024 1:15 PM Signed Joan with [facility], PT calling to let you know they received orders for PT. Pt had left total shoulder arthoplasty done. Dr. Francisco will follow for ortho and they are checking to see if you will follow for medical. Please advise Joan back with verbal order. HENRIETTA Calderon Terri, APRN.MEDICAL RECORDS SUPERVISOR 11/03/2024 1:29 PM Signed ROSALVA Shetty Lizett, LPN 11/03/2024 3:27 PM Signed Left providers message on secure voicemail and ask to call office and ask to speak to a nurse with any questions or concerns Allergies As of Date: 11/03/2024 Noted Allergy Reaction ATORVASTATIN 05/22/2013 15 - Contraindication-Medica l Avilez* Comments: myalgia, weakness proximal muscle PENICILLINS 07/16/2005 Comments: doesn't work Date Reviewed: 11/02/2024 Reviewed by: Em Romero APRN.MEDICAL RECORDS SUPERVISOR - Fully Assessed Reason for Visit: [facility] calling for verbal order [Other] Cmt: PT Prescriptions as of 11/03/2024 - meloxicam (MOBIC) 7.5 mg tablet Take 7.5 mg by mouth. - Acetaminophen 500 mg cap EVERY 8 HOURS - CARDIZEM CD 120 mg 24 hr capsule 120 mg. - acetaminophen (TYLENOL EXTRA STRENGTH) 500 mg tablet Take 1,000 mg by mouth every 8 hours as needed. - magnesium oxide (MAG-OX) 400 mg (241.3 mg magnesium) tablet Take 1 tablet by mouth once daily. - tamsulosin (FLOMAX) 0.4 mg Take 1 capsule by mouth daily at bedtime. - metoprolol tartrate, short acting, (LOPRESSOR) 50 mg tablet Take 1 tablet by mouth two times a day. - lansoprazole (PREVACID) 30 mg capsule Take 1 capsule by mouth two times a day. 1/2 hr before meal. - sertraline (ZOLOFT) 100 mg tablet Take 2 tablets by mouth once daily. - montelukast (SINGULAIR) 10 mg tablet Take 1 tablet by mouth daily at bedtime. - busPIRone (BUSPAR) 10 mg tablet Take 1 tablet by mouth two times a day. - donepezil (ARICEPT) 10 mg tablet Take 1 tablet by mouth daily at bedtime. - Mesalamine (LIALDA) 1.2 gram EC tablet Take 1 tablet by mouth two times a day. - propranolol (INDERAL) 40 mg tablet Take 1 tablet by mouth three times a day. As directed - folic acid 1 mg tablet Take 1 tablet by mouth two times a day. - sucralfate (CARAFATE) 1 gram tablet Take 1 tablet by mouth two times a day. - finasteride (PROSCAR) 5 mg tablet Take 5 mg by mouth once daily. - glucosamine/msm/chondrt /C/hyal (GLUCOSAMINE-CHONDROITI N-MSM ORAL) Take by mouth. - MV with Zgd-Rfimptwa-Xaaybs (CENTRUM SILVER) 0.4-300-250 mg-mcg-mcg tab Take 1 tablet by mouth once daily. - VIT C/E/ZN/COPPR/LUTEIN/GRACE THEA (PRESERVISION AREDS 2 ORAL) Take 2 capsules by mouth once daily. - coenzyme Q10 (COENZYME Q-10) 100 mg cap capsule Take 1 capsule by mouth. - cyanocobalamin (VITAMIN B-12) 1,000 mcg tab Take 1 tablet by mouth once daily. 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] 07/16/2005 UNILAT INGUINAL HERNIA [K40.90] 07/16/2005 Paralysis agitans [G20.A1] 07/16/2005 09/23/2011 GASTROINTEST HEMORR NOS [K92.2] 07/16/2005 BENIGN NEOPL RECTUM/ANUS [D12.8, D12.9] 07/16/2005 CARPAL TUNNEL SYNDROME [G56.00] 01/07/2006 INJURY ULNAR NERVE [S54.00XA] 05/13/2006 Benign prostatic hyperplasia with lower urinary*07/05/2007 BLADDER NECK OBSTRUCTION [N32.0] 07/05/2007 IMPOTENCE, ORGANIC ORIGN [N52.9] 07/05/2007 DIVERTICULOSIS COLON - NO HEMORRHAGE [K57.30] 2007 Localized osteoarthrosis, lower leg [M17.10] 07/25/2008 PURE HYPERCHOLESTEROLEM [E78.00] 12/27/2008 Essential hypertension [I10] 12/27/2008 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] 01/21/2009 Essential tremor [G25.0] 04/17/2009 Unspecified Retention of Urine [R33.9] 09/20/2009 UTI (lower urinary tract infection) [N39.0] 01/13/2010 08/22/2014 Unspecified Urethral Stricture [N35.919] 01/30/2010 Dizziness [R42] 09/12/2010 Atrial fibrillation [I48.91] 01/12/2011 05/24/2011 Metabolic syndrome [E88.810] 02/16/2011 IBS (irritable bowel syndrome) [K58.9] 02/16/2011 Pneumonia [J18.9] 02/17/2011 08/22/2014 PAF (paroxysmal atrial fibrillation) [I48.0] 05/24/2011 Trochanteric bursitis [M70.60] 04/26/2012 Sciatica [M54.30] 04/26/2012 Arthritis of knee [M17.10] 04/26/2012 Chronic ITP (idiopathic thrombocytopenia) [D69.*07/25/2012 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 Normal [facility] CNOVon 11-02-2024 CNOV Office Visit (INTMWS ) EVELIA NAILS JR. ([id number]) 1940 M Date Time Provider Department 11/02/24 9:00 AM EM ROMERO INTMWS During your visit today, we recorded the following information about you: Pulse Respiration Blood pressure Weight 66/minute 16/minute 100/61 93.2 kg Em Romero APRN.MEDICAL RECORDS SUPERVISOR 11/02/2024 9:45 AM Signed SUBJECTIVE: Shingrix Vaccine(1 of 2) Never done RSV Vaccine(1 - 1-dose 75+ series) Never done DTaP,Tdap,Td Vaccine(2 - Tdap) due on 08/22/2018 HPI Evelia Nails Jr. is a 83 year old male. 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 Benign Prostatic Hyperplasia With Lower Urinary Tract Symptoms Bladder Neck Obstruction Impotence of Organic Origin DIVERTICULOSIS COLON - NO HEMORRHAGE Localized Osteoarthrosis, Lower Leg Pure Hypercholesterolemia Essential Hypertension Other Testicular Hypofunction Essential Tremor Retention of Urine, Unspecified Urethral Stricture Unspecified Dizziness Metabolic Syndrome Ibs (Irritable Bowel Syndrome) Paf (Paroxysmal Atrial Fibrillation) (Hcc) Trochanteric Bursitis Sciatica Arthritis of Knee 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 Chronic Nasal Congestion S/P Tkr (Total Knee Replacement) Rebekah Type 4 Hyperlipoproteinemia Macular Degeneration Chronic Urticaria Dysthymia Chronic Nonintractable Headache Anxiety Moderate Persistent Asthma Without Complication Non-Seasonal Allergic Rhinitis Chronic Midline Low Back Pain With Left-Sided Sciatica Ddd (Degenerative Disc Disease), Lumbar Mild Depression Chronic Bronchitis (Hcc) Esophageal Dysphagia Major Depressive Disorder, Single Episode, Mild (Hcc) Hypomagnesemia Ifg (Impaired Fasting Glucose) Mixed Hyperlipidemia Vitamin D Deficiency Presents today for routine follow-up visit. He is status post left shoulderReplacement surgery Dr. Kathie Liu orthopedics. He has a follow-up appointment with the surgeon later today. He notes he has remained in a sling since surgery. Has home health care coming out from [place], expects first visit on Wednesday. He reports resuming usual diet. He notes urinary retention immediately following surgery now resolved. He noted some constipation initially after surgery, treated with constipation remedies then proceeded to have diarrhea. Now having 1 BM daily. Notes does not look like his usual but no longer having diarrhea. HTN: Without report of headache, chest pain, palpitations, dyspnea, peripheral edema, orthopnea, fatigue, and PND. Last 14 Encounter BP Readings: Date: BP: 11/02/2024 100/61 09/25/2024 118/68 07/03/2024 120/62 06/15/2024 126/72 02/17/2024 112/66 11/05/2023 104/60 07/12/2023 116/70 03/01/2023 110/62 01/22/2023 118/68 11/02/2022 108/62 07/03/2022 108/62 06/30/2022 112/64 06/22/2022 112/66 01/27/2022 110/62 Hyperlipidemia. Doing well on current therapy . His most recent lipid panels are: Cholesterol, Total (mg/dL) Date Value 02/18/2024 148 10/29/2023 175 07/08/2020 158 09/05/2019 179 Total Cholesterol, Nonfasting (mg/dL) Date Value 05/22/2021 161 HDL Cholesterol (mg/dL) Date Value 02/18/2024 28 10/29/2023 35 07/08/2020 36 09/05/2019 30 HDL Cholesterol, Nonfasting (mg/dL) Date Value 05/22/2021 36 LDL Cholesterol (mg/dL) Date Value 02/18/2024 92 10/29/2023 109 07/08/2020 93 09/05/2019 100 LDL Cholesterol, Nonfasting (mg/dL) Date Value 05/22/2021 91 Triglyceride (mg/dL) Date Value 02/18/2024 139 10/29/2023 157 07/08/2020 145 09/05/2019 244 Triglycerides, Nonfasting (mg/dL) Date Value 05/22/2021 171 Crohns: reports currently stable, controlled. Review of Systems Constitutional: Negative. Gastrointestinal: Negative. Musculoskeletal: Positive for arthralgias. Neurological: Positive for tremors. Objective BP 100/61 Pulse 66 Resp 16 Wt 93.2 kg (205 lb 7.5 oz) BMI 28.46 kg/m? Physical Exam Vitals and nursing note reviewed. Constitutional: Appearance: Normal appearance. HENT: Head: Normocephalic and atraumatic. Eyes: Conjunctiva/sclera: Conjunctivae normal. Cardiovascular: Rate and Rhythm: Normal rate and regular rhythm. Pulses: Carotid pulses are 2+ on the right side and 2+ on the left side. Radial pulses are 2+ on the right side and 2+ on the left side. Heart sounds: Normal heart sounds. Pulmonary: Effort: Pulmonary effort is normal. Breath sounds: Normal breath sounds. Abdominal: General: Bowel sounds are normal. Palpations: Abdomen is soft. Musculoskeletal: Left shoulder: (more content not included)... [facility] EVEL[facility] NAIL[facility] JR. ([id number]) 1940 M Date Time Provider Department 10/31/24 LAILA RAMOS INTABDI During your visit today, we recorded the following information about you: Rosa East LPN 10/31/2024 3:33 PM Signed Sulema from [facility] calling she will be faxing a medication list to the office of the medications patient was taking at [facility]. computer shows patient has discharge follow up appt scheduled for with Em Romero NP. Laila Ramos MD 11/01/2024 1:05 PM Signed Noted--make sure available for the appointment with Nicole Morris LPN 11/02/2024 10:30 AM Signed Em did have for appt. Allergies As of Date: 10/31/2024 Noted Allergy Reaction ATORVASTATIN 05/22/2013 15 - Contraindication-Medica l Avilez* Comments: myalgia, weakness proximal muscle PENICILLINS 07/16/2005 Comments: doesn't work Date Reviewed: 10/04/2024 Reviewed by: Lili Hawk MD - Fully Assessed Reason for Visit: faxing list of medications patient was taking at [facility]hab [Other] Prescriptions as of 11/02/2024 - meloxicam (MOBIC) 7.5 mg tablet Take 7.5 mg by mouth. - Acetaminophen 500 mg cap EVERY 8 HOURS - CARDIZEM CD 120 mg 24 hr capsule 120 mg. - acetaminophen (TYLENOL EXTRA STRENGTH) 500 mg tablet Take 1,000 mg by mouth every 8 hours as needed. - magnesium oxide (MAG-OX) 400 mg (241.3 mg magnesium) tablet Take 1 tablet by mouth once daily. - tamsulosin (FLOMAX) 0.4 mg Take 1 capsule by mouth daily at bedtime. - metoprolol tartrate, short acting, (LOPRESSOR) 50 mg tablet Take 1 tablet by mouth two times a day. - lansoprazole (PREVACID) 30 mg capsule Take 1 capsule by mouth two times a day. 1/2 hr before meal. - sertraline (ZOLOFT) 100 mg tablet Take 2 tablets by mouth once daily. - montelukast (SINGULAIR) 10 mg tablet Take 1 tablet by mouth daily at bedtime. - busPIRone (BUSPAR) 10 mg tablet Take 1 tablet by mouth two times a day. - donepezil (ARICEPT) 10 mg tablet Take 1 tablet by mouth daily at bedtime. - Mesalamine (LIALDA) 1.2 gram EC tablet Take 1 tablet by mouth two times a day. - propranolol (INDERAL) 40 mg tablet Take 1 tablet by mouth three times a day. As directed - folic acid 1 mg tablet Take 1 tablet by mouth two times a day. - sucralfate (CARAFATE) 1 gram tablet Take 1 tablet by mouth two times a day. - finasteride (PROSCAR) 5 mg tablet Take 5 mg by mouth once daily. - glucosamine/msm/chondrt /C/hyal (GLUCOSAMINE-CHONDROITI N-MSM ORAL) Take by mouth. - MV with Njk-Tvkklzop-Gkhjkb (CENTRUM SILVER) 0.4-300-250 mg-mcg-mcg tab Take 1 tablet by mouth once daily. - VIT C/E/ZN/COPPR/LUTEIN/GRACE THEA (PRESERVISION AREDS 2 ORAL) Take 2 capsules by mouth once daily. - coenzyme Q10 (COENZYME Q-10) 100 mg cap capsule Take 1 capsule by mouth. - cyanocobalamin (VITAMIN B-12) 1,000 mcg tab Take 1 tablet by mouth once daily. 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] 07/16/2005 UNILAT INGUINAL HERNIA [K40.90] 07/16/2005 Paralysis agitans [G20.A1] 07/16/2005 09/23/2011 GASTROINTEST HEMORR NOS [K92.2] 07/16/2005 BENIGN NEOPL RECTUM/ANUS [D12.8, D12.9] 07/16/2005 CARPAL TUNNEL SYNDROME [G56.00] 01/07/2006 INJURY ULNAR NERVE [S54.00XA] 05/13/2006 Benign prostatic hyperplasia with lower urinary*07/05/2007 BLADDER NECK OBSTRUCTION [N32.0] 07/05/2007 IMPOTENCE, ORGANIC ORIGN [N52.9] 07/05/2007 DIVERTICULOSIS COLON - NO HEMORRHAGE [K57.30] 2007 Localized osteoarthrosis, lower leg [M17.10] 07/25/2008 PURE HYPERCHOLESTEROLEM [E78.00] 12/27/2008 Essential hypertension [I10] 12/27/2008 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] 01/21/2009 Essential tremor [G25.0] 04/17/2009 Unspecified Retention of Urine [R33.9] 09/20/2009 UTI (lower urinary tract infection) [N39.0] 01/13/2010 08/22/2014 Unspecified Urethral Stricture [N35.919] 01/30/2010 Dizziness [R42] 09/12/2010 Atrial fibrillation [I48.91] 01/12/2011 05/24/2011 Metabolic syndrome [E88.810] 02/16/2011 IBS (irritable bowel syndrome) [K58.9] 02/16/2011 Pneumonia [J18.9] 02/17/2011 08/22/2014 PAF (paroxysmal atrial fibrillation) [I48.0] 05/24/2011 Trochanteric bursitis [M70.60] 04/26/2012 Sciatica [M54.30] 04/26/2012 Arthritis of knee [M17.10] 04/26/2012 Chronic ITP (idiopathic thrombocytopenia) [D69.*07/25/2012 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 Normal [facility] 10-25-2024 CNPN Telephone (INTMWS) EVELIA NAILS JR. 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 [facility] is requesting orders for halfway, physical therapy, occupational therapy, and home health aide and is asking if PCP will follow? Please call Cesilia at [facility] at # [phone] extension [phone], if PCP agreeable to follow. SOBEIDA Vanessa Kim E, LPN 10/27/2024 10:58 AM Signed Cesilia calling again needing to know if will cover home care . They are wanting to start care on Wednesday? Please review and advise. HENRIETTA Alva Liza D, MD 10/27/2024 7:40 PM Signed Tried to call number, but office closed. 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 Patient not on office so did not talk to them. Will follow and cover Home Care--see if can call someone on Wednesday AM Rosa East LPN 10/28/2024 9:02 AM Signed Phoned and got real estate consultant for [facility] and was transferred to nurse Frederick and went over notes from Dr Ramos with understanding. Aida Griffin RN 11/03/2024 2:52 PM Signed Jakob PT with [facility] calls to report he did a PT eval only with patient as patient didn't feel he had any further needs. Patient looks to be following with [facility]. Closing encounter. Nothing further needed. Aida Griffin RN Allergies As of Date: 10/25/2024 Noted Allergy Reaction ATORVASTATIN 05/22/2013 15 - Contraindication-Medica l Avilez* Comments: myalgia, weakness proximal muscle PENICILLINS 07/16/2005 Comments: doesn't work Date Reviewed: 10/04/2024 Reviewed by: Lili Hawk MD - Fully Assessed Reason for Visit: Home Health Orders [Other] Prescriptions as of 11/03/2024 - meloxicam (MOBIC) 7.5 mg tablet Take 7.5 mg by mouth. - Acetaminophen 500 mg cap EVERY 8 HOURS - CARDIZEM CD 120 mg 24 hr capsule 120 mg. - acetaminophen (TYLENOL EXTRA STRENGTH) 500 mg tablet Take 1,000 mg by mouth every 8 hours as needed. - magnesium oxide (MAG-OX) 400 mg (241.3 mg magnesium) tablet Take 1 tablet by mouth once daily. - tamsulosin (FLOMAX) 0.4 mg Take 1 capsule by mouth daily at bedtime. - metoprolol tartrate, short acting, (LOPRESSOR) 50 mg tablet Take 1 tablet by mouth two times a day. - lansoprazole (PREVACID) 30 mg capsule Take 1 capsule by mouth two times a day. 1/2 hr before meal. - sertraline (ZOLOFT) 100 mg tablet Take 2 tablets by mouth once daily. - montelukast (SINGULAIR) 10 mg tablet Take 1 tablet by mouth daily at bedtime. - busPIRone (BUSPAR) 10 mg tablet Take 1 tablet by mouth two times a day. - donepezil (ARICEPT) 10 mg tablet Take 1 tablet by mouth daily at bedtime. - Mesalamine (LIALDA) 1.2 gram EC tablet Take 1 tablet by mouth two times a day. - propranolol (INDERAL) 40 mg tablet Take 1 tablet by mouth three times a day. As directed - folic acid 1 mg tablet Take 1 tablet by mouth two times a day. - sucralfate (CARAFATE) 1 gram tablet Take 1 tablet by mouth two times a day. - finasteride (PROSCAR) 5 mg tablet Take 5 mg by mouth once daily. - glucosamine/msm/chondrt /C/hyal (GLUCOSAMINE-CHONDROITI N-MSM ORAL) Take by mouth. - MV with Ovf-Gcqmjzym-Wmdzog (CENTRUM SILVER) 0.4-300-250 mg-mcg-mcg tab Take 1 tablet by mouth once daily. - VIT C/E/ZN/COPPR/LUTEIN/GRACE THEA (PRESERVISION AREDS 2 ORAL) Take 2 capsules by mouth once daily. - coenzyme Q10 (COENZYME Q-10) 100 mg cap capsule Take 1 capsule by mouth. - cyanocobalamin (VITAMIN B-12) 1,000 mcg tab Take 1 tablet by mouth once daily. 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] 07/16/2005 UNILAT INGUINAL HERNIA [K40.90] 07/16/2005 Paralysis agitans [G20.A1] 07/16/2005 09/23/2011 GASTROINTEST HEMORR NOS [K92.2] 07/16/2005 BENIGN NEOPL RECTUM/ANUS [D12.8, D12.9] 07/16/2005 CARPAL TUNNEL SYNDROME [G56.00] 01/07/2006 INJURY ULNAR NERVE [S54.00XA] 05/13/2006 Benign prostatic hyperplasia with lower urinary*07/05/2007 BLADDER NECK OBSTRUCTION [N32.0] 07/05/2007 IMPOTENCE, ORGANIC ORIGN [N52.9] 07/05/2007 DIVERTICULOSIS COLON - NO HEMORRHAGE [K57.30] 2007 Localized osteoarthrosis, lower leg [M17.10] 07/25/2008 PURE HYPERCHOLESTEROLEM [E78.00] 12/27/2008 Essential hypertension [I10] 12/27/2008 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 Normal [facility] XR SHOULDER MINIMUM 2 VIEWS LEFTon 10-23-2024 XR SHOULDER MINIMUM 2 VIEWS LEFT ORIGINAL EXAMINATION: 3 XRAY VIEWS OF THE LEFT PPEXPOYI35/25/2024 12:20 pm COMPARISON: None HISTORY: ORDERING SYSTEM PROVIDED HISTORY: Reason for Exam: left shoulder pain s/p fall, surgery, FINDINGS: There is a reverse shoulder prosthesis that appears to have satisfactory alignment. No periprosthetic fracture, dislocation or other complication is evident. Normal AC joint. Overall imaging is limited by technique and body habitus. IMPRESSION: No obvious periprosthetic fracture or dislocation is seen. Interpreted by: Subhash Nayak MD Preliminary Report By: Subhash Nayak MD Electronically signed By Subhash Nayak MD Dictated Date: 10/23/2024 3:52:13 PM Prelim Date: 10/23/2024 3:53:17 PM Sign Date: 10/23/2024 3:53:17 PM Ordering Provider: DANUTA GONZALEZ [facility] .GFRon 10-20-2024 GFR >60 [facility]IN Comment on above: Result Comment: GFR Population mean for , Non- Americans Ages 20-29 = 116 mL/min/1.73 sq.m. Ages 30-39 = 107 mL/min/1.73 sq.m. Ages 40-49 = 99 mL/min/1.73 sq.m. Ages 50-59 = 93 mL/min/1.73 sq.m. Ages 60-69 = 85 mL/min/1.73 sq.m. Ages 70+ = 75 mL/min/1.73 sq.m. Chronic Kidney Disease: Less than 60 mL/min/1.73 square meters End Stage Renal Disease: Less than 15 mL/min/1.73 square meters Performed By: #### B MP, GFR #### [facility] [address] [place] [address] GFR Non- >60 [facility] MAIN Comment on above: Result Comment: GFR Population mean for , Non- Americans Ages 20-29 = 116 mL/min/1.73 sq.m. Ages 30-39 = 107 mL/min/1.73 sq.m. Ages 40-49 = 99 mL/min/1.73 sq.m. Ages 50-59 = 93 mL/min/1.73 sq.m. Ages 60-69 = 85 mL/min/1.73 sq.m. Ages 70+ = 75 mL/min/1.73 sq.m. Chronic Kidney Disease: Less than 60 mL/min/1.73 square meters End Stage Renal Disease: Less than 15 mL/min/1.73 square meters Performed By: #### B MP, GFR #### [address] [address] BMPon 10-20-2024 BUN/Creatinine Ratio 22.4 ratio High 10.0-22.0 [facility] Comment on above: Performed By: #### B MP, GFR #### [address] [address] Calcium [Mass/Vol] 9.0 mg/dL Normal 8.7-10.4 [facility] Comment on above: Performed By: #### B MP, GFR #### [address] [address] Chloride [Moles/Vol] 101 mmol/L Normal 98-110 [facility] Comment on above: Performed By: #### B MP, GFR #### [address] [address] CO2 [Moles/Vol] 27 mmol/L Normal 22-32 [facility] Comment on above: Performed By: #### B MP, GFR #### [address] [address] Creatinine [Mass/Vol] 1.07 mg/dL Normal 0.60-1.40 [facility] Comment on above: Result Comment: Test ing performed on [employer] analyzer using enzymatic creatinine methodology. Performed By: #### B MP, GFR #### [address] [address] Electrolyte Balance 8.0 mEq/L Normal 4.0-15.0 [facility] Comment on above: Performed By: #### B MP, GFR #### [place] [id number] [place] [address] Glucose [Mass/Vol] 96 mg/dL Normal 82-115 [facility] Comment on above: Performed By: #### B MP, GFR #### [place] [id number] [place] [address] Potassium [Moles/Vol] 4.9 mmol/L Normal 3.5-5.0 [facility] Comment on above: Performed By: #### B MP, GFR #### [address] [address] Sodium [Moles/Vol] 136 mmol/L Normal 136-145 [facility] Comment on above: Performed By: #### B MP, GFR #### [address] [address] Urea nitrogen [Mass/Vol] 24.0 mg/dL High 8.0-22.0 [facility] Comment on above: Performed By: #### B MP, GFR #### [address] [address] LABORATORYOrdered By: SYSTEM SYSTEM on 10-20-2024 Calcium [Mass/Vol] 9.0 mg/dL Normal 8.7 - 10. 4 mg/dL ADM SS Chloride [Moles/Vol] 101 mmol/L Normal 98 - 11 0 mEq/L ADM SS CO2 [Moles/Vol] 27 mmol/L Normal 22 - 32 mEq/L ADM SS Creatinine [Mass/Vol] 1.07 mg/dL Normal 0.60 - 1.40 mg/dL ADM SS Comment on above: Interpretive Data: T esting performed on [employer] analyzer using enzymatic creatinine methodology. Electrolyte Balance 8.0 mEq/L Normal 4.0 - 15 .0 mEq/L ADM SS GFR/1.73 sq M.predicted among blacks MDRD (S/P/Bld) [Vol rate/Area] ml/min/1.73sqm Invalid Interpretation Code Chemistry S Comment on above: Interpretive Data: GFR Population mean for , Non- Americans Ages 20-29 = 116 mL/min/1.73 sq.m. Ages 30-39 = 107 mL/min/1.73 sq.m. Ages 40-49 = 99 mL/min/1.73 sq.m. Ages 50-59 = 93 mL/min/1.73 sq.m. Ages 60-69 = 85 mL/min/1.73 sq.m. Ages 70+ = 75 mL/min/1.73 sq.m. Chronic Kidney Disease: Less than 60 mL/min/1.73 square meters End Stage Renal Disease: Less than 15 mL/min/1.73 square meters GFR/1.73 sq M.predicted among non-blacks MDRD (S/P/Bld) [Vol rate/Area] ml/min/1.73sqm Invalid Interpretation Code Chemistry S Comment on above: Interpretive Data: GFR Population mean for , Non- Americans Ages 20-29 = 116 mL/min/1.73 sq.m. Ages 30-39 = 107 mL/min/1.73 sq.m. Ages 40-49 = 99 mL/min/1.73 sq.m. Ages 50-59 = 93 mL/min/1.73 sq.m. Ages 60-69 = 85 mL/min/1.73 sq.m. Ages 70+ = 75 mL/min/1.73 sq.m. Chronic Kidney Disease: Less than 60 mL/min/1.73 square meters End Stage Renal Disease: Less than 15 mL/min/1.73 square meters Glucose [Mass/Vol] 96 mg/dL Normal 82 - 115 mg/dL ADM SS Potassium [Moles/Vol] 4.9 mmol/L Normal 3.5 - 5.0 mEq/L ADM SS Sodium [Moles/Vol] 136 mmol/L Normal 136 - 145 mEq/L ADM SS Urea nitrogen [Mass/Vol] 24.0 mg/dL High 8.0 - 22.0 mg/dL ADM SS Urea nitrogen/Creatinine [Mass ratio] 22.4 ratio High 10.0 - 22.0 ratio ADM SS .GFRon 10-18-2024 GFR Non- >60 Normal [facility] MAIN Comment on above: Result Comment: GFR Population mean for , Non- Americans Ages 20-29 = 116 mL/min/1.73 sq.m. Ages 30-39 = 107 mL/min/1.73 sq.m. Ages 40-49 = 99 mL/min/1.73 sq.m. Ages 50-59 = 93 mL/min/1.73 sq.m. Ages 60-69 = 85 mL/min/1.73 sq.m. Ages 70+ = 75 mL/min/1.73 sq.m. Chronic Kidney Disease: Less than 60 mL/min/1.73 square meters End Stage Renal Disease: Less than 15 mL/min/1.73 square meters Performed By: #### D IFF, CBC, MORPH, BMP, GFR #### [address] [address] GFR >60 Normal [facility] Comment on above: Result Comment: GFR Population mean for , Non- Americans Ages 20-29 = 116 mL/min/1.73 sq.m. Ages 30-39 = 107 mL/min/1.73 sq.m. Ages 40-49 = 99 mL/min/1.73 sq.m. Ages 50-59 = 93 mL/min/1.73 sq.m. Ages 60-69 = 85 mL/min/1.73 sq.m. Ages 70+ = 75 mL/min/1.73 sq.m. Chronic Kidney Disease: Less than 60 mL/min/1.73 square meters End Stage Renal Disease: Less than 15 mL/min/1.73 square meters Performed By: #### D IFF, CBC, MORPH, BMP, GFR #### [address] [address] .Manual Diffon 10-18-2024 Bands 1.0 % Normal 0.0-5.0 [facility] Comment on above: Performed By: #### D IFF, CBC, MORPH, BMP, GFR #### [address] [address] Basophil %, Manual 0.0 % Normal 0.0-2.5 [facility] Comment on above: Performed By: #### D IFF, CBC, MORPH, BMP, GFR #### [address] [address] Basophil, Abs Manual 0.0 10 3/mcL Normal 0.0-0.3 [facility] Comment on above: Performed By: #### D IFF, CBC, MORPH, BMP, GFR #### [address] [address] Eosinophil %, Manual 5.0 % Normal 0.0-6.0 [facility] Comment on above: Performed By: #### D IFF, CBC, MORPH, BMP, GFR #### [address] [address] Eosinophil, Abs Manual 0.3 10 3/mcL Normal 0.0-0.7 [facility] Comment on above: Performed By: #### D IFF, CBC, MORPH, BMP, GFR #### [address] [address] Lymphocyte %, Manual 18.0 % Low 20.0-40.0 [facility] Comment on above: Performed By: #### D IFF, CBC, MORPH, BMP, GFR #### [address] [address] Lymphocyte, Abs Manual 1.3 10 3/mcL Normal 0.9-4.3 [facility] Comment on above: Performed By: #### D IFF, CBC, MORPH, BMP, GFR #### [address] [address] Monocyte %, Manual 4.0 % Normal 2.0-13.0 [facility] Comment on above: Performed By: #### D IFF, CBC, MORPH, BMP, GFR #### [address] [address] Monocyte, Abs Manual 0.3 10 3/mcL Normal 0.1-1.4 [facility] Comment on above: Performed By: #### D IFF, CBC, MORPH, BMP, GFR #### [address] [address] Neutrophil %, Manual 72.0 % Normal 50.0-75.0 [facility] Comment on above: Performed By: #### D IFF, CBC, MORPH, BMP, GFR #### [address] [address] Neutrophil, Abs Manual 5.1 10 3/mcL Normal 2.3-8.1 [facility] Comment on above: Performed By: #### D IFF, CBC, MORPH, BMP, GFR #### [place] [address] Nucleated RBC 0.0 /100 WBC Normal [facility] Comment on above: Performed By: #### D IFF, CBC, MORPH, BMP, GFR #### [place] [address] .Morphon 10-18-2024 Anisocytosis Ql (Bld) 1+ Normal [facility] Comment on above: Performed By: #### D IFF, CBC, MORPH, BMP, GFR #### [place] [address] Ovalocytes 1+ Normal [facility] Comment on above: Performed By: #### D IFF, CBC, MORPH, BMP, GFR #### [place] [address] Platelet Estimate Normal [facility] Comment on above: Performed By: #### D IFF, CBC, MORPH, BMP, GFR #### [place] [address] Poik 1+ Normal [facility] Comment on above: Performed By: #### D IFF, CBC, MORPH, BMP, GFR #### [address] 10-18-2024 BUN/Creatinine Ratio 23.2 ratio High 10.0-22.0 [facility] Comment on above: Performed By: #### D IFF, CBC, MORPH, BMP, GFR #### [place] [address] Calcium [Mass/Vol] 9.0 mg/dL Normal 8.7-10.4 [facility] Comment on above: Performed By: #### D IFF, CBC, MORPH, BMP, GFR #### [place] [address] Chloride [Moles/Vol] 104 mmol/L Normal 98-110 [facility] Comment on above: Performed By: #### D IFF, CBC, MORPH, BMP, GFR #### [place] [address] CO2 [Moles/Vol] 25 mmol/L Normal 22-32 [facility] Comment on above: Performed By: #### D IFF, CBC, MORPH, BMP, GFR #### [address] [address] Creatinine [Mass/Vol] 0.95 mg/dL Normal 0.60-1.40 [facility] Comment on above: Result Comment: Test ing performed on [employer] analyzer using enzymatic creatinine methodology. Performed By: #### D IFF, CBC, MORPH, BMP, GFR #### [address] [address] Electrolyte Balance 9.0 mEq/L Normal 4.0-15.0 [facility] Comment on above: Performed By: #### D IFF, CBC, MORPH, BMP, GFR #### [address] [address] Glucose [Mass/Vol] 91 mg/dL Normal 82-115 [facility] Comment on above: Performed By: #### D IFF, CBC, MORPH, BMP, GFR #### [address] [address] Potassium [Moles/Vol] 5.0 mmol/L Normal 3.5-5.0 [facility] Comment on above: Performed By: #### D IFF, CBC, MORPH, BMP, GFR #### [address] [address] Sodium [Moles/Vol] 138 mmol/L Normal 136-145 [facility] Comment on above: Performed By: #### D IFF, CBC, MORPH, BMP, GFR #### [address] [address] Urea nitrogen [Mass/Vol] 22.0 mg/dL Normal 8.0-22.0 [facility] Comment on above: Performed By: #### D IFF, CBC, MORPH, BMP, GFR #### [address] [address] CBCon 10-18-2024 Erythrocyte distribution width (RBC) [Ratio] 16.4 % High 11.5-15.5 [facility] Comment on above: Performed By: #### D IFF, CBC, MORPH, BMP, GFR #### [place] [address] Hematocrit (Bld) [Volume fraction] 36.2 % Low 40.0-52.0 [facility] Comment on above: Performed By: #### D IFF, CBC, MORPH, BMP, GFR #### [place] [address] Hgb 11.9 G/dL Low 13.0-17.5 [facility] Comment on above: Performed By: #### D IFF, CBC, MORPH, BMP, GFR #### [place] [address] MCH (RBC) [Entitic mass] 27.3 pg Normal 27.0-33.0 [facility] Comment on above: Performed By: #### D IFF, CBC, MORPH, BMP, GFR #### [place] [address] MCHC 32.8 G/dL Normal 32.0-36.0 [facility] Comment on above: Performed By: #### D IFF, CBC, MORPH, BMP, GFR #### [place] [address] MCV (RBC) [Entitic vol] 83.2 fL Normal 81.0-100.0 [facility] Comment on above: Performed By: #### D IFF, CBC, MORPH, BMP, GFR #### [place] [address] Platelet 166 10 3/mcL Normal 150-450 [facility] Comment on above: Performed By: #### D IFF, CBC, MORPH, BMP, GFR #### [place] [address] Platelet mean volume (Bld) [Entitic vol] 8.6 fL Normal 6.4-10.5 [facility] Comment on above: Performed By: #### D IFF, CBC, MORPH, BMP, GFR #### [place] [address] RBC 4.35 10 6/mcL Low 4.50-6.00 [facility] Comment on above: Performed By: #### D IFF, CBC, MORPH, BMP, GFR #### [address] [address] WBC 7.1 10 3/mcL Normal 4.5-10.8 [facility] Comment on above: Performed By: #### D IFF, CBC, MORPH, BMP, GFR #### [address] [address] LABORATORYOrdered By: SYSTEM SYSTEM on 10-18-2024 Anisocytosis Ql (Bld) 1+ *NA* (10/18/24 7:32 AM) Invalid Interpretation Code AH Workflow SS Band form neutrophils/100 WBC (Bld) 1.0 % Normal 0.0 - 5.0 % AH Workflow SS Basophils (Bld) [#/Vol] 0.0 103/mcL Normal 0.0 - 0.3 10^3/mcL AH Workflow SS Basophils/100 WBC (Bld) 0.0 % Normal 0.0 - 2.5 % AH Workflow SS Calcium [Mass/Vol] 9.0 mg/dL Normal 8.7 - 10. 4 mg/dL AH ADM SS Chloride [Moles/Vol] 104 mmol/L Normal 98 - 11 0 mEq/L AH ADM SS CO2 [Moles/Vol] 25 mmol/L Normal 22 - 32 mEq/L AH ADM SS Creatinine [Mass/Vol] 0.95 mg/dL Normal 0.60 - 1.40 mg/dL AH ADM SS Comment on above: Interpretive Data: T esting performed on [employer] analyzer using enzymatic creatinine methodology. Electrolyte Balance 9.0 mEq/L Normal 4.0 - 15 .0 mEq/L ADM SS Eosinophils (Bld) [#/Vol] 0.3 103/mcL Normal 0.0 - 0.7 10^3/mcL AH Workflow SS Eosinophils/100 WBC (Bld) 5.0 % Normal 0.0 - 6.0 % AH Workflow SS Erythrocyte distribution width (RBC) [Ratio] 16.4 % High 11.5 - 15.5 % AH Workflow SS GFR/1.73 sq M.predicted among blacks MDRD (S/P/Bld) [Vol rate/Area] ml/min/1.73sqm Invalid Interpretation Code [facility] Comment on above: Interpretive Data: GFR Population mean for , Non- Americans Ages 20-29 = 116 mL/min/1.73 sq.m. Ages 30-39 = 107 mL/min/1.73 sq.m. Ages 40-49 = 99 mL/min/1.73 sq.m. Ages 50-59 = 93 mL/min/1.73 sq.m. Ages 60-69 = 85 mL/min/1.73 sq.m. Ages 70+ = 75 mL/min/1.73 sq.m. Chronic Kidney Disease: Less than 60 mL/min/1.73 square meters End Stage Renal Disease: Less than 15 mL/min/1.73 square meters GFR/1.73 sq M.predicted among non-blacks MDRD (S/P/Bld) [Vol rate/Area] ml/min/1.73sqm Invalid Interpretation Code [facility] Comment on above: Interpretive Data: GFR Population mean for , Non- Americans Ages 20-29 = 116 mL/min/1.73 sq.m. Ages 30-39 = 107 mL/min/1.73 sq.m. Ages 40-49 = 99 mL/min/1.73 sq.m. Ages 50-59 = 93 mL/min/1.73 sq.m. Ages 60-69 = 85 mL/min/1.73 sq.m. Ages 70+ = 75 mL/min/1.73 sq.m. Chronic Kidney Disease: Less than 60 mL/min/1.73 square meters End Stage Renal Disease: Less than 15 mL/min/1.73 square meters Glucose [Mass/Vol] 91 mg/dL Normal 82 - 115 mg/dL ADM SS Hematocrit (Bld) [Volume fraction] 36.2 % Low 40.0 - 52.0 % Workflow SS Hemoglobin (Bld) [Mass/Vol] 11.9 G/dL Low 13.0 - 17.5 G/dL AH Workflow SS Lymphocytes (Bld) [#/Vol] 1.3 103/mcL Normal 0.9 - 4.3 10^3/mcL Workflow SS Lymphocytes/100 WBC (Bld) 18.0 % Low 20.0 - 40.0 % Workflow SS MCH (RBC) [Entitic mass] 27.3 pg Normal 27.0 - 33.0 pg AH Workflow SS MCHC 32.8 G/dL Normal 32.0 - 36.0 G/dL AH Workflow SS MCV (RBC) [Entitic vol] 83.2 fL Normal 81.0 - 100.0 fL AH Workflow SS Monocytes (Bld) [#/Vol] 0.3 103/mcL Normal 0.1 - 1.4 10^3/mcL AH Workflow SS Monocytes/100 WBC (Bld) 4.0 % Normal 2.0 - 13.0 % AH Workflow SS Neutrophils (Bld) [#/Vol] 5.1 103/mcL Normal 2.3 - 8.1 10^3/mcL AH Workflow SS Neutrophils/100 WBC (Bld) 72.0 % Normal 50.0 - 75.0 % AH Workflow SS Nucleated RBC 0.0 /100 WBC Invalid Interpretation Code AH Workflow SS Ovalocytes LM Ql (Bld) 1+ *NA* (10/18/24 7:32 AM) Invalid Interpretation Code AH Workflow SS Platelet mean volume (Bld) [Entitic vol] 8.6 fL Normal 6.4 - 10.5 fL AH Workflow SS Platelets (Bld) [#/Vol] 166 103/mcL Normal 150 - 450 10^3/mcL AH Workflow SS Platelets LM Ql (Bld) Normal *NA* (10/18/24 7:32 AM) Invalid Interpretation Code Workflow SS Poikilocytosis LM Ql (Bld) 1+ *NA* (10/18/24 7:32 AM) Invalid Interpretation Code AH Workflow SS Potassium [Moles/Vol] 5.0 mmol/L Normal 3.5 - 5.0 mEq/L AH ADM SS RBC (Bld) [#/Vol] 4.35 106/mcL Low 4.50 - 6.0 0 10^6/mcL AH Workflow SS Sodium [Moles/Vol] 138 mmol/L Normal 136 - 145 mEq/L AH ADM SS Urea nitrogen [Mass/Vol] 22.0 mg/dL Normal 8.0 - 22.0 mg/dL AH ADM SS Urea nitrogen/Creatinine [Mass ratio] 23.2 ratio High 10.0 - 22.0 ratio AH ADM SS WBC (Bld) [#/Vol] 7.1 103/mcL Normal 4.5 - 10.8 10^3/mcL AH Workflow SS Basic Metabolic Profile (BMP )on 10-13-2024 BUN/CRE 14.8 RATIO Normal 10-20 [facility] Comment on above: Performed By: #### L 500.2500, L100.0500 ####[facility] [address] [place], [address] CA,Total 8.7 mg/dL Normal 8.5-10.1 [facility] Comment on above: Performed By: #### L 500.2500, L100.0500 ####[facility] [address] [place], [address] Chloride [Moles/Vol] 106 mmol/L Normal 98-107 [facility] Comment on above: Performed By: #### L 500.2500, L100.0500 ####[facility] [address] [place], [address] CO2 [Moles/Vol] 26.0 mmol/L Normal 21.0-32.0 [facility] Comment on above: Performed By: #### L 500.2500, L100.0500 ####[facility] [address] [place], [address] Creatinine [Mass/Vol] 1.15 mg/dL Normal 0.70-1.30 [facility] Comment on above: Result Comment: The validity of the calculated GFR GFRAA in patients over 70 years has not been determined. Clinical correlation is essential. Performed By: #### L 500.2500, L100.0500 ####[facility] [address] [place], [address] ECRCL 56.99 ml/min Normal [facility] Comment on above: Performed By: #### L 500.2500, L100.0500 ####[facility] [address] [place], [address] EST GFR - AA 78 mL/min Normal >60 [facility] Comment on above: Result Comment: Afri can Macedonian GFR Calc Performed By: #### L 500.2500, L100.0500 ####[facility] [address] [place], [address] GAP 5 Normal 5-15 [facility] Comment on above: Performed By: #### L 500.2500, L100.0500 ####[facility] [address] [place], [address] GFR/1.73 sq M.predicted among non-blacks MDRD (S/P/Bld) [Vol rate/Area] 64 mL/min/{1.73_m2} Normal >60 [facility] Comment on above: Result Comment: Non- GFR Calc Performed By: #### L 500.2500, L100.0500 ####[facility] [address] [place], [address] Glucose [Mass/Vol] 101 mg/dL Normal 74-106 [facility] Comment on above: Result Comment: Fast ing Glucose result from 100 to 125 mg/dL suggests IMPAIRED HOMEOSTASIS per A.D.A. criteria. Performed By: #### L 500.2500, L100.0500 ####[facility] [address] [place], [address] Potassium [Moles/Vol] 3.9 mmol/L Normal 3.5-5.1 [facility] Comment on above: Performed By: #### L 500.2500, L100.0500 ####[facility] [address] [place], [address] Sodium [Moles/Vol] 137 mmol/L Normal 136-145 [facility] Comment on above: Performed By: #### L 500.2500, L100.0500 ####[facility] [address] [place], [address] Urea nitrogen [Mass/Vol] 17 mg/dL Normal 7-18 [facility] Comment on above: Performed By: #### L 500.2500, L100.0500 ####[facility] [address] [place], [address] CBC-Complete Blood Cnt No Di ffon 10-13-2024 Erythrocyte distribution width (RBC) [Ratio] 15.9 % High 11.6-14.6 [facility] Comment on above: Performed By: #### L 500.2500, L100.0500 #### [facility] [address] [place], [address] Hematocrit (Bld) [Volume fraction] 33.7 % Low 40-54 [facility] Comment on above: Performed By: #### L 500.2500, L100.0500 #### [facility] [address] [place], [address] Hemoglobin (Bld) [Mass/Vol] 10.5 g/dL Low 13.0-16.5 [facility] Comment on above: Performed By: #### L 500.2500, L100.0500 #### [facility] [address] [place], [address] MCH (RBC) [Entitic mass] 26.9 pg Low 27.0-32.0 [facility] Comment on above: Performed By: #### L 500.2500, L100.0500 #### [facility] [address] [place], [address] MCHC (RBC) [Mass/Vol] 31.2 g/dL Low 32-36 [facility] Comment on above: Performed By: #### L 500.2500, L100.0500 #### [facility] [address] [place], [address] MCV (RBC) [Entitic vol] 86.4 fL Normal 80-94 [facility] Comment on above: Performed By: #### L 500.2500, L100.0500 #### [facility] [address] [place], [address] Platelet mean volume (Bld) [Entitic vol] 10.9 fL Normal 6.2-12.0 [facility] Comment on above: Performed By: #### L 500.2500, L100.0500 #### [facility] [address] [place], [address] Platelets (Bld) [#/Vol] 135 10*3/uL Low 150-450 [facility] Comment on above: Performed By: #### L 500.2500, L100.0500 #### [facility] [address] [place], [address] RBC (Bld) [#/Vol] 3.90 10*6/uL Low 4.6-6.2 [facility] Comment on above: Performed By: #### L 500.2500, L100.0500 #### [facility] [address] [place], [address] RDW SD 49.6 fl High 35.1-43.9 [facility] Comment on above: Performed By: #### L 500.2500, L100.0500 #### [facility] [address] [place], [address] WBC (Bld) [#/Vol] 9.4 10*3/uL Normal 4.4-11.0 [facility] Comment on above: Performed By: #### L 500.2500, L100.0500 #### [facility] [address] [place], [address] Discharge Instructionon 09-29 Discharge Instruction [facility] Medical Records Department [address] [place] [address] Instructions for Home/Discharge Instructions 10/13/24 1129 MR#: [id number] Acct: [id number] Name: EVELIA NAILS Jr. Rep #: [id number] : 1940 83 From: Shirley PAYNE PCP: Dr. Laila Ramos MD Status:DIS LEONARDO Discharge Instructions Diet Discharge Diet: No restrictions Activity Discharge Activity: Return to Normal Activity and May Shower (on day 4 ) Weight Bearing Status: No weight bearing (left upper extremity .sling at all times. ) Additional Activity Instructions:: ok for elbow ROM, and pendulums 2-3 times per day left upper extremity Dressing / Incision Call your doctor if your incision/area has: Continuous Slow Oozing, Sudden Increased Bleeding, Increased Pain/ Swelling, Increased Redness, Foul Smelling Discharge and Swelling at the incision site Call your doctor if you observe: Fever of 101 or Higher, Inability to have a bowel movement, Shortness of breath, Dizziness, Chest pain, Calf discomfort and Uncontrolled pain Remove Dressing in: 1 week Cleanse incision/area with: Soap Water and Keep Dressing Clean Dry Follow Up Care When: With most orthopedics in 2 weeks as previously scheduled. Test Results: Test results from this visit will be discussed in further detail at your follow-up appointment, if applicable. Discharge Plan Admission Admit Date/Time: 10/12/24 10:44 Attending Provider: Gabo Francisco Primary Care Provider: Laila Ramos Consulting Providers: Chda Castrejon Discharge Orders/Prescriptions Prescriptions: New acetaminophen 500 mg Tablet 1,000 mg PO Q8 Qty: 180 0RF sennosides-docusate sodium [Stimulant Laxative Plus] 8.6-50 mg Tablet 2 tab PO BID Qty: 14 0RF oxycodone 5 mg Tablet 5 - 10 mg PO .q4-6 prn PRN (Reason: Pain Score 4-10) 7 Days Qty: 30 0RF meloxicam 7.5 mg Tablet 7.5 mg PO BID Qty: 60 0RF aspirin 81 mg Tablet,Delayed Release (Dr/Ec) 81 mg PO BID 14 Days Qty: 28 0RF Continued albuterol sulfate [Ventolin HFA] 90 mcg/actuation HFA aerosol inhaler 2 puff INHALATION Q4H PRN (Reason: shortness of breath or wheezing) finasteride 5 mg tablet 5 mg PO DAILY glucosamine-chondroitin 900 mg tablet 900 mg PO DAILY magnesium oxide 400 mg (241.3 mg magnesium) tablet 400 mg PO BID sucralfate 1 gram tablet 1 g PO BID primidone 250 mg tablet 250 mg PO BID diltiazem HCl 120 mg capsule,extended release 24 hr 120 mg PO QAM buspirone 10 mg tablet 10 mg PO BID propranolol 40 mg tablet 40 mg PO TID sertraline 100 MG tablet 200 mg PO DAILY lansoprazole 30 MG capsule 30 mg PO BID folic acid 1 MG tablet 1 mg PO BIDCM coenzyme Q10 100 MG capsule 100 mg PO DAILY jsegcelv-cro-BS-lycopen -lutein 1 EACH tablet 1 ea PO DAILY cyanocobalamin (vitamin B-12) 1,000 MCG/ML drops 1,000 mcg PO DAILY vitamins A,C,W-cdtb-ikqfhe 1 EACH tablet,delayed release (DR/EC) 2 ea PO DAILY montelukast 10 MG tablet 10 mg PO QHS donepezil 10 mg tablet 10 mg PO QHS tamsulosin 0.4 mg capsule 0.4 mg PO DAILY metoprolol tartrate 50 mg tablet 50 mg PO BID mesalamine 1.2 gram tablet,delayed release (DR/EC) 2.4 g PO BID lisinopril 5 mg tablet 5 mg PO DAILY Qty: 90 3RF Referrals / Follow Up: Laila Ramos MD [Primary Care Provider] - 10/16/24 1000 Shirley PAYNE CC: Dr. Chad Castrejon MD; Dr. Laila Ramos MD Signed Normal [facility] Bedside Glucoseon 10-12-2024 FINGERSTICK GLU 156 mg/dL High 74-106 [facility] Comment on above: Result Comment: DILEEP NAVARRO OF PATIENT CARE PER NURSING PROTOCOL Performed By: #### L 501.080 ####[facility] [address] [place], [place], [address] Decalcification bone/plaqueo n 10-12-2024 Decalcification bone/plaque Patient Age/Sex Location Account Attending Physician EVELIA NAILS Jr. 83/M MS3 [id number] Dr. Gabo Francisco DO Specimen: [id number] Received: 10/12/24 Status: CARLY Rose Num: [id number] Spec Type: HUMERUS Subm Dr: Dr. Gabo Francisco DO BANNER OPERATION: Total shoulder replacement PRE-OP DIAGNOSIS: Severe glenohumeral joint arthritis left shoulder TISSUE SUBMITTED: Bone and soft tissue left shoulder MICROSCOPIC DIAGNOSIS Bone and tissue left shoulder, total shoulder replacement/resection: Degenerative osteoarthritis (DJD). Intertrabecular multilineage hematopoiesis. FA.mr 10/18/2024 MICROSCOPIC DESCRIPTION Slides are reviewed. GROSS DESCRIPTION Received is one container labeled with the patient's name and designated bone and soft tissue. The specimen consists of a humeral head measuring 5.0 x 5.0 x 2.5 cm. Humeral head show minimal area of erosion. The articular surface shows areas of erosion, eburnation and osteophyte formation. No soft tissue is identified. Family Sociologist sections are submitted in two cassettes after decalcification. / SJ:mr 10/12/2024 TC: CPT: 39766, 58711 Patient Age/Sex Location Account Attending Physician EVELIA NAILS Jr. 83/M MS3 [id number] Dr. Gabo Francisco, DO Signed (signature on file) Dr. Ekaterina Henderson MD 10/18/24 1251 Normal [facility] Comment on above: Performed By: #### P DEC #### [facility] [place], [address] MR/POSTOP.ANEon 10-12-2024 MR/POSTOP.ANE [facility] Medical Records Department [address] [place] [address] Anesthesia Postop Eval I 10/12/24 1533 MR#: [id number] Acct: [id number] Name: EVELIA NAILS Jr. Rep #: [id number] : 1940 83 From: Robel De Leon CRNA PCP: Dr. Laila Ramos MD Status:ADM LEONARDO Y Race: C Location: [place] [address]-1 Anesthesia: Postop Eval I Current Vital Signs Temperature: 97 F Pulse Rate: 73 Blood Pressure: 115/62 Respiratory Rate: 16 Pulse Ox: 98 Oxygen Delivery Method: Room Air Assessment Airway patent: Yes Spontaneous unlabored respirations: Yes Mental status: Awake and Calm nausea: No Vomiting: No Anesthesia Complication: No Fluid Hydration Crystalloid volume administer (ml): 1,500 Total IV fluid infused: 1,500 Progress Note Anesthesia document: Postop Eval 1 completed: Yes 10/12/24 1534 Date Robel De Leon CRNA Cosigner Signature: Date CC: Signed Normal [facility] MR/[id number] 10-12-2024 MR/POSTOPAN2 [facility] Medical Records Department [address] [place] [address] Anesthesia Postop Eval II 10/12/24 1647 MR#: [id number] Acct: [id number] Name: EVELIA NAILS Jr. Rep #: [id number] : 1940 83 From: Wayne Christopher MD PCP: Dr. Laila Ramos MD Status:ADM LEONARDO Y Race: C Location: [place] [address]1 Anesthesia Postop Eval I Sum Postop Eval Completion status Anesthesia document: Postop Eval 1 completed: Yes Anesthesia Postop Eval I Summary Anesthesia Postop Eval I Summary: Anesthesia Postop Eval I: Assessment Summary Airway patent Yes 10/12/24 15:34 BATTERY [email or web address] Spontaneous unlabored Yes 10/12/24 15:34 BATTERY BUILDER.[email or web address] respirations Mental status Awake,Calm 10/12/24 15:34 BATTERY BUILDER.JBLOU nausea No 10/12/24 15:34 BATTERY BUILDER.JBLOU Vomiting No 10/12/24 15:34 BATTERY BUILDER.JBLOU Anesthesia Postop Eval I: Fluid Summary Crystalloid volume administer 1,500 10/12/24 15:34 BATTERY BUILDER.JBLOU (ml) Colloids volume administered ( ml) Blood Product volume administered (ml) Total IV fluid infused 1,500 10/12/24 15:34 BATTERY BUILDER.[email or web address] Anesthesia Postop Eval I: Summary Notes Anesthesia Complication No 10/12/24 15:34 BATTERY [email or web address].JBLOU Anesthesia Complication Comment: Post-operative progress note Anesthesia: Postop Eval II Evaluation Mental status: Awake Pain Level: 0 nausea: No Vomiting: No 10/12/24 1647 Date Wayne Jovel Signature: Date CC: Signed Normal [facility] Operative Reporton 4 Operative Report [facility] Medical Records Department [address] [place] [address] Operative Report 10/12/24 1056 MR#: [id number] Acct: [id number] Name: EVELIA NAILS Jr. Rep #: [id number] : 1940 83 From: Gabo Francisco DO PCP: Dr. Laila Ramos MD Status:[facility] Location: [place] [address] Operative Report (Standard) Operative Information Surgery/Procedure Performed: Left reverse total shoulder arthroplasty Surgeon: Gabo Francisco Date of Procedure: 10/12/24 Procedure Start Time: 09:31 Procedure Stop Time: 10:43 Pre-Operative Diagnosis: Left shoulder cuff tear arthropathy Post-Operative Diagnosis: Left shoulder cuff tear arthropathy Select all DRAINS/GRAFTS/IMPLANTS that apply: None (See dictated operative report below) Type of Anesthesia: General/Regional Estimated Blood Loss: 50 cc Fluids Replaced: Per anesthesia record Specimen collected: Yes Description of specimen(s) removed: Left humeral head Description of surgery: Preoperative diagnosis: Left shoulder rotator cuff arthropathy Postoperative diagnosis: Left shoulder rotator cuff arthropathy Procedure: Left Reverse total shoulder arthroplasty Surgeon: Gabo Francisco DO Colorman: Shirley Hopkins PA-C Anesthesia: General endotracheal Vp Packaging: Robel De Leon CRNA Complications: None apparent Drains: None Urinary output: None IV fluids: Per anesthesia record Specimens: None Surgical implants: Tornier Aequalis PerFORM+ reversed baseplate 29 mm diameter +6 mm lateralization, standard glenosphere cobalt chrome 42 mm diameter, Tornier perform inlay stem size #3, +0 mm retentive size number 3 42 mm diameter polyethylene insert, short central post and peripheral screws x4. Surgical indications: This is an 83-year-old male with persistent left shoulder pain. He did have worsening symptoms over the last several months. X-rays revealed rotator cuff arthropathy. He failed nonsurgical treatment. I recommended a reverse shoulder arthroplasty. We obtained a preoperative CT scan for planning. The risks, benefits, alternatives the procedure was reviewed with the patient and he agreed to proceed. Risks included but were not limited to bleeding, infection, instability, loss of life or limb, risk of anesthesia, neurovascular injury, persistent pain, stiffness, prolonged immobilization, need for additional surgery, loosening of orthopedic hardware. He expressed understanding and wished to proceed with surgery. Surgical details: Patient arrived to [facility] morning of the procedure and was greeted by the same day surgery staff. Prior to his procedure, I greeted the patient in the preoperative holding area I identified the patient by name, record number, and date of . Informed consent was confirmed. The operative extremity was marked. All questions were answered to patient satisfaction. An interscalene block was administered prior to procedure by anesthesia staff for postoperative and intraoperative analgesia. At time of his procedure, patient was brought to the operative suite and positioned supine on a standard table with a beachchair attachment. General anesthesia was induced after all bony prominences were well-padded. Endotracheal tube was placed. After adequate anesthesia and securing the tube, we prepared the patient to be positioned in the beachchair position. A well-padded drapery head former was applied. The nonoperative extremity was placed in a well arm orta. He was then brought into the beachchair position after we confirmed an appropriate blood pressure. We then spun the bed 45 degrees. The operative extremity was then prepared. The butterfly wing of the bed was removed and a well-padded torso strap was applied to secure the patient to the bed. The operative extremity was now free. We then prepped and draped the Left upper extremity in normal, sterile orthopedic fashion. We then performed a timeout with all parties in attendance in agreement with the side, site, and operation be performed. 2 g Ancef was administered prior to incision by anesthesia staff, as well as 1 g TXA IV. No concerns were voiced and we elected to proceed. I first marked a standard deltopectoral incision just lateral to the coracoid process in line with the long axis of the humerus. Skin was sharply incised with 10 blade scalpel. I then dissected bluntly through the subcutaneous layers and found the fat stripe between the deltoid and pectoralis major. The cephalic vein was then identified and protected. It was retracted laterally with the deltoid. I then bluntly dissected underneath the deltoid with a Griffiths elevator. Diana retractor was placed. The upper 1 cm of the pectoralis major was released. I then identified the long head of the biceps tendon in the intertubercular groove. This was tenodesed in situ with #2 FiberWire. I then ampu (more content not included)... Normal [facility] Shoulder min 2 Viewson 10-12 Shoulder min 2 Views [facility] Imaging Services [address] [place] [address] Shoulder min 2 Views MR#: [id number] Acct: [id number] Name: EVELIA NAILS Jr. Rep #: [id number] : 1940 M 83 From: Jorge Durbin MD PCP: Dr. Laila Ramos MD Status: [facility] Study: Shoulder min 2 Views Date of Exam: 10/12/24 Exam# [id number] Ordering Dr: [place] [id number] STUDY: X-RAY - LEFT SHOULDER REASON FOR EXAM: Male, 83 years old. Post op -- AP and Lateral X-Ray of operative shoulder in PACU. TECHNIQUE: 2 views of the left shoulder. COMPARISON: Left shoulder radiographs dated 06/14/2024. FINDINGS: There is a new left reverse shoulder arthroplasty in place. There is no periprosthetic fracture. There is surrounding soft tissue gas, compatible with recent surgery. There is unchanged acromioclavicular arthrosis. Intact acromion. The soft tissue structures are otherwise unremarkable. Normal visualized pulmonary apex. RAD/Shoulder min 2 Views IMPRESSION: New left reverse shoulder arthroplasty in place. No periprosthetic fracture. Electronically Signed: Jorge Durbin MD at 11:41 EST Reading Location ID and State: [address] [place] [address] , Service support , CC: Dr. Laila Ramos MD; Dr. Gabo Francisco DO Stage Builder: Signed Normal [facility] MRSA/SAID NASAL SCREENon MRSA+SAID SCRN Reason for Exam: PRE OP MRSA MRSA Negative S. AUREUS S. aureus PositiveA Normal [facility] Comment on above: Performed By: #### M 100.651, L501.1800, L500.2500, L100.0100 ####[facility] [address] [place], [address] Albumin, Serumon 09-28-2024 Albumin [Mass/Vol] 3.4 g/dL Normal 3.2-5.0 [facility] Comment on above: Performed By: #### M 100.651, L501.1800, L500.2500, L100.0100 ####[facility] [address] [place], [address] Basic Metabolic Profile (BMP )on 09-28-2024 BUN/CRE 15.9 RATIO Normal 10-20 [facility] Comment on above: Performed By: #### M 100.651, L501.1800, L500.2500, L100.0100 ####[facility] [address] [place], [address] CA,Total 9.1 mg/dL Normal 8.5-10.1 [facility] Comment on above: Performed By: #### M 100.651, L501.1800, L500.2500, L100.0100 ####[facility] [address] [place], [address] Chloride [Moles/Vol] 107 mmol/L Normal 98-107 [facility] Comment on above: Performed By: #### M 100.651, L501.1800, L500.2500, L100.0100 ####[facility] [address] [place], [address] CO2 [Moles/Vol] 26.0 mmol/L Normal 21.0-32.0 [facility] Comment on above: Performed By: #### M 100.651, L501.1800, L500.2500, L100.0100 ####[facility] [address] [place], [address] Creatinine [Mass/Vol] 1.26 mg/dL Normal 0.70-1.30 [facility] Comment on above: Result Comment: The validity of the calculated GFR GFRAA in patients over 70 years has not been determined. Clinical correlation is essential. Performed By: #### M 100.651, L501.1800, L500.2500, L100.0100 ####[facility] [address] [place], [address] EST GFR - AA 70 mL/min Normal >60 [facility] Comment on above: Result Comment: Afri can Macedonian GFR Calc Performed By: #### M 100.651, L501.1800, L500.2500, L100.0100 ####[facility] [address] [place], [address] GAP 4 Low 5-15 [facility] Comment on above: Performed By: #### M 100.651, L501.1800, L500.2500, L100.0100 ####[facility] [address] [place], [address] GFR/1.73 sq M.predicted among non-blacks MDRD (S/P/Bld) [Vol rate/Area] 58 mL/min/{1.73_m2} Low >60 [facility] Comment on above: Result Comment: Non- GFR Calc Performed By: #### M 100.651, L501.1800, L500.2500, L100.0100 ####[facility] [address] [place], [address] Glucose [Mass/Vol] 128 mg/dL High 74-106 [facility] Comment on above: Result Comment: Fast ing Glucose result greater than or equal to 126 mg/dL suggests DIABETES MELLITUS per A.D.A. criteria. Performed By: #### M 100.651, L501.1800, L500.2500, L100.0100 ####[facility] [address] [place], [address] Potassium [Moles/Vol] 4.5 mmol/L Normal 3.5-5.1 [facility] Comment on above: Performed By: #### M 100.651, L501.1800, L500.2500, L100.0100 ####[facility] [address] [place], [address] Sodium [Moles/Vol] 137 mmol/L Normal 136-145 [facility] Comment on above: Performed By: #### M 100.651, L501.1800, L500.2500, L100.0100 ####[facility] [address] [place], [address] Urea nitrogen [Mass/Vol] 20 mg/dL High 7-18 [facility] Comment on above: Performed By: #### M 100.651, L501.1800, L500.2500, L100.0100 ####[facility] [address] [place], [address] CBC W/Diff, Automatedon 10-3 -2023 Absolute Lymph 1.61 X10 3/uL Normal 0.83-4.51 [facility] Comment on above: Performed By: #### M 100.651, L501.1800, L500.2500, L100.0100 ####[facility] [address] [place], [address] Absolute Neut 6.4 X10 3/uL Normal 2.0-7.7 [facility] Comment on above: Performed By: #### M 100.651, L501.1800, L500.2500, L100.0100 ####[facility] [address] [place], [address] Basophils/100 WBC (Bld) 0.6 % Normal 0-1 [facility] Comment on above: Performed By: #### M 100.651, L501.1800, L500.2500, L100.0100 ####[facility] [address] [place], [address] Eosinophils/100 WBC (Bld) 1.3 % Normal 0-5 [facility] Comment on above: Performed By: #### M 100.651, L501.1800, L500.2500, L100.0100 ####[facility] [address] [place], [address] Erythrocyte distribution width (RBC) [Ratio] 15.4 % High 11.6-14.6 [facility] Comment on above: Performed By: #### M 100.651, L501.1800, L500.2500, L100.0100 ####[facility] [address] [place], [address] Hematocrit (Bld) [Volume fraction] 39.8 % Low 40-54 [facility] Comment on above: Performed By: #### M 100.651, L501.1800, L500.2500, L100.0100 ####[facility] [address] [place], [address] Hemoglobin (Bld) [Mass/Vol] 12.2 g/dL Low 13.0-16.5 [facility] Comment on above: Performed By: #### M 100.651, L501.1800, L500.2500, L100.0100 ####[facility] [address] [place], [address] IG% 0.800 Normal 0.0-0.9 [facility] Comment on above: Result Comment: IG% - Immature Granulocytes (promyelocytes, myelocytes and metamyelocytes) > 1% indicates that a LEFT SHIFT is Present. Performed By: #### M 100.651, L501.1800, L500.2500, L100.0100 ####[facility] [address] [place], [address] Lymphocytes/100 WBC (Bld) 18.4 % Low 19-41 [facility] Comment on above: Performed By: #### M 100.651, L501.1800, L500.2500, L100.0100 ####[facility] [address] [place], [address] MCH (RBC) [Entitic mass] 26.4 pg Low 27.0-32.0 [facility] Comment on above: Performed By: #### M 100.651, L501.1800, L500.2500, L100.0100 ####[facility] [address] [place], [address] MCHC (RBC) [Mass/Vol] 30.7 g/dL Low 32-36 [facility] Comment on above: Performed By: #### M 100.651, L501.1800, L500.2500, L100.0100 ####[facility] [address] [place], [address] MCV (RBC) [Entitic vol] 86.1 fL Normal 80-94 [facility] Comment on above: Performed By: #### M 100.651, L501.1800, L500.2500, L100.0100 ####[facility] [address] [place], [address] Monocytes/100 WBC (Bld) 5.4 % Normal 0-10 [facility] Comment on above: Performed By: #### M 100.651, L501.1800, L500.2500, L100.0100 ####[facility] [address] [place], [address] Neutrophils/100 WBC (Bld) 73.5 % High 47-70 [facility] Comment on above: Performed By: #### M 100.651, L501.1800, L500.2500, L100.0100 ####[facility] [address] [place], [address] Nucleated RBC (Bld) [#/Vol] 0 10*3/uL Normal 0-5 [facility] Comment on above: Performed By: #### M 100.651, L501.1800, L500.2500, L100.0100 ####[facility] [address] [place], [address] Platelet mean volume (Bld) [Entitic vol] 10.1 fL Normal 6.2-12.0 [facility] Comment on above: Performed By: #### M 100.651, L501.1800, L500.2500, L100.0100 ####[facility] [address] [place], [address] Platelets (Bld) [#/Vol] 212 10*3/uL Normal 150-450 [facility] Comment on above: Performed By: #### M 100.651, L501.1800, L500.2500, L100.0100 ####[facility] [address] [place], [address] RBC (Bld) [#/Vol] 4.62 10*6/uL Normal 4.6-6.2 [facility] Comment on above: Performed By: #### M 100.651, L501.1800, L500.2500, L100.0100 ####[facility] [address] [place], [address] RDW SD 47.8 fl High 35.1-43.9 [facility] Comment on above: Performed By: #### M 100.651, L501.1800, L500.2500, L100.0100 ####[facility] [address] [place], [address] WBC (Bld) [#/Vol] 8.7 10*3/uL Normal 4.4-11.0 [facility] Comment on above: Performed By: #### M 100.651, L501.1800, L500.2500, L100.0100 ####[facility] [address] [place], [address] Magnesiumon 09-28-2024 Magnesium [Mass/Vol] 2.4 mg/dL Normal 1.6-2.6 [facility] Comment on above: Performed By: #### L 501.5200 ####[facility] [address] [place], [address] Basic Metabolic Profile (BMP )on 09-27-2024 BUN Normal 7-18 [facility] Comment on above: Result Comment: PT L EFT Performed By: #### L 100.0100, L500.2500 ####[facility] [address] [place], [address] BUN/CRE Normal 10-20 [facility] Comment on above: Result Comment: PT L EFT Performed By: #### L 100.0100, L500.2500 ####[facility] [address] [place], [address] CA,Total Normal 8.5-10.1 [facility] Comment on above: Result Comment: PT L EFT Performed By: #### L 100.0100, L500.2500 ####[facility] [address] [place], [address] CL Normal 98-107 [facility] Comment on above: Result Comment: PT L EFT Performed By: #### L 100.0100, L500.2500 ####[facility] [address] [place], [address] CO2 Normal 21.0-32.0 [facility] Comment on above: Result Comment: PT L EFT Performed By: #### L 100.0100, L500.2500 ####[facility] [address] [place], [address] CREAT,SERUM Normal 0.70-1.30 [facility] Comment on above: Result Comment: PT L EFT Performed By: #### L 100.0100, L500.2500 ####[facility] [address] [place], [address] EST GFR Normal >60 [facility] Comment on above: Result Comment: PT L EFT Performed By: #### L 100.0100, L500.2500 ####[facility] [address] [place], [address] EST GFR - AA Normal >60 [facility] Comment on above: Result Comment: PT L EFT Performed By: #### L 100.0100, L500.2500 ####[facility] [address] [place], [address] GAP Normal 5-15 [facility] Comment on above: Result Comment: PT L EFT Performed By: #### L 100.0100, L500.2500 ####[facility] [address] [place], [address] GLU Normal 74-106 [facility] Comment on above: Result Comment: PT L EFT Performed By: #### L 100.0100, L500.2500 ####[facility] [address] [place], [address] Potassium Normal 3.5-5.1 [facility] Comment on above: Result Comment: PT L EFT Performed By: #### L 100.0100, L500.2500 ####[facility] [address] [place], [address] Basic Metabolic Profile (BMP) Normal 136-145 [facility] Comment on above: Result Comment: PT L EFT Performed By: #### L 100.0100, L500.2500 ####[facility] [address] [place], [address] CBC W/Diff, Automatedon 10-3 0-2023 Absolute Neut Normal 2.0-7.7 [facility] Comment on above: Result Comment: PT L EFT Performed By: #### L 100.0100, L500.2500 ####[facility] [address] [place], [address] HCT Normal 40-54 [facility] Comment on above: Result Comment: PT L EFT Performed By: #### L 100.0100, L500.2500 ####[facility] [address] [place], [address] HGB Normal 13.0-16.5 [facility] Comment on above: Result Comment: PT L EFT Performed By: #### L 100.0100, L500.2500 ####[facility] [address] [place], [address] MCH Normal 27.0-32.0 [facility] Comment on above: Result Comment: PT L EFT Performed By: #### L 100.0100, L500.2500 ####[facility] [address] [place], [address] MCHC Normal 32-36 [facility] Comment on above: Result Comment: PT L EFT Performed By: #### L 100.0100, L500.2500 ####[facility] [address] [place], [address] MCV Normal 80-94 [facility] Comment on above: Result Comment: PT L EFT Performed By: #### L 100.0100, L500.2500 ####[facility] [address] [place], [address] NEUT% Normal 47-70 [facility] Comment on above: Result Comment: PT L EFT Performed By: #### L 100.0100, L500.2500 ####[facility] [address] [place], [address] PLT Normal 150-450 [facility] Comment on above: Result Comment: PT L EFT Performed By: #### L 100.0100, L500.2500 ####[facility] [address] [place], [address] RBC Normal 4.6-6.2 [facility] Comment on above: Result Comment: PT L EFT Performed By: #### L 100.0100, L500.2500 ####[facility] [address] [place], [address] RDW CV Normal 11.6-14.6 [facility] Comment on above: Result Comment: PT L EFT Performed By: #### L 100.0100, L500.2500 ####[facility] [address] [place], [address] RDW SD Normal 35.1-43.9 [facility] Comment on above: Result Comment: PT L EFT Performed By: #### L 100.0100, L500.2500 ####[facility] [address] [place], [address] WBC Normal 4.4-11.0 [facility] Comment on above: Result Comment: PT L EFT Performed By: #### L 100.0100, L500.2500 ####[facility] [address] [place], [address] Extremity Upper without Cont raon 09-18-2024 Extremity Upper without Contra [facility] Imaging Services [address] [place] [address] Extremity Upper without Contra MR#: [id number] Acct: [id number] Name: EVELIA NAILS Jr. Rep #: [id number] : 1940 M 83 From: Jorge Durbin MD PCP: Dr. Laila Ramos MD Status: REG CLI Study: Extremity Upper without Contra Date of Exam: Exam# [id number] Ordering Dr: [place] [id number] STUDY: CT LEFT SHOULDER REASON FOR EXAM: Male, 83 years old. Anterior dislocation of left humerus BRUNO RADIATION DOSAGE (If Supplied By Facility): CTDIvol = ( 24.25 ) mGy, DLP = ( 587.60 ) mGycm TECHNIQUE: The patient was scanned in a multi detector CT scanner. High resolution transaxial imaging was performed without the administration of intravenous contrast material. Sagittal and coronal images were reconstructed. Individualized dose optimization techniques were used for this CT. COMPARISON: None. FINDINGS: There is calcification/ossificat ion of the anterior-inferior glenoid labrum (axial series 2 images 67-72). Normal glenohumeral joint with no subluxation/dislocation . Intact glenoid rim, neck and visualized scapula. Normal humeral head, neck and tuberosities. There is calcification along the course of the infraspinatus tendon, which could be related to calcific tendinitis. Normal coracoid process. Normal visualized lateral clavicle. There is minimal acromioclavicular arthrosis. There is a Type II morphology (curved), with a neutral orientation. Normal visualized muscles and soft tissue structures. CT/Extremity Upper without Contra IMPRESSION: Calcification/ossificat ion of the anterior-inferior glenoid labrum. No glenohumeral subluxation/dislocation . Calcification along the course of the infraspinatus tendon, which could be related to calcific tendinitis. Minimal acromioclavicular arthrosis. Electronically Signed: Jorge Durbin MD at 13:05 EDT , CC: Dr. Laila Ramos MD; Dr. Gabo Francisco DO Stage Builder: Signed Normal [facility] Basophil percentageOrdered B y: Tyler Hairston on 03-06-2024 Creatinine [Mass/Vol] 1.2 mg/dL 0.70-1.30 [facility] No Panel InformationOrdered By: Tyler Hairston on 03-06-2024 Bedside Estimated GFR (eGFR) > 60.0000 mL/min >60 [facility] No Panel Informationon 11-17 ERV BOX (L) 0.87 L [facility] [id number]% PRE (L/S) 1.46 L/S [facility] FEV1 PRE (L) 2.76 L [facility] FEV1/FVC PRE (%) 61 % [facility] FRC Box (L) 4.06 L [facility] FVC PRE (L) 4.57 L [facility] IC BOX (L) 3.42 L [facility] PEF PRE (L/S) 5.51 L/S [facility] RV Box (L) 3.24 L [facility] RV/TLC Box (%) 43 % [facility] TLC Box (L) 7.45 L [facility] VC (L) BOX 4.51 L [facility] ECG COMPLETEon 06-25-2022 Atrial Rate 63 BPM [facility] Calculated P [place] [address] [facility] Calculated R [place] -56 degrees [facility] Calculated T [place] [address] [facility] P-R Interval 176 ms [facility] QRS Duration 84 ms [facility] QT Interval 414 ms [facility] QTC Calculation (Bazett) 423 ms [facility] Ventricular Rate [address] [facility] 2019 CORONAVIRUSon 2 SARS-CoV-2 (COVID-19) RNA SRI+probe Ql (Resp) SARS-CoV-2 (Agent of COVID-19) Not Detected by RT-PCR or equivalent method. Not Detected [facility] Comprehensive metabolic 2000 panelon 06-23-2022 Albumin [Mass/Vol] 4.0 g/dL 3.9 - 4.9 g/dL [facility] ALP [Catalytic activity/Vol] 86 U/L 38 - 113 U/L [facility] ALT [Catalytic activity/Vol] 16 U/L 10 - 54 U/L [facility] Anion gap [Moles/Vol] 11 mmol/L 9 - 18 mmol/L [facility] AST [Catalytic activity/Vol] 20 U/L 14 - 40 U/L [facility] Bilirubin [Mass/Vol] 0.5 mg/dL 0.2 - 1 .3 mg/dL [facility] Calcium [Mass/Vol] 9.3 mg/dL 8.5 - 10. 2 mg/dL [facility] Chloride [Moles/Vol] 105 mmol/L 97 - 10 5 mmol/L [facility] CO2 [Moles/Vol] 24 mmol/L 22 - 30 mmol/L [facility] Creatinine [Mass/Vol] 1.29 mg/dL High 0.73 - 1.22 mg/dL [facility] Estimated Glomerular Filtration Rate 56 mL/min/1.73m Low >=60 mL/min/1.73m [facility] Glucose [Mass/Vol] 103 mg/dL High 74 - 99 mg/dL [facility] Potassium [Moles/Vol] 4.4 mmol/L 3.7 - 5.1 mmol/L [facility] Protein [Mass/Vol] 7.2 g/dL 6.3 - 8.0 g/dL [facility] Sodium [Moles/Vol] 140 mmol/L 136 - 144 mmol/L [facility] Urea nitrogen [Mass/Vol] 21 mg/dL 9 - 24 mg/dL [facility] T3 FREE [facility] 06-23-2022 Free T3 [Mass/Vol] 1.8 pg/mL Low 2.3 - 4.1 pg/mL [facility] T4 FREE/FREE THYROXon 2021 Free T4 [Mass/Vol] 1.2 ng/dL 0.9 - 1.7 ng/dL [facility] TSH [facility] 06-23-2022 TSH Qn 2.750 m[IU]/L 0.270 - 4.200 mIU/L [facility] CBC panel Auto (Bld)on 06-22 Erythrocyte distribution width (RBC) [Ratio] 16.2 % High 11.5 - 15.0 % [facility] Hematocrit (Bld) [Volume fraction] 41.9 % 39.0 - 51.0 % [facility] Hemoglobin (Bld) [Mass/Vol] 13.3 g/dL 13.0 - 17.0 g/dL [facility] MCH (RBC) [Entitic mass] 28.4 pg 26.0 - 34.0 pg [facility] MCHC (RBC) [Mass/Vol] 31.7 g/dL 30.5 - 36.0 g/dL [facility] MCV (RBC) [Entitic vol] 89.5 fL 80.0 - 100.0 fL [facility] Nucleated RBC (Bld) [#/Vol] <0.01 k/uL [facility] Platelet mean volume (Bld) [Entitic vol] 11.5 fL 9.0 - 12.7 fL [facility] Platelets (Bld) [#/Vol] 136 10*3/uL Low 150 - 400 k/uL [facility] RBC (Bld) [#/Vol] 4.68 10*6/uL 4.20 - 6.0 0 m/uL [facility] WBC (Bld) [#/Vol] 7.42 10*3/uL 3.70 - 11. 00 k/uL [facility] XR CHEST 2V FRONTAL/LATon [facility] XR Chest PA and Lateralon IMPRESSION: Left basilar atelectasis. Stage Builder: PSCB Transcribe Date/Time: Jun 22 2022 2:42P Dictated by : SHARMAINE MORALES MD This examination was interpreted and the report reviewed and electronically signed by: SHARMAINE MORALES MD on Jun 22 2022 2:43PM EST ZZZ_DO_NOT_U SE_DIVISION OF RADIOLOGY * * *Final Report* * * DATE OF EXAM: Jun 22 2022 2:29PM WOX [id number] - XR CHEST 2V FRONTAL/LAT / PROCEDURE REASON: multiple diagnoses * * * * Physician Interpretation * * * * EXAMINATION: CHEST RADIOGRAPH (2 VIEW FRONTAL & LATERAL) CLINICAL HISTORY: Preop examination Viral syndrome MQ: XC2_6 EXAM DATE/TIME: 06/22/2022 2:29 PM COMPARISON: Chest x-ray on 07/17/2021 RESULT: Lines, tubes, and devices: None. Lungs and pleura: Left basilar atelectasis is noted. Otherwise the lungs are clear without consolidations. No mass lesion identified. No pleural effusions or pneumothorax. Skin folds projecting over the bilateral lower lungs. Cardiomediastinal silhouette: Stable cardiac silhouette and mediastinal contour. Bones and soft tissues: There are degenerative changes in the spine. [facility]ZZ_DO_NOT_U SE_DIVISION OF RADIOLOGY Provider, [facility] - 06/22/2022 * * *Final Report* * * DATE OF EXAM: Jun 22 2022 2:29PM WOX [id number] - XR CHEST 2V FRONTAL/LAT / PROCEDURE REASON: multiple diagnoses * * * * Physician Interpretation * * * * EXAMINATION: CHEST RADIOGRAPH (2 VIEW FRONTAL & LATERAL) CLINICAL HISTORY: Preop examination Viral syndrome MQ: XC2_6 EXAM DATE/TIME: 06/22/2022 2:29 PM COMPARISON: Chest x-ray on 07/17/2021 RESULT: Lines, tubes, and devices: None. Lungs and pleura: Left basilar atelectasis is noted. Otherwise the lungs are clear without consolidations. No mass lesion identified. No pleural effusions or pneumothorax. Skin folds projecting over the bilateral lower lungs. Cardiomediastinal silhouette: Stable cardiac silhouette and mediastinal contour. Bones and soft tissues: There are degenerative changes in the spine. IMPRESSION IMPRESSION: Left basilar atelectasis. Stage Builder: [facility] Transcribe Date/Time: Jun 22 2022 2:42P Dictated by : SHARMAINE MORALES MD This examination was interpreted and the report reviewed and electronically signed by: SHARMAINE MORALES MD on Jun 22 2022 2:43PM [facility] Radiology Study observation (narrative) [facility] XR Chest PA and LateralOrder ed By: [facility] Provider on 06-22-2022 [facility] HGB A1Con 02-05-2022 Average glucose Estimated from glycated hemoglobin (Bld) [Mass/Vol] 105 mg/dL [facility] HbA1c (Bld) [Mass fraction] 5.3 % 4.3 - 5.6 % [facility] XR Chest PA and Lateralon IMPRESSION: No acute radiographic abnormality. Stage Builder: [facility] Transcribe Date/Time: Jul 17 2021 11:47A Dictated by : INDIGO BELLO MD This examination was interpreted and the report reviewed and electronically signed by: INDIGO BELLO MD on Jul 17 2021 11:47AM [facility] DIVISION OF RADIOLOGY * * *Final Report* * * DATE OF EXAM: Jul 17 2021 11:41AM WOX [id number] - XR CHEST 2V FRONTAL/LAT / PROCEDURE REASON: Cough * * * * Physician Interpretation * * * * EXAMINATION: CHEST RADIOGRAPH (2 VIEW FRONTAL & LATERAL) CLINICAL HISTORY: Cough MQ: XC2_6 EXAM DATE/TIME: 07/17/2021 11:41 AM COMPARISON: Chest x-ray 11/04/2016 RESULT: Lines, tubes, and devices: None. Lungs and pleura: No consolidation. No lung mass. No pleural effusion. No pneumothorax. Cardiomediastinal silhouette: Normal cardiomediastinal silhouette. Bones and soft tissues: Unremarkable. DIVISION OF RADIOLOGY Provider, Koby Pérez - 07/17/2021 * * *Final Report* * * DATE OF EXAM: Jul 17 2021 11:41AM WOX [id number] - XR CHEST 2V FRONTAL/LAT / PROCEDURE REASON: Cough * * * * Physician Interpretation * * * * EXAMINATION: CHEST RADIOGRAPH (2 VIEW FRONTAL & LATERAL) CLINICAL HISTORY: Cough MQ: XC2_6 EXAM DATE/TIME: 07/17/2021 11:41 AM COMPARISON: Chest x-ray 11/04/2016 RESULT: Lines, tubes, and devices: None. Lungs and pleura: No consolidation. No lung mass. No pleural effusion. No pneumothorax. Cardiomediastinal silhouette: Normal cardiomediastinal silhouette. Bones and soft tissues: Unremarkable. IMPRESSION IMPRESSION: No acute radiographic abnormality. Stage Builder: [facility] Transcribe Date/Time: Jul 17 2021 11:47A Dictated by : INDIGO BELLO MD This examination was interpreted and the report reviewed and electronically signed by: INDIGO BELLO MD on Jul 17 2021 11:47AM EST [facility] Radiology Study observation (narrative) [facility] XR Chest PA and LateralOrder ed By: [facility] Provider on 07-17-2021 [facility] Vital Signs Date Time Vital Sign Value Performing Clinician Eula huston 04-10-2025 15:09-0400 Body mass index (BMI) [Ratio] 27.93 kg/m2 Laila Ramos MD Work Phone: [facility] 04-10-2025 15:09-0400 Body weight 92.5 kg Laila Ramos MD Work Phone: [facility] 04-10-2025 15:09-0400 Diastolic blood pressure 58 mm[Hg] Laila Ramos MD Work Phone: [facility] 04-10-2025 15:09-0400 Heart rate 64 /min Laila Ramos MD Work Phone: [facility] 04-10-2025 15:09-0400 Respiratory rate 16 /min Laila Ramos MD Work Phone: [facility] 04-10-2025 15:09-0400 Systolic blood pressure 116 mm[Hg] Laila Ramos MD Work Phone: [facility] 11-20-2024 10:42-0500 Body height 182 cm Laila Ramos MD Work Phone: [facility] 11-20-2024 10:42-0500 Body mass index (BMI) [Ratio] 28.08 kg/m2 Laila Ramos MD Work Phone: [facility] 11-20-2024 10:42-0500 Body weight 93 kg Laila Ramos MD Work Phone: [facility] 11-20-2024 10:42-0500 Diastolic blood pressure 70 mm[Hg] Laila Ramos MD Work Phone: [facility] 11-20-2024 10:42-0500 Heart rate 69 /min Laila Ramos MD Work Phone: [facility] 11-20-2024 10:42-0500 Respiratory rate 16 /min Laila Ramos MD Work Phone: [facility] 11-20-2024 10:42-0500 SaO2% (BldA) [Mass fraction] 96 % Laila Ramos MD Work Phone: [facility] 11-20-2024 10:42-0500 Systolic blood pressure 111 mm[Hg] Laila Ramos MD Work Phone: [facility] 11-02-2024 09:14-0500 Body mass index (BMI) [Ratio] 28.46 kg/m2 Em Romero FRUIT HARVESTER.MEDICAL RECORDS SUPERVISOR Work Phone: [facility] 11-02-2024 09:14-0500 Body weight 93.2 kg Em Romero FRUIT HARVESTER.MEDICAL RECORDS SUPERVISOR Work Phone: [facility] 11-02-2024 09:14-0500 Diastolic blood pressure 61 mm[Hg] Em Nick FRUIT HARVESTER.MEDICAL RECORDS SUPERVISOR Work Phone: [facility] 11-02-2024 09:14-0500 Heart rate 66 /min Em Bauers FRUIT HARVESTER.MEDICAL RECORDS SUPERVISOR Work Phone: [facility] 11-02-2024 09:14-0500 Respiratory rate 16 /min Em Romero FRUIT HARVESTER.MEDICAL RECORDS SUPERVISOR Work Phone: [facility] 11-02-2024 09:14-0500 Systolic blood pressure 100 mm[Hg] Em Romero FRUIT HARVESTER.MEDICAL RECORDS SUPERVISOR Work Phone: [facility] 10-28-2024 10:35-0500 Heart rate 88 /min QUINTIN QUESADAATZLE DO [facility] 10-28-2024 10:09-0500 Blood Pressure Cuff Size QUINTIN QUESADAATZLE DO [facility] 10-28-2024 10:09-0500 Blood Pressure Location QUINTIN SANGITAATZLE DO [facility] 10-28-2024 10:09-0500 Blood Pressure Method QUINTIN QUESADAATZLE DO [facility] 10-28-2024 10:09-0500 Body temperature 98.42 [degF] QUINTIN QUESADAATZLE DO [facility] 10-28-2024 10:09-0500 Diastolic Blood Pressure Non-Invasive 62 mm[Hg] QUINTIN QUESADAATZLE DO [employer] 10-28-2024 10:09-0500 Heart rate 88 /min QUINTIN SANGITAATZLE DO [employer] 10-28-2024 10:09-0500 Reason For Taking VItal Signs QUINTIN SANGITAATZLE DO [facility] 10-28-2024 10:09-0500 Systolic Blood Pressure Non-Invasive 144 mm[Hg] QUINTIN QUESADAATZLE DO [employer] 10-28-2024 00:37-0500 Blood Pressure Cuff Size QUINTIN QUESADAATZLE DO [facility] 10-28-2024 00:37-0500 Blood Pressure Location QUINTIN QUESADAATZLE DO [facility] 10-28-2024 00:37-0500 Blood Pressure Method QUINTIN QUESADAATZLE DO [facility] [place] 10-28-2024 00:37-0500 Body temperature 97.7 [degF] QUINTIN QUESADAATZLE DO [facility] [place] 10-28-2024 00:37-0500 Diastolic Blood Pressure Non-Invasive 80 mm[Hg] QUINTIN QUESADAATZLE DO [facility] 10-28-2024 00:37-0500 Heart rate 61 /min QUINTIN QUESADAATZLE DO [employer] 10-28-2024 00:37-0500 Reason For Taking VItal Signs QUINTIN QUESADAATZLE DO [facility] [place] 10-28-2024 00:37-0500 Respiratory rate 18 /min QUINTIN QUESADAATZLE DO [facility] [place] 10-28-2024 00:37-0500 Systolic Blood Pressure Non-Invasive 124 mm[Hg] QUINTIN QUESADAATZLE DO [facility] [place] 10-27-2024 17:17-0500 Heart rate 66 /min QUINTIN QUESADAATZLE DO [facility] [place] 10-27-2024 17:15-0500 Blood Pressure Cuff Size QUINTIN QUESADAATZLE DO [facility] [place] 10-27-2024 17:15-0500 Blood Pressure Location QUINTIN QUESADAATZLE DO [facility] [place] 10-27-2024 17:15-0500 Blood Pressure Method QUINTIN QUESADAATZLE DO [facility] [place] 10-27-2024 17:15-0500 Diastolic Blood Pressure Non-Invasive 68 mm[Hg] QUINTIN QUESADAATZLE DO [facility] [place] 10-27-2024 17:15-0500 Heart rate 66 /min QUINTIN QUESADAATZLE DO [facility] [place] 10-27-2024 17:15-0500 Reason For Taking VItal Signs QUINTIN QUESADAATZNEFTALY DO [facility] [place] 10-27-2024 17:15-0500 Respiratory rate 18 /min QUINTIN QUESADAATZLE DO [facility] [place] 10-27-2024 17:15-0500 Systolic Blood Pressure Non-Invasive 131 mm[Hg] QUINTIN QUESADAATZLE DO [facility] [place] 10-27-2024 08:06-0500 Body temperature 97.7 [degF] QUINTIN QUESADAATZLE DO [facility] [place] 10-27-2024 08:06-0500 Respiratory rate 16 /min QUINTIN QUESADAATZLE DO [facility] [place] 10-27-2024 02:02-0500 Body temperature 97.34 [degF] QUINTIN SANGITAATZLE DO [facility] [place] 10-27-2024 02:02-0500 Heart rate 62 /min QUINTIN SANGITAATZLE DO [facility] 10-26-2024 20:55-0500 Body temperature 97.88 [degF] QUINTIN QUESADAATZLE DO [facility] 10-26-2024 08:07-0500 Body temperature 97.7 [degF] QUINTIN SANGITAATZLE DO [facility] 10-17-2024 18:07-0500 Body weight 92.8 kg QUINTIN SCHEATZLE DO [facility] 10-17-2024 17:21-0500 Body height 180 cm QUINTIN SCHEATZLE DO [employer] 10-17-2024 17:21-0500 Body weight 94 kg QUINTIN SCHEATZLE DO [facility] 10-17-2024 17:21-0500 Body weight 29.01 kg/m2 QUINTIN SCHEATZLE DO [facility] [place] 10-16-2024 16:16-0500 Body height 180 cm QUINTIN SCHEATZLE DO [facility] [place] 10-16-2024 16:16-0500 Body weight 94 kg QUINTIN SCHEATZLE DO [facility] 10-16-2024 16:16-0500 Body weight 29.01 kg/m2 QUINTIN SCHEATZLE DO [facility] 10-04-2024 13:48-0500 Body mass index (BMI) [Ratio] 29.13 kg/m2 Lili Hawk MD Work Phone: [facility] 10-04-2024 13:48-0500 Body weight 95.4 kg Lili Hawk MD Work Phone: [facility] 10-04-2024 13:48-0500 SaO2% (BldA) [Mass fraction] 97 % Lili Hawk MD Work Phone: [facility] 09-25-2024 14:17-0400 Body height 181 cm Chloé Penar FRUIT HARVESTER.CHIPPING MACHINE OPERATOR Work Phone: [facility] 09-25-2024 14:17-0400 Body mass index (BMI) [Ratio] 29.16 kg/m2 Chloé Jami FRUIT HARVESTER.CHIPPING MACHINE OPERATOR Work Phone: [facility] 09-25-2024 14:17-0400 Body weight 95.5 kg Chloé Jami FRUIT HARVESTER.CHIPPING MACHINE OPERATOR Work Phone: [facility] 09-25-2024 14:17-0400 Diastolic blood pressure 68 mm[Hg] Chloé Jami FRUIT HARVESTER.CHIPPING MACHINE OPERATOR Work Phone: [facility] 09-25-2024 14:17-0400 Heart rate 69 /min Chloé Jami FRUIT HARVESTER.CHIPPING MACHINE OPERATOR Work Phone: [facility] 09-25-2024 14:17-0400 SaO2% (BldA) [Mass fraction] 97 % Chloé Jami FRUIT HARVESTER.CHIPPING MACHINE OPERATOR Work Phone: [facility] 09-25-2024 14:17-0400 Systolic blood pressure 118 mm[Hg] Chloé Jami FRUIT HARVESTER.CHIPPING MACHINE OPERATOR Work Phone: [facility] 07-03-2024 16:39-0400 Body mass index (BMI) [Ratio] 28.89 kg/m2 Laila Ramos MD Work Phone: [facility] 07-03-2024 16:39-0400 Body temperature 98.29 [degF] Laila Ramos MD Work Phone: [facility] 07-03-2024 16:39-0400 Body weight 96.62 kg Laila Ramos MD Work Phone: [facility] 07-03-2024 16:39-0400 Diastolic blood pressure 62 mm[Hg] Laila Ramos MD Work Phone: [facility] 07-03-2024 16:39-0400 Heart rate 70 /min Laila Ramos MD Work Phone: [facility] 07-03-2024 16:39-0400 Respiratory rate 16 /min Laila Ramos MD Work Phone: [facility] 07-03-2024 16:39-0400 SaO2% (BldA) [Mass fraction] 97 % Laila Ramos MD Work Phone: [facility] 07-03-2024 16:39-0400 Systolic blood pressure 120 mm[Hg] Laila Ramos MD Work Phone: [facility] 06-15-2024 14:07-0400 Body mass index (BMI) [Ratio] 28.89 kg/m2 Laila Ramos MD Work Phone: [facility] 06-15-2024 14:07-0400 Body weight 96.62 kg Laila Ramos MD Work Phone: [facility] 06-15-2024 14:07-0400 Diastolic blood pressure 72 mm[Hg] Laila Ramos MD Work Phone: [facility] 06-15-2024 14:07-0400 Heart rate 76 /min Laila Ramos MD Work Phone: [facility] 06-15-2024 14:07-0400 Respiratory rate 16 /min Laila Ramos MD Work Phone: [facility] 06-15-2024 14:07-0400 Systolic blood pressure 126 mm[Hg] Laila Ramos MD Work Phone: [facility] 02-17-2024 14:06-0400 Body weight 100.25 kg Em Romero FRUIT HARVESTER.MEDICAL RECORDS SUPERVISOR Work Phone: [facility] 02-17-2024 14:06-0400 Diastolic blood pressure 66 mm[Hg] Em Romero FRUIT HARVESTER.MEDICAL RECORDS SUPERVISOR Work Phone: [facility] 02-17-2024 14:06-0400 Heart rate 64 /min Em Romero FRUIT HARVESTER.MEDICAL RECORDS SUPERVISOR Work Phone: [facility] 02-17-2024 14:06-0400 Respiratory rate 16 /min Em Romero FRUIT HARVESTER.MEDICAL RECORDS SUPERVISOR Work Phone: [facility] 02-17-2024 14:06-0400 Systolic blood pressure 112 mm[Hg] Em Romero FRUIT HARVESTER.MEDICAL RECORDS SUPERVISOR Work Phone: [facility] 07-12-2023 13:05-0400 Body height 182.9 cm Laila Ramos MD Work Phone: [facility] 07-12-2023 13:05-0400 Body weight 97.98 kg Laila Ramos MD Work Phone: [facility] 07-12-2023 13:05-0400 Diastolic blood pressure 70 mm[Hg] Laila Ramos MD Work Phone: [facility] 07-12-2023 13:05-0400 Heart rate 70 /min Laila Ramos MD Work Phone: [facility] 07-12-2023 13:05-0400 Respiratory rate 16 /min Laila Ramos MD Work Phone: [facility] 07-12-2023 13:05-0400 Systolic blood pressure 116 mm[Hg] Laila Ramos MD Work Phone: [facility] 01-22-2023 08:31-0500 Body temperature 97.81 [degF] Laila Ramos MD Work Phone: [facility] 01-22-2023 08:31-0500 Body weight 96.16 kg Laila Ramos MD Work Phone: [facility] 01-22-2023 08:31-0500 Diastolic blood pressure 68 mm[Hg] Laila Ramos MD Work Phone: [facility] 01-22-2023 08:31-0500 Heart rate 68 /min Laila Ramos MD Work Phone: [facility] 01-22-2023 08:31-0500 Respiratory rate 18 /min Laila Ramos MD Work Phone: [facility] 01-22-2023 08:31-0500 SaO2% (BldA) [Mass fraction] 96 % Laila Ramos MD Work Phone: [facility] 01-22-2023 08:31-0500 Systolic blood pressure 118 mm[Hg] Laila Ramos MD Work Phone: [facility] 11-17-2022 11:23-0500 Body height 179.1 cm Pul Wstr Work Phone: [facility] 11-17-2022 11:23-0500 Body weight 96.62 kg Pulm Wstr Work Phone: [facility] 11-02-2022 10:18-0500 Body weight 96.62 kg Laila Ramos MD Work Phone: [facility] 11-02-2022 10:18-0500 Diastolic blood pressure 62 mm[Hg] Laila Ramos MD Work Phone: [facility] 11-02-2022 10:18-0500 Heart rate 62 /min Laila Ramos MD Work Phone: [facility] 11-02-2022 10:18-0500 SaO2% (BldA) [Mass fraction] 96 % Laila Ramos MD Work Phone: [facility] 11-02-2022 10:18-0500 Systolic blood pressure 108 mm[Hg] Laila Ramos MD Work Phone: [facility] 07-03-2022 09:28-0400 Body weight 95.71 kg Em Romero FRUIT HARVESTER.MEDICAL RECORDS SUPERVISOR Work Phone: [facility] 07-03-2022 09:28-0400 Diastolic blood pressure 62 mm[Hg] Em Romero FRUIT HARVESTER.MEDICAL RECORDS SUPERVISOR Work Phone: [facility] 07-03-2022 09:28-0400 Heart rate 60 /min Em Romero FRUIT HARVESTER.MEDICAL RECORDS SUPERVISOR Work Phone: [facility] 07-03-2022 09:28-0400 Respiratory rate 16 /min Em Romero FRUIT HARVESTER.MEDICAL RECORDS SUPERVISOR Work Phone: [facility] 07-03-2022 09:28-0400 SaO2% (BldA) [Mass fraction] 95 % Em Romero FRUIT HARVESTER.MEDICAL RECORDS SUPERVISOR Work Phone: [facility] 07-03-2022 09:28-0400 Systolic blood pressure 108 mm[Hg] Em Romero FRUIT HARVESTER.MEDICAL RECORDS SUPERVISOR Work Phone: [facility] 06-30-2022 08:27-0400 Body temperature 97.2 [degF] Em Romero FRUIT HARVESTER.MEDICAL RECORDS SUPERVISOR Work Phone: [facility] 06-30-2022 08:27-0400 Body weight 94.8 kg Em Romero FRUIT HARVESTER.MEDICAL RECORDS SUPERVISOR Work Phone: [facility] 06-30-2022 08:27-0400 Diastolic blood pressure 64 mm[Hg] Em Romero FRUIT HARVESTER.MEDICAL RECORDS SUPERVISOR Work Phone: [facility] 06-30-2022 08:27-0400 Heart rate 59 /min Em Romero FRUIT HARVESTER.MEDICAL RECORDS SUPERVISOR Work Phone: [facility] 06-30-2022 08:27-0400 Respiratory rate 16 /min Em Romero FRUIT HARVESTER.MEDICAL RECORDS SUPERVISOR Work Phone: [facility] 06-30-2022 08:27-0400 SaO2% (BldA) [Mass fraction] 95 % Em Romero FRUIT HARVESTER.MEDICAL RECORDS SUPERVISOR Work Phone: [facility] 06-30-2022 08:27-0400 Systolic blood pressure 112 mm[Hg] Em Romero FRUIT HARVESTER.MEDICAL RECORDS SUPERVISOR Work Phone: [facility] 06-22-2022 13:05-0400 Body weight 94.35 kg Laila Ramos MD Work Phone: [facility] 06-22-2022 13:05-0400 Diastolic blood pressure 66 mm[Hg] Laila Ramos MD Work Phone: [facility] 06-22-2022 13:05-0400 Heart rate 67 /min Laila Ramos MD Work Phone: [facility] 06-22-2022 13:05-0400 SaO2% (BldA) [Mass fraction] 95 % Laila Ramos MD Work Phone: [facility] 06-22-2022 13:05-0400 Systolic blood pressure 112 mm[Hg] Laila Ramos MD Work Phone: [facility] 01-27-2022 14:45-0500 Body weight 96.62 kg Laila Ramos MD Work Phone: [facility] 01-27-2022 14:45-0500 Diastolic blood pressure 62 mm[Hg] Laila Ramos MD Work Phone: [facility] 01-27-2022 14:45-0500 Heart rate 84 /min Laila Ramos MD Work Phone: [facility] 01-27-2022 14:45-0500 Systolic blood pressure 110 mm[Hg] Laila Ramos MD Work Phone: [facility] Encounters Encounter Date Encounter Type Care Provider Facility Start: 10-05-2025 End: 10-05-2025 ambulatory SELF Facility:[facility] Start: 10-04-2025 End: 10-04-2025 ambulatory LAILA RAMOS Facility:[facility] Start: 08-03-2025 End: 08-03-[address] Laila Ramos MD Work Phone: -Radiology [facility] Start: 08-03-2025 End: 08-03-2025 Patient encounter procedure Chad Mcnamara PA -Radiology [facility] Work Phone: Start: 08-03-2025 End: 08-03-2025 ambulatory Chad Mcnamara Facility:[facility] Start: 07-25-2025 End: 07-25-2025 ambulatory LAILA RAMOS Facility:[facility] Start: 04-10-2025 End: 04-10-2025 ambulatory LAILA RAMOS Facility:[facility] Start: 04-10-2025 End: 04-10-2025 Office outpatient visit 25 minutes Laila Ramos MD Work Phone: [facility] [place] Comment on above: Essential hypertensi on (Primary Dx); Benign prostatic hyperplasia with nocturia; Major depressive disorder, single episode, mild; IFG (impaired fasting glucose); Hypomagnesemia; Vitamin D deficiency; Mixed hyperlipidemia; Dementia, unspecified dementia severity, unspecified dementia type, unspecified whether behavioral, psychotic, or mood disturbance or anxiety (HCC); Crohn's disease with complication, unspecified gastrointestinal tract location (HCC); Chronic ITP (idiopathic thrombocytopenia) (HCC); Chronic bronchitis, unspecified chronic bronchitis type (HCC); PAF (paroxysmal atrial fibrillation) (HCC); Encounter for long-term current use of medication Start: 04-10-2025 End: 04-10-2025 ambulatory LAILA RAMOS Facility:[facility] Start: 02-13-2025 End: 02-14-2025 Refill Laila Ramos MD Work Phone: [address] [place] [address] Comment on above: Refill Request Start: 12-15-2024 End: 12-15-2024 Refill Laila Ramos MD Work Phone: [facility] [place] Comment on above: Refill Request Start: 11-20-2024 End: 11-20-2024 ambulatory LAILA RAMOS Facility:[facility] Start: 11-20-2024 End: 11-20-2024 ambulatory LAILA RAMOS Facility:[facility] Start: 11-20-2024 End: 11-20-2024 Patient encounter procedure Laila Ramos MD Work Phone: [facility] [place] Comment on above: Medicare annual well ness visit, subsequent (Primary Dx); Essential hypertension; PAF (paroxysmal atrial fibrillation) (HCC); Major depressive disorder with single episode, in full remission (HCC); Crohn's disease of both small and large intestine without complication (HCC); Encounter for immunization; Vitamin D deficiency; IFG (impaired fasting glucose); Mixed hyperlipidemia Start: 11-14-2024 End: 11-15-2024 Telephone encounter Laila Ramos MD Work Phone: [facility] [place] Comment on above: Justin LISA Start: 11-09-2024 End: 11-10-2024 Telephone encounter Laila Ramos MD Work Phone: [facility] [place] Comment on above: Orders Start: 11-06-2024 End: 11-06-2024 Telephone encounter Laila Ramos MD Work Phone: [facility] [place] Comment on above: Occupational Therapy Evaluation Start: 11-03-2024 End: 11-03-2024 Telephone encounter Laila Ramos MD Work Phone: Internal [facility] Comment on above: [facility] calling for v erbal order (PT) Start: 11-02-2024 End: 11-02-2024 ambulatory EM ROMERO Facility:[facility] Start: 11-02-2024 End: 11-02-2024 Office outpatient visit 25 minutes Em Romero FRUIT HARVESTER.MEDICAL RECORDS SUPERVISOR Work Phone: [facility] [place] Comment on above: Essential hypertensi on (Primary Dx); Arthritis of left shoulder region; S/P shoulder replacement, left; Crohn's disease of both small and large intestine without complication (HCC); Pure hypercholesterolemia; Chronic ITP (idiopathic thrombocytopenia) (HCC); Vitamin D deficiency; H/O urinary retention Start: 10-31-2024 End: 11-02-2024 Telephone encounter Laila Ramos MD Work Phone: [facility] [place] Comment on above: faxing list of medic ations patient was taking at Rehab Start: 10-30-2024 End: 11-14-[address] LAILA RAMOS MD Facility:[facility] Start: 10-25-2024 ambulatory Laila Ramos Facilit y:[facility] Start: 10-25-2024 End: 10-28-2024 Telephone encounter Laila Ramos MD Work Phone: [facility] [place] Comment on above: Home Health Orders Start: 10-17-2024 End: 10-28-2024 Evaluation and management of inpatient QUINTIN KAY DO Justin [facility] Start: 10-12-2024 End: 10-17-2024 ambulatory Chad Castrejon Facility:[facility] Start: 10-04-2024 End: 10-04-2024 Patient encounter procedure Lili Hawk MD Work Phone: Neurology Comment on above: Essential tremor (Pr imary Dx) Start: 10-02-2024 End: 10-02-2024 Telephone encounter Chloé Farrell APRN.CHIPPING MACHINE OPERATOR Work Phone: Internal Medicine [place] Comment on above: Pre-Op Question Start: 09-26-2024 ambulatory Chloé Farrell Facility:[facility] Start: 09-25-2024 End: 09-25-2024 Patient encounter procedure Chloé Farrell APRN.CHIPPING MACHINE OPERATOR Work Phone: Internal Medicine [place] Comment on above: Arthritis of left sh oulder region (Primary Dx); Chronic left shoulder pain; Pre-op evaluation; Essential hypertension; Encounter for immunization; Parkinson's disease, unspecified whether dyskinesia present, unspecified whether manifestations fluctuate ([facility]); Pure hypercholesterolemia; PAF (paroxysmal atrial fibrillation) ([facility]); Chronic bronchitis, unspecified chronic bronchitis type ([facility]); IFG (impaired fasting glucose); Chronic ITP (idiopathic thrombocytopenia) ([facility]); Mild depression; Encounter for therapeutic drug monitoring; Vitamin D deficiency Start: 09-25-2024 End: 09-25-2024 Preprocedural examination done Chloé Farrell APRN.CHIPPING MACHINE OPERATOR Work Phone: [facility] Start: 09-21-2024 End: 09-21-2024 ambulatory [facility] [place] Start: 09-18-2024 End: 09-18-2024 [facility] Facility:[facility] Start: 07-03-2024 End: 07-03-2024 Office outpatient visit 25 minutes Laila Ramos MD Work Phone: [facility] Comment on above: Essential hypertensi on (Primary Dx); Vitamin D deficiency; IFG (impaired fasting glucose); Hypomagnesemia; Mixed hyperlipidemia; Benign prostatic hyperplasia with nocturia; Encounter for long-term current use of medication Start: 06-15-2024 End: 06-15-2024 Office outpatient visit 25 minutes Laila Ramos MD Work Phone: Internal Medicine [place] Comment on above: Anterior dislocation of left shoulder, subsequent encounter (Primary Dx); Essential hypertension; PAF (paroxysmal atrial fibrillation) (HCC) Start: 05-09-2024 Refill Laila choi MD Work Phone: Internal Medicine [place] Comment on above: Refill Request Start: 04-11-2024 Refill Chloé Farrell APRN.CHIPPING MACHINE OPERATOR Work Phone: [facility] [place] Comment on above: Refill Request Start: 03-29-2024 Refill Laila choi MD Work Phone: Internal Medicine [place] Comment on above: Refill Request Start: 03-09-2024 Refill Laila choi MD Work Phone: Family [facility] Comment on above: Refill Request Start: 03-06-2024 End: 03-06-2024 ambulatory [facility] Work Phone: Start: 03-06-2024 End: 03-06-2024 Patient encounter procedure [facility], [facility] Work Phone: Start: 02-17-2024 End: 02-17-2024 Office outpatient visit 25 minutes Em Romero APRN.CNS Work Phone: [facility] [place] Comment on above: Crohn's disease of [facility] small and large intestine without complication (HCC) (Primary Dx); Encounter for immunization; Parkinson's disease, unspecified whether dyskinesia present, unspecified whether manifestations fluctuate (HCC); Chronic ITP (idiopathic thrombocytopenia) (HCC); Chronic bronchitis, unspecified chronic bronchitis type (HCC); Major depressive disorder, single episode, mild (HCC); Tremor of both hands; Bilateral hand pain Start: 01-10-2024 Refill Laila choi MD Work Phone: Internal Medicine [place] Comment on above: Refill Request Start: 2023 Refill Chloé Farrell APRN.CHIPPING MACHINE OPERATOR Work Phone: Internal Medicine [place] Comment on above: Med Change Request Start: 11-01-2023 Telephone encounter Laila ayala MD Work Phone: Internal Medicine [place] Comment on above: Refill Request Patient Question Start: 07-27-2023 Refill Laila choi MD Work Phone: [facility] [place] Comment on above: Refill Request Start: 07-13-2023 Telephone encounter Laila ayala MD Work Phone: Internal Medicine [place] Comment on above: Patient Update Start: 07-12-2023 End: 07-12-2023 Office outpatient visit 40 minutes Laila Ramos MD Work Phone: [facility] [place] Comment on above: Essential hypertensi on (Primary Dx); Benign prostatic hyperplasia with nocturia; Vitamin D deficiency; Mixed hyperlipidemia; IFG (impaired fasting glucose); Bilateral impacted cerumen; Parkinson disease ([facility]); Essential tremor; Chronic ITP (idiopathic thrombocytopenia) ([facility]); Crohn's disease of both small and large intestine without complication ([facility]); Major depressive disorder, single episode, mild ([facility]); Encounter for long-term current use of medication Start: 06-17-2023 Refill Laila choi MD Work Phone: [address] [place] [address] Comment on above: Refill Request Start: 04-06-2023 Refill Laila choi MD Work Phone: [facility] [place] Comment on above: Refill Request Start: 01-22-2023 End: 01-22-2023 Office outpatient visit 25 minutes Laila Ramos MD Work Phone: [facility] [place] Comment on above: Esophageal dysphagia (Primary Dx); Chronic cough; Chronic bronchitis, unspecified chronic bronchitis type ([facility]); Essential hypertension Start: 01-20-2023 Telephone encounter Chloé loco APRN.CNP Work Phone: [facility] [place] Comment on above: Results Start: 01-11-2023 Refill Laila choi MD Work Phone: [facility] [place] Comment on above: Refill Request Start: 12-31-2022 Refill Laila choi MD Work Phone: [facility] [place] Comment on above: Refill Request Start: 11-17-2022 End: 11-17-2022 ambulatory [facility] Work Phone: [facility] Comment on above: Spirometry Start: 11-17-2022 End: 11-17-2022 Patient encounter procedure [facility] Work Phone: [facility] Start: 11-02-2022 End: 11-02-2022 Office outpatient visit 25 minutes Laila Ramos MD Work Phone: [facility] [place] Comment on above: Encounter for immuni zation (Primary Dx); Chronic cough; Chronic bronchitis, unspecified chronic bronchitis type (HCC); Decreased exercise tolerance; Vitamin D deficiency; IFG (impaired fasting glucose); Mixed hyperlipidemia; Encounter for long-term current use of medication Start: 10-15-2022 Telephone encounter Laila ayala MD Work Phone: Internal Medicine [place] Comment on above: Forms Start: 10-12-2022 Refill Laila choi MD Work Phone: [facility] [place] Comment on above: Refill Request Start: 07-29-2022 End: 07-29-2022 ambulatory [facility] Work Phone: Start: 07-29-2022 End: 07-29-2022 Patient encounter procedure [facility], [facility] Start: 07-03-2022 Telephone encounter Laila ayala MD Work Phone: [facility] [place] Comment on above: preop ok Start: 07-03-2022 End: 07-03-2022 Patient encounter procedure Em Romero APRN.MEDICAL RECORDS SUPERVISOR Work Phone: [facility] [place] Comment on above: Preop exam for inter nal medicine (Primary Dx) Start: 07-03-2022 End: 07-03-2022 Patient encounter status Em Romero APRN.MEDICAL RECORDS SUPERVISOR Work Phone: [facility] [place] Start: 07-01-2022 Telephone encounter Laila ayala MD Work Phone: [facility] [place] Comment on above: fax request Start: 06-30-2022 End: 06-30-2022 Patient encounter procedure Em Romero APRN.MEDICAL RECORDS SUPERVISOR Work Phone: Internal Medicine [place] Comment on above: Preop exam for inter nal medicine (Primary Dx); Encounter for immunization; Need for shingles vaccine; Moderate persistent asthma without complication; Acute cough Start: 06-30-2022 End: 06-30-2022 Patient encounter status Em Romero APRN.MEDICAL RECORDS SUPERVISOR Work Phone: [facility] [place] Start: 06-29-2022 Telephone encounter Laila ayala MD Work Phone: Internal Medicine [place] Comment on above: Appointment; Pre-Op paperwork Start: 06-22-2022 End: 06-22-2022 Subsequent hospital visit by physician [facility] [place] Work Phone: Radiology Comment on above: Preop examination [Z 01.818] Start: 06-22-2022 End: 06-22-2022 Office outpatient visit 25 minutes Laila Ramos MD Work Phone: [facility] Medicine [place] Comment on above: AB (asthmatic bronch itis), moderate persistent, with acute exacerbation (Primary Dx); Viral syndrome; Subacute cough; HARRIS (dyspnea on exertion); Fatigue, unspecified type; PAF (paroxysmal atrial fibrillation) ([facility]); Essential hypertension; Moderate persistent asthma without complication; Chronic ITP (idiopathic thrombocytopenia) ([facility]); Crohn's disease of both small and large intestine without complication ([facility]); Intermittent palpitations; Respiratory infection; Cough; Preop examination Start: 06-22-2022 End: 06-22-2022 Preprocedural examination done Laila Ramos MD Work Phone: [facility] [place] Start: 04-30-2022 Refill Laila choi MD Work Phone: [facility] [place] Comment on above: Refill Request Start: 01-27-2022 End: 01-27-2022 Office outpatient visit 25 minutes Laila Ramos MD Work Phone: Internal Medicine [place] Comment on above: Elevated fasting glu cose (Primary Dx); Essential tremor; Essential hypertension; Vitamin D deficiency; Mixed hyperlipidemia Start: 07-17-2021 End: 07-17-2021 Subsequent hospital visit by physician [facility] [place] Work Phone: Radiology Comment on above: Cough [R05] Procedures Date Procedure Procedure Detail Performing Clinician Start: 08-03-2025 Radiologic exam esophagus double contrast study Dr. Laila Ramos MD Work Phone: Start: 10-12-2024 Total shoulder replacement QUINTIN KAY DO Comment on above: Left Start: 03-06-2024 Computed tomography of abdomen and pelvis with contrast Start: 11-17-2022 Nitric oxide gas determination Laila Ramos MD Work Phone: Start: 11-17-2022 Brncdilat rspse spmt ry pre&post-brncdilat admn Laila Ramos MD Work Phone: Start: 11-02-2022 PFIZER-BIONTKAHR medical COVI D-19 BIVALENT BOOSTER VACCINE, AGE 12+ YR Laila Ramos MD Work Phone: Start: 11-02-2022 INFLUENZA SEASONAL QUADRIVALENT HIGH DOSE AGE 65+ Laila Ramos MD Work Phone: Start: 07-29-2022 Radiography of esophagus Start: 06-22-2022 Radiologic exam ches t 2 views Laila Ramos MD Work Phone: Start: 06-22-2022 Ecg routine ecg w/le ast 12 lds w/i&r [facility] Provider Start: 06-22-2022 2019 CORONAVIRUS Laila Ramos MD Work Phone: Start: 07-17-2021 Radiologic exam ches t 2 views Manuel Payne APRN.CNP Work Phone: H/O: artificial joint History of left shoulder replacement Laila Ramos MD Work Phone: Plan of Treatment Date Care Activity Detail Author Start: 11-20-2027 Diabetes Screening Diabetes Screening [facility] Start: 02-17-2027 Diabetes Screening Diabetes Screening [facility] Start: 10-29-2026 Diabetes Screening Diabetes Screening [facility] Start: 07-09-2026 DIABETES SCREEN DIABETES SCREEN [facility] Start: 03-18-2026 End: 03-18-2026 Patient encounter procedure 03/18/2026 2:40 PM EDT Office Visit [facility] [place] [address] [facility] [place] [address] Laila Ramos MD [address] [place] [address] 4 month follow up [facility] [place] Comment on above: 4 month follow up Start: 01-22-2026 DIABETES SCREEN DIABETES SCREEN [facility] Start: 11-21-2025 End: 11-21-2025 Patient encounter procedure 11/21/2025 9:40 AM EST Office Visit [facility] [place] [address] [place] [address] Laila Ramos MD [address] [place] [address] 4 month follow up [facility] [place] Comment on above: 4 month follow up Start: 09-25-2025 Covid-19 Vaccine () Covid-19 Vaccine () [facility] Comment on above: Postponed from 07/30/2024 (Declined at t his time) Start: 08-11-2025 End: 11-10-2025 Lipid 1996 panel - Serum or Plasma LIPID PANEL, FASTING Lab Routine Encounter for long-term current use of medication Mixed hyperlipidemia Expected: 08/11/2025 (Approximate), Expires: 11/10/2025 [facility] Comment on above: Expected: 08/11/2025 (Approximate), Expi res: 11/10/2025 Start: 07-27-2025 End: 07-27-2025 Patient encounter procedure 07/27/2025 1:40 PM EDT Office Visit [facility] [place] [address] [place] [address] Laila Ramos MD [address] [place] [address] 4 month follow up [facility] [place] Comment on above: 4 month follow up Start: 06-22-2025 DIABETES SCREEN DIABETES SCREEN [facility] Start: 04-10-2025 End: 04-10-2025 Patient encounter procedure 04/10/2025 3:20 PM EDT Office Visit [facility] [place] [address] [facility] [place] [address] Laila Ramos MD [address] [place] [address] 4 month follow up [facility] [place] Comment on above: 4 month follow up Start: 03-26-2025 End: 03-26-2025 Patient encounter procedure 03/26/2025 2:40 PM EDT Office Visit [facility] [place] [address] [place] [address] Laila Ramos MD [address] [place] [address] 4 month follow up [facility] [place] Comment on above: 4 month follow up Start: 02-05-2025 DIABETES SCREEN DIABETES SCREEN [facility] Start: 11-29-2024 Advance Directive Discussion Advance Directive Discussion [facility] Start: 11-20-2024 End: 10-29-2025 25-hydroxyvitamin D3 [Mass/volume] in Serum or Plasma VITAMIN D 25 HYDROXY Lab Routine Vitamin D deficiency Expected: 11/20/2024 (Approximate), Expires: 10/29/2025 [facility] Comment on above: Expected: 11/20/2024 (Approximate), Expi res: 10/29/2025 Start: 11-20-2024 End: 10-29-2025 CBC W Auto Differential panel - Blood COMPLETE BLOOD COUNT AND DIFFERENTIAL Lab Routine Essential hypertension S/P shoulder replacement, left Crohn's disease of both small and large intestine without complication (HCC) Chronic ITP (idiopathic thrombocytopenia) (HCC) Expected: 11/20/2024 (Approximate), Expires: 10/29/2025 [facility] Comment on above: Expected: 11/20/2024 (Approximate), Expi res: 10/29/2025 Start: 11-20-2024 End: 10-29-2025 Comprehensive metabolic 2000 panel - Serum or Plasma COMPREHENSIVE METABOLIC PANEL Lab Routine Essential hypertension S/P shoulder replacement, left Crohn's disease of both small and large intestine without complication (HCC) Expected: 11/20/2024 (Approximate), Expires: 10/29/2025 [facility] Work Phone: Comment on above: Expected: 11/20/2024 (Approximate), Expi res: 10/29/2025 Start: 11-20-2024 End: 10-29-2025 Lipid 1996 panel - Serum or Plasma LIPID PANEL BASIC Lab Routine Essential hypertension Expected: 11/20/2024 (Approximate), Expires: 10/29/2025 [facility] Comment on above: Expected: 11/20/2024 (Approximate), Expi res: 10/29/2025 Start: 11-20-2024 End: 11-20-2024 Patient encounter procedure 11/20/2024 10:00 AM EST Office Visit [facility] [place] [address] [place] [address] Laila Ramos MD [address] [place] [address] Medicare Wellness/4 month follow up [facility] [place] Comment on above: Medicare Wellness/4 month follow up Start: 11-05-2024 Covid-19 Vaccine ( season) Covid-19 Vaccine () [facility] Comment on above: Postponed from 07/30/2023 (Declined at t his time) Start: 11-02-2024 End: 11-02-2024 Patient encounter procedure 11/02/2024 9:00 AM EST Office Visit [facility] [place] [address] [place] [address] Em Romero APRN.MEDICAL RECORDS SUPERVISOR [address] [facility] [place] [address] Justinmalaika Keewn f/u left reverse total shoulder replacement [facility] [place] Comment on above: [place] f/u left reverse total shoulder replacement Start: 10-29-2024 End: 01-28-2025 25-hydroxyvitamin D3 [Mass/volume] in Serum or Plasma VITAMIN D 25 HYDROXY Lab Routine Vitamin D deficiency Expected: 10/29/2024 (Approximate), Expires: 01/28/2025 [facility] Comment on above: Expected: 10/29/2024 (Approximate), Expi res: 01/28/2025 Start: 10-29-2024 End: 01-28-2025 CBC panel - Blood by Automated count COMPLETE BLOOD COUNT Lab Routine Essential hypertension Encounter for long-term current use of medication Expected: 10/29/2024 (Approximate), Expires: 01/28/2025 [facility] Comment on above: Expected: 10/29/2024 (Approximate), Expi res: 01/28/2025 Start: 10-29-2024 End: 01-28-2025 Comprehensive metabolic 2000 panel - Serum or Plasma COMPREHENSIVE METABOLIC PANEL Lab Routine Essential hypertension IFG (impaired fasting glucose) Encounter for long-term current use of medication Expected: 10/29/2024 (Approximate), Expires: 01/28/2025 [facility] Work Phone: Comment on above: Expected: 10/29/2024 (Approximate), Expi res: 01/28/2025 Start: 10-29-2024 End: 01-28-2025 Hemoglobin A1c in Blood HEMOGLOBIN A1C Lab Routine IFG (impaired fasting glucose) Encounter for long-term current use of medication Expected: 10/29/2024 (Approximate), Expires: 01/28/2025 [facility] Comment on above: Expected: 10/29/2024 (Approximate), Expi res: 01/28/2025 Start: 10-29-2024 End: 01-28-2025 Lipid 1996 panel - Serum or Plasma LIPID PANEL BASIC Lab Routine Mixed hyperlipidemia Encounter for long-term current use of medication Expected: 10/29/2024 (Approximate), Expires: 01/28/2025 [facility] Comment on above: Expected: 10/29/2024 (Approximate), Expi res: 01/28/2025 Start: 10-29-2024 End: 01-28-2025 Magnesium [Mass/volume] in Serum or Plasma MAGNESIUM Lab Routine Hypomagnesemia Encounter for long-term current use of medication Expected: 10/29/2024 (Approximate), Expires: 01/28/2025 [facility] Comment on above: Expected: 10/29/2024 (Approximate), Expi res: 01/28/2025 Start: 10-04-2024 End: 10-04-2024 Patient encounter procedure 10/04/2024 2:00 PM EST Office Visit Neurology [address] [facility] [address] [place] [id number] Lili Hawk MD [address] [facility] [address] [place] [address] tremor of both hands Neurology Comment on above: tremor of both hands Start: 09-25-2024 End: 09-25-2024 Patient encounter procedure 09/25/2024 2:20 PM EDT Office Visit [facility] [place] [address] [place] [address] Chloé Farrell APRN.CHIPPING MACHINE OPERATOR [address] [place], [place] [id number] Pre Surgical Clearance; [facility] Left Shoulder Replacement; Dr. Healy [facility] [place] Comment on above: Pre Surgical Clearance; [facility] Left Shoulder Replacement; Dr. Healy Start: 09-25-2024 End: 12-25-2024 25-hydroxyvitamin D3 [Mass/volume] in Serum or Plasma VITAMIN D 25 HYDROXY Lab Routine Vitamin D deficiency Expected: 09/25/2024, Expires: 12/25/2024 [facility] Comment on above: Expected: 09/25/2024, Expires: Start: 09-25-2024 End: 12-25-2024 CBC W Auto Differential panel - Blood COMPLETE BLOOD COUNT AND DIFFERENTIAL Lab Routine Encounter for therapeutic drug monitoring Expected: 09/25/2024, Expires: 12/25/2024 [facility] Work Phone: Comment on above: Expected: 09/25/2024, Expires: Start: 09-25-2024 End: 12-25-2024 Comprehensive metabolic 2000 panel - Serum or Plasma COMPREHENSIVE METABOLIC PANEL Lab Routine Encounter for therapeutic drug monitoring Expected: 09/25/2024, Expires: 12/25/2024 [facility] Comment on above: Expected: 09/25/2024, Expires: Start: 09-25-2024 End: 12-25-2024 Hemoglobin A1c in Blood HEMOGLOBIN A1C Lab Routine IFG (impaired fasting glucose) Expected: 09/25/2024, Expires: 12/25/2024 [facility] Comment on above: Expected: 09/25/2024, Expires: Start: 09-25-2024 End: 12-25-2024 Lipid 1996 panel - Serum or Plasma LIPID PANEL BASIC Lab Routine Pure hypercholesterolemia Expected: 09/25/2024, Expires: 12/25/2024 [facility] Comment on above: Expected: 09/25/2024, Expires: Start: 09-25-2024 End: 12-25-2024 Magnesium [Mass/volume] in Serum or Plasma MAGNESIUM Lab Routine Encounter for therapeutic drug monitoring Expected: 09/25/2024, Expires: 12/25/2024 [facility] Comment on above: Expected: 09/25/2024, Expires: Start: 08-15-2024 Hepb vaccine adult 3 dose schedule for im use HEP B VACCINE, 3-DOSE, AGE 20+ YR (ENGERIX-B, RECOMBIVAX HB) Immunization/Injection Routine Encounter for immunization Expected: 08/15/2024 [facility] Work Phone: Comment on above: Expected: 08/15/2024 Start: 07-30-2024 Covid-19 Vaccine ( season) Covid-19 Vaccine ( season) [facility] Start: 07-30-2024 Influenza [facility] Start: 07-03-2024 End: 07-03-2024 Patient encounter procedure 07/03/2024 4:20 PM EDT Office Visit [facility] [place] [address] [place] [address] Laila Ramos MD [address] [place] [id number] 4 mth f/u [facility] [place] Comment on above: 4 mth f/u Start: 06-22-2024 End: 06-22-2024 Patient encounter procedure 06/22/2024 3:30 PM EDT Office Visit Neurology [address] [id number] Lili Hawk MD [address] [facility] [address] [place] [address] Tremor of both hands [R25.1] Neurology Comment on above: Tremor of both hands [R25.1] Start: 03-19-2024 Hepb vaccine adult 3 dose schedule for im use HEP B VACCINE, 3-DOSE, AGE 20+ YR (ENGERIX-B, RECOMBIVAX HB) Immunization/Injection Routine Encounter for immunization Expected: 03/19/2024 [facility] Work Phone: Comment on above: Expected: 03/19/2024 Start: 01-22-2024 SHINGRIX VACCINE (1 of 2) SHINGRIX VACCINE (1 of 2) [facility] Comment on above: Postponed from 1990 (Declined at t his time) Start: 01-22-2024 Urine microalbumin profile [facility] Comment on above: Postponed from 08/22/2018 (Declined at t his time) Start: 11-29-2023 Advance Directive Discussion Advance Directive Discussion [facility] Start: 11-11-2023 End: 01-11-2024 25-hydroxyvitamin D3 [Mass/volume] in Serum or Plasma VITAMIN D 25 HYDROXY Lab Routine Vitamin D deficiency Expected: 11/11/2023 (Approximate), Expires: 01/11/2024 [facility] Work Phone: Comment on above: Expected: 11/11/2023 (Approximate), Expi res: 01/11/2024 Start: 11-11-2023 End: 01-11-2024 CBC panel - Blood by Automated count CBC Lab Routine Essential hypertension Encounter for long-term current use of medication Expected: 11/11/2023 (Approximate), Expires: 01/11/2024 [facility] Work Phone: Comment on above: Expected: 11/11/2023 (Approximate), Expi res: 01/11/2024 Start: 11-11-2023 End: 01-11-2024 Comprehensive metabolic 2000 panel - Serum or Plasma COMP METABOLIC PANEL Lab Routine Essential hypertension Encounter for long-term current use of medication IFG (impaired fasting glucose) Expected: 11/11/2023 (Approximate), Expires: 01/11/2024 [facility] Work Phone: Comment on above: Expected: 11/11/2023 (Approximate), Expi res: 01/11/2024 Start: 11-11-2023 End: 01-11-2024 Hemoglobin A1c in Blood HGB A1C Lab Routine IFG (impaired fasting glucose) Expected: 11/11/2023 (Approximate), Expires: 01/11/2024 [facility] Work Phone: Comment on above: Expected: 11/11/2023 (Approximate), Expi res: 01/11/2024 Start: 11-11-2023 End: 01-11-2024 Lipid 1996 panel - Serum or Plasma LIPID PANEL BASIC Lab Routine Mixed hyperlipidemia Expected: 11/11/2023 (Approximate), Expires: 01/11/2024 [facility] Work Phone: Comment on above: Expected: 11/11/2023 (Approximate), Expi res: 01/11/2024 Start: 11-11-2023 End: 01-11-2024 Magnesium [Mass/volume] in Serum or Plasma MAGNESIUM BLD Lab Routine Encounter for long-term current use of medication Expected: 11/11/2023 (Approximate), Expires: 01/11/2024 [facility] Work Phone: Comment on above: Expected: 11/11/2023 (Approximate), Expi res: 01/11/2024 Start: 11-11-2023 End: 01-11-2024 Urate [Mass/volume] in Serum or Plasma URIC ACID BLOOD Lab Routine Encounter for long-term current use of medication Expected: 11/11/2023 (Approximate), Expires: 01/11/2024 [facility] Work Phone: Comment on above: Expected: 11/11/2023 (Approximate), Expi res: 01/11/2024 Start: 07-30-2023 Covid-19 Vaccine () Covid-19 Vaccine () [facility] Start: 07-30-2023 Influenza vaccination [facility] Start: 03-03-2023 End: 05-03-2023 25-hydroxyvitamin D3 [Mass/volume] in Serum or Plasma VITAMIN D 25 HYDROXY Lab Routine Vitamin D deficiency Expected: 03/03/2023 (Approximate), Expires: 05/03/2023 [facility] Work Phone: Comment on above: Expected: 03/03/2023 (Approximate), Expi res: 05/03/2023 Start: 03-03-2023 End: 05-03-2023 CBC panel - Blood by Automated count CBC Lab Routine Encounter for long-term current use of medication Expected: 03/03/2023 (Approximate), Expires: 05/03/2023 [facility] Work Phone: Comment on above: Expected: 03/03/2023 (Approximate), Expi res: 05/03/2023 Start: 03-03-2023 End: 05-03-2023 Comprehensive metabolic 2000 panel - Serum or Plasma COMP METABOLIC PANEL Lab Routine IFG (impaired fasting glucose) Encounter for long-term current use of medication Expected: 03/03/2023 (Approximate), Expires: 05/03/2023 [facility] Work Phone: Comment on above: Expected: 03/03/2023 (Approximate), Expi res: 05/03/2023 Start: 03-03-2023 COVID-19 VACCINE (4 - Pfizer series) COVID-19 VACCINE (4 - Pfizer series) [facility] Start: 03-03-2023 End: 05-03-2023 Hemoglobin A1c in Blood HGB A1C Lab Routine IFG (impaired fasting glucose) Expected: 03/03/2023 (Approximate), Expires: 05/03/2023 [facility] Work Phone: Comment on above: Expected: 03/03/2023 (Approximate), Expi res: 05/03/2023 Start: 03-03-2023 End: 05-03-2023 Lipid 1996 panel - Serum or Plasma LIPID PANEL BASIC Lab Routine Mixed hyperlipidemia Expected: 03/03/2023 (Approximate), Expires: 05/03/2023 [facility] Work Phone: Comment on above: Expected: 03/03/2023 (Approximate), Expi res: 05/03/2023 Start: 03-03-2023 End: 05-03-2023 Magnesium [Mass/volume] in Serum or Plasma MAGNESIUM BLD Lab Routine Encounter for long-term current use of medication Expected: 03/03/2023 (Approximate), Expires: 05/03/2023 [facility] Work Phone: Comment on above: Expected: 03/03/2023 (Approximate), Expi res: 05/03/2023 Start: 11-30-2022 SHINGRIX VACCINE (1 of 2) SHINGRIX VACCINE (1 of 2) [facility] Comment on above: Postponed from 1990 (Insurance Cov erage) Start: 11-30-2022 Urine microalbumin profile DTAP,TDAP,TD (2 - Tdap) [facility] Comment on above: Postponed from 08/22/2018 (Insurance Cov erage) Start: 11-29-2022 ADVANCE DIRECTIVE DISCUSSION ADVANCE DIRECTIVE DISCUSSION [facility] Start: 09-23-2022 SPIROMETRY SPIROMETRY [facility] Comment on above: Postponed from 1958 (Declined at t his time) Start: 07-30-2022 Influenza vaccination INFLUENZA (#1) [facility] Start: 05-02-2022 SHINGRIX VACCINE (1 of 2) SHINGRIX VACCINE (1 of 2) [facility] Comment on above: Postponed from 1990 (Declined at t his time) Start: 05-02-2022 Urine microalbumin profile DTAP,TDAP,TD (2 - Tdap) [facility] Comment on above: Postponed from 08/22/2018 (Declined at t his time) Start: 12-02-2021 COVID-19 VACCINE (3 - Booster for Pfizer series) COVID-19 VACCINE (3 - Booster for Pfizer series) [facility] Start: 11-29-2021 ADVANCE DIRECTIVE DISCUSSION ADVANCE DIRECTIVE DISCUSSION [facility] Start: 08-27-2021 COVID-19 VACCINE (3 - Booster for Pfizer series) COVID-19 VACCINE (3 - Booster for Pfizer series) [facility] Start: 08-22-2018 Urine microalbumin profile [facility] Start: 2015 RSV Vaccine (1 - 1-dose 75+ series) RSV Vaccine (1 - 1-dose 75+ series) [facility] Start: 2000 HEPATITIS B (1 of 3 - Risk 3-dose series) HEPATITIS B (1 of 3 - Risk 3-dose series) [facility] Start: 2000 Hepatitis B Vaccine (1 of 3 - Risk 3-dose series) Hepatitis B Vaccine (1 of 3 - Risk 3-dose series) [facility] Start: 2000 RSV Vaccine (1 - 1-dose 60+ series) RSV Vaccine (1 - 1-dose 60+ series) [facility] Start: 1990 SHINGRIX VACCINE (1 of 2) SHINGRIX VACCINE (1 of 2) [facility] Start: 1959 HEPATITIS A (1 of 2 - Risk 2-dose series) HEPATITIS A (1 of 2 - Risk 2-dose series) [facility] Start: 1959 Hepatitis A Vaccine (1 of 2 - Risk 2-dose series) Hepatitis A Vaccine (1 of 2 - Risk 2-dose series) [facility] Start: 1959 HEPATITIS B (1 of 3 - Risk 3-dose series) HEPATITIS B (1 of 3 - Risk 3-dose series) [facility] Start: 1958 MMR (1 of 2 - Risk 2-dose series) MMR (1 of 2 - Risk 2-dose series) [facility] Start: 1958 MMR Vaccine (1 of 2 - Risk 2-dose series) MMR Vaccine (1 of 2 - Risk 2-dose series) [facility] Start: 1958 SPIROMETRY SPIROMETRY [facility] Start: 1950 Meningococcal B Vaccine: Consider Based On Risk (1 of 4 - Increased Risk) Meningococcal B Vaccine: Consider Based On Risk (1 of 4 - Increased Risk) [facility] Start: 1950 MENINGOCOCCAL B: Consider based on risk (1 of 4 - Increased Risk Bexsero 2-dose series) MENINGOCOCCAL B: Consider based on risk (1 of 4 - Increased Risk Bexsero 2-dose series) [facility] Start: 1950 MENINGOCOCCAL B: Consider based on risk (1 of 4 - Increased Risk) MENINGOCOCCAL B: Consider based on risk (1 of 4 - Increased Risk) [facility] Start: 1941 HEPATITIS A (1 of 2 - Risk 2-dose series) HEPATITIS A (1 of 2 - Risk 2-dose series) [facility] End: 04-10-2026 25-hydroxyvitamin D3 [Mass/volume] in Serum or Plasma VITAMIN D 25 HYDROXY Lab Routine Vitamin D deficiency Every 4 months for 60 Occurrences starting 04/10/2025 until 04/10/2026 [facility] Comment on above: Every 4 months for 60 Occurrences starti ng 04/10/2025 until 04/10/2026 25-hydroxyvitamin D3 [Mass/volume] in Serum or Plasma VITAMIN D 25 HYDROXY Lab Routine Vitamin D deficiency 04/10/2025 4:19 PM EDT [facility] End: 04-10-2026 CBC panel - Blood by Automated count COMPLETE BLOOD COUNT Lab Routine Essential hypertension Encounter for long-term current use of medication Every 4 months for 60 Occurrences starting 04/10/2025 until 04/10/2026, 1 completed [facility] Comment on above: Every 4 months for 60 Occurrences starti ng 04/10/2025 until 04/10/2026, 1 completed End: 04-10-2026 Comprehensive metabolic 2000 panel - Serum or Plasma COMPREHENSIVE METABOLIC PANEL Lab Routine Essential hypertension IFG (impaired fasting glucose) Encounter for long-term current use of medication Every 4 months for 60 Occurrences starting 04/10/2025 until 04/10/2026 [facility] Work Phone: Comment on above: Every 4 months for 60 Occurrences starti ng 04/10/2025 until 04/10/2026 Comprehensive metabolic 2000 panel - Serum or Plasma COMPREHENSIVE METABOLIC PANEL Lab Routine Essential hypertension IFG (impaired fasting glucose) Encounter for long-term current use of medication 04/10/2025 4:19 PM EDT [facility] End: 06-22-2023 ECG COMPLETE ECG COMPLETE ECG Routine HARRIS (dyspnea on exertion) PAF (paroxysmal atrial fibrillation) (HCC) Intermittent palpitations 1 Occurrences starting 06/22/2022 until 06/22/2023 [facility] Work Phone: Comment on above: 1 Occurrences starting 06/22/2022 until 06/22/2023 End: 04-10-2026 Hemoglobin A1c in Blood HEMOGLOBIN A1C Lab Routine IFG (impaired fasting glucose) Encounter for long-term current use of medication Every 4 months for 60 Occurrences starting 04/10/2025 until 04/10/2026 [facility] Comment on above: Every 4 months for 60 Occurrences starti ng 04/10/2025 until 04/10/2026 Hemoglobin A1c in Blood HEMOGLOBIN A1C Lab Routine IFG (impaired fasting glucose) Encounter for long-term current use of medication 04/10/2025 4:19 PM EDT [facility] Hepa vaccine adult dose for intramuscular use HEPATITIS A VACCINE ADULT IM Immunization/Injection Routine Encounter for immunization 1 Occurrences starting 06/30/2022 [facility] Work Phone: Comment on above: 1 Occurrences starting 06/30/2022 Hepa vaccine adult dose for intramuscular use HEP A VACCINE, ADULT (HAVRIX, VAQTA) Immunization/Injection Routine Encounter for immunization 1 Occurrences starting 02/17/2024 [facility] Work Phone: Comment on above: 1 Occurrences starting 02/17/2024 Hepb vaccine adult 3 dose schedule for im use HEPATITIS B VACCINE, ADULT AGE 20+, IM Immunization/Injection Routine Encounter for immunization 1 Occurrences starting 06/30/2022 [facility] Work Phone: Comment on above: 1 Occurrences starting 06/30/2022 Hepb vaccine adult 3 dose schedule for im use HEP B VACCINE, 3-DOSE, AGE 20+ YR (ENGERIX-B, RECOMBIVAX HB) Immunization/Injection Routine Encounter for immunization 1 Occurrences starting 02/17/2024 [facility] Work Phone: Comment on above: 1 Occurrences starting 02/17/2024 End: 04-10-2026 Magnesium [Mass/volume] in Serum or Plasma MAGNESIUM Lab Routine Encounter for long-term current use of medication Hypomagnesemia Every 4 months for 60 Occurrences starting 04/10/2025 until 04/10/2026 [facility] Comment on above: Every 4 months for 60 Occurrences starti ng 04/10/2025 until 04/10/2026 Magnesium [Mass/volume] in Serum or Plasma MAGNESIUM Lab Routine Encounter for long-term current use of medication Hypomagnesemia 04/10/2025 4:19 PM EDT [facility] Measles mumps rubell a virus vaccine live subq MMR VIRUS IMMUNIZATION, SUBCUT Immunization/Injection Routine Encounter for immunization 1 Occurrences starting 06/30/2022 [facility] Work Phone: Comment on above: 1 Occurrences starting 06/30/2022 Measles mumps rubell a virus vaccine live subq MMR VACCINE (M-M-R II, PRIORIX) Immunization/Injection Routine Encounter for immunization 1 Occurrences starting 02/17/2024 [facility] Work Phone: Comment on above: 1 Occurrences starting 02/17/2024 MENINGOCOCCAL B VACCINE (BEXSERO) MENINGOCOCCAL B VACCINE (BEXSERO) Immunization/Injection Routine Encounter for immunization 1 Occurrences starting 02/17/2024 [facility] Work Phone: Comment on above: 1 Occurrences starting 02/17/2024 MENINGOCOCCAL GROUP B VACCINE 2 DOSE MENINGOCOCCAL GROUP B VACCINE 2 DOSE Immunization/Injection Routine Encounter for immunization 1 Occurrences starting 06/30/2022 [facility] Work Phone: Comment on above: 1 Occurrences starting 06/30/2022 PFIZER-BIONTECH COVID-19 VACCINE, AGE 12+ YR (CH TOP) PFIZER-BIONTECH COVID-19 VACCINE, AGE 12+ YR (CH TOP) Immunization/Injection Routine Encounter for immunization 1 Occurrences starting 06/30/2022 [facility] Work Phone: Comment on above: 1 Occurrences starting 06/30/2022 Removal impacted cerumen irrigation/lvg unilat AMBULATORY EAR LAVAGE/IRRIGATION Procedures Routine Bilateral impacted cerumen Ordered: 07/12/2023 [facility] Work Phone: Comment on above: Ordered: 07/12/2023 End: 12-02-2023 SPIROMETRY BASELINE ONLY SPIROMETRY BASELINE ONLY PFT Routine Chronic cough Chronic bronchitis, unspecified chronic bronchitis type (HCC) Decreased exercise tolerance 1 Occurrences starting 11/02/2022 until 12/02/2023 [facility] Work Phone: Comment on above: 1 Occurrences starting 11/02/2022 until 12/02/2023 [facility] Immunizations Immunization Date Immunization Notes Care Provider Fa cili 09-25-2024 influenza virus vacc ine, unspecified formulation QUINTIN KAY DO [facility] 09-25-2024 influenza, high dose seasonal, preservative-free Chloé Jami FRUIT HARVESTER.CHIPPING MACHINE OPERATOR Work Phone: [facility] 11-05-2023 influenza (HD-IIV4) vaccine, age 65+ yr, high dose, quadrivalent, PF (FLUZONE HIGH-DOSE) Chloé Penar FRUIT HARVESTER.CHIPPING MACHINE OPERATOR Work Phone: [facility] 11-05-2023 influenza virus vacc ine, unspecified formulation Laila Ramos MD Work Phone: [facility] 11-02-2022 COVID-19 booster vaccine, age 12+ yr, bivalent (PFIZERStyleTreadNTKAHR medical) [facility] Work [facility]: [facility] 11-02-2022 influenza, high-dose , quadrivalent vaccine (FLUZONE HIGH DOSE QUADRIVALENT) [facility] Work Phone: [facility] 11-02-2022 influenza virus vacc ine, unspecified formulation Laila Ramos MD Work Phone: [facility] 09-23-2021 influenza virus vacc ine, unspecified formulation QUINTIN KAY DO [facility] 09-23-2021 influenza, high-dose , quadrivalent vaccine (FLUZONE HIGH DOSE QUADRIVALENT) Laila Ramos MD Work Phone: [facility] 07-02-2021 SARS-CoV-2 mRNA (tozinameran) vaccine QUINTIN KAY DO [facility] [place] Comment on above: Result Comment: 2023: [id number] 06-10-2021 SARS-CoV-2 mRNA (tozinameran) vaccine QUINTIN KAY DO [facility] Comment on above: Result Comment: 2023: [id number] 10-09-2020 influenza virus vacc ine, unspecified formulation QUINTIN KAY DO [facility] 10-09-2020 influenza, high-dose , quadrivalent vaccine (FLUZONE HIGH DOSE QUADRIVALENT) Laila Ramos MD Work Phone: [facility] Work Phone: 09-08-2019 influenza virus vacc ine, unspecified formulation QUINTIN KAY DO [facility] 09-08-2019 influenza, high dose seasonal, preservative-free Laila Ramos MD Work Phone: [facility] 09-12-2018 influenza virus vacc ine, unspecified formulation QUINTIN KAY DO [facility] 09-12-2018 influenza, high dose seasonal, preservative-free Laila Ramos MD Work Phone: [facility] 08-29-2018 Influenza virus vaccine [facility] 10-19-2017 influenza virus vacc ine, unspecified formulation QUINTIN KAY DO [facility] 10-19-2017 influenza, high dose seasonal, preservative-free Laila Ramos MD Work Phone: [facility] 10-08-2017 Influenza virus vaccine [facility] 10-26-2016 influenza, high dose seasonal, preservative-free Laila Ramos MD Work Phone: [facility] 10-07-2015 influenza virus vacc ine, unspecified formulation QUINTIN KAY DO [facility] 10-07-2015 influenza, high dose seasonal, preservative-free Laila Ramos MD Work Phone: [facility] Work Phone: 12-13-2014 pneumococcal conjuga te vaccine, 13 valent Laila Ramos MD Work Phone: [facility] 09-07-2014 influenza virus vacc ine, unspecified formulation QUINTIN SCHEATZLE DO [facility] 09-07-2014 influenza, seasonal, injectable Laila Ramos MD Work Phone: [facility] 08-28-2013 influenza virus vacc toby, unspecified formulation Laila Ramos MD Work Phone: [facility] 08-26-2012 influenza virus vacc toby, unspecified formulation Laila Ramos MD Work Phone: [facility] 09-22-2011 influenza virus vacc ine, unspecified formulation Laila Ramos MD Work Phone: [facility] 10-09-2010 influenza virus vacc toby, unspecified formulation Laila Ramos MD Work Phone: [facility] 12-17-2009 novel influenza-H1N1 -09, preservative-free, injectable Chloé Farrell FRUIT HARVESTER.CHIPPING MACHINE OPERATOR Work Phone: [facility] 10-03-2008 influenza virus vacc toby, unspecified formulation Laila Ramos MD Work Phone: [facility] Work Phone: 08-22-2008 diphtheria and tetan us toxoids, adsorbed for pediatric use Laila Ramos MD Work Phone: [facility] Work Phone: 10-05-2007 influenza virus vacc toby, unspecified formulation Laila Ramos MD Work Phone: [facility] Work Phone: 10-05-2007 pneumococcal polysaccharide vaccine, 23 valent Laila Ramos MD Work Phone: [facility] Work Phone: 10-07-2006 influenza virus vacc toby, unspecified formulation Laila Ramos MD Work Phone: [facility] 10-07-2005 influenza virus vacc toby, unspecified formulation Laila Ramos MD Work Phone: [facility] 08-18-2001 pneumococcal polysaccharide vaccine, 23 valent Laila Ramos MD Work Phone: [facility] Work Phone: Payers Date Payer Category Payer Self-pay [id number] 2005 Medicare MEDICARE MEDICAR E A AND B [id number] 2005-Present [phone] [place] [address] Medicare [id number] 2005 Medicare [id number] 2005 Medicare [id number] 2004 Blue Cross Blue Shield BLUE CARD TRADITIONAL OOS [id number] 2004 Unknown ANTHEM BLUE CARD TRADITIONAL OOS [id number] 2004-Present [phone] [address] [place] [address] Indemnity [id number] 2004 Unknown ANTHEM BLUE CARD TRADITIONAL OOS [id number] 2004-Present [phone] [address] [place] [address] Indemnity [id number] 2004 Unknown [id number] 1940 Unknown [id number] Unknown [id number] Unknown [id number] Unknown [id number] Unknown [id number] Unknown [id number] Unknown [id number] Social History Date Type Detail Facility Start: 07-25-2012 End: 09-13-2024 Tobacco smoking status NHIS Ex-smoker [facility] Start: 11-29-1957 End: 11-29-1962 History of tobacco use Current smoker [facility] Start: 11-29-1957 End: 11-29-1962 History of tobacco use Cigarette Smoker [facility] End: 11-29-1962 History of tobacco use Pipe Smoker [facility] Start: 09-23-2021 End: 11-20-2024 Alcohol intake Current drinker of alcohol (finding) [facility] Start: 09-23-2021 End: 07-12-2023 Alcohol intake [facility] Start: 07-25-2012 End: 11-17-2022 Tobacco Comment Pt smoked on & off x 5 years, never a heavy smoker [facility] Start: 1940 Sex Assigned At Not on file [facility] Start: 06-17-2021 End: 11-02-2022 Exposure to SARS-CoV-2 (event) Not sure [facility] Start: 03-20-2022 Tobacco smoking stat us MAIS Unknown if ever smoked [facility] Start: 08-25-2021 [facility] Start: 08-25-2021 Alone [facility] Start: 08-25-2021 Non-smoker [facility] Start: 1940 Sex Assigned At Male W [facility] Start: 07-25-2012 End: 09-25-2024 Tobacco use and exposure Smokeless tobacco non-user [facility] Start: 03-01-2023 End: 07-12-2023 Tobacco use panel [facility] Adult Depression Screening Assessment 0 [facility] Start: 10-16-2024 Tobacco smoking status Never s moked [facility] (finding[facility] How often to you hav e a drink containing alcohol? Monthly or less [facility] How many standard drinks containing alcohol do you have on a typical day? 1 or 2 [facility] How often do you hav e 6 or more drinks on 1 occasion? Never [facility] Medical Equipment Procedure Code Equipment Code Equipment Origin al Text Equipment Identifier Dates SCREW FDA Start: 10-12-2024 ([id number] Reverse shoulder prosthesis base plate [id number] FDA Start: 10-12-2024 Polyethylene rev erse shoulder prosthesis cup ()[id number] FDA Start: 10-12-2024 Coated shoulder humeral stem prosthesis ()[id number] FDA Start: 10-12-2024 Reverse shoulder prosthesis head ()[id number] FDA Start: 10-12-2024 Orthopaedic bone screw, non-bioabsorbable, sterile ()[id number] FDA Start: 10-12-2024 Goals Date Patient Goal Desired Activity /State Personal health goal Personal health goal Comment on above: Formatting of this n ote might be different from the original. To avoid falls Comment on above: Formatting of this n ote might be different from the original. To avoid falls Functional Status Date Assessment Result Facility 10-28-2024 Functional Status Skin Care Prev entative Intervention(s) heel(s)s elevated [facility] 10-28-2024 Functional Status Room check performed [facility] 10-28-2024 Functional Status [facility] 10-27-2024 Functional Status [facility] 10-27-2024 Functional Status Repositions self [facility] [place] 10-27-2024 Functional Status [facility]-27[facility] Functional Status [facility] 10-26-2024 Functional Status [facility]26[facility] Status [facility] 10-25[facility] Status [facility] 10[facility]25[facility] Status [facility] 10[facility]25[facility] Status [facility]-25[facility] [place] 10-25-2024 Functional Status Has 2 children that he claims with only one in the area but she is not dependable Pt has some close friends he meets every for coffee. [facility] 10-24-[facility]24 Functional Status [facility] 10-23-2024 Functional Status carry plastic bag with laundry up and down the steps [facility] 10-22-2024 Functional Status [facility] 10-21-2024 Functional Status [facility] 10-20-2024 Functional Status Antiembolism S tocking On/Re-applied bilateral knee high [facility] 10-19-2024 Functional Status 3pm-7pm [facility] 10-18-[facility] Functional Status [facility] 10-18-2024 Functional Status [facility] 10[facility]18-[facility]24 Functional Status 1st floor bedr oom, 1st floor bathroom [facility] 10-18-2024 Functional Status [facility]-17[facility] Functional Status Sensory Deficits None [facility] [place] 10-16-2024 Functional Status [facility] 06-04-2015 Are you deaf, or do you have serious difficulty hearing No 06/04/2015 3:23 PM EDT Kellie Matt RN No [facility] 06-04-2015 Are you blind, or do you have serious difficulty seeing, even when wearing glasses No 06/04/2015 3:23 PM EDT Kellie Matt, RN No [facility] 06-04-2015 Do you have serious difficulty walking or climbing stairs No 06/04/2015 3:23 PM EDT Kellie Matt RN No [facility] 06-04-2015 Do you have difficul ty dressing or bathing No 06/04/2015 3:23 PM EDT Kellie Matt RN No [facility] 06-04-2015 Because of a physica l, mental, or emotional condition, do you have difficulty doing errands alone such as visiting a physician's office or shopping No 06/04/2015 3:23 PM EDT Kellie Matt RN [facility] Mental Status Date Assessment Result Facility 10-28-2024 Mental Status Oriented x 4 [facility] 10-28-2024 Mental Status [facility] 10-27-2024 Mental Status [facility] 06-04-2015 Because of a physica l, mental, or emotional condition, do you have serious difficulty concentrating, remembering, or making decisions No 06/04/2015 3:23 PM EDT Kellie Matt RN [facility] Clinical Notes 02-17-2011 to 08-03-2025 Patient InstructionsLaila Ramos MD - 04/10/2025 3:20 PM EDTTelephone Encounter - Chloé Farrell APRN.CNP - 02/14/2025 10:02 AM EDTTelephone Encounter - Kanchan Benjamin - 02/13/2025 3:35 PM EDT Note Date & Type Note Facility 08-03-2025 Radiology Diagnostic study note [facility] Imaging Services [address] [place] [address] [id number] Esophagus Dual Contrast MR#: [id number] Acct: [id number] Name: JAQUIEVELIA Shen Shetty Rep #: [id number] : 1940 M 84 From: Bharathi Ward MD PCP: Dr. Laila Ramos MD Status: RE G CLI Study:Esophagus Dual Contrast Date of Exam: 08/03/25 Exam# [id number] Ordering Dr: Chad Mcnamara EXAM: Esophagram barium swallow. CLINICAL HISTORY: Persistent cough. Dysphagia for solids. COMPARISON: None TECHNIQUE: The patient ingested barium. Fluoroscopic imaging was performed. Dose report: 40 seconds of fluoroscopy. Radiation dose: 8.1 mGy. The esophagus is unremarkable. No evidence of gastroesophageal reflux. No obstruction to the flow of contrast. The patient ingested a 12 mm tablet the barium. There is transient holdup at the gastroesophageal junction although it FINDINGS: Unremarkable air-contrast esophagram barium swallow. RAD/Esophagus Dual Contrast IMPRESSION: Unremarkable air-contrast esophagram barium swallow. Reading Location: [place] [address] CC: Dr. Laila Ramos MD; KERRY Parmar ~ Stage Builder: Signed [facility] 07-25-2025 Note HNO ID: [id number] Author: LAILA RAMOS MD Service: ? Author Type: Physician Type: Progress Notes Filed: 08/30/2025 23:56 Note Text: Subjective Evelia Nails Jr. is a 84 year old male. HPI SUBJECTIVE: Evelia Nails is an 84-year-old male, with a history of dysphagia, presenting for a 4-month follow-up visit. Evelia reports ongoing issues with dysphagia, particularly with pills getting stuck in his throat, causing a terrible taste and occasional coughing up of pill fragments. He also experiences burning sensations in his esophagus or throat area. He has been managing this by drinking water to help swallow the pills but has not tried using applesauce or yogurt. He was evaluated by Dr. Mcnamara at [place], who performed a nasal endoscopy that was inconclusive. He is scheduled for further evaluation under anesthesia at the hospital on August 03. Evelia is currently taking buspirone BID, metoprolol BID, Singulair, sucralfate BID, folic acid, Lialda, Prevacid, Zoloft, and Flomax. He has discontinued Cardizem and Aricept. He denies needing any medication refills at this time. He denies experiencing lightheadedness or dizziness. 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 tamsulosin (FLOMAX) 0.4 mg Take 2 capsules by mouth daily at bedtime. magnesium oxide (MAG-OX) 400 mg (241.3 mg magnesium) tablet Take 1 tablet by mouth once daily. folic acid 1 mg tablet Take 1 tablet by mouth two times a day. montelukast (SINGULAIR) 10 mg tablet Take 1 tablet by mouth daily at bedtime. meloxicam (MOBIC) 7.5 mg tablet Take 7.5 mg by mouth. acetaminophen (TYLENOL EXTRA STRENGTH) 500 mg tablet Take 1,000 mg by mouth every 8 hours as needed. finasteride (PROSCAR) 5 mg tablet Take 5 mg by mouth once daily. glucosamine/msm/chondrt/C/hyal (IWHFYOESBDK-OGJYQFIMOWM-ZIA ORAL) Take by mouth. MV with Nvq-Qimfxpth-Joyerh (CENTRUM SILVER) 0.4-300-250 mg-mcg-mcg tab Take 1 tablet by mouth once daily. VIT C/E/ZN/COPPR/LUTEIN/ZEAXAN (PRESERVISION AREDS 2 ORAL) Take 2 capsules by mouth once daily. coenzyme Q10 (COENZYME Q-10) 100 mg cap capsule Take 1 capsule by mouth. cyanocobalamin (VITAMIN B-12) 1,000 mcg tab Take 1 tablet by mouth once daily. donepezil (ARICEPT) 10 mg tablet Take 1 tablet by mouth daily at bedtime. busPIRone (BUSPAR) 10 mg tablet Take 1 tablet by mouth two times a day. metoprolol tartrate 75 mg tab Take 1 tablet by mouth two times a day. sucralfate (CARAFATE) 1 gram tablet Take 1 tablet by mouth two times a day. lansoprazole (PREVACID) 30 mg capsule Take 1 capsule by mouth two times a day. 1/2 hr before meal. No current facility-administered medications for this visit. Review of Systems Objective BP 107/59 Pulse 76 Resp 16 Wt 94.3 kg (207 lb 14.3 oz) SpO2 96% BMI 28.47 kg/m? Last 5 Encounter Wt Readings: Date: Wt: 07/25/2025 94.3 kg (207 lb 14.3 oz) 04/10/2025 92.5 kg (203 lb 14.8 oz) 11/20/2024 93 kg (205 lb 0.4 oz) 11/02/2024 93.2 kg (205 lb 7.5 oz) 10/04/2024 95.4 kg (210 lb 5.1 oz) No waist measurement recorded Estimated body mass index is 28.47 kg/m? as calculated from the following: Height as of 11/20/24: 182 cm (5' 11.65). Weight as of this encounter: 94.3 kg (207 lb 14.3 oz). Last 5 Encounter BP Readings: Date: BP: 07/25/2025 107/59 04/10/2025 116/58 11/20/2024 111/70 11/02/2024 100/61 09/25/2024 118/68 Physical Exam Vitals reviewed. Constitutional: Appearance: Normal appearance. Eyes: Conjunctiva/sclera: Conjunctivae normal. Cardiovascular: Rate and Rhythm: Normal rate and regular rhythm. Heart sounds: Normal heart sounds. Pulmonary: Effort: Pulmonary effort is normal. Breath sounds: Normal breath sounds. Musculoskeletal: Right lower leg: No edema. Left lower leg: No edema. Skin: General: Skin is warm and dry. Neurological: General: No focal deficit present. Mental Status: He is alert and oriented to person, place, and time. Psychiatric: Mood and Affect: Mood normal. Behavior: Behavior normal. Thought Content: Thought content normal. Judgment: Judgment normal. # Pharyngoesophageal dysphagia (R13.14) # Gastroesophageal reflux disease, unspecified whether esophagitis present (K21.9) - Persistent dysphagia with pills getting stuck and dissolving i (more content not included)... [facility] 04-10-2025 Instructions Laila Ramos MD - 04/10/2025 4:02 PM EDT Flomax Adjustment: You are to take 2 Flomax pills at bedtime (instead of 1) as a trial to help empty your bladder better overnight. If you feel unwell with the increased dose, you can switch back to 1 pill. Medication Refills: New refills have been sent for your sertraline, lansoprazole, and Flomax. Continue taking your Tylenol as needed for discomfort or cough, and keep using Singulair and your kyeh-nnp-tzgdvvw magnesium oxide (take 1 tablet daily). Lab Orders: Standing orders are now in place for a lab panel (A1c, blood counts, magnesium, and vitamin D) to be drawn as part of your routine monitoring. Non-fasting lipid/cholesterol labs will be scheduled for your next lab visit. Respiratory Monitoring: Continue to monitor your breathing, cough, and mucus production. If you experience significantly increased shortness of breath or a marked worsening of your cough, contact us promptly. Balance & Hydration: Take your time when turning or moving--make wide, slow turns to reduce the risk of losing balance. Stay well hydrated throughout the day. Follow-Up Appointments: - Your follow-up office appointments are scheduled through October; an additional appointment may be added in February of next year. - You also have a April appointment with your urologist, Dr. Hairston, for ongoing prostate management. documented in this encounter [facility] 04-10-2025 History of Present illness Narrative This note was created using [employer]DVMriter. Subjective Evelia Nails Jr. is a 84 year old male. Patient presents with: 4 month follow-up Evelia is a 84-year-old male with a history of chronic bronchitis, presenting for a 4-month follow-up. Evelia reports a recent episode of bronchitis a few weeks ago, characterized by significant dyspnea, particularly at night, and a substantial increase in his usual cough frequency. He also experienced a sore throat and produced thick mucus. He managed the symptoms at home with increased fluid intake, Tylenol, and one dose of cough medicine, noting that he toughed it out. He did not seek medical attention at the time but considered it due to the severity of his symptoms. He denies using a pulse oximeter at home. He expresses concern about his lung capacity decreasing with age and the potential for future severe episodes. He still has some inhalers left from previous prescriptions. Evelia also reports nocturia, waking 3-4 times per night to urinate, and expresses interest in adjusting his Flomax dosage to improve this. He notes an increase in urine volume since his recent surgery and rehabilitation. He denies excessive caffeine intake, consuming only half a cup of coffee once a week, and has limited his soft drink consumption. He reports a recent cystoscopy in February and has a follow-up appointment with his urologist in April. He mentions a history of holding nearly 700 mL of fluid post-surgery. Evelia denies lightheadedness or dizziness, but reports an equilibrium problem, necessitating caution when turning his body or changing direction quickly to avoid falls. He maintains hydration by keeping water beside him and limiting soft drinks. He takes Tylenol as needed, particularly before bedtime to help relax when feeling stressed. He denies a true allergy to penicillin, stating it was ineffective for him in the past. 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 Take one (1) tablet daily at noon for one week and then stop completely. sucralfate (CARAFATE) 1 gram tablet Take 1 tablet by mouth two times a day. metoprolol tartrate, short acting, 75 mg tab Take 1 tablet by mouth two times a day. CARDIZEM CD 120 mg 24 hr capsule Take 1 capsule by mouth once daily. busPIRone (BUSPAR) 10 mg tablet Take 1 tablet by mouth two times a day. donepezil (ARICEPT) 10 mg tablet Take 1 tablet by mouth daily at bedtime. folic acid 1 mg tablet Take 1 tablet by mouth two times a day. Mesalamine (LIALDA) 1.2 gram EC tablet Take 1 tablet by mouth two times a day. montelukast (SINGULAIR) 10 mg tablet Take 1 tablet by mouth daily at bedtime. meloxicam (MOBIC) 7.5 mg tablet Take 7.5 mg by mouth. finasteride (PROSCAR) 5 mg tablet Take 5 mg by mouth once daily. glucosamine/msm/chondrt/C/hyal (PWJXKPGSGGE-POHAREHAMPT-JUX ORAL) Take by mouth. MV with Hwq-Zmyihocn-Fhjmof (CENTRUM SILVER) 0.4-300-250 mg-mcg-mcg tab Take 1 tablet by mouth once daily. VIT C/E/ZN/COPPR/LUTEIN/ZEAXAN (PRESERVISION AREDS 2 ORAL) Take 2 capsules by mouth once daily. coenzyme Q10 (COENZYME Q-10) 100 mg cap capsule Take 1 capsule by mouth. cyanocobalamin (VITAMIN B-12) 1,000 mcg tab Take 1 tablet by mouth once daily. lansoprazole (PREVACID) 30 mg capsule Take 1 capsule by mouth two times a day. 1/2 hr before meal. sertraline (ZOLOFT) 100 mg tablet Take 2 tablets by mouth once daily. tamsulosin (FLOMAX) 0.4 mg Take 2 capsules by mouth daily at bedtime. magnesium oxide (MAG-OX) 400 mg (241.3 mg magnesium) tablet Take 1 tablet by mouth once daily. acetaminophen (TYLENOL EXTRA STRENGTH) 500 mg tablet Take 1,000 mg by mouth every 8 hours as needed. No current facility-administered medications for this visit. Review of Systems Objective BP 116/58 (BP Site: Left Arm, BP Position: Sitting, BP Cuff Size: Large Adult) Pulse 64 Resp 16 Wt 92.5 kg (203 lb 14.8 oz) BMI 27.93 kg/m Last 5 Encounter Wt Readings: Date: Wt: 04/10/2025 92.5 kg (203 lb 14.8 oz) 11/20/2024 93 kg (205 lb 0.4 oz) 11/02/2024 93.2 kg (205 lb 7.5 oz) 10/04/2024 95.4 kg (210 lb 5.1 oz) 09/25/2024 95.5 kg (210 lb 8.6 oz) No waist measurement recorded Estimated body mass index is 27.93 kg/m as calculated from the following: Height as of 11/20/24: 182 cm (5' 11.65). Weight as of this encounter: 92.5 kg (203 lb 14.8 oz). Last 5 Encounter BP Readings: Date: BP: 04/10/2025 116/58 11/20/2024 111/70 11/02/2024 100/61 09/25/2024 118/68 07/03/2024 120/62 Physical Exam Vitals reviewed. Constitutional: Appearance: Normal appearance. Eyes: Conjunctiva/sclera: Conjunctivae normal. Cardiovascular: Rate and Rhythm: Normal rate and regular rhythm. Heart sounds: Normal heart sounds. Pulmonary: Effort: Pulmonary effort is normal. Breath sounds: Normal breath sounds. Musculoskeletal: Right lower leg: No edema. Left lower leg: No edema. Skin: General: Skin is warm and dry. Neurological: General: No focal deficit present. Mental Status: He is alert and oriented to person, place, and time. Psychiatric: Attention and Perception: Attention and perception normal. Mood and Affect: Mood and affect normal. Behavior: Behavior normal. Thought Content: Thought content normal. Judgment: Judgment normal. Assessment and Plan # Essential hypertension (I10) - Blood pressure well-controlled with readings in the 100s to 120s, mostly in the 110s. - No reports of lightheadedness or dizziness. - Continue current antihypertensive regimen. # Benign prostatic hyperplasia with nocturia (N40.1) - Experiencing nocturia up to 4 times per night. - Current medication: Flomax 0.4 mg at bedtime. - Increase Flomax to 0.4 mg BID; instructed patient to monitor for any adverse effects and revert to once daily if necessary. - Next urology appointment with Dr. Lyons scheduled for April. 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 - Refill for sertraline sent to pharmacy. # IFG (impaired fasting glucose) (R73.01) - Last glucose level at 118 mg/dL. - Ordered non-fasting labs today; will order fasting labs for next visit. - Continue monitoring glucose levels biannually. # Hypomagnesemia (E83.42) - Last magnesium level within normal range. - Continue magnesium oxide 1 tablet daily; marked as zclr-zjq-iibeagn on medication list. - Ordered magnesium level to be checked with next set of labs. # Vitamin D deficiency (E55.9) - Ordered vitamin D level to be checked with next set of labs. # Mixed hyperlipidemia (E78.2) - Last LDL cholesterol level under 100 mg/dL. - Ordered non-fasting lipid panel today; will order fasting lipid panel for next visit. - Continue current lipid-lowering therapy. # Dementia, unspecified dementia severity, unspecified dementia type, unspecified whether behavioral, psychotic, or mood disturbance or anxiety ([facility]) (F03.90) - Continue Aricept as prescribed. - No new cognitive concerns reported. # Crohn's disease with complication, unspecified gastrointestinal tract location ([facility]) (K50.919) - Condition stable on current medications. - No new gastrointestinal symptoms reported. # Chronic ITP (idiopathic thrombocytopenia) ([facility]) (D69.3) - Platelet counts stable. - Continue current management. # Chronic bronchitis, unspecified chronic bronchitis type ([facility]) (J42) - Recent episode of acute bronchitis with significant cough and dyspnea; resolved without medical intervention. - Lungs clear on auscultation; no wheezing or crackles noted. - Last pulmonary function test in 2021 showed normal spirometry and normal nitric oxide levels. - Continue current inhaler use as needed. - Educated patient on the importance of seeking medical attention if symptoms worsen. # PAF (paroxysmal atrial fibrillation) ([facility]) (I48.0) Stable on current meds. No changes. No symptoms of recurrence on Cardizem and Inderal. # Encounter for long-term current use of medication (Z79.899) - Refilled prescriptions for sertraline, lansoprazole, and Flomax. - Adjusted Flomax dosage to 0.4 mg BID. - Reviewed and updated medication list, including hvmp-pqn-lvyyhoo magnesium oxide. Laila Ramos MD Recording using [employer] software for draft documentation of the visit was discussed with the patient/authorized route service representative; all questions welcomed and answered. Patient/authorized route service representative agreed to proceed documented in this encounter [facility] 04-10-2025 Note HNO ID: [id number] Author: LAILA RAMOS MD Service: ? Author Type: Physician Type: Progress Notes Filed: 04/10/2025 16:03 Note Text: This note was created using [employer]. Subjective Evelia Nails Jr. is a 84 year old male. Patient presents with: 4 month follow-up Evelia is a 84-year-old male with a history of chronic bronchitis, presenting for a 4-month follow-up. Evelia reports a recent episode of bronchitis a few weeks ago, characterized by significant dyspnea, particularly at night, and a substantial increase in his usual cough frequency. He also experienced a sore throat and produced thick mucus. He managed the symptoms at home with increased fluid intake, Tylenol, and one dose of cough medicine, noting that he toughed it out. He did not seek medical attention at the time but considered it due to the severity of his symptoms. He denies using a pulse oximeter at home. He expresses concern about his lung capacity decreasing with age and the potential for future severe episodes. He still has some inhalers left from previous prescriptions. Evelia also reports nocturia, waking 3-4 times per night to urinate, and expresses interest in adjusting his Flomax dosage to improve this. He notes an increase in urine volume since his recent surgery and rehabilitation. He denies excessive caffeine intake, consuming only half a cup of coffee once a week, and has limited his soft drink consumption. He reports a recent cystoscopy in February and has a follow-up appointment with his urologist in April. He mentions a history of holding nearly 700 mL of fluid post-surgery. Evelia denies lightheadedness or dizziness, but reports an equilibrium problem, necessitating caution when turning his body or changing direction quickly to avoid falls. He maintains hydration by keeping water beside him and limiting soft drinks. He takes Tylenol as needed, particularly before bedtime to help relax when feeling stressed. He denies a true allergy to penicillin, stating it was ineffective for him in the past. 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 Take one (1) tablet daily at noon for one week and then stop completely. sucralfate (CARAFATE) 1 gram tablet Take 1 tablet by mouth two times a day. metoprolol tartrate, short acting, 75 mg tab Take 1 tablet by mouth two times a day. CARDIZEM CD 120 mg 24 hr capsule Take 1 capsule by mouth once daily. busPIRone (BUSPAR) 10 mg tablet Take 1 tablet by mouth two times a day. donepezil (ARICEPT) 10 mg tablet Take 1 tablet by mouth daily at bedtime. folic acid 1 mg tablet Take 1 tablet by mouth two times a day. Mesalamine (LIALDA) 1.2 gram EC tablet Take 1 tablet by mouth two times a day. montelukast (SINGULAIR) 10 mg tablet Take 1 tablet by mouth daily at bedtime. meloxicam (MOBIC) 7.5 mg tablet Take 7.5 mg by mouth. finasteride (PROSCAR) 5 mg tablet Take 5 mg by mouth once daily. glucosamine/msm/chondrt/C/hyal (GQOMGYWFERG-LILETCZKXUR-SAV ORAL) Take by mouth. MV with Zoy-Wnitgikk-Lkcrfy (CENTRUM SILVER) 0.4-300-250 mg-mcg-mcg tab Take 1 tablet by mouth once daily. VIT C/E/ZN/COPPR/LUTEIN/ZEAXAN (PRESERVISION AREDS 2 ORAL) Take 2 capsules by mouth once daily. coenzyme Q10 (COENZYME Q-10) 100 mg cap capsule Take 1 capsule by mouth. cyanocobalamin (VITAMIN B-12) 1,000 mcg tab Take 1 tablet by mouth once daily. lansoprazole (PREVACID) 30 mg capsule Take 1 capsule by mouth two times a day. 1/2 hr before meal. sertraline (ZOLOFT) 100 mg tablet Take 2 tablets by mouth once daily. tamsulosin (FLOMAX) 0.4 mg Take 2 capsules by mouth daily at bedtime. magnesium oxide (MAG-OX) 400 mg (241.3 mg magnesium) tablet Take 1 tablet by mouth once daily. acetaminophen (TYLENOL EXTRA STRENGTH) 500 mg tablet Take 1,000 mg by mouth every 8 hours as needed. No current facility-administered medications for this visit. Review of Systems Objective BP 116/58 (BP Site: Left Arm, BP Position: Sitting, BP Cuff Size: Large Adult) Pulse 64 Resp 16 Wt 92.5 kg (203 lb 14.8 oz) BMI 27.93 kg/m? Last 5 Encounter Wt Readings: Date: Wt: 04/10/2025 92.5 kg (203 lb 14.8 oz) 11/20/2024 93 kg (205 lb 0.4 oz) 11/02/2024 93.2 kg (205 lb 7.5 oz) 10/04/2024 95.4 kg (210 lb 5.1 oz) 09/25/2024 95.5 kg (210 lb 8.6 oz) No nneka (more content not included)... [facility] 02-14-2025 Telephone encounter Note This was discontinued with last visit and his metoprolol was increased. Refill not sent. [facility] 02-14-2025 Miscellaneous Notes This was discontinued with last visit and his metoprolol was increased. Refill not sent. Last OV 11/20/24 Next OV 03/23/25 Patient has been identified by name and date of : Yes, Provider richard Date 02/13/2025 Time 3:38 Patient phones for refill(s): Requested Prescriptions Pending Prescriptions Disp Refills propranolol (INDERAL) 40 mg tablet 270 tablet 3 Sig: Take 1 tablet by mouth three times a day. As directed Date of last office visit in primary care: Visit date not found Date of next office visit in primary care: Visit date not found Please advise. Thank you. Kanchan Benjamin. documented in this encounter [facility] 02-13-2025 Telephone encounter Note Last OV 11/20/24 Next OV 03/23/25 [facility] 02-13-2025 Telephone encounter Note Patient has been identified by name and date of : Yes, Provider richard Date 02/13/2025 Time 3:38 Patient phones for refill(s): Requested Prescriptions Pending Prescriptions Disp Refills propranolol (INDERAL) 40 mg tablet 270 tablet 3 Sig: Take 1 tablet by mouth three times a day. As directed Date of last office visit in primary care: Visit date not found Date of next office visit in primary care: Visit date not found Please advise. Thank you. Kanchan Benjamin. [facility] 12-15-2024 Telephone encounter Note The following approved medication requests have been transmitted electronically. Requested Prescriptions Pending Prescriptions Disp Refills sucralfate (CARAFATE) 1 gram tablet 360 tablet 1 Sig: Take 1 tablet by mouth two times a day. Laila Ramos MD [facility] 12-15-2024 Miscellaneous Notes The following approved medication requests have been transmitted electronically. Requested Prescriptions Pending Prescriptions Disp Refills sucralfate (CARAFATE) 1 gram tablet 360 tablet 1 Sig: Take 1 tablet by mouth two times a day. Laila Ramos MD The rx for carafate would be needed. The rx for cardizem was sent at 11/20/24 appt. Message left to pt to contact the pharmacy for that rx to be sent. Prescription Refill Information The patient has been identified by name and date of : Yes Caregiver verified no other encounters exist for this prescription request: Yes Caregiver confirmed with patient/requestor that no other refills are due, in the near future, with this provider at this time: Yes The last office visit in the department: 12-21-23 Does the patient have a future office visit with this provider/department: Yes Requested Prescriptions Pending Prescriptions Disp Refills sucralfate (CARAFATE) 1 gram tablet 360 tablet 1 Sig: Take 1 tablet by mouth two times a day. CARDIZEM CD 120 mg 24 hr capsule 90 capsule 3 Sig: Take 1 capsule by mouth once daily. Carola Moura December 15, 2024 11:39 AM documented in this encounter [facility] 12-15-2024 Telephone encounter Note The rx for carafate would be needed. The rx for cardizem was sent at 11/20/24 appt. Message left to pt to contact the pharmacy for that rx to be sent. [facility] 12-15-2024 Telephone encounter Note Prescription Refill Information The patient has been identified by name and date of : Yes Caregiver verified no other encounters exist for this prescription request: Yes Caregiver confirmed with patient/requestor that no other refills are due, in the near future, with this provider at this time: Yes The last office visit in the department: 12-21-23 Does the patient have a future office visit with this provider/department: Yes Requested Prescriptions Pending Prescriptions Disp Refills sucralfate (CARAFATE) 1 gram tablet 360 tablet 1 Sig: Take 1 tablet by mouth two times a day. CARDIZEM CD 120 mg 24 hr capsule 90 capsule 3 Sig: Take 1 capsule by mouth once daily. Carola Moura December 15, 2024 11:39 AM [facility] 11-20-2024 Instructions Laila Ramos MD - 11/20/2024 11:04 AM EST - Start taking Metoprolol 75 mg twice daily; use up your current supply of 50 mg tablets by taking one and a half tablets per dose. - Continue taking one Propranolol tablet in the middle of the day for one week, then discontinue. - Monitor your blood pressure regularly at home; bring your blood pressure cuff to your next appointment to ensure it matches clinic readings. - Refill Cardizem 120 mg once daily; prescription sent to [facility] with 90-day supply and three refills. - Refill BuSpar, Aricept, Folic Acid, Lialda, Singulair, and Zoloft; prescriptions sent to [facility] with instructions to fill when due. - Follow up with your eye doctor for macular degeneration treatment. - Continue physical therapy exercises to improve balance and mobility. - Maintain a diet rich in iron, folic acid, and B12 to address anemia. - Complete lab tests for vitamin D, magnesium, blood counts, A1c, and comprehensive metabolic panel before your next appointment. - Next appointment is scheduled for March 26. Screening schedule The following prevention plan is recommended: Shingrix Vaccine(1 of 2) Never done RSV Vaccine(1 - 1-dose 75+ series) Never done DTaP,Tdap,Td Vaccine(2 - Tdap) due on 08/22/2018 WHAT YOU CAN DO TO PREVENT FALLS Many falls can be prevented. By making some changes, you can lower your chances of falling. Four things YOU can do to prevent falls for you* and your caregiver 1. Begin a regular exercise program Exercise is one of the most important ways to lower your chances of falling. It makes you stronger and helps you feel better. Exercises that improve balance and coordination (like Pal Chi) are the most helpful. Lack of exercise leads to weakness and increases your chances of falling. Ask your doctor or health care provider about the best type of exercise program for you. 2. Have your health care provider review your medicines Have your doctor or pharmacist review all the medicines you take, even ptor-[id number] medicines. As you get older, the way medicines work in your body can change. Some medicines, or combinations of medicines, can make you sleepy or dizzy and can cause you to fall. 3. Have your vision checked Have your eyes checked by an eye doctor at least once a year. You may be wearing the wrong glasses or have a condition like glaucoma or cataracts that limits your vision. Poor vision can increase your chances of falling. 4. Make your home safer About half of all falls happen at home. To make your home safer: Remove things you can trip over (like papers, books, clothes, and shoes) from stairs and places where you walk. Remove small throw rugs or use double-sided tape to keep the rugs from slipping. Keep items you use often in cabinets you can reach easily without using a step stool. Have grab bars put in next to your toilet and in the tub or shower. Use non-slip mats in the bathtub and on shower floors. Improve the lighting in your home. As you get older, you need brighter lights to see well. Hang light-weight curtains or shades to reduce glare. Have handrails and lights put in on all staircases. Wear shoes both inside and outside the house. Avoid going barefoot or wearing slippers. For more information, contact: Centers for Disease Control and Prevention www.cdc.gov/injury * This information may not apply if you have certain medical conditions. documented in this encounter [facility] 11-20-2024 Note HNO ID: [id number] Author: LAILA RAMOS MD Service: ? Author Type: Physician Type: Progress Notes Filed: 11/20/2024 11:42 Note Text: This note was created using allyDVMriter. Subjective Evelia Nails Jr. is a 84 year old male. Review of Systems Objective BP 111/70 Pulse 69 Resp 16 Ht 182 cm (5' 11.65) Wt 93 kg (205 lb 0.4 oz) SpO2 96% BMI 28.08 kg/m? Physical Exam Vitals reviewed. Constitutional: Appearance: Normal appearance. HENT: Head: Normocephalic. Right Ear: Tympanic membrane, ear canal and external ear normal. Left Ear: Tympanic membrane, ear canal and external ear normal. Mouth/Throat: Mouth: Mucous membranes are moist. Pharynx: Oropharynx is clear. Eyes: Extraocular Movements: Extraocular movements intact. Conjunctiva/sclera: Conjunctivae normal. Neck: Thyroid: No thyromegaly. Vascular: No carotid bruit. Cardiovascular: Rate and Rhythm: Normal rate and regular rhythm. Pulses: Normal pulses. Heart sounds: Normal heart sounds. Pulmonary: Effort: Pulmonary effort is normal. Breath sounds: Normal breath sounds. Abdominal: General: Abdomen is flat. There is no distension. Palpations: Abdomen is soft. There is no mass. Musculoskeletal: Cervical back: Normal range of motion. Right lower leg: No edema. Left lower leg: No edema. Skin: General: Skin is warm and dry. Comments: Scaly patch on left ear Neurological: General: No focal deficit present. Mental Status: He is alert and oriented to person, place, and time. Psychiatric: Attention and Perception: Attention and perception normal. Mood and Affect: Mood and affect normal. Speech: Speech normal. Behavior: Behavior normal. Thought Content: Thought content normal. Cognition and Memory: Cognition normal. Judgment: Judgment normal. Assessment and Plan--See below HISTORY Evelia Nails Jr. is a 84 year old gentleman here for Medicare Annual Wellness Visit, yearly exam and follow up appointment. Evelia Nails is an 84-year-old male with a history of HTN, tremors, macular degeneration, Crohn's disease, depression, and atrial fibrillation, presenting for a Medicare Annual Wellness Visit. Evelia reports stable vision with ongoing eye injections for macular degeneration. He experiences balance issues and equilibrium problems, and has an upcoming appointment for an eye checkup next month. Exercise is currently limited, but he has been engaging in physical therapy to improve upper body strength and range of motion. He reports no need for medication refills at this time. Evelia is currently taking Inderal 40 mg TID and metoprolol 50 mg BID for blood pressure management, with readings consistently around 110/70 mmHg. He notes that propranolol has not significantly helped with tremors and denies any preference for one medication over the other. He is not currently following up with a machinist wood. He also takes Cardizem 120 mg daily, with the current prescription running out soon. Evelia has a history of anemia, with recent labs showing a hemoglobin level of 10.5 g/dL and a hematocrit of 33.7%. He is taking folic acid and vitamin D supplements. He reports that Zoloft has been effective in managing depression, which is currently in remission. He denies any recent episodes of atrial fibrillation. Evelia has a living will but has not yet designated a healthcare power of trademark attorney. He is considering updating his living will and is uncertain about who will be responsible for medical decisions if he is incapacitated. He has a half-brother and a half-sister. 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 CARDIZEM CD 120 mg 24 hr capsule 120 mg. acetaminophen (TYLENOL EXTRA STRENGTH) 500 mg tablet Take 1,000 mg by mouth every 8 hours as needed. magnesium oxide (MAG-OX) 400 mg (241.3 mg magnesium) tablet Take 1 tablet by mouth once daily. tamsulosin (FLOMAX) 0.4 mg Take 1 capsule by mouth daily at bedtime. metoprolol tartrate, short acting, (LOPRESSOR) 50 mg tablet Take 1 tablet by mouth two times a day. lansoprazole (PREVACID) 30 mg capsule Take 1 capsule by mouth two times a day. 1/2 hr before meal. sertraline (ZOLOFT) 100 mg tablet Take 2 tablets by mouth once daily. montelukast (SINGULAIR) 10 mg tablet Take 1 tablet by mouth daily a (more content not included)... [facility] 11-20-2024 History of Present illness Narrative Images from the original note were not included. This note was created using allyDVMriter. Subjective Evelia Nials Jr. is a 84 year old male. Review of Systems Objective BP 111/70 Pulse 69 Resp 16 Ht 182 cm (5' 11.65) Wt 93 kg (205 lb 0.4 oz) SpO2 96% BMI 28.08 kg/m Physical Exam Vitals reviewed. Constitutional: Appearance: Normal appearance. HENT: Head: Normocephalic. Right Ear: Tympanic membrane, ear canal and external ear normal. Left Ear: Tympanic membrane, ear canal and external ear normal. Mouth/Throat: Mouth: Mucous membranes are moist. Pharynx: Oropharynx is clear. Eyes: Extraocular Movements: Extraocular movements intact. Conjunctiva/sclera: Conjunctivae normal. Neck: Thyroid: No thyromegaly. Vascular: No carotid bruit. Cardiovascular: Rate and Rhythm: Normal rate and regular rhythm. Pulses: Normal pulses. Heart sounds: Normal heart sounds. Pulmonary: Effort: Pulmonary effort is normal. Breath sounds: Normal breath sounds. Abdominal: General: Abdomen is flat. There is no distension. Palpations: Abdomen is soft. There is no mass. Musculoskeletal: Cervical back: Normal range of motion. Right lower leg: No edema. Left lower leg: No edema. Skin: General: Skin is warm and dry. Comments: Scaly patch on left ear Neurological: General: No focal deficit present. Mental Status: He is alert and oriented to person, place, and time. Psychiatric: Attention and Perception: Attention and perception normal. Mood and Affect: Mood and affect normal. Speech: Speech normal. Behavior: Behavior normal. Thought Content: Thought content normal. Cognition and Memory: Cognition normal. Judgment: Judgment normal. Assessment and Plan--See below HISTORY Evelia Nails Jr. is a 84 year old gentleman here for Medicare Annual Wellness Visit, yearly exam and follow up appointment. Evelia Nails is an 84-year-old male with a history of HTN, tremors, macular degeneration, Crohn's disease, depression, and atrial fibrillation, presenting for a Medicare Annual Wellness Visit. Evelia reports stable vision with ongoing eye injections for macular degeneration. He experiences balance issues and equilibrium problems, and has an upcoming appointment for an eye checkup next month. Exercise is currently limited, but he has been engaging in physical therapy to improve upper body strength and range of motion. He reports no need for medication refills at this time. Evelia is currently taking Inderal 40 mg TID and metoprolol 50 mg BID for blood pressure management, with readings consistently around 110/70 mmHg. He notes that propranolol has not significantly helped with tremors and denies any preference for one medication over the other. He is not currently following up with a machinist wood. He also takes Cardizem 120 mg daily, with the current prescription running out soon. Evelia has a history of anemia, with recent labs showing a hemoglobin level of 10.5 g/dL and a hematocrit of 33.7%. He is taking folic acid and vitamin D supplements. He reports that Zoloft has been effective in managing depression, which is currently in remission. He denies any recent episodes of atrial fibrillation. Evelia has a living will but has not yet designated a healthcare power of trademark attorney. He is considering updating his living will and is uncertain about who will be responsible for medical decisions if he is incapacitated. He has a half-brother and a half-sister. 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 CARDIZEM CD 120 mg 24 hr capsule 120 mg. acetaminophen (TYLENOL EXTRA STRENGTH) 500 mg tablet Take 1,000 mg by mouth every 8 hours as needed. magnesium oxide (MAG-OX) 400 mg (241.3 mg magnesium) tablet Take 1 tablet by mouth once daily. tamsulosin (FLOMAX) 0.4 mg Take 1 capsule by mouth daily at bedtime. metoprolol tartrate, short acting, (LOPRESSOR) 50 mg tablet Take 1 tablet by mouth two times a day. lansoprazole (PREVACID) 30 mg capsule Take 1 capsule by mouth two times a day. 1/2 hr before meal. sertraline (ZOLOFT) 100 mg tablet Take 2 tablets by mouth once daily. montelukast (SINGULAIR) 10 mg tablet Take 1 tablet by mouth daily at bedtime. busPIRone (BUSPAR) 10 mg tablet Take 1 tablet by mouth two times a day. donepezil (ARICEPT) 10 mg tablet Take 1 tablet by mouth daily at bedtime. Mesalamine (LIALDA) 1.2 gram EC tablet Take 1 tablet by mouth two times a day. propranolol (INDERAL) 40 mg tablet Take 1 tablet by mouth three times a day. As directed folic acid 1 mg tablet Take 1 tablet by mouth two times a day. sucralfate (CARAFATE) 1 gram tablet Take 1 tablet by mouth two times a day. finasteride (PROSCAR) 5 mg tablet Take 5 mg by mouth once daily. glucosamine/msm/chondrt/C/hyal (UPCBSFHMMGA-YBOJYIOFFBT-HMJ ORAL) Take by mouth. MV with Rof-Drvlyhaz-Achfkp (CENTRUM SILVER) 0.4-300-250 mg-mcg-mcg tab Take 1 tablet by mouth once daily. VIT C/E/ZN/COPPR/LUTEIN/ZEAXAN (PRESERVISION AREDS 2 ORAL) Take 2 capsules by mouth once daily. coenzyme Q10 (COENZYME Q-10) 100 mg cap capsule Take 1 capsule by mouth. cyanocobalamin (VITAMIN B-12) 1,000 mcg tab Take 1 tablet by mouth once daily. Acetaminophen 500 mg cap EVERY 8 HOURS (Patient not taking: Reported on 11/20/2024) No current facility-administered medications for this visit. ALLERGIES Allergen Reactions Atorvastatin Contraindication-Medical Surgical myalgia, weakness proximal muscle Penicillins doesn't work FAMILY HISTORY Problem Relation Age of Onset Emphysema Father other (depression [Other]) Mother Heart Mother Hypertension No Family History Coronary Artery Disease No Family History Thyroid No Family History Diabetes No Family History Hyperlipidemia No Family History Blood Disease No Family History Blood Clots No Family History Stroke No Family History DVT No Family History Factor 5 Leiden No Family History Systemic Lupus Erythematosus No Family History Multiple Sclerosis No Family History Bipolar disorder No Family History Schizophrenia No Family History Depression No Family History Dementia No Family History Alzheimer's Disease No Family History Parkinson s Disease No Family History Aneurysm No Family History Social History Tobacco Use Smoking status: Former Current packs/day: 0.00 Types: Cigarettes, Pipe Start date: 11/29/1957 Quit date: 11/29/1962 Years since quittin.0 Smokeless tobacco: Never Tobacco comments: Pt smoked on & off x 5 years, never a heavy smoker Substance Use Topics Alcohol use: Yes Comment: rare stawberry daquiri Drug use: No Evelia Shen Nails Jr. is a 84 year old male here for a Medicare wellness visit. Medicare Health Risk Assessment General Health Good Exercise: Minutes/Day 0 min Exercise: Days/Week 0 days Alcohol: Daily Use Monthly or less Alcohol: Drinks/Day Q2: How many drinks containing alcohol do you have on a typical day when you are drinking?: 1 or 2 (Very rare) Alcohol: 6 or more drinks Never Feel off balance Yes (problems with equilibrium) Concerns: Teeth/Dentures No Concerns: Sexual function No Troubled by feelings None of the above Frequency: Eating healthy diet More than half the days ADLs requiring help None of the above Safety precautions in home/vehicle Yes Smoke, vape, chews tobacco No Difficulty hearing No Difficulty seeing Yes (macular degeneration; getting eye injection and stable now) Current Providers Specialists: I have reviewed specialist-related care of the patient in the medical record. Outside specialists seen: Urology--Dr. Hairston, GI--Dr. Trujillo, Mussel Farmer--Dr. Kimo Boucher, Ophthalmology--Dr. Maria Victoria Sinclair, Retinal specialist--Dr. Zamora Medical/Family history review Reviewed and updated problem list, medical/surgical/family/social history, medications, and allergies. Opioid use review Opioid Medications (last 90 days) No data to display Anxiety/Depression screening PHQ-2 Score: 0 (Lower risk for depression) Recommendation: continuing current treatment plan and medication management Cognitive screening Mini Cog Score: 4 Cognitive screening reviewed and Patient has known cognitive impairment. Functional Observation Was the patient's Timed Up & Go test unsteady or >= 12 seconds? No Advance Care Planning Surrogate decision maker and/or advance care plan documented Will be updating LW; does not have HCDPOA yet. Will drop off copy when updated.Not sure who will be surrogate decision maker. Not older daughter since not reliable. Measurements BP 111/70 Pulse 69 Resp 16 Ht 182 cm (5' 11.65) Wt 93 kg (205 lb 0.4 oz) SpO2 96% BMI 28.08 kg/m Vision Screening: Follows with optometry/ophthalmology Assessment/Plan Medicare annual wellness visit, subsequent () - Counseled on healthy diet and regular exercise - Fall avoidance information provided - Personalized prevention plan provided # Medicare annual wellness visit, subsequent () - Completed Medicare annual wellness visit. - Reviewed and updated family history, including half-siblings. - Discussed alcohol consumption; patient drinks monthly or less, consuming one or two drinks per occasion. - Encouraged balanced diet, adequate hydration, and regular exercise. - Scheduled follow-up appointments in February, June, and October. - Provided printed after-visit summary. # Essential hypertension (I10) - Blood pressure well-controlled at 110/70 mmHg. - Currently taking metoprolol 50 mg BID and propranolol 40 mg TID. - Discontinued propranolol; increased metoprolol to 75 mg BID. - Advised to monitor blood pressure at home and report any hypotensive episodes. - Follow-up to ensure blood pressure remains stable with medication adjustment. # PAF (paroxysmal atrial fibrillation) ([facility]) (I48.0) - No recent episodes of atrial fibrillation reported. - Continue current management with metoprolol and Cardizem 120 mg daily. - Refilled Cardizem prescription with 90-day supply and three refills. # Major depressive disorder with single episode, in full remission ([facility]) (F32.5) - Depression in remission; patient reports minimal depressive symptoms. - Continue Zoloft; refill scheduled for March. # Crohn's disease of both small and large intestine without complication ([facility]) (K50.80) - Condition stable; continue current management with mesalamine and Lialda. - Refilled Lialda prescription. # Encounter for immunization (Z23) - Discussed RSV vaccine; advised to obtain at pharmacy under Medicare D plan. # Vitamin D deficiency (E55.9) - Continue current vitamin D supplementation. - Ordered vitamin D level to be checked with next lab work. # IFG (impaired fasting glucose) (R73.01) - Recent glucose level 101 mg/dL (non-fasting). - Monitor glucose levels; ordered A1c to be checked with next lab work. # Mixed hyperlipidemia (E78.2) - Previous lipid panel in January showed no significant abnormalities. - Deferred lipid panel to next appointment. Laila Ramos MD documented in this encounter [facility] 11-14-2024 Telephone encounter Note Susan with [facility] called to let you know they d/c pt from home care. Pt going to start out outpt Therapy. Chanelle Peguero LPN [facility] 11-14-2024 Miscellaneous Notes Susan with [facility] called to let you know they d/c pt from home care. Pt going to start out outpt Therapy. Chanelle Peguero LPN documented in this encounter [facility] 11-10-2024 Telephone encounter Note Order faxed to [facility] as instructed. [facility] 11-10-2024 Miscellaneous Notes Order faxed to [facility] as instructed. ok Thomas- OT- [facility]- returned call and given provider's message. Thomas reports patient had a left shoulder arthroplasty reverse procedure. Please fax order to [facility]. Called and left a detailed voicemail notifying Thomas KWAN from [facility] of providers message. Clinic phone number was left for him to call and answer providers question. Torri Matute RN OT for what problem? OK, just need diagnosis they wnt to treat Thomas OT from [facility] calls and is requesting an order for outpatient occupational therapy. Thomas requesting order to be faxed to [facility]. Estrellita Ortega RN documented in this encounter [facility] 11-10-2024 Telephone encounter Note ok [facility] 11-10-2024 Telephone encounter Note Thomas- OT- [facility]- returned call and given provider's message. Thomas reports patient had a left shoulder arthroplasty reverse procedure. Please fax order to [facility]. [facility] 11-09-2024 Telephone encounter Note Called and left a detailed voicemail notifying Thomas OT from [facility] of providers message. Clinic phone number was left for him to call and answer providers question. Torri Matute RN [facility] 11-09-2024 Telephone encounter Note OT for what problem? OK, just need diagnosis they wnt to treat [facility] 11-09-2024 Telephone encounter Note Thomas OT from [facility] calls and is requesting an order for outpatient occupational therapy. Thomas requesting order to be faxed to [facility]. Estrellita Ortega RN [facility] 11-06-2024 Telephone encounter Note Does that mean they have not gone out yet? If so, noted. [facility] 11-06-2024 Miscellaneous Notes Does that mean they have not gone out yet? If so, noted. Thomas OT from [facility] calls and states that OT has been having issues going out to see patient for OT evaluation. OT is going to evaluate patient today. Call if there is any questions. Estrellita Ortega RN documented in this encounter [facility] 11-06-2024 Telephone encounter Note Thomas OT from [facility] calls and states that OT has been having issues going out to see patient for OT evaluation. OT is going to evaluate patient today. Call if there is any questions. Estrellita Ortega RN [facility] 11-03-2024 Telephone encounter Note Left providers message on secure voicemail and ask to call office and ask to speak to a nurse with any questions or concerns [facility] 11-03-2024 Miscellaneous Notes Left providers message on secure voicemail and ask to call office and ask to speak to a nurse with any questions or concerns OK Joan with [facility], PT calling to let you know they received orders for PT. Pt had left total shoulder arthoplasty done. Dr. Francisco will follow for ortho and they are checking to see if you will follow for medical. Please advise Joan back with verbal order. Chanelle Peguero LPN documented in this encounter [facility] 11-03-2024 Telephone encounter Note OK [facility] 11-03-2024 Telephone encounter Note Joan with [facility], PT calling to let you know they received orders for PT. Pt had left total shoulder arthoplasty done. Dr. Francisco will follow for ortho and they are checking to see if you will follow for medical. Please advise Joan back with verbal order. Chanelle Peguero LPN [facility] 11-02-2024 Telephone encounter Note Em did have for appt. [facility] 11-02-2024 Miscellaneous Notes Em did have for appt. Noted--make sure available for the appointment with Em Sulema from [facility] calling she will be faxing a medication list to the office of the medications patient was taking at [facility]. computer shows patient has discharge follow up appt scheduled for with Em Romero NP. documented in this encounter [facility] 11-02-2024 History of Present illness Narrative SUBJECTIVE: Shingrix Vaccine(1 of 2) Never done RSV Vaccine(1 - 1-dose 75+ series) Never done DTaP,Tdap,Td Vaccine(2 - Tdap) due on 08/22/2018 HPI Evelia Nails Jr. is a 83 year old male. 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 Benign Prostatic Hyperplasia With Lower Urinary Tract Symptoms Bladder Neck Obstruction Impotence of Organic Origin DIVERTICULOSIS COLON - NO HEMORRHAGE Localized Osteoarthrosis, Lower Leg Pure Hypercholesterolemia Essential Hypertension Other Testicular Hypofunction Essential Tremor Retention of Urine, Unspecified Urethral Stricture Unspecified Dizziness Metabolic Syndrome Ibs (Irritable Bowel Syndrome) Paf (Paroxysmal Atrial Fibrillation) (Hcc) Trochanteric Bursitis Sciatica Arthritis of Knee 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 Chronic Nasal Congestion S/P Tkr (Total Knee Replacement) Rebekah Type 4 Hyperlipoproteinemia Macular Degeneration Chronic Urticaria Dysthymia Chronic Nonintractable Headache Anxiety Moderate Persistent Asthma Without Complication Non-Seasonal Allergic Rhinitis Chronic Midline Low Back Pain With Left-Sided Sciatica Ddd (Degenerative Disc Disease), Lumbar Mild Depression Chronic Bronchitis (Hcc) Esophageal Dysphagia Major Depressive Disorder, Single Episode, Mild (Hcc) Hypomagnesemia Ifg (Impaired Fasting Glucose) Mixed Hyperlipidemia Vitamin D Deficiency Presents today for routine follow-up visit. He is status post left shoulderReplacement surgery Dr. Kathie Liu orthopedics. He has a follow-up appointment with the surgeon later today. He notes he has remained in a sling since surgery. Has home health care coming out from [place], expects first visit on Wednesday. He reports resuming usual diet. He notes urinary retention immediately following surgery now resolved. He noted some constipation initially after surgery, treated with constipation remedies then proceeded to have diarrhea. Now having 1 BM daily. Notes does not look like his usual but no longer having diarrhea. HTN: Without report of headache, chest pain, palpitations, dyspnea, peripheral edema, orthopnea, fatigue, and PND. Last 14 Encounter BP Readings: Date: BP: 11/02/2024 100/61 09/25/2024 118/68 07/03/2024 120/62 06/15/2024 126/72 02/17/2024 112/66 11/05/2023 104/60 07/12/2023 116/70 03/01/2023 110/62 01/22/2023 118/68 11/02/2022 108/62 07/03/2022 108/62 06/30/2022 112/64 06/22/2022 112/66 01/27/2022 110/62 Hyperlipidemia. Doing well on current therapy . His most recent lipid panels are: Cholesterol, Total (mg/dL) Date Value 02/18/2024 148 10/29/2023 175 07/08/2020 158 09/05/2019 179 Total Cholesterol, Nonfasting (mg/dL) Date Value 05/22/2021 161 HDL Cholesterol (mg/dL) Date Value 02/18/2024 28 10/29/2023 35 07/08/2020 36 09/05/2019 30 HDL Cholesterol, Nonfasting (mg/dL) Date Value 05/22/2021 36 LDL Cholesterol (mg/dL) Date Value 02/18/2024 92 10/29/2023 109 07/08/2020 93 09/05/2019 100 LDL Cholesterol, Nonfasting (mg/dL) Date Value 05/22/2021 91 Triglyceride (mg/dL) Date Value 02/18/2024 139 10/29/2023 157 07/08/2020 145 09/05/2019 244 Triglycerides, Nonfasting (mg/dL) Date Value 05/22/2021 171 Crohns: reports currently stable, controlled. Review of Systems Constitutional: Negative. Gastrointestinal: Negative. Musculoskeletal: Positive for arthralgias. Neurological: Positive for tremors. Objective BP 100/61 Pulse 66 Resp 16 Wt 93.2 kg (205 lb 7.5 oz) BMI 28.46 kg/m Physical Exam Vitals and nursing note reviewed. Constitutional: Appearance: Normal appearance. HENT: Head: Normocephalic and atraumatic. Eyes: Conjunctiva/sclera: Conjunctivae normal. Cardiovascular: Rate and Rhythm: Normal rate and regular rhythm. Pulses: Carotid pulses are 2+ on the right side and 2+ on the left side. Radial pulses are 2+ on the right side and 2+ on the left side. Heart sounds: Normal heart sounds. Pulmonary: Effort: Pulmonary effort is normal. Breath sounds: Normal breath sounds. Abdominal: General: Bowel sounds are normal. Palpations: Abdomen is soft. Musculoskeletal: Left shoulder: Decreased range of motion. Right hand: No swelling. Normal pulse. Left hand: No swelling. Normal pulse. Comments: In sling s/p left shoulder replacement surgery Skin: General: Skin is warm and dry. Neurological: General: No focal deficit present. Mental Status: He is alert and oriented to person, place, and time. ALLERGIES Allergen Reactions Atorvastatin Contraindication-Medical Surgical myalgia, weakness proximal muscle Penicillins doesn't work Medications meloxicam (MOBIC) 7.5 mg tablet Take 7.5 mg by mouth. Acetaminophen 500 mg cap EVERY 8 HOURS CARDIZEM CD 120 mg 24 hr capsule 120 mg. acetaminophen (TYLENOL EXTRA STRENGTH) 500 mg tablet Take 1,000 mg by mouth every 8 hours as needed. magnesium oxide (MAG-OX) 400 mg (241.3 mg magnesium) tablet Take 1 tablet by mouth once daily. tamsulosin (FLOMAX) 0.4 mg Take 1 capsule by mouth daily at bedtime. metoprolol tartrate, short acting, (LOPRESSOR) 50 mg tablet Take 1 tablet by mouth two times a day. lansoprazole (PREVACID) 30 mg capsule Take 1 capsule by mouth two times a day. 1/2 hr before meal. sertraline (ZOLOFT) 100 mg tablet Take 2 tablets by mouth once daily. montelukast (SINGULAIR) 10 mg tablet Take 1 tablet by mouth daily at bedtime. busPIRone (BUSPAR) 10 mg tablet Take 1 tablet by mouth two times a day. donepezil (ARICEPT) 10 mg tablet Take 1 tablet by mouth daily at bedtime. Mesalamine (LIALDA) 1.2 gram EC tablet Take 1 tablet by mouth two times a day. propranolol (INDERAL) 40 mg tablet Take 1 tablet by mouth three times a day. As directed folic acid 1 mg tablet Take 1 tablet by mouth two times a day. sucralfate (CARAFATE) 1 gram tablet Take 1 tablet by mouth two times a day. finasteride (PROSCAR) 5 mg tablet Take 5 mg by mouth once daily. glucosamine/msm/chondrt/C/hyal (FEPRCHFZVAU-GWHDXOSKXSO-ZSQ ORAL) Take by mouth. MV with Jvn-Eakhtpqx-Xoxlor (CENTRUM SILVER) 0.4-300-250 mg-mcg-mcg tab Take 1 tablet by mouth once daily. VIT C/E/ZN/COPPR/LUTEIN/ZEAXAN (PRESERVISION AREDS 2 ORAL) Take 2 capsules by mouth once daily. coenzyme Q10 (COENZYME Q-10) 100 mg cap capsule Take 1 capsule by mouth. cyanocobalamin (VITAMIN B-12) 1,000 mcg tab Take 1 tablet by mouth once daily. 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 Chronic rhinitis Diarrhea 07/16/2005 Essential and other specified forms of tremor not Parkinson's Essential hypertension, benign 07/16/2005 Hemorrhage of gastrointestinal tract, unspecified 07/16/2005 Hemorrhage of gastrointestinal tract, unspecified Inguinal hernia without mention of obstruction or gangrene, unilateral or unspecified, (not specified as recurrent) 07/16/2005 Irritable bowel syndrome 07/16/2005 Regional enteritis of unspecified site 07/16/2005 crohn's PAST SURGICAL HISTORY Procedure Laterality Date COLONOSCOPY FLX DX W/COLLJ SPEC WHEN PFRMD 11/18/07 Diverticulosis CORRECT BUNION,SIMPLE Bunion, right ESOPHAGOGASTRODUODENOSCOPY TRANSORAL DIAGNOSTIC 06/28/2003 EGD LAPAROSCOPY SURG CHOLECYSTECTOMY Cholecystectomy, lap PAST SURGICAL HISTORY OF heart cath PAST SURGICAL HISTORY OF 11/14/2004 colonoscopy x 3 RPR UMBILICAL HERNIA < 5 YRS REDUCIBLE Hernia repair, umbilical SEPTOPLASTY/SUBMUCOUS RESECJ W/WO CARTILAGE GRF 04/01 Septoplasty Social History Tobacco Use Smoking status: Former Current packs/day: 0.00 Types: Cigarettes, Pipe Start date: 11/29/1957 Quit date: 11/29/1962 Years since quittin.9 Smokeless tobacco: Never Tobacco comments: Pt smoked on & off x 5 years, never a heavy smoker Substance Use Topics Alcohol use: Yes Comment: rare stawberry daquiri Drug use: No Latest Ref Rng 10/29/2023 Protein, Total 6.3 - 8.0 g/dL 6.9 Albumin 3.9 - 4.9 g/dL 4.3 Calcium 8.5 - 10.2 mg/dL 9.7 Bilirubin, Total 0.2 - 1.3 mg/dL 0.6 Alkaline Phosphatase 38 - 113 U/L 101 AST 14 - 40 U/L 22 ALT 10 - 54 U/L 15 Glucose 74 - 99 mg/dL 101 (H) BUN 9 - 24 mg/dL 22 Creatinine 0.73 - 1.22 mg/dL 1.22 Sodium 136 - 144 mmol/L 140 Potassium 3.7 - 5.1 mmol/L 4.7 Chloride 97 - 105 mmol/L 103 CO2 22 - 30 mmol/L 26 Anion Gap 9 - 18 mmol/L 11 eGFR >=60 mL/min/1.73m 59 (L) WBC 3.70 - 11.00 k/uL 7.47 RBC 4.20 - 6.00 m/uL 4.94 Hemoglobin 13.0 - 17.0 g/dL 13.6 Hematocrit 39.0 - 51.0 % 43.0 MCV 80.0 - 100.0 fL 87.0 MCH 26.0 - 34.0 pg 27.5 MCHC 30.5 - 36.0 g/dL 31.6 RDW-CV 11.5 - 15.0 % 15.4 (H) Platelet Count 150 - 400 k/uL 142 (L) MPV 9.0 - 12.7 fL 11.2 Absolute nRBC <0.01 k/uL <0.01 Cholesterol, Total <200 mg/dL 175 Triglyceride <150 mg/dL 157 (H) HDL Cholesterol >39 mg/dL 35 (L) Non HDL Cholesterol <130 mg/dL 140 (H) Fasting Time hrs 12 VLDL Cholesterol <30 mg/dL 31 (H) TC:HDL Ratio <5.10 5.00 LDL Cholesterol <100 mg/dL 109 (H) LDL:HDL Ratio <2.54 3.11 (H) Hemoglobin A1C 4.3 - 5.6 % 5.4 Estimated Average Glucose mg/dL 108 Magnesium 1.7 - 2.3 mg/dL 2.2 Uric Acid 4.0 - 8.1 mg/dL 4.3 Vitamin D 25 Hydroxy 31.0 - 80.0 ng/mL 39.9 ASSESSMENT/PLAN: 1. Essential hypertension - ICD9: 401.9, ICD10: I10 (primary diagnosis) controlled - Continue current medications - Encouraged sodium restriction, DASH or Mediterranean diet - Recommend regular aerobic exercise - COMPREHENSIVE METABOLIC PANEL - COMPLETE BLOOD COUNT AND DIFFERENTIAL - LIPID PANEL BASIC 2. Arthritis of left shoulder region - ICD9: 716.91, ICD10: M19.012 3. S/P shoulder replacement, left - ICD9: V43.61, ICD10: Z96.[address] [facility], appt today Recovery complicated by acute urinary retention and constipation following surgery, now resolved Justin [facility]+/-[facility] - COMPREHENSIVE METABOLIC PANEL - COMPLETE BLOOD COUNT AND DIFFERENTIAL 4. Crohn's disease of both small and large intestine without complication (HCC) - ICD9: 555.2, ICD10: K50.80 - COMPREHENSIVE METABOLIC PANEL - COMPLETE BLOOD COUNT AND DIFFERENTIAL 5. Pure hypercholesterolemia - ICD9: 272.0, ICD10: E78.00 Recommend a plant based diet such as Mediterranean diet with plenty of vegetables, fruits,whole grains, fish, chicken, turkey or plant proteins and routine exercise such as walking Continue present management for now 6. Chronic ITP (idiopathic thrombocytopenia) (HCC) - ICD9: 287.31, ICD10: D69.3 - COMPLETE BLOOD COUNT AND DIFFERENTIAL 7. Vitamin D deficiency - ICD9: 268.9, ICD10: E55.9 - VITAMIN D 25 HYDROXY Labs at or efore next visit Keep later this month follow-up visit with PCP. Em Romero APRN.MEDICAL RECORDS SUPERVISOR Medical Decision Making: Problems: Low: Acute, uncomplicated illness or injury Moderate: 2+ stable chronic illnesses Data: Unique source(s) for external note(s) reviewed: 1 Risk: Moderate: Drug management Medical Decision Making Level: 4 - Moderate documented in this encounter [facility] 11-02-2024 Note HNO ID: [id number] Author: EM ROMERO APRN.MEDICAL RECORDS SUPERVISOR Service: ? Author Type: Nurse Specialist Type: Progress Notes Filed: 11/02/2024 09:45 Note Text: SUBJECTIVE: Shingrix Vaccine(1 of 2) Never done RSV Vaccine(1 - 1-dose 75+ series) Never done DTaP,Tdap,Td Vaccine(2 - Tdap) due on 08/22/2018 HPI Evelia Nails Zaire is a 83 year old male. 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 Benign Prostatic Hyperplasia With Lower Urinary Tract Symptoms Bladder Neck Obstruction Impotence of Organic Origin DIVERTICULOSIS COLON - NO HEMORRHAGE Localized Osteoarthrosis, Lower Leg Pure Hypercholesterolemia Essential Hypertension Other Testicular Hypofunction Essential Tremor Retention of Urine, Unspecified Urethral Stricture Unspecified Dizziness Metabolic Syndrome Ibs (Irritable Bowel Syndrome) Paf (Paroxysmal Atrial Fibrillation) (Hcc) Trochanteric Bursitis Sciatica Arthritis of Knee 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 Chronic Nasal Congestion S/P Tkr (Total Knee Replacement) Rebekah Type 4 Hyperlipoproteinemia Macular Degeneration Chronic Urticaria Dysthymia Chronic Nonintractable Headache Anxiety Moderate Persistent Asthma Without Complication Non-Seasonal Allergic Rhinitis Chronic Midline Low Back Pain With Left-Sided Sciatica Ddd (Degenerative Disc Disease), Lumbar Mild Depression Chronic Bronchitis (Hcc) Esophageal Dysphagia Major Depressive Disorder, Single Episode, Mild (Hcc) Hypomagnesemia Ifg (Impaired Fasting Glucose) Mixed Hyperlipidemia Vitamin D Deficiency Presents today for routine follow-up visit. He is status post left shoulderReplacement surgery Dr. Kathie Liu orthopedics. He has a follow-up appointment with the surgeon later today. He notes he has remained in a sling since surgery. Has home health care coming out from [place], expects first visit on Wednesday. He reports resuming usual diet. He notes urinary retention immediately following surgery now resolved. He noted some constipation initially after surgery, treated with constipation remedies then proceeded to have diarrhea. Now having 1 BM daily. Notes does not look like his usual but no longer having diarrhea. HTN: Without report of headache, chest pain, palpitations, dyspnea, peripheral edema, orthopnea, fatigue, and PND. Last 14 Encounter BP Readings: Date: BP: 11/02/2024 100/61 09/25/2024 118/68 07/03/2024 120/62 06/15/2024 126/72 02/17/2024 112/66 11/05/2023 104/60 07/12/2023 116/70 03/01/2023 110/62 01/22/2023 118/68 11/02/2022 108/62 07/03/2022 108/62 06/30/2022 112/64 06/22/2022 112/66 01/27/2022 110/62 Hyperlipidemia. Doing well on current therapy . His most recent lipid panels are: Cholesterol, Total (mg/dL) Date Value 02/18/2024 148 10/29/2023 175 07/08/2020 158 09/05/2019 179 Total Cholesterol, Nonfasting (mg/dL) Date Value 05/22/2021 161 HDL Cholesterol (mg/dL) Date Value 02/18/2024 28 10/29/2023 35 07/08/2020 36 09/05/2019 30 HDL Cholesterol, Nonfasting (mg/dL) Date Value 05/22/2021 36 LDL Cholesterol (mg/dL) Date Value 02/18/2024 92 10/29/2023 109 07/08/2020 93 09/05/2019 100 LDL Cholesterol, Nonfasting (mg/dL) Date Value 05/22/2021 91 Triglyceride (mg/dL) Date Value 02/18/2024 139 10/29/2023 157 07/08/2020 145 09/05/2019 244 Triglycerides, Nonfasting (mg/dL) Date Value 05/22/2021 171 Crohns: reports currently stable, controlled. Review of Systems Constitutional: Negative. Gastrointestinal: Negative. Musculoskeletal: Positive for arthralgias. Neurological: Positive for tremors. Objective BP 100/61 Pulse 66 Resp 16 Wt 93.2 kg (205 lb 7.5 oz) BMI 28.46 kg/m? Physical Exam Vitals and nursing note reviewed. Constitutional: Appearance: Normal appearance. HENT: Head: Normocephalic and atraumatic. Eyes: Conjunctiva/sclera: Conjunctivae normal. Cardiovascular: Rate and Rhythm: Normal rate and regular rhythm. Pulses: Carotid pulses are 2+ on the right side and 2+ on the left side. Radial pulses are 2+ on the right side and 2+ on the left side. Heart sounds: Normal heart sounds. Pulmonary: Effort: Pulmonary effort is normal. Breath sounds: Normal breath sounds. Abdominal: General: Bowel sounds are normal. Palpations: Abdomen is soft. Musculoskeletal: Left shoulder: Decreased range of motion. Right hand: No swelling. Normal pulse. Left hand: No swelling. Normal pulse. Comments: In sling s/p left shoulder replacement surgery Skin: General: Skin is warm and dry. Neurological: General: No focal deficit present. (more content not included)... [facility] 11-01-2024 Telephone encounter Note Noted--make sure available for the appointment with Em [facility] 10-31-2024 Telephone encounter Note Sulema from [facility] calling she will be faxing a medication list to the office of the medications patient was taking at [facility]. computer shows patient has discharge follow up appt scheduled for with Em Romero [employer]PER[employer]OR [employer]. [facility] 10-28-2024 Nurse Progress note Nursing GG Entered On: 10/28/2024 11:48 EST Performed On: 10/28/2024 11:48 EST by Ramakrishna Erazo RN Nursing GG's OT GG Grid Eating : Independent Oral Hygiene : Independent Toilet Hygiene : Independent Toilet Transfer : Independent Ramakrishna Erazo RN - 10/28/2024 11:48 EST Digitally Signed by Ramakrishna Erazo RN on 10/28/2024 11:48 AM [facility] 10-28-2024 Note Discharge Instructions Thank you for allowing [facility] to assist you with your healthcare needs. The following is important discharge information regarding your hospital visit. Your Care Team LAILA RAMOS MD Your Diagnosis Arthritis BPH with obstruction/lower urinary tract symptoms HTN (hypertension) S/p reverse total shoulder arthroplasty What to do next Follow Up Appointments Follow Up with TYLER HAIRSTON MD, Urology Service Where:[address] [facility] [address] [place] [address] [phone] Additional Information: Urology, Left a voicemail with the nurse line, please schedule this follow up appointment - Follow Up with LAILA RAMOS MD When:11/02/2024 09:00 AM EST Where:[address] [place] [address]- Additional Information: PCP - Please take discharge paperwork with you to your appointment - Follow Up with NACHO ROSE, Orthopedic When:11/02/2024 10:15 AM EST Where:[address] [facility] [address] [facility], [place] [address]- Additional Information: Ortho - The Following Activity and Diet Have Been Ordered for You Discharge Activity - Ordered -- As instructed by therapy, Shower with assistance; Apply anti-embolism stockings on AM/off PM daily, this will help promote circulation; Incentive spirometer 10x every 2hr while awake, be sure to take deeps breaths -, 10/28/24 10:06:00 EST Discharge Activity - Ordered -- Non-Weight Bearing Activity Only, LEFT ARM WITH SLING ON AT ALL TIMES; Ok for elbow ROM and pendulums -, 10/28/24 10:06:00 EST Discharge Driving Restrictions - Ordered -- No driving permitted, and must be cleared by a physician -, 10/28/24 10:06:00 EST Discharge Diet - Ordered -- Type of Diet: Regular, 10/28/24 10:06:00 EST The Following Equipment Has Been Ordered for You No qualifying data available. The Following Treatments Have Been Ordered for You Discharge Labs No qualifying data available. Discharge Radiology No qualifying data available. Other Therapies No qualifying data available. Post Acute Orders Discharge Skin Breakdown Prevention - Ordered -- When to Check Skin: Every two hours, Elevate your heels while in bed, turn and reposition yourself while in bed, redistribute your weight while sitting; Report any skin changes you notice. Discharge Weight Order - Ordered -- When to Weigh: Wednesday, Weekly weight to monitor for weight loss - Someone Will Contact You Regarding These Home Health Referrals Consult Home Health - Aide - Ordered -- 10/28/24 10:06:00 EST, Aide Reason: Bathing assistance Consult Home Health - OT - Ordered -- 10/28/24 10:06:00 EST, Home Therapy Order: OT Eval & Treat, Home Therapy Instruction: Full weight bearing, Reason: ADL assistance Consult Home Health - PT - Ordered -- 10/28/24 10:06:00 EST, Home Therapy Order: PT Eval & Treat, Reason: Post total shoulder, Home Therapy Instruction: Full weight bearing Consult Home Health - RN - Ordered -- 10/28/24 10:06:00 EST, Reason: Disease management Medication management, Provided by [facility] [phone]. Allergies Inderal Singulair atorvastatin penicillins Medications Please ask your primary doctor or pharmacist before taking any other medication not listed, including over the counter drugs, herbal medications, vitamins and or supplements as they may interact with your home medications. What How Much When Instructions Last Dose New cyanocobalamin (Vitamin B12 500 mcg oral tablet) 2 tab(s) by mouth Once a day Pickup at [facility]/pharmacy #[id number] New dilTIAZem (Cardizem CD 120 mg/ 24 hours oral capsule, extended release) 1 cap by mouth Once a day (in the morning) Pickup at [facility]/pharmacy #[id number] New polyethylene glycol 3350 by mouth Once a day Changed tamsulosin (tamsulosin 0.4 mg oral capsule) 2 cap by mouth Once a day (in the evening) Pickup at [facility]/pharmacy #3321 Unchanged acetaminophen (acetaminophen 500 mg oral tablet) 2 tab(s) by mouth Every 8 hours Unchanged albuterol (Ventolin HFA MDI (90 mcg/ inh) inhalation aerosol) 2 puff(s) by inhalation Every 4 hours as needed for as needed for shortness of breath or wheezing Unchanged ascorbic acid/ chondroitin/ glucosa/ erica (Glucosamine Chondroitin) 900 Milligram by mouth Once a day Unchanged aspirin (aspirin 81 mg oral delayed release tablet) 1 tab(s) by mouth Two (2) times a day Duration: 14 Days Unchanged aspirin (aspirin 81 mg oral delayed release tablet) 1 tab(s) by mouth Once a day Duration: 30 Days Unchanged aspirin (aspirin 81 mg oral delayed release tablet) 1 tab(s) by mouth Two (2) times a day Duration: 8 Days Unchanged busPIRone (busPIRone 10 mg oral tablet) 1 tab(s) by mouth Two (2) times a day Unchanged docusate-senna (docusate-senna 50 mg-8.6 mg oral tablet) 2 tab(s) by mouth Two (2) times a day Unchanged donepezil (donepezil 10 mg oral tablet) 1 tab(s) by mouth Daily at bedtime Unchanged finasteride (finasteride 5 mg oral tablet) 1 tab(s) by mouth Once a day Unchanged folic acid (folic acid 1 mg oral tablet) 1 tab(s) by mouth Twice daily with meals Unchanged lansoprazole (lansoprazole 30 mg oral delayed release capsule) 1 cap by mouth Two (2) times a day Unchanged lisinopril (lisinopril 5 mg oral tablet) 1 tab(s) by mouth Every day Unchanged magnesium oxide (magnesium oxide 400 mg oral tablet) 1 tab(s) by mouth Two (2) times a day Unchanged meloxicam (meloxicam 7.5 mg oral tablet) 1 tab(s) by mouth Two (2) times a day Unchanged mesalamine (mesalamine 1.2 g oral delayed release tablet) 2 tab(s) by mouth Once a day Unchanged metoprolol (metoprolol tartrate 50 mg oral tablet) 1 tab(s) by mouth Two (2) times a day Unchanged Misc Medication hfwdfzjd-nwx-HL-lycopen-lutein 1 tab by mouth Every day Unchanged Misc Medication diltiazem HCL 120 mg/24 hr by mouth Once a day (in the morning) Unchanged Misc Medication Vitamins A,C, P-kpex-ccymwk ER 1 tablet by mouth Every day Unchanged Misc Medication cyanocobalamin 1000 mcg/ml drops - 1000 mcg by mouth Every day Unchanged montelukast (montelukast 10 mg oral tablet) 1 tab(s) by mouth Once a day (in the evening) Unchanged oxyCODONE (oxyCODONE 5 mg oral tablet ( IMMEDIATE release )) 1-2 tabs by mouth Every 4 hours as needed for for pain Duration: 7 Days for pain 4- Unchanged primidone (primidone 250 mg oral tablet) 1 tab(s) by mouth Two (2) times a day Unchanged propranolol (propranolol 40 mg oral tablet) 1 tab(s) by mouth Three (3) times a day Unchanged senna (Senna 8.6 mg oral tablet) 1 tab(s) by mouth Once a day as needed for as needed for constipation Unchanged sertraline (sertraline 100 mg oral tablet) 2 tab(s) by mouth Once a day Unchanged sucralfate (sucralfate 1 g oral tablet) 1 tab(s) by mouth Two (2) times a day Unchanged ubiquinone (Coenzyme Q10) 100 Milligram by mouth Once a day Pharmacy Information [facility]/pharmacy #[id number]: [id number], [place] [id number] [phone] Please take this list to your next doctor s visit. Bring all medications you take, including over the counter medications, herbals and other supplements with you to your doctor s visit. Patients and families are reminded to discard old lists and to update any records with all medication providers or retail pharmacies. Education Materials Fall Prevention in the Home, Adult Falls can cause injuries. They can happen to people of all ages. There are many things you can do to make your home safe and to help prevent falls. Ask for help when making these changes, if needed. What actions can I take to prevent falls? General Instructions Use good lighting in all rooms. Replace any light bulbs that burn out. Turn on the lights when you go into a dark area. Use night-lights. Keep items that you use often in pzbr-gz-jjgqn places. Lower the shelves around your home if necessary. Set up your furniture so you have a clear path. Avoid moving your furniture around. Do not have throw rugs and other things on the floor that can make you trip. Avoid walking on wet floors. If any of your floors are uneven, fix them. Add color or contrast paint or tape to clearly bev and help you see: ? Any grab bars or handrails. ? First and last steps of stairways. ? Where the edge of each step is. If you use a stepladder: ? Make sure that it is fully opened. Do not climb a closed stepladder. ? Make sure that both sides of the stepladder are locked into place. ? Ask someone to hold the stepladder for you while you use it. If there are any pets around you, be aware of where they are. What can I do in the bathroom? Keep the floor dry. Clean up any water that spills onto the floor as soon as it happens. Remove soap buildup in the tub or shower regularly. Use non-skid mats or decals on the floor of the tub or shower. Attach bath mats securely with double-sided, non-slip rug tape. If you need to sit down in the shower, use a plastic, non-slip stool. Install grab bars by the toilet and in the tub and shower. Do not use towel bars as grab bars. What can I do in the bedroom? Make sure that you have a light by your bed that is easy to reach. Do not use any sheets or blankets that are too big for your bed. They should not hang down onto the floor. Have a firm chair that has side arms. You can use this for support while you get dressed. What can I do in the kitchen? Clean up any spills right away. If you need to reach something above you, use a strong step stool that has a grab bar. Keep electrical cords out of the way. Do not use floor congolese or wax that makes floors slippery. If you must use wax, use non-skid floor wax. What can I do with my stairs? Do not leave any items on the stairs. Make sure that you have a light switch at the top of the stairs and the bottom of the stairs. If you do not have them, ask someone to add them for you. Make sure that there are handrails on both sides of the stairs, and use them. Fix handrails that are broken or loose. Make sure that handrails are as long as the stairways. Install non-slip stair treads on all stairs in your home. Avoid having throw rugs at the top or bottom of the stairs. If you do have throw rugs, attach them to the floor with carpet tape. Choose a carpet that does not hide the edge of the steps on the stairway. Check any carpeting to make sure that it is firmly attached to the stairs. Fix any carpet that is loose or worn. What can I do on the outside of my home? Use bright outdoor lighting. Regularly fix the edges of walkways and driveways and fix any cracks. Remove anything that might make you trip as you walk through a door, such as a raised step or threshold. Trim any bushes or trees on the path to your home. Regularly check to see if handrails are loose or broken. Make sure that both sides of any steps have handrails. Install guardrails along the edges of any raised decks and porches. Clear walking paths of anything that might make someone trip, such as tools or rocks. Have any leaves, snow, or ice cleared regularly. Use sand or salt on walking paths during winter. Clean up any spills in your garage right away. This includes grease or oil spills. What other actions can I take? Wear shoes that: ? Have a low heel. Do not wear high heels. ? Have rubber bottoms. ? Are comfortable and fit you well. ? Are closed at the toe. Do not wear open-toe sandals. Use tools that help you move around (mobility aids) if they are needed. These include: ? Canes. ? Walkers. ? Scooters. ? Crutches. Review your medicines with your doctor. Some medicines can make you feel dizzy. This can increase your chance of falling. Ask your doctor what other things you can do to help prevent falls. Where to find more information Centers for Disease Control and PreventionJAMIE: https://cdc.gov National [place] on Aging: https://eb3qgcj.asher.nih.gov Contact a doctor if: You are afraid of falling at home. You feel weak, drowsy, or dizzy at home. You fall at home. Summary There are many simple things that you can do to make your home safe and to help prevent falls. Ways to make your home safe include removing tripping hazards and installing grab bars in the bathroom. Ask for help when making these changes in your home. This information is not intended to replace advice given to you by your health care provider. Make sure you discuss any questions you have with your health care provider. Document Released: 09/11/2010 Document Revised: 03/07/2020 Document Reviewed: 06/30/2018 [employer] Patient Education 2020 [employer] Arthritis Arthritis means joint pain. It can also mean joint disease. A joint is a place where bones come together. There are more than 100 types of arthritis. What are the causes? This condition may be caused by: Wear and tear of a joint. This is the most common cause. A lot of acid in the blood, which leads to pain in the joint (gout). Pain and swelling (inflammation) in a joint. Infection of a joint. Injuries in the joint. A reaction to medicines (allergy). In some cases, the cause may not be known. What are the signs or symptoms? Symptoms of this condition include: Redness at a joint. Swelling at a joint. Stiffness at a joint. Warmth coming from the joint. A fever. A feeling of being sick. How is this treated? This condition may be treated with: Treating the cause, if it is known. Rest. Raising (elevating) the joint. Putting cold or hot packs on the joint. Medicines to treat symptoms and reduce pain and swelling. Shots of medicines (cortisone) into the joint. You may also be told to make changes in your life, such as doing exercises and losing weight. Follow these instructions at home: Medicines Take ovml-jae-iiorvoh and prescription medicines only as told by your doctor. Do not take aspirin for pain if your doctor says that you may have gout. Activity Rest your joint if your doctor tells you to. Avoid activities that make the pain worse. Exercise your joint regularly as told by your doctor. Try doing exercises like: ? Swimming. ? Water aerobics. ? Biking. ? Walking. Managing pain, stiffness, and swelling If told, put ice on the affected area. ? Put ice in a plastic bag. ? Place a towel between your skin and the bag. ? Leave the ice on for 20 minutes, 2 3 times per day. If your joint is swollen, raise (elevate) it above the level of your heart if told by your doctor. If your joint feels stiff in the morning, try taking a warm shower. If told, put heat on the affected area. Do this as often as told by your doctor. Use the heat source that your doctor recommends, such as a moist heat pack or a heating pad. If you have diabetes, do not apply heat without asking your doctor. To apply heat: ? Place a towel between your skin and the heat source. ? Leave the heat on for 20 30 minutes. ? Remove the heat if your skin turns bright red. This is very important if you are unable to feel pain, heat, or cold. You may have a greater risk of getting burned. General instructions Do not use any products that contain nicotine or tobacco, such as cigarettes, e-cigarettes, and chewing tobacco. If you need help quitting, ask your doctor. Keep all follow-up visits as told by your doctor. This is important. Contact a doctor if: The pain gets worse. You have a fever. Get help right away if: You have very bad pain in your joint. You have swelling in your joint. Your joint is red. Many joints become painful and swollen. You have very bad back pain. Your leg is very weak. You cannot control your pee (urine) or poop (stool). Summary Arthritis means joint pain. It can also mean joint disease. A joint is a place where bones come together. The most common cause of this condition is wear and tear of a joint. Symptoms of this condition include redness, swelling, or stiffness of the joint. This condition is treated with rest, raising the joint, medicines, and putting cold or hot packs on the joint. Follow your doctor's instructions about medicines, activity, exercises, and other home care treatments. This information is not intended to replace advice given to you by your health care provider. Make sure you discuss any questions you have with your health care provider. Document Released: 02/09/2011 Document Revised: 10/23/2019 Document Reviewed: 10/23/2019 [employer] Patient Education 2020 Plated. Shoulder Joint Replacement, Care After This sheet gives you information about how to care for yourself after your procedure. Your health care provider may also give you more specific instructions. If you have problems or questions, contact your health care provider. What can I expect after the procedure? After your procedure, it is common to have: A bruised and stiff shoulder. A bruised and stiff arm. Some pain. Follow these instructions at home: If you have a sling: Wear the sling as told by your health care provider. Remove it only as told by your health care provider. Loosen the sling if your fingers tingle, become numb, or turn cold and blue. Keep the sling clean. If the sling is not waterproof: ? Do not let it get wet. ? Cover it with a watertight covering when you take a bath or a shower. Bathing Do not take baths, swim, or use a hot tub until your health care provider approves. Ask your health care provider if you can take showers. You may only be allowed to take sponge baths for bathing. If your sling is not waterproof, cover it with a watertight covering when you take a bath or a shower. Keep the bandage (dressing) dry until your health care provider says it can be removed. Managing pain, stiffness, and swelling If directed, put ice on the affected area. ? If you have a removable sling, remove it as told by your health care provider. ? Put ice in a plastic bag. ? Place a towel between your skin and the bag. ? Leave the ice on for 20 minutes, 2 3 times a day. Move your fingers often to avoid stiffness and to lessen swelling. Driving Do not drive or use heavy machinery while taking prescription pain medicine. Do not drive for 2 4 weeks after surgery or as told by your health care provider. Medicine Take vkfj-cwu-hqnhrff and prescription medicines only as told by your health care provider. If you were prescribed an antibiotic medicine, use it as told by your health care provider. Do not stop using the antibiotic even if you start to feel better. Incision care Follow instructions from your health care provider about how to take care of your incision area. Make sure you: ? Wash your hands with soap and water before you change your bandage (dressing). If soap and water are not available, use hand member services coordinator. ? Change your dressing as told by your health care provider. ? Leave cezar, stitches (sutures), skin glue, or adhesive strips in place. These skin closures may need to stay in place for 2 weeks or longer. If adhesive strip edges start to loosen and curl up, you may trim the loose edges. Do not remove adhesive strips completely unless your health care provider tells you to do that. If you have a tube to remove drainage, follow instructions from your health care provider about caring for it. Do not remove the drain tube or any dressings around the tube opening unless your health care provider approves. Check your incision area every day for signs of infection. Check for: ? More redness, swelling, or pain. ? More fluid or blood. ? Warmth. ? Pus or a bad smell. Activity Do not use your arm to push yourself up in bed or from a chair. This requires too much muscle. Follow lifting restrictions as told: ? Do not lift anything that is heavier than a cup of coffee for the first 6 weeks after surgery, or as told by your health care provider. ? Do not lift anything that is heavier than 10 lb (4.5 kg) for 6 months, or as told by your health care provider. Do exercises, including physical therapy, as told by your health care provider. Try not to overuse your shoulder. This includes repetitive pushing or pulling. Early overuse of the shoulder may result in later problems. (Overusing the shoulder is easy to do when your pain goes away for the first time.) Avoid overstretching your arm for 6 weeks after surgery, or as told by your health care provider. Avoid sitting for a long time without moving. Get up and move around one or more times every few hours. Ask for help with some activities. Your health care provider may be able to suggest a clinic or agency for this if you do not have home support. Do not participate in contact sports. General instructions Keep all follow-up visits as told by your health care provider. This is important. Do not use any products that contain nicotine or tobacco, such as cigarettes and e-cigarettes. These can delay healing. If you need help quitting, ask your health care provider. Contact a health care provider if: You develop a rash. You have a fever. You have more redness, swelling, or pain in the incision area. You have more fluid or blood coming from your incision area. You have more pain when moving your shoulder. Get help right away if: Your incision area feels warm to the touch. You have pus or a bad smell coming from your incision area. The edges of the incision site break open after sutures have been removed. You have chest pain or shortness of breath. Summary It is common to have pain and stiffness in your shoulder and arm after the procedure. Put ice on the affected area and take pain medicine as told by your health care provider. Do not use your arm to push yourself up in bed or from a chair. Do exercises, including physical therapy, as told by your health care provider. Check your incision area daily. Call your health care provider if you see signs of infection. This information is not intended to replace advice given to you by your health care provider. Make sure you discuss any questions you have with your health care provider. Document Released: 06/04/2006 Document Revised: 03/08/2020 Document Reviewed: 08/30/2017 [employer] Patient Education 2020 [employer] Additional Information VACCINATE! IT SAVES LIVES! Members of the community who have not yet received the COVID-19 vaccine and would like to receive it can visit one of [facility] vaccine clinics. There are many vaccine clinic locations within the [facility]. For locations and available times, please visit https://gettheshot.coronavirus.[place].gov/. It is important to note that some COVID mobile vaccine clinics are held outdoors and may be canceled in rainy or stormy conditions. To learn more about pediatric vaccinations (ages 5-11), we invite you to visit the [facility] webpage. https://www.[facility].org/pag es/7588-Dpmfs-Iazajngpvvh-Frequent cp-Eefro-Eljnltlir.html To learn more about the COVID-19 vaccine, we invite you to visit the CDC website for a list of frequently asked questions.https://www.cdc.gov/elias navirus/2019-ncov/vaccines/faq.htm l [facility] Patient Portal Access Instructions: Stay connected with your healthcare team and access your personal medical information anytime with the [facility] Patient Portal. Please follow the directions below to create your [facility] account: 1.Access the email account you provided upon registration to the hospital/physician office.2.Look for an invitation email from [facility].3.Open the email and access the invitation link: Accept Invitation to [facility].4.Fill in the required briceño to create your account. To access your account, visit [place]. Click the blue button labeled Access Patient Portal and then log in with the username and password that you created in the steps above. You will be able to view your test results, lab results, a summary of your visits, upcoming appointments and more. There is also a convenient messaging option where you can send secure messages to your provider. In addition, you will have the ability to download any documents or summaries to your computer and/or send the information securely to a physician. Remember that your healthcare information is confidential, so carefully consider who you will allow to register on the [facility] Patient Portal for access to your information. You can also access the [facility] Patient Portal on the e|tabwhere gabriela. Simply click on Patient Portal and then log into your account. If you would like to receive a full copy of your medical records, please contact the [facility] Medical Records Department by calling [phone], Wednesday through Wednesday between 8 a.m. and 4:30 p.m. HOW TO SAFELY DISPOSE OF PRESCRIPTION MEDICATIONS Please use one of the following methods to safely dispose of your unused medications. 1.Use a drug disposal kit: the drug disposal pouch allows you to safely discard your old and unused drugs. Ask your nurse to give you one when you are discharged.2.Visit a local take-back location: Many local pharmacies and police departments have programs that collect old and unwanted prescription drugs. Call your local pharmacy or go to http://SellStage.Privlo/2N3Xt6h to find one close to you.3.Make use of household items: Use cat litter or old coffee grounds to dispose medications if other options are not available. Mix your drugs with these household products, seal them in an airtight container and throw it into the garbage. Call [facility]: [phone] to be sure your drugs can be disposed of in this way. Some medicines may require a different approach.4.Never flush your medications down the toilet. IF YOU HAVE BEEN PRESCRIBED AN OPIOID FOR PAIN If you have been prescribed an opioid (such as hydrocodone, oxycodone or morphine), it is critical to understand the possible side effects and risks of opioid pain medications. Even when taken as directed, opioids can have several side effects including: Tolerance, meaning you might need to take more of a medication for the same pain relief. Nausea, vomiting and/or constipation. Sleepiness, dizziness, dry mouth, confusion, depression or itching. Physical dependence, meaning you have withdrawal symptoms when a medication is stopped, can develop within a few days. KNOW YOUR RESPONSIBILITIES It is important to know exactly how much and how often to take the opioid pain medications you are prescribed. Never take opioids in higher amounts or more often than prescribed. Do not combine opioids with alcohol or other drugs that cause drowsiness, such as benzodiazepines, also known as benzos, including diazepam and alprazolam, muscle relaxants or sleep aids. Never sell or share prescription opioids. This is illegal. Store opioids in a secure place and out of reach of others (including children, family, friends and visitors). The last page of this document has been signed and retained as a CHART COPY. Signatures Patient Education Materials Fall Prevention in the Home, Adult, Vycv-pz-Acss Arthritis, Zbcr-ij-Kkyy Shoulder Joint Replacement, Care After Medication Leaflets My discharge plan and instructions have been reviewed and explained to me and JAQUI Velásquez JAMES E understand my current condition and have read and understand these discharge instructions. I have received a written copy of the plan/instructions. If I have questions, I am aware that I should contact my doctor. Patient/Family Sociologist Signature: Date/Time: Relationship to Patient: ___ Witness Name/Signature: Date/Time: Justinviki Gillespien 10-28-2024 Telephone encounter Note Phoned and got real estate consultant for [facility] and was transferred to nurse Frederick and went over notes from Dr Ramos with understanding. [facility] 10-28-2024 Miscellaneous Notes Phoned and got real estate consultant for [facility] and was transferred to nurse Frederick and went over notes from Dr Ramos with understanding. Tried to call number, but office closed. 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 Patient not on office so did not talk to them. Will follow and cover Home Care--see if can call someone on Wednesday AM Cesilia calling again needing to know if will cover home care . They are wanting to start care on Wednesday? Please review and advise. 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 [facility] is requesting orders for halfway, physical therapy, occupational therapy, and home health aide and is asking if PCP will follow? Please call Cesilia at [facility] at # [phone] extension [phone], if PCP agreeable to follow. Estrellita Ortega, RN documented in this encounter [facility] 10-27-2024 Nurse Progress note Nursing GG Entered On: 10/27/2024 21:47 EST Performed On: 10/27/2024 21:46 EST by Susan Baum RN Nursing GG's OT GG Grid Eating : Independent Oral Hygiene : Independent Toilet Hygiene : Independent Toilet Transfer : Independent Upper Body Dressing : Supervision/Touching Assist Lower Body Dressing : Supervision/Touching Assist Putting on/taking off footwear : Supervision/Touching Assist Roll left and right : Independent Sit to lying : Supervision/Touching Assist Lying to sitting on side of bed : Supervision/Touching Assist Sit to stand : Independent Chair/npa-fm-bkapu transfer : Supervision/Touching Assist Walk 10 ft : Supervision/Touching Assist Susan Baum RN - 10/27/2024 21:46 EST Digitally Signed by Susan Baum RN on 10/27/2024 09:46 PM [facility] 10-27-2024 Telephone encounter Note Tried to call number, but office closed. 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 Patient not on office so did not talk to them. Will follow and cover Home Care--see if can call someone on Wednesday AM [facility] 10-27-2024 Telephone encounter Note Cesilia calling again needing to know if will cover home care . They are wanting to start care on Wednesday? Please review and advise. Kendy Franco LPN [facility] 10-27-2024 Nurse Progress note Nursing GG Entered On: 10/27/2024 9:55 EST Performed On: 10/27/2024 9:54 EST by Anastacia Britton RN Nursing GG's OT GG Grid Eating : Set up & Clean up Oral Hygiene : Independent Toilet Hygiene : Independent Toilet Transfer : Independent Upper Body Dressing : Supervision/Touching Assist Lower Body Dressing : Independent Sit to stand : Independent Chair/kws-xh-jnabb transfer : Independent Anastacia Britotn RN - 10/27/2024 9:54 EST Digitally Signed by Anastacia Britton RN on 10/27/2024 09:54 AM Justin Carolyn 10-25-2024 Hospital Discharge instructions Patient Education 10/25/2024 18:10:44 Fall Prevention in the Home, Adult, Glvi-my-Tark Fall Prevention in the Home, Adult Falls can cause injuries. They can happen to people of all ages. There are many things you can do to make your home safe and to help prevent falls. Ask for help when making these changes, if needed. What actions can I take to prevent falls? General Instructions Use good lighting in all rooms. Replace any light bulbs that burn out. Turn on the lights when you go into a dark area. Use night-lights. Keep items that you use often in awja-pw-uzbvu places. Lower the shelves around your home if necessary. Set up your furniture so you have a clear path. Avoid moving your furniture around. Do not have throw rugs and other things on the floor that can make you trip. Avoid walking on wet floors. If any of your floors are uneven, fix them. Add color or contrast paint or tape to clearly bev and help you see: ?Any grab bars or handrails. ?First and last steps of stairways. ?Where the edge of each step is. If you use a stepladder: ?Make sure that it is fully opened. Do not climb a closed stepladder. ?Make sure that both sides of the stepladder are locked into place. ?Ask someone to hold the stepladder for you while you use it. If there are any pets around you, be aware of where they are. What can I do in the bathroom? Keep the floor dry. Clean up any water that spills onto the floor as soon as it happens. Remove soap buildup in the tub or shower regularly. Use non-skid mats or decals on the floor of the tub or shower. Attach bath mats securely with double-sided, non-slip rug tape. If you need to sit down in the shower, use a plastic, non-slip stool. Install grab bars by the toilet and in the tub and shower. Do not use towel bars as grab bars. What can I do in the bedroom? Make sure that you have a light by your bed that is easy to reach. Do not use any sheets or blankets that are too big for your bed. They should not hang down onto the floor. Have a firm chair that has side arms. You can use this for support while you get dressed. What can I do in the kitchen? Clean up any spills right away. If you need to reach something above you, use a strong step stool that has a grab bar. Keep electrical cords out of the way. Do not use floor congolese or wax that makes floors slippery. If you must use wax, use non-skid floor wax. What can I do with my stairs? Do not leave any items on the stairs. Make sure that you have a light switch at the top of the stairs and the bottom of the stairs. If you do not have them, ask someone to add them for you. Make sure that there are handrails on both sides of the stairs, and use them. Fix handrails that are broken or loose. Make sure that handrails are as long as the stairways. Install non-slip stair treads on all stairs in your home. Avoid having throw rugs at the top or bottom of the stairs. If you do have throw rugs, attach them to the floor with carpet tape. Choose a carpet that does not hide the edge of the steps on the stairway. Check any carpeting to make sure that it is firmly attached to the stairs. Fix any carpet that is loose or worn. What can I do on the outside of my home? Use bright outdoor lighting. Regularly fix the edges of walkways and driveways and fix any cracks. Remove anything that might make you trip as you walk through a door, such as a raised step or threshold. Trim any bushes or trees on the path to your home. Regularly check to see if handrails are loose or broken. Make sure that both sides of any steps have handrails. Install guardrails along the edges of any raised decks and porches. Clear walking paths of anything that might make someone trip, such as tools or rocks. Have any leaves, snow, or ice cleared regularly. Use sand or salt on walking paths during winter. Clean up any spills in your garage right away. This includes grease or oil spills. What other actions can I take? Wear shoes that: ?Have a low heel. Do not wear high heels. ?Have rubber bottoms. ?Are comfortable and fit you well. ?Are closed at the toe. Do not wear open-toe sandals. Use tools that help you move around (mobility aids) if they are needed. These include: ?Canes. ?Walkers. ?Scooters. ?Crutches. Review your medicines with your doctor. Some medicines can make you feel dizzy. This can increase your chance of falling. Ask your doctor what other things you can do to help prevent falls. Where to find more information Centers for Disease Control and PreventionJAMIE: https://cdc.gov National [place] on Aging: https://pp4nawl.asher.nih.gov Contact a doctor if: You are afraid of falling at home. You feel weak, drowsy, or dizzy at home. You fall at home. Summary There are many simple things that you can do to make your home safe and to help prevent falls. Ways to make your home safe include removing tripping hazards and installing grab bars in the bathroom. Ask for help when making these changes in your home. This information is not intended to replace advice given to you by your health care provider. Make sure you discuss any questions you have with your health care provider. Document Released: 09/11/2010 Document Revised: 03/07/2020 Document Reviewed: 06/30/2018 [employer] Patient Education 2020 [employer] 10/25/2024 18:10:29 Arthritis, Scue-je-Yvum Arthritis Arthritis means joint pain. It can also mean joint disease. A joint is a place where bones come together. There are more than 100 types of arthritis. What are the causes? This condition may be caused by: Wear and tear of a joint. This is the most common cause. A lot of acid in the blood, which leads to pain in the joint (gout). Pain and swelling (inflammation) in a joint. Infection of a joint. Injuries in the joint. A reaction to medicines (allergy). In some cases, the cause may not be known. What are the signs or symptoms? Symptoms of this condition include: Redness at a joint. Swelling at a joint. Stiffness at a joint. Warmth coming from the joint. A fever. A feeling of being sick. How is this treated? This condition may be treated with: Treating the cause, if it is known. Rest. Raising (elevating) the joint. Putting cold or hot packs on the joint. Medicines to treat symptoms and reduce pain and swelling. Shots of medicines (cortisone) into the joint. You may also be told to make changes in your life, such as doing exercises and losing weight. Follow these instructions at home: Medicines Take cfmv-lly-uwyevzh and prescription medicines only as told by your doctor. Do not take aspirin for pain if your doctor says that you may have gout. Activity Rest your joint if your doctor tells you to. Avoid activities that make the pain worse. Exercise your joint regularly as told by your doctor. Try doing exercises like: ?Swimming. ?Water aerobics. ?Biking. ?Walking. Managing pain, stiffness, and swelling If told, put ice on the affected area. ?Put ice in a plastic bag. ?Place a towel between your skin and the bag. ?Leave the ice on for 20 minutes, 2 3 times per day. If your joint is swollen, raise (elevate) it above the level of your heart if told by your doctor. If your joint feels stiff in the morning, try taking a warm shower. If told, put heat on the affected area. Do this as often as told by your doctor. Use the heat source that your doctor recommends, such as a moist heat pack or a heating pad. If you have diabetes, do not apply heat without asking your doctor. To apply heat: ?Place a towel between your skin and the heat source. ?Leave the heat on for 20 30 minutes. ?Remove the heat if your skin turns bright red. This is very important if you are unable to feel pain, heat, or cold. You may have a greater risk of getting burned. General instructions Do not use any products that contain nicotine or tobacco, such as cigarettes, e-cigarettes, and chewing tobacco. If you need help quitting, ask your doctor. Keep all follow-up visits as told by your doctor. This is important. Contact a doctor if: The pain gets worse. You have a fever. Get help right away if: You have very bad pain in your joint. You have swelling in your joint. Your joint is red. Many joints become painful and swollen. You have very bad back pain. Your leg is very weak. You cannot control your pee (urine) or poop (stool). Summary Arthritis means joint pain. It can also mean joint disease. A joint is a place where bones come together. The most common cause of this condition is wear and tear of a joint. Symptoms of this condition include redness, swelling, or stiffness of the joint. This condition is treated with rest, raising the joint, medicines, and putting cold or hot packs on the joint. Follow your doctor's instructions about medicines, activity, exercises, and other home care treatments. This information is not intended to replace advice given to you by your health care provider. Make sure you discuss any questions you have with your health care provider. Document Released: 02/09/2011 Document Revised: 10/23/2019 Document Reviewed: 10/23/2019 [employer] Patient Education 2020 Plated. 10/25/2024 18:10:10 Shoulder Joint Replacement, Care After Shoulder Joint Replacement, Care After This sheet gives you information about how to care for yourself after your procedure. Your health care provider may also give you more specific instructions. If you have problems or questions, contact your health care provider. What can I expect after the procedure? After your procedure, it is common to have: A bruised and stiff shoulder. A bruised and stiff arm. Some pain. Follow these instructions at home: If you have a sling: Wear the sling as told by your health care provider. Remove it only as told by your health care provider. Loosen the sling if your fingers tingle, become numb, or turn cold and blue. Keep the sling clean. If the sling is not waterproof: ?Do not let it get wet. ?Cover it with a watertight covering when you take a bath or a shower. Bathing Do not take baths, swim, or use a hot tub until your health care provider approves. Ask your health care provider if you can take showers. You may only be allowed to take sponge baths for bathing. If your sling is not waterproof, cover it with a watertight covering when you take a bath or a shower. Keep the bandage (dressing) dry until your health care provider says it can be removed. Managing pain, stiffness, and swelling If directed, put ice on the affected area. ?If you have a removable sling, remove it as told by your health care provider. ?Put ice in a plastic bag. ?Place a towel between your skin and the bag. ?Leave the ice on for 20 minutes, 2 3 times a day. Move your fingers often to avoid stiffness and to lessen swelling. Driving Do not drive or use heavy machinery while taking prescription pain medicine. Do not drive for 2 4 weeks after surgery or as told by your health care provider. Medicine Take lyyo-lam-mphwwyq and prescription medicines only as told by your health care provider. If you were prescribed an antibiotic medicine, use it as told by your health care provider. Do not stop using the antibiotic even if you start to feel better. Incision care Follow instructions from your health care provider about how to take care of your incision area. Make sure you: ?Wash your hands with soap and water before you change your bandage (dressing). If soap and water are not available, use hand member services coordinator. ?Change your dressing as told by your health care provider. ?Leave cezar, stitches (sutures), skin glue, or adhesive strips in place. These skin closures may need to stay in place for 2 weeks or longer. If adhesive strip edges start to loosen and curl up, you may trim the loose edges. Do not remove adhesive strips completely unless your health care provider tells you to do that. If you have a tube to remove drainage, follow instructions from your health care provider about caring for it. Do not remove the drain tube or any dressings around the tube opening unless your health care provider approves. Check your incision area every day for signs of infection. Check for: ?More redness, swelling, or pain. ?More fluid or blood. ?Warmth. ?Pus or a bad smell. Activity Do not use your arm to push yourself up in bed or from a chair. This requires too much muscle. Follow lifting restrictions as told: ?Do not lift anything that is heavier than a cup of coffee for the first 6 weeks after surgery, or as told by your health care provider. ?Do not lift anything that is heavier than 10 lb (4.5 kg) for 6 months, or as told by your health care provider. Do exercises, including physical therapy, as told by your health care provider. Try not to overuse your shoulder. This includes repetitive pushing or pulling. Early overuse of the shoulder may result in later problems. (Overusing the shoulder is easy to do when your pain goes away for the first time.) Avoid overstretching your arm for 6 weeks after surgery, or as told by your health care provider. Avoid sitting for a long time without moving. Get up and move around one or more times every few hours. Ask for help with some activities. Your health care provider may be able to suggest a clinic or agency for this if you do not have home support. Do not participate in contact sports. General instructions Keep all follow-up visits as told by your health care provider. This is important. Do not use any products that contain nicotine or tobacco, such as cigarettes and e-cigarettes. These can delay healing. If you need help quitting, ask your health care provider. Contact a health care provider if: You develop a rash. You have a fever. You have more redness, swelling, or pain in the incision area. You have more fluid or blood coming from your incision area. You have more pain when moving your shoulder. Get help right away if: Your incision area feels warm to the touch. You have pus or a bad smell coming from your incision area. The edges of the incision site break open after sutures have been removed. You have chest pain or shortness of breath. Summary It is common to have pain and stiffness in your shoulder and arm after the procedure. Put ice on the affected area and take pain medicine as told by your health care provider. Do not use your arm to push yourself up in bed or from a chair. Do exercises, including physical therapy, as told by your health care provider. Check your incision area daily. Call your health care provider if you see signs of infection. This information is not intended to replace advice given to you by your health care provider. Make sure you discuss any questions you have with your health care provider. Document Released: 06/04/2006 Document Revised: 03/08/2020 Document Reviewed: 08/30/2017 [employer] Patient Education 2020 Plated. Follow Up Care 10/16/2024 15:50:39 With:TYLER HAIRSTON MD, Urology Service Address: [address] [place] [address] [address] [place] [address] [phone] When: Unknown Comments:Urology, Left a voicemail with the nurse line, please schedule this follow up appointment - With:NACHO ROSE, Orthopedic Address: [address] [place] [address] [address] [facility], [place] [address]- When:11/02/2024 10:15:00 Comments:Ortho - With:LAILA RAMOS MD Address: [address] [place] [id number]- When:11/02/2024 09:00:00 Comments:PCP - Please take discharge paperwork with you to your appointment - Justin Gillespien 10-25-2024 Physical medicine and rehab Progress note Date of Service 10/25/2024 Chief Complaint reverse total shoulder left Subjective Patient is a 83 -year-old male seen today in follow-up. Case discussed in team staffing. Weekly rehab report is reviewed. Case discussed with family. All questions are answered. Plan is to continue acute rehab with PT OT and speech-language therapy services. Continue to work on gait training range of motion strengthening ADLs self-care therapy. Independent mobility with cane. Set up lower body ADLs Goal is for discharge home at a modified independent level with probable home care services. Plan discharge date 10/28/24 Barriers to discharge nwb lue For further details, please see electronic team staffing note Medication list reviewed Objective Vitals and Measurements T: 36.4 C (Oral) TMIN: 36.4 C (Oral) TMAX: 36.6 C (Oral) HR: 86 (Apical) RR: 16 BP: 104/60 SpO2: 96% Intake and Output 7AM Yesterday to 7AM Today Intake and Output (Last 24 hours) Intake Oral Intake 480.00 Output Stool Count 1.00 Total Summary Total Intake 480.00 Total Output 0.00 Fluid Balance 480.00 Physical Exam General Appearance: Alert and oriented 3 no apparent distress Head: Normocephalic no evidence of trauma EENT: Pupils equal and reactive to light and accommodation no erythema. Ears with no external lesions or discharge. Nose clear nares patent no discharge. Throat normal healthy dentition no redness or erythema. Neck: Trachea midline. No lymphatic adenopathy Cardiac: Regular rate and rhythm, no rubs or murmurs Lungs: Clear to auscultation, no adventitious sounds, good aeration Abdomen: Soft nontender no organomegaly or rebound positive bowel sounds Musculoskeletal: Left shoulder sling in place. Mild polyarthritic changes distally. Extremities: No edema. Negative Homans sign Neurological: Cranial nerves II through XII grossly intact. Strength 5 out of 5. Sensation intact. Deep tendon reflexes 2 out of 4 Skin: Intact without rashes or erythema Psychiatric: Mood good. No anxiety depression Medication list reviewed Therapy notes reviewed Weight Current Weight Dosing Weight: 92.8 kg (10/17/24) Current Weight: 95.5 kg (10/24/24) Dosing Weight: 94 kg (10/17/24) Medications Medications (35) Active Scheduled: (22) acetaminophen 500 mg Tablet 1,000 mg 2 tab(s), Oral, q8h aspirin 81 mg EC 81 mg 1 tab(s), Oral, BID busPIRone 10 mg Tablet 10 mg 1 tab(s), Oral, BID cyanocobalamin 500 mcg Tablet 1,000 mcg 2 tab(s), Oral, qDay diltiazem 120 mg/24 hours ER capsule 120 mg 1 cap(s), Oral, qAM docusate-senna (Senokot S) 50 mg-8.6 mg Tablet 2 tab(s), Oral, BID donepezil 10 mg tablet 10 mg 1 tab(s), Oral, qHS finasteride 5 mg tablet 5 mg 1 tab(s), Oral, qDay folic acid 1 mg tablet 1 mg 1 tab(s), Oral, BIDM lisinopril 5 mg tablet 5 mg 1 tab(s), Oral, Daily magnesium oxide 400 mg Tablet 400 mg 1 tab(s), Oral, BID meloxicam 7.5 mg tablet 7.5 mg 1 tab(s), Oral, BID mesalamine [address] tablet 2.4 gram(s) 3 tab(s), Oral, qDay metoprolol tartrate 50 mg tablet 50 mg 1 tab(s), Oral, BID montelukast 10 mg Tablet 10 mg 1 tab(s), Oral, qPM pantoprazole 40 mg EC tablet 40 mg 1 tab(s), Oral, BIDAC polyethylene glycol 3350 - UD packet 17 gram(s) 15 mL, Oral, qDay primidone 250 mg tablet 250 mg 1 tab(s), Oral, BID sertraline 100 mg tablet 200 mg 2 tab(s), Oral, qDay sucralfate 1 gm tablet 1 gram(s) 1 tab(s), Oral, BID tamsulosin 0.4 mg Capsule 0.8 mg 2 cap(s), Oral, qPM ubiquinone 100 mg capsule 100 mg 1 cap(s), Oral, qDay Continuous: (0) PRN: (13) acetaminophen 325 mg Tablet 650 mg 2 tab(s), Oral, q4h Al hydrox/Mg hydrox/simethicone 200-200-20 mg/5 mL Susp UD 30 mL, Oral, q6h albuterol 0.083% Soln UD (2.5mg/3 mL) 2.5 mg 3 mL, Inhalation, q4hRT dextrose 50% Solution Disp syringe 50 mL 12.5 gram(s) 25 mL, IV Push, AsDirected docusate sodium 100 mg Capsule 100 mg 1 cap(s), Oral, BID glucagon recombinant 1 mg 1 mg 1 mL, Intramuscular, AsDirected glucose 4 gm Chewable 16 gram(s) 4 tab(s), Chewed, AsDirected glycerin adult Suppository 1 supp, Rectal, Daily magnesium hydroxide 8% Suspension 30 mL UD 30 mL, Oral, qDay oxycodone 5 mg tablet (immediate release) 10 mg 2 tab(s), Oral, q6hr oxycodone 5 mg tablet (immediate release) 5 mg 1 tab(s), Oral, q6hr polyethylene glycol 3350 - UD packet 17 gram(s) 15 mL, Oral, qDay senna 8.6 mg Tablet 8.6 mg 1 tab(s), Oral, qDay Lab Results No 36 Hour Lab Data EKG No qualifying data available. Assessment/Plan 1. S/p reverse total shoulder arthroplasty acute rehab PT 90 services. Nonweightbearing left 2. Arthritis Range of motion strengthening 3. 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 [facility] is requesting orders for halfway, physical therapy, occupational therapy, and home health aide and is asking if PCP will follow? Please call Cesilia at [facility] at # [phone] extension [phone], if PCP agreeable to follow. Estrellita Ortega RN [facility] 10-25-2024 Note Subjective Patient states he is doing good this morning. Still reports his bladder scan was 300 this morning. He denies any urinary urgency, frequency, or dysuria, Flomax increased to yesterday. Denies any fevers or chills. Chua catheter discontinued on 10/20. Denies any lightness, dizziness, or headache with blood pressures 100/62-110/58. Reports his bowels are now moving, states his last vomit was yesterday. Denies any abdominal pain, nausea, vomiting. States that pressures are going well and denies any uncontrolled pain. Objective General: No acute distress, alert and oriented x 4. Lying in bed, appears comfortable, and does not appear in acute pain. Pleasant and cooperative. Good eye contact with flat affect. Cognition cognitive impairment at baseline, no increased confusion HEENT: EOMI, MMM, and no nasal drainage Respiratory: Lungs are clear to auscultation. Respirations are unlabored on room air. No cough, congestion, or conversational dyspnea Cardiovascular: Heart rate regular. No bradycardia, tachycardia, or heart murmur Edema/Varicosities of Extremities: No edema to the bilateral extremities. No calf tenderness. Gastrointestinal: Bowel sounds are present in 4 quadrants. Abdomen is nontender, soft, and nondistended. Genitourinary: No suprapubic tenderness, no CVA tenderness, no bladder distention. Skin: Left upper extremity with brace and sling in place. Neurovascular check intact. VITALS [id number]( kg) 10/25 02:0136.4--[id number] 10/24 21:0836.6--[id number] 10/24 17:02----62----RA 10/24 10:01----82----RA 10/24 09:5336.5--[id number] 24 Hr Tmax: 36.6 at 10/24 21:08 36 Hr Tmax: 36.8 at 10/23 21:45 Vital Signs are the last 5 in the past 48 hours. Weights display the last 5 within 7 days. Initial Wt: 10/16 94.0 kg 207 lb Current Wt: 10/24 95.5 kg 210 lb LABS No 36 Hour Lab Data Medications Active Inpt Meds: acetaminophen Start: 10/17/24 19:17:00 EST, Dose = 1,000 mg, = 2 tab(s), Oral, q8h, 0, 10/17/24 18:48:00 EST aspirin (aspirin 81 mg oral delayed release tablet) Start: 10/17/24 21:00:00 EST, Dose = 81 mg, = 1 tab(s), Oral, BID, 14 day(s), Stop: 11/01/24 9:00:00 EST, 0, 10/17/24 18:48:00 EST busPIRone Start: 10/17/24 21:00:00 EST, Dose = 10 mg, = 1 tab(s), Oral, BID, 10/17/24 18:50:00 EST cyanocobalamin (Vitamin B12) Start: 10/17/24 19:30:00 EST, Dose = 1,000 mcg, = 2 tab(s), Oral, qDay, 0 dilTIAZem (Cardizem CD 120 mg/24 hours oral capsule, extended release) Start: 10/17/24 19:28:00 EST, Dose = 120 mg, = 1 cap(s), Oral, qAM, Hold if SBP (mmHg) < 100, 0 docusate-senna (docusate-senna 50 mg-8.6 mg oral tablet) Start: 10/17/24 20:00:00 EST, Dose = 2 tab(s), Tab, Oral, BID, 10/17/24 18:49:00 EST donepezil Start: 10/17/24 21:00:00 EST, Dose = 10 mg, = 1 tab(s), Oral, qHS, 10/17/24 18:49:00 EST finasteride (finasteride 5 mg oral tablet) Start: 10/17/24 19:20:00 EST, Dose = 5 mg, = 1 tab(s), Oral, qDay, 0, 10/17/24 18:49:00 EST folic acid Start: 10/17/24 19:20:00 EST, Dose = 1 mg, = 1 tab(s), Oral, BIDM, 0, 10/17/24 18:49:00 EST lisinopril Start: 10/17/24 19:21:00 EST, Dose = 5 mg, = 1 tab(s), Oral, Daily, Hold if SBP (mmHg) < 120, 0, 10/17/24 18:49:00 EST magnesium oxide Start: 10/17/24 19:21:00 EST, Dose = 400 mg, = 1 tab(s), Oral, BID, 0, 10/17/24 18:49:00 EST meloxicam (Mobic) Start: 10/17/24 21:00:00 EST, Dose = 7.5 mg, = 1 tab(s), Oral, BID, 0, 10/17/24 19:26:00 EST mesalamine (mesalamine 800 mg oral delayed release tablet) Start: 10/17/24 19:21:00 EST, Dose = 2.4 gram(s), = 3 tab(s), Oral, qDay, Patient's Own Med, 0, 10/17/24 18:49:00 EST metoprolol (metoprolol tartrate 50 mg oral tablet) Start: 10/17/24 19:36:00 EST, Dose = 50 mg, = 1 tab(s), Oral, BID, Hold if SBP (mmHg) < 100, 0, 10/17/24 18:49:00 EST montelukast Start: 10/17/24 22:00:00 EST, Dose = 10 mg, = 1 tab(s), Oral, qPM, 0, 10/17/24 18:50:00 EST pantoprazole Start: 10/18/24 7:00:00 EST, Dose = 40 mg, = 1 tab(s), Oral, BIDAC, 0, 10/17/24 18:49:00 EST polyethylene glycol 3350 (Miralax Powder Packet) Start: 10/24/24 12:55:00 EST, Dose = 17 gram(s), = 15 mL, Oral, qDay, 0, 10/24/24 12:52:00 EST primidone Start: 10/17/24 21:00:00 EST, Dose = 250 mg, = 1 tab(s), Oral, BID, 10/17/24 18:50:00 EST sertraline Start: 10/17/24 19:24:00 EST, Dose = 200 mg, = 2 tab(s), Oral, qDay, 0, 10/17/24 18:50:00 EST sucralfate Start: 10/17/24 21:00:00 EST, Dose = 1 gram(s), = 1 tab(s), Oral, BID, 0, 10/17/24 18:50:00 EST tamsulosin Start: 10/24/24 22:00:00 EST, Dose = 0.8 mg, = 2 cap(s), Oral, qPM, 0, 10/24/24 12:51:00 EST ubiquinone (Coenzyme Q10) Start: 10/17/24 19:25:00 EST, Dose = 100 mg, = 1 cap(s), Oral, qDay, 0, 10/17/24 18:51:00 EST Active PRN Meds: Al hydroxide/Mg hydroxide/simethicone (Maalox) Start: 10/17/24 19:11:00 EST, Dose = 30 mL, Susp, Oral, q6h, PRN, Indigestion, 0, 10/17/24::00 EST acetaminophen (Tylenol) Start: 10/17/24:: EST, Dose = 650 mg, = 2 tab(s), Oral, q4h, PRN, Pain, scale 1-10, 0, 10/17/24: EST albuterol Start: 10/17/24:31: EST, Dose = 2.5 mg, = 3 mL, Inhalation, q4hRT, PRN, Shortness of breath or wheezing, 0 docusate (Colace) Start: 10/17/24: EST, Dose = 100 mg, = 1 cap(s), Oral, BID, PRN, Constipation, 10/17/24:: EST glucagon (GlucaGen) Start: 10/17/24: EST, Dose = 1 mg, = 1 mL, Intramuscular, AsDirected, PRN, Hypoglycemia, if unresponsive, NO IV ACCESS & blood glucose less than 70mg/dL. If still unresponsive after 2 minutes, REPEAT x1., 0, 10/17/24:: EST glucose (Dextrose 50% IV Push) Start: 10/17/24:: EST, Dose = 12.5 gram(s), = 25 mL, IV Push, AsDirected, PRN, Hypoglycemia, if unresponsive WITH IV ACCESS & blood glucose less than 70mg/dL. If still unresponsive after 2 minutes, REPEAT x1., 0, 10/17/24:: EST glucose Start: 10/17/24:: EST, Dose = 16 gram(s), = 4 tab(s), Chewed, AsDirected, PRN, Hypoglycemia, DIABETIC PATIENT if responsive & blood glucose less than 70mg/dL. If blood glucose less than 70mg/dL after 15 minutes, REPEAT x1., 0, 10/17/24 19:1... glycerin (glycerin adult rectal suppository) Start: 10/17/24:: EST, Dose = 1 supp, Supp, Rectal, Daily, PRN, Constipation, 10/17/24::00 EST magnesium hydroxide (Milk of Magnesia) Start: 10/17/24 19:11:00 EST, Dose = 30 mL, Susp-Oral, Oral, qDay, PRN, Constipation, 10/17/24 19:11:00 EST oxyCODONE (oxyCODONE 5 mg oral tablet ( IMMEDIATE release )) Start: 10/17/24 20:11:00 EST, Dose = 10 mg, = 2 tab(s), Oral, q6hr, PRN, as needed for pain, 10/17/24 20:11:00 EST oxyCODONE (oxyCODONE 5 mg oral tablet ( IMMEDIATE release )) Start: 10/17/24 20:10:00 EST, Dose = 5 mg, = 1 tab(s), Oral, q6hr, PRN, as needed for pain, 10/17/24 20:10:00 EST polyethylene glycol 3350 (Miralax Powder Packet) Start: 10/17/24 19:11:00 EST, Dose = 17 gram(s), = 15 mL, Oral, qDay, PRN, Constipation, 10/17/24 19:11:00 EST senna Start: 10/17/24 18:50:00 EST, Dose = 8.6 mg, = 1 tab(s), Oral, qDay, PRN, Constipation, 10/17/24 18:50:00 EST One Time Meds: None Active IV Meds: None Problems (6) Arthritis (1969061) Colitis (673384849) Fall (on) (from) other stairs and steps, initial encounter (208410440) HTN (hypertension) (1308697267) Macular degeneration (3394597124) Occasional tremors (38772497) ASSESSMENT/PLAN: Left shoulder dislocation failed conservative treatment now status post left reverse total shoulder arthroplasty. Ordered to be nonweightbearing to the left upper extremity. Follow-up with orthopedic 10/25 Acute postoperative pain on scheduled Tylenol plus meloxicam with oxycodone 1 or 2 tablet as needed for breakthrough pain. Opiate induced constipation with history of chronic colitis he is on mesalamine plus senna S, as needed bowel medications are in place with close reevaluation of symptomatology Acute gait dysfunction with mobility. Working with PT and OT services Acute urinary retention with history of BPH, continue Flomax plus finasteride, Chua placed for retention he does follow with urology, voiding trial initiated 10/20-successful History of Parkinson's versus essential tremor, he is on primidone, reevaluating symptoms, currently appear to be well-controlled. Propranolol discontinued per neurology recommendation. No tremor noted History of mild cognitive impairment on Aricept, alert and oriented Isolated soft blood pressures with history of hypertension continuing lisinopril plus metoprolol and diltiazem History of Crohn's continue with mesalamine Hypomagnesemia supplemented Anxiety BuSpar, mood and cognition stable DVT prophylaxis aspirin 81 twice daily x 14 day. No active bleeding Depression Zoloft, mood and cognition remains stable GERD continue Carafate plus Protonix Trial of void initiated 10/20, bladder scan showing improvement, denies any urinary symptoms. Bladder scans as needed X-ray obtained 10/23, reviewed at this time without acute fractures Holding parameters on Cardizem, metoprolol and lisinopril. Monitoring blood pressures closely, encouraging oral hydration. Patient asymptomatic. Blood pressures currently stable off of the propranolol Drug-induced constipation, continues on the senna S with recent addition of scheduled MiraLAX. Bowel regimen effective So far voiding trial the past 24 hours has been less than 500 discontinue bladder scans and just change them to as needed he is currently at 300 this morning Medications reviewed and up to date This document was transcribed using dictation software and may contain typographical errors. IJuan RN, am scribing for , and in the presence of Dr. Yip. I, Dr. Yip, personally performed the services described in this documentation, as scribed byJuan RN in my presence and it is both accurate and complete. Digitally Signed by EVELIA YIP DO on 10/26/2024 09:48 AM Justin Leon 10-24-2024 Note Subjective Patient states that he is doing okay, states that he is having some difficulties with constipation, states he has not had a good bowel movement in over 3 days. He denies abdominal pain or nausea/vomiting. He does state his appetite remains good and he is eating well. States that he has intermittent issues with constipation at home as well. States that he is trying his best to urinate, states he would like to have the Chua catheter stay out as he does not want to go home with the Chua catheter. He does state he would do another 24 hours prior to placing the Chua catheter again. States that he would like to have a good bowel movement prior to making the decision about keeping the Chua catheter in or out Objective General: Alert, oriented with baseline cognitive impairment no acute distress. Sitting in wheelchair, appears comfortable. Does not appear to be in pain. Pleasant, calm, cooperative. Good eye contact, flat affect HEENT: MMM. EOMI. No nasal drainage Respiratory: Lungs clear nonlabored on room air; no cough or congestion Cardiovascular: HRR; no tachycardia; no murmur Edema/Varicosities of Extremities: No edema BLE, compression stockings on Gastrointestinal: Bowel sounds present x 4; abdomen soft/nondistended/nontender Genitourinary: No CVA tenderness, no suprapubic tenderness, no bladder distention Skin: Left arm brace/sling in place VITALS [id number]( kg) 10/24 06:0036.5--75--93RA10/17 92.8 10/23 21:4536.8--010194EI92/19 94.0 10/23 17:36----65----RA 10/23 10:21----85----RA 10/23 10:0336.6--371172HD 24 Hr Tmax: 36.8 at 10/23 21:45 36 Hr Tmax: 36.8 at 10/23 21:45 Vital Signs are the last 5 in the past 48 hours. Weights display the last 5 within 7 days. Initial Wt: 10/16 94.0 kg 207 lb Current Wt: 10/24 95.5 kg 210 lb LABS No 36 Hour Lab Data Medications Active Inpt Meds: acetaminophen Start: 10/17/24 19:17:00 EST, Dose = 1,000 mg, = 2 tab(s), Oral, q8h, 0, 10/17/24 18:48:00 EST aspirin (aspirin 81 mg oral delayed release tablet) Start: 10/17/24 21:00:00 EST, Dose = 81 mg, = 1 tab(s), Oral, BID, 14 day(s), Stop: 11/01/24 9:00:00 EST, 0, 10/17/24 18:48:00 EST busPIRone Start: 10/17/24 21:00:00 EST, Dose = 10 mg, = 1 tab(s), Oral, BID, 10/17/24 18:50:00 EST cyanocobalamin (Vitamin B12) Start: 10/17/24 19:30:00 EST, Dose = 1,000 mcg, = 2 tab(s), Oral, qDay, 0 dilTIAZem (Cardizem CD 120 mg/24 hours oral capsule, extended release) Start: 10/17/24 19:28:00 EST, Dose = 120 mg, = 1 cap(s), Oral, qAM, Hold if SBP (mmHg) < 100, 0 docusate-senna (docusate-senna 50 mg-8.6 mg oral tablet) Start: 10/17/24 20:00:00 EST, Dose = 2 tab(s), Tab, Oral, BID, 10/17/24 18:49:00 EST donepezil Start: 10/17/24 21:00:00 EST, Dose = 10 mg, = 1 tab(s), Oral, qHS, 10/17/24 18:49:00 EST finasteride (finasteride 5 mg oral tablet) Start: 10/17/24 19:20:00 EST, Dose = 5 mg, = 1 tab(s), Oral, qDay, 0, 10/17/24 18:49:00 EST folic acid Start: 10/17/24 19:20:00 EST, Dose = 1 mg, = 1 tab(s), Oral, BIDM, 0, 10/17/24 18:49:00 EST lisinopril Start: 10/17/24 19:21:00 EST, Dose = 5 mg, = 1 tab(s), Oral, Daily, Hold if SBP (mmHg) < 120, 0, 10/17/24 18:49:00 EST magnesium oxide Start: 10/17/24 19:21:00 EST, Dose = 400 mg, = 1 tab(s), Oral, BID, 0, 10/17/24 18:49:00 EST meloxicam (Mobic) Start: 10/17/24 21:00:00 EST, Dose = 7.5 mg, = 1 tab(s), Oral, BID, 0, 10/17/24 19:26:00 EST mesalamine (mesalamine 800 mg oral delayed release tablet) Start: 10/17/24 19:21:00 EST, Dose = 2.4 gram(s), = 3 tab(s), Oral, qDay, Patient's Own Med, 0, 10/17/24 18:49:00 EST metoprolol (metoprolol tartrate 50 mg oral tablet) Start: 10/17/24 19:36:00 EST, Dose = 50 mg, = 1 tab(s), Oral, BID, Hold if SBP (mmHg) < 100, 0, 10/17/24 18:49:00 EST montelukast Start: 10/17/24 22:00:00 EST, Dose = 10 mg, = 1 tab(s), Oral, qPM, 0, 10/17/24 18:50:00 EST pantoprazole Start: 10/18/24 7:00:00 EST, Dose = 40 mg, = 1 tab(s), Oral, BIDAC, 0, 10/17/24 18:49:00 EST primidone Start: 10/17/24 21:00:00 EST, Dose = 250 mg, = 1 tab(s), Oral, BID, 10/17/24 18:50:00 EST sertraline Start: 10/17/24 19:24:00 EST, Dose = 200 mg, = 2 tab(s), Oral, qDay, 0, 10/17/24 18:50:00 EST sucralfate Start: 10/17/24 21:00:00 EST, Dose = 1 gram(s), = 1 tab(s), Oral, BID, 0, 10/17/24 18:50:00 EST tamsulosin Start: 10/17/24 19:25:00 EST, Dose = 0.4 mg, = 1 cap(s), Oral, qDay, 0, 10/17/24 18:50:00 EST ubiquinone (Coenzyme Q10) Start: 10/17/24 19:25:00 EST, Dose = 100 mg, = 1 cap(s), Oral, qDay, 0, 10/17/24 18:51:00 EST Active PRN Meds: Al hydroxide/Mg hydroxide/simethicone (Maalox) Start: 10/17/24:: EST, Dose = 30 mL, Susp, Oral, q6h, PRN, Indigestion, 0, 10/17/24:: EST acetaminophen (Tylenol) Start: 10/17/24 EST, Dose = 650 mg, = 2 tab(s), Oral, q4h, PRN, Pain, scale 1-10, 0, 10/17/24: EST albuterol Start: 10/17/24:: EST, Dose = 2.5 mg, = 3 mL, Inhalation, q4hRT, PRN, Shortness of breath or wheezing, 0 docusate (Colace) Start: 10/17/24: EST, Dose = 100 mg, = 1 cap(s), Oral, BID, PRN, Constipation, 10/17/24:: EST glucagon (GlucaGen) Start: 10/17/24 EST, Dose = 1 mg, = 1 mL, Intramuscular, AsDirected, PRN, Hypoglycemia, if unresponsive, NO IV ACCESS & blood glucose less than 70mg/dL. If still unresponsive after 2 minutes, REPEAT x1., 0, 10/17/24:: EST glucose (Dextrose 50% IV Push) Start: 10/17/24:: EST, Dose = 12.5 gram(s), = 25 mL, IV Push, AsDirected, PRN, Hypoglycemia, if unresponsive WITH IV ACCESS & blood glucose less than 70mg/dL. If still unresponsive after 2 minutes, REPEAT x1., 0, 10/17/24:: EST glucose Start: 10/17/24:: EST, Dose = 16 gram(s), = 4 tab(s), Chewed, AsDirected, PRN, Hypoglycemia, DIABETIC PATIENT if responsive & blood glucose less than 70mg/dL. If blood glucose less than 70mg/dL after 15 minutes, REPEAT x1., 0, 10/17/24 19:1... glycerin (glycerin adult rectal suppository) Start: 10/17/24: EST, Dose = 1 supp, Supp, Rectal, Daily, PRN, Constipation, 10/17/24 19:11:00 EST magnesium hydroxide (Milk of Magnesia) Start: 10/17/24 19:11:00 EST, Dose = 30 mL, Susp-Oral, Oral, qDay, PRN, Constipation, 10/17/24 19:11:00 EST oxyCODONE (oxyCODONE 5 mg oral tablet ( IMMEDIATE release )) Start: 10/17/24 20:11:00 EST, Dose = 10 mg, = 2 tab(s), Oral, q6hr, PRN, as needed for pain, 10/17/24 20:11:00 EST oxyCODONE (oxyCODONE 5 mg oral tablet ( IMMEDIATE release )) Start: 10/17/24 20:10:00 EST, Dose = 5 mg, = 1 tab(s), Oral, q6hr, PRN, as needed for pain, 10/17/24 20:10:00 EST polyethylene glycol 3350 (Miralax Powder Packet) Start: 10/17/24 19:11:00 EST, Dose = 17 gram(s), = 15 mL, Oral, qDay, PRN, Constipation, 10/17/24 19:11:00 EST senna Start: 10/17/24 18:50:00 EST, Dose = 8.6 mg, = 1 tab(s), Oral, qDay, PRN, Constipation, 10/17/24 18:50:00 EST One Time Meds: None Active IV Meds: None Problems (6) Arthritis (0071181) Colitis (567304033) Fall (on) (from) other stairs and steps, initial encounter (951671332) HTN (hypertension) (1274846306) Macular degeneration (8890651705) Occasional tremors (61086343) ASSESSMENT/PLAN: Left shoulder dislocation failed conservative treatment now status post left reverse total shoulder arthroplasty. Ordered to be nonweightbearing to the left upper extremity. Follow-up with orthopedic 10/25 Acute postoperative pain on scheduled Tylenol plus meloxicam with oxycodone 1 or 2 tablet as needed for breakthrough pain. Opiate induced constipation with history of chronic colitis he is on mesalamine plus senna S, as needed bowel medications are in place with close reevaluation of symptomatology Acute gait dysfunction with mobility. Working with PT and OT services Acute urinary retention with history of BPH, continue Flomax plus finasteride, Chua placed for retention he does follow with urology, voiding trial initiated 10/20 History of Parkinson's versus essential tremor, he is on primidone, reevaluating symptoms, currently appear to be well-controlled. Propranolol discontinued per neurology recommendation. No tremor noted History of mild cognitive impairment on Aricept, alert and oriented Isolated soft blood pressures with history of hypertension continuing lisinopril plus metoprolol and diltiazem History of Crohn's continue with mesalamine Hypomagnesemia supplemented Anxiety BuSpar DVT prophylaxis aspirin 81 twice daily x 14 day Depression Zoloft, mood and cognition stable GERD continue Carafate plus Protonix Trial of void initiated 10/20, still with some postvoid greater than 500 reassessing for another 24 hours increase Flomax to 0.8 nightly, close clinical reevaluation and make sure his bowels are working discussion with him today that we may need to replace Chua catheter and follow-up with urology X-ray obtained 10/23, reviewed at this time without acute fractures Holding parameters on Cardizem, metoprolol and lisinopril. Monitoring blood pressures closely, encouraging oral hydration. Patient asymptomatic. Blood pressures currently stable off of the propranolol Medications reviewed and up to date This document was transcribed using dictation software and may contain typographical errors. Laura Velásquez RN, am scribing for , and in the presence of Dr. Yip. I, Dr. Yip, personally performed the services described in this documentation, as scribed byLaura RN in my presence and it is both accurate and complete. Digitally Signed by EVELIA YIP DO on 10/27/2024 08:56 AM Justin Leon 10-24-2024 Physical medicine and rehab Progress note Rehab Note Chief Complaint: Seeing this patient for reevaluation of therapy progress, reverse left shoulder arthroplasty History of Present Illness: Seeing this patient for reevaluation of therapy and total reverse left shoulder arthroplasty. Patient participates in acute inpatient rehabilitation with PT and OT services. 83-year-old male presented to the emergency room with ongoing left shoulder pain following recent dislocation in May. Had multiple failed conservative treatments and underwent a planned left reverse total shoulder arthroplasty on 10/[address] Francisco. Postoperatively he did suffer some urinary retention and required straight catheterization and resulting in Chua catheter placement. Orthopedics ordered patient to be nonweightbearing to the left lower extremity with sling in place at all times. He was started on aspirin 81 mg twice daily for DVT prophylaxis and is to complete a 14-day course. He was placed on as needed oxycodone, scheduled Tylenol, and meloxicam for pain control. Past medical history includes history of Parkinson's disease, essential tremor, arthritis, colitis, Crohn's, hypertension, and macular degeneration. Today patient is sitting in dining room eating breakfast, denies any coughing or choking episodes, reports his appetite is good. Reports he is doing well making good progress with therapy. Does have follow-up with orthopedics scheduled for 11/02. Reports pain is well-controlled with current pain regiment, continues with Tylenol every 8 hours scheduled, does have as needed Tylenol and oxycodone available for breakthrough pain. Discussed with nursing. Medications reviewed. Goal is to discharge home alone with home health care services. Goal discharge date for 10/28/2024 Medication List Active Medications Ordered acetaminophen: 650 mg, 2 tab(s), Oral, q4h, PRN: Pain, scale 1-10. acetaminophen: 1,000 mg, 2 tab(s), Oral, q8h. albuterol: 2.5 mg, 3 mL, Inhalation, q4hRT, PRN: Shortness of breath or wheezing. Al hydroxide/Mg hydroxide/simethicone: 30 mL, Oral, q6h, PRN: Indigestion. aspirin: 81 mg, 1 tab(s), Oral, BID. busPIRone: 10 mg, 1 tab(s), Oral, BID. cyanocobalamin: 1,000 mcg, 2 tab(s), Oral, qDay. dilTIAZem: 120 mg, 1 cap(s), Oral, qAM. docusate: 100 mg, 1 cap(s), Oral, BID, PRN: Constipation. docusate-senna: 2 tab(s), Oral, BID. donepezil: 10 mg, 1 tab(s), Oral, qHS. finasteride: 5 mg, 1 tab(s), Oral, qDay. folic acid: 1 mg, 1 tab(s), Oral, BIDM. glucagon: 1 mg, 1 mL, Intramuscular, AsDirected, PRN: Hypoglycemia. glucose: 12.5 gram(s), 25 mL, IV Push, AsDirected, PRN: Hypoglycemia. glucose: 16 gram(s), 4 tab(s), Chewed, AsDirected, PRN: Hypoglycemia. glycerin: 1 supp, Rectal, Daily, PRN: Constipation. lisinopril: 5 mg, 1 tab(s), Oral, Daily. magnesium hydroxide: 30 mL, Oral, qDay, PRN: Constipation. magnesium oxide: 400 mg, 1 tab(s), Oral, BID. meloxicam: 7.5 mg, 1 tab(s), Oral, BID. mesalamine: 2.4 gram(s), 3 tab(s), Oral, qDay. metoprolol: 50 mg, 1 tab(s), Oral, BID. montelukast: 10 mg, 1 tab(s), Oral, qPM. oxyCODONE: 10 mg, 2 tab(s), Oral, q6hr, PRN: as needed for pain. oxyCODONE: 5 mg, 1 tab(s), Oral, q6hr, PRN: as needed for pain. pantoprazole: 40 mg, 1 tab(s), Oral, BIDAC. polyethylene glycol 3350: 17 gram(s), 15 mL, Oral, qDay, PRN: Constipation. primidone: 250 mg, 1 tab(s), Oral, BID. senna: 8.6 mg, 1 tab(s), Oral, qDay, PRN: Constipation. sertraline: 200 mg, 2 tab(s), Oral, qDay. sucralfate: 1 gram(s), 1 tab(s), Oral, BID. tamsulosin: 0.4 mg, 1 cap(s), Oral, qDay. ubiquinone: 100 mg, 1 cap(s), Oral, qDay. Documented acetaminophen: 1,000 mg, 2 tab(s), Oral, q8h. albuterol: 2 puff(s), Inhalation, q4h, PRN: as needed for shortness of breath or wheezing. ascorbic acid/chondroitin/glucosa/erica: 900 mg, Oral, qDay, 0 Refill(s). aspirin: 81 mg, 1 tab(s), Oral, BID, for 14 day(s). aspirin: 81 mg, 1 tab(s), Oral, BID, for 8 day(s). aspirin: 81 mg, 1 tab(s), Oral, qDay, for 30 day(s). busPIRone: 10 mg, 1 tab(s), Oral, BID. docusate-senna: 2 tab(s), Oral, BID. donepezil: 10 mg, 1 tab(s), Oral, qHS. finasteride: 5 mg, 1 tab(s), Oral, qDay. folic acid: 1 mg, 1 tab(s), Oral, BIDM. lansoprazole: 30 mg, 1 cap(s), Oral, BID. lisinopril: 5 mg, 1 tab(s), Oral, Daily. magnesium oxide: 400 mg, 1 tab(s), Oral, BID. meloxicam: 7.5 mg, 1 tab(s), Oral, BID. mesalamine: 2.4 gram(s), 2 tab(s), Oral, qDay, 0 Refill(s). metoprolol: 50 mg, 1 tab(s), Oral, BID. Misc Medication: diltiazem HCL 120 mg/24 hr, Oral, qAM, 0 Refill(s). Misc Medication: cyanocobalamin 1000 mcg/ml drops - 1000 mcg, Oral, Daily, 0 Refill(s). Misc Medication: Vitamins A,C, Z-tqwm-zdkoay ER 1 tablet, Oral, Daily, 0 Refill(s). Misc Medication: tlmvawnm-mwi-GY-lycopen-lutein 1 tab, Oral, Daily, 0 Refill(s). montelukast: 10 mg, 1 tab(s), Oral, qPM, 0 Refill(s). oxyCODONE: 1-2 tabs, Oral, q4h, for 7 day(s), for pain 4-6/10, PRN: for pain, 0 Refill(s). primidone: 250 mg, 1 tab(s), Oral, BID. propranolol: 40 mg, 1 tab(s), Oral, TID. senna: 8.6 mg, 1 tab(s), Oral, qDay, PRN: as needed for constipation, 100 tab(s), 0 Refill(s). sertraline: 200 mg, 2 tab(s), Oral, qDay. sucralfate: 1 gram(s), 1 tab(s), Oral, BID. tamsulosin: 0.4 mg, 1 cap(s), Oral, qDay, 30 cap(s), 0 Refill(s). ubiquinone: 100 mg, Oral, qDay. Medications Inactivated in the Last 72 Hours cyanocobalamin: Miscellaneous, Once. docusate-senna: Miscellaneous, Once. Social history: Social support: Lives alone Home set-up: Single level home, first-floor bedroom/bathroom. Laundry basement Barriers to discharge: Time since onset, safety awareness, past medical history Review of Systems: General: Appetite is good Respiratory: Denies shortness of breath, denies cough Cardiovascular: Denies chest pain, denies palpitations Genitourinary: Denies suprapubic pain or tenderness, no dysuria Musculoskeletal: No uncontrolled pain Psychiatric: No reported change in cognition Vitals Signs(Last 24 hrs)__Last Charted Minimum Ma ximum Temp36.5(OCT 24 06:00)36.5(OCT 24 06:00)36.6(OCT 23 10:03) Heart Rate60(OCT 23 21:45)60(OCT 23 21:45)85(OCT 23 10:21) IGD425(OCT 24 06:00)108(OCT 23 10:03)124(OCT 24 06:00) DBP62(OCT 24 06:00)L 58(OCT 23 10:03)62(OCT 24 06:00) Physical Exam: General: No acute distress, alert and oriented. Sitting in dining room eating breakfast, denies any coughing or choking episodes. Appears comfortable, and does not appear in acute pain. Pleasant and cooperative. Good eye contact, flat affect. Sling in place left upper extremity. Respiratory: Lungs are clear to auscultation. Respirations are unlabored on room air. No conversational dyspnea. Cardiovascular: Regular rate and rhythm. No bradycardia, tachycardia, or heart murmur Gastrointestinal: Abdomen is soft nontender nondistended. Bowel sounds normal x4. Arterial: 2/4 distal pulses bilateral lower extremities Edema: No edema bilateral lower extremities. No calf tenderness. Musculoskeletal: Mild polyarthritis Spinal curvatures: Increased thoracic kyphosis. No spinal or paraspinal tenderness Weight bearing status/transfers/ADLs: Nonweightbearing to the left upper extremity. Weightbearing as tolerated to the bilateral lower extremities. Ambulated 100 feet with gait belt. Touch assist for walking 10 feet on uneven surfaces. Independent for sit to stand. Independent for chair to bed transfer. Independent for toileting transfer. Touch assist for walking 150 feet. Independent for toileting hygiene. Independent for toileting transfer. Skin: Diffuse scattered ecchymosis to the left upper extremity/left shoulder. Sling in place to the left upper extremity, neurovascular check intact Neurological: Cranial nerves intact 4+/5 right upper extremity strength Left upper extremity strength not tested 4/5 bilateral lower extremity strength Left hand grasp not tested Normal right hand grasp Normal shoulder range of motion bilaterally 1/4 right upper extremity reflex Left upper extremity reflex not tested 1/4 bilateral lower extremity reflexes Psychiatric: A&O. Pleasant and cooperative. Mood and cognition stable. Assessment: Left reverse total shoulder replacement. Hypertension hyperlipidemia anxiety early dementia urine retention Plan: continue acute rehabilitation physical and Occupational Therapy services gait mobility ADL self-care and strengthening. Daily Aricept. BuSpar twice daily. Supportive counseling. Plan is home alone with distant supervision and home care services. Orthopedic follow-up November 02. Plan discharge date October 28 Risks/benefits of meds, treatments considered. Therapy notes reviewed. Discussed with staff. PMH/ reviewed and unchanged Note: This dictation was created with assistance of voice recognition software. Phonic and/or minor grammatical errors may exist. Medications reviewed and are up to date IYou LPN, am scribing for, and in the presence of Dr. Chantell VILLA. I, Dr. Chantell VILLA , personally performed the services described in this documentation, as described by You Reyes LPN in my presence and it is both accurate and complete. Digitally Signed by QUINTIN KAY DO on 10/24/2024 04:40 PM Justin Leon 10-23-2024 Note Subjective Patient states he is doing okay this morning. He denies any uncontrolled pain and states pain remains well-managed with the scheduled Tylenol and the as needed oxycodone. Denies any lightness, dizziness, or headache. Denies any shortness breath or conversational dyspnea sleepiness comfortable. Reports bowels are moving and states he is sleeping well at night. Objective General: No acute distress, alert and oriented x 4. Sitting up in wheelchair, appears comfortable, and does not appear in acute pain. Pleasant and cooperative. Good eye contact with flat affect. Cognition cognitive impairment at baseline, no increased confusion HEENT: EOMI, MMM, and no nasal drainage Respiratory: Lungs are clear to auscultation. Respirations are unlabored on room air. No cough, congestion, or conversational dyspnea Cardiovascular: Heart rate regular. No bradycardia, tachycardia, or heart murmur Edema/Varicosities of Extremities: No edema to the bilateral extremities. No calf tenderness. Gastrointestinal: Bowel sounds are present in 4 quadrants. Abdomen is nontender, soft, and nondistended. Genitourinary: No suprapubic tenderness, no CVA tenderness, no bladder distention. VITALS [id number]( kg) 10/23 17:36----65------10/17 92.8 10/23 10:21----85------10/17 94.0 10/23 10:0336.6--[id number] 94.0 10/23 00:3036.6--[id number] 10/22 16:36----62----RA 24 Hr Tmax: 36.6 at 10/23 10:03 36 Hr Tmax: 36.6 at 10/23 10:03 Vital Signs are the last 5 in the past 48 hours. Weights display the last 5 within 7 days. Initial Wt: 10/16 94.0 kg 207 lb Current Wt: 10/17 92.8 kg 204 lb LABS No 36 Hour Lab Data Medications Active Inpt Meds: acetaminophen Start: 10/17/24 19:17:00 EST, Dose = 1,000 mg, = 2 tab(s), Oral, q8h, 0, 10/17/24 18:48:00 EST aspirin (aspirin 81 mg oral delayed release tablet) Start: 10/17/24 21:00:00 EST, Dose = 81 mg, = 1 tab(s), Oral, BID, 14 day(s), Stop: 11/01/24 9:00:00 EST, 0, 10/17/24 18:48:00 EST busPIRone Start: 10/17/24 21:00:00 EST, Dose = 10 mg, = 1 tab(s), Oral, BID, 10/17/24 18:50:00 EST cyanocobalamin (Vitamin B12) Start: 10/17/24 19:30:00 EST, Dose = 1,000 mcg, = 2 tab(s), Oral, qDay, 0 dilTIAZem (Cardizem CD 120 mg/24 hours oral capsule, extended release) Start: 10/17/24 19:28:00 EST, Dose = 120 mg, = 1 cap(s), Oral, qAM, Hold if SBP (mmHg) < 100, 0 docusate-senna (docusate-senna 50 mg-8.6 mg oral tablet) Start: 10/17/24 20:00:00 EST, Dose = 2 tab(s), Tab, Oral, BID, 10/17/24 18:49:00 EST donepezil Start: 10/17/24 21:00:00 EST, Dose = 10 mg, = 1 tab(s), Oral, qHS, 10/17/24 18:49:00 EST finasteride (finasteride 5 mg oral tablet) Start: 10/17/24 19:20:00 EST, Dose = 5 mg, = 1 tab(s), Oral, qDay, 0, 10/17/24 18:49:00 EST folic acid Start: 10/17/24 19:20:00 EST, Dose = 1 mg, = 1 tab(s), Oral, BIDM, 0, 10/17/24 18:49:00 EST lisinopril Start: 10/17/24 19:21:00 EST, Dose = 5 mg, = 1 tab(s), Oral, Daily, Hold if SBP (mmHg) < 120, 0, 10/17/24 18:49:00 EST magnesium oxide Start: 10/17/24 19:21:00 EST, Dose = 400 mg, = 1 tab(s), Oral, BID, 0, 10/17/24 18:49:00 EST meloxicam (Mobic) Start: 10/17/24 21:00:00 EST, Dose = 7.5 mg, = 1 tab(s), Oral, BID, 0, 10/17/24 19:26:00 EST mesalamine (mesalamine 800 mg oral delayed release tablet) Start: 10/17/24 19:21:00 EST, Dose = 2.4 gram(s), = 3 tab(s), Oral, qDay, Patient's Own Med, 0, 10/17/24 18:49:00 EST metoprolol (metoprolol tartrate 50 mg oral tablet) Start: 10/17/24 19:36:00 EST, Dose = 50 mg, = 1 tab(s), Oral, BID, Hold if SBP (mmHg) < 100, 0, 10/17/24 18:49:00 EST montelukast Start: 10/17/24 22:00:00 EST, Dose = 10 mg, = 1 tab(s), Oral, qPM, 0, 10/17/24 18:50:00 EST pantoprazole Start: 10/18/24 7:00:00 EST, Dose = 40 mg, = 1 tab(s), Oral, BIDAC, 0, 10/17/24 18:49:00 EST primidone Start: 10/17/24 21:00:00 EST, Dose = 250 mg, = 1 tab(s), Oral, BID, 10/17/24 18:50:00 EST sertraline Start: 10/17/24 19:24:00 EST, Dose = 200 mg, = 2 tab(s), Oral, qDay, 0, 10/17/24 18:50:00 EST sucralfate Start: 10/17/24 21:00:00 EST, Dose = 1 gram(s), = 1 tab(s), Oral, BID, 0, 10/17/24 18:50:00 EST tamsulosin Start: 10/17/24 19:25:00 EST, Dose = 0.4 mg, = 1 cap(s), Oral, qDay, 0, 10/17/24 18:50:00 EST ubiquinone (Coenzyme Q10) Start: 10/17/24 19:25:00 EST, Dose = 100 mg, = 1 cap(s), Oral, qDay, 0, 10/17/24 18:51:00 EST Active PRN Meds: Al hydroxide/Mg hydroxide/simethicone (Maalox) Start: 10/17/24 19:11:00 EST, Dose = 30 mL, Susp, Oral, q6h, PRN, Indigestion, 0, 10/17/24:11:00 EST acetaminophen (Tylenol) Start: 10/17/24:11:00 EST, Dose = 650 mg, = 2 tab(s), Oral, q4h, PRN, Pain, scale 1-10, 0, 10/17/24:11:00 EST albuterol Start: 10/17/24 19:31:00 EST, Dose = 2.5 mg, = 3 mL, Inhalation, q4hRT, PRN, Shortness of breath or wheezing, 0 docusate (Colace) Start: 10/17/24:11:00 EST, Dose = 100 mg, = 1 cap(s), Oral, BID, PRN, Constipation, 10/17/24:11:00 EST glucagon (GlucaGen) Start: 10/17/24::00 EST, Dose = 1 mg, = 1 mL, Intramuscular, AsDirected, PRN, Hypoglycemia, if unresponsive, NO IV ACCESS & blood glucose less than 70mg/dL. If still unresponsive after 2 minutes, REPEAT x1., 0, 10/17/24:11:00 EST glucose (Dextrose 50% IV Push) Start: 10/17/24:11:00 EST, Dose = 12.5 gram(s), = 25 mL, IV Push, AsDirected, PRN, Hypoglycemia, if unresponsive WITH IV ACCESS & blood glucose less than 70mg/dL. If still unresponsive after 2 minutes, REPEAT x1., 0, 10/17/24:11:00 EST glucose Start: 10/17/24:11:00 EST, Dose = 16 gram(s), = 4 tab(s), Chewed, AsDirected, PRN, Hypoglycemia, DIABETIC PATIENT if responsive & blood glucose less than 70mg/dL. If blood glucose less than 70mg/dL after 15 minutes, REPEAT x1., 0, 10/17/24 19:1... glycerin (glycerin adult rectal suppository) Start: 10/17/24 19:11:00 EST, Dose = 1 supp, Supp, Rectal, Daily, PRN, Constipation, 10/17/24 19:11:00 EST magnesium hydroxide (Milk of Magnesia) Start: 10/17/24 19:11:00 EST, Dose = 30 mL, Susp-Oral, Oral, qDay, PRN, Constipation, 10/17/24 19:11:00 EST oxyCODONE (oxyCODONE 5 mg oral tablet ( IMMEDIATE release )) Start: 10/17/24 20:11:00 EST, Dose = 10 mg, = 2 tab(s), Oral, q6hr, PRN, as needed for pain, 10/17/24 20:11:00 EST oxyCODONE (oxyCODONE 5 mg oral tablet ( IMMEDIATE release )) Start: 10/17/24 20:10:00 EST, Dose = 5 mg, = 1 tab(s), Oral, q6hr, PRN, as needed for pain, 10/17/24 20:10:00 EST polyethylene glycol 3350 (Miralax Powder Packet) Start: 10/17/24 19:11:00 EST, Dose = 17 gram(s), = 15 mL, Oral, qDay, PRN, Constipation, 10/17/24 19:11:00 EST senna Start: 10/17/24 18:50:00 EST, Dose = 8.6 mg, = 1 tab(s), Oral, qDay, PRN, Constipation, 10/17/24 18:50:00 EST One Time Meds: None Active IV Meds: None Problems (6) Arthritis (0586875) Colitis (440046448) Fall (on) (from) other stairs and steps, initial encounter ([id number]) HTN (hypertension) (8075215420) Macular degeneration (8088049731) Occasional tremors (82090121) ASSESSMENT/PLAN: Left shoulder dislocation failed conservative treatment now status post left reverse total shoulder arthroplasty. Ordered to be nonweightbearing to the left upper extremity. Follow-up with orthopedic 10/25 Acute postoperative pain on scheduled Tylenol plus meloxicam with oxycodone 1 or 2 tablet as needed for breakthrough pain. Denies any uncontrolled pain Opiate induced constipation with history of chronic colitis he is on mesalamine plus senna S, as needed bowel medications are in place with close reevaluation of symptomatology Acute gait dysfunction with mobility. Working with PT and OT services Acute urinary retention with history of BPH, continue Flomax plus finasteride, Chua placed for retention he does follow with urology, voiding trial initiated 10/20 History of Parkinson's versus essential tremor, he is on primidone, reevaluating symptoms, currently appear to be well-controlled. Propranolol discontinued per neurology recommendation. No tremor noted History of mild cognitive impairment on Aricept, alert and oriented Isolated soft blood pressures with history of hypertension continuing lisinopril plus metoprolol and diltiazem History of Crohn's continue with mesalamine Hypomagnesemia supplemented Anxiety BuSpar, mood and cognition stable. DVT prophylaxis aspirin 81 twice daily x 14 day, no active bleeding Depression Zoloft, mood and cognition stable GERD continue Carafate plus Protonix Trial of void to be initiated 10/20, bladder scans ranging 0-566 mL. Did require straight catheterization twice over the weekend. Will continue monitor bladder scans. States he is fine without difficulties. Holding parameters on Cardizem, metoprolol and lisinopril. Monitoring blood pressures closely, encouraging oral hydration. Patient asymptomatic. Blood pressures currently stable off of the propranolol Continues work with therapy services, goal discharge date set for 10/28. Continue to work with social media content manager for safe discharge planning. Medications reviewed and up to date This document was transcribed using dictation software and may contain typographical errors. Juan Velásquez RN, am scribing for, and in the presence of Jessica Gonzalez APRN. Jessica Velásquez APRN, personally performed the services described in this documentation, as scribed by, Juan Clemente RN in my presence and it is both accurate and complete. Digitally Signed by DANUTA GONZALEZ APRN-JONATHON on 10/24/2024 01:46 PM Justin Gillespien 10-23-2024 Note ORIGINAL EXAMINATION: 3 XRAY VIEWS OF THE LEFT [id number]/25/2024 12:20 pm COMPARISON: None HISTORY: ORDERING SYSTEM PROVIDED HISTORY: Reason for Exam: left shoulder pain s/p fall, surgery, FINDINGS: There is a reverse shoulder prosthesis that appears to have satisfactory alignment. No periprosthetic fracture, dislocation or other complication is evident. Normal AC joint. Overall imaging is limited by technique and body habitus. IMPRESSION: No obvious periprosthetic fracture or dislocation is seen. Interpreted by: Subhash Nayak MD Preliminary Report By: Subhash Nayak MD Electronically signed By Subhash Nayak MD Dictated Date: 10/23/2024 3:52:13 PM Prelim Date: 10/23/2024 3:53:17 PM Sign Date: 10/23/2024 3:53:17 PM Ordering Provider: DANUTA Leon 10-23-2024 Physical medicine and rehab Progress note Rehab Note Chief Complaint: Seeing this patient for reevaluation of therapy progress, reverse left shoulder arthroplasty History of Present Illness: Seeing this patient for reevaluation of therapy and total reverse left shoulder arthroplasty. Patient participates in acute inpatient rehabilitation with PT and OT services. 83-year-old male presented to the emergency room with ongoing left shoulder pain following recent dislocation in May. Had multiple failed conservative treatments and underwent a planned left reverse total shoulder arthroplasty on 10/[address] Francisco. Postoperatively he did suffer some urinary retention and required straight catheterization and resulting in Chua catheter placement. Orthopedics ordered patient to be nonweightbearing to the left lower extremity with sling in place at all times. He was started on aspirin 81 mg twice daily for DVT prophylaxis and is to complete a 14-day course. He was placed on as needed oxycodone, scheduled Tylenol, and meloxicam for pain control. Past medical history includes history of Parkinson's disease, essential tremor, arthritis, colitis, Crohn's, hypertension, and macular degeneration. Today patient is in hallway walking with therapy, reports he is doing well and gaining his strength back, states balance is improving. Reports bowels are moving without difficulty, last second bowel movement 10/21. Reports pain is tolerable with current pain regiment, continues with Tylenol 1000 mg every 8 hours scheduled, does have as needed Tylenol and oxycodone available for breakthrough pain which she is utilizing with good effect. Discussed with nursing. Medications reviewed. Goal is to discharge home alone with home health care services. Goal discharge date for 10/28/2024 Medication List Active Medications Ordered acetaminophen: 650 mg, 2 tab(s), Oral, q4h, PRN: Pain, scale 1-10. acetaminophen: 1,000 mg, 2 tab(s), Oral, q8h. albuterol: 2.5 mg, 3 mL, Inhalation, q4hRT, PRN: Shortness of breath or wheezing. Al hydroxide/Mg hydroxide/simethicone: 30 mL, Oral, q6h, PRN: Indigestion. aspirin: 81 mg, 1 tab(s), Oral, BID. busPIRone: 10 mg, 1 tab(s), Oral, BID. cyanocobalamin: 1,000 mcg, 2 tab(s), Oral, qDay. dilTIAZem: 120 mg, 1 cap(s), Oral, qAM. docusate: 100 mg, 1 cap(s), Oral, BID, PRN: Constipation. docusate-senna: 2 tab(s), Oral, BID. donepezil: 10 mg, 1 tab(s), Oral, qHS. finasteride: 5 mg, 1 tab(s), Oral, qDay. folic acid: 1 mg, 1 tab(s), Oral, BIDM. glucagon: 1 mg, 1 mL, Intramuscular, AsDirected, PRN: Hypoglycemia. glucose: 12.5 gram(s), 25 mL, IV Push, AsDirected, PRN: Hypoglycemia. glucose: 16 gram(s), 4 tab(s), Chewed, AsDirected, PRN: Hypoglycemia. glycerin: 1 supp, Rectal, Daily, PRN: Constipation. lisinopril: 5 mg, 1 tab(s), Oral, Daily. magnesium hydroxide: 30 mL, Oral, qDay, PRN: Constipation. magnesium oxide: 400 mg, 1 tab(s), Oral, BID. meloxicam: 7.5 mg, 1 tab(s), Oral, BID. mesalamine: 2.4 gram(s), 3 tab(s), Oral, qDay. metoprolol: 50 mg, 1 tab(s), Oral, BID. montelukast: 10 mg, 1 tab(s), Oral, qPM. oxyCODONE: 10 mg, 2 tab(s), Oral, q6hr, PRN: as needed for pain. oxyCODONE: 5 mg, 1 tab(s), Oral, q6hr, PRN: as needed for pain. pantoprazole: 40 mg, 1 tab(s), Oral, BIDAC. polyethylene glycol 3350: 17 gram(s), 15 mL, Oral, qDay, PRN: Constipation. primidone: 250 mg, 1 tab(s), Oral, BID. senna: 8.6 mg, 1 tab(s), Oral, qDay, PRN: Constipation. sertraline: 200 mg, 2 tab(s), Oral, qDay. sucralfate: 1 gram(s), 1 tab(s), Oral, BID. tamsulosin: 0.4 mg, 1 cap(s), Oral, qDay. ubiquinone: 100 mg, 1 cap(s), Oral, qDay. Documented acetaminophen: 1,000 mg, 2 tab(s), Oral, q8h. albuterol: 2 puff(s), Inhalation, q4h, PRN: as needed for shortness of breath or wheezing. ascorbic acid/chondroitin/glucosa/erica: 900 mg, Oral, qDay, 0 Refill(s). aspirin: 81 mg, 1 tab(s), Oral, BID, for 14 day(s). aspirin: 81 mg, 1 tab(s), Oral, BID, for 8 day(s). aspirin: 81 mg, 1 tab(s), Oral, qDay, for 30 day(s). busPIRone: 10 mg, 1 tab(s), Oral, BID. docusate-senna: 2 tab(s), Oral, BID. donepezil: 10 mg, 1 tab(s), Oral, qHS. finasteride: 5 mg, 1 tab(s), Oral, qDay. folic acid: 1 mg, 1 tab(s), Oral, BIDM. lansoprazole: 30 mg, 1 cap(s), Oral, BID. lisinopril: 5 mg, 1 tab(s), Oral, Daily. magnesium oxide: 400 mg, 1 tab(s), Oral, BID. meloxicam: 7.5 mg, 1 tab(s), Oral, BID. mesalamine: 2.4 gram(s), 2 tab(s), Oral, qDay, 0 Refill(s). metoprolol: 50 mg, 1 tab(s), Oral, BID. Misc Medication: diltiazem HCL 120 mg/24 hr, Oral, qAM, 0 Refill(s). Misc Medication: cyanocobalamin 1000 mcg/ml drops - 1000 mcg, Oral, Daily, 0 Refill(s). Misc Medication: Vitamins A,C, L-vcxc-esadfc ER 1 tablet, Oral, Daily, 0 Refill(s). Misc Medication: nukvrkrz-cze-SX-lycopen-lutein 1 tab, Oral, Daily, 0 Refill(s). montelukast: 10 mg, 1 tab(s), Oral, qPM, 0 Refill(s). oxyCODONE: 1-2 tabs, Oral, q4h, for 7 day(s), for pain 4-6/10, PRN: for pain, 0 Refill(s). primidone: 250 mg, 1 tab(s), Oral, BID. propranolol: 40 mg, 1 tab(s), Oral, TID. senna: 8.6 mg, 1 tab(s), Oral, qDay, PRN: as needed for constipation, 100 tab(s), 0 Refill(s). sertraline: 200 mg, 2 tab(s), Oral, qDay. sucralfate: 1 gram(s), 1 tab(s), Oral, BID. tamsulosin: 0.4 mg, 1 cap(s), Oral, qDay, 30 cap(s), 0 Refill(s). ubiquinone: 100 mg, Oral, qDay. Medications Inactivated in the Last 72 Hours cyanocobalamin: Miscellaneous, Once. docusate-senna: Miscellaneous, Once. Social history: Social support: Lives alone Home set-up: Single level home, first-floor bedroom/bathroom. Laundry basement Barriers to discharge: Time since onset, safety awareness, past medical history Review of Systems: General: Appetite is good Respiratory: Denies shortness of breath Cardiovascular: Denies chest pain Musculoskeletal: No uncontrolled pain Psychiatric: No reported change in cognition Vitals Signs(Last 24 hrs)__Last Charted Minimum Ma ximum Temp36.6(OCT 23:30)36.6(OCT 23:30)36.4(OCT 22 08:57) Heart Rate60(OCT 23:30)60(OCT 22 08:57)62(OCT 22 16:31) [id number](OCT 23:30)109(OCT 22:31)118(OCT 22 08:57) DBP62(OCT 23:30)L 58(OCT 22 08:57)62(OCT 23:30) Physical Exam: General: No acute distress, alert and oriented. Up in hallway walking with therapy. Appears controlled, and does not appear in acute pain. Pleasant and cooperative. Good eye contact, flat affect. Sling in place left upper extremity. Respiratory: Lungs are clear to auscultation. Respirations are unlabored on RA. No conversational dyspnea. Cardiovascular: Regular rate and rhythm. No bradycardia, tachycardia, or heart murmur Gastrointestinal: Abdomen is soft nontender nondistended. Bowel sounds normal x4. Arterial: 2/4 distal pulses bilateral lower extremities Edema: No edema bilateral lower extremities. No calf tenderness. Musculoskeletal: Mild polyarthritis Spinal curvatures: Increased thoracic kyphosis. No spinal or paraspinal tenderness Weight bearing status/transfers/ADLs: Nonweightbearing to the left upper extremity. Weightbearing as tolerated to the bilateral lower extremities. Ambulated 300 feet with gait belt. Touch assist for walking 10 feet on uneven surfaces. Independent for sit to stand. Independent for chair to bed transfer. Independent for toileting transfer. Touch assist for walking 50 feet with 2 turns. Touch assist for walking 150 feet. Independent for toileting hygiene. Independent for toileting transfer. Skin: Diffuse scattered ecchymosis to the left upper extremity/left shoulder. Sling in place to the left upper extremity, neurovascular check intact Neurological: Cranial nerves intact 4+/5 right upper extremity strength Left upper extremity strength not tested 4/5 bilateral lower extremity strength Left hand grasp not tested Normal right hand grasp Normal shoulder range of motion bilaterally 1/4 right upper extremity reflex Left upper extremity reflex not tested 1/4 bilateral lower extremity reflexes Psychiatric: Alert. Oriented. Pleasant. Cooperative. Assessment: Left reverse total shoulder replacement. Osteoarthritis. History of BPH hypertension constipation Plan: Acute rehabilitation physical and occupational therapy services. Nonweightbearing left arm. Gait mobility ADL self-care and strengthening. Schedule docusate senna. As needed Tylenol and oxycodone for pain. Current plan Home October 28 with home care services. Encourage continued slow weight loss range of motion and strengthening exercises Arrange orthopedic follow-up. Risks/benefits of meds, treatments considered. Therapy notes reviewed. Discussed with staff. PMH/SH reviewed and unchanged Note: This dictation was created with assistance of voice recognition software. Phonic and/or minor grammatical errors may exist. Medications reviewed and are up to date IYou LPN, am scribing for, and in the presence of Dr. Chantell VILLA. I, Dr. Chantell VILLA , personally performed the services described in this documentation, as described by You Reyes LPN in my presence and it is both accurate and complete. Digitally Signed by QUINTIN KAY DO on 10/23/2024 12:28 PM Justin Leon 10-18-2024 Evaluation + Plan note Extrac nikki from: Title:Clinical Document Author:QUINTIN KAY Date:10/18/24 Acute Inpatient Rehab Histor y and Physical Date of Service: 10/18/2024 Date of Admission: 10/17/2024 Attending Physician: Dr. [facility] 08.9 Etiologic Diagnosis Other Ortho, reverse left total shoulder History of Present Illness This is an 83-year-old male admitted to [facility] inpatient rehab unit with recent hospitalization at [facility] from 10/12 - 10/17. In May, patient suffered from shoulder and bicep dislocation. Continue to have uncontrolled pain despite steroid injections. Underwent left shoulder total reverse surgery on 10/12. Patient is nonweightbearing to left upper extremity. Active range of motion from elbow to hand permitted. Of note, patient was evaluated for Parkinson's versus tremor in the past, all results were inconclusive of patient having Parkinson's. He is being actively treated for tremors. Patient did have issues with urinary retention, did have a Chua catheter placed during stay, is present at discharge. Patient was deemed medically stable and transferred to [facility] inpatient rehab unit for physical and occupational therapy as well as medical supervision. Past medical history includes arthritis, colitis, Crohn's, macular degeneration, hypertension, tremors, and depression. Due to the fact that he had impairments in gait mobility ADLs and self-care as well as medical comorbidities, decision was made to admit him to acute physical rehabilitation unit. Prior to hospitalization, patient was living at home, in a condo. Independent with care. Now requiring moderate assistance. Medication List Active Medications Ordered acetaminophen: 650 mg, 2 tab(s), Oral, q4h, PRN: Pain, scale 1-10. acetaminophen: 1,000 mg, 2 tab(s), Oral, q8h. albuterol: 2.5 mg, 3 mL, Inhalation, q4hRT, PRN: Shortness of breath or wheezing. Al hydroxide/Mg hydroxide/simethicone: 30 mL, Oral, q6h, PRN: Indigestion. aspirin: 81 mg, 1 tab(s), Oral, BID. busPIRone: 10 mg, 1 tab(s), Oral, BID. cyanocobalamin: 1,000 mcg, 2 tab(s), Oral, qDay. dilTIAZem: 120 mg, 1 cap(s), Oral, qAM. docusate: 100 mg, 1 cap(s), Oral, BID, PRN: Constipation. docusate-senna: 2 tab(s), Oral, BID. donepezil: 10 mg, 1 tab(s), Oral, qHS. finasteride: 5 mg, 1 tab(s), Oral, qDay. folic acid: 1 mg, 1 tab(s), Oral, BIDM. glucagon: 1 mg, 1 mL, Intramuscular, AsDirected, PRN: Hypoglycemia. glucose: 12.5 gram(s), 25 mL, IV Push, AsDirected, PRN: Hypoglycemia. glucose: 16 gram(s), 4 tab(s), Chewed, AsDirected, PRN: Hypoglycemia. glycerin: 1 supp, Rectal, Daily, PRN: Constipation. lisinopril: 5 mg, 1 tab(s), Oral, Daily. magnesium hydroxide: 30 mL, Oral, qDay, PRN: Constipation. magnesium oxide: 400 mg, 1 tab(s), Oral, BID. meloxicam: 7.5 mg, 1 tab(s), Oral, BID. mesalamine: 2.4 gram(s), 3 tab(s), Oral, qDay. metoprolol: 50 mg, 1 tab(s), Oral, BID. montelukast: 10 mg, 1 tab(s), Oral, qPM. oxyCODONE: 10 mg, 2 tab(s), Oral, q6hr, PRN: as needed for pain. oxyCODONE: 5 mg, 1 tab(s), Oral, q6hr, PRN: as needed for pain. pantoprazole: 40 mg, 1 tab(s), Oral, BIDAC. .PharmacyCommunication: Propranolol clarification, Miscellaneous, qDay. polyethylene glycol 3350: 17 gram(s), 15 mL, Oral, qDay, PRN: Constipation. primidone: 250 mg, 1 tab(s), Oral, BID. propranolol: 40 mg, 1 tab(s), Oral, TID. senna: 8.6 mg, 1 tab(s), Oral, qDay, PRN: Constipation. sertraline: 200 mg, 2 tab(s), Oral, qDay. sucralfate: 1 gram(s), 1 tab(s), Oral, BID. tamsulosin: 0.4 mg, 1 cap(s), Oral, qDay. ubiquinone: 100 mg, 1 cap(s), Oral, qDay. Documented acetaminophen: 1,000 mg, 2 tab(s), Oral, q8h. albuterol: 2 puff(s), Inhalation, q4h, PRN: as needed for shortness of breath or wheezing. ascorbic acid/chondroitin/glucosa/erica: 900 mg, Oral, qDay, 0 Refill(s). aspirin: 81 mg, 1 tab(s), Oral, BID, for 14 day(s). aspirin: 81 mg, 1 tab(s), Oral, BID, for 8 day(s). aspirin: 81 mg, 1 tab(s), Oral, qDay, for 30 day(s). busPIRone: 10 mg, 1 tab(s), Oral, BID. docusate-senna: 2 tab(s), Oral, BID. donepezil: 10 mg, 1 tab(s), Oral, qHS. finasteride: 5 mg, 1 tab(s), Oral, qDay. folic acid: 1 mg, 1 tab(s), Oral, BIDM. lansoprazole: 30 mg, 1 cap(s), Oral, BID. lisinopril: 5 mg, 1 tab(s), Oral, Daily. magnesium oxide: 400 mg, 1 tab(s), Oral, BID. meloxicam: 7.5 mg, 1 tab(s), Oral, BID. mesalamine: 2.4 gram(s), 2 tab(s), Oral, qDay, 0 Refill(s). metoprolol: 50 mg, 1 tab(s), Oral, BID. Misc Medication: diltiazem HCL 120 mg/24 hr, Oral, qAM, 0 Refill(s). Misc Medication: cyanocobalamin 1000 mcg/ml drops - 1000 mcg, Oral, Daily, 0 Refill(s). Misc Medication: Vitamins A,C, P-wyal-epkurt ER 1 tablet, Oral, Daily, 0 Refill(s). Misc Medication: agvrxpfe-rwt-VQ-lycopen-lutein 1 tab, Oral, Daily, 0 Refill(s). montelukast: 10 mg, 1 tab(s), Oral, qPM, 0 Refill(s). oxyCODONE: 1-2 tabs, Oral, q4h, for 7 day(s), for pain 4-6/10, PRN: for pain, 0 Refill(s). primidone: 250 mg, 1 tab(s), Oral, BID. propranolol: 40 mg, 1 tab(s), Oral, TID. senna: 8.6 mg, 1 tab(s), Oral, qDay, PRN: as needed for constipation, 100 tab(s), 0 Refill(s). sertraline: 200 mg, 2 tab(s), Oral, qDay. sucralfate: 1 gram(s), 1 tab(s), Oral, BID. tamsulosin: 0.4 mg, 1 cap(s), Oral, qDay, 30 cap(s), 0 Refill(s). ubiquinone: 100 mg, Oral, qDay. Medications Inactivated in the Last 72 Hours albuterol: 2 puff(s), Inhalation, q4h, PRN: Shortness of breath or wheezing. ascorbic acid/chondroitin/glucosa/erica: 900 mg, Oral, qDay. meloxicam: 7.5 mg, 1 tab(s), Oral, BID. Misc Medication: zurkeqfb-rxp-RJ-lycopen-lutein 1 tab, Oral, Daily. Misc Medication: cyanocobalamin 1000 mcg/ml drops - 1000 mcg, Oral, Daily. Misc Medication: diltiazem HCL 120 mg/24 hr, Oral, qAM. Misc Medication: Vitamins A,C, H-uzik-hsrepo ER 1 tablet, Oral, Daily. Review of Systems Constitutional: Denies weight changes fever or chills HEENT: Denies vision changes or dry eyes Respiratory: Denies shortness of breath, cough, conversational dyspnea Cardiovascular: Denies chest pain, palpitations, uncontrolled blood pressure Gastrointestinal: Denies nausea vomiting or diarrhea Genitourinary: Denies dysuria or urinary retention endorses urinary retention has Chua catheter Neurological: Denies any cognitive deficits. Endorses faint tremor Musculoskeletal: Denies any joint or musculoskeletal pain Skin: Denies rashes or erythema Endocrine: Denies hot or cold intolerance. No hypoglycemia. Psychiatric: Denies changes in mental status. Allergic/immunologic: Denies environmental allergies or immune dysfunction Past Medical History: Arthritis Colitis Crohn's disease Macular degeneration Hypertension Essential tremors Depression Procedure/Surgical History: Total shoulder replacement: 10/12/24 Social History: Tobacco Details: Nicotine Use: Never (less than 100 in lifetime). Denies alcohol or recreational drug use Family History: Patient denies any pertinent family history Allergies: Atorvastatin, Inderal, penicillins, Singulair PCP: Dr Ramos BMI: 29 Physical Exam General appearance: Alert orient x3, no apparent distress Head: Normocephalic no evidence of trauma EENT: Pupils equal and reactive to light and accommodation, no erythema. Ears with no external lesions or discharge. Nose clear, nares patent, no discharge. Throat normal healthy definition, no redness or erythema. Neck: Trachea midline. No lymphatic adenopathy Cardiac: Regular rate and rhythm, no rubs or murmurs Lungs: Clear to auscultation, no adventitious sounds, good aeration Abdomen: Soft, nontender, no organomegaly or rebound tenderness. Positive bowel sounds Musculoskeletal: Intact range of motion, no erythema, no polyarthric changes Extremities: No edema or calf tenderness Neurological: Cranial nerves intact. Mild faint intention tremor to hands. Skin: Surgical incision to left shoulder dry and intact. No signs of infection or drainage. Psychiatric: Mood good. No anxiety or depression Aqfyxhcyiko19.2 (05:10) Systolic Blood Ibyhnkeq31 (05:10) Diastolic Blood Zegiqhzr68 (05:10) Pulse60 (05:10) ThX171 (05:10) Respiratory RateNo result No 36hr Lab Data Assessment/Plan Assessment: Reverse left total shoulder replacement. History of polyarthritis colitis Crohn's disease macular degeneration hypertension essential and resting tremor and BPH with retention. Plan: Acute rehabilitation with physical and occupational therapy services. Gait mobility ADLs self-care and strengthening. Sertraline for history depression. Bowel routine with scheduled senna. Oxycodone or Tylenol for breakthrough pain. Primidone and propranolol for tremors with therapeutic exercises. Nonweightbearing left arm in sling pending Ortho follow-up. Team staffing regarding further goals plan of care and length of stay. Condition complex, medically stable Post Admission Physician Evaluation Medical reconciliation performed. Old chart reviewed. Patient status on admission to rehab is medically stable but medically complex. Appropriate for admission to inpatient rehab facility due to need for 24-hour nursing and medical management in a hospital-based setting. Comparison with information on preadmission screening findings information to be consistent. Diagnoses to be monitored and treated include; Polyarthritis, impaired gait, debility, pain control, essential tremors Rehabilitation physician to direct team staffing. See daily on rehabilitation rounds. Plan is for acute rehab with PT OT and speech-language therapy rehab nursing social work and nutrition for an acute interdisciplinary team rehab approach. Will work on gait training, ADLs, self-care, and strengthening, bowel and bladder program. DVT prophylaxis and medical management of comorbidities Minimal 3 hours/day 5-6 days/week of rehabilitation services Goal is for discharge home at a modified independent level for all gait mobility ADLs and self-care skills, skin intact, medically stable, optimal cardiopulmonary status, free of infection, continent of bowel bladder, adequate pain management and comfort, complete discharge disposition home set up patient and family training. Medical Comorbidities at the Time of Admission Arthritis, colitis, Crohn's disease, macular degeneration, hypertension, tremors, depression Barriers to Discharge Functional medical impairments Consulting Physician Dr. Yip Estimated Length of Stay 2-3 weeks Medications are reviewed and up-to-date This document was transcribed using dictation software and may contain typographical errors. Ivan Velásquez RN, am scribing for , and in the presence of Dr. Chantell VILLA. IDr. Chantell DO, personally performed the services described in this documentation, as scribed by, Ivan Ordonez RN in my presence and it is both accurate and complete. [facility] 11-20-2024 Physical medicine and rehab History and physical note Acute Inpatient Rehab History and Physical Date of Service: 10/18/2024 Date of Admission: 10/17/2024 Attending Physician: Dr. [facility] 08.9 Etiologic Diagnosis Other Ortho, reverse left total shoulder History of Present Illness This is an 83-year-old male [facility] [place] [facility] In May, patient suffered from shoulder and bicep dislocation.Continue to have uncontrolled pain despite steroid injections. Underwent left shoulder total reverse surgery on 10/12. Patient is nonweightbearing to left upper extremity. Active range of motion fromelbow to hand permitted. Of note, patient was evaluated for Parkinson's versus tremor in the past, all results were inconclusive of patient having Parkinson's. He is being actively treated for tremors. Patient did have issues with urinary retention, did have a Chua catheter placed during stay, is present at discharge. Patient was deemed medically stable and [facility] for physical and occupational therapy as well as medical supervision. Past medical history includes arthritis, colitis, Crohn's, macular degeneration, hypertension, tremors, and depression. Due to the fact that he had impairments in gait mobility ADLs and self-care as well as medical comorbidities, decision was made to admit him to acute physical rehabilitation unit. Prior to hospitalization, patient was living at home, in a condo. Independent with care. Now requiring moderate assistance. Medication List Active Medications Ordered acetaminophen: 650 mg, 2 tab(s), Oral, q4h, PRN: Pain, scale 1-10. acetaminophen: 1,000 mg, 2 tab(s), Oral, q8h. albuterol: 2.5 mg, 3 mL, Inhalation, q4hRT, PRN: Shortness of breath or wheezing. Al hydroxide/Mg hydroxide/simethicone: 30 mL, Oral, q6h, PRN: Indigestion. aspirin: 81 mg, 1 tab(s), Oral, BID. busPIRone: 10 mg, 1 tab(s), Oral, BID. cyanocobalamin: 1,000 mcg, 2 tab(s), Oral, qDay. dilTIAZem: 120 mg, 1 cap(s), Oral, qAM. docusate: 100 mg, 1 cap(s), Oral, BID, PRN: Constipation. docusate-senna: 2 tab(s), Oral, BID. donepezil: 10 mg, 1 tab(s), Oral, qHS. finasteride: 5 mg, 1 tab(s), Oral, qDay. folic acid: 1 mg, 1 tab(s), Oral, BIDM. glucagon: 1 mg, 1 mL, Intramuscular, AsDirected, PRN: Hypoglycemia. glucose: 12.5 gram(s), 25 mL, IV Push, AsDirected, PRN: Hypoglycemia. glucose: 16 gram(s), 4 tab(s), Chewed, AsDirected, PRN: Hypoglycemia. glycerin: 1 supp, Rectal, Daily, PRN: Constipation. lisinopril: 5 mg, 1 tab(s), Oral, Daily. magnesium hydroxide: 30 mL, Oral, qDay, PRN: Constipation. magnesium oxide: 400 mg, 1 tab(s), Oral, BID. meloxicam: 7.5 mg, 1 tab(s), Oral, BID. mesalamine: 2.4 gram(s), 3 tab(s), Oral, qDay. metoprolol: 50 mg, 1 tab(s), Oral, BID. montelukast: 10 mg, 1 tab(s), Oral, qPM. oxyCODONE: 10 mg, 2 tab(s), Oral, q6hr, PRN: as needed for pain. oxyCODONE: 5 mg, 1 tab(s), Oral, q6hr, PRN: as needed for pain. pantoprazole: 40 mg, 1 tab(s), Oral, BIDAC. .PharmacyCommunication: Propranolol clarification, Miscellaneous, qDay. polyethylene glycol 3350: 17 gram(s), 15 mL, Oral, qDay, PRN: Constipation. primidone: 250 mg, 1 tab(s), Oral, BID. propranolol: 40 mg, 1 tab(s), Oral, TID. senna: 8.6 mg, 1 tab(s), Oral, qDay, PRN: Constipation. sertraline: 200 mg, 2 tab(s), Oral, qDay. sucralfate: 1 gram(s), 1 tab(s), Oral, BID. tamsulosin: 0.4 mg, 1 cap(s), Oral, qDay. ubiquinone: 100 mg, 1 cap(s), Oral, qDay. Documented acetaminophen: 1,000 mg, 2 tab(s), Oral, q8h. albuterol: 2 puff(s), Inhalation, q4h, PRN: as needed for shortness of breath or wheezing. ascorbic acid/chondroitin/glucosa/erica: 900 mg, Oral, qDay, 0 Refill(s). aspirin: 81 mg, 1 tab(s), Oral, BID, for 14 day(s). aspirin: 81 mg, 1 tab(s), Oral, BID, for 8 day(s). aspirin: 81 mg, 1 tab(s), Oral, qDay, for 30 day(s). busPIRone: 10 mg, 1 tab(s), Oral, BID. docusate-senna: 2 tab(s), Oral, BID. donepezil: 10 mg, 1 tab(s), Oral, qHS. finasteride: 5 mg, 1 tab(s), Oral, qDay. folic acid: 1 mg, 1 tab(s), Oral, BIDM. lansoprazole: 30 mg, 1 cap(s), Oral, BID. lisinopril: 5 mg, 1 tab(s), Oral, Daily. magnesium oxide: 400 mg, 1 tab(s), Oral, BID. meloxicam: 7.5 mg, 1 tab(s), Oral, BID. mesalamine: 2.4 gram(s), 2 tab(s), Oral, qDay, 0 Refill(s). metoprolol: 50 mg, 1 tab(s), Oral, BID. Misc Medication: diltiazem HCL 120 mg/24 hr, Oral, qAM, 0 Refill(s). Misc Medication: cyanocobalamin 1000 mcg/ml drops - 1000 mcg, Oral, Daily, 0 Refill(s). Misc Medication: Vitamins A,C, Q-whgk-sppeih ER 1 tablet, Oral, Daily, 0 Refill(s). Misc Medication: bdwytzmg-kil-XH-lycopen-lutein 1 tab, Oral, Daily, 0 Refill(s). montelukast: 10 mg, 1 tab(s), Oral, qPM, 0 Refill(s). oxyCODONE: 1-2 tabs, Oral, q4h, for 7 day(s), for pain 4-6/10, PRN: for pain, 0 Refill(s). primidone: 250 mg, 1 tab(s), Oral, BID. propranolol: 40 mg, 1 tab(s), Oral, TID. senna: 8.6 mg, 1 tab(s), Oral, qDay, PRN: as needed for constipation, 100 tab(s), 0 Refill(s). sertraline: 200 mg, 2 tab(s), Oral, qDay. sucralfate: 1 gram(s), 1 tab(s), Oral, BID. tamsulosin: 0.4 mg, 1 cap(s), Oral, qDay, 30 cap(s), 0 Refill(s). ubiquinone: 100 mg, Oral, qDay. Medications Inactivated in the Last 72 Hours albuterol: 2 puff(s), Inhalation, q4h, PRN: Shortness of breath or wheezing. ascorbic acid/chondroitin/glucosa/erica: 900 mg, Oral, qDay. meloxicam: 7.5 mg, 1 tab(s), Oral, BID. Misc Medication: hewgbrki-lbr-KP-lycopen-lutein 1 tab, Oral, Daily. Misc Medication: cyanocobalamin 1000 mcg/ml drops - 1000 mcg, Oral, Daily. Misc Medication: diltiazem HCL 120 mg/24 hr, Oral, qAM. Misc Medication: Vitamins A,C, X-ppxw-yerurt ER 1 tablet, Oral, Daily. Review of Systems Constitutional: Denies weight changes fever or chills HEENT: Denies vision changes or dry eyes Respiratory: Denies shortness of breath, cough, conversational dyspnea Cardiovascular: Denies chest pain, palpitations, uncontrolled blood pressure Gastrointestinal: Denies nausea vomiting or diarrhea Genitourinary: Denies dysuria or urinary retention endorses urinary retention has Chua catheter Neurological: Denies any cognitive deficits. Endorses faint tremor Musculoskeletal: Denies any joint or musculoskeletal pain Skin: Denies rashes or erythema Endocrine: Denies hot or cold intolerance. No hypoglycemia. Psychiatric: Denies changes in mental status. Allergic/immunologic: Denies environmental allergies or immune dysfunction Past Medical History: Arthritis Colitis Crohn's disease Macular degeneration Hypertension Essential tremors Depression Procedure/Surgical History: Total shoulder replacement: 10/12/24 Social History: Tobacco Details: Nicotine Use: Never (less than 100 in lifetime). Denies alcohol or recreational drug use Family History: Patient denies any pertinent family history Allergies: Atorvastatin, Inderal, penicillins, Singulair PCP: Dr Ramos BMI: 29 Physical Exam General appearance: Alert orient x3, no apparent distress Head: Normocephalic no evidence of trauma EENT: Pupils equal and reactive to light and accommodation, no erythema. Ears with no external lesions or discharge. Nose clear, nares patent, no discharge. Throat normal healthy definition, no redness or erythema. Neck: Trachea midline. No lymphatic adenopathy Cardiac: Regular rate and rhythm, no rubs or murmurs Lungs: Clear to auscultation, no adventitious sounds, good aeration Abdomen: Soft, nontender, no organomegaly or rebound tenderness. Positive bowel sounds Musculoskeletal: Intact range of motion, no erythema, no polyarthric changes Extremities: No edema or calf tenderness Neurological: Cranial nerves intact. Mild faint intention tremor to hands. Skin: Surgical incision to left shoulder dry and intact. No signs of infection or drainage. Psychiatric: Mood good. No anxiety or depression Hkmbtqwdtun51.2 (05:10) Systolic Blood Izofawvq32 (05:10) Diastolic Blood Gzvvymzw33 (05:10) Pulse60 (05:10) [id number] (05:10) Respiratory RateNo result No 36hr Lab Data Assessment/Plan Assessment: Reverse left total shoulder replacement. History of polyarthritis colitis Crohn's disease macular degeneration hypertension essential and resting tremor and BPH with retention. Plan: Acute rehabilitation with physical and occupational therapy services. Gait mobility ADLs self-care and strengthening. Sertraline for history depression. Bowel routine with scheduled senna. Oxycodone or Tylenol for breakthrough pain. Primidone and propranolol for tremors with therapeutic exercises. Nonweightbearing left arm in sling pending Ortho follow- up. Team staffing regarding further goals plan of care and length of stay. Condition complex, medically stable Post Admission Physician Evaluation Medical reconciliation performed. Old chart reviewed. Patient status on admission to rehab is medically stable but medically complex. Appropriate for admission to inpatient rehab facility due to need for 24-hour nursing and medical management in a hospital-based setting. Comparison with information on preadmission screening findings information to be consistent. Diagnoses to be monitored and treated include; Polyarthritis, impaired gait, debility, pain control, essential tremors Rehabilitation physician to direct team staffing. See daily on rehabilitation rounds. Plan is for acute rehab with PT OT and speech-language therapy rehab nursing social work and nutrition for an acute interdisciplinary team rehab approach. Will work on gait training, ADLs, self-care,and strengthening, bowel and bladder program. DVT prophylaxis and medical management of comorbidities Minimal 3 hours/day 5-6 days/week of rehabilitation services Goal is for discharge home at a modified independent level for all gait mobility ADLs and self-careskills, skin intact, medically stable, optimal cardiopulmonary status, free of infection, continentof bowel bladder, adequate pain management and comfort, complete discharge disposition home set up patient and family training. Medical Comorbidities at the Time of Admission Arthritis, colitis, Crohn's disease, macular degeneration, hypertension, tremors, depression Barriers to Discharge Functional medical impairments Consulting Physician Dr. Yip Estimated Length of Stay 2-3 weeks Medications are reviewed and up-to-date This document was transcribed using dictation software and may contain typographical errors. Ivan Velásquez RN, am scribing for , and in the presence of Dr. Chantell VILLA. Dr. Chantell Velásquez DO, personally performed the services described in this documentation, as scribed by, Ivan Blask RN in my presence and it is both accurate and complete. Digitally Signed by QUINTIN KAY DO on 10/18/2024 01:04 PM [place] [id number] Physical medicine and rehab Consult note INPATIENT REHAB HISTORY AND PHYSICAL CONSULTATION DATE OF ADMISSION: 10/17/2024 CC: Left reverse total shoulder arthroplasty Admission History and Physical HISTORY OF PRESENT ILLNESS: This is a 83-year-old male noted to [place] inpatient rehab from [facility] stay 10/12 - 10/17 who has a past medical history of Parkinson's disease, essential tremor, arthritis, colitis, Crohn's, hypertension, and macular degeneration who presented to the emergency room with ongoing left shoulder pain following recent dislocation in May. Had multiple failed conservative treatments and underwent a planned left reverse total shoulder arthroplasty on 10/[address] Francisco. Postoperatively he did suffer some urinary retention and required straight catheterization and resulting in Chua catheter placement. Orthopedics ordered patient to be nonweightbearing to the left lower extremity with sling in place at all times. He was started on aspirin 81 mg twice daily for DVT prophylaxis and is to complete a 14-day course. He was placed on as needed oxycodone, scheduled Tylenol, andmeloxicam for pain control. Patient was the medically stable transferred to [place] [facility] physical and Occupational Therapy as well as medical supervision. Today, patient is sitting up in a wheelchair reports ongoing tenderness to the left shoulder. He reports utilizing the as needed Tylenol but states he is try to stay away from the as needed oxycodone. Rates pain at 5 on a pain scale 0-10. Denies any uncontrolled pain. He does have the sling in place with pulses strong and present. He has no edema to the bilateral extremities. Lungs are clear to auscultation, SpO2 currently ranging 96-97% on room air. Denies any cough or congestion and states breathing is comfortable. Deniesany lightheadedness, dizziness, or headache with blood pressures 98/50 2 1 2462. Denies any chest pain or chest pressure with heart rate 66 74. Reports that he did have a prior issue with urinary retention in the past and states he has had a urologist in the past as well. He denies any CVA tenderness, suprapubic tenderness, or bladder distention on exam. Reports he is having some issues with constipation and states has been a couple days since his last bowel movement, states he is utilizing as needed bowel medications this morning with addition of the scheduled senna S. Denies abdominal pain,nausea, or vomiting. Recent labs with WBC 10.3, hemoglobin 10.6, platelet 362, sodium 128, testing 4.7, BUN 21, and creatinine 0.78. He does have a follow-up BMP and CBC pending results today. Patient denies any chest pain, chest pressure, lightness, dizziness, cough, congestion, loose stools, CVA tenderness, supra tenderness, or bladder distention. Hospital medications, labs, and diagnostics been reviewed and reconciled. PAST MEDICAL HISTORY: Parkinson's disease Essential tremor Arthritis Colitis Crohn's Hypertension Macular degeneration PAST SURGICAL HISTORY: Denies any past surgical history SOCIAL HISTORY: Denies any tobacco use, alcohol use, or substance abuse Lives at home alone in an apartment with first-floor set up. FAMILY HISTORY: Denies any significant past family medical history CODE STATUS: Full code ALLERGIES: Atorvastatin Inderal Penicillins Singulair BMI-35.87 kg WT-293.9 pounds Vitals Signs(Last 24 hrs)__Last Charted Minimum Maximum Temp36.2(OCT 18 05:10)36.2(OCT 18 05:10)36.7(OCT 17 17:39) Heart Rate66(OCT 17 21:34)66(OCT 17 21:34)74(OCT 17 17:39) SBP98(OCT 18 05:10)98(OCT 18 05:10)124(OCT 17 17:39) DBPL 52(OCT 18 05:10)L 52(OCT 18 05:10)62(OCT 17 17:39) REVIEW OF SYSTEMS: General: The patient appears frail and debilitated requiring assistance with activities of daily living including mobility. Constitutional: Appetite is good. Denies any uncontrolled pain. No fever. No chills. HEENT: Eyes: No blurring, discharge, or pain. ENT: No congestion, discharge or epistaxis. Respiratory: No cough, no dyspnea. No hemoptysis. Cardiovascular: No chest pain. No claudication. No paroxysmal nocturnal dyspnea. Gastrointestinal: No constipation, diarrhea, nausea, vomiting or abdominal pain. No dysphagia. Genitourinary: No CVA tenderness, supra B tenderness, or bladder distention. Chua catheter in place Neurological: No new focal weakness. No seizure or tremor. Musculoskeletal: No contractures or altered range of motion. Endocrine: No hot or cold intolerance. No hypoglycemia. Skin: Left shoulder incision healing well. Dressing in place, no signs or symptoms of infection. Nodrainage. Sling and swath in place to the left upper extremity, neurovascular check intact Mental Status: No changes in mental status. PHYSICAL EXAMINATION: Physical Exam: General: Appears chronically ill, in no acute distress. Sitting up in chair, alert and oriented x 4. Appears comfortable, and does not appear in acute pain. Pleasant and cooperative. Good eye contact, flat affect. Answers questions appropriately HEENT: Mucous membranes moist, no nasal drainage, EOMI Respiratory: Lungs are clear to auscultation. Respirations are unlabored room air. No cough, congestion, or conversational dyspnea Cardiovascular: Regular rate rhythm; no murmurs, rubs, or gallops. Edema/Varicosities of Extremities: No edema to the bilateral lower extremities. No calf tenderness. Gastrointestinal: Abdomen soft, NT, ND, without masses. Bowel sounds present upper quadrants Genitourinary: No suprapubic tenderness, CVA tenderness, or bladder distention. Chua catheter in place and clear, light yellow urine. No sediment or hematuria present. Musculoskeletal: Exam shows no misalignment, tenderness, or effusion. Skin: Left shoulder incision healing well. Dressing is in place. No signs or symptoms of infection.No drainage. Sitting and swath in place to the left upper extremity, neurovascular check intact Neurological: No tremor or focal weakness Psychiatric: A & O x4. Mood pleasant and cooperative. Judgment/insight: limited. Short term memory with limitations. Medication List Active Medications Ordered acetaminophen: 650 mg, 2 tab(s), Oral, q4h, PRN: Pain, scale 1-10. acetaminophen: 1,000 mg, 2 tab(s), Oral, q8h. albuterol: 2.5 mg, 3 mL, Inhalation, q4hRT, PRN: Shortness of breath or wheezing. Al hydroxide/Mg hydroxide/simethicone: 30 mL, Oral, q6h, PRN: Indigestion. aspirin: 81 mg, 1 tab(s), Oral, BID. busPIRone: 10 mg, 1 tab(s), Oral, BID. cyanocobalamin: 1,000 mcg, 2 tab(s), Oral, qDay. dilTIAZem: 120 mg, 1 cap(s), Oral, qAM. docusate: 100 mg, 1 cap(s), Oral, BID, PRN: Constipation. docusate-senna: 2 tab(s), Oral, BID. donepezil: 10 mg, 1 tab(s), Oral, qHS. finasteride: 5 mg, 1 tab(s), Oral, qDay. folic acid: 1 mg, 1 tab(s), Oral, BIDM. glucagon: 1 mg, 1 mL, Intramuscular, AsDirected, PRN: Hypoglycemia. glucose: 12.5 gram(s), 25 mL, IV Push, AsDirected, PRN: Hypoglycemia. glucose: 16 gram(s), 4 tab(s), Chewed, AsDirected, PRN: Hypoglycemia. glycerin: 1 supp, Rectal, Daily, PRN: Constipation. lisinopril: 5 mg, 1 tab(s), Oral, Daily. magnesium hydroxide: 30 mL, Oral, qDay, PRN: Constipation. magnesium oxide: 400 mg, 1 tab(s), Oral, BID. meloxicam: 7.5 mg, 1 tab(s), Oral, BID. mesalamine: 2.4 gram(s), 3 tab(s), Oral, qDay. metoprolol: 50 mg, 1 tab(s), Oral, BID. montelukast: 10 mg, 1 tab(s), Oral, qPM. oxyCODONE: 10 mg, 2 tab(s), Oral, q6hr, PRN: as needed for pain. oxyCODONE: 5 mg, 1 tab(s), Oral, q6hr, PRN: as needed for pain. pantoprazole: 40 mg, 1 tab(s), Oral, BIDAC. .PharmacyCommunication: Propranolol clarification, Miscellaneous, qDay.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 Telephone encounter Note * Telephone Encounter - Chloé Farrell APRN.CNP - 10/02/2024 12:12 PM EST We were waiting on records from [facility], now that we have those please fax information. [facility] Telephone encounter Note* Telephone Encounter - Ana Gayle RN - 10/02/2024 11:49 AM EST Hallie calling form [facility]. Pt scheduled to have left reverse total shoulder arthroplasty done on 10/12/[address] Francisco with [facility] at [facility]. Hallie states she still has not received pre-op eval information, EKG and clearance for patient. Asking if there is an update for this patient so they can proceed? EKG was completed at [facility], per patient. Please call Hallie back at [phone], option 6. Ana Gayle RN [facility]10[facility] History of Present illness Narrative* Chloé Farrell APRN.CHIPPING MACHINE OPERATOR - 09/25/2024 2:22 PM EDT SUBJECTIVE Evelia Nails Jr. is a 83 year old male here today for a check up on his medical problems. Chief Complaint Patient presents with: Pre-Op Exam HPI Evelia Nails Jr. is an 83 year old male presents to the office for pre-op examination. Is scheduledto have left reverse total shoulder arthroplasty done on 10/12/[address] Francisco with [facility] at [facility]. History of having anesthesia: Yes. Any reaction from anesthesia in the past: No. Personalhistory of heart disease: No. Plans for care after surgery: overnight stay, considering rehab. Chronic diseases controlled: Yes. Currently taking a blood thinner: No. Patient denies chest pain, SOB, dizziness, palpitations, one sided weakness, dropping of face or mouth, fever, or recent sickness. No history of CVA or MS. Labs, chest xray, EKG to be reviewed. Medical history significant for parkinson's, elevated cholesterol, HTN, paroxysmal a fib, chronic bronchitis, IFG, chronic ITP, depression. His medications were reviewed today and his list is now up to date. Medications Current Outpatient Medications Medication Sig acetaminophen (TYLENOL EXTRA STRENGTH) 500 mg tablet Take 1,000 mg by mouth every 8 hours as needed. tamsulosin (FLOMAX) 0.4 mg Take 1 capsule by mouth daily at bedtime. metoprolol tartrate, short acting, (LOPRESSOR) 50 mg tablet Take 1 tablet by mouth two times a day. lansoprazole (PREVACID) 30 mg capsule Take 1 capsule by mouth two times a day. 1/2 hr before meal. sertraline (ZOLOFT) 100 mg tablet Take 2 tablets by mouth once daily. montelukast (SINGULAIR) 10 mg tablet Take 1 tablet by mouth daily at bedtime. busPIRone (BUSPAR) 10 mg tablet Take 1 tablet by mouth two times a day. donepezil (ARICEPT) 10 mg tablet Take 1 tablet by mouth daily at bedtime. Mesalamine (LIALDA) 1.2 gram EC tablet Take 1 tablet by mouth two times a day. propranolol (INDERAL) 40 mg tablet Take 1 tablet by mouth three times a day. As directed folic acid 1 mg tablet Take 1 tablet by mouth two times a day. sucralfate (CARAFATE) 1 gram tablet Take 1 tablet by mouth two times a day. finasteride (PROSCAR) 5 mg tablet Take 5 mg by mouth once daily. glucosamine/msm/chondrt/C/hyal (WWWUHEHHBGD-CEQHOZEFIGT-TTM ORAL) Take by mouth. MV with Ieb-Vovlxcdf-Ssegrk (CENTRUM SILVER) 0.4-300-250 mg-mcg-mcg tab Take 1 tablet by mouth oncedaily. VIT C/E/ZN/COPPR/LUTEIN/ZEAXAN (PRESERVISION AREDS 2 ORAL) Take 2 capsules by mouth once daily. coenzyme Q10 (COENZYME Q-10) 100 mg cap capsule Take 1 capsule by mouth. cyanocobalamin (VITAMIN B-12) 1,000 mcg tab Take 1 tablet by mouth once daily. magnesium oxide (MAG-OX) 400 mg (241.3 mg magnesium) tablet Take 1 tablet by mouth once daily. No current facility-administered medications for this visit. ALLERGIES Allergen Reactions Atorvastatin Contraindication-Medical Surgical myalgia, weakness proximal muscle Penicillins doesn't work ACTIVE PROBLEM LIST Hypomagnesemia - 11/05/2023 Ifg (Impaired Fasting Glucose) - 11/05/2023 Mixed Hyperlipidemia - 11/05/2023 Vitamin D Deficiency - 11/05/2023 Major Depressive Disorder, Single Episode, Mild (Hcc) - 07/13/2023 Chronic Bronchitis (Hcc) - 02/21/2023 Esophageal Dysphagia - 02/21/2023 Comment: pills noted Mild Depression - 11/02/2021 Comment: Stable on sertraline that replace Cymbalta when that was no longer helping. 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 Pure Hypercholesterolemia - 12/27/2008 Essential Hypertension - 12/27/2008 Localized Osteoarthrosis, Lower Leg - 07/25/2008 DIVERTICULOSIS COLON - NO HEMORRHAGE - 2007 Benign Prostatic Hyperplasia With Lower Urinary Tract Symptoms - 07/05/2007 Bladder Neck Obstruction - 07/05/2007 Impotence of Organic Origin - 07/05/2007 Injury to Ulnar Nerve - 05/13/2006 Carpal Tunnel Syndrome - 01/07/2006 Regional Enteritis (Formerly [facility]) - 07/16/2005 Inguinal Hernia Without Mention of Obstruction Or Gangrene, Unilateral Or Unspecified, (Not Specified As Recurrent) - 07/16/2005 Hemorrhage of Gastrointestinal Tract, Unspecified - 07/16/2005 Benign Neoplasm of Rectum and Anal Canal - 07/16/2005 Paralysis Agitans (Formerly [facility]) - 07/16/2005 Social History Tobacco Use Smoking status: Former Current packs/day: 0.00 Types: Cigarettes, Pipe Start date: 11/29/1957 Quit date: 11/29/1962 Years since quittin.8 Smokeless tobacco: Never Tobacco comments: Pt smoked on & off x 5 years, never a heavy smoker Substance Use Topics Alcohol use: Yes Comment: rare stawberry daquiri Drug use: No Review of Systems Constitutional: Negative. Eyes: Negative for visual disturbance. Respiratory: Negative for chest tightness and shortness of breath. Cardiovascular: Negative for chest pain, palpitations and leg swelling. Neurological: Negative for seizures, syncope, facial asymmetry and speech difficulty. OBJECTIVE BP 118/68 Pulse 69 Ht 5' 11.25 (1.81m) Wt 210 lb 8.6 oz (95.5kg) SpO2 97% BMI 29.15 kg/(m^2). Physical Exam Vitals and nursing note reviewed. Constitutional: General: He is awake. He is not in acute distress. Appearance: He is well-developed and well-groomed. He is not ill-appearing, toxic-appearing or diaphoretic. HENT: Head: Normocephalic. Eyes: General: Vision grossly intact. Conjunctiva/sclera: Conjunctivae normal. Pupils: Pupils are equal, round, and reactive to light. Neck: Vascular: No carotid bruit or JVD. Cardiovascular: Rate and Rhythm: Normal rate and regular rhythm. Heart sounds: Normal heart sounds. No murmur heard. Pulmonary: Effort: Pulmonary effort is normal. No accessory muscle usage, prolonged expiration or respiratory distress. Breath sounds: Normal breath sounds. Musculoskeletal: General: Normal range of motion. Cervical back: Normal range of motion and neck supple. Skin: General: Skin is warm and dry. Capillary Refill: Capillary refill takes less than 2 seconds. Neurological: General: No focal deficit present. Mental Status: He is alert and oriented to person, place, and time. Mental status is at baseline. Cranial Nerves: No cranial nerve deficit. Sensory: No sensory deficit. Psychiatric: Attention and Perception: Attention and perception normal. Mood and Affect: Mood normal. Speech: Speech normal. Behavior: Behavior normal. Behavior is cooperative. Thought Content: Thought content normal. Judgment: Judgment normal. ASSESSMENT/PLAN: 1. Arthritis of left shoulder region - ICD9: 716.91, ICD10: M19.012 (primary diagnosis) Scheduled to have left reverse total shoulder arthroplasty done on 10/12/[address] Francisco with [facility] at [facility]. 2. Chronic left shoulder pain - ICD9: 719.41, 338.29, ICD10: M25.512, G89.29 See above. 3. Pre-op evaluation - ICD9: V72.84, ICD10: Z01.818 Based on physical exam done at today's visit, negative review of systems, negative history for heart disease, CVD, pending that he has a stable EKG and stable labs the patient will be cleared for surgery from a primary care standpoint, however EKG and labs need to be received and reviewed by PCP care team first. 4. Essential hypertension - ICD9: 401.9, ICD10: I10 - Controlled - Continue current medications - Recommend home blood pressure monitoring, to bring results to next visit - Encouraged sodium restriction, DASH or Mediterranean diet - Recommend regular aerobic exercise 5. Encounter for immunization - ICD9: V03.89, ICD10: Z23 - INFLUENZA VACCINE, PRSV FREE, AGE 65+ YR, HIGH DOSE, TRIVALENT (FLUZONE HIGH-DOSE) 6. Parkinson's disease, unspecified whether dyskinesia present, unspecified whether manifestations fluctuate (HCC) - ICD9: 332.0, ICD10: G20.A1 Stable. 7. Pure hypercholesterolemia - ICD9: 272.0, ICD10: E78.00 Previously stable, due for labs. 8. PAF (paroxysmal atrial fibrillation) (HCC) - ICD9: 427.31, ICD10: I48.0 Stable, no evidence of recent episodes. 9. Chronic bronchitis, unspecified chronic bronchitis type (HCC) - ICD9: 491.9, ICD10: J42 Stable. 10. IFG (impaired fasting glucose) - ICD9: 790.21, ICD10: R73.01 Previously stable, due for labs. 11. Chronic ITP (idiopathic thrombocytopenia) (HCC) - ICD9: 287.31, ICD10: D69.3 Previously stable, due for labs. 12. Mild depression - ICD9: 311, ICD10: F32.A Stable. 13. Encounter for therapeutic drug monitoring - ICD9: V58.83, ICD10: Z51.81 - COMPLETE BLOOD COUNT AND DIFFERENTIAL - COMPREHENSIVE METABOLIC PANEL - MAGNESIUM 14. Vitamin D deficiency - ICD9: 268.9, ICD10: E55.9 - VITAMIN D 25 HYDROXY Portions of this note have been entered by ancillary staff. I have reviewed and when necessary edited, so that they are an adequate record of my encounter with this patient Please note that parts of this document were created using voice recognition software and therefore may contain grammatical errors. Patient verbalizes understanding of instructions from today's visit and in agreement with treatmentplan. Questions answered. Agrees to call the office if questions, concerns of issues with acute symptoms not improving or if they worsen. See diagnoses and orders for additional plan(s). Allergies and medications were reviewed, list was updated, and refills given if needed. Past medical, surgical, social, and family history reviewed and updated as appropriate. Encouraged proper diet & exercise as well as compliance with taking medications. Age- appropriate health preventative measures were discussed. Return if symptoms worsen or fail to improve, for Keep next scheduled appointment.. Chloé Farrell APRN-JONATHON documented in this encounter[facility]08-[facility]24 History of Present illness Narrative* Laila Ramos MD - 07/03/2024 4:50 PM EDT This note was created using Piktochartter. Subjective Evelia Nails Jr. is a 83 year old male. Patient presents with: F/U 4 month SUBJECTIVE: Evelia Nails Jr. is a 83 year old year old gentleman here today for 4 month follow up appointment for review of medical conditions. Stable on current meds. Plans for shoulder replacement of dominant left shoulder through [facility]. See assessment and plan for other issues addressed. PAST MEDICAL HISTORY No date: Anxiety 07/16/2005: Benign neoplasm of rectum and anal canal No date: Chronic rhinitis 07/16/2005: Diarrhea No date: Essential and other specified forms of tremor Comment: not Parkinson's 07/16/2005: Essential hypertension, benign 07/16/2005: Hemorrhage of gastrointestinal tract, unspecified No date: Hemorrhage of gastrointestinal tract, unspecified 07/16/2005: Inguinal hernia without mention of obstruction or gangrene, unilateral or unspecified, (not specified as recurrent) 07/16/2005: Irritable bowel syndrome 07/16/2005: Paralysis agitans (HCC) 07/16/2005: Regional enteritis of unspecified site Comment: crohn's Current Outpatient Medications Medication Sig metoprolol tartrate, short acting, (LOPRESSOR) 50 mg tablet Take 1 tablet by mouth two times a day. lansoprazole (PREVACID) 30 mg capsule Take 1 capsule by mouth two times a day. 1/2 hr before meal. magnesium oxide (MAG-OX) 400 mg (241.3 mg magnesium) tablet Take 1 tablet by mouth once daily. sertraline (ZOLOFT) 100 mg tablet Take 2 tablets by mouth once daily. montelukast (SINGULAIR) 10 mg tablet Take 1 tablet by mouth daily at bedtime. busPIRone (BUSPAR) 10 mg tablet Take 1 tablet by mouth two times a day. donepezil (ARICEPT) 10 mg tablet Take 1 tablet by mouth daily at bedtime. Mesalamine (LIALDA) 1.2 gram EC tablet Take 1 tablet by mouth two times a day. propranolol (INDERAL) 40 mg tablet Take 1 tablet by mouth three times a day. As directed folic acid 1 mg tablet Take 1 tablet by mouth two times a day. sucralfate (CARAFATE) 1 gram tablet Take 1 tablet by mouth two times a day. tamsulosin (FLOMAX) 0.4 mg Take 1 capsule by mouth daily at bedtime. albuterol HFA (PROAIR HFA) 90 mcg/actuation inhaler Inhale 2 Puffs as instructed every 4 hours as needed. finasteride (PROSCAR) 5 mg tablet Take 5 mg by mouth once daily. glucosamine/msm/chondrt/C/hyal (DAFVYDJPECV-DLWYBAFWISR-HZY ORAL) Take by mouth. MV with Cip-Jaxcdomq-Gmoeek (CENTRUM SILVER) 0.4-300-250 mg-mcg-mcg tab Take 1 tablet by mouth oncedaily. VIT C/E/ZN/COPPR/LUTEIN/ZEAXAN (PRESERVISION AREDS 2 ORAL) Take 2 capsules by mouth once daily. coenzyme Q10 (COENZYME Q-10) 100 mg cap capsule Take 1 capsule by mouth. cyanocobalamin (VITAMIN B-12) 1,000 mcg tab Take 1 tablet by mouth once daily. sucralfate (CARAFATE) 1 gram tablet Take 1 tablet by mouth two times a day. (Patient not taking: Reported on 06/21/2024) tamsulosin (FLOMAX) 0.4 mg Take 1 capsule by mouth daily at bedtime. (Patient not taking: Reported on 06/21/2024) BETA CAROTENE ORAL Take by mouth. (Patient not taking: Reported on 06/21/2024) No current facility-administered medications for this visit. Review of Systems Objective BP 120/62 Pulse 70 Temp 36.8 C (98.3 F) Resp 16 Wt 96.6 kg (213 lb) SpO2 97% BMI 28.89 kg/m Physical Exam Vitals reviewed. Constitutional: Appearance: Normal appearance. Eyes: Conjunctiva/sclera: Conjunctivae normal. Cardiovascular: Rate and Rhythm: Normal rate and regular rhythm. Heart sounds: Normal heart sounds. Pulmonary: Effort: Pulmonary effort is normal. Breath sounds: Normal breath sounds. Musculoskeletal: Right lower leg: No edema. Left lower leg: No edema. Skin: General: Skin is warm and dry. Neurological: General: No focal deficit present. Mental Status: He is alert and oriented to person, place, and time. Psychiatric: Mood and Affect: Mood normal. Behavior: Behavior normal. Thought Content: Thought content normal. Judgment: Judgment normal. Latest Ref Rng 07/09/2023 10/29/2023 02/18/2024 Protein, Total 6.3 - 8.0 g/dL 7.2 6.9 6.7 Albumin 3.9 - 4.9 g/dL 4.2 4.3 3.9 Calcium 8.5 - 10.2 mg/dL 9.6 9.7 9.0 Bilirubin, Total 0.2 - 1.3 mg/dL 0.8 0.6 0.4 Alkaline Phosphatase 38 - 113 U/L 102 101 109 AST 14 - 40 U/L 14 22 17 ALT 10 - 54 U/L 12 15 10 Glucose 74 - 99 mg/dL 114 (H) 101 (H) 118 (H) BUN 9 - 24 mg/dL 20 22 14 Creatinine 0.73 - 1.22 mg/dL 1.21 1.22 1.14 Sodium 136 - 144 mmol/L 140 140 140 Potassium 3.7 - 5.1 mmol/L 4.6 4.7 4.7 Chloride 97 - 105 mmol/L 103 103 104 CO2 22 - 30 mmol/L 24 26 26 Anion Gap 9 - 18 mmol/L 13 11 10 eGFR >=60 mL/min/1.73m 60 59 (L) 64 WBC 3.70 - 11.00 k/uL 7.47 7.75 RBC 4.20 - 6.00 m/uL 4.94 4.69 Hemoglobin 13.0 - 17.0 g/dL 13.6 12.4 (L) Hematocrit 39.0 - 51.0 % 43.0 41.1 MCV 80.0 - 100.0 fL 87.0 87.6 MCH 26.0 - 34.0 pg 27.5 26.4 MCHC 30.5 - 36.0 g/dL 31.6 30.2 (L) RDW-CV 11.5 - 15.0 % 15.4 (H) 15.0 Platelet Count 150 - 400 k/uL 142 (L) 165 MPV 9.0 - 12.7 fL 11.2 10.4 Absolute nRBC <0.01 k/uL <0.01 <0.01 Cholesterol, Total <200 mg/dL 174 175 148 Triglyceride <150 mg/dL 194 (H) 157 (H) 139 HDL Cholesterol >39 mg/dL 31 (L) 35 (L) 28 (L) Non HDL Cholesterol <130 mg/dL 143 (H) 140 (H) 120 Fasting Time hrs 12 12 12 VLDL Cholesterol <30 mg/dL 39 (H) 31 (H) 28 TC:HDL Ratio <5.10 5.61 (H) 5.00 5.29 (H) LDL Cholesterol <100 mg/dL 104 (H) 109 (H) 92 LDL:HDL Ratio <2.54 3.35 (H) 3.11 (H) 3.29 (H) Hemoglobin A1C 4.3 - 5.6 % 5.4 5.5 Estimated Average Glucose mg/dL 108 111 Magnesium 1.7 - 2.3 mg/dL 2.4 (H) 2.2 2.3 Uric Acid 4.0 - 8.1 mg/dL 4.1 4.3 Vitamin D 25 Hydroxy 31.0 - 80.0 ng/mL 39.9 Legend: (H) High (L) Low Assessment and Plan Encounter Diagnosis ICD-10-CM 1. Essential hypertension I10 COMPREHENSIVE METABOLIC PANEL COMPLETE BLOOD COUNT Controlled. Continue management 2. Vitamin D deficiency E55.9 VITAMIN D 25 HYDROXY Continue supplement. Update lab 3. IFG (impaired fasting glucose) R73.01 COMPREHENSIVE METABOLIC PANEL HEMOGLOBIN A1C Still IFG, not DM. Continue management 4. Hypomagnesemia E83.42 MAGNESIUM Level good. Continue management 5. Mixed hyperlipidemia E78.2 LIPID PANEL BASIC TG and LDL improved; HDL dropped to <30. Continue efforts at increased omega 3 oils and exercise 6. Benign prostatic hyperplasia with nocturia N40.1 tamsulosin (FLOMAX) 0.4 mg R35.1 Contnue management. 7. Encounter for long-term current use of medication Z79.899 COMPREHENSIVE METABOLIC PANEL HEMOGLOBIN A1C COMPLETE BLOOD COUNT LIPID PANEL BASIC MAGNESIUM Above issues addressed with patient. Patient involved in shared decision making for management of medical issues. History and medications reviewed. Epic updated as needed Refills and/or prescriptions taken care of and meds adjusted as indicated after reviewed history, exam and labs. Health Maintenance reviewed. Updated record and/or ordered tests as recorded. Encouraged on efforts at healthy diet and regular exercise and adequate sleep. Laila Ramos MD documented in this encounterMet[facility]07-[facility] History of Present illness Narrative* Laila Ramos MD - 06/15/2024 2:49 PM EDT This note was created using allyDVMriter. Subjective Evelia Nails Jr. is a 83 year old male. Patient presents with: ER F/U SUBJECTIVE: Evelia Nails Jr. is a 83 year old year old gentleman here today for ER follow up appointment for review of medical conditions. Reviewed that had been able to get dislocated shoulder back in place on his own before this time. Noted that fell awkwardly when tripped and hit right shoulder but left shoulder was what got dislocated. Had to be out (Propofol and Versed) in ER for reducing it. In sling and wrapped with RUSS wrap to keep in place. Not needing anything for pain. Noted Pelvis Xray done but he is not having any pain now. had some occasional pain with certain ROMbut not constant. Noted needs eye appointment next week in [place] and with neurologist in [place]. Discussed PPI and dementia that he heard about maybe being associated. 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 Chronic rhinitis Diarrhea 07/16/2005 Essential and other specified forms of tremor not Parkinson's Essential hypertension, benign 07/16/2005 Hemorrhage of gastrointestinal tract, unspecified 07/16/2005 Hemorrhage of gastrointestinal tract, unspecified Inguinal hernia without mention of obstruction or gangrene, unilateral or unspecified, (not specified as recurrent) 07/16/2005 Irritable bowel syndrome 07/16/2005 Paralysis agitans (HCC) 07/16/2005 Regional enteritis of unspecified site 07/16/2005 crohn's Current Outpatient Medications Medication Sig lansoprazole (PREVACID) 30 mg capsule Take 1 capsule by mouth two times a day. 1/2 hr before meal. magnesium oxide (MAG-OX) 400 mg (241.3 mg magnesium) tablet Take 1 tablet by mouth once daily. sertraline (ZOLOFT) 100 mg tablet Take 2 tablets by mouth once daily. montelukast (SINGULAIR) 10 mg tablet Take 1 tablet by mouth daily at bedtime. busPIRone (BUSPAR) 10 mg tablet Take 1 tablet by mouth two times a day. donepezil (ARICEPT) 10 mg tablet Take 1 tablet by mouth daily at bedtime. sucralfate (CARAFATE) 1 gram tablet Take 1 tablet by mouth two times a day. Mesalamine (LIALDA) 1.2 gram EC tablet Take 1 tablet by mouth two times a day. propranolol (INDERAL) 40 mg tablet Take 1 tablet by mouth three times a day. As directed folic acid 1 mg tablet Take 1 tablet by mouth two times a day. sucralfate (CARAFATE) 1 gram tablet Take 1 tablet by mouth two times a day. tamsulosin (FLOMAX) 0.4 mg Take 1 capsule by mouth daily at bedtime. tamsulosin (FLOMAX) 0.4 mg Take 1 capsule by mouth daily at bedtime. metoprolol tartrate, short acting, (LOPRESSOR) 50 mg tablet Take 1 tablet by mouth twice daily. albuterol HFA (PROAIR HFA) 90 mcg/actuation inhaler Inhale 2 Puffs as instructed every 4 hours as needed. finasteride (PROSCAR) 5 mg tablet Take 5 mg by mouth once daily. glucosamine/msm/chondrt/C/hyal (GZESJRSRUZW-BWEYBRVEMRE-PCV ORAL) Take by mouth. MV with Ela-Ztcrruoo-Kufqym (CENTRUM SILVER) 0.4-300-250 mg-mcg-mcg tab Take 1 tablet by mouth oncedaily. VIT C/E/ZN/COPPR/LUTEIN/ZEAXAN (PRESERVISION AREDS 2 ORAL) Take 2 capsules by mouth once daily. BETA CAROTENE ORAL Take by mouth. coenzyme Q10 (COENZYME Q-10) 100 mg cap capsule Take 1 capsule by mouth. cyanocobalamin (VITAMIN B-12) 1,000 mcg tab Take 1 tablet by mouth once daily. No current facility-administered medications for this visit. Review of Systems Objective BP 126/72 Pulse 76 Resp 16 Wt 96.6 kg (213 lb) BMI 28.89 kg/m Physical Exam Vitals reviewed. Constitutional: Appearance: Normal appearance. Eyes: Conjunctiva/sclera: Conjunctivae normal. Cardiovascular: Rate and Rhythm: Normal rate and regular rhythm. Heart sounds: Normal heart sounds. Pulmonary: Effort: Pulmonary effort is normal. Breath sounds: Normal breath sounds. Musculoskeletal: Right shoulder: No swelling, deformity, effusion, laceration or tenderness. Normal range of motion. Left shoulder: Swelling (wit h mild warmth) and tenderness (very tender to light touch over shoulder area) present. No deformity. Comments: Left shoulder in sling and that is supported by RUSS wrap around chest. Skin: General: Skin is warm and dry. Neurological: General: No focal deficit present. Mental Status: He is alert and oriented to person, place, and time. Psychiatric: Mood and Affect: Mood normal. Behavior: Behavior normal. Thought Content: Thought content normal. Judgment: Judgment normal. Adjusted RUSS wraps since sling was too tight around neck. Assessment and Plan Encounter Diagnosis ICD-10-CM 1. Anterior dislocation of left shoulder, subsequent encounter S43.015D Treated at [facility]; will see about sooner appointment with ortho 2. Essential hypertension I10 metoprolol tartrate, short acting, (LOPRESSOR) 50 mg tablet metoprolol for HTN and heart rate control 3. PAF (paroxysmal atrial fibrillation) (HCC) I48.0 metoprolol tartrate, short acting, (LOPRESSOR) 50 mg tablet Controlled with beta izabella. Continue present management Above issues addressed with patient. Patient involved in shared decision making for management of medical issues. History and medications reviewed. Epic updated as needed Refills and/or prescriptions taken care of and meds adjusted as indicated after reviewed history, exam and labs. Health Maintenance reviewed. Updated record and/or ordered tests as recorded. Encouraged on efforts at healthy diet and regular exercise and adequate sleep. Laila Ramos MD documented in this encounter[facility] Telephone encounter Note * Telephone Encounter - Laila Ramos MD - 05/10/2024 1:53 PM EDT Magnesium not on Medication Dispense History, so sent it as well The following approved medication requests have been transmitted electronically. Requested Prescriptions Signed Prescriptions Disp Refills lansoprazole (PREVACID) 30 mg capsule 180 capsule 3 Sig: Take 1 capsule by mouth two times a day. 1/2 hr before meal. Authorizing Provider: LAILA RAMOS magnesium oxide (MAG-OX) 400 mg (241.3 mg magnesium) tablet 90 tablet 3 Sig: Take 1 tablet by mouth once daily. Authorizing Provider: LAILA RAMOS Refused Prescriptions Disp Refills magnesium oxide (MAG-OX) 400 mg (241.3 mg magnesium) tablet 90 tablet 3 Sig: Take 1 tablet by mouth once daily. Refused By: KORINA BARBER Reason for Refusal: Records indicate that there is a valid prescription at the pharmacy Laila Ramos MD [facility]06-12[facility] Miscellaneous Notes* Telephone Encounter - Laila Ramos MD - 05/10/2024 1:53 PM EDT Magnesium not on Medication Dispense History, so sent it as well The following approved medication requests have been transmitted electronically. Requested Prescriptions Signed Prescriptions Disp Refills lansoprazole (PREVACID) 30 mg capsule 180 capsule 3 Sig: Take 1 capsule by mouth two times a day. 1/2 hr before meal. Authorizing Provider: LAILA RAMOS magnesium oxide (MAG-OX) 400 mg (241.3 mg magnesium) tablet 90 tablet 3 Sig: Take 1 tablet by mouth once daily. Authorizing Provider: LAILA RAMOS Refused Prescriptions Disp Refills magnesium oxide (MAG-OX) 400 mg (241.3 mg magnesium) tablet 90 tablet 3 Sig: Take 1 tablet by mouth once daily. Refused By: KORINA BARBER Reason for Refusal: Records indicate that there is a valid prescription at the pharmacy Laila Ramos MD * Telephone Encounter - Danuta Wade - 05/09/2024 2:46 PM EDT Requesting 90 days or more. Patient has been identified by name and date of : Yes Patient phones for refill(s): Requested Prescriptions Pending Prescriptions Disp Refills lansoprazole (PREVACID) 30 mg capsule 180 capsule 3 Sig: Take 1 capsule by mouth two times a day. 1/2 hr before meal. magnesium oxide (MAG-OX) 400 mg (241.3 mg magnesium) tablet 90 tablet 3 Sig: Take 1 tablet by mouth once daily. Date of last office visit in primary care: 02/17/2024 Date of next office visit in primary care: 07/03/2024 Please advise. Thank you. Danuta Wade. documented in this encounterMet[facility]06-11-2024 Telephone encounter Note * Telephone Encounter - Danuta Wade - 05/09/2024 2:46 PM EDT Requesting 90 days or more. Patient has been identified by name and date of : Yes Patient phones for refill(s): Requested Prescriptions Pending Prescriptions Disp Refills lansoprazole (PREVACID) 30 mg capsule 180 capsule 3 Sig: Take 1 capsule by mouth two times a day. 1/2 hr before meal. magnesium oxide (MAG-OX) 400 mg (241.3 mg magnesium) tablet 90 tablet 3 Sig: Take 1 tablet by mouth once daily. Date of last office visit in primary care: 02/17/2024 Date of next office visit in primary care: 07/03/2024 Please advise. Thank you. Danuta Wade. [facility]05-14[facility] Telephone encounter Note* Telephone Encounter - Fransisca Park LPN - 04/11/2024 3:35 PM EDT Spoke to Evelia, he has an RX for Carafate 01/10/2024, x180 tablets, 3 refills. Patient does have RX at [facility]. Patient to contact pharmacy for refill. Fransisca Park LPN [facility]05-14-2024 Miscellaneous Notes* Telephone Encounter - Fransisca Park LPN - 04/11/2024 3:35 PM EDT Spoke to Evelia, he has an RX for Carafate 01/10/2024, x180 tablets, 3 refills. Patient does have RX at [facility]. Patient to contact pharmacy for refill. Fransisca Park LPN documented in this encounterMet[facility]05-01-2024 Telephone encounter Note * Telephone Encounter - Danuta Wade - 03/29/2024 3:35 PM EDT Patient has been identified by name and date of : Yes Patient phones for refill(s): Requested Prescriptions Pending Prescriptions Disp Refills sertraline (ZOLOFT) 100 mg tablet 180 tablet 3 Sig: Take 2 tablets by mouth once daily. Date of last office visit in primary care: 02/17/2024 Date of next office visit in primary care: 07/03/2024 [facility]. Please advise. Thank you. Danuta Wade. [facility]05-01-[facility] Miscellaneous Notes* Telephone Encounter - Danuta Wade - 03/29/2024 3:35 PM EDT Patient has been identified by name and date of : Yes Patient phones for refill(s): Requested Prescriptions Pending Prescriptions Disp Refills sertraline (ZOLOFT) 100 mg tablet 180 tablet 3 Sig: Take 2 tablets by mouth once daily. Date of last office visit in primary care: 02/17/2024 Date of next office visit in primary care: 07/03/2024 [facility]. Please advise. Thank you. Danuta Wade. documented in this encounterMet[facility]04-11-2024 Miscellaneous Notes* Telephone Encounter - Zunilda Gray - 03/09/2024 4:26 PM EDT Patient has been identified by name and date of : Yes, Provider Laila Ramos MD Date 03/09/2024 Time 4:30 pm Patient phones for refill(s): Requested Prescriptions Pending Prescriptions Disp Refills montelukast (SINGULAIR) 10 mg tablet 90 tablet 3 Sig: Take 1 tablet by mouth daily at bedtime. busPIRone (BUSPAR) 10 mg tablet 180 tablet 3 Sig: Take 1 tablet by mouth two times a day. Date of last office visit in primary care: 02/17/2024 Date of next office visit in primary care: 07/03/2024 PHARMACY IS [facility] PLEASE SEND TO THEM Please advise. Thank you. Zunilda Cosme. documented in this encounterMet[facility]03-21-2024 History of Present illness Narrative* Em Romero APRN.MEDICAL RECORDS SUPERVISOR - 02/17/2024 2:00 PM EDT SUBJECTIVE: Meningococcal B Vaccine: Consider Based On Risk(1 of 4 - Increased Risk) Never done MMR Vaccine(1 of 2 - Risk 2-dose series) Never done Hepatitis A Vaccine(1 of 2 - Risk 2-dose series) Never done Shingrix Vaccine(1 of 2) Never done Hepatitis B Vaccine(1 of 3 - Risk 3-dose series) Never done RSV Vaccine(1 - 1-dose 60+ series) Never done DTaP,Tdap,Td Vaccine(2 - Tdap) due on 08/22/2018 Advance Directive Discussion due on 11/29/2023 HPI Evelia Shen Nails Jr. is a 83 year old male. 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 Benign Prostatic Hyperplasia With Lower Urinary Tract Symptoms Bladder Neck Obstruction Impotence of Organic Origin DIVERTICULOSIS COLON - NO HEMORRHAGE Localized Osteoarthrosis, Lower Leg Pure Hypercholesterolemia Essential Hypertension Other Testicular Hypofunction Essential Tremor Retention of Urine, Unspecified Urethral Stricture Unspecified Dizziness Metabolic Syndrome Ibs (Irritable Bowel Syndrome) Paf (Paroxysmal Atrial Fibrillation) ([facility]) Trochanteric Bursitis Sciatica Arthritis of Knee Chronic Itp (Idiopathic Thrombocytopenia) ([facility]) Ulnar Neuropathy At Elbow Chronic Nasal Congestion S/P Tkr (Total Knee Replacement) Rebekah Type 4 Hyperlipoproteinemia Macular Degeneration Chronic Urticaria Dysthymia Chronic Nonintractable Headache Anxiety Moderate Persistent Asthma Without Complication Non-Seasonal Allergic Rhinitis Chronic Midline Low Back Pain With Left-Sided Sciatica Ddd (Degenerative Disc Disease), Lumbar Paralysis Agitans ([facility]) Mild Depression Chronic Bronchitis ([facility]) Esophageal Dysphagia Major Depressive Disorder, Single Episode, Mild ([facility]) Hypomagnesemia Ifg (Impaired Fasting Glucose) Mixed Hyperlipidemia Vitamin D Deficiency Presents today for routine follow-up visit. Seen by Laila Ramos MD 11/05/2023. He reports bilateral hand pain and swelling a couple of weeks ago now resolved. Noted a tingling type sensation. Left fourth finger still is tender. Notes he took OTC ibuprofen with some relief. He notes hand tremor is troublesome, propranolol does help. Notes has been followed by neurologist for Parkinson's disease. Last seen by Dr. Hawk 2020. Has not recently seen a neurologist. No recent fill of donepezil on review of outside medications. Help needed at home: states no if he paces himself he does okay. HTN: Without report of headache, chest pain, palpitations, dyspnea, peripheral edema, orthopnea, fatigue, and PND. Last 14 Encounter BP Readings: Date: BP: 02/17/2024 112/66 11/05/2023 104/60 07/12/2023 116/70 03/01/2023 110/62 01/22/2023 118/68 11/02/2022 108/62 07/03/2022 108/62 06/30/2022 112/64 06/22/2022 112/66 01/27/2022 110/62 09/23/2021 100/60 08/12/2021 106/74 07/17/2021 110/60 05/22/2021 128/76 Hyperlipidemia. Doing well on current therapy . His most recent lipid panels are: Cholesterol, Total (mg/dL) Date Value 10/29/2023 175 07/09/2023 174 07/08/2020 158 09/05/2019 179 Total Cholesterol, Nonfasting (mg/dL) Date Value 05/22/2021 161 HDL Cholesterol (mg/dL) Date Value 10/29/2023 35 07/09/2023 31 07/08/2020 36 09/05/2019 30 HDL Cholesterol, Nonfasting (mg/dL) Date Value 05/22/2021 36 LDL Cholesterol (mg/dL) Date Value 10/29/2023 109 07/09/2023 104 07/08/2020 93 09/05/2019 100 LDL Cholesterol, Nonfasting (mg/dL) Date Value 05/22/2021 91 Triglyceride (mg/dL) Date Value 10/29/2023 157 07/09/2023 194 07/08/2020 145 09/05/2019 244 Triglycerides, Nonfasting (mg/dL) Date Value 05/22/2021 171 Crohns: reports currently stable, controlled. Review of Systems Constitutional: Negative. Gastrointestinal: Negative. Musculoskeletal: Positive for arthralgias. Neurological: Positive for tremors. Objective BP 112/66 Pulse 64 Resp 16 Wt 100.2 kg (221 lb) BMI 29.97 kg/m Physical Exam Vitals and nursing note reviewed. Constitutional: Appearance: Normal appearance. HENT: Head: Normocephalic and atraumatic. Eyes: Conjunctiva/sclera: Conjunctivae normal. Cardiovascular: Rate and Rhythm: Normal rate and regular rhythm. Pulses: Carotid pulses are 2+ on the right side and 2+ on the left side. Radial pulses are 2+ on the right side and 2+ on the left side. Heart sounds: Normal heart sounds. Pulmonary: Effort: Pulmonary effort is normal. Breath sounds: Normal breath sounds. Abdominal: General: Bowel sounds are normal. Palpations: Abdomen is soft. Musculoskeletal: Right hand: No swelling. Decreased strength. Normal pulse. Left hand: Swelling (mild left fourth finger) and tenderness present. Decreased strength. Normal pulse. Skin: General: Skin is warm and dry. Neurological: General: No focal deficit present. Mental Status: He is alert and oriented to person, place, and time. ALLERGIES Allergen Reactions Atorvastatin Contraindication-Medical Surgical myalgia, weakness proximal muscle Penicillins doesn't work Medications sucralfate (CARAFATE) 1 gram tablet Take 1 tablet by mouth two times a day. Mesalamine (LIALDA) 1.2 gram EC tablet Take 1 tablet by mouth two times a day. propranolol (INDERAL) 40 mg tablet Take 1 tablet by mouth three times a day. As directed folic acid 1 mg tablet Take 1 tablet by mouth two times a day. magnesium oxide (MAG-OX) 400 mg (241.3 mg magnesium) tablet Take 1 tablet by mouth once daily. sucralfate (CARAFATE) 1 gram tablet Take 1 tablet by mouth two times a day. tamsulosin (FLOMAX) 0.4 mg Take 1 capsule by mouth daily at bedtime. tamsulosin (FLOMAX) 0.4 mg Take 1 capsule by mouth daily at bedtime. lansoprazole (PREVACID) 30 mg capsule Take 1 capsule by mouth twice daily. 1/2 hr before meal. metoprolol tartrate, short acting, (LOPRESSOR) 50 mg tablet Take 1 tablet by mouth twice daily. albuterol HFA (PROAIR HFA) 90 mcg/actuation inhaler Inhale 2 Puffs as instructed every 4 hours as needed. finasteride (PROSCAR) 5 mg tablet Take 5 mg by mouth once daily. glucosamine/msm/chondrt/C/hyal (QTUPOSAZYPV-GQPZNDVYRWY-LLD ORAL) Take by mouth. MV with Sar-Cjvhwpog-Dbzegc (CENTRUM SILVER) 0.4-300-250 mg-mcg-mcg tab Take 1 tablet by mouth oncedaily. VIT C/E/ZN/COPPR/LUTEIN/ZEAXAN (PRESERVISION AREDS 2 ORAL) Take 2 capsules by mouth once daily. BETA CAROTENE ORAL Take by mouth. coenzyme Q10 (COENZYME Q-10) 100 mg cap capsule Take 1 capsule by mouth. cyanocobalamin (VITAMIN B-12) 1,000 mcg tab Take 1 tablet by mouth once daily. montelukast (SINGULAIR) 10 mg tablet Take 1 tablet by mouth daily at bedtime. sertraline (ZOLOFT) 100 mg tablet Take 2 tablets by mouth once daily. busPIRone (BUSPAR) 10 mg tablet Take 1 tablet by mouth two times a day. donepezil (ARICEPT) 10 mg tablet Take 1 tablet by mouth daily at bedtime. 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 Chronic rhinitis Diarrhea 07/16/2005 Essential and other specified forms of tremor not Parkinson's Essential hypertension, benign 07/16/2005 Hemorrhage of gastrointestinal tract, unspecified 07/16/2005 Hemorrhage of gastrointestinal tract, unspecified Inguinal hernia without mention of obstruction or gangrene, unilateral or unspecified, (not specified as recurrent) 07/16/2005 Irritable bowel syndrome 07/16/2005 Paralysis agitans (HCC) 07/16/2005 Regional enteritis of unspecified site 07/16/2005 crohn's PAST SURGICAL HISTORY Procedure Laterality Date COLONOSCOPY FLX DX W/COLLJ SPEC WHEN PFRMD 11/18/07 Diverticulosis CORRECT BUNION,SIMPLE Bunion, right ESOPHAGOGASTRODUODENOSCOPY TRANSORAL DIAGNOSTIC 06/28/2003 EGD LAPAROSCOPY SURG CHOLECYSTECTOMY Cholecystectomy, lap PAST SURGICAL HISTORY OF heart cath PAST SURGICAL HISTORY OF 11/14/2004 colonoscopy x 3 RPR UMBILICAL HERNIA < 5 YRS REDUCIBLE Hernia repair, umbilical SEPTOPLASTY/SUBMUCOUS RESECJ W/WO CARTILAGE GRF 04/01 Septoplasty Social History Tobacco Use Smoking status: Former Years: 5 Types: Cigarettes, Pipe Quit date: 11/29/1962 Years since quittin.2 Smokeless tobacco: Never Tobacco comments: Pt smoked on & off x 5 years, never a heavy smoker Substance Use Topics Alcohol use: Yes Comment: rare stawberry daquiri Drug use: No Latest Ref Rng 10/29/2023 Protein, Total 6.3 - 8.0 g/dL 6.9 Albumin 3.9 - 4.9 g/dL 4.3 Calcium 8.5 - 10.2 mg/dL 9.7 Bilirubin, Total 0.2 - 1.3 mg/dL 0.6 Alkaline Phosphatase 38 - 113 U/L 101 AST 14 - 40 U/L 22 ALT 10 - 54 U/L 15 Glucose 74 - 99 mg/dL 101 (H) BUN 9 - 24 mg/dL 22 Creatinine 0.73 - 1.22 mg/dL 1.22 Sodium 136 - 144 mmol/L 140 Potassium 3.7 - 5.1 mmol/L 4.7 Chloride 97 - 105 mmol/L 103 CO2 22 - 30 mmol/L 26 Anion Gap 9 - 18 mmol/L 11 eGFR >=60 mL/min/1.73m 59 (L) WBC 3.70 - 11.00 k/uL 7.47 RBC 4.20 - 6.00 m/uL 4.94 Hemoglobin 13.0 - 17.0 g/dL 13.6 Hematocrit 39.0 - 51.0 % 43.0 MCV 80.0 - 100.0 fL 87.0 MCH 26.0 - 34.0 pg 27.5 MCHC 30.5 - 36.0 g/dL 31.6 RDW-CV 11.5 - 15.0 % 15.4 (H) Platelet Count 150 - 400 k/uL 142 (L) MPV 9.0 - 12.7 fL 11.2 Absolute nRBC <0.01 k/uL <0.01 Cholesterol, Total <200 mg/dL 175 Triglyceride <150 mg/dL 157 (H) HDL Cholesterol >39 mg/dL 35 (L) Non HDL Cholesterol <130 mg/dL 140 (H) Fasting Time hrs 12 VLDL Cholesterol <30 mg/dL 31 (H) TC:HDL Ratio <5.10 5.00 LDL Cholesterol <100 mg/dL 109 (H) LDL:HDL Ratio <2.54 3.11 (H) Hemoglobin A1C 4.3 - 5.6 % 5.4 Estimated Average Glucose mg/dL 108 Magnesium 1.7 - 2.3 mg/dL 2.2 Uric Acid 4.0 - 8.1 mg/dL 4.3 Vitamin D 25 Hydroxy 31.0 - 80.0 ng/mL 39.9 ASSESSMENT/PLAN: 1. Crohn's disease of both small and large intestine without complication (HCC) - ICD9: 555.2, ICD10: K50.80 (primary diagnosis) But stable on current treatment. Continue unchanged for now. Continue to monitor 2. Encounter for immunization - ICD9: V03.89, ICD10: Z23 - MENINGOCOCCAL B VACCINE (BEXSERO) - MMR VACCINE (M-M-R II, PRIORIX) - HEP A VACCINE, ADULT (HAVRIX, VAQTA) - SHINGRIX PRINTED PHARMACY INSTRUCTIONS - TDAP PRINTED PHARMACY INSTRUCTIONS - HEP B VACCINE, 3-DOSE, AGE 20+ YR (ENGERIX-B, RECOMBIVAX HB) - HEP B VACCINE, 3-DOSE, AGE 20+ YR (ENGERIX-B, RECOMBIVAX HB) - HEP B VACCINE, 3-DOSE, AGE 20+ YR (ENGERIX-B, RECOMBIVAX HB) 3. Parkinson's disease, unspecified whether dyskinesia present, unspecified whether manifestations fluctuate (HCC) - ICD9: 332.0, ICD10: G20.A1 Would like to return to neurologist Dr. Hawk for further evaluation and treatment as indicated. 4. Chronic ITP (idiopathic thrombocytopenia) (HCC) - ICD9: 287.31, ICD10: D69.3 Stable, lab work today 5. Chronic bronchitis, unspecified chronic bronchitis type (HCC) - ICD9: 491.9, ICD10: J42 Without current complaints 6. Major depressive disorder, single episode, mild (HCC) - ICD9: 296.21, ICD10: F32.0 Stable on current treatment, continue unchanged, continue to monitor - SERTRALINE 100 MG TABLET - BUSPIRONE 10 MG TABLET 7. Tremor of both hands - ICD9: 781.0, ICD10: R25.[address] Hawk - CONSULT TO NEUROLOGY 8. Bilateral hand pain - ICD9: 729.5, ICD10: M79.641, M79.642 He notes improvement for now, defers further evaluation or treatment at this time Labs today-ordered by PCP Keep 4-month follow-up visit with PCP. Em Romero APRN.MEDICAL RECORDS SUPERVISOR Medical Decision Making: Problems: Moderate: 2+ stable chronic illnesses Risk: Moderate: Drug management Medical Decision Making Level: 4 - Moderate documented in this encounterMet[facility]02-13-2024 Miscellaneous Notes* Telephone Encounter - Chanelle Peguero LPN - 01/11/2024 9:45 AM EST Left a message that prescriptions were sent to the pharmacy. Chanelle Peguero LPN * Telephone Encounter - Laila Ramos MD - 01/10/2024 7:42 PM EST The following approved medication requests have been transmitted electronically. Requested Prescriptions Signed Prescriptions Disp Refills sucralfate (CARAFATE) 1 gram tablet 180 tablet 3 Sig: Take 1 tablet by mouth two times a day. Authorizing Provider: LAILA RAMOS Mesalamine (LIALDA) 1.2 gram EC tablet 180 tablet 3 Sig: Take 1 tablet by mouth two times a day. Authorizing Provider: LAILA RAMOS propranolol (INDERAL) 40 mg tablet 270 tablet 3 Sig: Take 1 tablet by mouth three times a day. As directed Authorizing Provider: LAILA RAMOS folic acid 1 mg tablet 180 tablet 3 Sig: Take 1 tablet by mouth two times a day. Authorizing Provider: LAILA RAMOS magnesium oxide (MAG-OX) 400 mg (241.3 mg magnesium) tablet 90 tablet 3 Sig: Take 1 tablet by mouth once daily. Authorizing Provider: LAILA RAMOS MD * Telephone Encounter - Rosa East LPN - 01/10/2024 2:23 PM EST Patient has been identified by name and date of : Patient phones for refill(s): Requested Prescriptions Pending Prescriptions Disp Refills sucralfate (CARAFATE) 1 gram tablet 180 tablet 3 Sig: Take 1 tablet by mouth two times a day. Mesalamine (LIALDA) 1.2 gram EC tablet 180 tablet 3 Sig: Take 1 tablet by mouth two times a day. propranolol (INDERAL) 40 mg tablet 270 tablet 3 Sig: Take 1 tablet by mouth three times a day. As directed folic acid 1 mg tablet 180 tablet 3 Sig: Take 1 tablet by mouth two times a day. magnesium oxide (MAG-OX) 400 mg (241.3 mg magnesium) tablet 90 tablet 3 Sig: Take 1 tablet by mouth once daily. Date of last office visit in primary care: 11/05/2023 Date of next office visit in primary care: 02/16/2024 Patient upset that we do not fill [facility]. Please advise. Thank you. Rosa East LPN. documented in this encounterMet[facility]12-21-2023 Miscellaneous Notes* Telephone Encounter - Fransisca Park LPN - 2023 11:22 AM EST Spoke to [facility] pharmacist, Patient picked up RX. Fransisca Park LPN documented in this encounterMet[facility]12-08-2023 Miscellaneous Notes* Telephone Encounter - Saadia Roberts Ma - 11/05/2023 12:25 PM EST Pt notified. Saadia Roberts Ma * Telephone Encounter - Chloé Farrell APRN.CHIPPING MACHINE OPERATOR - 11/05/2023 12:11 PM EST New scripts signed, let patient know. Thanks * Telephone Encounter - Eda Garrison, SOBEIDA - 11/05/2023 9:10 AM EST Left vm letting patient know Rx's sent to pharmacy. Looks like usp was sent to local and short term was sent to mail order. Pended with correct pharmacies. Patient phoned back and spoke to another triage nurse (who teams messaged this nurse), and is awareRx's were sent to wrong pharmacies and is aware pcp will be notified. Attempted to cancel at [facility], but they do not open until 10 am. Will try again then. Cancelled short supply sent to . Cancelled long supply at [facility]. * Telephone Encounter - Laila Ramos MD - 11/05/2023 1:47 AM EST The following approved medication requests have been transmitted electronically. Requested Prescriptions Signed Prescriptions Disp Refills sucralfate (CARAFATE) 1 gram tablet 180 tablet 3 Sig: Take 1 tablet by mouth two times a day. Authorizing Provider: LAILA RAMOS sucralfate (CARAFATE) 1 gram tablet 30 tablet 0 Sig: Take 1 tablet by mouth two times a day. Authorizing Provider: LAILA RAMOS MD * Telephone Encounter - Les Coffman Ma - 11/02/2023 10:26 AM EST TC to pt. He is requesting carafate. Short term to [facility] and usp to Mail order. * Telephone Encounter - Jes Shin - 11/01/2023 4:30 PM EST Evelia is calling Laila Ramos MD today with concern regarding medication. Patient is asking fora nurse to return his call to go over his medications. Please return call. No chief complaint on file. Patient has been identified by name and birthdate. Duration of symptoms: N/A Person calling: self Call patient at: on cell [phone] (home) [phone] (cell) Was an appointment scheduled: No Closing statement: Results or non-symptom based questions: [facility] you for [facility], your call will be returned within the next business day. Jes Shin documented in this encounterMet[facility]health [facility]12-05-2023 Miscellaneous Notes* Telephone Encounter - Les Coffman Ma - 11/02/2023 10:40 AM EST Addressed in another encounter. * Telephone Encounter - Jes Shin - 11/01/2023 4:27 PM EST Evelia is calling Laila Ramos MD today to request a Refill Request for medication that is not current on med list. Patient asking for sucralfate (CARAFATE) 1 gram tablet (Discontinued). Please send medication to [facility]. Patient also asking for a short term prescription to be called into [facility]. Patient has been identified by name and birthdate. Duration of symptoms: N/A Person calling: self Call patient at: on cell [phone] (home) [phone] (cell) Was an appointment scheduled: No Closing statement: Results or non-symptom based questions: Thank you for calling [facility], your call will be returned within the next business day. Jes Shin documented in this encounterMetrohealth [facility] Center08-29-2023 Miscellaneous Notes* Telephone Encounter - Fransisca Park LPN - 07/27/2023 4:16 PM EDT Patient has been identified by name and date of : Yes, Patient phones for refill(s): Requested Prescriptions Pending Prescriptions Disp Refills tamsulosin (FLOMAX) 0.4 mg 90 capsule 3 Sig: Take 1 capsule by mouth daily at bedtime. Date of last office visit in primary care: 07/12/2023 4 month follow-up: 11/05/2023 Last 2 Encounter Wt Readings: Date: Wt: 07/12/2023 98 kg (216 lb) 03/01/2023 96.2 kg (212 lb) Previous labs/tests for medication: Not applicable Please advise. Thank you. Fransisca Park LPN * Telephone Encounter - Leeann Lucia - 07/27/2023 3:33 PM EDT Patient has been identified by name and date of : Yes Requested Prescriptions Pending Prescriptions Disp Refills tamsulosin (FLOMAX) 0.4 mg 90 capsule 3 Sig: Take 1 capsule by mouth daily at bedtime. RX INSTRUCTIONS: Patient aware RX escripted to mail away pharmacy. No need to notify patient. Leeann Nolen Pss documented in this encounterMetrohealth [facility]08-15-2023 Miscellaneous Notes* Telephone Encounter - Lizett Lemus LPN - 07/13/2023 11:11 AM EDT Patient was notified referral was placed. Patient states he has seen Dr. Hayes's office in the past and would like referral sent to them. Referral faxed * Telephone Encounter - Em Romero APRN.CHERISE - 07/13/2023 10:49 AM EDT Done, recommend he be seen at his earliest opportunity.Check to see if wanting to see Dr Addison group or elsewhere * Telephone Encounter - Ana Gayle RN - 07/13/2023 10:19 AM EDT Pt requesting ENT referral be placed. Please call patient once referral is placed and assist patient with scheduling. Thank you. * Telephone Encounter - Ana Gayle RN - 07/13/2023 9:42 AM EDT Patient reports he was seen by Dr. Ramos yesterday and during visit his right ear was flushed due to wax present. Patient states as soon as he left office yesterday and got into his car he noticedhe was not hearing out of his right ear. Calling this morning to ask for advise. -reports no hearing out of right ear -can hear out of left ear -ringing in ear -denies pain -denies new or worsening dizziness Appt made with Em Romero CNP for today at 11:20am. Please call patient if appt is not advised atthis time. Ana Gayle RN documented in this encounterMetrohealth [facility] Center08-14-2023 History of Present illness Narrative* Laila Ramos MD - 07/12/2023 1:18 PM EDT This note was created using [employer]. Subjective Evelia Nails Jr. is a 82 year old male. HISTORY Evelia Nails Jr. is a 82 year old gentleman here for yearly exam and follow up appointment. Noted ongoing reflux issues. Meant to change to twice daily and dispensed 180 but forgot to change sig so only 90 sent. Would like a replacement for the alfuzosin because pill starts to dissolve in esophagus. Otherwise, stable. Tremors note better. A little worse in nondominant right hand, and was already bad on left. Wonders if arthritis in elbows causing tendon pain. In epicondylitis areas though. Topical roll on has helped a little. Worse when first gets up. 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 Chronic rhinitis Diarrhea 07/16/2005 Essential and other specified forms of tremor not Parkinson's Essential hypertension, benign 07/16/2005 Hemorrhage of gastrointestinal tract, unspecified 07/16/2005 Hemorrhage of gastrointestinal tract, unspecified Inguinal hernia without mention of obstruction or gangrene, unilateral or unspecified, (not specified as recurrent) 07/16/2005 Irritable bowel syndrome 07/16/2005 Paralysis agitans (HCC) 07/16/2005 Regional enteritis of unspecified site 07/16/2005 crohn's Current Outpatient Medications Medication Sig metoprolol tartrate, short acting, (LOPRESSOR) 50 mg tablet Take 1 tablet by mouth twice daily. alfuzosin SR (UROXATRAL) 10 mg 24 hr tablet Take 1 tablet by mouth once daily. metoprolol tartrate, short acting, (LOPRESSOR) 50 mg tablet Take 1 tablet by mouth twice daily. montelukast (SINGULAIR) 10 mg tablet Take 1 tablet by mouth daily at bedtime. sertraline (ZOLOFT) 100 mg tablet Take 2 tablets by mouth once daily. busPIRone (BUSPAR) 10 mg tablet Take 1 tablet by mouth twice daily. lansoprazole (PREVACID) 30 mg capsule Take 1 capsule by mouth daily before breakfast. 1/2 hr beforemeal. Mesalamine (LIALDA) 1.2 gram EC tablet Take 1 tablet by mouth twice daily. propranolol (INDERAL) 40 mg tablet Take 1 tablet by mouth three times daily. As directed donepezil (ARICEPT) 10 mg tablet Take 1 tablet by mouth daily at bedtime. folic acid 1 mg tablet Take 1 tablet by mouth twice daily. sucralfate (CARAFATE) 1 gram tablet Take 1 tablet by mouth twice daily. albuterol HFA (PROAIR HFA) 90 mcg/actuation inhaler Inhale 2 Puffs as instructed every 4 hours as needed. glucosamine/msm/chondrt/C/hyal (THEUHMJZLHR-DADRGHOBPEU-WUM ORAL) Take by mouth. MV with Tsb-Qjxufixl-Lqmblh (CENTRUM SILVER) 0.4-300-250 mg-mcg-mcg tab Take 1 tablet by mouth oncedaily. coenzyme Q10 (COENZYME Q-10) 100 mg cap capsule Take 1 capsule by mouth. cyanocobalamin (VITAMIN B-12) 1,000 mcg tab Take 1 tablet by mouth once daily. tamsulosin (FLOMAX) 0.4 mg Take 1 capsule by mouth daily at bedtime. tamsulosin (FLOMAX) 0.4 mg Take 1 capsule by mouth daily at bedtime. magnesium oxide (MAG-OX) 400 mg (241.3 mg magnesium) tablet Take 1 tablet by mouth twice daily. (Patient taking differently: Take 400 mg by mouth once daily.) finasteride (PROSCAR) 5 mg tablet Take 5 mg by mouth once daily. VIT C/E/ZN/COPPR/LUTEIN/ZEAXAN (PRESERVISION AREDS 2 ORAL) Take 2 capsules by mouth once daily. BETA CAROTENE ORAL Take by mouth. No current facility-administered medications for this visit. ALLERGIES Allergen Reactions Atorvastatin Contraindication-Medical Surgical myalgia, weakness proximal muscle Penicillins doesn't work FAMILY HISTORY Problem Relation Age of Onset Emphysema Father other (depression [Other]) Mother Heart Mother Hypertension No Family History Coronary Artery Disease No Family History Thyroid No Family History Diabetes No Family History Hyperlipidemia No Family History Blood Disease No Family History Blood Clots No Family History Stroke No Family History DVT No Family History Factor 5 Leiden No Family History Systemic Lupus Erythematosus No Family History Multiple Sclerosis No Family History Bipolar disorder No Family History Schizophrenia No Family History Depression No Family History Dementia No Family History Alzheimer's Disease No Family History Parkinson s Disease No Family History Aneurysm No Family History Social History Tobacco Use Smoking status: Former Years: 5 Types: Cigarettes, Pipe Quit date: 11/29/1962 Years since quittin.6 Smokeless tobacco: Never Tobacco comments: Pt smoked on & off x 5 years, never a heavy smoker Substance Use Topics Alcohol use: Yes Alcohol/week: 1.7 standard drinks of alcohol Comment: rare stawberry daquiri Drug use: No Review of Systems Objective BP 116/70 Pulse 70 Resp 16 Ht 182.9 cm (6') Wt 98 kg (216 lb) BMI 29.29 kg/m Last 5 Encounter Wt Readings: Date: Wt: 07/12/2023 98 kg (216 lb) 03/01/2023 96.2 kg (212 lb) 01/22/2023 96.2 kg (212 lb) 11/17/2022 96.6 kg (213 lb) 11/02/2022 96.6 kg (213 lb) No waist measurement recorded Estimated body mass index is 29.29 kg/m as calculated from the following: Height as of this encounter: 182.9 cm (6'). Weight as of this encounter: 98 kg (216 lb). Last 5 Encounter BP Readings: Date: BP: 07/12/2023 116/70 03/01/2023 110/62 01/22/2023 118/68 11/02/2022 108/62 07/03/2022 108/62 Physical Exam Vitals reviewed. Constitutional: Appearance: Normal appearance. HENT: Head: Normocephalic. Right Ear: Tympanic membrane, ear canal and external ear normal. Left Ear: Tympanic membrane, ear canal and external ear normal. Mouth/Throat: Mouth: Mucous membranes are moist. Pharynx: Oropharynx is clear. Eyes: Extraocular Movements: Extraocular movements intact. Conjunctiva/sclera: Conjunctivae normal. Neck: Vascular: No carotid bruit. Cardiovascular: Rate and Rhythm: Normal rate and regular rhythm. Pulses: Normal pulses. Heart sounds: Normal heart sounds. Pulmonary: Effort: Pulmonary effort is normal. Breath sounds: Normal breath sounds. Abdominal: General: Abdomen is flat. There is no distension. Palpations: Abdomen is soft. There is no mass. Musculoskeletal: Cervical back: Normal range of motion. Right lower leg: No edema. Left lower leg: No edema. Skin: General: Skin is warm and dry. Neurological: General: No focal deficit present. Mental Status: He is alert and oriented to person, place, and time. Psychiatric: Attention and Perception: Attention normal. Mood and Affect: Mood normal. Speech: Speech normal. Behavior: Behavior normal. Thought Content: Thought content normal. Cognition and Memory: Cognition normal. Judgment: Judgment normal. Component Latest Ref Rng & Units 02/05/2022 06/22/2022 01/22/2023 07/09/2023 Protein, Total 6.3 - 8.0 g/dL 7.1 7.2 7.0 7.2 Albumin 3.9 - 4.9 g/dL 4.3 4.0 4.4 4.2 Calcium 8.5 - 10.2 mg/dL 9.5 9.3 9.4 9.6 Bilirubin, Total 0.2 - 1.3 mg/dL 0.6 0.5 0.6 0.8 Alkaline Phosphatase 38 - 113 U/L 98 86 93 102 AST 14 - 40 U/L 21 20 18 14 ALT 10 - 54 U/L 14 16 16 12 Glucose 74 - 99 mg/dL 96 103 (H) 103 (H) 114 (H) BUN 9 - 24 mg/dL 18 21 18 20 Creatinine 0.73 - 1.22 mg/dL 1.16 1.29 (H) 1.18 1.21 Sodium 136 - 144 mmol/L 139 140 139 140 Potassium 3.7 - 5.1 mmol/L 4.6 4.4 5.0 4.6 Chloride 97 - 105 mmol/L 103 105 104 103 CO2 22 - 30 mmol/L 29 24 28 24 Anion Gap 9 - 18 mmol/L 7 (L) 11 7 (L) 13 eGFR >=60 mL/min/1.73m 63 56 (L) 62 60 WBC 3.70 - 11.00 k/uL 7.20 7.42 7.19 RBC 4.20 - 6.00 m/uL 5.05 4.68 5.13 Hemoglobin 13.0 - 17.0 g/dL 14.1 13.3 14.5 Hematocrit 39.0 - 51.0 % 45.3 41.9 45.9 MCV 80.0 - 100.0 fL 89.7 89.5 89.5 MCH 26.0 - 34.0 pg 27.9 28.4 28.3 MCHC 30.5 - 36.0 g/dL 31.1 31.7 31.6 RDW-CV 11.5 - 15.0 % 14.7 16.2 (H) 14.6 Platelet Count 150 - 400 k/uL 154 136 (L) 133 (L) MPV 9.0 - 12.7 fL 11.1 11.5 10.8 Absolute nRBC <0.01 k/uL <0.01 <0.01 <0.01 Cholesterol, Total <200 mg/dL 181 183 174 Triglyceride <150 mg/dL 156 (H) 121 194 (H) HDL Cholesterol >39 mg/dL 36 (L) 38 (L) 31 (L) Non HDL Cholesterol <130 mg/dL 145 (H) 145 (H) 143 (H) Fasting Time hrs 12 12 12 VLDL Cholesterol <30 mg/dL 31 (H) 24 39 (H) TC:HDL Ratio <5.10 5.03 4.82 5.61 (H) LDL Cholesterol <100 mg/dL 114 (H) 121 (H) 104 (H) LDL:HDL Ratio <2.54 3.17 (H) 3.18 (H) 3.35 (H) Hemoglobin A1C 4.3 - 5.6 % 5.3 Estimated Average Glucose mg/dL 105 Vitamin D 25 Hydroxy 31.0 - 80.0 ng/mL 31.3 52.4 Magnesium 1.7 - 2.3 mg/dL 2.4 (H) 2.5 (H) 2.4 (H) TSH 0.270 - 4.200 mIU/L 2.750 Free T4 0.9 - 1.7 ng/dL 1.2 Free T3 2.3 - 4.1 pg/mL 1.8 (L) Uric Acid 4.0 - 8.1 mg/dL 4.1 Assessment and Plan Encounter Diagnosis ICD-10-CM 1. Essential hypertension I10 COMP METABOLIC PANEL CBC 2. Benign prostatic hyperplasia with nocturia N40.1 R35.1 3. Vitamin D deficiency E55.9 VITAMIN D 25 HYDROXY 4. Mixed hyperlipidemia E78.2 LIPID PANEL BASIC 5. IFG (impaired fasting glucose) R73.01 HGB A1C COMP METABOLIC PANEL 6. Bilateral impacted cerumen H61.23 AMBULATORY EAR LAVAGE/IRRIGATION 7. Parkinson disease (HCC) G20 8. Essential tremor G25.0 9. Chronic ITP (idiopathic thrombocytopenia) ([facility]) D69.3 10. Crohn's disease of both small and large intestine without complication ([facility]) K50.80 11. Major depressive disorder, single episode, mild ([facility]) F32.0 12. Encounter for long-term current use of medication Z79.899 COMP METABOLIC PANEL CBC MAGNESIUM BLD URIC ACID BLOOD Above issues addressed with patient. Patient involved in shared decision making for management of medical issues. History and medications reviewed. Epic updated as needed Refills and/or prescriptions taken care of and meds adjusted as indicated after reviewed history, exam and labs. Health Maintenance reviewed. Updated record and/or ordered tests as recorded. Encouraged on efforts at healthy diet and regular exercise and adequate sleep. Needs to keep working on diet and exercise with lifestyle changes for effective weight loss as well as prevention of DM,and control of BP and lipids. Adjusting med for BPH as discussed. Noted plans to drive this to visit family member in [place]. Encouraged to stay hydrated and stop every 2 to 3 hours and walk. Be rested before drives. Discussed management of essential tremors. Consider increasing propranolol and taper down metoprolol. .Further evaluation and treatment as indicated. Follow up with specialists: neurology, GI, and cardiology as needed. I spent a total of 48 minutes on the date of the service which included [id number] patient care, completing clinical documentation, performing a medically appropriate examination, counseling and educating the patient/family/caregiver, ordering medications, tests, or procedures, independently interpreting results (not separately reported), and communicating results to the patient/family/caregiver. Laila Ramos MD documented in this encounterMet[facility]07-20-2023 Miscellaneous Notes* Telephone Encounter - Nicole Lora HENRIETTA - 06/17/2023 3:57 PM EDT Reviewed with pt rx sent to the [facility] for 90 days and a year. He says he is set up with automatic refills. He's not getting them. He's asking for the office to send rx again. * Telephone Encounter - Ana Mix - 06/17/2023 3:12 PM EDT Patient has been identified by name and date of : Yes Last office visit in this department: Visit date not found RX INSTRUCTIONS: Patient aware RX will be sent to pharmacy. No need to notify patient. Patient phones requesting refills as follows: Requested Prescriptions Pending Prescriptions Disp Refills metoprolol tartrate, short acting, (LOPRESSOR) 50 mg tablet 60 tablet 0 Sig: Take 1 tablet by mouth twice daily. Please review and advise. Ana Moura documented in this encounterMet[facility]05-15-2023 Miscellaneous Notes* Telephone Encounter - Laila Ramos MD - 04/12/2023 12:57 PM EDT Okayed * Telephone Encounter - Chanelle Peguero LPN - 04/12/2023 10:16 AM EDT Yes pt is taking Flomax also. Please send 90 day supply on the Uroxatral to [facility]. Chanelle Peguero LPN * Telephone Encounter - Fransisca Park LPN - 04/07/2023 12:19 PM EDT Patient is getting all meds from [facility], reports he is taking Uroxatral as written. Evelia is currently at a restaurant, will check meds he is taking to be sure he is taking Flomax. Patient to call back and speak to a nurse. Fransisca Park LPN * Telephone Encounter - Em Romero APRN.CNS - 04/06/2023 4:50 PM EDT Can we verify that he is still taking this. Check with pharmacy to see if any recent fills of this medication. Chart review shows no recent refills and that he is taking Flomax. * Telephone Encounter - Fransisca Park LPN - 04/06/2023 10:14 AM EDT Patient has been identified by name and date of : Yes Patient phones for refill(s): Requested Prescriptions Pending Prescriptions Disp Refills alfuzosin SR (UROXATRAL) 10 mg 24 hr tablet Sig: Take 1 tablet by mouth once daily. Date of last office visit in primary care: 03/01/2023 Annual: 07/12/2023 Last 2 Encounter Wt Readings: Date: Wt: 03/01/2023 96.2 kg (212 lb) 01/22/2023 96.2 kg (212 lb) Previous labs/tests for medication: Not applicable Please advise. Thank you. Fransisca Park LPN * Telephone Encounter - Audrey Singer - 04/06/2023 10:09 AM EDT Patient has been identified by name and date of : Yes, Provider Dr. Ramos Date 04/06/23 Time 10:10 Patient phones for refill(s): Requested Prescriptions Pending Prescriptions Disp Refills alfuzosin SR (UROXATRAL) 10 mg 24 hr tablet Sig: Take 1 tablet by mouth once daily. Date of last office visit in primary care: 03/01/23 Last 2 Encounter Wt Readings: Date: Wt: 03/01/2023 96.2 kg (212 lb) 01/22/2023 96.2 kg (212 lb) Previous labs/tests for medication: Not applicable Please advise. Thank you. Audrey Singer documented in this encounterMetrohealth [facility]02-24-2023 Instructions* Patient Instructions* Laila Ramos MD - 01/22/2023 9:12 AM EST Consider drinking warmer water (not ice cold) Double up the Prevacid. Mucinex can help loosen the mucus. documented in this encounterMetrohealth [facility] Center02-24-2023 History of Present illness Narrative* Laila Ramos MD - 01/22/2023 9:00 AM EST This note was created using [employer]. Subjective Evelia Nails Jr. is a 82 year old male. Patient presents with: Established Patient: Chronic moist productive cough SUBJECTIVE: Evelia Nails Jr. is a 82 year old year old gentleman here today for follow up appointment for review of medical conditions. Reflux appears to be cause of chronic cough, Getting pill stuck once a month. Feels like sticks. Especially larger pill--sometimes comes back up Also gets congestion in chest and has to cough up mucus. Multiple times an hour. PFTs were normal. Aware of his chronic bronchitis issue and predisposition to infection (bronchitis). Did see Dr. Hayes and laryngoscopy was done. Told some age related changes. Noted sinuses constantly running. Drinks cold water all day. Thick mucus noted. Plans to drop off copy. Anastacia Hyde and Juani lipscomb his surrogate decision makers 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 Chronic rhinitis Diarrhea 07/16/2005 Essential and other specified forms of tremor not Parkinson's Essential hypertension, benign 07/16/2005 Hemorrhage of gastrointestinal tract, unspecified 07/16/2005 Hemorrhage of gastrointestinal tract, unspecified Inguinal hernia without mention of obstruction or gangrene, unilateral or unspecified, (not specified as recurrent) 07/16/2005 Irritable bowel syndrome 07/16/2005 Paralysis agitans (HCC) 07/16/2005 Regional enteritis of unspecified site 07/16/2005 crohn's Current Outpatient Medications Medication Sig Mesalamine (LIALDA) 1.2 gram EC tablet Take 1 tablet by mouth twice daily. propranolol (INDERAL) 40 mg tablet Take 1 tablet by mouth three times daily. As directed donepezil (ARICEPT) 10 mg tablet Take 1 tablet by mouth daily at bedtime. folic acid 1 mg tablet Take 1 tablet by mouth twice daily. sucralfate (CARAFATE) 1 gram tablet Take 1 tablet by mouth twice daily. tamsulosin (FLOMAX) 0.4 mg Take 1 capsule by mouth daily at bedtime. metoprolol tartrate, short acting, (LOPRESSOR) 50 mg tablet Take 1 tablet by mouth twice daily. albuterol HFA (PROAIR HFA) 90 mcg/actuation inhaler Inhale 2 Puffs as instructed every 4 hours as needed. sertraline (ZOLOFT) 100 mg tablet Take 2 tablets by mouth once daily. busPIRone (BUSPAR) 10 mg tablet Take 1 tablet by mouth twice daily. montelukast (SINGULAIR) 10 mg tablet Take 1 tablet by mouth daily at bedtime. lansoprazole (PREVACID) 30 mg capsule Take 1 capsule by mouth daily before breakfast. 1/2 hr beforemeal. magnesium oxide (MAG-OX) 400 mg (241.3 mg magnesium) tablet Take 1 tablet by mouth twice daily. (Patient taking differently: Take 400 mg by mouth once daily.) alfuzosin SR (UROXATRAL) 10 mg 24 hr tablet Take 10 mg by mouth once daily. glucosamine/msm/chondrt/C/hyal (WTBCFUMYAKE-VNSXWVUNDJS-EEF ORAL) Take by mouth. MV with Ckd-Eftulwsa-Evjkmz (CENTRUM SILVER) 0.4-300-250 mg-mcg-mcg tab Take 1 tablet by mouth oncedaily. VIT C/E/ZN/COPPR/LUTEIN/ZEAXAN (PRESERVISION AREDS 2 ORAL) Take 2 capsules by mouth once daily. coenzyme Q10 (COENZYME Q-10) 100 mg cap capsule Take 1 capsule by mouth. cyanocobalamin (VITAMIN B-12) 1,000 mcg tab Take 1 tablet by mouth once daily. sucralfate (CARAFATE) 1 gram tablet Take 1 tablet by mouth twice daily. (Patient not taking: Reported on 01/22/2023) metoprolol tartrate, short acting, (LOPRESSOR) 50 mg tablet Take 1 tablet by mouth twice daily. (Patient not taking: Reported on 01/22/2023) tamsulosin (FLOMAX) 0.4 mg Take 1 capsule by mouth daily at bedtime. (Patient not taking: Reported on 01/22/2023) finasteride (PROSCAR) 5 mg tablet Take 5 mg by mouth once daily. (Patient not taking: No sig reported) BETA CAROTENE ORAL Take by mouth. (Patient not taking: Reported on 11/02/2022) No current facility-administered medications for this visit. Review of Systems Objective BP 118/68 Pulse 68 Temp 36.6 C (97.8 F) Resp 18 Wt 96.2 kg (212 lb) SpO2 96% BMI 29.99 kg/m Physical Exam Vitals reviewed. Constitutional: Appearance: Normal appearance. Eyes: Conjunctiva/sclera: Conjunctivae normal. Cardiovascular: Rate and Rhythm: Normal rate and regular rhythm. Heart sounds: Normal heart sounds. Pulmonary: Effort: Pulmonary effort is normal. Breath sounds: Normal breath sounds. Skin: General: Skin is warm and dry. Neurological: General: No focal deficit present. Mental Status: He is alert and oriented to person, place, and time. Psychiatric: Attention and Perception: Attention and perception normal. Mood and Affect: Mood and affect normal. Speech: Speech normal. Behavior: Behavior normal. Thought Content: Thought content normal. Cognition and Memory: Cognition and memory normal. Judgment: Judgment normal. Assessment and Plan Encounter Diagnosis ICD-10-CM 1. Esophageal dysphagia R13.19 pills noted 2. Chronic cough R05.3 3. Chronic bronchitis, unspecified chronic bronchitis type (HCC) J42 4. Essential hypertension I10 Above issues addressed with patient. Patient involved in shared decision making for management of medical issues. History and medications reviewed. Epic updated as needed Refills and/or prescriptions taken care of and meds adjusted as indicated after reviewed history, exam and labs. Health Maintenance reviewed. Updated record and/or ordered tests as recorded. Encouraged on efforts at healthy diet and regular exercise and adequate sleep. Would recommend EGD at some point given usp PPI. Laila Ramos MD documented in this encounterMet[facility]02-22-2023 Miscellaneous Notes* Telephone Encounter - Les Coffman Ma - 01/20/2023 10:51 AM EST Patient scheduled for this Wednesday with PCP. Prefers to see her. * Telephone Encounter - Chloé Farrell APRN.CNP - 01/20/2023 10:35 AM EST Sounds like the issue is more related to the drainage than a lung issue. Can we see if he would be willing to come in for an appointment to discuss some treatment options? Thanks! * Telephone Encounter - Les Coffman Ma - 01/20/2023 10:27 AM EST Still has persistent cough with phlegm, throat congestion. He states that he has a lot of sinus issues and this happens about a dozen times per day. * Telephone Encounter - Chloé Farrell APRN.CNP - 01/20/2023 9:01 AM EST Patients lung function testing from October was normal, if still having issues with cough ect. Then please let us know. Thanks documented in this encounterMetrohealth [facility]02-13-2023 Miscellaneous Notes* Telephone Encounter - Jes Shin - 01/11/2023 11:01 AM EST Patient has been identified by name and date of : Yes Requested Prescriptions Pending Prescriptions Disp Refills Mesalamine (LIALDA) 1.2 gram EC tablet 180 tablet 3 Sig: Take 1 tablet by mouth twice daily. propranolol (INDERAL) 40 mg tablet 270 tablet 3 Sig: Take 1 tablet by mouth three times daily. As directed sucralfate (CARAFATE) 1 gram tablet 15 tablet 0 Sig: Take 1 tablet by mouth twice daily. metoprolol tartrate, short acting, (LOPRESSOR) 50 mg tablet 60 tablet 0 Sig: Take 1 tablet by mouth twice daily. donepezil (ARICEPT) 10 mg tablet 90 tablet 3 Sig: Take 1 tablet by mouth daily at bedtime. BELINDA-11/02/22 Labs-11/02/22 NOV-03/01/23 RX INSTRUCTIONS: Patient aware RX will be sent to pharmacy. No need to notify patient. Jes Shin documented in this encounterMet[facility]-02-[facility]23 Miscellaneous Notes* Telephone Encounter - Glenys Garcia RN - 12/31/2022 3:51 PM EST Patient calling for refill of Metoprolol to [facility]. Advised refills available at pharmacy.He will contact pharmacy. Glenys Garcia RN documented in this encounterMetro[facility]12-20-2022 Procedure note* SACHI Dang - 11/17/2022 11:25 AM ESTAssociated Order(s): NITRIC OXIDE, EXHALED RESPIRATORY THERAPY ORAL EXHALED NITRIC OXIDE SERVICE DATE: 11/17/2022 SERVICE TIME: 11:25 AM Oral Exhaled Nitric Oxide measurement: 14.0 (ppb) Normal: Adult 5-20 ppb, pediatric (<12 years) 5-15 ppb High Normal / Increased: Adult 20-35 ppb, pediatric (<12 years) 15-25 ppb Moderately raised exhaled Nitric Oxide may indicate underlying inflammation, but note that: Cold and influenza can raise exhaled Nitric Oxide and some patients have higher baseline exhaled Nitric Oxide levels than others. High: Adult >35 ppb, pediatric (<12 years) >25 ppb Indicative of ongoing eosinophilic inflammation. Symptomatic patient likely to respond to steroids. Possible causes (if already on steroids): Poor compliance, recent allergen exposure, steroid dose inadequate, and steroid resistance. Note that not all patients with high exhaled nitric oxide levels display symptoms. Oral Exhaled Nitric Oxide measurement (Previous Encounters) Test Date Oral Exhaled Nitric Oxide (ppb) 11/17/2022 14.0 NAME: SACHI Dang PATIENT NAME: Evelia Nails JrZaire DATE: November 17, 2022 TIME: 11:25 AM documented in this encounterMetro[facility]12-20-2022 History of Present illness Narrative* SACHI Dang - 11/17/2022 11:23 AM EST PULM FUNCTION SMARTBLOCK: Provider: Laila Ramos MD Assisting Tech: SACHI Dang Spirometry: 1 LV - Box: 1 Exhaled Nitric Oxide: 1 documented in this encounterMetrohealth [facility]12-05-2022 History of Present illness Narrative* Laila Ramos MD - 11/02/2022 10:20 AM EST This note was created using allyDVMriter. Subjective Evelia Nails Jr. is a 81 year old male. Patient presents with: Follow Up SUBJECTIVE: Evelia Nails Jr. is a 81 year old year old gentleman here today for 4 month follow up appointment for review of medical conditions. Reviewed note from Dr. Hayes. Was told to stay on PPI and consider PFTs. Still gets a lot of post nasal drainage. Coughs up thick mucus off and on all day and night. Sometimes coughs when lays down to go to bed. Sometimes wakes up coughing. Decreased exercise tolerance noted. Not very active at baseline. Not using MyChart now. Issues with medication refills noted. Turned quickly and fell once. Got dizzy when turned head and went to turn with walking. Did not get hurt since fell on carpet. Needs lights to keep balance. Does have; will drop off copy. Maureen Hyde is his HCDPOA (contact info on file). 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 Chronic rhinitis Diarrhea 07/16/2005 Essential and other specified forms of tremor not Parkinson's Essential hypertension, benign 07/16/2005 Hemorrhage of gastrointestinal tract, unspecified 07/16/2005 Hemorrhage of gastrointestinal tract, unspecified Inguinal hernia without mention of obstruction or gangrene, unilateral or unspecified, (not specified as recurrent) 07/16/2005 Irritable bowel syndrome 07/16/2005 Paralysis agitans (HCC) 07/16/2005 Regional enteritis of unspecified site 07/16/2005 crohn's Current Outpatient Medications Medication Sig sucralfate (CARAFATE) 1 gram tablet Take 1 tablet by mouth twice daily. sucralfate (CARAFATE) 1 gram tablet Take 1 tablet by mouth twice daily. tamsulosin (FLOMAX) 0.4 mg Take 1 capsule by mouth daily at bedtime. tamsulosin (FLOMAX) 0.4 mg Take 1 capsule by mouth daily at bedtime. metoprolol tartrate, short acting, (LOPRESSOR) 50 mg tablet Take 1 tablet by mouth twice daily. metoprolol tartrate, short acting, (LOPRESSOR) 50 mg tablet Take 1 tablet by mouth twice daily. albuterol HFA (PROAIR HFA) 90 mcg/actuation inhaler Inhale 2 Puffs as instructed every 4 hours as needed. folic acid 1 mg tablet Take 1 tablet by mouth twice daily. sertraline (ZOLOFT) 100 mg tablet Take 2 tablets by mouth once daily. donepezil (ARICEPT) 10 mg tablet Take 1 tablet by mouth daily at bedtime. busPIRone (BUSPAR) 10 mg tablet Take 1 tablet by mouth twice daily. montelukast (SINGULAIR) 10 mg tablet Take 1 tablet by mouth daily at bedtime. lansoprazole (PREVACID) 30 mg capsule Take 1 capsule by mouth daily before breakfast. 1/2 hr beforemeal. propranolol (INDERAL) 40 mg tablet Take 1 tablet by mouth three times daily. As directed Mesalamine (LIALDA) 1.2 gram EC tablet Take 1 tablet by mouth twice daily. magnesium oxide (MAG-OX) 400 mg (241.3 mg magnesium) tablet Take 1 tablet by mouth twice daily. (Patient taking differently: Take 400 mg by mouth once daily. ) alfuzosin SR (UROXATRAL) 10 mg 24 hr tablet Take 10 mg by mouth once daily. finasteride (PROSCAR) 5 mg tablet Take 5 mg by mouth once daily. glucosamine/msm/chondrt/C/hyal (CXRGJDEMABS-KEGBFBBCWHD-HVY ORAL) Take by mouth. MV with Wij-Jpirpdsl-Dqwpdj (CENTRUM SILVER) 0.4-300-250 mg-mcg-mcg tab Take 1 tablet by mouth oncedaily. VIT C/E/ZN/COPPR/LUTEIN/ZEAXAN (PRESERVISION AREDS 2 ORAL) Take 2 capsules by mouth once daily. BETA CAROTENE ORAL Take by mouth. coenzyme Q10 (COQ-10) 100 mg cap Take 1 capsule by mouth. cyanocobalamin (VITAMIN B-12) 1,000 mcg Tab Take 1 tablet by mouth once daily. No current facility-administered medications for this visit. Review of Systems Objective BP 108/62 Pulse 62 Wt 96.6 kg (213 lb) SpO2 96% BMI 29.71 kg/m Last 5 Encounter Wt Readings: Date: Wt: 11/02/2022 96.6 kg (213 lb) 07/03/2022 95.7 kg (211 lb) 06/30/2022 94.8 kg (209 lb) 06/22/2022 94.3 kg (208 lb) 01/27/2022 96.6 kg (213 lb) No waist measurement recorded Estimated body mass index is 29.71 kg/m as calculated from the following: Height as of 09/23/21: 180.3 cm (5' 11). Weight as of this encounter: 96.6 kg (213 lb). Last 5 Encounter BP Readings: Date: BP: 11/02/2022 108/62 07/03/2022 108/62 06/30/2022 112/64 06/22/2022 112/66 01/27/2022 110/62 Physical Exam Vitals reviewed. Constitutional: Appearance: Normal appearance. Eyes: Conjunctiva/sclera: Conjunctivae normal. Cardiovascular: Rate and Rhythm: Normal rate and regular rhythm. Heart sounds: Normal heart sounds. Pulmonary: Effort: Pulmonary effort is normal. Breath sounds: Normal breath sounds. Skin: General: Skin is warm and dry. Neurological: General: No focal deficit present. Mental Status: He is alert and oriented to person, place, and time. Psychiatric: Mood and Affect: Mood normal. Behavior: Behavior normal. Thought Content: Thought content normal. Judgment: Judgment normal. Component Latest Ref Rng & Units 02/05/2022 06/22/2022 Protein, Total 6.3 - 8.0 g/dL 7.1 7.2 Albumin 3.9 - 4.9 g/dL 4.3 4.0 Calcium 8.5 - 10.2 mg/dL 9.5 9.3 Bilirubin, Total 0.2 - 1.3 mg/dL 0.6 0.5 Alkaline Phosphatase 38 - 113 U/L 98 86 AST 14 - 40 U/L 21 20 ALT 10 - 54 U/L 14 16 Glucose 74 - 99 mg/dL 96 103 (H) BUN 9 - 24 mg/dL 18 21 Creatinine 0.73 - 1.22 mg/dL 1.16 1.29 (H) Sodium 136 - 144 mmol/L 139 140 Potassium 3.7 - 5.1 mmol/L 4.6 4.4 Chloride 97 - 105 mmol/L 103 105 CO2 22 - 30 mmol/L 29 24 Anion Gap 9 - 18 mmol/L 7 (L) 11 eGFR >=60 mL/min/1.73m 63 56 (L) WBC 3.70 - 11.00 k/uL 7.20 7.42 RBC 4.20 - 6.00 m/uL 5.05 4.68 Hemoglobin 13.0 - 17.0 g/dL 14.1 13.3 Hematocrit 39.0 - 51.0 % 45.3 41.9 MCV 80.0 - 100.0 fL 89.7 89.5 MCH 26.0 - 34.0 pg 27.9 28.4 MCHC 30.5 - 36.0 g/dL 31.1 31.7 RDW-CV 11.5 - 15.0 % 14.7 16.2 (H) Platelet Count 150 - 400 k/uL 154 136 (L) MPV 9.0 - 12.7 fL 11.1 11.5 Absolute nRBC <0.01 k/uL <0.01 <0.01 Cholesterol, Total <200 mg/dL 181 Triglyceride <150 mg/dL 156 (H) HDL Cholesterol >39 mg/dL 36 (L) Non HDL Cholesterol <130 mg/dL 145 (H) Fasting Time hrs 12 VLDL Cholesterol <30 mg/dL 31 (H) TC:HDL Ratio <5.10 5.03 LDL Cholesterol <100 mg/dL 114 (H) LDL:HDL Ratio <2.54 3.17 (H) Hemoglobin A1C 4.3 - 5.6 % 5.3 Estimated Average Glucose mg/dL 105 Magnesium 1.7 - 2.3 mg/dL 2.4 (H) TSH 0.270 - 4.200 mIU/L 2.750 Free T4 0.9 - 1.7 ng/dL 1.2 Free T3 2.3 - 4.1 pg/mL 1.8 (L) Assessment and Plan Encounter Diagnosis ICD-10-CM 1. Encounter for immunization Z23 INFLUENZA SEASONAL QUADRIVALENT HIGH DOSE AGE 65+ [employer] COVID-19 BIVALENT BOOSTER VACCINE, AGE 12+ YR 2. Chronic cough R05.3 SPIROMETRY WITH DILATOR IF OBSTRUCTED SPIROMETRY BASELINE ONLY LUNG VOLUMES NITRIC OXIDE, EXHALED 3. Chronic bronchitis, unspecified chronic bronchitis type (HCC) J42 SPIROMETRY WITH DILATOR IF OBSTRUCTED SPIROMETRY BASELINE ONLY LUNG VOLUMES NITRIC OXIDE, EXHALED 4. Decreased exercise tolerance R68.89 SPIROMETRY WITH DILATOR IF OBSTRUCTED SPIROMETRY BASELINE ONLY LUNG VOLUMES NITRIC OXIDE, EXHALED 5. Vitamin D deficiency E55.9 VITAMIN D 25 HYDROXY 6. IFG (impaired fasting glucose) R73.01 COMP METABOLIC PANEL HGB A1C 7. Mixed hyperlipidemia E78.2 LIPID PANEL BASIC 8. Encounter for long-term current use of medication Z79.899 COMP METABOLIC PANEL CBC MAGNESIUM BLD Above issues addressed with patient. Patient involved in shared decision making for management of medical issues. History and medications reviewed. Epic updated as needed Refills and/or prescriptions taken care of and meds adjusted as indicated after reviewed history, exam and labs. Health Maintenance reviewed. Updated record and/or ordered tests as recorded. Encouraged on efforts at healthy diet and regular exercise and adequate sleep. Needs to keep working on diet and exercise with lifestyle changes for effective weight loss as well as control of DM, and control of BP and lipids. Continue present management.Further evaluation and treatment as indicated. Laila Ramos MD documented in this encounterMet[facility]11-17-2022 Miscellaneous Notes* Telephone Encounter - Nicole Lora LPN - 10/15/2022 11:03 AM EST Rec'd fax from [facility] asking if pt to be on both propanolol and metoprolol. Pcp reviewed and sys YES. This has been faxed back to [facility]. documented in this encounterMetro[facility]11-15-2022 Miscellaneous Notes* Telephone Encounter - Korina Barber LPN - 10/13/2022 11:15 AM EST PATIENT NOTIFIED OF SAME. * Telephone Encounter - Laila Ramos MD - 10/12/2022 7:18 PM EST The following approved medication requests have been transmitted electronically. Requested Prescriptions Prescriptions Disp Refills tamsulosin (FLOMAX) 0.4 mg 90 capsule 3 Sig: Take 1 capsule by mouth daily at bedtime. tamsulosin (FLOMAX) 0.4 mg 15 capsule 0 Sig: Take 1 capsule by mouth daily at bedtime. Laila Ramos MD * Telephone Encounter - Torri Matute RN - 10/12/2022 3:36 PM EST Pt reports he is out of medication. Patient has been identified by name and date of : Yes Patient phones for refill(s): Requested Prescriptions Pending Prescriptions Disp Refills tamsulosin (FLOMAX) 0.4 mg 90 capsule 3 Sig: Take 1 capsule by mouth daily at bedtime. Date of last office visit in primary care: 07/03/22 Future visit: 11/02/22 Last 2 Encounter Wt Readings: Date: Wt: 07/03/2022 95.7 kg (211 lb) 06/30/2022 94.8 kg (209 lb) Previous labs/tests for medication: Blood Pressure: BUN (mg/dL) Date Value 06/22/2022 21 05/22/2021 19 Sodium (mmol/L) Date Value 06/22/2022 140 05/22/2021 136 Last 1 Encounter BP Readings: Date: BP: 07/03/2022 108/62 Liver Function: ALT (U/L) Date Value 06/22/2022 16 05/22/2021 10 AST (U/L) Date Value 06/22/2022 20 05/22/2021 22 Please advise. Thank you. Torri Matute RN documented in this encounterMet[facility]11-14-2022 Miscellaneous Notes* Telephone Encounter - Laila Ramos MD - 10/12/2022 12:33 PM EST The following approved medication requests have been transmitted electronically. Requested Prescriptions Prescriptions Disp Refills sucralfate (CARAFATE) 1 gram tablet 180 tablet 3 Sig: Take 1 tablet by mouth twice daily. sucralfate (CARAFATE) 1 gram tablet 15 tablet 0 Sig: Take 1 tablet by mouth twice daily. Laila Ramos MD * Telephone Encounter - Rosa East LPN - 10/12/2022 11:08 AM EST Patient has been identified by name and date of : Yes Patient phones for refill(s): Requested Prescriptions Pending Prescriptions Disp Refills sucralfate (CARAFATE) 1 gram tablet 180 tablet 3 Sig: Take 1 tablet by mouth twice daily. sucralfate (CARAFATE) 1 gram tablet 15 tablet 0 Sig: Take 1 tablet by mouth twice daily. Date of last office visit in primary care: 07/03/2022, has appt 11/02/2022 Last 2 Encounter Wt Readings: Date: Wt: 07/03/2022 95.7 kg (211 lb) 06/30/2022 94.8 kg (209 lb) Previous labs/tests for medication: Not applicable Please advise. Thank you. Rosa East LPN Patient has another medication needs refilled but can not remember the name of it, he will call office back for it later today. documented in this encounterMetro[facility]08-05-2022 Miscellaneous Notes* Telephone Encounter - Lizett Lemus LPN - 07/03/2022 2:01 PM EDT Amber from [facility] was notified that patient was oked for surgery. Note faxed to there office. * Telephone Encounter - Cesilia Alcantara LPN - 07/03/2022 1:15 PM EDT Amber from [facility] calls asking how pts pre op visit went this morning with Em ? I do not see either way in note. Please call [place] at above number to let her know. documented in this encounterMetro[facility]08-05-2022 History of Present illness Narrative* Em Romero, DEIDRE.MEDICAL RECORDS SUPERVISOR - 07/03/2022 9:20 AM EDT SUBJECTIVE: HEPATITIS A(1 of 2 - Risk 2-dose series) Never done MENINGOCOCCAL B: Consider based on risk(1 of 4 - Increased Risk Bexsero 2-dose series) Never done MMR(1 of 2 - Risk 2-dose series) Never done HEPATITIS B(1 of 3 - Risk 3-dose series) Never done ADVANCE DIRECTIVE DISCUSSION Never done COVID-19 VACCINE(3 - Booster for Pfizer series) due on 12/02/2021 HPI Evelia Nails Jr. is a 81 year old male. 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 Benign Prostatic Hyperplasia With Lower Urinary Tract Symptoms Bladder Neck Obstruction Impotence of Organic Origin DIVERTICULOSIS COLON - NO HEMORRHAGE Localized Osteoarthrosis, Lower Leg Pure Hypercholesterolemia Essential Hypertension Other Testicular Hypofunction Essential Tremor Retention of Urine, Unspecified Urethral Stricture Unspecified Dizziness Metabolic Syndrome Ibs (Irritable Bowel Syndrome) Paf (Paroxysmal Atrial Fibrillation) (Hcc) Trochanteric Bursitis Sciatica 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 CXR ordered, showed left basilar atelectasis. He was treated with antibiotics. At his last visit June 30, 2022 he reported feeling improved but not yet back to baseline. Was still completing antibiotic course. Today reports that he is feeling he is back to his baseline. He notes chronic cough attributed to asthma and nasal drainage at baseline. Afebrile. Presents today for preoperative visit in internal medicine. Surgery: Cataract, left Surgeon: Dr Sinclair Date: 07/06/2022 Location: [facility] History of paroxysmal atrial fibrillation, not taking oral anticoagulation. MS: no CVA: no Chest pain: no Shortness of breath: no Flight of stairs: yes Flat surface: not limited Independent ADLs/IADLs: yes Labwork: 06/22/2022 ACS NSQIP Surgical Risk Calculator 1. Age Group: 75 - 84 years 2. Sex: male 3. Functional Status: Independent 4. Emergency Case: No 5. ASA Class: Mild systemic disease 6. Steroid use for chronic condition: No 7. Ascites within 30 days prior to surgery: No 8. Systemic Sepsis within 48 hours prior to surgery: None 9. Ventilator Dependent: No 10. Disseminated Cancer: No 11. Diabetes: None 12. Hypertension requiring medication: No 13. Congestive Heart Failure in 30 days prior to surgery: No 14. Dyspnea: With moderate exertion 15. Current Smoker within 1 Year: No 16. History of COPD: No Does have history of moderate asthma 17. Dialysis: No 18. Acute Renal Failure: No 19. BMI Class Calculation: Overweight Review of Systems Constitutional: Negative. HENT: Positive for rhinorrhea. Respiratory: Positive for cough. Cardiovascular: Negative. Objective BP 108/62 Pulse 60 Resp 16 Wt 95.7 kg (211 lb) SpO2 95% BMI 29.43 kg/m Physical Exam Vitals and nursing note reviewed. Constitutional: Appearance: Normal appearance. HENT: Head: Normocephalic and atraumatic. Eyes: Conjunctiva/sclera: Conjunctivae normal. Cardiovascular: Rate and Rhythm: Normal rate and regular rhythm. Pulses: Carotid pulses are 2+ on the right side and 2+ on the left side. Radial pulses are 2+ on the right side and 2+ on the left side. Heart sounds: Normal heart sounds. Pulmonary: Effort: Pulmonary effort is normal. Breath sounds: Normal breath sounds. Abdominal: General: Bowel sounds are normal. Palpations: Abdomen is soft. Skin: General: Skin is warm and dry. Neurological: General: No focal deficit present. Mental Status: He is alert and oriented to person, place, and time. ALLERGIES Allergen Reactions Atorvastatin Contraindication-Medical Surgical myalgia, weakness proximal muscle Penicillins doesn't work Medications albuterol HFA (PROAIR HFA) 90 mcg/actuation inhaler Inhale 2 Puffs as instructed every 4 hours as needed. folic acid 1 mg tablet Take 1 tablet by mouth twice daily. sertraline (ZOLOFT) 100 mg tablet Take 2 tablets by mouth once daily. donepezil (ARICEPT) 10 mg tablet Take 1 tablet by mouth daily at bedtime. busPIRone (BUSPAR) 10 mg tablet Take 1 tablet by mouth twice daily. montelukast (SINGULAIR) 10 mg tablet Take 1 tablet by mouth daily at bedtime. lansoprazole (PREVACID) 30 mg capsule Take 1 capsule by mouth daily before breakfast. 1/2 hr beforemeal. propranolol (INDERAL) 40 mg tablet Take 1 tablet by mouth three times daily. As directed Mesalamine (LIALDA) 1.2 gram EC tablet Take 1 tablet by mouth twice daily. sucralfate (CARAFATE) 1 gram tablet Take 1 tablet by mouth twice daily. tamsulosin (FLOMAX) 0.4 mg Take 1 capsule by mouth daily at bedtime. magnesium oxide (MAG-OX) 400 mg (241.3 mg magnesium) tablet Take 1 tablet by mouth twice daily. alfuzosin SR (UROXATRAL) 10 mg 24 hr tablet Take 10 mg by mouth once daily. finasteride (PROSCAR) 5 mg tablet Take 5 mg by mouth once daily. glucosamine/msm/chondrt/C/hyal (EEUYPILIXAH-ZXLHXFZWQDP-YUM ORAL) Take by mouth. MV with Mte-Lecowwdn-Bmvbpk (CENTRUM SILVER) 0.4-300-250 mg-mcg-mcg tab Take 1 tablet by mouth oncedaily. BETA CAROTENE ORAL Take by mouth. coenzyme Q10 (COQ-10) 100 mg cap Take 1 capsule by mouth. cyanocobalamin (VITAMIN B-12) 1,000 mcg Tab Take 1 tablet by mouth once daily. VIT C/E/ZN/COPPR/LUTEIN/ZEAXAN (PRESERVISION AREDS 2 ORAL) Take 2 capsules by mouth once daily. 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 Chronic rhinitis Diarrhea 07/16/2005 Essential and other specified forms of tremor not Parkinson's Essential hypertension, benign 07/16/2005 Hemorrhage of gastrointestinal tract, unspecified 07/16/2005 Hemorrhage of gastrointestinal tract, unspecified Inguinal hernia without mention of obstruction or gangrene, unilateral or unspecified, (not specified as recurrent) 07/16/2005 Irritable bowel syndrome 07/16/2005 Paralysis agitans (HCC) 07/16/2005 Regional enteritis of unspecified site 07/16/2005 crohn's PAST SURGICAL HISTORY Procedure Laterality Date COLONOSCOPY FLX DX W/COLLJ SPEC WHEN PFRMD 11/18/07 Diverticulosis CORRECT BUNION,SIMPLE Bunion, right ESOPHAGOGASTRODUODENOSCOPY TRANSORAL DIAGNOSTIC 06/28/2003 EGD LAPAROSCOPY SURG CHOLECYSTECTOMY Cholecystectomy, lap PAST SURGICAL HISTORY OF heart cath PAST SURGICAL HISTORY OF 11/14/2004 colonoscopy x 3 RPR UMBILICAL HERNIA < 5 YRS REDUCIBLE Hernia repair, umbilical SEPTOPLASTY/SUBMUCOUS RESECJ W/WO CARTILAGE GRF 04/01 Septoplasty Social History Tobacco Use Smoking status: Former Smoker Years: 5.00 Types: Cigarettes, Pipe Quit date: 11/29/1962 Years since quittin.6 Smokeless tobacco: Never Used Tobacco comment: Pt smoked on & off x 5 years, never a heavy smoker Substance Use Topics Alcohol use: Yes Alcohol/week: 1.7 standard drinks Comment: rare stawberry daquiri Drug use: No Component Latest Ref Rng & Units 06/22/2022 Protein, Total 6.3 - 8.0 g/dL 7.2 Albumin 3.9 - 4.9 g/dL 4.0 Calcium 8.5 - 10.2 mg/dL 9.3 Bilirubin, Total 0.2 - 1.3 mg/dL 0.5 Alkaline Phosphatase 38 - 113 U/L 86 AST 14 - 40 U/L 20 ALT 10 - 54 U/L 16 Glucose 74 - 99 mg/dL 103 (H) BUN 9 - 24 mg/dL 21 Creatinine 0.73 - 1.22 mg/dL 1.29 (H) Sodium 136 - 144 mmol/L 140 Potassium 3.7 - 5.1 mmol/L 4.4 Chloride 97 - 105 mmol/L 105 CO2 22 - 30 mmol/L 24 Anion Gap 9 - 18 mmol/L 11 eGFR >=60 mL/min/1.73m 56 (L) WBC 3.70 - 11.00 k/uL 7.42 RBC 4.20 - 6.00 m/uL 4.68 Hemoglobin 13.0 - 17.0 g/dL 13.3 Hematocrit 39.0 - 51.0 % 41.9 MCV 80.0 - 100.0 fL 89.5 MCH 26.0 - 34.0 pg 28.4 MCHC 30.5 - 36.0 g/dL 31.7 RDW-CV 11.5 - 15.0 % 16.2 (H) Platelet Count 150 - 400 k/uL 136 (L) MPV 9.0 - 12.7 fL 11.5 Absolute nRBC <0.01 k/uL <0.01 TSH 0.270 - 4.200 mIU/L 2.750 Free T4 0.9 - 1.7 ng/dL 1.2 Free T3 2.3 - 4.1 pg/mL 1.8 (L) ASSESSMENT/PLAN: 1. Preop exam for internal medicine - ICD9: V72.83, ICD10: Z01.818 (primary diagnosis) Scheduled for low risk procedure, cataract surgery left eye with Dr. Sinclair next week. History of asthma, has a respiratory infection that has been treated, feeling improved/back to baseline. Okay to proceed with cataract surgery at discretion of surgeon next week. No additional testing needed at this time Em Romero APRN.MEDICAL RECORDS SUPERVISOR documented in this encounterMetrohealth [facility]08-03-2022 Miscellaneous Notes* Telephone Encounter - Torri Matute RN - 07/01/2022 12:35 PM EDT Amber from [facility] called in and reports they did not receive fax. Re-faxing to [facility] [place] # [phone]. * Telephone Encounter - Ana Gayle RN - 07/01/2022 10:49 AM EDT [facility] requesting patient recent medication list. Faxed as requested to [phone]. Ana Gayle RN documented in this encounterMetrohealth [facility] Center08-02-2022 Miscellaneous Notes* Telephone Encounter - Lizett Lemus LPN - 06/30/2022 9:07 AM EDT Patient here for pre-op exam. Forms were not received, office was called and stated that there wereno forms just need a sentence in office note stating that patient is cleared for surgery since he had bronchitis last week. Provider notified * Telephone Encounter - Aida Griffin RN - 06/29/2022 12:35 PM EDT Patient calls to schedule a pre-op appointment for cataract surgery that is scheduled with Dr. Sinclair for Wednesday07/06/2022. Scheduled for tomorrow morning with Em Romero. Patient reports Dr. Sinclair'soffice was to fax over paperwork this morning. If paperwork not received call the office at [phone]. Aida Griffin RN documented in this encounterMetrohealth [facility]08-02-2022 History of Present illness Narrative* Em Romero APRN.MEDICAL RECORDS SUPERVISOR - 06/30/2022 8:20 AM EDT SUBJECTIVE: HEPATITIS A(1 of 2 - Risk 2-dose series) Never done MENINGOCOCCAL B: Consider based on risk(1 of 4 - Increased Risk Bexsero 2-dose series) Never done MMR(1 of 2 - Risk 2-dose series) Never done HEPATITIS B(1 of 3 - Risk 3-dose series) Never done SHINGRIX VACCINE(1 of 2) Never done DTAP,TDAP,TD(2 - Tdap) due on 08/22/2018 ADVANCE DIRECTIVE DISCUSSION Never done COVID-19 VACCINE(3 - Booster for Pfizer series) due on 12/02/2021 HPI Evelia Nails Jr. is a 81 year old male. 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 Benign Prostatic Hyperplasia With Lower Urinary Tract Symptoms Bladder Neck Obstruction Impotence of Organic Origin DIVERTICULOSIS COLON - NO HEMORRHAGE Localized Osteoarthrosis, Lower Leg Pure Hypercholesterolemia Essential Hypertension Other Testicular Hypofunction Essential Tremor Retention of Urine, Unspecified Urethral Stricture Unspecified Dizziness Metabolic Syndrome Ibs (Irritable Bowel Syndrome) Paf (Paroxysmal Atrial Fibrillation) (Former[facility]) Trochanteric Bursitis Sciatica Arthritis of Knee Chronic Itp (Idiopathic Thrombocytopenia) (Formerly [facility]) Ulnar Neuropathy At Elbow Chronic Nasal Congestion S/P Tkr (Total Knee Replacement) Rebekah Type 4 Hyperlipoproteinemia Macular Degeneration Chronic Urticaria Dysthymia Chronic Nonintractable Headache Anxiety Moderate Persistent Asthma Without Complication Non-Seasonal Allergic Rhinitis Chronic Midline Low Back Pain With Left-Sided Sciatica Ddd (Degenerative Disc Disease), Lumbar Paralysis Agitans (Former[facility]) Mild Depression Seen by Laila Ramos MD 06/22/2022. CXR ordered, showed left basilar atelectasis. Today reports that he is feeling improved however continues with cough chest congestion and nasal drainage. Afebrile. Continues with antibiotic, cough medicine. Taking allergy medicine. Presents today for preoperative visit in internal medicine. Surgery: Cataract, left Surgeon: Dr Sinclair Date: 07/06/2022 Location: [facility] History of paroxysmal atrial fibrillation, not taking oral anticoagulation. MS: no CVA: no Chest pain: no Shortness of breath: no Flight of stairs: yes Flat surface: not limited Independent ADLs/IADLs: yes Labwork: 06/22/2022 ACS NSQIP Surgical Risk Calculator 1. Age Group: 75 - 84 years 2. Sex: male 3. Functional Status: Independent 4. Emergency Case: No 5. ASA Class: Mild systemic disease 6. Steroid use for chronic condition: No 7. Ascites within 30 days prior to surgery: No 8. Systemic Sepsis within 48 hours prior to surgery: None 9. Ventilator Dependent: No 10. Disseminated Cancer: No 11. Diabetes: None 12. Hypertension requiring medication: No 13. Congestive Heart Failure in 30 days prior to surgery: No 14. Dyspnea: With moderate exertion 15. Current Smoker within 1 Year: No 16. History of COPD: No Does have history of moderate asthma 17. Dialysis: No 18. Acute Renal Failure: No 19. BMI Class Calculation: Overweight Review of Systems Constitutional: Negative. HENT: Positive for congestion and rhinorrhea. Respiratory: Positive for cough. Cardiovascular: Negative. Objective BP 112/64 Pulse (!) 59 Temp 36.2 C (97.2 F) Resp 16 Wt 94.8 kg (209 lb) SpO2 95% BMI 29.15 kg/m Physical Exam Vitals and nursing note reviewed. Constitutional: Appearance: Normal appearance. HENT: Head: Normocephalic and atraumatic. Eyes: Conjunctiva/sclera: Conjunctivae normal. Cardiovascular: Rate and Rhythm: Normal rate and regular rhythm. Pulses: Carotid pulses are 2+ on the right side and 2+ on the left side. Radial pulses are 2+ on the right side and 2+ on the left side. Heart sounds: Normal heart sounds. Pulmonary: Effort: Pulmonary effort is normal. Breath sounds: Normal breath sounds. Abdominal: General: Bowel sounds are normal. Palpations: Abdomen is soft. Skin: General: Skin is warm and dry. Neurological: General: No focal deficit present. Mental Status: He is alert and oriented to person, place, and time. ALLERGIES Allergen Reactions Atorvastatin Contraindication-Medical Surgical myalgia, weakness proximal muscle Penicillins doesn't work Medications albuterol HFA (PROAIR HFA) 90 mcg/actuation inhaler, Inhale 2 Puffs as instructed every 4 hours as needed. doxycycline (VIBRA-TABS) 100 mg tablet, Take 1 tablet by mouth twice daily for 10 days. folic acid 1 mg tablet, Take 1 tablet by mouth twice daily. sertraline (ZOLOFT) 100 mg tablet, Take 2 tablets by mouth once daily. donepezil (ARICEPT) 10 mg tablet, Take 1 tablet by mouth daily at bedtime. busPIRone (BUSPAR) 10 mg tablet, Take 1 tablet by mouth twice daily. montelukast (SINGULAIR) 10 mg tablet, Take 1 tablet by mouth daily at bedtime. lansoprazole (PREVACID) 30 mg capsule, Take 1 capsule by mouth daily before breakfast. 1/2 hr before meal. propranolol (INDERAL) 40 mg tablet, Take 1 tablet by mouth three times daily. As directed Mesalamine (LIALDA) 1.2 gram EC tablet, Take 1 tablet by mouth twice daily. sucralfate (CARAFATE) 1 gram tablet, Take 1 tablet by mouth twice daily. tamsulosin (FLOMAX) 0.4 mg, Take 1 capsule by mouth daily at bedtime. magnesium oxide (MAG-OX) 400 mg (241.3 mg magnesium) tablet, Take 1 tablet by mouth twice daily. alfuzosin SR (UROXATRAL) 10 mg 24 hr tablet, Take 10 mg by mouth once daily. finasteride (PROSCAR) 5 mg tablet, Take 5 mg by mouth once daily. glucosamine/msm/chondrt/C/hyal (HRSLYVWADKB-KIKWVFGZLDN-ACL ORAL), Take by mouth. MV with Wuc-Rlalfnco-Zylfej (CENTRUM SILVER) 0.4-300-250 mg-mcg-mcg tab, Take 1 tablet by mouth once daily. BETA CAROTENE ORAL, Take by mouth. coenzyme Q10 (COQ-10) 100 mg cap, Take 1 capsule by mouth. cyanocobalamin (VITAMIN B-12) 1,000 mcg Tab, Take 1 tablet by mouth once daily. VIT C/E/ZN/COPPR/LUTEIN/ZEAXAN (PRESERVISION AREDS 2 ORAL), Take 2 capsules by mouth once daily. 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 Chronic rhinitis Diarrhea 07/16/2005 Essential and other specified forms of tremor not Parkinson's Essential hypertension, benign 07/16/2005 Hemorrhage of gastrointestinal tract, unspecified 07/16/2005 Hemorrhage of gastrointestinal tract, unspecified Inguinal hernia without mention of obstruction or gangrene, unilateral or unspecified, (not specified as recurrent) 07/16/2005 Irritable bowel syndrome 07/16/2005 Paralysis agitans (HCC) 07/16/2005 Regional enteritis of unspecified site 07/16/2005 crohn's PAST SURGICAL HISTORY Procedure Laterality Date COLONOSCOPY FLX DX W/COLLJ SPEC WHEN PFRMD 11/18/07 Diverticulosis CORRECT BUNION,SIMPLE Bunion, right ESOPHAGOGASTRODUODENOSCOPY TRANSORAL DIAGNOSTIC 06/28/2003 EGD LAPAROSCOPY SURG CHOLECYSTECTOMY Cholecystectomy, lap PAST SURGICAL HISTORY OF heart cath PAST SURGICAL HISTORY OF 11/14/2004 colonoscopy x 3 RPR UMBILICAL HERNIA < 5 YRS REDUCIBLE Hernia repair, umbilical SEPTOPLASTY/SUBMUCOUS RESECJ W/WO CARTILAGE GRF 04/01 Septoplasty Social History Tobacco Use Smoking status: Former Smoker Years: 5.00 Types: Cigarettes, Pipe Quit date: 11/29/1962 Years since quittin.6 Smokeless tobacco: Never Used Tobacco comment: Pt smoked on & off x 5 years, never a heavy smoker Substance Use Topics Alcohol use: Yes Alcohol/week: 1.7 standard drinks Comment: rare stawberry daquiri Drug use: No Component Latest Ref Rng & Units 06/22/2022 Protein, Total 6.3 - 8.0 g/dL 7.2 Albumin 3.9 - 4.9 g/dL 4.0 Calcium 8.5 - 10.2 mg/dL 9.3 Bilirubin, Total 0.2 - 1.3 mg/dL 0.5 Alkaline Phosphatase 38 - 113 U/L 86 AST 14 - 40 U/L 20 ALT 10 - 54 U/L 16 Glucose 74 - 99 mg/dL 103 (H) BUN 9 - 24 mg/dL 21 Creatinine 0.73 - 1.22 mg/dL 1.29 (H) Sodium 136 - 144 mmol/L 140 Potassium 3.7 - 5.1 mmol/L 4.4 Chloride 97 - 105 mmol/L 105 CO2 22 - 30 mmol/L 24 Anion Gap 9 - 18 mmol/L 11 eGFR >=60 mL/min/1.73m 56 (L) WBC 3.70 - 11.00 k/uL 7.42 RBC 4.20 - 6.00 m/uL 4.68 Hemoglobin 13.0 - 17.0 g/dL 13.3 Hematocrit 39.0 - 51.0 % 41.9 MCV 80.0 - 100.0 fL 89.5 MCH 26.0 - 34.0 pg 28.4 MCHC 30.5 - 36.0 g/dL 31.7 RDW-CV 11.5 - 15.0 % 16.2 (H) Platelet Count 150 - 400 k/uL 136 (L) MPV 9.0 - 12.7 fL 11.5 Absolute nRBC <0.01 k/uL <0.01 TSH 0.270 - 4.200 mIU/L 2.750 Free T4 0.9 - 1.7 ng/dL 1.2 Free T3 2.3 - 4.1 pg/mL 1.8 (L) ASSESSMENT/PLAN: 1. Preop exam for internal medicine - ICD9: V72.83, ICD10: Z01.818 (primary diagnosis) Scheduled for low risk procedure, cataract surgery left eye with Dr. Sinclair next week. Continues to have cough, chest congestion and nasal drainage. Continues on antibiotic for now. Recommend follow-up visit on Wednesday for recheck. If improved okay to proceed with cataract surgery next week, no additional testing needed. 2. Encounter for immunization - ICD9: V03.89, ICD10: Z23 - HEPATITIS A VACCINE ADULT IM - MENINGOCOCCAL GROUP B VACCINE 2 DOSE - MMR VIRUS IMMUNIZATION, SUBCUT - HEPATITIS B VACCINE, ADULT AGE 20+, IM - TDAP VACCINE AGE 7+ IM - PFIZER-BIONTECH COVID-19 VACCINE, AGE 12+ YR (CH TOP) 3. Need for shingles vaccine - ICD9: V04.89, ICD10: Z23 4. Moderate persistent asthma without complication - ICD9: 493.90, ICD10: J45.40 5. 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 Subjective HISTORY Evelia Nails Jr. is a 81 year old gentleman here for pre-op evaluation as requested by Dr. Tran. Evelia Nails Jr. has surgery scheduled on 07/11/22 if cleared for Cataract surgery at [facility]. Cough the psat 4 weeks. Worst illness ever. Had chills and sweats. Green sputum--a lot; hard to expectorate. Lots of sinus drainage with pain and oressuire in frontal sinuses especially. Tremor were exceptionally worse. SOB still. No fevers or chills now--had bad chills for a while then sweats. When having coughing sleeps, gets heart racing. Was not seen at [facility] or [facility]. No added meds like mucinex Slowly better but still cough with trouble expectorating. Still with sinus drainage so not having monahan now. Lots of gas then sometimes fecal incontinence with thin stool. Bladder issues with losing control sometimes and some urgency, then sometimes not emptying bladder well. 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 Chronic rhinitis Diarrhea 07/16/2005 Essential and other specified forms of tremor not Parkinson's Essential hypertension, benign 07/16/2005 Hemorrhage of gastrointestinal tract, unspecified 07/16/2005 Hemorrhage of gastrointestinal tract, unspecified Inguinal hernia without mention of obstruction or gangrene, unilateral or unspecified, (not specified as recurrent) 07/16/2005 Irritable bowel syndrome 07/16/2005 Paralysis agitans (HCC) 07/16/2005 Regional enteritis of unspecified site 07/16/2005 crohn's PAST SURGICAL HISTORY Procedure Laterality Date COLONOSCOPY FLX DX W/COLLJ SPEC WHEN PFRMD 11/18/07 Diverticulosis CORRECT BUNION,SIMPLE Bunion, right ESOPHAGOGASTRODUODENOSCOPY TRANSORAL DIAGNOSTIC 06/28/2003 EGD LAPAROSCOPY SURG CHOLECYSTECTOMY Cholecystectomy, lap PAST SURGICAL HISTORY OF heart cath PAST SURGICAL HISTORY OF 11/14/2004 colonoscopy x 3 RPR UMBILICAL HERNIA < 5 YRS REDUCIBLE Hernia repair, umbilical SEPTOPLASTY/SUBMUCOUS RESECJ W/WO CARTILAGE GRF 04/01 Septoplasty ALLERGIES Allergen Reactions Atorvastatin Contraindication-Medical Surgical myalgia, weakness proximal muscle Penicillins doesn't work Current Outpatient Medications Medication Sig folic acid 1 mg tablet Take 1 tablet by mouth twice daily. sertraline (ZOLOFT) 100 mg tablet Take 2 tablets by mouth once daily. donepezil (ARICEPT) 10 mg tablet Take 1 tablet by mouth daily at bedtime. busPIRone (BUSPAR) 10 mg tablet Take 1 tablet by mouth twice daily. montelukast (SINGULAIR) 10 mg tablet Take 1 tablet by mouth daily at bedtime. lansoprazole (PREVACID) 30 mg capsule Take 1 capsule by mouth daily before breakfast. 1/2 hr beforemeal. propranolol (INDERAL) 40 mg tablet Take 1 tablet by mouth three times daily. As directed Mesalamine (LIALDA) 1.2 gram EC tablet Take 1 tablet by mouth twice daily. sucralfate (CARAFATE) 1 gram tablet Take 1 tablet by mouth twice daily. tamsulosin (FLOMAX) 0.4 mg Take 1 capsule by mouth daily at bedtime. magnesium oxide (MAG-OX) 400 mg (241.3 mg magnesium) tablet Take 1 tablet by mouth twice daily. (Patient taking differently: Take 400 mg by mouth once daily. ) albuterol HFA (PROAIR HFA) 90 mcg/actuation inhaler Inhale 2 Puffs as instructed every 4 hours as needed. alfuzosin SR (UROXATRAL) 10 mg 24 hr tablet Take 10 mg by mouth once daily. finasteride (PROSCAR) 5 mg tablet Take 5 mg by mouth once daily. glucosamine/msm/chondrt/C/hyal (DMVQUEPSJYW-YSTUUCYSGPW-LZI ORAL) Take by mouth. MV with Bjo-Gyghzpqc-Oazwtn (CENTRUM SILVER) 0.4-300-250 mg-mcg-mcg tab Take 1 tablet by mouth oncedaily. VIT C/E/ZN/COPPR/LUTEIN/ZEAXAN (PRESERVISION AREDS 2 ORAL) Take 2 capsules by mouth once daily. BETA CAROTENE ORAL Take by mouth. coenzyme Q10 (COQ-10) 100 mg cap Take 1 capsule by mouth. cyanocobalamin (VITAMIN B-12) 1,000 mcg Tab Take 1 tablet by mouth once daily. No current facility-administered medications for this visit. FAMILY HISTORY Problem Relation Age of Onset Emphysema Father other (depression [Other]) Mother Heart Mother Hypertension No Family History Coronary Artery Disease No Family History Thyroid No Family History Diabetes No Family History Hyperlipidemia No Family History Blood Disease No Family History Blood Clots No Family History Stroke No Family History DVT No Family History Factor 5 Leiden No Family History Systemic Lupus Erythematosus No Family History Multiple Sclerosis No Family History Bipolar disorder No Family History Schizophrenia No Family History Depression No Family History Dementia No Family History Alzheimer's Disease No Family History Parkinson s Disease No Family History Aneurysm No Family History Social History Tobacco Use Smoking status: Former Smoker Years: 5.00 Types: Cigarettes, Pipe Quit date: 11/29/1962 Years since quittin.6 Smokeless tobacco: Never Used Tobacco comment: Pt smoked on & off x 5 years, never a heavy smoker Substance Use Topics Alcohol use: Yes Alcohol/week: 1.7 standard drinks Comment: rare stawberry daquiri Drug use: No Review of Systems Objective BP 112/66 Pulse 67 Wt 94.3 kg (208 lb) SpO2 95% BMI 29.01 kg/m Last 5 Encounter Wt Readings: Date: Wt: 06/22/2022 94.3 kg (208 lb) 01/27/2022 96.6 kg (213 lb) 09/23/2021 91.6 kg (202 lb) 08/12/2021 92.5 kg (204 lb) 07/17/2021 91 kg (200 lb 9.6 oz) No waist measurement recorded Estimated body mass index is 29.01 kg/m as calculated from the following: Height as of 09/23/21: 180.3 cm (5' 11). Weight as of this encounter: 94.3 kg (208 lb). Last 5 Encounter BP Readings: Date: BP: 06/22/2022 112/66 01/27/2022 110/62 09/23/2021 100/60 08/12/2021 106/74 07/17/2021 110/60 Physical Exam Vitals reviewed. Constitutional: Appearance: Normal appearance. HENT: Head: Normocephalic. Right Ear: Tympanic membrane, ear canal and external ear normal. Left Ear: Tympanic membrane, ear canal and external ear normal. Mouth/Throat: Mouth: Mucous membranes are moist. Pharynx: Oropharynx is clear. Eyes: Extraocular Movements: Extraocular movements intact. Conjunctiva/sclera: Conjunctivae normal. Cardiovascular: Rate and Rhythm: Normal rate and regular rhythm. Pulses: Normal pulses. Heart sounds: Normal heart sounds. Pulmonary: Effort: Pulmonary effort is normal. Breath sounds: Wheezing (with forced expiration, right posterior lower lobe) present. Abdominal: General: Abdomen is flat. There is no distension. Palpations: Abdomen is soft. There is no mass. Musculoskeletal: Cervical back: Normal range of motion. Skin: General: Skin is warm and dry. Neurological: General: No focal deficit present. Mental Status: He is alert and oriented to person, place, and time. Psychiatric: Attention and Perception: Attention normal. Mood and Affect: Mood normal. Speech: Speech normal. Behavior: Behavior normal. Thought Content: Thought content normal. Cognition and Memory: Cognition normal. Judgment: Judgment normal. Component Latest Ref Rng & Units 05/22/2021 02/05/2022 Protein, Total 6.3 - 8.0 g/dL 7.3 7.1 Albumin 3.9 - 4.9 g/dL 4.2 4.3 Calcium 8.5 - 10.2 mg/dL 9.6 9.5 Bilirubin, Total 0.2 - 1.3 mg/dL 0.4 0.6 Alkaline Phosphatase 38 - 113 U/L 112 98 AST 14 - 40 U/L 22 21 Glucose 74 - 99 mg/dL 106 (H) 96 BUN 9 - 24 mg/dL 19 18 Creatinine 0.73 - 1.22 mg/dL 0.99 1.16 Sodium 136 - 144 mmol/L 136 139 Potassium 3.7 - 5.1 mmol/L 5.0 4.6 Chloride 97 - 105 mmol/L 101 103 CO2 22 - 30 mmol/L 23 29 Anion Gap 9 - 18 mmol/L 12 7 (L) ALT 10 - 54 U/L 10 14 eGFR- >60 eGFR-All Other Races . >60 eGFR >=60 mL/min/1.73m 63 WBC 3.70 - 11.00 k/uL 8.70 7.20 RBC 4.20 - 6.00 m/uL 4.75 5.05 Hemoglobin 13.0 - 17.0 g/dL 14.0 14.1 Hematocrit 39.0 - 51.0 % 42.9 45.3 MCV 80.0 - 100.0 fL 90.3 89.7 MCH 26.0 - 34.0 pg 29.5 27.9 MCHC 30.5 - 36.0 g/dL 32.6 31.1 RDW-CV 11.5 - 15.0 % 13.4 14.7 Platelet Count 150 - 400 k/uL 172 154 MPV 9.0 - 12.7 fL 10.5 11.1 Absolute nRBC <0.01 k/uL <0.01 <0.01 Cholesterol, Total <200 mg/dL 181 Triglyceride <150 mg/dL 156 (H) HDL Cholesterol >39 mg/dL 36 (L) Non HDL Cholesterol <130 mg/dL 145 (H) Fasting Time hrs 12 VLDL Cholesterol <30 mg/dL 31 (H) TC:HDL Ratio <5.10 5.03 LDL Cholesterol <100 mg/dL 114 (H) LDL:HDL Ratio <2.54 3.17 (H) Total Cholesterol, Nonfasting <200 mg/dL 161 Triglycerides, Nonfasting <150 mg/dL 171 (H) HDL Cholesterol, Nonfasting >39 mg/dL 36 (L) LDL Cholesterol, Nonfasting <100 mg/dL 91 Non HDL Cholesterol, Nonfasting <130 mg/dL 125 VLDL Cholesterol, Nonfasting <30 mg/dL 34 (H) Total Chol/HDL Ratio, Nonfasting <5.10 mg/dL 4.47 LDL/HDL Ratio, Nonfasting <2.54 mg/dL 2.53 Hemoglobin A1C 4.3 - 5.6 % 5.4 5.3 Estimated Average Glucose mg/dL 108 105 Vitamin D 25 Hydroxy 31.0 - 80.0 ng/mL 29.1 (L) 31.3 Magnesium 1.7 - 2.3 mg/dL 2.3 2.4 (H) Assessment and Plan Encounter Diagnosis ICD-10-CM 1. AB (asthmatic bronchitis), moderate persistent, with acute exacerbation J45.41 2. Viral syndrome B34.9 2019 CORONAVIRUS XR CHEST 2V FRONTAL/LAT 3. Subacute cough R05.2 2019 CORONAVIRUS XR CHEST 2V FRONTAL/LAT 4. HARRIS (dyspnea on exertion) R06.09 XR CHEST 2V FRONTAL/LAT COMP METABOLIC PANEL CBC TSH BLD T4 FREE/FREE THYROX T3 FREE BLD ECG COMPLETE 5. Fatigue, unspecified type R53.83 TSH BLD T4 FREE/FREE THYROX T3 FREE BLD 6. PAF (paroxysmal atrial fibrillation) ([facility]) I48.0 ECG COMPLETE 7. Essential hypertension I10 8. Moderate persistent asthma without complication J45.40 9. Chronic ITP (idiopathic thrombocytopenia) ([facility]) D69.3 10. Crohn's disease of both small and large intestine without complication ([facility]) K50.80 11. Intermittent palpitations R00.2 ECG COMPLETE 12. Respiratory infection J98.8 codeine-guaiFENesin (ROBITUSSIN AC) 10-100 mg/5 mL syrup 13. Cough R05.9 codeine-guaiFENesin (ROBITUSSIN AC) 10-100 mg/5 mL syrup 14. Preop examination Z01.818 XR CHEST 2V FRONTAL/LAT ASSESSMENT/PLAN: 1. Preop examination - ICD9: V72.84, ICD10: Z01.818 (primary diagnosis) Aside from acute infection, other medical issues are stable for proceeding with surgery. Will treat acute issues and re-evaluate for proceeding with planned surgery. Follow up in office as needed. - XR CHEST 2V FRONTAL/LAT 2. AB (asthmatic bronchitis), moderate persistent, with acute exacerbation - ICD9: 493.92, ICD10: J45.41 Treatment as discussed 3. Viral syndrome - ICD9: 079.99, ICD10: B34.9 - Discussed viral etiology and rationale for treatment. - Symptomatic treatment with prn analgesia - Supportive care with fluids and rest - 2019 CORONAVIRUS - XR CHEST 2V FRONTAL/LAT 4. Subacute cough - ICD9: 786.2, ICD10: R05.2 Further evaluation and treatment as indicated. - 2019 CORONAVIRUS - XR CHEST 2V FRONTAL/LAT 5. HARRIS (dyspnea on exertion) - ICD9: 786.09, ICD10: R06.09 Further evaluation and treatment as indicated. - XR CHEST 2V FRONTAL/LAT - COMP METABOLIC PANEL - CBC - TSH BLD - T4 FREE/FREE THYROX - T3 FREE BLD - ECG COMPLETE 6. Fatigue, unspecified type - ICD9: 780.79, ICD10: R53.83 - TSH BLD - T4 FREE/FREE THYROX - T3 FREE BLD 7. PAF (paroxysmal atrial fibrillation) (HCC) - ICD9: 427.31, ICD10: I48.0 Further evaluation and treatment as indicated. - ECG COMPLETE 8. Essential hypertension - ICD9: 401.9, ICD10: I10 - good control - Continue current medication(s) - Recommended regular aerobic exercise. - Recommend home blood pressure monitoring, to bring results in on next visit - Goal of BP <130/80 9. Moderate persistent asthma without complication - ICD9: 493.90, ICD10: J45.40 Continue present management. 10. Chronic ITP (idiopathic thrombocytopenia) (HCC) - ICD9: 287.31, ICD10: D69.3 Stable Continue present management. 11. Crohn's disease of both small and large intestine without complication (HCC) - ICD9: 555.2, ICD10: K50.80 Stable Continue present management. 12. Intermittent palpitations - ICD9: 785.1, ICD10: R00.2 - ECG COMPLETE 13. Respiratory infection - ICD9: 519.8, ICD10: J98.8 Further evaluation and treatment as indicated. - CODEINE 10 MG-GUAIFENESIN 100 MG/5 ML ORAL LIQUID 14. Cough - ICD9: 786.2, ICD10: R05.9 - CODEINE 10 MG-GUAIFENESIN 100 MG/5 ML ORAL LIQUID Laila Ramos MD documented in this encounter[facility] Miscellaneous Notes* Telephone Encounter - Laila Ramos MD - 04/30/2022 12:14 PM EDT Okayed * Telephone Encounter - Eda Herron Bladimir VIDALES - 04/30/2022 10:18 AM EDT Patient has been identified by name and date of : Yes Patient phones for refill(s): Pending Prescriptions Disp Refills FOLIC ACID 1 MG TABLET 180 tablet 3 Sig: Take 1 tablet by mouth twice daily. PAMELA: No SERTRALINE 100 MG TABLET 180 tablet 3 Sig: Take 2 tablets by mouth once daily. PAMELA: No DONEPEZIL 10 MG TABLET 90 tablet 3 Sig: Take 1 tablet by mouth daily at bedtime. PAMELA: No BUSPIRONE 10 MG TABLET 180 tablet 3 Sig: Take 1 tablet by mouth twice daily. PAMELA: No MONTELUKAST 10 MG TABLET 90 tablet 3 Sig: Take 1 tablet by mouth daily at bedtime. PAMELA: No LANSOPRAZOLE 30 MG CAPSULE,DELAYED RELEASE 90 capsule 3 Sig: Take 1 capsule by mouth daily before breakfast. 1/2 hr before meal. PAMELA: No Date of last office visit with pcp: 01-27-22. Next appt: 06-12-22 Last 2 Encounter Wt Readings: Date: Wt: 01/27/2022 96.6 kg (213 lb) 09/23/2021 91.6 kg (202 lb) Previous labs/tests for medication: Blood Pressure: BUN (mg/dL) Date Value 02/05/2022 18 05/22/2021 19 Sodium (mmol/L) Date Value 02/05/2022 139 05/22/2021 136 Last 1 Encounter BP Readings: Date: BP: 01/27/2022 110/62 Blood Counts: WBC (k/uL) Date Value 02/05/2022 7.20 05/22/2021 8.70 RBC (m/uL) Date Value 02/05/2022 5.05 05/22/2021 4.75 Hematocrit (%) Date Value 02/05/2022 45.3 05/22/2021 42.9 Hemoglobin (g/dL) Date Value 02/05/2022 14.1 05/22/2021 14.0 Platelet Count (k/uL) Date Value 02/05/2022 154 05/22/2021 172 Liver Function: ALT (U/L) Date Value 02/05/2022 14 05/22/2021 10 AST (U/L) Date Value 02/05/2022 21 05/22/2021 22 Please advise. Thank you. Eda Garrison RN documented in this encounterMet[facility]03-[facility] History of Present illness Narrative* Laila Ramos MD - 01/27/2022 2:53 PM EST This note was created using [employer]. Subjective Evelia Nails Jr. is a 81 year old male. Patient presents with: Follow Up SUBJECTIVE: Evelia Nails Jr. is a 81 year old year old gentleman here today for 4 month follow up appointment for review of medical conditions. Left eye drains--the side that gets shots for macular degeneration. Tears up. Drip when bends down. Can happen any time of day, whther has just started watching TV or been watching for a while. Eyes gets drippy at night too when wakes up. Tremor at twice daily--a little improvement. Termor is worse in the AM. Did get hoarse after had bronchitis. Does get lots of fluids though maybe not 64 ounces. 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 Chronic rhinitis Diarrhea 07/16/2005 Essential and other specified forms of tremor not Parkinson's Essential hypertension, benign 07/16/2005 Hemorrhage of gastrointestinal tract, unspecified 07/16/2005 Hemorrhage of gastrointestinal tract, unspecified Inguinal hernia without mention of obstruction or gangrene, unilateral or unspecified, (not specified as recurrent) 07/16/2005 Irritable bowel syndrome 07/16/2005 Paralysis agitans (HCC) 07/16/2005 Regional enteritis of unspecified site 07/16/2005 crohn's Current Outpatient Medications Medication Sig Mesalamine (LIALDA) 1.2 gram EC tablet Take 1 tablet by mouth twice daily. sucralfate (CARAFATE) 1 gram tablet Take 1 tablet by mouth twice daily. propranolol (INDERAL) 40 mg tablet Take 1 tablet by mouth twice daily. As directed tamsulosin (FLOMAX) 0.4 mg Take 1 capsule by mouth daily at bedtime. folic acid 1 mg tablet Take 1 tablet by mouth twice daily. sertraline (ZOLOFT) 100 mg tablet Take 2 tablets by mouth once daily. donepezil (ARICEPT) 10 mg tablet Take 1 tablet by mouth daily at bedtime. magnesium oxide (MAG-OX) 400 mg (241.3 mg magnesium) tablet Take 1 tablet by mouth daily. busPIRone (BUSPAR) 10 mg tablet Take 1 tablet by mouth twice daily. montelukast (SINGULAIR) 10 mg tablet Take 1 tablet by mouth daily at bedtime. lansoprazole (PREVACID) 30 mg capsule Take 1 capsule by mouth daily before breakfast. 1/2 hr beforemeal. albuterol HFA (PROAIR HFA) 90 mcg/actuation inhaler Inhale 2 Puffs as instructed every 4 hours as needed. alfuzosin SR (UROXATRAL) 10 mg 24 hr tablet Take 10 mg by mouth once daily. finasteride (PROSCAR) 5 mg tablet Take 5 mg by mouth once daily. glucosamine/msm/chondrt/C/hyal (RZPNRTTNLJM-FNWAESKFUVZ-AUZ ORAL) Take by mouth. MV with Uox-Muaxzazr-Fmpmcz (CENTRUM SILVER) 0.4-300-250 mg-mcg-mcg tab Take 1 tablet by mouth oncedaily. VIT C/E/ZN/COPPR/LUTEIN/ZEAXAN (PRESERVISION AREDS 2 ORAL) Take 2 capsules by mouth once daily. BETA CAROTENE ORAL Take by mouth. coenzyme Q10 (COQ-10) 100 mg cap Take 1 capsule by mouth. cyanocobalamin (VITAMIN B-12) 1,000 mcg Tab Take 1 tablet by mouth once daily. No current facility-administered medications for this visit. Review of Systems Objective BP 110/62 Pulse 84 Wt 96.6 kg (213 lb) BMI 29.71 kg/m Last 5 Encounter BP Readings: Date: BP: 01/27/2022 110/62 09/23/2021 100/60 08/12/2021 106/74 07/17/2021 110/60 05/22/2021 128/76 Last 5 Encounter Wt Readings: Date: Wt: 01/27/2022 96.6 kg (213 lb) 09/23/2021 91.6 kg (202 lb) 08/12/2021 92.5 kg (204 lb) 07/17/2021 91 kg (200 lb 9.6 oz) 05/22/2021 91.6 kg (202 lb) Last 5 Encounter Pulse Readings: Date: Pulse: 01/27/2022 84 09/23/2021 88 08/12/2021 76 07/17/2021 77 05/22/2021 64 Physical Exam Vitals reviewed. Constitutional: Appearance: Normal appearance. Eyes: Conjunctiva/sclera: Conjunctivae normal. Cardiovascular: Rate and Rhythm: Normal rate and regular rhythm. Heart sounds: Normal heart sounds. Pulmonary: Effort: Pulmonary effort is normal. Breath sounds: Normal breath sounds. Skin: General: Skin is warm and dry. Neurological: General: No focal deficit present. Mental Status: He is alert and oriented to person, place, and time. Psychiatric: Mood and Affect: Mood normal. Behavior: Behavior normal. Thought Content: Thought content normal. Judgment: Judgment normal. Prior labs reviewed. Will get labs as ordered. Assessment and Plan Encounter Diagnosis ICD-10-CM 1. Elevated fasting glucose R73.01 HGB A1C 2. Essential tremor G25.0 3. Essential hypertension I10 4. Vitamin D deficiency E55.9 5. Mixed hyperlipidemia E78.2 ASSESSMENT/PLAN: 1. Elevated fasting glucose - ICD9: 790.21, ICD10: R73.01 (primary diagnosis) Needs to keep working on diet and exercise with lifestyle changes for effective weight loss as wellas prevention of DM, and control of BP and lipids. - HGB A1C 2. Essential tremor - ICD9: 333.1, ICD10: G25.0 Propranolol Further evaluation and treatment as indicated. 3. Essential hypertension - ICD9: 401.9, ICD10: I10 - good control - Continue current medication(s) - Recommended regular aerobic exercise. - Recommend home blood pressure monitoring, to bring results in on next visit - Goal of BP <130/80 4. Vitamin D deficiency - ICD9: 268.9, ICD10: E55.9 Adjust replacement as needed 5. Mixed hyperlipidemia - ICD9: 272.2, ICD10: E78.2 - to be determined upon return of lab results - Continue current medication. - Encouraged following a low fat, low cholesterol diet. - Discussed the benefits of regular aerobic exercise and weight loss. - Encouraged following a low carbohydrate, healthy oil intake diet. Discussed COVID 19 Booster. Did get the two shots. Will decide if/when wants to get booster. Laila Ramos [facility] of Past illness Narrative* Problem Noted Date Resolved Date Pneumonia 02/17/2011 08/22/2014 Atrial fibrillation 01/12/2011 05/24/2011 UTI (lower urinary tract infection) 01/13/2010 08/22/2014 Paralysis agitans 07/16/2005 09/23/2011 documented as of this encounter (statuses as of 04/20/2022) [facility] of Past illness Narrative* Problem Noted Date Resolved Date Pneumonia 02/17/2011 08/22/2014 Atrial fibrillation 01/12/2011 05/24/2011 UTI (lower urinary tract infection) 01/13/2010 08/22/2014 Paralysis agitans 07/16/2005 09/23/2011 documented as of this encounter (statuses as of 04/30/2022) [facility] of Past illness Narrative* Problem Noted Date Resolved Date Pneumonia 02/17/2011 08/22/2014 Atrial fibrillation 01/12/2011 05/24/2011 UTI (lower urinary tract infection) 01/13/2010 08/22/2014 Paralysis agitans 07/16/2005 09/23/2011 documented as of this encounter (statuses as of 06/30/2022) [facility] illness Narrative* Problem Noted Date Resolved Date Pneumonia 02/17/2011 08/22/2014 Atrial fibrillation 01/12/2011 05/24/2011 UTI (lower urinary tract infection) 01/13/2010 08/22/2014 Paralysis agitans 07/16/2005 09/23/2011 documented as of this encounter (statuses as of 06/30/2022) [address]22-2011 History of Past illness Narrative* Problem Noted Date Resolved Date Pneumonia 02/17/2011 08/22/2014 Atrial fibrillation 01/12/2011 05/24/2011 UTI (lower urinary tract infection) 01/13/2010 08/22/2014 Paralysis agitans 07/16/2005 09/23/2011 documented as of this encounter (statuses as of 07/01/2022) [facility] Narrative* Problem Noted Date Resolved Date Pneumonia 02/17/2011 08/22/2014 Atrial fibrillation 01/12/2011 05/24/2011 UTI (lower urinary tract infection) 01/13/2010 08/22/2014 Paralysis agitans 07/16/2005 09/23/2011 documented as of this encounter (statuses as of 07/03/2022) [address]22-[address] History of Past illness Narrative* Problem Noted Date Resolved Date Pneumonia 02/17/2011 08/22/2014 Atrial fibrillation 01/12/2011 05/24/2011 UTI (lower urinary tract infection) 01/13/2010 08/22/2014 Paralysis agitans 07/16/2005 09/23/2011 documented as of this encounter (statuses as of 07/03/2022) [facility] Narrative* Problem Noted Date Resolved Date Pneumonia 02/17/2011 08/22/2014 Atrial fibrillation 01/12/2011 05/24/2011 UTI (lower urinary tract infection) 01/13/2010 08/22/2014 Paralysis agitans 07/16/2005 09/23/2011 documented as of this encounter (statuses as of 08/12/2022) [facility] Narrative* Problem Noted Date Resolved Date Pneumonia 02/17/2011 08/22/2014 Atrial fibrillation 01/12/2011 05/24/2011 UTI (lower urinary tract infection) 01/13/2010 08/22/2014 Paralysis agitans 07/16/2005 09/23/2011 documented as of this encounter (statuses as of 10/12/2022) [facility] Narrative* Problem Noted Date Resolved Date Pneumonia 02/17/2011 08/22/2014 Atrial fibrillation 01/12/2011 05/24/2011 UTI (lower urinary tract infection) 01/13/2010 08/22/2014 Paralysis agitans 07/16/2005 09/23/2011 documented as of this encounter (statuses as of 10/13/2022) [address]22-2011 History of Past illness Narrative* Problem Noted Date Resolved Date Pneumonia 02/17/2011 08/22/2014 Atrial fibrillation 01/12/2011 05/24/2011 UTI (lower urinary tract infection) 01/13/2010 08/22/2014 Paralysis agitans 07/16/2005 09/23/2011 documented as of this encounter (statuses as of 10/15/2022) [address]22-2011 History of Past illness Narrative* Problem Noted Date Resolved Date Pneumonia 02/17/2011 08/22/2014 Atrial fibrillation 01/12/2011 05/24/2011 UTI (lower urinary tract infection) 01/13/2010 08/22/2014 Paralysis agitans 07/16/2005 09/23/2011 documented as of this encounter (statuses as of 11/17/2022) [address]22-2011 History of Past illness Narrative* Problem Noted Date Resolved Date Pneumonia 02/17/2011 08/22/2014 Atrial fibrillation 01/12/2011 05/24/2011 UTI (lower urinary tract infection) 01/13/2010 08/22/2014 Paralysis agitans 07/16/2005 09/23/2011 documented as of this encounter (statuses as of 12/08/2022) [address]22-2011 History of Past illness Narrative* Problem Noted Date Resolved Date Pneumonia 02/17/2011 08/22/2014 Atrial fibrillation 01/12/2011 05/24/2011 UTI (lower urinary tract infection) 01/13/2010 08/22/2014 Paralysis agitans 07/16/2005 09/23/2011 documented as of this encounter (statuses as of 12/31/2022) [address]22-2011 History of Past illness Narrative* Problem Noted Date Resolved Date Pneumonia 02/17/2011 08/22/2014 Atrial fibrillation 01/12/2011 05/24/2011 UTI (lower urinary tract infection) 01/13/2010 08/22/2014 Paralysis agitans 07/16/2005 09/23/2011 documented as of this encounter (statuses as of 01/12/2023) [address]22-2011 History of Past illness Narrative* Problem Noted Date Resolved Date Pneumonia 02/17/2011 08/22/2014 Atrial fibrillation 01/12/2011 05/24/2011 UTI (lower urinary tract infection) 01/13/2010 08/22/2014 Paralysis agitans 07/16/2005 09/23/2011 documented as of this encounter (statuses as of 01/20/2023) [address]22-2011 History of Past illness Narrative* Problem Noted Date Resolved Date Pneumonia 02/17/2011 08/22/2014 Atrial fibrillation 01/12/2011 05/24/2011 UTI (lower urinary tract infection) 01/13/2010 08/22/2014 Paralysis agitans 07/16/2005 09/23/2011 documented as of this encounter (statuses as of 02/22/2023) [address]22-2011 History of Past illness Narrative* Problem Noted Date Resolved Date Pneumonia 02/17/2011 08/22/2014 Atrial fibrillation 01/12/2011 05/24/2011 UTI (lower urinary tract infection) 01/13/2010 08/22/2014 Paralysis agitans 07/16/2005 09/23/2011 documented as of this encounter (statuses as of 04/12/2023) [address]22-2011 History of Past illness Narrative* Problem Noted Date Diagnosed Date Resolved Date Pneumonia 02/17/2011 08/22/2014 Atrial fibrillation 01/12/2011 05/24/20 11 UTI (lower urinary tract infection) 01/13/2010 08/22/2014 Paralysis agitans 07/16/2005 09/23/2011 documented as of this encounter (statuses as of 06/18/2023) [address]22-2011 History of Past illness Narrative* Problem Noted Date Diagnosed Date Resolved Date Pneumonia 02/17/2011 08/22/2014 Atrial fibrillation 01/12/2011 05/24/20 11 UTI (lower urinary tract infection) 01/13/2010 08/22/2014 Paralysis agitans 07/16/2005 09/23/2011 documented as of this encounter (statuses as of 07/13/2023) [facility]arrative* Problem Noted Date Diagnosed Date Resolved Date Pneumonia 02/17/2011 08/22/2014 Atrial fibrillation 01/12/2011 05/24/20 11 UTI (lower urinary tract infection) 01/13/2010 08/22/2014 Paralysis agitans 07/16/2005 09/23/2011 documented as of this encounter (statuses as of 07/14/2023) [address]22-2011 History of Past illness Narrative* Problem Noted Date Diagnosed Date Resolved Date Pneumonia 02/17/2011 08/22/2014 Atrial fibrillation 01/12/2011 05/24/20 11 UTI (lower urinary tract infection) 01/13/2010 08/22/2014 Paralysis agitans 07/16/2005 09/23/2011 documented as of this encounter (statuses as of 07/28/2023) [address]22-2011 History of Past illness Narrative* Problem Noted Date Diagnosed Date Resolved Date Pneumonia 02/17/2011 08/22/2014 Atrial fibrillation 01/12/2011 05/24/20 11 UTI (lower urinary tract infection) 01/13/2010 08/22/2014 Paralysis agitans 07/16/2005 09/23/2011 documented as of this encounter (statuses as of 11/02/2023) [place] [address]-22-2011 History of Past illness Narrative* Problem Noted Date Diagnosed Date Resolved Date Pneumonia 02/17/2011 08/22/2014 Atrial fibrillation 01/12/2011 05/24/20 11 UTI (lower urinary tract infection) 01/13/2010 08/22/2014 Paralysis agitans 07/16/2005 09/23/2011 documented as of this encounter (statuses as of 11/05/2023) [address]22-2011 History of Past illness Narrative* Problem Noted Date Diagnosed Date Resolved Date Pneumonia 02/17/2011 08/22/2014 Atrial fibrillation 01/12/2011 05/24/20 11 UTI (lower urinary tract infection) 01/13/2010 08/22/2014 Paralysis agitans 07/16/2005 09/23/2011 documented as of this encounter (statuses as of 11/19/2023) [place] [address]22-2011 History of Past illness Narrative* Problem Noted Date Diagnosed Date Resolved Date Pneumonia 02/17/2011 08/22/2014 Atrial fibrillation 01/12/2011 05/24/20 11 UTI (lower urinary tract infection) 01/13/2010 08/22/2014 Paralysis agitans 07/16/2005 09/23/2011 documented as of this encounter (statuses as of 01/11/2024) [facility]arr[facility]* Problem Noted Date Diagnosed Date Resolved Date Pneumonia 02/17/2011 08/22/2014 Atrial fibrillation 01/12/2011 05/24/20 11 UTI (lower urinary tract infection) 01/13/2010 08/22/2014 Paralysis agitans 07/16/2005 09/23/2011 documented as of this encounter (statuses as of 02/17/2024) [facility] Narrative* Problem Noted Date Diagnosed Date Resolved Date Pneumonia 02/17/2011 08/22/2014 Atrial fibrillation 01/12/2011 05/24/20 11 UTI (lower urinary tract infection) 01/13/2010 08/22/2014 Paralysis agitans 07/16/2005 09/23/2011 documented as of this encounter (statuses as of 03/10/2024) [facility] note* Diagnosis Elevated fasting glucose- Primary Impaired fasting glucose Essential tremor Essential and other specified forms of tremor Essential hypertension Unspecified essential hypertension Vitamin D deficiency Unspecified vitamin D deficiency Mixed hyperlipidemia [facility] Diagnosis Preop exam for internal medicine- Primary Other specified pre-operative examination Encounter for immunization Need for other specified prophylactic vaccination against single bacterial disease Need for shingles vaccine Need for prophylactic vaccination and inoculation against other viral diseases Moderate persistent asthma without complication Unspecified asthma Acute cough documented in this encounter [facility] note* Diagnosis Preop exam for internal medicine- Primary Other specified pre-operative examination documented in this encounter [facility] noteNo assessment information availableWSelect [facility] [place] Work Phone: Evaluation note* Diagnosis AB (asthmatic bronchitis), moderate persistent, with acute exacerbation- Primary Viral syndrome Unspecified viral infection, in conditions classified elsewhere and of unspecified site Subacute cough Cough HARRIS (dyspnea on exertion) Other dyspnea and respiratory abnormality Fatigue, unspecified type PAF (paroxysmal atrial fibrillation) ([facility]) Atrial fibrillation Essential hypertension Unspecified essential hypertension Moderate persistent asthma without complication Unspecified asthma Chronic ITP (idiopathic thrombocytopenia) (HCC) Immune thrombocytopenic purpura Crohn's disease of both small and large intestine without complication (HCC) Regional enteritis of small intestine with large intestine Intermittent palpitations Respiratory infection Other diseases of respiratory system, not elsewhere classified Cough Preop examination Preoperative examination, unspecified [facility]* Diagnosis Benign prostatic hyperplasia with nocturia [facility]* Diagnosis Chronic cough Cough Chronic bronchitis, unspecified chronic bronchitis type (HCC) Decreased exercise tolerance Other general symptoms [facility]* Diagnosis Chronic cough Cough Chronic bronchitis, unspecified chronic bronchitis type (HCC) Decreased exercise tolerance Other general symptoms [facility]* Diagnosis Encounter for immunization- Primary Need for other specified prophylactic vaccination against single bacterial disease Chronic cough Cough Chronic bronchitis, unspecified chronic bronchitis type (HCC) Decreased exercise tolerance Other general symptoms Vitamin D deficiency Unspecified vitamin D deficiency IFG (impaired fasting glucose) Impaired fasting glucose Mixed hyperlipidemia Encounter for long-term current use of medication [facility] Diagnosis Crohn's disease of both small and large intestine without complication (HCC) Regional enteritis of small intestine with large intestine Essential hypertension Unspecified essential hypertension PAF (paroxysmal atrial fibrillation) (HCC) Atrial fibrillation [facility]* Diagnosis Esophageal dysphagia- Primary Dysphagia, pharyngoesophageal phase Chronic cough Cough Chronic bronchitis, unspecified chronic bronchitis type (HCC) Essential hypertension Unspecified essential hypertension [facility]* Diagnosis Essential hypertension Unspecified essential hypertension PAF (paroxysmal atrial fibrillation) (HCC) Atrial fibrillation [facility]* Diagnosis Essential hypertension- Primary Unspecified essential hypertension Benign prostatic hyperplasia with nocturia Vitamin D deficiency Unspecified vitamin D deficiency Mixed hyperlipidemia IFG (impaired fasting glucose) Impaired fasting glucose Bilateral impacted cerumen Impacted cerumen Parkinson disease (HCC) Paralysis agitans Essential tremor Essential and other specified forms of tremor Chronic ITP (idiopathic thrombocytopenia) (HCC) Immune thrombocytopenic purpura Crohn's disease of both small and large intestine without complication (HCC) Regional enteritis of small intestine with large intestine Major depressive disorder, single episode, mild (HCC) Major depressive disorder, single episode, mild Encounter for long-term current use of medication [facility]* Diagnosis Hearing loss of right ear, unspecified hearing loss type- Primary [facility]* Diagnosis Benign prostatic hyperplasia with nocturia [facility]* Diagnosis Crohn's disease of both small and large intestine without complication (HCC) Regional enteritis of small intestine with large intestine [facility]* Diagnosis Crohn's disease of both small and large intestine without complication (HCC)- Primary Regional enteritis of small intestine with large intestine Encounter for immunization Need for other specified prophylactic vaccination against single bacterial disease Parkinson's disease, unspecified whether dyskinesia present, unspecified whether manifestations fluctuate (HCC) Chronic ITP (idiopathic thrombocytopenia) (HCC) Immune thrombocytopenic purpura Chronic bronchitis, unspecified chronic bronchitis type (HCC) Major depressive disorder, single episode, mild (HCC) Major depressive disorder, single episode, mild Tremor of both hands Bilateral hand pain Pain in limb [facility] this [facility]* Diagnosis Major depressive disorder, single episode, mild (HCC) Major depressive disorder, single episode, mild [facility]* Diagnosis Anterior dislocation of left shoulder, subsequent encounter- Primary Essential hypertension Unspecified essential hypertension PAF (paroxysmal atrial fibrillation) ([facility]) Atrial fibrillation [facility]* Diagnosis Essential hypertension- Primary Unspecified essential hypertension Vitamin D deficiency Unspecified vitamin D deficiency IFG (impaired fasting glucose) Impaired fasting glucose Hypomagnesemia Disorders of magnesium metabolism Mixed hyperlipidemia Benign prostatic hyperplasia with nocturia Encounter for long-term current use of medication [facility]* Diagnosis Preop examination Preoperative examination, unspecified Viral syndrome Unspecified viral infection, in conditions classified elsewhere and of unspecified site Subacute cough Cough HARRIS (dyspnea on exertion) Other dyspnea and respiratory abnormality [facility] this encounter [facility]* Diagnosis Cough [facility]* Diagnosis Arthritis of left shoulder region- Primary Unspecified arthropathy, shoulder region Chronic left shoulder pain Pain in joint, shoulder region Pre-op evaluation Preoperative examination, unspecified Essential hypertension Unspecified essential hypertension Encounter for immunization Need for other specified prophylactic vaccination against single bacterial disease Parkinson's disease, unspecified whether dyskinesia present, unspecified whether manifestations fluctuate (HCC) Pure hypercholesterolemia PAF (paroxysmal atrial fibrillation) (HCC) Atrial fibrillation Chronic bronchitis, unspecified chronic bronchitis type (HCC) IFG (impaired fasting glucose) Impaired fasting glucose Chronic ITP (idiopathic thrombocytopenia) (HCC) Immune thrombocytopenic purpura Mild depression Depressive disorder, not elsewhere classified Encounter for therapeutic drug monitoring Vitamin D deficiency Unspecified vitamin D deficiency [facility] Diagnosis Essential tremor- Primary Essential and other specified forms of tremor [facility] Diagnosis Essential hypertension- Primary Unspecified essential hypertension Arthritis of left shoulder region Unspecified arthropathy, shoulder region S/P shoulder replacement, left Crohn's disease of both small and large intestine without complication (HCC) Regional enteritis of small intestine with large intestine Pure hypercholesterolemia Chronic ITP (idiopathic thrombocytopenia) (HCC) Immune thrombocytopenic purpura Vitamin D deficiency Unspecified vitamin D deficiency H/O urinary retention Personal history of other disorder of urinary system [facility] [facility] Diagnosis History of left shoulder replacement- Primary [facility] Diagnosis Medicare annual wellness visit, subsequent- Primary Routine general medical examination at a health care facility Essential hypertension Unspecified essential hypertension PAF (paroxysmal atrial fibrillation) (HCC) Atrial fibrillation Major depressive disorder with single episode, in full remission (HCC) Crohn's disease of both small and large intestine without complication (HCC) Regional enteritis of small intestine with large intestine Encounter for immunization Need for other specified prophylactic vaccination against single bacterial disease Vitamin D deficiency Unspecified vitamin D deficiency IFG (impaired fasting glucose) Impaired fasting glucose Mixed hyperlipidemia documented in this encounter [facility] Diagnosis Essential hypertension- Primary Unspecified essential hypertension Benign prostatic hyperplasia with nocturia Major depressive disorder, single episode, mild IFG (impaired fasting glucose) Impaired fasting glucose Hypomagnesemia Disorders of magnesium metabolism Vitamin D deficiency Unspecified vitamin D deficiency Mixed hyperlipidemia Dementia, unspecified dementia severity, unspecified dementia type, unspecified whether behavioral, psychotic, or mood disturbance or anxiety (HCC) Crohn's disease with complication, unspecified gastrointestinal tract location (HCC) Chronic ITP (idiopathic thrombocytopenia) (HCC) Immune thrombocytopenic purpura Chronic bronchitis, unspecified chronic bronchitis type (HCC) PAF (paroxysmal atrial fibrillation) (HCC) Atrial fibrillation Encounter for long-term current use of medication documented in this encounter [facility] course Narrative No data available for this section [place] Reason for referral (narrative)* Outpatient Procedure (Routine) - Pending Review Specialty Diagnoses / Procedures Referred By Chelsea castle Referred To Contact [facility] Diagnoses HARRIS (dyspnea on exertion) PAF (paroxysmal atrial fibrillation) (HCC) Intermittent palpitations Procedures ECG COMPLETE ECG ROUTINE ECG W/LEAST 12 LDS W/I&[place] [address] [place] [address] [facility] [address] [address] Referral ID Status Reason Start Date Expiration Date Visits Requested Visits Authorized [id number] Pending Review Auto-Generat ed Referral 06/22/2022 06/22/2023 1 1 [facility] for referral (narrative)* Outpatient Procedure (Routine) - Closed Specialty Diagnoses / Procedures Referred By Chelsea castle Referred To Contact [facility] Diagnoses Chronic cough Chronic bronchitis, unspecified chronic bronchitis type (HCC) Decreased exercise tolerance Procedures NITRIC OXIDE, EXHALED NITRIC [place] [address] [place] [address] [facility] [place] [address] [place] [address] Referral ID Status Reason Start Date Expiration Date V isits Requested Visits Authorized [id number] Closed Auto-Generate d Referral 11/02/2022 12/02/2023 1 1 * Outpatient Procedure (Routine) - Closed Specialty Diagnoses / Procedures Referred By Chelsea castle Referred To Contact [facility] Diagnoses Chronic cough Chronic bronchitis, unspecified chronic bronchitis type (HCC) Decreased exercise tolerance Procedures LUNG VOLUMES Laila Ramos MD [address] [place] [address] [address] Referral ID Status Reason Start Date Expiration Date V isits Requested Visits Authorized [id number] Closed Auto-Generate d Referral 11/02/2022 12/02/2023 1 1 * Outpatient Procedure (Routine) - Authorized Specialty Diagnoses / Procedures Referred By Chelsea castle Referred To [facility] Diagnoses Chronic cough Chronic bronchitis, unspecified chronic bronchitis type (HCC) Decreased exercise tolerance Procedures SPIROMETRY BASELINE ONLY SPMTRY W/VC EXPIRATORY MIKA W/WO MXML VOL VNTJ Laila Ramos MD [address] [place] [address] [facility] [place] [address] [place] [address] Referral ID Status Reason Start Date Expiration Date Visits Requested Visits Authorized [id number] Authorized Auto-Generat ed Referral 11/02/2022 12/02/2023 1 1 * Outpatient Procedure (Routine) - Closed Specialty Diagnoses / Procedures Referred By Chelsea castle Referred To [facility] Diagnoses Chronic cough Chronic bronchitis, unspecified chronic bronchitis type (HCC) Decreased exercise tolerance Procedures SPIROMETRY WITH DILATOR IF OBSTRUCTED BRNCDILAT RSPSE SPMTRY PRE&POST-BRNCDILAT ADMN Laila Ramos MD [address] [place] [address] [facility] [place] [address] [place] [address] Referral ID Status Reason Start Date Expiration Date V isits Requested Visits Authorized [id number] Closed Auto-Generate d Referral 11/02/2022 12/02/2023 1 1 [facility] for referral (narrative)No reason for referral information availableWSelect [facility] Work Phone: Chief Complaint and Reason for Visit Chief Complaint DYSPHAGIA 12 MM TABL ET Chief Complaint GROSS HEMATURIA Chief Complaint Admit Date Dysphagia, unspecified August 03 8:17am Family History No Family History Records Found Relationship Condition Age at Onset Recorded Date/T edilia Unknown Family History?- Unknown June 01 019 6:46pm Family History?No pe rtinent history Unknown November 17, 2017 2:05pm Advance Directives No Advanced Directives Records Found Advance Directive Response Recorded Date/ Time Advance Directives Yes September 9:14pm Living Will Yes June 01, 2019 7 :49pm Power of Manager Social Media Yes June 01, 2019 7:49pm Documents on File Type Date Recorded Patient Family Sociologist Expl anation Advance Directive(s) 03/10/2023 10:34 AM Documents on File Type Date Recorded Patient Family Sociologist Expl anation Advance Directive(s) 03/10/2023 10:34 AM Advance Directive Response Recorded Date/ Time Advance Directives Yes September 9:14pm Reason for Referral Specialty Diagnoses / Procedures Referred By Contac t Referred To Contact Ent - Otolaryngology Diagnoses Hearing loss of right ear, unspecified hearing loss type Procedures CONSULT TO ENT OFFICE/OUTPATIENT [facility] 60-74 MINUTES Em Romero, FRUIT HARVESTER.MEDICAL RECORDS SUPERVISOR [address] [place] [address] Referral ID Status Reason Start Date Expiration Date Visits Requested Visits Authorized [id number] Authorized PCP Requested Referral 07/13/2023 07/12/2024 1 1 Specialty Diagnoses / Procedures Referred By Contac t Referred To Contact Neurology Diagnoses Tremor of both hands Procedures CONSULT TO NEUROLOGY OFFICE/OUTPATIENT [facility] 60 MINUTES RomeroEm choi, FRUIT HARVESTER.MEDICAL RECORDS SUPERVISOR [address] [place] [address] Referral ID Status Reason Start Date Expiration Date Visits Requested Visits Authorized [id number] Authorized PCP Requested Referral 02/17/2024 02/16/2025 1 1 Specialty Diagnoses / Procedures Referred By Contac t Referred To Contact [facility] Diagnoses History of left shoulder replacement Procedures CONSULT TO AIRPORT RAMP ATTENDANT OCCUPATIONAL THERAPY [facility] 60 MINS Em Romero, FRUIT HARVESTER.MEDICAL RECORDS SUPERVISOR [address] [place] [address] [facility] [place] [address] [place] [address] Referral ID Status Reason Start Date Expiration Date Visits Requested Visits Authorized [id number] Authorized PCP Requested Referral Auto-Generate d Referral 4 11/10/2025 99 99 Summary Purpose Additional Source Comments Source Comments (unrecognize d section and content) In the event this informatio n is protected by the Federal Confidentiality of Alcohol and Drug Abuse Patient Records regulations: The Federal rules restrict any use of the information to criminally investigate or prosecute any alcohol or drug abuse patient.[facility] CenterIn the event this information is protected by the Federal Confidentiality of Alcohol and Drug Abuse Patient Records regulations: The Federal rules restrict any use of the information to criminally investigate or prosecute any alcohol or drug abuse patient.[facility] CenterIn the event this information is protected by the Federal Confidentiality of Alcohol and Drug Abuse Patient Records regulations: The Federal rules restrict any use of the information to criminally investigate or prosecute any alcohol or drug abuse patient.[facility] CenterIn the event this information is protected by the Federal Confidentiality of Alcohol and Drug Abuse Patient Records regulations: The Federal rules restrict any use of the information to criminally investigate or prosecute any alcohol or drug abuse patient.[facility] CenterIn the event this information is protected by the Federal Confidentiality of Alcohol and Drug Abuse Patient Records regulations: The Federal rules restrict any use of the information to criminally investigate or prosecute any alcohol or drug abuse patient.[facility] CenterIn the event this information is protected by the Federal Confidentiality of Alcohol and Drug Abuse Patient Records regulations: The Federal rules restrict any use of the information to criminally investigate or prosecute any alcohol or drug abuse patient.[facility] CenterIn the event this information is protected by the Federal Confidentiality of Alcohol and Drug Abuse Patient Records regulations: The Federal rules restrict any use of the information to criminally investigate or prosecute any alcohol or drug abuse patient.[facility] CenterIn the event this information is protected by the Federal Confidentiality of Alcohol and Drug Abuse Patient Records regulations: The Federal rules restrict any use of the information to criminally investigate or prosecute any alcohol or drug abuse patient.[facility] CenterIn the event this information is protected by the Federal Confidentiality of Alcohol and Drug Abuse Patient Records regulations: The Federal rules restrict any use of the information to criminally investigate or prosecute any alcohol or drug abuse patient.[facility] CenterIn the event this information is protected by the Federal Confidentiality of Alcohol and Drug Abuse Patient Records regulations: The Federal rules restrict any use of the information to criminally investigate or prosecute any alcohol or drug abuse patient.[facility] CenterIn the event this information is protected by the Federal Confidentiality of Alcohol and Drug Abuse Patient Records regulations: The Federal rules restrict any use of the information to criminally investigate or prosecute any alcohol or drug abuse patient.[facility] CenterIn the event this information is protected by the Federal Confidentiality of Alcohol and Drug Abuse Patient Records regulations: The Federal rules restrict any use of the information to criminally investigate or prosecute any alcohol or drug abuse patient.[facility] CenterIn the event this information is protected by the Federal Confidentiality of Alcohol and Drug Abuse Patient Records regulations: The Federal rules restrict any use of the information to criminally investigate or prosecute any alcohol or drug abuse patient.[facility] CenterIn the event this information is protected by the Federal Confidentiality of Alcohol and Drug Abuse Patient Records regulations: The Federal rules restrict any use of the information to criminally investigate or prosecute any alcohol or drug abuse patient.[facility] CenterIn the event this information is protected by the Federal Confidentiality of Alcohol and Drug Abuse Patient Records regulations: The Federal rules restrict any use of the information to criminally investigate or prosecute any alcohol or drug abuse patient.[facility] CenterIn the event this information is protected by the Federal Confidentiality of Alcohol and Drug Abuse Patient Records regulations: The Federal rules restrict any use of the information to criminally investigate or prosecute any alcohol or drug abuse patient.[facility] CenterIn the event this information is protected by the Federal Confidentiality of Alcohol and Drug Abuse Patient Records regulations: The Federal rules restrict any use of the information to criminally investigate or prosecute any alcohol or drug abuse patient.[facility] CenterIn the event this information is protected by the Federal Confidentiality of Alcohol and Drug Abuse Patient Records regulations: The Federal rules restrict any use of the information to criminally investigate or prosecute any alcohol or drug abuse patient.[facility] CenterIn the event this information is protected by the Federal Confidentiality of Alcohol and Drug Abuse Patient Records regulations: The Federal rules restrict any use of the information to criminally investigate or prosecute any alcohol or drug abuse patient.[facility] CenterIn the event this information is protected by the Federal Confidentiality of Alcohol and Drug Abuse Patient Records regulations: The Federal rules restrict any use of the information to criminally investigate or prosecute any alcohol or drug abuse patient.[facility] CenterIn the event this information is protected by the Federal Confidentiality of Alcohol and Drug Abuse Patient Records regulations: The Federal rules restrict any use of the information to criminally investigate or prosecute any alcohol or drug abuse patient.[facility] CenterIn the event this information is protected by the Federal Confidentiality of Alcohol and Drug Abuse Patient Records regulations: The Federal rules restrict any use of the information to criminally investigate or prosecute any alcohol or drug abuse patient.[facility] CenterIn the event this information is protected by the Federal Confidentiality of Alcohol and Drug Abuse Patient Records regulations: The Federal rules restrict any use of the information to criminally investigate or prosecute any alcohol or drug abuse patient.[facility] CenterIn the event this information is protected by the Federal Confidentiality of Alcohol and Drug Abuse Patient Records regulations: The Federal rules restrict any use of the information to criminally investigate or prosecute any alcohol or drug abuse patient.[facility] CenterIn the event this information is protected by the Federal Confidentiality of Alcohol and Drug Abuse Patient Records regulations: The Federal rules restrict any use of the information to criminally investigate or prosecute any alcohol or drug abuse patient.[facility] CenterIn the event this information is protected by the Federal Confidentiality of Alcohol and Drug Abuse Patient Records regulations: The Federal rules restrict any use of the information to criminally investigate or prosecute any alcohol or drug abuse patient.[facility] CenterIn the event this information is protected by the Federal Confidentiality of Alcohol and Drug Abuse Patient Records regulations: The Federal rules restrict any use of the information to criminally investigate or prosecute any alcohol or drug abuse patient.[facility] CenterIn the event this information is protected by the Federal Confidentiality of Alcohol and Drug Abuse Patient Records regulations: The Federal rules restrict any use of the information to criminally investigate or prosecute any alcohol or drug abuse patient.[facility] CenterIn the event this information is protected by the Federal Confidentiality of Alcohol and Drug Abuse Patient Records regulations: The Federal rules restrict any use of the information to criminally investigate or prosecute any alcohol or drug abuse patient.[facility] CenterIn the event this information is protected by the Federal Confidentiality of Alcohol and Drug Abuse Patient Records regulations: The Federal rules restrict any use of the information to criminally investigate or prosecute any alcohol or drug abuse patient.[facility] CenterIn the event this information is protected by the Federal Confidentiality of Alcohol and Drug Abuse Patient Records regulations: The Federal rules restrict any use of the information to criminally investigate or prosecute any alcohol or drug abuse patient.[facility]In the event this information is protected by the Federal Confidentiality of Alcohol and Drug Abuse Patient Records regulations: The Federal rules restrict any use of the information to criminally investigate or prosecute any alcohol or drug abuse patient.[facility] CenterIn the event this information is protected by the Federal Confidentiality of Alcohol and Drug Abuse Patient Records regulations: The Federal rules restrict any use of the information to criminally investigate or prosecute any alcohol or drug abuse patient.[facility] CenterIn the event this information is protected by the Federal Confidentiality of Alcohol and Drug Abuse Patient Records regulations: The Federal rules restrict any use of the information to criminally investigate or prosecute any alcohol or drug abuse patient.[facility] CenterIn the event this information is protected by the Federal Confidentiality of Alcohol and Drug Abuse Patient Records regulations: The Federal rules restrict any use of the information to criminally investigate or prosecute any alcohol or drug abuse patient.[facility] CenterIn the event this information is protected by the Federal Confidentiality of Alcohol and Drug Abuse Patient Records regulations: The Federal rules restrict any use of the information to criminally investigate or prosecute any alcohol or drug abuse patient.[facility] CenterIn the event this information is protected by the Federal Confidentiality of Alcohol and Drug Abuse Patient Records regulations: The Federal rules restrict any use of the information to criminally investigate or prosecute any alcohol or drug abuse patient.[facility] CenterIn the event this information is protected by the Federal Confidentiality of Alcohol and Drug Abuse Patient Records regulations: The Federal rules restrict any use of the information to criminally investigate or prosecute any alcohol or drug abuse patient.[facility] CenterIn the event this information is protected by the Federal Confidentiality of Alcohol and Drug Abuse Patient Records regulations: The Federal rules restrict any use of the information to criminally investigate or prosecute any alcohol or drug abuse patient.[facility] CenterIn the event this information is protected by the Federal Confidentiality of Alcohol and Drug Abuse Patient Records regulations: The Federal rules restrict any use of the information to criminally investigate or prosecute any alcohol or drug abuse patient.[facility] CenterIn the event this information is protected by the Federal Confidentiality of Alcohol and Drug Abuse Patient Records regulations: The Federal rules restrict any use of the information to criminally investigate or prosecute any alcohol or drug abuse patient.[facility] CenterIn the event this information is protected by the Federal Confidentiality of Alcohol and Drug Abuse Patient Records regulations: The Federal rules restrict any use of the information to criminally investigate or prosecute any alcohol or drug abuse patient.[facility] CenterIn the event this information is protected by the Federal Confidentiality of Alcohol and Drug Abuse Patient Records regulations: The Federal rules restrict any use of the information to criminally investigate or prosecute any alcohol or drug abuse patient.[facility] CenterIn the event this information is protected by the Federal Confidentiality of Alcohol and Drug Abuse Patient Records regulations: The Federal rules restrict any use of the information to criminally investigate or prosecute any alcohol or drug abuse patient.[facility] CenterIn the event this information is protected by the Federal Confidentiality of Alcohol and Drug Abuse Patient Records regulations: The Federal rules restrict any use of the information to criminally investigate or prosecute any alcohol or drug abuse patient.[facility] CenterIn the event this information is protected by the Federal Confidentiality of Alcohol and Drug Abuse Patient Records regulations: The Federal rules restrict any use of the information to criminally investigate or prosecute any alcohol or drug abuse patient.[facility] CenterIn the event this information is protected by the Federal Confidentiality of Alcohol and Drug Abuse Patient Records regulations: The Federal rules restrict any use of the information to criminally investigate or prosecute any alcohol or drug abuse patient.[facility] CenterIn the event this information is protected by the Federal Confidentiality of Alcohol and Drug Abuse Patient Records regulations: The Federal rules restrict any use of the information to criminally investigate or prosecute any alcohol or drug abuse patient.[facility] CenterIn the event this information is protected by the Federal Confidentiality of Alcohol and Drug Abuse Patient Records regulations: The Federal rules restrict any use of the information to criminally investigate or prosecute any alcohol or drug abuse patient.[facility] CenterIn the event this information is protected by the Federal Confidentiality of Alcohol and Drug Abuse Patient Records regulations: The Federal rules restrict any use of the information to criminally investigate or prosecute any alcohol or drug abuse patient.[facility] CenterIn the event this information is protected by the Federal Confidentiality of Alcohol and Drug Abuse Patient Records regulations: The Federal rules restrict any use of the information to criminally investigate or prosecute any alcohol or drug abuse patient.[facility] Reason for Visit (unrecogniz ed section and content) Reason Comments Follow Up Reason Onset Date Comments Refill Request 04/30/2022 Reason Comments Pre-Op Exam Reason Comments Appointment Pre-Op paperwork Reason Comments fax request Reason Comments preop ok Reason Comments Follow Up Reason Onset Date Comments Refill Request 10/12/2022 Reason Comments Forms Reason Comments Spirometry Specialty Diagnoses / Procedures Referred By Contac t Referred To Contact [facility] Diagnoses Chronic cough Chronic bronchitis, unspecified chronic bronchitis type (HCC) Decreased exercise tolerance Procedures SPIROMETRY WITH DILATOR IF OBSTRUCTED BRNCDILAT RSPSE SPMTRY PRE&POST-BRNCDILAT ADMN Laila Ramos MD [address] [place] [address] [place] [id number] Referral ID Status Reason Start Date Expiration Date V isits Requested Visits Authorized [id number] Closed Auto-Generate d Referral 11/02/2022 12/02/2023 1 1 Specialty Diagnoses / Procedures Referred By Contac t Referred To [facility] Diagnoses Chronic cough Chronic bronchitis, unspecified chronic bronchitis type (HCC) Decreased exercise tolerance Procedures NITRIC OXIDE, EXHALED NITRIC OXIDE GAS DETERMINATION Laila Ramos MD [address] [place] [address] [address] Referral ID Status Reason Start Date Expiration Date V isits Requested Visits Authorized [id number] Closed Auto-Generate d Referral 11/02/2022 12/02/2023 1 1 Specialty Diagnoses / Procedures Referred By Contac t Referred To Contact [facility] Diagnoses Chronic cough Chronic bronchitis, unspecified chronic bronchitis type (HCC) Decreased exercise tolerance Procedures LUNG VOLUMES Laila Ramos MD [address] [place] [address] Respiratory [place] [address] Referral ID Status Reason Start Date Expiration Date V isits Requested Visits Authorized [id number] Closed Auto-Generate d Referral 11/02/2022 12/02/2023 1 1 Reason Comments Follow Up Reason Onset Date Comments Refill Request 12/31/2022 Reason Onset Date Comments Refill Request 01/11/2023 Reason Comments Results Reason Comments Established Patient Chronic moist produc tive cough Reason Onset Date Comments Refill Request 04/06/2023 Reason Onset Date Comments Refill Request 06/17/2023 Reason Comments Yearly Exam Reason Comments Patient Update Reason Onset Date Comments Refill Request 07/27/2023 Reason Onset Date Comments Refill Request 11/01/2023 Reason Comments Patient Question Reason Comments Med Change Request Reason Onset Date Comments Refill Request 01/10/2024 Reason Comments Refill Request Reason Onset Date Comments Refill Request 03/29/2024 Reason Onset Date Comments Refill Request 05/09/2024 Reason Comments ER F/U Reason Comments F/U 4 month Reason Comments Pre-Op Question Reason Comments New Patient Reason Comments Home Health Orders Reason Comments Hospital F/U Reason Comments faxing list of medications patient was t aking at Rehab Reason Comments [facility] calling for verbal order PT Reason Comments Occupational Therapy Evaluation Reason Comments Orders Reason Comments [facility] Reason Comments Medicare Wellness Exam Reason Onset Date Comments Refill Request 12/15/2024 Reason Onset Date Comments Refill Request 02/13/2025 Reason Comments 4 month follow-up Care Teams (unrecognized sec tion and content) Special Services Coordinator Relationship Specialty Start Date End Date Laila Ramos MD [address] [place], [place] [id number] PCP - General Internal Medicine 01/07/17 [facility] 06/22/19 Special Services Coordinator Relationship Specialty Start Date End Date Laila Ramos MD [address] [place], [place] [address] PCP - General Internal Medicine 01/07/17 [facility] 06/22/19 Special Services Coordinator Relationship Specialty Start Date End Date Laila Ramos MD [address] [facility] [place] [address] PCP - General Internal Medicine 01/07/17 [facility] 06/22/19 Special Services Coordinator Relationship Specialty Start Date End Date Laila Ramos MD [address] [facility] [place] [address] PCP - General Internal Medicine 01/07/17 [facility] 06/22/19 Special Services Coordinator Relationship Specialty Start Date End Date Laila Ramos MD [address] [facility] [place] [address] PCP - General Internal Medicine 01/07/17 [facility] 06/22/19 Special Services Coordinator Relationship Specialty Start Date End Date Laila Ramos MD [address] [facility] [place] [address] PCP - General Internal Medicine 01/07/17 [facility] 06/22/19 Special Services Coordinator Relationship Specialty Start Date End Date Laila Ramos MD [address] [facility] [place] [address] PCP - General Internal Medicine 01/07/17 [facility] 06/22/19 Special Services Coordinator Relationship Specialty Start Date End Date Laila Ramos MD [address] [facility] [place] [address] PCP - General Internal Medicine 01/07/17 [facility] 06/22/19 Special Services Coordinator Relationship Specialty Start Date End Date Laila Ramos MD [address] [facility] [place] [address] PCP - General Internal Medicine 01/07/17 [facility] 06/22/19 Special Services Coordinator Relationship Specialty Start Date End Date Laila Ramos MD [address] [facility] [place] [address] PCP - General Internal Medicine 01/07/17 [facility] 06/22/19 Special Services Coordinator Relationship Specialty Start Date End Date Laila Ramos MD [address] [facility] [place] [address] PCP - General Internal Medicine 01/07/17 [facility] 06/22/19 Special Services Coordinator Relationship Specialty Start Date End Date Laila Ramos MD [address] [facility] [place] [address] PCP - General Internal Medicine 01/07/17 [facility] 06/22/19 Special Services Coordinator Relationship Specialty Start Date End Date Laila Ramos MD [address] [facility] [place] [address] PCP - General Internal Medicine 01/07/17 [facility] 06/22/19 Special Services Coordinator Relationship Specialty Start Date End Date Laila Ramos MD [address] [facility] [place] [address] PCP - General Internal Medicine 01/07/17 [facility] 06/22/19 Special Services Coordinator Relationship Specialty Start Date End Date Laila Ramos MD [address] [place] [address] PCP - General Internal Medicine 01/07/17 [facility] 06/22/19 Special Services Coordinator Relationship Specialty Start Date End Date Laila Ramos MD [address] [facility] [place] [address] PCP - General Internal Medicine 01/07/17 [facility] 06/22/19 Special Services Coordinator Relationship Specialty Start Date End Date Laila Ramos MD [address] [facility] [place] [address] PCP - General Internal Medicine 01/07/17 [facility] 06/22/19 Special Services Coordinator Relationship Specialty Start Date End Date Laila Ramos MD [address] [facility] [place] [address] PCP - General Internal Medicine 01/07/17 [facility] 06/22/19 Special Services Coordinator Relationship Specialty Start Date End Date Laila Ramos MD [address] [facility] [place] [address] PCP - General Internal Medicine 01/07/17 [facility] 06/22/19 Special Services Coordinator Relationship Specialty Start Date End Date Laila Ramos MD [address] [facility] [place] [address] PCP - General Internal Medicine 01/07/17 [facility] 06/22/19 Special Services Coordinator Relationship Specialty Start Date End Date Laila Ramos MD [address] [facility] [place] [address] PCP - General Internal Medicine 01/07/17 Lili Hawk MD [address] [place] [address] Specialty Field Nurse Neurology 11/17/23 [facility] 06/22/19 Special Services Coordinator Relationship Specialty Start Date End Date Laila Ramos MD [address] [facility] [place] [address] PCP - General Internal Medicine 01/07/17 Lili Hawk MD [address] [address] Specialty Field Nurse Neurology 11/17/23 [facility] 06/22/19 Special Services Coordinator Relationship Specialty Start Date End Date Laila Ramos MD [address] [place], [place] [address] PCP - General Internal Medicine 01/07/17 Lili Hawk MD [address] [address] Specialty Field Nurse Neurology 11/17/23 [facility] 06/22/19 Team Status: Active Member Role Status Dates Dr. Laila Ramos MD Family Provider Active Dr. Laila Ramos MD Primary Care Provider Active Team Status: Inactive Member Role Status Dates Dr. Laila Ramos MD Primary Care Provider Active Dr. Tyler Hairston MD Attending Provider, Referr ing Provider Active Special Services Coordinator Relationship Specialty Start Date End Date Laila Ramos MD [address] [place] [address] PCP - General Internal Medicine 01/07/17 Lili Hawk MD [address] [id number] Specialty Field Nurse Neurology 11/17/23 [facility] 06/22/19 Special Services Coordinator Relationship Specialty Start Date End Date Laila Ramos MD [address] [place] [address] PCP - General Internal Medicine 01/07/17 Lili Hawk MD [address] [id number] Specialty Field Nurse Neurology 11/17/23 [facility] 06/22/19 Special Services Coordinator Relationship Specialty Start Date End Date Laila Ramos MD [address] [place], [place] [id number] PCP - General Internal Medicine 01/07/17 Lili Hawk MD [address] [address] Specialty Field Nurse Neurology 11/17/23 [facility] 06/22/19 Special Services Coordinator Relationship Specialty Start Date End Date Laila Ramos MD [address] [place] [address] PCP - General Internal Medicine 01/07/17 Lili Hawk MD [address] [place] [address] Specialty Field Nurse Neurology 11/17/23 [facility] 06/22/19 Special Services Coordinator Relationship Specialty Start Date End Date Laila Ramos MD [address] [place] [address] PCP - General Internal Medicine 01/07/17 Lili Hawk MD [address] [place] [address] Specialty Field Nurse Neurology 11/17/23 [facility] 06/22/19 Special Services Coordinator Relationship Specialty Start Date End Date Laila Ramos MD [address] [place] [address] PCP - General Internal Medicine 01/07/17 [facility] 06/22/19 Special Services Coordinator Relationship Specialty Start Date End Date Laila Ramos MD [address] [place] [address] PCP - General Internal Medicine 01/07/17 [facility] 06/22/19 Special Services Coordinator Relationship Specialty Start Date End Date Laila Ramos MD [address] [place] [address] PCP - General Internal Medicine 01/07/17 Lili Hawk MD [address] [place] [address] Specialty Field Nurse Neurology 11/17/23 [facility] 06/22/19 Special Services Coordinator Relationship Specialty Start Date End Date Laila Ramos MD [address] [place] [address] PCP - General Internal Medicine 01/07/17 Lili Hawk MD [address] [address] Specialty Field Nurse Neurology 11/17/23 [facility] 06/22/19 Special Services Coordinator Relationship Specialty Start Date End Date Laila Ramos MD [address] [place] [address] PCP - General Internal Medicine 01/07/17 Lili Hawk MD [address] [place] [address] Specialty Field Nurse Neurology 11/17/23 [facility] 06/22/19 Special Services Coordinator Relationship Specialty Start Date End Date Laila Ramos MD [address] [place] [address] PCP - General Internal Medicine 01/07/17 Lili Hawk MD [address] [address] Specialty Field Nurse Neurology 11/17/23 [facility] 06/22/19 Special Services Coordinator Relationship Specialty Start Date End Date Laila Ramos MD [address] [place], [place] [address] PCP - General Internal Medicine 01/07/17 Lili Hawk MD [address] [address] Specialty Field Nurse Neurology 11/17/23 Em Romero, FRUIT HARVESTER.MEDICAL RECORDS SUPERVISOR [address] [place] [address] Digital Photo Printer Internal Medicine 11/06/24 Chloé Farrell FRUIT HARVESTER.CHIPPING MACHINE OPERATOR [address] [place] [address] Digital Photo Printer Internal Medicine 11/06/24 [facility] 06/22/19 Special Services Coordinator Relationship Specialty Start Date End Date Laila Ramos MD [address] [place] [address] PCP - General Internal Medicine 01/07/17 Lili Hawk MD [address] [address] Specialty Field Nurse Neurology 11/17/23 Em Romero, FRUIT HARVESTER.MEDICAL RECORDS SUPERVISOR [address] [place] [address] Digital Photo Printer Internal Medicine 11/06/24 Chloé Farrell FRUIT HARVESTER.CHIPPING MACHINE OPERATOR [address] [place] [address] Digital Photo Printer Internal Medicine 11/06/24 [facility] 7/25/19 Special Services Coordinator Relationship Specialty Start Date End Date Laila Ramos MD [address] [place] [address] PCP - General Internal Medicine 01/07/17 Lili Hawk MD [address] [id number] Specialty Field Nurse Neurology 11/17/23 Em Romero, FRUIT HARVESTER.MEDICAL RECORDS SUPERVISOR [address] [place] [address] Digital Photo Printer Internal Medicine 11/06/24 Chloé Farrell FRUIT HARVESTER.CHIPPING MACHINE OPERATOR [address] [place] [address] Digital Photo Printer Internal Medicine 11/06/24 [facility] 06/22/19 Special Services Coordinator Relationship Specialty Start Date End Date Laila Ramos MD [address] [place] [address] PCP - General Internal Medicine 01/07/17 Lili Hawk MD [address] [place] [address] Specialty Field Nurse Neurology 11/17/23 Em Romero, FRUIT HARVESTER.MEDICAL RECORDS SUPERVISOR [address] [place] [address] Digital Photo Printer Internal Medicine 11/06/24 Chloé Farrell FRUIT HARVESTER.CHIPPING MACHINE OPERATOR [address] [place] [address] Digital Photo Printer Internal Medicine 11/06/24 [facility] 06/22/19 Special Services Coordinator Relationship Specialty Start Date End Date Laila Ramos MD [address] [place] [address] PCP - General Internal Medicine 01/07/17 Lili Hawk MD [address] [place] [address] Specialty Field Nurse Neurology 11/17/23 Em Romero, FRUIT HARVESTER.MEDICAL RECORDS SUPERVISOR [address] [place] [address] Digital Photo Printer Internal Medicine 11/06/24 Chloé Farrell FRUIT HARVESTER.CHIPPING MACHINE OPERATOR [address] [place] [address] Digital Photo Printer Internal Medicine 11/06/24 [facility] 06/22/19 Special Services Coordinator Relationship Specialty Start Date End Date Laila Ramos MD [address] [place] [address] PCP - General Internal Medicine 01/07/17 Lili Hawk MD [address] [place] [address] Specialty Field Nurse Neurology 11/17/23 Em Romero, FRUIT HARVESTER.MEDICAL RECORDS SUPERVISOR [address] [place] [address] Digital Photo Printer Internal Medicine 11/06/24 Chloé Farrell FRUIT HARVESTER.CHIPPING MACHINE OPERATOR [address] [place] [address] Digital Photo Printer Internal Medicine 11/06/24 [facility] 06/22/19 Special Services Coordinator Relationship Specialty Start Date End Date Laila Ramos MD [address] [place] [address] PCP - General Internal Medicine 01/07/17 Lili Hawk MD [address] [facility] [address] [place] [address] Specialty Field Nurse Neurology 11/17/23 Em Romero, DEIDRE.MEDICAL RECORDS SUPERVISOR [address] [place] [address] Digital Photo Printer Internal Medicine 11/06/24 Chloé Farrell FRUIT HARVESTER.CHIPPING MACHINE OPERATOR [address] [place] [address] Digital Photo Printer Internal Medicine 02/20/25 [facility] 06/22/19 Team Status: Active Member Role/Relationship Status Dates Dr. Laila Ramos MD Primary care physician Active Team Status: Inactive Member Role/Relationship Status Dates Dr. Laila Ramos MD Primary care physician Active Start: August 03, 2025 End: August 03, 2025 KERRY Parmar Attending physician Active Sta rt: August 03, 2025 End: August 03, 2025 KERRY Parmar Referring Provider Active Star t: August 03, 2025 End: August 03, 2025 Goals (unrecognized section and content) Goals may be documented in a n alternate sectionGoals may be documented in an alternate section No data available for this sectionGoals may be documented in an alternate section (unrecognized sect ion and content) No Status Records FoundNo Status Records FoundNo Status Records Found INFORMATION SOURCE (unrecogn ized section and content) DATE CREATED AUTHOR 12/20/2024 [facility] DATE CREATED AUTHOR AUTHOR'S ORGANIZ ATION 08/21/2025 [facility] DATE CREATED AUTHOR AUTHOR'S ORGANIZ ATION 10/06/2025 [facility] FOR RECORDS PERTAINING TO PATIENTS WHO ARE OR HAVE BEEN ENROLLED IN A CHEMICAL DEPENDENCY/SUBSTANCEABUSE PROGRAM, SOME INFORMATION MAY BE OMITTED. This clinical summary was aggregated from multiple sources. Caution should be exercised in using it in the provision of clinical care. This summary normalizes information from multiple sources, and as a consequence, information in this document may materially change the coding, format and clinical context of patient data. In addition, data may be omitted in some cases. CLINICAL DECISIONS SHOULD BE BASED ON THE PRIMARY CLINICAL RECORDS. [employer] provides no warranty or guarantee of the accuracy or completeness of information in this document."
== END 2025-11-10 15:28 | disposition home or self-care (01) ==
LOC: SDC 11-10 18:51 → AC 11-10 18:51 → MS3 11-10 18:51
PROVIDERS: PCP Internal Medicine; Referring Provider Urology; Visit Provider Urology
PROC: (CPT 52601; principal; 2025-11-09 11:20)
DX: N40.1 Benign prostatic hyperplasia with lower urinary tract symptoms (principal); N35.919 Unspecified urethral stricture, male, unspecified site; R39.14 Feeling of incomplete bladder emptying; R39.12 Poor urinary stream; Z79.899 Other long term (current) drug therapy
CPT/HCPCS: 52601; 00914; 88305; 88312; 93005; J0744; J2405

== ENCOUNTER 2025-11-14 20:56 | Emergency (ER) | payer MEDICARE, BC, SELFPAY ==
[2025-11-14 20:58] VITALS: BP 160/87; PULSE 60; RESP 16; TEMP 36.4; O2SAT 98; BMI 29.9
[2025-11-14 21:21] LABS: Hematocrit 42.1 % (40-54); Hemoglobin 13.2 g/dL (13.0-16.5); Immature Granulocytes Count 0.050 X10^3/uL (0.0-0.0); Mean Corp Hgb Conc 31.4 g/dL (32-36); Mean Corpuscular Volume 88.3 fL (80-94); Mean Platelet Vol. 11.2 fl (6.2-12.0); NRBC Flagged by Analyzer 0 % (0-5); Platelet Count 171 K/mm3 (150-450); RBC Distribution Width CV 15.9 % (11.6-14.6); RBC Distribution Width SD 51.1 fl (35.1-43.9); Red Blood Count 4.77 M/mm3 (4.6-6.2); White Blood Count 9.9 K/mm3 (4.4-11.0)
[2025-11-14 21:57] LABS: Lipase 47 U/L (13-75)
[2025-11-14 22:01] LABS: Mucous, Urine 0 SEEN /hpf (<or=2+); Squamous Epithelial Cells - UA 0 SEEN /hpf (0-5)
[2025-11-14 22:07] LABS: Color, Urine Yellow (Yellow); Glucose, Dipstick Normal (Normal); Ketone-Dipstick Negative (Negative); Leukocyte Esterase-Dipstick 100 /ul (Negative); Nitrite-Dipstick Negative (Negative); Occult Blood-Urine 250 /ul (Negative); Protein-Dipstick 100 mg/dl (Negative); Specific Gravity, Urine 1.010 (1.002-1.030); Urine Bilirubin Dipstick Negative (Negative)
[2025-11-14 22:08] LABS: AST(SGOT) 36 U/L (<=37); Alanine Aminotransfer ALT/SGPT 15 U/L (<=46); Albumin, Serum 4.2 g/dL (3.4-4.8); Alkaline Phosphatase 99 U/L (40-129); Anion Gap 11 (5-15); BUN 24 mg/dL (4-19); BUN/Creat Ratio 19.0 RATIO (10-20); Calcium,Total 9.0 mg/dL (7.6-11.0); Carbon Dioxide 23.6 mmol/L (21.0-32.0); Chloride 102 mmol/L (98-108); Estimated Creatinine Clearance 52.75 ml/min (50-250); Globulin 3.0 g/dL (2.2-4.2); Glucose 91 mg/dL (70-99); Potassium 4.7 mmol/L (3.3-5.1)
--- OUTSIDE RECORDS SUMMARY | 2025-11-14 22:09 | XMS RPT_ITS | CCD ---
Author Organization [facility] Care Team Providers Care Director Occupational Name Role Phone Laila Ramos MD Primary Care Provider Laila Ramos MD Primary Care Provider Carine GUERRA, Lili Unavailable Laila Ramos MD Primary Care Provider RICHARD GUERRA, DR ULLOA Primary Care Physician Romero INFECTION CONTROL MANAGER.STAVE CUTTING SUPERVISOR, Em Unavailable Jami INFECTION CONTROL MANAGER.LIVESTOCK SPECULATOR, Chloé Unavailable QUINTIN KAY DO Attending Unavailable RICHARD GUERRA, DR ULLOA Primary Care Unavailable EVELIA YIP DO Consulting Unavailable QUINTIN KAY DO Admitting Unavailable LING JIANG-BHARATI HOLT Consulting Unavailcm RAMOS MD, DR ULLOA Primary Care Unavailable RICHARD GUERRA, DR ULLOA Attending Unavailable Jami INFECTION CONTROL MANAGER.LIVESTOCK SPECULATOR, Chloé Unavailable Jami INFECTION CONTROL MANAGER.LIVESTOCK SPECULATOR, Chloé Unavailable [phone] Zonia Ramosa Lakshmi [...] atorvastatin; Translations: [atorvastatin] Drug Allergy 3 [facility] Comment on above: INEFFECTIVE-PER PT-D ON'T WORK (5 sources) Penicillins; Translations: [penicillins] Propensity to adverse reactions 5 [facility] Work Phone: (20 sources) Penicillins Propensity to adverse reactions 5 [facility] Work Phone: (3 sources) Penicillins Propensity to adverse reactions 2 Unknown [facility] Comment on above: DOESN'T WORK-PER PT (1 source) montelukast; Translations: [montelukast] Drug Allergy Justin Christoval (1 source) Propranolol; Translations: [propranolol] Drug Allergy Justin Christoval (1 source) Penicillins Propensity to adverse reactions to drug 5 [facility] (1 source) atorvastatin Drug Allergy 4 [facility] (1 source) Penicillins Drug allergy (disorder) 4 [facility] Medications Current Medications Medication Drug Class(es) [...] Ordered docusate sodium 50 mg / sennosides, snf 8.6 mg oral tablet (3 sources) Start: [...] ORAL) Take by mouth. Active glucosamine/msm/ chondrt/C/hyal (FYUVQZQFOUI-HAREZZKUWLA-ROU ORAL) Take by mouth. 0 Active Comment [...] before meal. Take 1 capsule by [facility] twice daily. 1/2 hr before meal. magnesium [...] Start: 09-13-2024 take 2 tablets by mo [facility] twice daily Start: 11-25-2020 End: 11-20-2024 take [...] tablet by duy th daily at bedtime. Fupykcxp-Kdm-He-Lycop en-Lutein (2 sources) Start: 08-30-2015 Qycpqspr-Bqy-He- Lycopen-Lutein Active 1 EACH PO DAILY August 30, 2015 12:00am Iaxlcdsq-Ovk-Pc-Lycop en-Lutein 1 EACH tablet (1 source) Start: 08-30-2015 MV with Cdh-Scafhzps-Tanucb (CENTRUM SILVER) 0.4-300-250 mg-mcg-mcg tab (20 sources) Start: 11-24-2017 take 1 tablet by mouth once daily MV with Jup-Iwfchudo-Mpu ein (CENTRUM SILVER) 0.4-300-250 mg-mcg-mcg tab Take 1 tablet by mouth once daily. 11/24/2017 Active Start: 11-24-2017 take 1 tablet by duy th once daily MV with Avf-Odzbjzqf-Xjfmeu (CENTRUM SILVER) 0.4-300-250 mg-mcg-mcg tab Take 1 [...] Refill(s) Start Date: 10/17/24 Status: Ordered sennosides, snf 8.6 mg oral tablet (1 source) Start: [...] Comment on above: Take 1 tablet by udy th twice daily. Take 1 tablet by [...] on above: Take 1 capsule by [facility] daily at bedtime. ubidecarenone 100 mg oral [...] on above: Take 2 capsules by m [facility] once daily. vitamin b12 1 [...] qDay, # 60 tab(s), 0 Refill(s), Pharmacy: [facility]/pharmacy #[id number], 180, cm, 10/17/24 17:21:00 EST, Height, kg, 10/17/24 18:07:00 EST, Dosing Weight Start Date: 10/27/24 Status: Ordered Vitamins A,C,L-Jtho-Qnpsrm (2 sources) Start: 08-30-2015 Vitamins A,C,L-Tnkg-Digsfj Active 2 EACH PO DAILY August 30, 2015 12:00am Vitamins A,C,R-Gjrw-Ttohbn 1 EACH tablet,delayed release (DR/EC) (1 source) [...] 1:00am July 24, 2019 11:37am every esperanza [facility] (4 sources) Start: 10-17-2024 [facility] Vitamins A,C, L-jwbr-sqknmz ER 1 tablet, Oral, Daily, 0 Refill(s), 94 Start Date: 10/17/24 Status: Ordered Start: 10-17-2024 [facility] cyanocobalamin 1000 mcg/ml drops - 1000 mcg, Oral, Daily, 0 Refill(s), 94 Start Date: 10/17/24 Status: Ordered Start: 10-17-2024 [facility] izrfgjwd-vcc-XV-lycopen-lutein 1 tab, Oral, Daily, 0 Refill(s), 94 Start Date: 10/17/24 Status: Ordered Start: 10-17-2024 [facility] diltiazem HCL 120 mg/24 hr, [...] current use of drug therapy; Translations: [Other senior living (current) drug therapy] 07-03-2024 Episodic Other aftercare (1 source) Long-term current use of aspirin; Translations: [penitentiary (current) use of aspirin] Episodic Other aftercare (1 source) Other senior living (current) drug therapy; Translations: [Encounter for long-term [...] 25-hydroxyvitamin D3 [Mass/Vol] 57.5 ng/mL Normal 31.0-80.0 [facility] Comment on above: Order Comment: Speci men Type: BLOOD SPECIMENOrdering Facility: [facility] Address: [address] [place] [address] Performed By: #### 1 989-3 ####[facility] LABCLIA [id number] [place] [address] [place] CBC panel Auto (Bld)on 10-04 Erythrocyte distribution width (RBC) [Ratio] 15.8 % High 11.5-15.0 [facility] Comment on above: Order Comment: Speci men Type: BLOOD SPECIMENOrdering Facility: [facility] Address: [address] [place] [address] Performed By: #### 5 8410-2 ####[facility] LABCLIA [id number] [place] [address] [place] Hematocrit (Bld) [Volume fraction] 44.4 % Normal 39.0-51.0 [facility] Comment on above: Order Comment: Speci men Type: BLOOD SPECIMENOrdering Facility: [facility] Address: [address] [place] [address] Performed By: #### 5 8410-2 ####[facility] LABCLIA [id number] [place] [address] [place] Hemoglobin (Bld) [Mass/Vol] 13.6 g/dL Normal 13.0-17.0 [facility] Comment on above: Order Comment: Speci men Type: BLOOD SPECIMENOrdering Facility: [facility] Address: [address] [place] [address] Performed By: #### 5 8410-2 ####[facility] LABCLIA [id number] [place] [address] [place] MCH (RBC) [Entitic mass] 27.6 pg Normal 26.0-34.0 [facility] Comment on above: Order Comment: Speci men Type: BLOOD SPECIMENOrdering Facility: [facility] Address: [address] [place] [address] Performed By: #### 5 8410-2 ####[facility] LABCLIA [id number] [place] [address] [place] MCHC (RBC) [Mass/Vol] 30.6 g/dL Normal 30.5-36.0 [facility] Comment on above: Order Comment: Speci men Type: BLOOD SPECIMENOrdering Facility: [facility] Address: [address] [place] [address] Performed By: #### 5 8410-2 ####[facility] LABCLIA [id number] [place] [address] [place] MCV (RBC) [Entitic vol] 90.1 fL Normal 80.0-100.0 [facility] Comment on above: Order Comment: Speci men Type: BLOOD SPECIMENOrdering Facility: [facility] Address: [address] [place] [address] Performed By: #### 5 8410-2 ####[facility] LABCLIA [id number] [place] [address] [place] Nucleated RBC (Bld) [#/Vol] 10*3/uL Normal <0.01 [facility] Comment on above: Order Comment: Speci men Type: BLOOD SPECIMENOrdering Facility: [facility] Address: [address] [place] [address] Performed By: #### 5 8410-2 ####[facility] LABCLIA [id number] [place] [address] [place] Platelet mean volume (Bld) [Entitic vol] 11.1 fL Normal 9.0-12.7 [facility] Comment on above: Order Comment: Speci men Type: BLOOD SPECIMENOrdering Facility: [facility] Address: [address] [place] [address] Performed By: #### 5 8410-2 ####[facility] LABCLIA [id number] [place] [address] [place] Platelets (Bld) [#/Vol] 148 10*3/uL Low 150-400 [facility] Comment on above: Order Comment: Speci men Type: BLOOD SPECIMENOrdering Facility: [facility] Address: [address] [place] [address] Performed By: #### 5 8410-2 ####[facility] LABCLIA [id number] [place] [address] [place] RBC (Bld) [#/Vol] 4.93 10*6/uL Normal 4.20-6.00 [facility] Comment on above: Order Comment: Speci men Type: BLOOD SPECIMENOrdering Facility: [facility] Address: [address] [place] [address] Performed By: #### 5 8410-2 ####[facility] LABCLIA [id number] [address] STATES OF [facility] WBC (Bld) [#/Vol] 7.97 10*3/uL Normal 3.70-11.00 [facility] Comment on above: Order Comment: Speci men Type: BLOOD SPECIMENOrdering Facility: [facility] Address: [address] [place] [address] Performed By: #### 5 8410-2 ####[facility] LABCLIA [id number] [place] [address] [place] Comprehensive metabolic 2000 panelon 10-04-2025 Albumin [Mass/Vol] 4.2 g/dL Normal 3.9-4.9 [facility] Comment on above: Order Comment: Speci men Type: BLOOD SPECIMENOrdering Facility: [facility] Address: [address] [place] [address] Performed By: #### 1 9123-9, 31298-7, 46553-5 ####[facility] LABCLIA [id number] [place] [address] [place] ALP [Catalytic activity/Vol] 106 U/L Normal 38-113 [facility] Comment on above: Order Comment: Speci men Type: BLOOD SPECIMENOrdering Facility: [facility] Address: [address] [place] [address] Performed By: #### 1 9123-9, 32712-1, 26358-6 ####[facility] LABCLIA [id number] [place] [address] [place] ALT [Catalytic activity/Vol] 10 U/L Normal 10-54 [facility] Comment on above: Order Comment: Speci men Type: BLOOD SPECIMENOrdering Facility: [facility] Address: [address] [place] [address] Performed By: #### 1 9123-9, 35374-4, 98985-8 ####[facility] LABCLIA [id number] [place] [address] [place] Anion gap [Moles/Vol] 11 mmol/L Normal 8-15 [facility] Comment on above: Order Comment: Speci men Type: BLOOD SPECIMENOrdering Facility: [facility] Address: [address] [place] [address] Performed By: #### 1 9123-9, 27429-6, 59849-8 ####[facility] LABCLIA [id number] [place] [address] [place] AST [Catalytic activity/Vol] 18 U/L Normal 14-40 [facility] Comment on above: Order Comment: Speci men Type: BLOOD SPECIMENOrdering Facility: [facility] Address: [address] [place] [address] Performed By: #### 1 9123-9, 53241-5, 78546-2 ####[facility] LABCLIA [id number] [place] [address] [place] Bilirubin [Mass/Vol] 0.7 mg/dL Normal 0.2-1.3 [facility] Comment on above: Order Comment: Speci men Type: BLOOD SPECIMENOrdering Facility: [facility] Address: [address] [place] [address] Performed By: #### 1 9123-9, 62615-4, 34479-2 ####[facility] LABCLIA [id number] [place] [address] [place] Calcium [Mass/Vol] 9.4 mg/dL Normal 8.5-10.2 [facility] Comment on above: Order Comment: Speci men Type: BLOOD SPECIMENOrdering Facility: [facility] Address: [address] [place] [address] Performed By: #### 1 23-9, 46023-2, 00667-3 ####[facility] LABCLIA [id number] [place] [address] [place] Chloride [Moles/Vol] 103 mmol/L Normal 98-107 [facility] Comment on above: Order Comment: Speci men Type: BLOOD SPECIMENOrdering Facility: [facility] Address: [address] [place] [address] Performed By: #### 1 23-9, 41838-6, 07154-6 ####[facility] LABCLIA [id number] [place] [address] [place] CO2 [Moles/Vol] 26 mmol/L Normal 22-30 [facility] Comment on above: Order Comment: Speci men Type: BLOOD SPECIMENOrdering Facility: [facility] Address: [address] [place] [address] Performed By: #### 1 23-9, 55850-4, 67224-7 ####[facility] LABCLIA [id number] [place] [address] [place] Creatinine [Mass/Vol] 1.08 mg/dL Normal 0.73-1.22 [facility] Comment on above: Order Comment: Speci men Type: BLOOD SPECIMENOrdering Facility: [facility] Address: [address] [place] [address] Performed By: #### 1 23-9, 66672-3, 63851-2 ####[facility] LABCLIA [id number] [place] [address] [place] eGFRcr SerPlBld CKD-EPI 2020 68 mL/min/1.73m??? Normal >=60 [facility] Comment on above: Order Comment: Katty villasenor Type: BLOOD SPECIMENOrdering Facility: [facility] Address: [address] [place] [address] Result Comment: Sammie mated Glomerular Filtration Rate [...] actual GFR. Performed By: #### 1 9123-9, 44068-9, ####[facility] [id number] [place] [address] [place] Glucose [Mass/Vol] 109 mg/dL High 74-99 [facility] Comment on above: Order Comment: Katty villasenor Type: BLOOD SPECIMENOrdering Facility: [facility] Address: [address] [place] [address] Result Comment: The [place] Diabetes Association (ADA) provides guidance for cutoff [...] Standards of Medical Care in Diabetes 2016, [place] Diabetes Association. Diabetes Care. 2016.39(Suppl 1). Performed By: #### 1 9123-9, 53753-8, 74545-4 ####[facility] LABIA [id number] [place] [address] [place] Potassium [Moles/Vol] 4.7 mmol/L Normal 3.7-5.1 [facility] Comment on above: Order Comment: Speci men Type: BLOOD SPECIMENOrdering Facility: [facility] Address: [address] [place] [address] Performed By: #### 1 9123-9, 16332-9, 55668-0 ####[facility] LABCLIA [id number] [place] [address] [place] Protein [Mass/Vol] 7.2 g/dL Normal 6.3-8.0 [facility] Comment on above: Order Comment: Speci men Type: BLOOD SPECIMENOrdering Facility: [facility] Address: [address] [place] [address] Performed By: #### 1 9123-9, 33701-5, 51527-8 ####[facility] LABCLIA [id number] [place] [address] [place] Sodium [Moles/Vol] 140 mmol/L Normal 136-144 [facility] Comment on above: Order Comment: Speci men Type: BLOOD SPECIMENOrdering Facility: [facility] Address: [address] [place] [address] Performed By: #### 1 9123-9, 02296-9, 27233-9 ####[facility] LABCLIA [id number] [place] [address] [place] Urea nitrogen [Mass/Vol] 21 mg/dL Normal 9-24 [facility] Comment on above: Order Comment: Speci men Type: BLOOD SPECIMENOrdering Facility: [facility] Address: [address] [place] [address] Performed By: #### 1 9123-9, 09337-0, 45540-6 ####[facility] LABCLIA [id number] [place] [address] [place] HbA1c (Bld)on 10-04-2025 Average glucose Estimated from glycated hemoglobin (Bld) [Mass/Vol] 105 mg/dL Normal [facility] Comment on above: Order Comment: Katty men Type: BLOOD SPECIMENOrdering Facility: [facility] Address: [address] [place] [address] Result Comment: eAG: (Estimated average glucose) is a calculated value from HgbA1c and is sales representative leather goods of the average blood glucose level in the last 2-3 month period. Performed By: #### 5 5454-3 ####[facility] LABCLIA [id number] [place] [address] [place] HbA1c (Bld) [Mass fraction] 5.3 % Normal 4.3-5.6 [facility] Comment on above: Order Comment: Katty jacklyn Type: BLOOD SPECIMENOrdering Facility: [facility] Address: [address] [place] [address] Result Comment: Amer ican Diabetes Association guidelines indicate that patients with HgbA1c in the range 5.7-6.4% are at increased risk for development of diabetes, and intervention by lifestyle modification may be beneficial. HgbA1c greater or equal to 6.5% is considered diagnostic of diabetes. Performed By: #### 5 5454-3 ####[facility] LABCLIA [id number] [place] [address] [place] Lipid 1996 panelon 5 Cholesterol [Mass/Vol] 174 mg/dL Normal <200 [facility] Comment on above: Order Comment: Katty jacklyn Type: BLOOD SPECIMENOrdering Facility: [facility] Address: [address] [place] [address] Result Comment: <200 mg/dL, Desirable 200-239 mg/dL, Borderline high >239 mg/dL, High Performed By: #### 1 9123-9, 03431-4, 32370-6 ####[facility] LABCLIA [id number] [address] [place] Cholesterol in HDL [Mass/Vol] 34 mg/dL Low >39 [facility] Comment on above: Order Comment: Katty jacklyn Type: BLOOD SPECIMENOrdering Facility: [facility] Address: [address] [place] [address] Result Comment: 40-5 9 mg/dL, Acceptable >59 mg/dL, High: Negative risk factor for coronary heart disease <40 mg/dL, Low: Positive risk factor for coronary heart disease Performed By: #### 1 23-9, , ####[facility] LABCLIA [id number] [place] [address] [place] Cholesterol in LDL [Mass/Vol] 110 mg/dL High <100 [facility] Comment on above: Order Comment: Speci men Type: BLOOD SPECIMENOrdering Facility: [facility] Address: [address] [place] [address] Result Comment: <100 mg/dL, Optimal 100-129 mg/dL, Near optimal/above optimal 130-159 mg/dL, Borderline high 160-189 mg/dL, High >189 mg/dL, Very high Secondary prevention optimal LDL Cholesterol levels are recommended to be <70 mg/dL LDL cholesterol is calculated using the Levine-NIH equation. Performed By: #### 1 23-9, , ####[facility] LABCLIA [id number] [place] [address] [place] Cholesterol in LDL/Cholesterol in HDL [Mass ratio] 3.24 {ratio} High <2.54 [facility] Comment on above: Order Comment: Speci men Type: BLOOD SPECIMENOrdering Facility: [facility] Address: [address] [place] [address] Result Comment: Jim jc: 1. National Cholesterol Education Program ATP III Guideline At-A-Glance Quick Desk Reference: National Heart, Lung, and Blood [place]. National Institutes of Health. 2001: NIH Publication No. 01-3305. 2. An International Atherosclerosis Society position paper: global recommendations for the management of dyslipidemia: executive summary, Atherosclerosis. 2014: 232(2):410-413. Performed By: #### 1 9123-9, , ####[facility] LABCLIA [id number] [place] [id number] [place] Cholesterol in VLDL [Mass/Vol] 29 mg/dL Normal <30 [facility] Comment on above: Order Comment: Speci men Type: BLOOD SPECIMENOrdering Facility: [facility] Address: [address] [place] [address] Performed By: #### 1 23-9, 84565-1, 27756-5 ####[facility] LABCLIA [id number] [place] [address] [place] Cholesterol non HDL [Mass/Vol] 140 mg/dL High <130 [facility] Comment on above: Order Comment: Speci men Type: BLOOD SPECIMENOrdering Facility: [facility] Address: [address] [place] [address] Result Comment: <130 mg/dL, Optimal 130-159 mg/dL, Near optimal/above optimal 160-189 mg/dL, Borderline high 190-219 mg/dL, High >219 mg/dL, Very high Secondary prevention optimal non HDL Cholesterol levels are recommended to be <100 mg/dL Performed By: #### 1 9, , 09726-3 ####[facility]CLIA [id number] [place] [address] [place] Cholesterol.total/Cho lesterol in HDL [Mass ratio] 5.12 {ratio} High <5.10 [facility] Comment on above: Order Comment: Speci men Type: BLOOD SPECIMENOrdering Facility: [facility] Address: [address] [place] [address] Performed By: #### 1 239, , ####[facility] LABCLIA [id number] [place] [address] [place] FASTING TIME 12 hrs Normal [facility] Comment on above: Order Comment: Speci men Type: BLOOD SPECIMENOrdering Facility: [facility] Address: [address] [place] [address] Performed By: #### 1 9123-9, , 31557-0 ####[facility] LABCLIA [id number] [place] [address] [place] Triglyceride [Mass/Vol] 172 mg/dL High <150 [facility] Comment on above: Order Comment: Speci men Type: BLOOD SPECIMENOrdering Facility: [facility] Address: [address] [place] [address] Result Comment: <150 mg/dL, Normal 150-199 mg/dL, Borderline high 200-499 mg/dL, High >499 mg/dL, Very high Performed By: #### 1 9123-9, 02875-0, 98902-6 ####[facility] LABCLIA [id number] [place] [address] [place] Magnesium SerPl-mCncon 10-04 Magnesium [Mass/Vol] 2.4 mg/dL High 1.7-2.3 [facility] Comment on above: Order Comment: Speci men Type: BLOOD SPECIMENOrdering Facility: [facility] Address: [address] [place] [address] Performed By: #### 1 9123-9, 68965-1, 30531-4 ####[facility]CLIA [id number] [place] [address] [place] Esophagus Dual Contraston Esophagus Dual Contrast [facility] [address] [place] [address] [id number] Esophagus Dual Contrast MR#: [id number] Acct: [id number] Name: JAQUIEVELIA Jr. Rep #: [id number] : 1940 84 From: Fabian sheikh MD PCP: Dr. Laila Ramos MD Status: REG CLI Study: Esophagus Dual Contrast Date of Exam: 08/03/25 Exam# [id number] Ordering Dr: Chad Mcnamara EXAM: Esophagram barium [...] Unremarkable air-contrast esophagram barium swallow. Reading Location: [place] [address] CC: Dr. 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 ([id number]) 1940 M Date Time Provider Department 07/25/25 [...] He was evaluated by Dr. Mcnamara at [facility], who performed a nasal endoscopy that was [...] N-MSM ORAL) Take by mouth. MV with Urd-Rsmnplen-Hbkojc (CENTRUM SILVER) 0.4-300-250 mg-mcg-mcg tab Take 1 [...] Behavior: Behavio (more content not included)... Normal [facility] 25(OH)D3 [facility] 2024 25-hydroxyvitamin D3 [Mass/Vol] 67.1 ng/mL Normal 31.0-80.0 [facility] Comment on above: Order Comment: Speci men Type: BLOOD SPECIMENOrdering Facility: [facility] Address: [address] [place] [address] Performed By: #### 1 989-3 ####[facility] LABIA [id number] [place] [address] [place] CBC panel Auto (Bld)on 04-10 Erythrocyte distribution width (RBC) [Ratio] 16 % High 11.5 - 15.0 % [facility] Hematocrit (Bld) [Volume fraction] 39.6 % 39.0 - 51.0 % [facility] Hemoglobin (Bld) [Mass/Vol] 12.3 g/dL Low 13.0 - 17.0 g/dL [facility] Interpretation and review of laboratory results Abnormal [facility] MCH (RBC) [Entitic mass] 26.8 pg 26.0 - 34.0 pg [facility] MCHC (RBC) [Mass/Vol] 31.1 g/dL 30.5 - 36.0 g/dL [facility] MCV (RBC) [Entitic vol] 86.3 fL 80.0 - 100.0 fL [facility] Nucleated RBC (Bld) [#/Vol] NINF [facility] Platelet mean volume (Bld) [Entitic vol] 10.9 fL 9.0 - 12.7 fL [facility] Platelets (Bld) [#/Vol] 168 10*3/uL [facility] RBC (Bld) [#/Vol] 4.59 10*6/uL 4.20 - 6.0 0 m/uL [facility] WBC (Bld) [#/Vol] 9.08 10*3/uL [facility] Erythrocyte distribution width (RBC) [Ratio] 16.0 % High 11.5-15.0 [facility] Comment on above: Order Comment: Speci men Type: BLOOD SPECIMENOrdering Facility: [facility] Address: [address] [place] [address] Performed By: #### 5 8410-2 ####[facility] LABCLIA [id number] [address] [place] Hematocrit (Bld) [Volume fraction] 39.6 % Normal 39.0-51.0 [facility] Comment on above: Order Comment: Speci men Type: BLOOD SPECIMENOrdering Facility: [facility] Address: [address] [place] [address] Performed By: #### 5 8410-2 ####[facility] LABIA [id number] [place] [address] [place] Hemoglobin (Bld) [Mass/Vol] 12.3 g/dL Low 13.0-17.0 [facility] Comment on above: Order Comment: Speci men Type: BLOOD SPECIMENOrdering Facility: [facility] Address: [address] [place] [address] Performed By: #### 5 8410-2 ####[facility] LABIA [id number] [place] [address] [place] MCH (RBC) [Entitic mass] 26.8 pg Normal 26.0-34.0 [facility] Comment on above: Order Comment: Speci men Type: BLOOD SPECIMENOrdering Facility: [facility] Address: [address] [place] [address] Performed By: #### 5 8410-2 ####[facility] LABIA [id number] [place] [address] [place] MCHC (RBC) [Mass/Vol] 31.1 g/dL Normal 30.5-36.0 [facility] Comment on above: Order Comment: Speci men Type: BLOOD SPECIMENOrdering Facility: [facility] Address: [address] [place] [address] Performed By: #### 5 8410-2 ####[facility] LABIA [id number] [place] [address] [place] MCV (RBC) [Entitic vol] 86.3 fL Normal 80.0-100.0 [facility] Comment on above: Order Comment: Speci men Type: BLOOD SPECIMENOrdering Facility: [facility] Address: [address] [place] [address] Performed By: #### 5 8410-2 ####[facility] LABCLIA [id number] [place] [address] [place] Nucleated RBC (Bld) [#/Vol] 10*3/uL Normal <0.01 [facility] Comment on above: Order Comment: Speci men Type: BLOOD SPECIMENOrdering Facility: [facility] Address: [address] [place] [address] Performed By: #### 5 8410-2 ####[facility] LABIA [id number] [place] [address] [place] Platelet mean volume (Bld) [Entitic vol] 10.9 fL Normal 9.0-12.7 [facility] Comment on above: Order Comment: Speci men Type: BLOOD SPECIMENOrdering Facility: [facility] Address: [address] [place] [address] Performed By: #### 5 8410-2 ####[facility] LABIA [id number] [place] [address] [place] Platelets (Bld) [#/Vol] 168 10*3/uL Normal 150-400 [facility] Comment on above: Order Comment: Speci men Type: BLOOD SPECIMENOrdering Facility: [facility] Address: [address] [place] [address] Performed By: #### 5 8410-2 ####[facility] LABCLIA [id number] [place] [address] [place] RBC (Bld) [#/Vol] 4.59 10*6/uL Normal 4.20-6.00 [facility] Comment on above: Order Comment: Speci men Type: BLOOD SPECIMENOrdering Facility: [facility] Address: [address] [place] [address] Performed By: #### 5 8410-2 ####[facility] LABCLIA [id number] [place] [id number] [place] WBC (Bld) [#/Vol] 9.08 10*3/uL Normal 3.70-11.00 [facility] Comment on above: Order Comment: Speci men Type: BLOOD SPECIMENOrdering Facility: [facility] Address: [address] [place] [address] Performed By: #### 5 8410-2 ####[facility] LABCLIA [id number] [place] [id number] [place] CNOVon 04-10-2025 CNOV Office Visit (INTMWS ) EVELIA NAILS JR. ([id number]) 1940 M Date Time Provider Department 04/10/25 3:20 PM LAILA RAMOS INTMWS During your visit today, we recorded the following information about you: Pulse Respiration Blood pressure Weight 64/minute 16/minute 116/58 92.5 kg Laila Ramos MD 04/10/2025 4:03 PM Signed This note was created using [employer]. Subjective Evelia Nails Jr. is a 84 [...] N-MSM ORAL) Take by mouth. MV with Vlr-Xlmwpytl-Wcsnga (CENTRUM SILVER) 0.4-300-250 mg-mcg-mcg tab Take 1 [...] Wt 92. (more content not included)... Normal [facility] Comprehensive metabolic 2000 panelon 04-10-2025 Albumin [Mass/Vol] 4.3 g/dL Normal 3.9-4.9 [facility] Comment on above: Order Comment: Speci men Type: BLOOD SPECIMENOrdering Facility: [facility] Address: [address] [place] [address] Performed By: #### 1 9123-9, 88751-6 ####[facility] LABCLIA [id number] [place] [address] [place] ALP [Catalytic activity/Vol] 108 U/L Normal 38-113 [facility] Comment on above: Order Comment: Speci men Type: BLOOD SPECIMENOrdering Facility: [facility] Address: [address] [place] [address] Performed By: #### 1 9123-9, 07010-5 ####[facility] LABCLIA [id number] [place] [address] [place] ALT [Catalytic activity/Vol] 11 U/L Normal 10-54 [facility] Comment on above: Order Comment: Speci men Type: BLOOD SPECIMENOrdering Facility: [facility] Address: [address] [place] [address] Performed By: #### 1 9123-9, ####[facility] LABCLIA [id number] [place] [address] [place] Anion gap [Moles/Vol] 11 mmol/L Normal 8-15 [facility] Comment on above: Order Comment: Speci men Type: BLOOD SPECIMENOrdering Facility: [facility] Address: [address] [place] [address] Performed By: #### 1 9123-9, ####[facility] LABCLIA [id number] [place] [address] [place] AST [Catalytic activity/Vol] 21 U/L Normal 14-40 [facility] Comment on above: Order Comment: Speci men Type: BLOOD SPECIMENOrdering Facility: [facility] Address: [address] [place] [id number] Performed By: #### 1 9123-9, 07356-1 ####[facility] LABCLIA [id number] [place] [address] [place] Bilirubin [Mass/Vol] 0.4 mg/dL Normal 0.2-1.3 [facility] Comment on above: Order Comment: Speci men Type: BLOOD SPECIMENOrdering Facility: [facility] Address: [address] [place] [id number] Performed By: #### 1 9123-9, 21534-3 ####[facility] LABCLIA [id number] [address] [address] [place] Calcium [Mass/Vol] 10.0 mg/dL Normal 8.5-10.2 [facility] Comment on above: Order Comment: Speci men Type: BLOOD SPECIMENOrdering Facility: [facility] Address: [address] [place] [address] Performed By: #### 1 23-9, 93434-6 ####[facility] LABCLIA [id number] [place] [address] [place] Chloride [Moles/Vol] 103 mmol/L Normal 98-107 [facility] Comment on above: Order Comment: Speci men Type: BLOOD SPECIMENOrdering Facility: [facility] Address: [address] [place] [address] Performed By: #### 1 239, ####[facility] LABCLIA [id number] [place] [address] [place] CO2 [Moles/Vol] 25 mmol/L Normal 22-30 [facility] Comment on above: Order Comment: Speci men Type: BLOOD SPECIMENOrdering Facility: [facility] Address: [address] [place] [address] Performed By: #### 1 239, ####[facility] LABCLIA [id number] [address] [address] [place] Creatinine [Mass/Vol] 1.11 mg/dL Normal 0.73-1.22 [facility] Comment on above: Order Comment: Speci men Type: BLOOD SPECIMENOrdering Facility: [facility] Address: [address] [place] [address] Performed By: #### 1 23-9, 40736-6 ####[facility] LABCLIA [id number] [place] [address] [place] Creatinine and Glomerular filtration rate.predicted panel (S/P/Bld) 65 mL/min/1.73m??? Normal >=60 [facility] Comment on above: Order Comment: Katty villasenor Type: BLOOD SPECIMENOrdering Facility: [facility] Address: [address] [place] [address] Result Comment: Sammie mated Glomerular Filtration Rate [...] actual GFR. Performed By: #### 1 9123-9, 29247-1 ####[facility] [id number] [place] [address] [place] Glucose [Mass/Vol] 101 mg/dL High 74-99 [facility] Comment on above: Order Comment: Katty villasenor Type: BLOOD SPECIMENOrdering Facility: [facility] Address: [address] [place] [address] Result Comment: The [place] Diabetes Association (ADA) provides guidance for cutoff [...] Standards of Medical Care in Diabetes 2016, [place] Diabetes Association. Diabetes Care. 2016.39(Suppl 1). Performed By: #### 1 9123-9, 14011-6 ####[facility] [id number] [place] [address] [place] Potassium [Moles/Vol] 4.8 mmol/L Normal 3.7-5.1 [facility] Comment on above: Order Comment: Speci men Type: BLOOD SPECIMENOrdering Facility: [facility] Address: [address] [place] [address] Performed By: #### 1 9123-9, 87460-0 ####[facility] LABCLIA [id number] [place] [address] [place] Protein [Mass/Vol] 7.1 g/dL Normal 6.3-8.0 [facility] Comment on above: Order Comment: Speci men Type: BLOOD SPECIMENOrdering Facility: [facility] Address: [address] [place] [address] Performed By: #### 1 9123-9, 95363-5 ####[facility] LABCLIA [id number] [place] [address] [place] Sodium [Moles/Vol] 139 mmol/L Normal 136-144 [facility] Comment on above: Order Comment: Speci men Type: BLOOD SPECIMENOrdering Facility: [facility] Address: [address] [place] [address] Performed By: #### 1 9123-9, 31649-8 ####[facility] LABIA [id number] [place] [address] [place] Urea nitrogen [Mass/Vol] 24 mg/dL Normal 9-24 [facility] Comment on above: Order Comment: Speci men Type: BLOOD SPECIMENOrdering Facility: [facility] Address: [address] [place] [address] Performed By: #### 1 9123-9, 87371-8 ####[facility] LABCLIA [id number] [place] [address] [place] HbA1c (Bld)on 04-10-2025 Average glucose Estimated from glycated hemoglobin (Bld) [Mass/Vol] 111 mg/dL Normal [facility] Comment on above: Order Comment: Speci men Type: BLOOD SPECIMENOrdering Facility: [facility] Address: [address] [place] [address] Result Comment: eAG: (Estimated average glucose) is a calculated value from HgbA1c and is sales representative leather goods of the average blood glucose level in the last 2-3 month period. Performed By: #### 5 5454-3 ####[facility] LABIA [id number] [place] [address] [place] HbA1c (Bld) [Mass fraction] 5.5 % Normal 4.3-5.6 [facility] Comment on above: Order Comment: Jennai men Type: BLOOD SPECIMENOrdering Facility: [facility] Address: [address] [place] [address] Result Comment: Amer ican Diabetes Association guidelines indicate that patients with HgbA1c in the range 5.7-6.4% are at increased risk for development of diabetes, and intervention by lifestyle modification may be beneficial. HgbA1c greater or equal to 6.5% is considered diagnostic of diabetes. Performed By: #### 5 5454-3 ####[facility] LABIA [id number] [place] [address] [place] Magnesium SerPl-mCncon 04-10 Magnesium [Mass/Vol] 2.3 mg/dL Normal 1.7-2.3 [facility] Comment on above: Order Comment: Speci men Type: BLOOD SPECIMENOrdering Facility: [facility] Address: [address] [place] [address] Performed By: #### 1 9123-9, 53029-4 ####[facility] LABIA [id number] [place] [address] [place] 25(OH)D3 SerPl-mCncon 2023 25-hydroxyvitamin D3 [Mass/Vol] 53.3 ng/mL Normal 31.0-80.0 [facility] Comment on above: Order Comment: Speci men Type: BLOOD SPECIMENOrdering Facility: [facility] Address: [address] [place] [address] Result Comment: Clas sification of 25 OH Vitamin D status: Deficiency/Insufficiency: < or = 30 ng/ml. Sufficiency/Optimal Levels: 31-80 ng/mL Toxicity: > 100 ng/mL. Test performed by chemiluminescent immunoassay. Performed By: #### 1 989-3 ####[facility] LABCLIA [id number] [place] [address] [place] CBC W Auto Differential pane l (Bld)on 11-20-2024 Basophils (Bld) [#/Vol] 0.03 10*3/uL Normal <0.11 [facility] Comment on above: Order Comment: Speci men Type: BLOOD SPECIMENOrdering Facility: [facility] Address: [address] [place] [address] Performed By: #### 5 7021-8 ####[facility] LABCLIA [id number] [place] [address] [place] Basophils/100 WBC (Bld) 0.3 % Normal [facility] Comment on above: Order Comment: Speci men Type: BLOOD SPECIMENOrdering Facility: [facility] Address: [address] [place] [address] Performed By: #### 5 7021-8 ####[facility] LABCLIA [id number] [place] [address] [place] Differential cell count method Nom (Bld) Auto Normal [facility] Comment on above: Order Comment: Speci men Type: BLOOD SPECIMENOrdering Facility: [facility] Address: [address] [place] [address] Performed By: #### 5 7021-8 ####[facility] LABCLIA [id number] [place] [address] [place] Eosinophils (Bld) [#/Vol] 0.13 10*3/uL Normal <0.46 [facility] Comment on above: Order Comment: Speci men Type: BLOOD SPECIMENOrdering Facility: [facility] Address: [address] [place] [address] Performed By: #### 5 7021-8 ####[facility] LABCLIA [id number] [place] [address] [place] Eosinophils/100 WBC (Bld) 1.5 % Normal [facility] Comment on above: Order Comment: Speci men Type: BLOOD SPECIMENOrdering Facility: [facility] Address: [address] [place] [address] Performed By: #### 5 7021-8 ####[facility] LABCLIA [id number] [place] [address] [place] Erythrocyte distribution width (RBC) [Ratio] 17.0 % High 11.5-15.0 [facility] Comment on above: Order Comment: Speci men Type: BLOOD SPECIMENOrdering Facility: [facility] Address: [address] [place] [address] Performed By: #### 5 7021-8 ####[facility] LABCLIA [id number] [place] [address] [place] Hematocrit (Bld) [Volume fraction] 41.9 % Normal 39.0-51.0 [facility] Comment on above: Order Comment: Speci men Type: BLOOD SPECIMENOrdering Facility: [facility] Address: [address] [place] [address] Performed By: #### 5 7021-8 ####[facility] LABCLIA [id number] [place] [address] [place] Hemoglobin (Bld) [Mass/Vol] 13.0 g/dL Normal 13.0-17.0 [facility] Comment on above: Order Comment: Speci men Type: BLOOD SPECIMENOrdering Facility: [facility] Address: [address] [place] [address] Performed By: #### 5 7021-8 ####[facility] LABCLIA [id number] [place] [address] [place] Immature granulocytes (Bld) [#/Vol] 0.05 10*3/uL Normal <0.10 [facility] Comment on above: Order Comment: Speci men Type: BLOOD SPECIMENOrdering Facility: [facility] Address: [address] [place] [address] Performed By: #### 5 7021-8 ####[facility] LABCLIA [id number] [place] [address] [place] Immature granulocytes/100 WBC (Bld) 0.6 % Normal [facility] Comment on above: Order Comment: Speci men Type: BLOOD SPECIMENOrdering Facility: [facility] Address: [address] [place] [address] Performed By: #### 5 7021-8 ####[facility] LABCLIA [id number] [place] [address] [place] Lymphocytes (Bld) [#/Vol] 1.62 10*3/uL Normal 1.00-4.00 [facility] Comment on above: Order Comment: Speci men Type: BLOOD SPECIMENOrdering Facility: [facility] Address: [address] [place] [address] Performed By: #### 5 7021-8 ####[facility] LABCLIA [id number] [place] [address] [place] Lymphocytes/100 WBC (Bld) 18.9 % Normal [facility] Comment on above: Order Comment: Speci men Type: BLOOD SPECIMENOrdering Facility: [facility] Address: [address] [place] [address] Performed By: #### 5 7021-8 ####[facility] LABCLIA [id number] [place] [address] [place] MCH (RBC) [Entitic mass] 27.7 pg Normal 26.0-34.0 [facility] Comment on above: Order Comment: Speci men Type: BLOOD SPECIMENOrdering Facility: [facility] Address: [address] [place] [address] Performed By: #### 5 7021-8 ####[facility] LABCLIA [id number] [place] [address] [place] MCHC (RBC) [Mass/Vol] 31.0 g/dL Normal 30.5-36.0 [facility] Comment on above: Order Comment: Speci men Type: BLOOD SPECIMENOrdering Facility: [facility] Address: [address] [place] [address] Performed By: #### 5 7021-8 ####[facility] LABIA [id number] [place] [address] [place] MCV (RBC) [Entitic vol] 89.3 fL Normal 80.0-100.0 [facility] Comment on above: Order Comment: Speci men Type: BLOOD SPECIMENOrdering Facility: [facility] Address: [address] [place] [address] Performed By: #### 5 7021-8 ####[facility] LABIA [id number] [place] [address] [place] Monocytes (Bld) [#/Vol] 0.55 10*3/uL Normal <0.87 [facility] Comment on above: Order Comment: Speci men Type: BLOOD SPECIMENOrdering Facility: [facility] Address: [address] [place] [address] Performed By: #### 5 7021-8 ####[facility] LABCLIA [id number] [place] [address] [place] Monocytes/100 WBC (Bld) 6.4 % Normal [facility] Comment on above: Order Comment: Speci men Type: BLOOD SPECIMENOrdering Facility: [facility] Address: [address] [place] [address] Performed By: #### 5 7021-8 ####[facility] LABCLIA [id number] [place] [address] [place] Neutrophils (Bld) [#/Vol] 6.20 10*3/uL Normal 1.45-7.50 [facility] Comment on above: Order Comment: Speci men Type: BLOOD SPECIMENOrdering Facility: [facility] Address: [address] [place] [address] Performed By: #### 5 7021-8 ####[facility] LABCLIA [id number] [place] [address] [place] Neutrophils/100 WBC (Bld) 72.3 % Normal [facility] Comment on above: Order Comment: Speci men Type: BLOOD SPECIMENOrdering Facility: [facility] Address: [address] [place] [address] Performed By: #### 5 7021-8 ####[facility] LABCLIA [id number] [place] [address] [place] Nucleated RBC (Bld) [#/Vol] 10*3/uL Normal <0.01 [facility] Comment on above: Order Comment: Speci men Type: BLOOD SPECIMENOrdering Facility: [facility] Address: [address] [place] [address] Performed By: #### 5 7021-8 ####[facility] LABCLIA [id number] [place] [address] [place] Nucleated RBC/100 WBC (Bld) [Ratio] 0.0 /100 WBC Normal [facility] Comment on above: Order Comment: Speci men Type: BLOOD SPECIMENOrdering Facility: [facility] Address: [address] [place] [address] Performed By: #### 5 7021-8 ####[facility] LABCLIA [id number] [place] [address] [place] Platelet mean volume (Bld) [Entitic vol] 10.7 fL Normal 9.0-12.7 [facility] Comment on above: Order Comment: Speci men Type: BLOOD SPECIMENOrdering Facility: [facility] Address: [address] [place] [address] Performed By: #### 5 7021-8 ####[facility] LABCLIA [id number] [place] [address] [place] Platelets (Bld) [#/Vol] 190 10*3/uL Normal 150-400 [facility] Comment on above: Order Comment: Speci men Type: BLOOD SPECIMENOrdering Facility: [facility] Address: [address] [place] [address] Performed By: #### 5 7021-8 ####[facility] LABIA [id number] [place] [address] [place] RBC (Bld) [#/Vol] 4.69 10*6/uL Normal 4.20-6.00 [facility] Comment on above: Order Comment: Speci men Type: BLOOD SPECIMENOrdering Facility: [facility] Address: [address] [place] [address] Performed By: #### 5 7021-8 ####[facility] LABIA [id number] [place] [address] [place] WBC (Bld) [#/Vol] 8.58 10*3/uL Normal 3.70-11.00 [facility] Comment on above: Order Comment: Speci men Type: BLOOD SPECIMENOrdering Facility: [facility] Address: [address] [place] [address] Performed By: #### 5 7021-8 ####[facility] LABIA [id number] [place] [address] [place] CNOVon 11-20-2024 CNOV Office Visit (INTMWS ) EVELIA NAILS JR. ([id number]) 1940 M Date Time Provider Department 11/20/24 10:00 AM LAILA RAMOS INTMWS During your visit today, we recorded the following information about you: Pulse Respiration Blood pressure Weight 69/minute 16/minute 111/70 93 kg Height 1.82 m Laila Ramos MD 11/20/2024 11:42 AM Signed This note was created using [employer]. Subjective Evelia Nails Jr. is a 84 [...] is not currently following up with a project portfolio analyst. He also takes Cardizem 120 mg daily, [...] not yet designated a healthcare power of attorney lawyer. He is considering updating his living will [...] (LOPRESSOR) 50 (more content not included)... Normal [facility] Comprehensive metabolic 2000 panelon 11-20-2024 Albumin [Mass/Vol] 4.5 g/dL Normal 3.9-4.9 [facility] Comment on above: Order Comment: Speci men Type: BLOOD SPECIMENOrdering Facility: [facility] Address: [address] [place] [address] Performed By: #### 2 4323-8 ####[facility] [id number] [place] [address] [place] ALP [Catalytic activity/Vol] 130 U/L High 38-113 [facility] Comment on above: Order Comment: Speci men Type: BLOOD SPECIMENOrdering Facility: [facility] Address: [address] [place] [address] Performed By: #### 2 4323-8 ####[facility] LABIA [id number] [place] [address] [place] ALT [Catalytic activity/Vol] 15 U/L Normal 10-54 [facility] Comment on above: Order Comment: Speci men Type: BLOOD SPECIMENOrdering Facility: [facility] Address: [address] [place] [address] Performed By: #### 2 4323-8 ####[facility] LABIA [id number] [place] [address] [place] Anion gap [Moles/Vol] 10 mmol/L Normal 8-15 [facility] Comment on above: Order Comment: Speci men Type: BLOOD SPECIMENOrdering Facility: [facility] Address: [address] [place] [address] Performed By: #### 2 4323-8 ####[facility] LABCLIA [id number] [place] [address] [place] AST [Catalytic activity/Vol] 18 U/L Normal 14-40 [facility] Comment on above: Order Comment: Speci men Type: BLOOD SPECIMENOrdering Facility: [facility] Address: [address] [place] [address] Performed By: #### 2 4323-8 ####[facility] LABCLIA [id number] [place] [address] [place] Bilirubin [Mass/Vol] 0.4 mg/dL Normal 0.2-1.3 [facility] Comment on above: Order Comment: Speci men Type: BLOOD SPECIMENOrdering Facility: [facility] Address: [address] [place] [address] Performed By: #### 2 4323-8 ####[facility] LABCLIA [id number] [place] [address] [place] Calcium [Mass/Vol] 9.9 mg/dL Normal 8.5-10.2 [facility] Comment on above: Order Comment: Speci men Type: BLOOD SPECIMENOrdering Facility: [facility] Address: [address] [place] [address] Performed By: #### 2 4323-8 ####[facility] LABCLIA [id number] [place] [address] [place] Chloride [Moles/Vol] 104 mmol/L Normal 98-107 [facility] Comment on above: Order Comment: Speci men Type: BLOOD SPECIMENOrdering Facility: [facility] Address: [address] [place] [address] Performed By: #### 2 4323-8 ####[facility] LABCLIA [id number] [place] [address] [place] CO2 [Moles/Vol] 27 mmol/L Normal 22-30 [facility] Comment on above: Order Comment: Speci men Type: BLOOD SPECIMENOrdering Facility: [facility] Address: [address] [place] [address] Performed By: #### 2 4323-8 ####[facility] LABCLIA [id number] [place] [address] [place] Creatinine [Mass/Vol] 0.99 mg/dL Normal 0.73-1.22 [facility] Comment on above: Order Comment: Speci men Type: BLOOD SPECIMENOrdering Facility: [facility] Address: [address] [place] [address] Performed By: #### 2 4323-8 ####[facility] LABCLIA [id number] [facility] [place] [place] [address] [place] Creatinine and Glomerular filtration rate.predicted panel (S/P/Bld) 75 mL/min/1.73m??? Normal >=60 [facility] Comment on above: Order Comment: Speci men Type: BLOOD SPECIMENOrdering Facility: [facility] Address: [address] [place] [address] Result Comment: Sammie mated Glomerular Filtration Rate [...] actual GFR. Performed By: #### 2 4323-8 ####[facility] LABCLIA [id number] [place] [address] [place] Glucose [Mass/Vol] 102 mg/dL High 74-99 [facility] Comment on above: Order Comment: Speci men Type: BLOOD SPECIMENOrdering Facility: [facility] Address: [address] [place] [address] Result Comment: The [place] Diabetes Association (ADA) provides guidance for cutoff [...] Standards of Medical Care in Diabetes 2016, [place] [employer]. Diabetes Care. 2016.39(Suppl 1). Performed By: #### 2 4323-8 ####[facility] LABCLIA [id number] [place] [address] [place] Potassium [Moles/Vol] 5.5 mmol/L High 3.7-5.1 [facility] Comment on above: Order Comment: Speci men Type: BLOOD SPECIMENOrdering Facility: [facility] Address: [address] [place] [address] Performed By: #### 2 4323-8 ####[facility] LABCLIA [id number] [place] [address] [place] Protein [Mass/Vol] 7.4 g/dL Normal 6.3-8.0 [facility] Comment on above: Order Comment: Speci men Type: BLOOD SPECIMENOrdering Facility: [facility] Address: [address] [place] [address] Performed By: #### 2 4323-8 ####[facility] LABCLIA [id number] [place] [address] [place] Sodium [Moles/Vol] 141 mmol/L Normal 136-144 [facility] Comment on above: Order Comment: Speci men Type: BLOOD SPECIMENOrdering Facility: [facility] Address: [address] [place] [address] Performed By: #### 2 4323-8 ####[facility] LABCLIA [id number] [place] [id number] [place] Urea nitrogen [Mass/Vol] 21 mg/dL Normal 9-24 [facility] Comment on above: Order Comment: Speci men Type: BLOOD SPECIMENOrdering Facility: [facility] Address: [address] [place] [address] Performed By: #### 2 4323-8 ####[facility] LABCLIA [id number] [place] [id number] [facility] [place] CNPNon 11-14-2024 CNPN Telephone (INTMWS) EVELIA NAILS JR. ([id number]) 1940 M Date Time Provider Department 11/14/24 [...] Date Reviewed: 11/02/2024 Reviewed by: Em Romero APRN.STAVE CUTTING SUPERVISOR - Fully Assessed Reason for Visit: [...] ORAL) Take by mouth. - MV with Vjw-Wsgimbny-Qrrhmg (CENTRUM SILVER) 0.4-300-250 mg-mcg-mcg tab Take 1 [...] single epi (more content not included)... Normal [facility]20[facility]INT[facility] EVELIA NAILS JR. ([id number]) 1940 M Date Time Provider Department 11/09/24 LAILA RAMOS INTWS During your visit today, we recorded the following information about you: Estrellita Ortega RN 11/09/2024 1:32 PM Signed Thomas KWAN from [facility] calls and is requesting an order for outpatient occupational therapy. Thomas requesting order to be faxed to [facility]. SOBEIDA Vanessa Terri, INFECTION CONTROL MANAGER.STAVE CUTTING SUPERVISOR 11/09/2024 4:20 PM Signed OT for what problem? OK, just need diagnosis they wnt to treat Torri Matute RN 11/09/2024 4:34 PM Signed Called and left a detailed voicemail notifying Thomas KWAN from [facility] of providers message. Clinic phone number was left for him to call and answer providers question. SOBEIDA Ng M Robin, RN 11/10/2024 10:55 AM Signed [facility]- returned call and given provider's message. Thomas reports patient had a left shoulder arthroplasty reverse procedure. Please fax order to [facility]. Em Romero APRN.STAVE CUTTING SUPERVISOR 11/10/2024 12:07 PM Signed ok Lizett Shetty LPN 11/10/2024 12:16 PM Signed Order faxed to [facility] as instructed. 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 - MV with Hgx-Meboebzf-Jaacqa (CENTRUM SILVER) 0.4-300-250 mg-mcg-mcg tab Take 1 [...] Sciatica [M54 (more content not included)... [facility] (INTMWS) EVELIA NAILS JR. ([id number]) 1940 M Date Time Provider Department 11/06/24 LAILA RAMOS INTWS During your visit today, we recorded the following information about you: Estrellita Ortega RN 11/06/2024 1:39 PM Signed Thomas KWAN from [facility] care calls and states that OT has been having issues going out to see patient for OT evaluation. OT is going to evaluate patient today. Call if there is any questions. SOBEIDA Vanessa Terri, INFECTION CONTROL MANAGER.STAVE CUTTING SUPERVISOR 11/06/2024 4:13 PM Signed Does that mean they have not gone out yet? If so, noted. Allergies As of Date: 11/06/2024 Noted Allergy Reaction ATORVASTATIN 05/22/2013 15 - Contraindication-Medica l Avilez* Comments: myalgia, weakness proximal muscle PENICILLINS 07/16/2005 Comments: doesn't work Date Reviewed: 11/02/2024 Reviewed by: Em Romero APRN.STAVE CUTTING SUPERVISOR - Fully Assessed Reason for Visit: [...] ORAL) Take by mouth. - MV with Dlu-Xsxtsosy-Qpgozi (CENTRUM SILVER) 0.4-300-250 mg-mcg-mcg tab Take 1 [...] Paralysis agita (more content not included)... Normal [facility] 11-03-2024 [facility] (INTMWS) EVELIA NAILS JR. ([id number]) 1940 M Date Time Provider Department 11/03/24 LAILA RAMOS INTMWS During your visit today, we recorded the following information about you: Chanelle Peguero LPN 11/03/2024 1:15 PM Signed Joan with [facility], PT calling to let you know they received orders for PT. Pt had left total shoulder arthoplasty done. Dr. Francisco will follow for ortho and they are checking to see if you will follow for medical. Please advise Joan back with verbal order. HENRIETTA Calderon Terri, APRN.STAVE CUTTING SUPERVISOR 11/03/2024 1:29 PM Signed ROSALVA Shetty [...] Date Reviewed: 11/02/2024 Reviewed by: Em Romero APRN.STAVE CUTTING SUPERVISOR - Fully Assessed Reason for Visit: [facility] calling for verbal order [Other] Cmt: PT [...] ORAL) Take by mouth. - MV with Wdy-Hyurvkps-Zrhgdo (CENTRUM SILVER) 0.4-300-250 mg-mcg-mcg tab Take 1 [...] without complication*05 (more content not included)... Normal [facility] CNOVon 11-02-2024 CNOV Office Visit (INTMWS ) EVELIA NAILS JR. ([id number]) 1940 M Date Time Provider Department 11/02/24 9:00 AM EM ROMERO INTMWS During your visit today, we recorded the following information about you: Pulse Respiration Blood pressure Weight 66/minute 16/minute 100/61 93.2 kg Em Romero APRN.STAVE CUTTING SUPERVISOR 11/02/2024 9:45 AM Signed SUBJECTIVE: Shingrix [...] Has home health care coming out from [place], expects first visit on Wednesday. He reports [...] Left shoulder: (more content not included)... [facility] Tele[facility] (INTMWS) EVELIA NAILS JR. ([id number]) 1940 M Date Time Provider Department 10/31/24 LAILA RAMOS INTABDI During your visit today, we recorded the following information about you: Rosa East LPN 10/31/2024 3:33 PM Signed Sulema from [facility] calling she will be faxing a medication list to the office of the medications patient was taking at [facility]. computer shows patient has discharge follow up [...] ORAL) Take by mouth. - MV with Jqx-Qbqbsboi-Ppoefq (CENTRUM SILVER) 0.4-300-250 mg-mcg-mcg tab Take 1 [...] Chronic midline (more content not included)... Normal [facility] 10-25-2024 CNPN Telephone (INTMWS) EVELIA NAILS JR. 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 [facility] is requesting orders for mcc, physical therapy, occupational therapy, and home health aide and is asking if PCP will follow? Please call Cesilia at [facility] at # [phone] extension [phone], if PCP agreeable to follow. SOBEIDA Vanessa Kim E, LPN 10/27/2024 10:58 AM Signed Cesilia calling again needing to know if will cover home care . They are wanting to start care on Wednesday? Please review and advise. HENRIETTA Alva Liza D, MD 10/27/2024 7:40 PM Signed Tried to call number, but office closed. customs compliance analyst for Hospice takes calls. Patient not on office so did not talk to them. Will follow and cover Home Care--see if can call someone on Wednesday AM Rosa East LPN 10/28/2024 9:02 AM Signed Phoned and got operations research scientist for [facility] and was transferred to nurse Frederick and went over notes from Dr Ramos with understanding. Aida Griffin RN 11/03/2024 2:52 PM Signed Jakob PT with [facility] calls to report he did a PT eval only with patient as patient didn't feel he had any further needs. Patient looks to be following with [facility]. Closing encounter. Nothing further needed. [...] ORAL) Take by mouth. - MV with Gxj-Dxfkgvan-Xjtrtn (CENTRUM SILVER) 0.4-300-250 mg-mcg-mcg tab Take 1 [...] [R42] 09/12/2010 (more content not included)... Normal [facility] XR SHOULDER MINIMUM 2 VIEWS LEFTon 10-23-2024 XR SHOULDER MINIMUM 2 VIEWS LEFT ORIGINAL EXAMINATION: 3 XRAY VIEWS OF THE LEFT [id number]/25/2024 12:20 pm COMPARISON: None HISTORY: ORDERING SYSTEM [...] 10/23/2024 3:53:17 PM Ordering Provider: DANUTA GONZALEZ [facility] MA[facility] .GFRon 10-20-2024 GFR >60 [facility] MAIN Comment on above: Result Comment: [...] Performed By: #### B MP, GFR #### [facility] [address] [place] [address] GFR Non- >60 [facility] Comment on above: Result Comment: GFR [...] Performed By: #### B MP, GFR #### [address] [address] BMPon 10-20-2024 BUN/Creatinine Ratio 22.4 ratio High 10.0-22.0 [facility] Comment on above: Performed By: #### B MP, GFR #### [address] [address] Calcium [Mass/Vol] 9.0 mg/dL Normal 8.7-10.[address] [facility] Comment on above: Performed By: #### B MP, GFR #### [address] [address] Chloride [Moles/Vol] 101 mmol/L Normal 98-110 [facility] Comment on above: Performed By: #### B MP, GFR #### [address] [address] CO2 [Moles/Vol] 27 mmol/L Normal 22-32 [facility] Comment on above: Performed By: #### B MP, GFR #### [address] [address] Creatinine [Mass/Vol] 1.07 mg/dL Normal 0.60-1.40 [facility] Comment on above: Result Comment: Test ing performed on Zenfolio analyzer using enzymatic creatinine methodology. Performed By: #### B MP, GFR #### [address] [address] Electrolyte Balance 8.0 mEq/L Normal 4.0-15.0 [facility] Comment on above: Performed By: #### B MP, GFR #### [place] [address] [address] [place] [address] Glucose [Mass/Vol] 96 mg/dL Normal 82-[address] [facility] Comment on above: Performed By: #### B MP, GFR #### [place] [address] [address] [place] [address] Potassium [Moles/Vol] 4.9 mmol/L Normal 3.5-5.0 [facility] Comment on above: Performed By: #### B MP, GFR #### [address] [address] Sodium [Moles/Vol] 136 mmol/L Normal 136-[address] [facility] Comment on above: Performed By: #### B MP, GFR #### [address] [address] Urea nitrogen [Mass/Vol] 24.0 mg/dL High 8.0-22.0 [facility] Comment on above: Performed By: #### B MP, GFR #### [address] [address] LABORATORYOrdered By: SYSTEM SYSTEM on 10-20-2024 Calcium [Mass/Vol] 9.0 mg/dL Normal 8.7 - 10. 4 mg/dL [facility] Chloride [Moles/Vol] 101 mmol/L Normal 98 - 11 0 mEq/L [facility] CO2 [Moles/Vol] 27 mmol/L Normal 22 - 32 mEq/L [facility] Creatinine [Mass/Vol] 1.07 mg/dL Normal 0.60 - 1.40 mg/dL [facility] Comment on above: Interpretive Data: T esting performed on Zenfolio analyzer using enzymatic creatinine methodology. Electrolyte Balance [...] SS .GFRon 10-18-2024 GFR Non- >60 Normal [facility] Comment on above: Result Comment: GFR [...] D IFF, CBC, MORPH, BMP, GFR #### [address] [address] GFR >60 Normal [facility] MA[facility] Comment on above: Result Comment: GFR [...] D IFF, CBC, MORPH, BMP, GFR #### [address] [address] .Manual Diffon 10-18-2024 Bands 1.0 % Normal 0.0-5.0 [facility] Comment on above: Performed By: #### D IFF, CBC, MORPH, BMP, GFR #### [address] [address] Basophil %, Manual 0.0 % Normal 0.0-2.[address] [facility] Comment on above: Performed By: #### D IFF, CBC, MORPH, BMP, GFR #### [address] [address] Basophil, Abs Manual 0.0 10 3/mcL Normal 0.0-0.3 [facility] Comment on above: Performed By: #### D IFF, CBC, MORPH, BMP, GFR #### [address] [address] Eosinophil %, Manual 5.0 % Normal 0.0-6.0 [facility] Comment on above: Performed By: #### D IFF, CBC, MORPH, BMP, GFR #### [address] [address] Eosinophil, Abs Manual 0.3 10 3/mcL Normal 0.0-0.7 [facility] Comment on above: Performed By: #### D IFF, CBC, MORPH, BMP, GFR #### [address] [address] Lymphocyte %, Manual 18.0 % Low 20.0-40.0 [facility] Comment on above: Performed By: #### D IFF, CBC, MORPH, BMP, GFR #### [address] [address] Lymphocyte, Abs Manual 1.3 10 3/mcL Normal 0.9-4.3 [facility] Comment on above: Performed By: #### D IFF, CBC, MORPH, BMP, GFR #### [address] [address] Monocyte %, Manual 4.0 % Normal 2.0-13.[address] [facility] Comment on above: Performed By: #### D IFF, CBC, MORPH, BMP, GFR #### [address] [address] Monocyte, Abs Manual 0.3 10 3/mcL Normal 0.1-1.4 [facility] Comment on above: Performed By: #### D IFF, CBC, MORPH, BMP, GFR #### [address] [address] Neutrophil %, Manual 72.0 % Normal 50.0-75.0 [facility] Comment on above: Performed By: #### D IFF, CBC, MORPH, BMP, GFR #### [address] [address] Neutrophil, Abs Manual 5.1 10 3/mcL Normal 2.3-8.1 [facility] Comment on above: Performed By: #### D IFF, CBC, MORPH, BMP, GFR #### [place] [address] Nucleated RBC 0.0 /100 WBC Normal [facility] Comment on above: Performed By: #### D IFF, CBC, MORPH, BMP, GFR #### [place] [address] .Morphon 10-18-2024 Anisocytosis Ql (Bld) 1+ Normal [facility] Comment on above: Performed By: #### D IFF, CBC, MORPH, BMP, GFR #### [place] [address] Ovalocytes 1+ Normal [facility] Comment on above: Performed By: #### D IFF, CBC, MORPH, BMP, GFR #### [place] [address] Platelet Estimate Normal [facility] MAIN Comment on above: Performed By: #### D IFF, CBC, MORPH, BMP, GFR #### [place] [address] Poik 1+ Normal [facility] MA[facility] Comment on above: Performed By: #### D IFF, CBC, MORPH, BMP, GFR #### [address] 10-18-2024 BUN/Creatinine Ratio 23.2 ratio High 10.0-22.0 [facility] Comment on above: Performed By: #### D IFF, CBC, MORPH, BMP, GFR #### [place] [address] Calcium [Mass/Vol] 9.0 mg/dL Normal 8.7-10.[address] [facility] Comment on above: Performed By: #### D IFF, CBC, MORPH, BMP, GFR #### [place] [address] Chloride [Moles/Vol] 104 mmol/L Normal 98-110 [facility] Comment on above: Performed By: #### D IFF, CBC, MORPH, BMP, GFR #### [place] [address] CO2 [Moles/Vol] 25 mmol/L Normal 22-32 [facility] Comment on above: Performed By: #### D IFF, CBC, MORPH, BMP, GFR #### [address] [address] Creatinine [Mass/Vol] 0.95 mg/dL Normal 0.60-1.40 [facility] Comment on above: Result Comment: Test ing performed on Zenfolio analyzer using enzymatic creatinine methodology. Performed By: #### D IFF, CBC, MORPH, BMP, GFR #### [address] [address] Electrolyte Balance 9.0 mEq/L Normal 4.0-15.0 [facility] Comment on above: Performed By: #### D IFF, CBC, MORPH, BMP, GFR #### [address] [address] Glucose [Mass/Vol] 91 mg/dL Normal 82-[address] [facility] Comment on above: Performed By: #### D IFF, CBC, MORPH, BMP, GFR #### [address] [address] Potassium [Moles/Vol] 5.0 mmol/L Normal 3.5-5.0 [facility] Comment on above: Performed By: #### D IFF, CBC, MORPH, BMP, GFR #### [address] [address] Sodium [Moles/Vol] 138 mmol/L Normal 136-[address] [facility] Comment on above: Performed By: #### D IFF, CBC, MORPH, BMP, GFR #### [address] [address] Urea nitrogen [Mass/Vol] 22.0 mg/dL Normal 8.0-22.0 [facility] Comment on above: Performed By: #### D IFF, CBC, MORPH, BMP, GFR #### [address] [address] CBCon 10-18-2024 Erythrocyte distribution width (RBC) [Ratio] 16.4 % High 11.5-15.5 [facility] Comment on above: Performed By: #### D IFF, CBC, MORPH, BMP, GFR #### [place] [address] Hematocrit (Bld) [Volume fraction] 36.2 % Low 40.0-52.0 [facility] Comment on above: Performed By: #### D IFF, CBC, MORPH, BMP, GFR #### [place] [address] Hgb 11.9 G/dL Low 13.0-17.5 [facility] Comment on above: Performed By: #### D IFF, CBC, MORPH, BMP, GFR #### [place] [address] MCH (RBC) [Entitic mass] 27.3 pg Normal 27.0-33.0 [facility] Comment on above: Performed By: #### D IFF, CBC, MORPH, BMP, GFR #### [place] [address] MCHC 32.8 G/dL Normal 32.0-36.0 [facility] Comment on above: Performed By: #### D IFF, CBC, MORPH, BMP, GFR #### [place] [address] MCV (RBC) [Entitic vol] 83.2 fL Normal 81.0-100.0 [facility] Comment on above: Performed By: #### D IFF, CBC, MORPH, BMP, GFR #### [place] [address] Platelet 166 10 3/mcL Normal 150-450 [facility] Comment on above: Performed By: #### D IFF, CBC, MORPH, BMP, GFR #### [place] [address] Platelet mean volume (Bld) [Entitic vol] 8.6 fL Normal 6.4-10.5 [facility] Comment on above: Performed By: #### D IFF, CBC, MORPH, BMP, GFR #### [place] [address] RBC 4.35 10 6/mcL Low 4.50-6.00 [facility] Comment on above: Performed By: #### D IFF, CBC, MORPH, BMP, GFR #### [address] [address] WBC 7.1 10 3/mcL Normal 4.5-10.8 [facility] Comment on above: Performed By: #### D IFF, CBC, MORPH, BMP, GFR #### [address] [address] LABORATORYOrdered By: SYSTEM SYSTEM on 10-18-2024 Anisocytosis [...] above: Interpretive Data: T esting performed on Zenfolio analyzer using enzymatic creatinine methodology. Electrolyte Balance [...] (S/P/Bld) [Vol rate/Area] ml/min/1.73sqm Invalid Interpretation Code [employer] [facility] Comment on above: Interpretive Data: [...] (S/P/Bld) [Vol rate/Area] ml/min/1.73sqm Invalid Interpretation Code [employer] [facility] Comment on above: Interpretive Data: [...] )on 10-13-2024 BUN/CRE 14.8 RATIO Normal 10-20 [facility] Comment on above: Performed By: #### L 500.2500, L100.0500 ####[facility] [address] [place], [address] CA,Total 8.7 mg/dL Normal 8.5-10.1 [facility] Comment on above: Performed By: #### L 500.2500, L100.0500 ####[facility] [address] [place], [address] Chloride [Moles/Vol] 106 mmol/L Normal 98-107 [facility] Comment on above: Performed By: #### L 500.2500, L100.0500 ####[facility] [address] [place], [address] CO2 [Moles/Vol] 26.0 mmol/L Normal 21.0-32.0 [facility] Comment on above: Performed By: #### L 500.2500, L100.0500 ####[facility] [address] [place], [address] Creatinine [Mass/Vol] 1.15 mg/dL Normal 0.70-1.30 [facility] Comment on above: Result Comment: The validity of the calculated GFR GFRAA in patients over 70 years has not been determined. Clinical correlation is essential. Performed By: #### L 500.2500, L100.0500 ####[facility] [address] [place], [address] ECRCL 56.99 ml/min Normal [facility] Comment on above: Performed By: #### L 500.2500, L100.0500 ####[facility] [address] [place], [address] EST GFR - AA 78 mL/min Normal >60 [facility] Comment on above: Result Comment: Afri can Marshallese GFR Calc Performed By: #### L 500.2500, L100.0500 ####[facility] [address] [place], [address] GAP 5 Normal 5-15 [facility] Comment on above: Performed By: #### L 500.2500, L100.0500 ####[facility] [address] [place], [address] GFR/1.73 sq M.predicted among non-blacks MDRD (S/P/Bld) [Vol rate/Area] 64 mL/min/{1.73_m2} Normal >60 [facility] Comment on above: Result Comment: Non- GFR Calc Performed By: #### L 500.2500, L100.0500 ####[facility] [address] [place], [address] Glucose [Mass/Vol] 101 mg/dL Normal 74-[address] [facility] Comment on above: Result Comment: Fast ing Glucose result from 100 to 125 mg/dL suggests IMPAIRED HOMEOSTASIS per A.D.A. criteria. Performed By: #### L 500.2500, L100.0500 ####[facility] [address] [place], [address] Potassium [Moles/Vol] 3.9 mmol/L Normal 3.5-5.1 [facility] Comment on above: Performed By: #### L 500.2500, L100.0500 ####[facility] [address] [place], [address] Sodium [Moles/Vol] 137 mmol/L Normal 136-[address] [facility] Comment on above: Performed By: #### L 500.2500, L100.0500 ####[facility] [address] [place], [address] Urea nitrogen [Mass/Vol] 17 mg/dL Normal 7-18 [facility] Comment on above: Performed By: #### L 500.2500, L100.0500 ####[facility] [address] [place], [address] CBC-Complete Blood Cnt No Di ffon 10-13-2024 Erythrocyte distribution width (RBC) [Ratio] 15.9 % High 11.6-14.6 [facility] Comment on above: Performed By: #### L 500.2500, L100.0500 #### [facility] [address] [place], [address] Hematocrit (Bld) [Volume fraction] 33.7 % Low 40-54 [facility] Comment on above: Performed By: #### L 500.2500, L100.0500 #### [facility] [address] [place], [address] Hemoglobin (Bld) [Mass/Vol] 10.5 g/dL Low 13.0-16.5 [facility] Comment on above: Performed By: #### L 500.2500, L100.0500 #### [facility] [address] [place], [address] MCH (RBC) [Entitic mass] 26.9 pg Low 27.0-32.0 [facility] Comment on above: Performed By: #### L 500.2500, L100.0500 #### [facility] [address] [place], [address] MCHC (RBC) [Mass/Vol] 31.2 g/dL Low 32-36 [facility] Comment on above: Performed By: #### L 500.2500, L100.0500 #### [facility] [address] [place], [address] MCV (RBC) [Entitic vol] 86.4 fL Normal 80-94 [facility] Comment on above: Performed By: #### L 500.2500, L100.0500 #### [facility] [address] [place], [address] Platelet mean volume (Bld) [Entitic vol] 10.9 fL Normal 6.2-12.0 [facility] Comment on above: Performed By: #### L 500.2500, L100.0500 #### [facility] [address] [place] [place], [address] Platelets (Bld) [#/Vol] 135 10*3/uL Low 150-450 [facility] Comment on above: Performed By: #### L 500.2500, L100.0500 #### [facility] [address] [place], [address] RBC (Bld) [#/Vol] 3.90 10*6/uL Low 4.6-6.2 [facility] Comment on above: Performed By: #### L 500.2500, L100.0500 #### [facility] [address] [place] [place], [address] RDW SD 49.6 fl High 35.1-43.9 [facility] Comment on above: Performed By: #### L 500.2500, L100.0500 #### [facility] [address] [place], [address] WBC (Bld) [#/Vol] 9.4 10*3/uL Normal 4.4-11.[address] [facility] Comment on above: Performed By: #### L 500.2500, L100.0500 #### [facility] [address] [place] [place], [address] Discharge Instructionon 09-29 Discharge Instruction [facility] Medical Records Department [address] [place] [address] Instructions for Home/Discharge Instructions 10/13/24 1129 MR#: [id number] Acct: [id number] Name: EVELIA NAILS Jr. Rep #: [id number] : 1940 83 From: Shirley PAYNE PCP: [...] Primary Care Provider: Laila Ramos Consulting Providers: Chad Castrejon Discharge Orders/Prescriptions Prescriptions: New acetaminophen 500 [...] 100 MG capsule 100 mg PO DAILY rllcczbq-dxy-OQ-lycopen -lutein 1 EACH tablet 1 ea PO DAILY cyanocobalamin (vitamin B-12) 1,000 MCG/ML drops 1,000 mcg PO DAILY vitamins A,C,E-upvy-exzwqv 1 EACH tablet,delayed release (DR/EC) 2 ea [...] MD; Dr. Laila Ramos MD Signed Normal [facility] Bedside Glucoseon 10-12-2024 FINGERSTICK GLU 156 mg/dL High 74-106 [facility] Comment on above: Result Comment: DILEEP NAVARRO OF PATIENT CARE PER NURSING PROTOCOL Performed By: #### L 501.080 ####[facility] [address] [place], [place], [address] Decalcification bone/plaqueo n 10-12-2024 Decalcification bone/plaque Patient Age/Sex Location Account Attending Physician EVELIA NAILS Jr. 83/M MS3 [id number] Dr. Gabo Francisco DO Specimen: [id number] Received: 10/12/24 Status: CARLY Rose Num: [id number] Spec Type: HUMERUS Subm Dr: Dr. Gabo Francisco DO [facility] OPERATION: Total shoulder replacement PRE-OP DIAGNOSIS: Severe [...] osteophyte formation. No soft tissue is identified. Referral Agent sections are submitted in two cassettes after decalcification. / SJ:mr 10/12/2024 TC: CPT: 01764, 61122 Patient Age/Sex Location Account Attending Physician EVELIA NAILS Jr. 83/M MS3 [id number] Dr. Gabo Francisco, DO Signed (signature on file) Dr. Ekaterina Henderson MD 10/18/24 1251 Normal [facility] Comment on above: Performed By: #### P DEC #### [facility] [place], [address] MR/POSTOP.ANEon 10-12-2024 MR/POSTOP.ANE [facility] Medical Records Department [address] [place] [address] Anesthesia Postop Eval I 10/12/24 1533 MR#: [id number] Acct: [id number] Name: EVELIA NAILS Jr. Rep #: [id number] : 1940 83 From: Robel De Leon CRNA PCP: Dr. Laila Ramos MD Status:ADM LEONARDO Y Race: C Location: [place] [address]-1 Anesthesia: Postop Eval I Current Vital Signs [...] CRNA Cosigner Signature: Date CC: Signed Normal [facility] MR/SMCSYKTY2gh 10-12-2024 MR/POSTOPAN2 [facility] Medical Records Department [address] [place] [address] Anesthesia Postop Eval II 10/12/24 1647 MR#: [id number] Acct: [id number] Name: EVELIA NAILS Jr. Rep #: [id number] : 1940 83 From: Wayne Christopher MD PCP: Dr. Laila Ramos MD Status:ADM LEONARDO Y Race: C Location: [place] [address] Anesthesia Postop Eval I Sum Postop Eval Completion status Anesthesia document: Postop Eval 1 completed: Yes Anesthesia Postop Eval I Summary Anesthesia Postop Eval I Summary: Anesthesia Postop Eval I: Assessment Summary Airway patent Yes 10/12/24 15:34 MAGNETIC RESONANCE IMAGING COORDINATOR.JBLOU Spontaneous unlabored Yes 10/12/24 15:34 MAGNETIC RESONANCE IMAGING COORDINATOR.JBLOU respirations Mental status Awake,Calm 10/12/24 15:34 MAGNETIC RESONANCE IMAGING COORDINATOR.JBLOU nausea No 10/12/24 15:34 MAGNETIC RESONANCE IMAGING COORDINATOR.JBLOU Vomiting No 10/12/24 15:34 MAGNETIC RESONANCE IMAGING COORDINATOR.JBLOU Anesthesia Postop Eval I: Fluid Summary Crystalloid volume administer 1,500 10/12/24 15:34 MAGNETIC RESONANCE IMAGING COORDINATOR.JBLOU (ml) Colloids volume administered ( ml) Blood Product volume administered (ml) Total IV fluid infused 1,500 10/12/24 15:34 MAGNETIC RESONANCE IMAGING COORDINATOR.JBLOU Anesthesia Postop Eval I: Summary Notes Anesthesia Complication No 10/12/24 15:34 MAGNETIC RESONANCE IMAGING COORDINATOR.JBLOU Anesthesia Complication Comment: Post-operative progress note Anesthesia: Postop Eval II Evaluation Mental status: Awake Pain Level: 0 nausea: No Vomiting: No 10/12/24 1647 Date Wayne Jovel Signature: Date CC: Signed Normal [facility] Operative Reporton 4 Operative Report [facility] Medical Records Department [address] [place] [address] Operative Report 10/12/24 1056 MR#: [id number] Acct: [id number] Name: EVELIA NAILS Jr. Rep #: [id number] : 1940 83 From: Gabo Francisco DO PCP: Dr. Laila Ramos MD Status:[facility] Location: [place] [address] Operative Report (Standard) Operative Information Surgery/Procedure Performed: [...] total shoulder arthroplasty Surgeon: Gabo Francisco DO Box Lidder: Shirley Hopkins PA-C Anesthesia: General endotracheal Abstract Manager: Robel De Leon CRNA Complications: None apparent [...] with surgery. Surgical details: Patient arrived to [facility] morning of the procedure and was greeted [...] positioned in the beachchair position. A well-padded overhead irrigator was applied. The nonoperative extremity was placed [...] then ampu (more content not included)... Normal [facility] Shoulder min 2 Viewson 10-12 Shoulder min 2 Views [facility] Imaging Services [address] [place] [address] Shoulder min 2 Views MR#: [id number] Acct: [id number] Name: EVELIA NAILS Jr. Rep #: [id number] : 1940 M 83 From: Jorge Durbin MD PCP: Dr. Laila Ramos MD Status: [facility] Study: Shoulder min 2 Views Date of Exam: 10/12/24 Exam# [id number] Ordering Dr: [place] [id number] STUDY: X-RAY - LEFT SHOULDER REASON FOR [...] 11:41 EST Reading Location ID and State: [address] [place] [address] , Service support , CC: Dr. Laila Ramos MD; Dr. 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 Normal [facility] MRSA/SAID NASAL SCREENon MRSA+SAID SCRN Reason for Exam: PRE OP MRSA MRSA Negative S. AUREUS S. aureus PositiveA Normal [facility] Comment on above: Performed By: #### M 100.651, L501.1800, L500.2500, L100.0100 ####[facility] [address] [place], [address] Albumin, Serumon 09-28-2024 Albumin [Mass/Vol] 3.4 g/dL Normal 3.2-5.[address] [facility] Comment on above: Performed By: #### M 100.651, L501.1800, L500.2500, L100.0100 ####[facility] [address] [place], [address] Basic Metabolic Profile (BMP )on 09-28-2024 BUN/CRE 15.9 RATIO Normal 10-20 [facility] Comment on above: Performed By: #### M 100.651, L501.1800, L500.2500, L100.0100 ####[facility] [address] [place], [address] CA,Total 9.1 mg/dL Normal 8.5-10.1 [facility] Comment on above: Performed By: #### M 100.651, L501.1800, L500.2500, L100.0100 ####[facility] [address] [place], [address] Chloride [Moles/Vol] 107 mmol/L Normal 98-107 [facility] Comment on above: Performed By: #### M 100.651, L501.1800, L500.2500, L100.0100 ####[facility] [address] [place], [address] CO2 [Moles/Vol] 26.0 mmol/L Normal 21.0-32.0 [facility] Comment on above: Performed By: #### M 100.651, L501.1800, L500.2500, L100.0100 ####[facility] [address] [place], [address] Creatinine [Mass/Vol] 1.26 mg/dL Normal 0.70-1.30 [facility] Comment on above: Result Comment: The validity of the calculated GFR GFRAA in patients over 70 years has not been determined. Clinical correlation is essential. Performed By: #### M 100.651, L501.1800, L500.2500, L100.0100 ####[facility] [address] [place], [address] EST GFR - AA 70 mL/min Normal >60 [facility] Comment on above: Result Comment: Afri can Marshallese GFR Calc Performed By: #### M 100.651, L501.1800, L500.2500, L100.0100 ####[facility] [address] [place], [address] GAP 4 Low 5-15 [facility] Comment on above: Performed By: #### M 100.651, L501.1800, L500.2500, L100.0100 ####[facility] [address] [place], [address] GFR/1.73 sq M.predicted among non-blacks MDRD (S/P/Bld) [Vol rate/Area] 58 mL/min/{1.73_m2} Low >60 [facility] Comment on above: Result Comment: Non- GFR Calc Performed By: #### M 100.651, L501.1800, L500.2500, L100.0100 ####[facility] [address] [place], [address] Glucose [Mass/Vol] 128 mg/dL High 74-[address] [facility] Comment on above: Result Comment: Fast ing Glucose result greater than or equal to 126 mg/dL suggests DIABETES MELLITUS per A.D.A. criteria. Performed By: #### M 100.651, L501.1800, L500.2500, L100.0100 ####[facility] [address] [place], [address] Potassium [Moles/Vol] 4.5 mmol/L Normal 3.5-5.1 [facility] Comment on above: Performed By: #### M 100.651, L501.1800, L500.2500, L100.0100 ####[facility] [address] [place], [address] Sodium [Moles/Vol] 137 mmol/L Normal 136-[address] [facility] Comment on above: Performed By: #### M 100.651, L501.1800, L500.2500, L100.0100 ####[facility] [address] [place], [address] Urea nitrogen [Mass/Vol] 20 mg/dL High 7-18 [facility] Comment on above: Performed By: #### M 100.651, L501.1800, L500.2500, L100.0100 ####[facility] [address] [place], [address] CBC W/Diff, Automatedon 10-3 -2023 Absolute Lymph 1.61 X10 3/uL Normal 0.83-4.51 [facility] Comment on above: Performed By: #### M 100.651, L501.1800, L500.2500, L100.0100 ####[facility] [address] [place], [address] Absolute Neut 6.4 X10 3/uL Normal 2.0-7.7 [facility] Comment on above: Performed By: #### M 100.651, L501.1800, L500.2500, L100.0100 ####[facility] [address] [place], [address] Basophils/100 WBC (Bld) 0.6 % Normal 0-1 [facility] Comment on above: Performed By: #### M 100.651, L501.1800, L500.2500, L100.0100 ####[facility] [address] [place], [address] Eosinophils/100 WBC (Bld) 1.3 % Normal 0-5 [facility] Comment on above: Performed By: #### M 100.651, L501.1800, L500.2500, L100.0100 ####[facility] [address] [place], [address] Erythrocyte distribution width (RBC) [Ratio] 15.4 % High 11.6-14.6 [facility] Comment on above: Performed By: #### M 100.651, L501.1800, L500.2500, L100.0100 ####[facility] [address] [place], [address] Hematocrit (Bld) [Volume fraction] 39.8 % Low 40-54 [facility] Comment on above: Performed By: #### M 100.651, L501.1800, L500.2500, L100.0100 ####[facility] [address] [place], [address] Hemoglobin (Bld) [Mass/Vol] 12.2 g/dL Low 13.0-16.5 [facility] Comment on above: Performed By: #### M 100.651, L501.1800, L500.2500, L100.0100 ####[facility] [address] [place], [address] IG% 0.800 Normal 0.0-0.9 [facility] Comment on above: Result Comment: IG% - Immature Granulocytes (promyelocytes, myelocytes and metamyelocytes) > 1% indicates that a LEFT SHIFT is Present. Performed By: #### M 100.651, L501.1800, L500.2500, L100.0100 ####[facility] [address] [place], [address] Lymphocytes/100 WBC (Bld) 18.4 % Low 19-41 [facility] Comment on above: Performed By: #### M 100.651, L501.1800, L500.2500, L100.0100 ####[facility] [address] [place], [address] MCH (RBC) [Entitic mass] 26.4 pg Low 27.0-32.0 [facility] Comment on above: Performed By: #### M 100.651, L501.1800, L500.2500, L100.0100 ####[facility] [address] [place], [address] MCHC (RBC) [Mass/Vol] 30.7 g/dL Low 32-36 [facility] Comment on above: Performed By: #### M 100.651, L501.1800, L500.2500, L100.0100 ####[facility] [address] [place], [address] MCV (RBC) [Entitic vol] 86.1 fL Normal 80-94 [facility] Comment on above: Performed By: #### M 100.651, L501.1800, L500.2500, L100.0100 ####[facility] [address] [place], [address] Monocytes/100 WBC (Bld) 5.4 % Normal 0-10 [facility] Comment on above: Performed By: #### M 100.651, L501.1800, L500.2500, L100.0100 ####[facility] [address] [place], [address] Neutrophils/100 WBC (Bld) 73.5 % High 47-70 [facility] Comment on above: Performed By: #### M 100.651, L501.1800, L500.2500, L100.0100 ####[facility] [address] [place], [address] Nucleated RBC (Bld) [#/Vol] 0 10*3/uL Normal 0-5 [facility] Comment on above: Performed By: #### M 100.651, L501.1800, L500.2500, L100.0100 ####[facility] [address] [place], [address] Platelet mean volume (Bld) [Entitic vol] 10.1 fL Normal 6.2-12.0 [facility] Comment on above: Performed By: #### M 100.651, L501.1800, L500.2500, L100.0100 ####[facility] [address] [place], [address] Platelets (Bld) [#/Vol] 212 10*3/uL Normal 150-450 [facility] Comment on above: Performed By: #### M 100.651, L501.1800, L500.2500, L100.0100 ####[facility] [address] [place], [address] RBC (Bld) [#/Vol] 4.62 10*6/uL Normal 4.6-6.2 [facility] Comment on above: Performed By: #### M 100.651, L501.1800, L500.2500, L100.0100 ####[facility] [address] [place], [address] RDW SD 47.8 fl High 35.1-43.9 [facility] Comment on above: Performed By: #### M 100.651, L501.1800, L500.2500, L100.0100 ####[facility] [address] [place], [address] WBC (Bld) [#/Vol] 8.7 10*3/uL Normal 4.4-11.[address] [facility] Comment on above: Performed By: #### M 100.651, L501.1800, L500.2500, L100.0100 ####[facility] [address] [place], [address] Magnesiumon 09-28-2024 Magnesium [Mass/Vol] 2.4 mg/dL Normal 1.6-2.6 [facility] Comment on above: Performed By: #### L 501.5200 ####[facility] [address] [place], [address] Basic Metabolic Profile (BMP )on 09-27-2024 BUN Normal 7-18 [facility] Comment on above: Result Comment: PT L EFT Performed By: #### L 100.0100, L500.2500 ####[facility] [address] [place], [address] BUN/CRE Normal 10-20 [facility] Comment on above: Result Comment: PT L EFT Performed By: #### L 100.0100, L500.2500 ####[facility] [address] [place], [address] CA,Total Normal 8.5-10.1 [facility] Comment on above: Result Comment: PT L EFT Performed By: #### L 100.0100, L500.2500 ####[facility] [address] [place], [address] CL Normal 98-107 [facility] Comment on above: Result Comment: PT L EFT Performed By: #### L 100.0100, L500.2500 ####[facility] [address] [place], [address] CO2 Normal 21.0-32.0 [facility] Comment on above: Result Comment: PT L EFT Performed By: #### L 100.0100, L500.2500 ####[facility] [address] [place], [address] CREAT,SERUM Normal 0.70-1.30 [facility] Comment on above: Result Comment: PT L EFT Performed By: #### L 100.0100, L500.2500 ####[facility] [address] [place], [address] EST GFR Normal >60 [facility] Comment on above: Result Comment: PT L EFT Performed By: #### L 100.0100, L500.2500 ####[facility] [address] [place], [address] EST GFR - AA Normal >60 [facility] Comment on above: Result Comment: PT L EFT Performed By: #### L 100.0100, L500.2500 ####[facility] [address] [place], [address] GAP Normal 5-15 [facility] Comment on above: Result Comment: PT L EFT Performed By: #### L 100.0100, L500.2500 ####[facility] [address] [place], [address] GLU Normal 74-106 [facility] Comment on above: Result Comment: PT L EFT Performed By: #### L 100.0100, L500.2500 ####[facility] [address] [place], [address] Potassium Normal 3.5-5.1 [facility] Comment on above: Result Comment: PT L EFT Performed By: #### L 100.0100, L500.2500 ####[facility] [address] [place], [address] Basic Metabolic Profile (BMP) Normal 136-145 [facility] Comment on above: Result Comment: PT L EFT Performed By: #### L 100.0100, L500.2500 ####[facility] [address] [place], [address] CBC W/Diff, Automatedon 10-3 0-2023 Absolute Neut Normal 2.0-7.7 [facility] Comment on above: Result Comment: PT L EFT Performed By: #### L 100.0100, L500.2500 ####[facility] [address] [place], [address] HCT Normal 40-54 [facility] Comment on above: Result Comment: PT L EFT Performed By: #### L 100.0100, L500.2500 ####[facility] [address] [place], [address] HGB Normal 13.0-16.5 [facility] Comment on above: Result Comment: PT L EFT Performed By: #### L 100.0100, L500.2500 ####[facility] [address] [place], [address] MCH Normal 27.0-32.0 [facility] Comment on above: Result Comment: PT L EFT Performed By: #### L 100.0100, L500.2500 ####[facility] [address] [place], [address] MCHC Normal 32-36 [facility] Comment on above: Result Comment: PT L EFT Performed By: #### L 100.0100, L500.2500 ####[facility] [address] [place], [address] MCV Normal 80-94 [facility] Comment on above: Result Comment: PT L EFT Performed By: #### L 100.0100, L500.2500 ####[facility] [address] [place], [address] NEUT% Normal 47-70 [facility] Comment on above: Result Comment: PT L EFT Performed By: #### L 100.0100, L500.2500 ####[facility] [address] [place], [address] PLT Normal 150-450 [facility] Comment on above: Result Comment: PT L EFT Performed By: #### L 100.0100, L500.2500 ####[facility] [address] [place], [address] RBC Normal 4.6-6.2 [facility] Comment on above: Result Comment: PT L EFT Performed By: #### L 100.0100, L500.2500 ####[facility] [address] [place], [address] RDW CV Normal 11.6-14.6 [facility] Comment on above: Result Comment: PT L EFT Performed By: #### L 100.0100, L500.2500 ####[facility] [address] [place], [address] RDW SD Normal 35.1-43.9 [facility] Comment on above: Result Comment: PT L EFT Performed By: #### L 100.0100, L500.2500 ####[facility] [address] [place], [address] WBC Normal 4.4-11.0 [facility] Comment on above: Result Comment: PT L EFT Performed By: #### L 100.0100, L500.2500 ####[facility] [address] [place], [address] Extremity Upper without Cont raon 09-18-2024 Extremity Upper without Contra [facility] Imaging Services [address] [place] [address] Extremity Upper without Contra MR#: [id number] Acct: [id number] Name: EVELIA NAILS Jr. Rep #: [id number] : 1940 M 83 From: Jorge Durbin MD PCP: Dr. Laila Ramos MD Status: REG CLI Study: Extremity Upper without Contra Date of Exam: Exam# [id number] Ordering Dr: [place] [id number] STUDY: CT LEFT SHOULDER REASON FOR EXAM: [...] Laila Ramos MD; Dr. 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 Normal [facility] Basophil percentageOrdered B y: Tyler Hairston on 03-06-2024 Creatinine [Mass/Vol] 1.2 mg/dL 0.70-1.30 [facility] No Panel InformationOrdered By: Tyler Hairston on 03-06-2024 Bedside Estimated GFR (eGFR) > 60.0000 mL/min >60 [facility] No Panel Informationon 11-17 ERV BOX (L) 0.87 L [facility] GDI62-79% PRE (L/S) 1.46 L/S [facility] FEV1 PRE (L) 2.76 L [facility] FEV1/FVC PRE (%) 61 % [facility] FRC Box (L) 4.06 L [facility] FVC PRE (L) 4.57 L [facility] IC BOX (L) 3.42 L [facility] PEF PRE (L/S) 5.51 L/S [facility] RV Box (L) 3.24 L [facility] RV/TLC Box (%) 43 % [facility] TLC Box (L) 7.45 L [facility] VC (L) BOX 4.51 L [facility] ECG COMPLETEon 06-25-2022 Atrial Rate 63 BPM [facility] Calculated P [place] 14 degrees [facility] Calculated R [place] -56 degrees [facility] Calculated T [place] 42 degrees [facility] P-R Interval 176 ms [facility] QRS Duration 84 ms [facility] QT Interval 414 ms [facility] QTC Calculation (Bazett) 423 ms [facility] Ventricular Rate 63 BPM [facility] 2019 CORONAVIRUSon 2 SARS-CoV-2 (COVID-19) RNA SRI+probe Ql (Resp) SARS-CoV-2 (Agent of COVID-19) Not Detected by RT-PCR or equivalent method. Not Detected [facility] Comprehensive metabolic 2000 panelon 06-23-2022 Albumin [Mass/Vol] 4.0 g/dL 3.9 - 4.9 g/dL [facility] ALP [Catalytic activity/Vol] 86 U/L 38 - 113 U/L [facility] ALT [Catalytic activity/Vol] 16 U/L 10 - 54 U/L [facility] Anion gap [Moles/Vol] 11 mmol/L 9 - 18 mmol/L [facility] AST [Catalytic activity/Vol] 20 U/L 14 - 40 U/L [facility] Bilirubin [Mass/Vol] 0.5 mg/dL 0.2 - 1 .3 mg/dL [facility] Calcium [Mass/Vol] 9.3 mg/dL 8.5 - 10. 2 mg/dL [facility] Chloride [Moles/Vol] 105 mmol/L 97 - 10 5 mmol/L [facility] CO2 [Moles/Vol] 24 mmol/L 22 - 30 mmol/L [facility] Creatinine [Mass/Vol] 1.29 mg/dL High 0.73 - 1.22 mg/dL [facility] Estimated Glomerular Filtration Rate 56 mL/min/1.73m Low >=60 mL/min/1.73m [facility] Glucose [Mass/Vol] 103 mg/dL High 74 - 99 mg/dL [facility] Potassium [Moles/Vol] 4.4 mmol/L 3.7 - 5.1 mmol/L [facility] Protein [Mass/Vol] 7.2 g/dL 6.3 - 8.0 g/dL [facility] Sodium [Moles/Vol] 140 mmol/L 136 - 144 mmol/L [facility] Urea nitrogen [Mass/Vol] 21 mg/dL 9 - 24 mg/dL [facility] T3 FREE [facility] 06-23-2022 Free T3 [Mass/Vol] 1.8 pg/mL Low 2.3 - 4.1 pg/mL [facility] T4 FREE/FREE THYROXon 2021 Free T4 [Mass/Vol] 1.2 ng/dL 0.9 - 1.7 ng/dL [facility] TSH [facility] 06-23-2022 TSH Qn 2.750 m[IU]/L 0.270 - 4.200 mIU/L [facility] CBC panel Auto (Bld)on 06-22 Erythrocyte distribution width (RBC) [Ratio] 16.2 % High 11.5 - 15.0 % [facility] Hematocrit (Bld) [Volume fraction] 41.9 % 39.0 - 51.0 % [facility] Hemoglobin (Bld) [Mass/Vol] 13.3 g/dL 13.0 - 17.0 g/dL [facility] MCH (RBC) [Entitic mass] 28.4 pg 26.0 - 34.0 pg [facility] MCHC (RBC) [Mass/Vol] 31.7 g/dL 30.5 - 36.0 g/dL [facility] MCV (RBC) [Entitic vol] 89.5 fL 80.0 - 100.0 fL [facility] Nucleated RBC (Bld) [#/Vol] <0.01 k/uL [facility] Platelet mean volume (Bld) [Entitic vol] 11.5 fL 9.0 - 12.7 fL [facility] Platelets (Bld) [#/Vol] 136 10*3/uL Low 150 - 400 k/uL [facility] RBC (Bld) [#/Vol] 4.68 10*6/uL 4.20 - 6.0 0 m/uL [facility] WBC (Bld) [#/Vol] 7.42 10*3/uL 3.70 - 11. 00 k/uL [facility] XR CHEST 2V FRONTAL/LATon [facility] XR Chest PA and Lateralon IMPRESSION: Left basilar atelectasis. Scuba Diving Teacher: [facility] Transcribe Date/Time: Jun 22 2022 2:42P [...] the spine. [id number] SE_DIVISION OF RADIOLOGY Provider, [facility] - 06/22/2022 * * *Final Report* [...] the spine. IMPRESSION IMPRESSION: Left basilar atelectasis. Scuba Diving Teacher: [facility] Transcribe Date/Time: Jun 22 2022 2:42P Dictated by : SHARMAINE MORALES MD This examination was interpreted and the report reviewed and electronically signed by: SHARMAINE MORALES MD on Jun 22 2022 2:43PM [facility] Radiology Study observation (narrative) [facility] XR Chest PA and LateralOrder ed By: Ccf Provider on 06-22-2022 [facility] HGB A1Con 02-05-2022 Average glucose Estimated from glycated hemoglobin (Bld) [Mass/Vol] 105 mg/dL [facility] HbA1c (Bld) [Mass fraction] 5.3 % 4.3 - 5.6 % [facility] XR Chest PA and Lateralon IMPRESSION: No acute radiographic abnormality. Scuba Diving Teacher: [facility] Transcribe Date/Time: Jul 17 2021 11:47A Dictated by : INDIGO BELLO MD This examination was interpreted and the report reviewed and electronically signed by: INDIGO BELLO MD on Jul 17 2021 11:47AM [facility] DIVISION OF RADIOLOGY * * *Final Report* [...] Unremarkable. IMPRESSION IMPRESSION: No acute radiographic abnormality. Scuba Diving Teacher: [facility] Transcribe Date/Time: Jul 17 2021 11:47A Dictated by : INDIGO BELLO MD This examination was interpreted and the report reviewed and electronically signed by: INDIGO BELLO MD on Jul 17 2021 11:47AM EST [facility] Radiology Study observation (narrative) [facility] XR Chest PA and LateralOrder ed By: Ccf Provider on 07-17-2021 [facility] Vital Signs Date Time Vital Sign Value Performing Clinician Eula huston 04-10-2025 15:09-0400 Body mass index (BMI) [Ratio] 27.93 kg/m2 Laila Ramos MD Work Phone: [facility] 04-10-2025 15:09-0400 Body weight 92.5 kg Laila Ramos MD Work Phone: [facility] 04-10-2025 15:09-0400 Diastolic blood pressure 58 mm[Hg] Laila Ramos MD Work Phone: [facility] 04-10-2025 15:09-0400 Heart rate 64 /min Laila Ramos MD Work Phone: [facility] 04-10-2025 15:09-0400 Respiratory rate 16 /min Laila Ramos MD Work Phone: [facility] 04-10-2025 15:09-0400 Systolic blood pressure 116 mm[Hg] Laila Ramos MD Work Phone: [facility] 11-20-2024 10:42-0500 Body height 182 cm Laila Ramos MD Work Phone: [facility] 11-20-2024 10:42-0500 Body mass index (BMI) [Ratio] 28.08 kg/m2 Laila Ramos MD Work Phone: [facility] 11-20-2024 10:42-0500 Body weight 93 kg Laila Ramos MD Work Phone: [facility] 11-20-2024 10:42-0500 Diastolic blood pressure 70 mm[Hg] Laila Ramos MD Work Phone: [facility] 11-20-2024 10:42-0500 Heart rate 69 /min Laila Ramos MD Work Phone: [facility] 11-20-2024 10:42-0500 Respiratory rate 16 /min Laila Ramos MD Work Phone: [facility] 11-20-2024 10:42-0500 SaO2% (BldA) [Mass fraction] 96 % Laila Ramos MD Work Phone: [facility] 11-20-2024 10:42-0500 Systolic blood pressure 111 mm[Hg] Laila Ramos MD Work Phone: [facility] 11-02-2024 09:14-0500 Body mass index (BMI) [Ratio] 28.46 kg/m2 Em Romero INFECTION CONTROL MANAGER.STAVE CUTTING SUPERVISOR Work Phone: [facility] 11-02-2024 09:14-0500 Body weight 93.2 kg Em Romero INFECTION CONTROL MANAGER.STAVE CUTTING SUPERVISOR Work Phone: [facility] 11-02-2024 09:14-0500 Diastolic blood pressure 61 mm[Hg] Em Nick INFECTION CONTROL MANAGER.STAVE CUTTING SUPERVISOR Work Phone: [facility] 11-02-2024 09:14-0500 Heart rate 66 /min Em Bauers INFECTION CONTROL MANAGER.STAVE CUTTING SUPERVISOR Work Phone: [facility] 11-02-2024 09:14-0500 Respiratory rate 16 /min Em Romero INFECTION CONTROL MANAGER.STAVE CUTTING SUPERVISOR Work Phone: [facility] 11-02-2024 09:14-0500 Systolic blood pressure 100 mm[Hg] Em Romero INFECTION CONTROL MANAGER.STAVE CUTTING SUPERVISOR Work Phone: [facility] 10-28-2024 10:35-0500 Heart rate 88 /min QUINTIN QUESADAATZLE DO [facility] 10-28-2024 10:09-0500 Blood Pressure Cuff Size QUINTIN QUESADAATZLE DO [facility] 10-28-2024 10:09-0500 Blood Pressure Location QUINTIN SANGITAATZLE DO [facility] 10-28-2024 10:09-0500 Blood Pressure Method QUINTIN QUESADAATZLE DO [facility] 10-28-2024 10:09-0500 Body temperature 98.42 [degF] QUINTIN QUESADAATZLE DO [facility] 10-28-2024 10:09-0500 Diastolic Blood Pressure Non-Invasive 62 mm[Hg] QUINTIN QUESADAATZLE DO [employer] 10-28-2024 10:09-0500 Heart rate 88 /min QUINTIN SANGITAATZLE DO [employer] 10-28-2024 10:09-0500 Reason For Taking VItal Signs QUINTIN SANGITAATZLE DO [facility] 10-28-2024 10:09-0500 Systolic Blood Pressure Non-Invasive 144 mm[Hg] QUINTIN QUESADAATZLE DO [facility] 10-28-2024 00:37-0500 Blood Pressure Cuff Size QUINTIN QUESADAATZLE DO [facility] 10-28-2024 00:37-0500 Blood Pressure Location QUINTIN QUESADAATZLE DO [facility] 10-28-2024 00:37-0500 Blood Pressure Method QUINTIN QUESADAATZLE DO Justin Christoval 10-28-2024 00:37-0500 Body temperature 97.7 [degF] QUINTIN QUESADAATZLE DO Justin Christoval 10-28-2024 00:37-0500 Diastolic Blood Pressure Non-Invasive 80 mm[Hg] QUINTIN QUESADAATZLE DO [facility] 10-28-2024 00:37-0500 Heart rate 61 /min QUINTIN QUESADAATZLE DO [facility] 10-28-2024 00:37-0500 Reason For Taking VItal Signs QUINTIN QUESADAATZLE DO Justin Christoval 10-28-2024 00:37-0500 Respiratory rate 18 /min QUINTIN QUESADAATZLE DO Justin Christoval 10-28-2024 00:37-0500 Systolic Blood Pressure Non-Invasive 124 mm[Hg] QUINTIN QUESADAATZLE DO Justin Christ[facility] 10-27-2024 17:17-0500 Heart rate 66 /min QUINTIN QUESADAATZLE DO Justin Christoval 10-27-2024 17:15-0500 Blood Pressure Cuff Size QUINTIN QUESADAATZLE DO Justin Christoval 10-27-2024 17:15-0500 Blood Pressure Location QUINTIN QUESADAATZLE DO Justin Christoval 10-27-2024 17:15-0500 Blood Pressure Method QUINTIN QUESADAATZLE DO Justin Christoval 10-27-2024 17:15-0500 Diastolic Blood Pressure Non-Invasive 68 mm[Hg] QUINTIN QUESADAATZLE DO [facility] Christ[facility] 10-27-2024 17:15-0500 Heart rate 66 /min QUINTIN QUESADAATZLE DO Justin Christoval 10-27-2024 17:15-0500 Reason For Taking VItal Signs QUINTIN QUESADAATZNEFTALY DO Justin Christ[facility] 10-27-2024 17:15-0500 Respiratory rate 18 /min QUINTIN QUESADAATZLE DO Justin Christ[facility] 10-27-2024 17:15-0500 Systolic Blood Pressure Non-Invasive 131 mm[Hg] QUINTIN QUESADAATZLE DO [facility] 10-27-2024 08:06-0500 Body temperature 97.7 [degF] QUINTIN QUESADAATZLE DO [facility] 10-27-2024 08:06-0500 Respiratory rate 16 /min QUINTIN QUESADAATZLE DO [facility] 10-27-2024 02:02-0500 Body temperature 97.34 [degF] QUINTIN SANGITAATZLE DO [facility] 10-27-2024 02:02-0500 Heart rate 62 /min QUINTIN SANGITAATZLE DO [facility] 10-26-2024 20:55-0500 Body temperature 97.88 [degF] QUINTIN QUESADAATZLE DO [facility] 10-26-2024 08:07-0500 Body temperature 97.7 [degF] QUINTIN SANGITAATZLE DO [facility] 10-17-2024 18:07-0500 Body weight 92.8 kg [facility] 10-17-2024 17:21-0500 Body height 180 cm QUINTIN SCHEATZLE DO [facility] 10-17-2024 17:21-0500 Body weight 94 kg QUINTIN SCHEATZLE [facility] 10-17-2024 17:21-0500 Body weight 29.01 kg/m2 QUINTIN SCHEATZLE DO [facility] 10-16-2024 16:16-0500 Body height 180 cm QUINTIN SCHEATZLE DO [facility] 10-16-2024 16:16-0500 Body weight 94 kg QUINTIN SCHEATZLE DO [facility] 10-16-2024 16:16-0500 Body weight 29.01 kg/m2 QUINTIN SCHEATZLE DO [facility] 10-04-2024 13:48-0500 Body mass index (BMI) [Ratio] 29.13 kg/m2 Lili Hawk MD Work Phone: [facility] 10-04-2024 13:48-0500 Body weight 95.4 kg Lili Hawk MD Work Phone: [facility] 10-04-2024 13:48-0500 SaO2% (BldA) [Mass fraction] 97 % Lili Hawk MD Work Phone: [facility] 09-25-2024 14:17-0400 Body height 181 cm Chloé Penar INFECTION CONTROL MANAGER.LIVESTOCK SPECULATOR Work Phone: [facility] 09-25-2024 14:17-0400 Body mass index (BMI) [Ratio] 29.16 kg/m2 Chloé Jami INFECTION CONTROL MANAGER.LIVESTOCK SPECULATOR Work Phone: [facility] 09-25-2024 14:17-0400 Body weight 95.5 kg Chloé Jami INFECTION CONTROL MANAGER.LIVESTOCK SPECULATOR Work Phone: [facility] 09-25-2024 14:17-0400 Diastolic blood pressure 68 mm[Hg] Chloé Jami INFECTION CONTROL MANAGER.LIVESTOCK SPECULATOR Work Phone: [facility] 09-25-2024 14:17-0400 Heart rate 69 /min Chloé Jami INFECTION CONTROL MANAGER.LIVESTOCK SPECULATOR Work Phone: [facility] 09-25-2024 14:17-0400 SaO2% (BldA) [Mass fraction] 97 % Chloé Jami INFECTION CONTROL MANAGER.LIVESTOCK SPECULATOR Work Phone: [facility] 09-25-2024 14:17-0400 Systolic blood pressure 118 mm[Hg] Chloé Jami INFECTION CONTROL MANAGER.LIVESTOCK SPECULATOR Work Phone: [facility] 07-03-2024 16:39-0400 Body mass index (BMI) [Ratio] 28.89 kg/m2 Laila Ramos MD Work Phone: [facility] 07-03-2024 16:39-0400 Body temperature 98.29 [degF] Laila Ramos MD Work Phone: [facility] 07-03-2024 16:39-0400 Body weight 96.62 kg Laila Ramos MD Work Phone: [facility] 07-03-2024 16:39-0400 Diastolic blood pressure 62 mm[Hg] Laila Ramos MD Work Phone: [facility] 07-03-2024 16:39-0400 Heart rate 70 /min Laila Ramos MD Work Phone: [facility] 07-03-2024 16:39-0400 Respiratory rate 16 /min Laila Ramos MD Work Phone: [facility] 07-03-2024 16:39-0400 SaO2% (BldA) [Mass fraction] 97 % Laila Ramos MD Work Phone: [facility] 07-03-2024 16:39-0400 Systolic blood pressure 120 mm[Hg] Laila Ramos MD Work Phone: [facility] 06-15-2024 14:07-0400 Body mass index (BMI) [Ratio] 28.89 kg/m2 Laila Ramos MD Work Phone: [facility] 06-15-2024 14:07-0400 Body weight 96.62 kg Laila Ramos MD Work Phone: [facility] 06-15-2024 14:07-0400 Diastolic blood pressure 72 mm[Hg] Laila Ramos MD Work Phone: [facility] 06-15-2024 14:07-0400 Heart rate 76 /min Laila Ramos MD Work Phone: [facility] 06-15-2024 14:07-0400 Respiratory rate 16 /min Laila Ramos MD Work Phone: [facility] 06-15-2024 14:07-0400 Systolic blood pressure 126 mm[Hg] Laila Ramos MD Work Phone: [facility] 02-17-2024 14:06-0400 Body weight 100.25 kg Em Romero INFECTION CONTROL MANAGER.STAVE CUTTING SUPERVISOR Work Phone: [facility] 02-17-2024 14:06-0400 Diastolic blood pressure 66 mm[Hg] Em Romero INFECTION CONTROL MANAGER.STAVE CUTTING SUPERVISOR Work Phone: [facility] 02-17-2024 14:06-0400 Heart rate 64 /min Em Romero INFECTION CONTROL MANAGER.STAVE CUTTING SUPERVISOR Work Phone: [facility] 02-17-2024 14:06-0400 Respiratory rate 16 /min Em Romero INFECTION CONTROL MANAGER.STAVE CUTTING SUPERVISOR Work Phone: [facility] 02-17-2024 14:06-0400 Systolic blood pressure 112 mm[Hg] Em Romero INFECTION CONTROL MANAGER.STAVE CUTTING SUPERVISOR Work Phone: [facility] 07-12-2023 13:05-0400 Body height 182.9 cm Laila Ramos MD Work Phone: [facility] 07-12-2023 13:05-0400 Body weight 97.98 kg Laila Ramos MD Work Phone: [facility] 07-12-2023 13:05-0400 Diastolic blood pressure 70 mm[Hg] Laila Ramos MD Work Phone: [facility] 07-12-2023 13:05-0400 Heart rate 70 /min Laila Ramos MD Work Phone: [facility] 07-12-2023 13:05-0400 Respiratory rate 16 /min Laila Ramos MD Work Phone: [facility] 07-12-2023 13:05-0400 Systolic blood pressure 116 mm[Hg] Laila Ramos MD Work Phone: [facility] 01-22-2023 08:31-0500 Body temperature 97.81 [degF] Laila Ramos MD Work Phone: [facility] 01-22-2023 08:31-0500 Body weight 96.16 kg Laila Ramos MD Work Phone: [facility] 01-22-2023 08:31-0500 Diastolic blood pressure 68 mm[Hg] Laila Ramos MD Work Phone: [facility] 01-22-2023 08:31-0500 Heart rate 68 /min Laila Ramos MD Work Phone: [facility] 01-22-2023 08:31-0500 Respiratory rate 18 /min Laila Ramos MD Work Phone: [facility] 01-22-2023 08:31-0500 SaO2% (BldA) [Mass fraction] 96 % Laila Ramos MD Work Phone: [facility] 01-22-2023 08:31-0500 Systolic blood pressure 118 mm[Hg] Laila Ramos MD Work Phone: [facility] 11-17-2022 11:23-0500 Body height 179.1 cm Pul Wstr Work Phone: [facility] 11-17-2022 11:23-0500 Body weight 96.62 kg Pulm Wstr Work Phone: [facility] 11-02-2022 10:18-0500 Body weight 96.62 kg Laila Ramos MD Work Phone: [facility] 11-02-2022 10:18-0500 Diastolic blood pressure 62 mm[Hg] Laila Ramos MD Work Phone: [facility] 11-02-2022 10:18-0500 Heart rate 62 /min Laila Ramos MD Work Phone: [facility] 11-02-2022 10:18-0500 SaO2% (BldA) [Mass fraction] 96 % Laila Ramos MD Work Phone: [facility] 11-02-2022 10:18-0500 Systolic blood pressure 108 mm[Hg] Laila Ramos MD Work Phone: [facility] 07-03-2022 09:28-0400 Body weight 95.71 kg Em Romero INFECTION CONTROL MANAGER.STAVE CUTTING SUPERVISOR Work Phone: [facility] 07-03-2022 09:28-0400 Diastolic blood pressure 62 mm[Hg] Em Romero INFECTION CONTROL MANAGER.STAVE CUTTING SUPERVISOR Work Phone: [facility] 07-03-2022 09:28-0400 Heart rate 60 /min Em Romero INFECTION CONTROL MANAGER.STAVE CUTTING SUPERVISOR Work Phone: [facility] 07-03-2022 09:28-0400 Respiratory rate 16 /min Em Romero INFECTION CONTROL MANAGER.STAVE CUTTING SUPERVISOR Work Phone: [facility] 07-03-2022 09:28-0400 SaO2% (BldA) [Mass fraction] 95 % Em Romero INFECTION CONTROL MANAGER.STAVE CUTTING SUPERVISOR Work Phone: [facility] 07-03-2022 09:28-0400 Systolic blood pressure 108 mm[Hg] Em Romero INFECTION CONTROL MANAGER.STAVE CUTTING SUPERVISOR Work Phone: [facility] 06-30-2022 08:27-0400 Body temperature 97.2 [degF] Em Romero INFECTION CONTROL MANAGER.STAVE CUTTING SUPERVISOR Work Phone: [facility] 06-30-2022 08:27-0400 Body weight 94.8 kg Em Romero INFECTION CONTROL MANAGER.STAVE CUTTING SUPERVISOR Work Phone: [facility] 06-30-2022 08:27-0400 Diastolic blood pressure 64 mm[Hg] Em Romero INFECTION CONTROL MANAGER.STAVE CUTTING SUPERVISOR Work Phone: [facility] 06-30-2022 08:27-0400 Heart rate 59 /min Em Romero INFECTION CONTROL MANAGER.STAVE CUTTING SUPERVISOR Work Phone: [facility] 06-30-2022 08:27-0400 Respiratory rate 16 /min Em Romero INFECTION CONTROL MANAGER.STAVE CUTTING SUPERVISOR Work Phone: [facility] 06-30-2022 08:27-0400 SaO2% (BldA) [Mass fraction] 95 % Em Romero INFECTION CONTROL MANAGER.STAVE CUTTING SUPERVISOR Work Phone: [facility] 06-30-2022 08:27-0400 Systolic blood pressure 112 mm[Hg] Em Romero INFECTION CONTROL MANAGER.STAVE CUTTING SUPERVISOR Work Phone: [facility] 06-22-2022 13:05-0400 Body weight 94.35 kg Laila Ramos MD Work Phone: [facility] 06-22-2022 13:05-0400 Diastolic blood pressure 66 mm[Hg] Laila Ramos MD Work Phone: [facility] 06-22-2022 13:05-0400 Heart rate 67 /min Laila Ramos MD Work Phone: [facility] 06-22-2022 13:05-0400 SaO2% (BldA) [Mass fraction] 95 % Laila Ramos MD Work Phone: [facility] 06-22-2022 13:05-0400 Systolic blood pressure 112 mm[Hg] Laila Ramos MD Work Phone: [facility] 01-27-2022 14:45-0500 Body weight 96.62 kg Laila Ramos MD Work Phone: [facility] 01-27-2022 14:45-0500 Diastolic blood pressure 62 mm[Hg] Laila Ramos MD Work Phone: [facility] 01-27-2022 14:45-0500 Heart rate 84 /min Laila Ramos MD Work Phone: [facility] 01-27-2022 14:45-0500 Systolic blood pressure 110 mm[Hg] Laila Ramos MD Work Phone: [facility] Encounters Encounter Date Encounter Type Care Provider Facility Start: 10-05-2025 End: 10-05-2025 ambulatory SELF Facility:[facility] Start: 10-04-2025 End: 10-04-2025 ambulatory LAILA RAMOS Facility:[facility] Start: 08-03-2025 End: 08-03-[address] Laila Ramos MD Work Phone: -Radiology [facility] Start: 08-03-2025 End: 08-03-2025 Patient encounter procedure Chad Mcnamara PA -Radiology [facility] Work Phone: Start: 08-03-2025 End: 08-03-2025 ambulatory Chad Mcnamara Facility:[facility] Start: 07-25-2025 End: 07-25-2025 ambulatory LAILA RAMOS Facility:[facility] Start: 04-10-2025 End: 04-10-2025 ambulatory LAILA RAMOS Facility:[facility] Start: 04-10-2025 End: 04-10-2025 Office outpatient visit 25 minutes Laila Ramos MD Work Phone: [facility] Comment on above: Essential hypertensi on (Primary [...] Start: 04-10-2025 End: 04-10-2025 ambulatory LAILA RAMOS Facility:[facility] Start: 02-13-2025 End: 02-14-2025 Refill Laila Ramos MD Work Phone: [address] [place] [address] Comment on above: Refill Request Start: 12-15-2024 End: 12-15-2024 Refill Laila Ramos MD Work Phone: [facility] [place] Comment on above: Refill Request Start: 11-20-2024 End: 11-20-2024 ambulatory LAILA RAMOS Facility:[facility] Start: 11-20-2024 End: 11-20-2024 ambulatory LAILA RAMOS Facility:[facility] Start: 11-20-2024 End: 11-20-2024 Patient encounter procedure Laila Ramos MD Work Phone: [facility] Comment on above: Medicare annual well ness [...] encounter Laila Ramos MD Work Phone: Internal [facility] Comment on above: [facility] calling for v erbal order (PT) Start: 11-02-2024 End: 11-02-2024 ambulatory EM ROMERO Facility:[facility] Start: 11-02-2024 End: 11-02-2024 Office outpatient visit 25 minutes Em Romero INFECTION CONTROL MANAGER.STAVE CUTTING SUPERVISOR Work Phone: [facility] Comment on above: Essential hypertensi on (Primary Dx); Arthritis of left shoulder region; S/P shoulder replacement, left; Crohn's disease of both small and large intestine without complication (HCC); Pure hypercholesterolemia; Chronic ITP (idiopathic thrombocytopenia) (HCC); Vitamin D deficiency; H/O urinary retention Start: 10-31-2024 End: 11-02-2024 Telephone encounter Laila Ramos MD Work Phone: [facility] Comment on above: faxing list of medic ations patient was taking at [facility]hab Start: 10-30-2024 End: 11-14-[address] LAILA RAMOS MD Facility:[facility] Start: 10-25-2024 ambulatory Laila Ramos Facilit y:[facility] Start: 10-25-2024 End: 10-28-2024 Telephone encounter Laila Ramos MD Work Phone: [facility] Comment on above: Home Health Orders Start: 10-17-2024 End: 10-28-2024 Evaluation and management of inpatient QUINTIN KAY DO Justin Leon Start: 10-12-2024 End: 10-17-2024 ambulatory Chad Castrejon Facility:[facility] Start: 10-04-2024 End: 10-04-2024 Patient encounter procedure Lili Hawk MD Work Phone: Neurology Comment on above: Essential tremor (Pr imary Dx) Start: 10-02-2024 End: 10-02-2024 Telephone encounter Chloé Farrell APRN.LIVESTOCK SPECULATOR Work Phone: [facility] Comment on above: Pre-Op Question Start: 09-26-2024 ambulatory Chloé Farrell Facility:[facility] Start: 09-25-2024 End: 09-25-2024 Patient encounter procedure Chloé Farrell APRN.LIVESTOCK SPECULATOR Work Phone: [facility] Comment on above: Arthritis of left sh oulder region (Primary Dx); Chronic left shoulder pain; Pre-op evaluation; Essential hypertension; Encounter for immunization; Parkinson's disease, unspecified whether dyskinesia present, unspecified whether manifestations fluctuate ([facility]); Pure hypercholesterolemia; PAF (paroxysmal atrial fibrillation) ([facility]); Chronic bronchitis, unspecified chronic bronchitis type ([facility]); IFG (impaired fasting glucose); Chronic ITP (idiopathic thrombocytopenia) ([facility]); Mild depression; Encounter for therapeutic drug monitoring; Vitamin D deficiency Start: 09-25-2024 End: 09-25-2024 Preprocedural examination done Chloé Farrell APRN.LIVESTOCK SPECULATOR Work Phone: [facility] Start: 09-21-2024 End: 09-21-2024 ambulatory [facility] Facility:[facility] Start: 09-18-2024 End: 09-18-2024 [facility] Facility:[facility] Start: 07-03-2024 End: 07-03-2024 Office outpatient visit 25 minutes Laila Ramos MD Work Phone: [facility] Comment on above: Essential hypertensi on (Primary Dx); Vitamin D deficiency; IFG (impaired fasting glucose); Hypomagnesemia; Mixed hyperlipidemia; Benign prostatic hyperplasia with nocturia; Encounter for long-term current use of medication Start: 06-15-2024 End: 06-15-2024 Office outpatient visit 25 minutes Laial Ramos MD Work Phone: [facility] Comment on above: Anterior dislocation of left shoulder, subsequent encounter (Primary Dx); Essential hypertension; PAF (paroxysmal atrial fibrillation) (HCC) Start: 05-09-2024 Refill Laila choi MD Work Phone: [facility] Comment on above: Refill Request Start: 04-11-2024 Refill Chloé Farrell APRN.LIVESTOCK SPECULATOR Work Phone: [facility] Comment on above: Refill Request Start: 03-29-2024 Refill Laila choi MD Work Phone: [facility] Comment on above: Refill Request Start: 03-09-2024 Refill Laila choi MD Work Phone: Family [facility] Comment on above: Refill Request Start: 03-06-2024 End: 03-06-2024 ambulatory [facility] Work Phone: Start: 03-06-2024 End: 03-06-2024 Patient encounter procedure [facility], [facility] Work Phone: Start: 02-17-2024 End: 02-17-2024 Office outpatient visit 25 minutes Em Romero APRN.CNS Work Phone: [facility] Comment on above: Crohn's disease of [facility] small and large intestine without complication (HCC) (Primary Dx); Encounter for immunization; Parkinson's disease, unspecified whether dyskinesia present, unspecified whether manifestations fluctuate (HCC); Chronic ITP (idiopathic thrombocytopenia) (HCC); Chronic bronchitis, unspecified chronic bronchitis type (HCC); Major depressive disorder, single episode, mild (HCC); Tremor of both hands; Bilateral hand pain Start: 01-10-2024 Refill Laila choi MD Work Phone: [facility] Comment on above: Refill Request Start: 2023 Refill Chloé Farrell APRN.LIVESTOCK SPECULATOR Work Phone: [facility] Comment on above: Med Change Request Start: 11-01-2023 Telephone encounter Laila ayala MD Work Phone: [facility] Comment on above: Refill Request Patient Question Start: 07-27-2023 Refill Laila choi MD Work Phone: [facility] Comment on above: Refill Request Start: 07-13-2023 Telephone encounter Laila ayala MD Work Phone: [facility] Comment on above: Patient Update Start: 07-12-2023 End: 07-12-2023 Office outpatient visit 40 minutes Laila Ramos MD Work Phone: [facility] Comment on above: Essential hypertensi on (Primary Dx); Benign prostatic hyperplasia with nocturia; Vitamin D deficiency; Mixed hyperlipidemia; IFG (impaired fasting glucose); Bilateral impacted cerumen; Parkinson disease ([facility]); Essential tremor; Chronic ITP (idiopathic thrombocytopenia) ([facility]); Crohn's disease of both small and large intestine without complication ([facility]); Major depressive disorder, single episode, mild ([facility]); Encounter for long-term current use of medication Start: 06-17-2023 Refill Laila choi MD Work Phone: [address] [place] [address] Comment on above: Refill Request Start: 04-06-2023 Refill Laila choi MD Work Phone: [facility] Comment on above: Refill Request Start: 01-22-2023 End: 01-22-2023 Office outpatient visit 25 minutes Laila Ramos MD Work Phone: [facility] Comment on above: Esophageal dysphagia (Primary Dx); Chronic cough; Chronic bronchitis, unspecified chronic bronchitis type ([facility]); Essential hypertension Start: 01-20-2023 Telephone encounter Chloé loco APRN.CNP Work Phone: [facility] Comment on above: Results Start: 01-11-2023 Refill Liala choi MD Work Phone: [facility] Comment on above: Refill Request Start: 12-31-2022 Refill Laila choi MD Work Phone: [facility] Comment on above: Refill Request Start: 11-17-2022 End: 11-17-2022 ambulatory [facility] Work Phone: [facility] Comment on above: Spirometry Start: 11-17-2022 End: 11-17-2022 Patient encounter procedure [facility] Work Phone: [facility] Start: 11-02-2022 End: 11-02-2022 Office outpatient [...] Laila ayala MD Work Phone: [facility] Comment on above: Forms Start: 10-12-2022 Refill Laila choi MD Work Phone: [facility] Comment on above: Refill Request Start: 07-29-2022 End: 07-29-2022 ambulatory [facility] Work Phone: Start: 07-29-2022 End: 07-29-2022 Patient encounter procedure [facility]Rad[facility], [facility] Start: 07-03-2022 Telephone encounter Laila ayala MD Work Phone: [facility] Comment on above: preop ok Start: 07-03-2022 End: 07-03-2022 Patient encounter procedure Em Romero APRN.STAVE CUTTING SUPERVISOR Work Phone: [facility] Comment on above: Preop exam for inter nal medicine (Primary Dx) Start: 07-03-2022 End: 07-03-2022 Patient encounter status mE Romero APRN.STAVE CUTTING SUPERVISOR Work Phone: [facility] Start: 07-01-2022 Telephone encounter Laila ayala MD Work Phone: [facility] Comment on above: fax request Start: 06-30-2022 End: 06-30-2022 Patient encounter procedure Em Romero APRN.STAVE CUTTING SUPERVISOR Work Phone: [facility] Comment on above: Preop exam for inter nal medicine (Primary Dx); Encounter for immunization; Need for shingles vaccine; Moderate persistent asthma without complication; Acute cough Start: 06-30-2022 End: 06-30-2022 Patient encounter status Em Romero APRN.STAVE CUTTING SUPERVISOR Work Phone: [facility] Start: 06-29-2022 Telephone encounter Laila ayala MD Work Phone: [facility] Comment on above: Appointment; Pre-Op paperwork Start: 06-22-2022 End: 06-22-2022 Subsequent hospital visit by physician [facility] Work Phone: Radiology Comment on above: Preop examination [Z 01.818] Start: 06-22-2022 End: 06-22-2022 Office outpatient visit 25 minutes Laila Ramos MD Work Phone: [facility] Comment on above: AB (asthmatic bronch itis), moderate persistent, with acute exacerbation (Primary Dx); Viral syndrome; Subacute cough; HARRIS (dyspnea on exertion); Fatigue, unspecified type; PAF (paroxysmal atrial fibrillation) ([facility]); Essential hypertension; Moderate persistent asthma without complication; Chronic ITP (idiopathic thrombocytopenia) ([facility]); Crohn's disease of both small and large intestine without complication ([facility]); Intermittent palpitations; Respiratory infection; Cough; Preop examination Start: 06-22-2022 End: 06-22-2022 Preprocedural examination done Laila Ramos MD Work Phone: [facility] Start: 04-30-2022 Refill Laila choi MD Work Phone: [facility] Comment on above: Refill Request Start: 01-27-2022 End: 01-27-2022 Office outpatient visit 25 minutes Laila Ramos MD Work Phone: [facility] Comment on above: Elevated fasting glu cose (Primary Dx); Essential tremor; Essential hypertension; Vitamin D deficiency; Mixed hyperlipidemia Start: 07-17-2021 End: 07-17-2021 Subsequent hospital visit by physician [facility] Work Phone: Radiology Comment on above: [...] Laila Ramos MD Work Phone: Start: 11-02-2022 PFIZER-BIONTGTI COVI D-19 BIVALENT BOOSTER VACCINE, AGE 12+ [...] Author Start: 11-20-2027 Diabetes Screening Diabetes Screening [facility] Start: 02-17-2027 Diabetes Screening Diabetes Screening [facility] Start: 10-29-2026 Diabetes Screening Diabetes Screening [facility] Start: 07-09-2026 DIABETES SCREEN DIABETES SCREEN [facility] Start: 03-18-2026 End: 03-18-2026 Patient encounter procedure 03/18/2026 2:40 PM EDT Office Visit [facility] [address] [facility] [place] [address] Laila Ramos MD [address] [facility] [place] [address] 4 month follow up [facility] Comment on above: 4 month follow up Start: 01-22-2026 DIABETES SCREEN DIABETES SCREEN [facility] Start: 11-21-2025 End: 11-21-2025 Patient encounter procedure 11/21/2025 9:40 AM EST Office Visit [facility] [address] [place] [address] Laila Ramos MD [address] [place] [address] 4 month follow up [facility] Comment on above: 4 month follow up Start: 09-25-2025 Covid-19 Vaccine () Covid-19 Vaccine () [facility] Comment on above: Postponed from 07/30/2024 (Declined at t his time) Start: 08-11-2025 End: 11-10-2025 Lipid 1996 panel - Serum or Plasma LIPID PANEL, FASTING Lab Routine Encounter for long-term current use of medication Mixed hyperlipidemia Expected: 08/11/2025 (Approximate), Expires: 11/10/2025 [facility] Comment on above: Expected: 08/11/2025 (Approximate), Expi res: 11/10/2025 Start: 07-27-2025 End: 07-27-2025 Patient encounter procedure 07/27/2025 1:40 PM EDT Office Visit [facility] [address] [place] [address] Laila Ramos MD [address] [facility] [place] [address] 4 month follow up [facility] Comment on above: 4 month follow up Start: 06-22-2025 DIABETES SCREEN DIABETES SCREEN [facility] Start: 04-10-2025 End: 04-10-2025 Patient encounter procedure 04/10/2025 3:20 PM EDT Office Visit [facility] [address] [facility] [place] [address] Laila Ramos MD [address] [place] [address] 4 month follow up [facility] Comment on above: 4 month follow up Start: 03-26-2025 End: 03-26-2025 Patient encounter procedure 03/26/2025 2:40 PM EDT Office Visit [facility] [address] [place] [address] Laila Ramos MD [address] [place] [address] 4 month follow up [facility] Comment on above: 4 month follow up Start: 02-05-2025 DIABETES SCREEN DIABETES SCREEN [facility] Start: 11-29-2024 Advance Directive Discussion Advance Directive Discussion [facility] Start: 11-20-2024 End: 10-29-2025 25-hydroxyvitamin D3 [Mass/volume] in Serum or Plasma VITAMIN D 25 HYDROXY Lab Routine Vitamin D deficiency Expected: 11/20/2024 (Approximate), Expires: 10/29/2025 [facility] Comment on above: Expected: 11/20/2024 (Approximate), Expi res: 10/29/2025 Start: 11-20-2024 End: 10-29-2025 CBC W Auto Differential panel - Blood COMPLETE BLOOD COUNT AND DIFFERENTIAL Lab Routine Essential hypertension S/P shoulder replacement, left Crohn's disease of both small and large intestine without complication (HCC) Chronic ITP (idiopathic thrombocytopenia) (HCC) Expected: 11/20/2024 (Approximate), Expires: 10/29/2025 [facility] Comment on above: Expected: 11/20/2024 (Approximate), Expi res: 10/29/2025 Start: 11-20-2024 End: 10-29-2025 Comprehensive metabolic 2000 panel - Serum or Plasma COMPREHENSIVE METABOLIC PANEL Lab Routine Essential hypertension S/P shoulder replacement, left Crohn's disease of both small and large intestine without complication (HCC) Expected: 11/20/2024 (Approximate), Expires: 10/29/2025 [facility] Work Phone: Comment on above: Expected: 11/20/2024 (Approximate), Expi res: 10/29/2025 Start: 11-20-2024 End: 10-29-2025 Lipid 1996 panel - Serum or Plasma LIPID PANEL BASIC Lab Routine Essential hypertension Expected: 11/20/2024 (Approximate), Expires: 10/29/2025 [facility] Comment on above: Expected: 11/20/2024 (Approximate), Expi res: 10/29/2025 Start: 11-20-2024 End: 11-20-2024 Patient encounter procedure 11/20/2024 10:00 AM EST Office Visit [facility] [address] [place] [address] Laila Ramos MD [address] [place] [address] Medicare Wellness/4 month follow up [facility] Comment on above: Medicare Wellness/4 month follow up Start: 11-05-2024 Covid-19 Vaccine ( season) Covid-19 Vaccine () [facility] Comment on above: Postponed from 07/30/2023 (Declined at t his time) Start: 11-02-2024 End: 11-02-2024 Patient encounter procedure 11/02/2024 9:00 AM EST Office Visit [facility] [address] [place] [address] Em Romero APRN.STAVE CUTTING SUPERVISOR [address] [place] [address] Justinmalaika Keewn f/u left reverse total shoulder replacement [facility] Comment on above: Justin Christoval f/u left reverse total shoulder replacement Start: 10-29-2024 End: 01-28-2025 25-hydroxyvitamin D3 [Mass/volume] in Serum or Plasma VITAMIN D 25 HYDROXY Lab Routine Vitamin D deficiency Expected: 10/29/2024 (Approximate), Expires: 01/28/2025 [facility] Comment on above: Expected: 10/29/2024 (Approximate), Expi res: 01/28/2025 Start: 10-29-2024 End: 01-28-2025 CBC panel - Blood by Automated count COMPLETE BLOOD COUNT Lab Routine Essential hypertension Encounter for long-term current use of medication Expected: 10/29/2024 (Approximate), Expires: 01/28/2025 [facility] Comment on above: Expected: 10/29/2024 (Approximate), Expi res: 01/28/2025 Start: 10-29-2024 End: 01-28-2025 Comprehensive metabolic 2000 panel - Serum or Plasma COMPREHENSIVE METABOLIC PANEL Lab Routine Essential hypertension IFG (impaired fasting glucose) Encounter for long-term current use of medication Expected: 10/29/2024 (Approximate), Expires: 01/28/2025 [facility] Work Phone: Comment on above: Expected: 10/29/2024 (Approximate), Expi res: 01/28/2025 Start: 10-29-2024 End: 01-28-2025 Hemoglobin A1c in Blood HEMOGLOBIN A1C Lab Routine IFG (impaired fasting glucose) Encounter for long-term current use of medication Expected: 10/29/2024 (Approximate), Expires: 01/28/2025 [facility] Comment on above: Expected: 10/29/2024 (Approximate), Expi res: 01/28/2025 Start: 10-29-2024 End: 01-28-2025 Lipid 1996 panel - Serum or Plasma LIPID PANEL BASIC Lab Routine Mixed hyperlipidemia Encounter for long-term current use of medication Expected: 10/29/2024 (Approximate), Expires: 01/28/2025 [facility] Comment on above: Expected: 10/29/2024 (Approximate), Expi res: 01/28/2025 Start: 10-29-2024 End: 01-28-2025 Magnesium [Mass/volume] in Serum or Plasma MAGNESIUM Lab Routine Hypomagnesemia Encounter for long-term current use of medication Expected: 10/29/2024 (Approximate), Expires: 01/28/2025 [facility] Comment on above: Expected: 10/29/2024 (Approximate), Expi res: 01/28/2025 Start: 10-04-2024 End: 10-04-2024 Patient encounter procedure 10/04/2024 2:00 PM EST Office Visit Neurology [address] [facility] [address] [place] [id number] Lili Hawk MD [address] [facility] [address] [place] [address] tremor of both hands Neurology Comment on above: tremor of both hands Start: 09-25-2024 End: 09-25-2024 Patient encounter procedure 09/25/2024 2:20 PM EDT Office Visit [facility] [address] [place] [address] Chloé Farrell APRN.LIVESTOCK SPECULATOR [address] [place], [place] [address] Pre Surgical Clearance; [facility] Left Shoulder Replacement; Dr. Healy [facility] Comment on above: Pre Surgical Clearance; [facility] Left Shoulder Replacement; Dr. Healy Start: 09-25-2024 End: 12-25-2024 25-hydroxyvitamin D3 [Mass/volume] in Serum or Plasma VITAMIN D 25 HYDROXY Lab Routine Vitamin D deficiency Expected: 09/25/2024, Expires: 12/25/2024 [facility] Comment on above: Expected: 09/25/2024, Expires: Start: 09-25-2024 End: 12-25-2024 CBC W Auto Differential panel - Blood COMPLETE BLOOD COUNT AND DIFFERENTIAL Lab Routine Encounter for therapeutic drug monitoring Expected: 09/25/2024, Expires: 12/25/2024 [facility] Work Phone: Comment on above: Expected: 09/25/2024, Expires: Start: 09-25-2024 End: 12-25-2024 Comprehensive metabolic 2000 panel - Serum or Plasma COMPREHENSIVE METABOLIC PANEL Lab Routine Encounter for therapeutic drug monitoring Expected: 09/25/2024, Expires: 12/25/2024 [facility] Comment on above: Expected: 09/25/2024, Expires: Start: 09-25-2024 End: 12-25-2024 Hemoglobin A1c in Blood HEMOGLOBIN A1C Lab Routine IFG (impaired fasting glucose) Expected: 09/25/2024, Expires: 12/25/2024 [facility] Comment on above: Expected: 09/25/2024, Expires: Start: 09-25-2024 End: 12-25-2024 Lipid 1996 panel - Serum or Plasma LIPID PANEL BASIC Lab Routine Pure hypercholesterolemia Expected: 09/25/2024, Expires: 12/25/2024 [facility] Comment on above: Expected: 09/25/2024, Expires: Start: 09-25-2024 End: 12-25-2024 Magnesium [Mass/volume] in Serum or Plasma MAGNESIUM Lab Routine Encounter for therapeutic drug monitoring Expected: 09/25/2024, Expires: 12/25/2024 [facility] Comment on above: Expected: 09/25/2024, Expires: Start: 08-15-2024 Hepb vaccine adult 3 dose schedule for im use HEP B VACCINE, 3-DOSE, AGE 20+ YR (ENGERIX-B, RECOMBIVAX HB) Immunization/Injection Routine Encounter for immunization Expected: 08/15/2024 [facility] Work Phone: Comment on above: Expected: 08/15/2024 Start: 07-30-2024 Covid-19 Vaccine ( season) Covid-19 Vaccine ( season) [facility] Start: 07-30-2024 Influenza [facility] Start: 07-03-2024 End: 07-03-2024 Patient encounter procedure 07/03/2024 4:20 PM EDT Office Visit [facility] [address] [place] [address] [address] Laila Ramos MD [address] [place] [place] [address] 4 mth f/u [facility] Comment on above: 4 mth f/u Start: 06-22-2024 End: 06-22-2024 Patient encounter procedure 06/22/2024 3:30 PM EDT Office Visit Neurology [address] [id number] Lili Hawk MD [address] [facility] [address] [place] [address] Tremor of both hands [R25.1] Neurology Comment on above: Tremor of both hands [R25.1] Start: 03-19-2024 Hepb vaccine adult 3 dose schedule for im use HEP B VACCINE, 3-DOSE, AGE 20+ YR (ENGERIX-B, RECOMBIVAX HB) Immunization/Injection Routine Encounter for immunization Expected: 03/19/2024 [facility] Work Phone: Comment on above: Expected: 03/19/2024 Start: 01-22-2024 SHINGRIX VACCINE (1 of 2) SHINGRIX VACCINE (1 of 2) [facility] Comment on above: Postponed from 1990 (Declined at t his time) Start: 01-22-2024 Urine microalbumin profile [facility] Comment on above: Postponed from 08/22/2018 (Declined at t his time) Start: 11-29-2023 Advance Directive Discussion Advance Directive Discussion [facility] Start: 11-11-2023 End: 01-11-2024 25-hydroxyvitamin D3 [Mass/volume] in Serum or Plasma VITAMIN D 25 HYDROXY Lab Routine Vitamin D deficiency Expected: 11/11/2023 (Approximate), Expires: 01/11/2024 [facility] Work Phone: Comment on above: Expected: 11/11/2023 (Approximate), Expi res: 01/11/2024 Start: 11-11-2023 End: 01-11-2024 CBC panel - Blood by Automated count CBC Lab Routine Essential hypertension Encounter for long-term current use of medication Expected: 11/11/2023 (Approximate), Expires: 01/11/2024 [facility] Work Phone: Comment on above: Expected: 11/11/2023 (Approximate), Expi res: 01/11/2024 Start: 11-11-2023 End: 01-11-2024 Comprehensive metabolic 2000 panel - Serum or Plasma COMP METABOLIC PANEL Lab Routine Essential hypertension Encounter for long-term current use of medication IFG (impaired fasting glucose) Expected: 11/11/2023 (Approximate), Expires: 01/11/2024 [facility] Work Phone: Comment on above: Expected: 11/11/2023 (Approximate), Expi res: 01/11/2024 Start: 11-11-2023 End: 01-11-2024 Hemoglobin A1c in Blood HGB A1C Lab Routine IFG (impaired fasting glucose) Expected: 11/11/2023 (Approximate), Expires: 01/11/2024 [facility] Work Phone: Comment on above: Expected: 11/11/2023 (Approximate), Expi res: 01/11/2024 Start: 11-11-2023 End: 01-11-2024 Lipid 1996 panel - Serum or Plasma LIPID PANEL BASIC Lab Routine Mixed hyperlipidemia Expected: 11/11/2023 (Approximate), Expires: 01/11/2024 [facility] Work Phone: Comment on above: Expected: 11/11/2023 (Approximate), Expi res: 01/11/2024 Start: 11-11-2023 End: 01-11-2024 Magnesium [Mass/volume] in Serum or Plasma MAGNESIUM BLD Lab Routine Encounter for long-term current use of medication Expected: 11/11/2023 (Approximate), Expires: 01/11/2024 [facility] Work Phone: Comment on above: Expected: 11/11/2023 (Approximate), Expi res: 01/11/2024 Start: 11-11-2023 End: 01-11-2024 Urate [Mass/volume] in Serum or Plasma URIC ACID BLOOD Lab Routine Encounter for long-term current use of medication Expected: 11/11/2023 (Approximate), Expires: 01/11/2024 [facility] Work Phone: Comment on above: Expected: 11/11/2023 (Approximate), Expi res: 01/11/2024 Start: 07-30-2023 Covid-19 Vaccine () Covid-19 Vaccine () [facility] Start: 07-30-2023 Influenza vaccination [facility] Start: 03-03-2023 End: 05-03-2023 25-hydroxyvitamin D3 [Mass/volume] in Serum or Plasma VITAMIN D 25 HYDROXY Lab Routine Vitamin D deficiency Expected: 03/03/2023 (Approximate), Expires: 05/03/2023 [facility] Work Phone: Comment on above: Expected: 03/03/2023 (Approximate), Expi res: 05/03/2023 Start: 03-03-2023 End: 05-03-2023 CBC panel - Blood by Automated count CBC Lab Routine Encounter for long-term current use of medication Expected: 03/03/2023 (Approximate), Expires: 05/03/2023 [facility] Work Phone: Comment on above: Expected: 03/03/2023 (Approximate), Expi res: 05/03/2023 Start: 03-03-2023 End: 05-03-2023 Comprehensive metabolic 2000 panel - Serum or Plasma COMP METABOLIC PANEL Lab Routine IFG (impaired fasting glucose) Encounter for long-term current use of medication Expected: 03/03/2023 (Approximate), Expires: 05/03/2023 [facility] Work Phone: Comment on above: Expected: 03/03/2023 (Approximate), Expi res: 05/03/2023 Start: 03-03-2023 COVID-19 VACCINE (4 - Pfizer series) COVID-19 VACCINE (4 - Pfizer series) [facility] Start: 03-03-2023 End: 05-03-2023 Hemoglobin A1c in Blood HGB A1C Lab Routine IFG (impaired fasting glucose) Expected: 03/03/2023 (Approximate), Expires: 05/03/2023 [facility] Work Phone: Comment on above: Expected: 03/03/2023 (Approximate), Expi res: 05/03/2023 Start: 03-03-2023 End: 05-03-2023 Lipid 1996 panel - Serum or Plasma LIPID PANEL BASIC Lab Routine Mixed hyperlipidemia Expected: 03/03/2023 (Approximate), Expires: 05/03/2023 [facility] Work Phone: Comment on above: Expected: 03/03/2023 (Approximate), Expi res: 05/03/2023 Start: 03-03-2023 End: 05-03-2023 Magnesium [Mass/volume] in Serum or Plasma MAGNESIUM BLD Lab Routine Encounter for long-term current use of medication Expected: 03/03/2023 (Approximate), Expires: 05/03/2023 [facility] Work Phone: Comment on above: Expected: 03/03/2023 (Approximate), Expi res: 05/03/2023 Start: 11-30-2022 SHINGRIX VACCINE (1 of 2) SHINGRIX VACCINE (1 of 2) [facility] Comment on above: Postponed from 1990 (Insurance Cov erage) Start: 11-30-2022 Urine microalbumin profile DTAP,TDAP,TD (2 - Tdap) [facility] Comment on above: Postponed from 08/22/2018 (Insurance Cov erage) Start: 11-29-2022 ADVANCE DIRECTIVE DISCUSSION ADVANCE DIRECTIVE DISCUSSION [facility] Start: 09-23-2022 SPIROMETRY SPIROMETRY [facility] Comment on above: Postponed from 1958 (Declined at t his time) Start: 07-30-2022 Influenza vaccination INFLUENZA (#1) [facility] Start: 05-02-2022 SHINGRIX VACCINE (1 of 2) SHINGRIX VACCINE (1 of 2) [facility] Comment on above: Postponed from 1990 (Declined at t his time) Start: 05-02-2022 Urine microalbumin profile DTAP,TDAP,TD (2 - Tdap) [facility] Comment on above: Postponed from 08/22/2018 (Declined at t his time) Start: 12-02-2021 COVID-19 VACCINE (3 - Booster for Pfizer series) COVID-19 VACCINE (3 - Booster for Pfizer series) [facility] Start: 11-29-2021 ADVANCE DIRECTIVE DISCUSSION ADVANCE DIRECTIVE DISCUSSION [facility] Start: 08-27-2021 COVID-19 VACCINE (3 - Booster for Pfizer series) COVID-19 VACCINE (3 - Booster for Pfizer series) [facility] Start: 08-22-2018 Urine microalbumin profile [facility] Start: 2015 RSV Vaccine (1 - 1-dose 75+ series) RSV Vaccine (1 - 1-dose 75+ series) [facility] Start: 2000 HEPATITIS B (1 of 3 - Risk 3-dose series) HEPATITIS B (1 of 3 - Risk 3-dose series) [facility] Start: 2000 Hepatitis B Vaccine (1 of 3 - Risk 3-dose series) Hepatitis B Vaccine (1 of 3 - Risk 3-dose series) [facility] Start: 2000 RSV Vaccine (1 - 1-dose 60+ series) RSV Vaccine (1 - 1-dose 60+ series) [facility] Start: 1990 SHINGRIX VACCINE (1 of 2) SHINGRIX VACCINE (1 of 2) [facility] Start: 1959 HEPATITIS A (1 of 2 - Risk 2-dose series) HEPATITIS A (1 of 2 - Risk 2-dose series) [facility] Start: 1959 Hepatitis A Vaccine (1 of 2 - Risk 2-dose series) Hepatitis A Vaccine (1 of 2 - Risk 2-dose series) [facility] Start: 1959 HEPATITIS B (1 of 3 - Risk 3-dose series) HEPATITIS B (1 of 3 - Risk 3-dose series) [facility] Start: 1958 MMR (1 of 2 - Risk 2-dose series) MMR (1 of 2 - Risk 2-dose series) [facility] Start: 1958 MMR Vaccine (1 of 2 - Risk 2-dose series) MMR Vaccine (1 of 2 - Risk 2-dose series) [facility] Start: 1958 SPIROMETRY SPIROMETRY [facility] Start: 1950 Meningococcal B Vaccine: Consider Based On Risk (1 of 4 - Increased Risk) Meningococcal B Vaccine: Consider Based On Risk (1 of 4 - Increased Risk) [facility] Start: 1950 MENINGOCOCCAL B: Consider based on risk (1 of 4 - Increased Risk Bexsero 2-dose series) MENINGOCOCCAL B: Consider based on risk (1 of 4 - Increased Risk Bexsero 2-dose series) [facility] Start: 1950 MENINGOCOCCAL B: Consider based on risk (1 of 4 - Increased Risk) MENINGOCOCCAL B: Consider based on risk (1 of 4 - Increased Risk) [facility] Start: 1941 HEPATITIS A (1 of 2 - Risk 2-dose series) HEPATITIS A (1 of 2 - Risk 2-dose series) [facility] End: 04-10-2026 25-hydroxyvitamin D3 [Mass/volume] in Serum or Plasma VITAMIN D 25 HYDROXY Lab Routine Vitamin D deficiency Every 4 months for 60 Occurrences starting 04/10/2025 until 04/10/2026 [facility] Comment on above: Every 4 months for 60 Occurrences starti ng 04/10/2025 until 04/10/2026 25-hydroxyvitamin D3 [Mass/volume] in Serum or Plasma VITAMIN D 25 HYDROXY Lab Routine Vitamin D deficiency 04/10/2025 4:19 PM EDT [facility] End: 04-10-2026 CBC panel - Blood by Automated count COMPLETE BLOOD COUNT Lab Routine Essential hypertension Encounter for long-term current use of medication Every 4 months for 60 Occurrences starting 04/10/2025 until 04/10/2026, 1 completed [facility] Comment on above: Every 4 months for 60 Occurrences starti ng 04/10/2025 until 04/10/2026, 1 completed End: 04-10-2026 Comprehensive metabolic 2000 panel - Serum or Plasma COMPREHENSIVE METABOLIC PANEL Lab Routine Essential hypertension IFG (impaired fasting glucose) Encounter for long-term current use of medication Every 4 months for 60 Occurrences starting 04/10/2025 until 04/10/2026 [facility] Work Phone: Comment on above: Every 4 months for 60 Occurrences starti ng 04/10/2025 until 04/10/2026 Comprehensive metabolic 2000 panel - Serum or Plasma COMPREHENSIVE METABOLIC PANEL Lab Routine Essential hypertension IFG (impaired fasting glucose) Encounter for long-term current use of medication 04/10/2025 4:19 PM EDT [facility] End: 06-22-2023 ECG COMPLETE ECG COMPLETE ECG Routine HARRIS (dyspnea on exertion) PAF (paroxysmal atrial fibrillation) (HCC) Intermittent palpitations 1 Occurrences starting 06/22/2022 until 06/22/2023 [facility] Work Phone: Comment on above: 1 Occurrences starting 06/22/2022 until 06/22/2023 End: 04-10-2026 Hemoglobin A1c in Blood HEMOGLOBIN A1C Lab Routine IFG (impaired fasting glucose) Encounter for long-term current use of medication Every 4 months for 60 Occurrences starting 04/10/2025 until 04/10/2026 [facility] Comment on above: Every 4 months for 60 Occurrences starti ng 04/10/2025 until 04/10/2026 Hemoglobin A1c in Blood HEMOGLOBIN A1C Lab Routine IFG (impaired fasting glucose) Encounter for long-term current use of medication 04/10/2025 4:19 PM EDT [facility] Hepa vaccine adult dose for intramuscular use HEPATITIS A VACCINE ADULT IM Immunization/Injection Routine Encounter for immunization 1 Occurrences starting 06/30/2022 [facility] Work Phone: Comment on above: 1 Occurrences starting 06/30/2022 Hepa vaccine adult dose for intramuscular use HEP A VACCINE, ADULT (HAVRIX, VAQTA) Immunization/Injection Routine Encounter for immunization 1 Occurrences starting 02/17/2024 [facility] Work Phone: Comment on above: 1 Occurrences starting 02/17/2024 Hepb vaccine adult 3 dose schedule for im use HEPATITIS B VACCINE, ADULT AGE 20+, IM Immunization/Injection Routine Encounter for immunization 1 Occurrences starting 06/30/2022 [facility] Work Phone: Comment on above: 1 Occurrences starting 06/30/2022 Hepb vaccine adult 3 dose schedule for im use HEP B VACCINE, 3-DOSE, AGE 20+ YR (ENGERIX-B, RECOMBIVAX HB) Immunization/Injection Routine Encounter for immunization 1 Occurrences starting 02/17/2024 [facility] Work Phone: Comment on above: 1 Occurrences starting 02/17/2024 End: 04-10-2026 Magnesium [Mass/volume] in Serum or Plasma MAGNESIUM Lab Routine Encounter for long-term current use of medication Hypomagnesemia Every 4 months for 60 Occurrences starting 04/10/2025 until 04/10/2026 [facility] Comment on above: Every 4 months for 60 Occurrences starti ng 04/10/2025 until 04/10/2026 Magnesium [Mass/volume] in Serum or Plasma MAGNESIUM Lab Routine Encounter for long-term current use of medication Hypomagnesemia 04/10/2025 4:19 PM EDT [facility] Measles mumps rubell a virus vaccine live subq MMR VIRUS IMMUNIZATION, SUBCUT Immunization/Injection Routine Encounter for immunization 1 Occurrences starting 06/30/2022 [facility] Work Phone: Comment on above: 1 Occurrences starting 06/30/2022 Measles mumps rubell a virus vaccine live subq MMR VACCINE (M-M-R II, PRIORIX) Immunization/Injection Routine Encounter for immunization 1 Occurrences starting 02/17/2024 [facility] Work Phone: Comment on above: 1 Occurrences starting 02/17/2024 MENINGOCOCCAL B VACCINE (BEXSERO) MENINGOCOCCAL B VACCINE (BEXSERO) Immunization/Injection Routine Encounter for immunization 1 Occurrences starting 02/17/2024 [facility] Work Phone: Comment on above: 1 Occurrences starting 02/17/2024 MENINGOCOCCAL GROUP B VACCINE 2 DOSE MENINGOCOCCAL GROUP B VACCINE 2 DOSE Immunization/Injection Routine Encounter for immunization 1 Occurrences starting 06/30/2022 [facility] Work Phone: Comment on above: 1 Occurrences starting 06/30/2022 PFIZER-BIONTECH COVID-19 VACCINE, AGE 12+ YR (CH TOP) PFIZER-BIONTECH COVID-19 VACCINE, AGE 12+ YR (CH TOP) Immunization/Injection Routine Encounter for immunization 1 Occurrences starting 06/30/2022 [facility] Work Phone: Comment on above: 1 Occurrences starting 06/30/2022 Removal impacted cerumen irrigation/lvg unilat AMBULATORY EAR LAVAGE/IRRIGATION Procedures Routine Bilateral impacted cerumen Ordered: 07/12/2023 [facility] Work Phone: Comment on above: Ordered: 07/12/2023 End: 12-02-2023 SPIROMETRY BASELINE ONLY SPIROMETRY BASELINE ONLY PFT Routine Chronic cough Chronic bronchitis, unspecified chronic bronchitis type (HCC) Decreased exercise tolerance 1 Occurrences starting 11/02/2022 until 12/02/2023 [facility] Work Phone: Comment on above: 1 Occurrences starting 11/02/2022 until 12/02/2023 [facility] Immunizations Immunization Date Immunization Notes Care Provider Fa cili 09-25-2024 influenza virus vacc ine, unspecified formulation QUINTNI KAY DO [facility] 09-25-2024 influenza, high dose seasonal, preservative-free Chloé Jami INFECTION CONTROL MANAGER.LIVESTOCK SPECULATOR Work Phone: [facility] 11-05-2023 influenza (HD-IIV4) vaccine, age 65+ yr, high dose, quadrivalent, PF (FLUZONE HIGH-DOSE) Chloé Penar INFECTION CONTROL MANAGER.LIVESTOCK SPECULATOR Work Phone: [facility] 11-05-2023 influenza virus vacc ine, unspecified formulation Laila Ramos MD Work Phone: [facility] 11-02-2022 COVID-19 booster vaccine, age 12+ yr, bivalent (PFIZERBeauty NotedNTGTI) [facility] Work Phone: [facility] 11-02-2022 influenza, high-dose , quadrivalent vaccine (FLUZONE HIGH DOSE QUADRIVALENT) [facility] Work Phone: [facility] 11-02-2022 influenza virus vacc ine, unspecified formulation Laila Ramos MD Work Phone: [facility] 09-23-2021 influenza virus vacc ine, unspecified formulation QUINTIN KAY DO [facility] 09-23-2021 influenza, high-dose , quadrivalent vaccine (FLUZONE HIGH DOSE QUADRIVALENT) Laila Ramos MD Work Phone: [facility] 07-02-2021 SARS-CoV-2 mRNA (tozinameran) vaccine QUINTIN KAY DO Justin Christoval Comment on above: Result Comment: 2023: [id number] 06-10-2021 SARS-CoV-2 mRNA (tozinameran) vaccine QUINTIN KAY DO Justin Leon Comment on above: Result Comment: 2023: [id number] 10-09-2020 influenza virus vacc ine, unspecified formulation QUINTIN KAY DO [facility] 10-09-2020 influenza, high-dose , quadrivalent vaccine (FLUZONE HIGH DOSE QUADRIVALENT) Laila Ramos MD Work Phone: [facility] Work Phone: 09-08-2019 influenza virus vacc ine, unspecified formulation QUINTIN KAY DO [facility] 09-08-2019 influenza, high dose seasonal, preservative-free Laila Ramos MD Work Phone: [facility] 09-12-2018 influenza virus vacc ine, unspecified formulation QUINTIN KAY DO [facility] 09-12-2018 influenza, high dose seasonal, preservative-free Laila Ramos MD Work Phone: [facility] 08-29-2018 Influenza virus vaccine [facility] 10-19-2017 influenza virus vacc ine, unspecified formulation QUINTIN KAY DO [facility] 10-19-2017 influenza, high dose seasonal, preservative-free Laila Ramos MD Work Phone: [facility] 10-08-2017 Influenza virus vaccine [facility] 10-26-2016 influenza, high dose seasonal, preservative-free Laila Ramos MD Work Phone: [facility] 10-07-2015 influenza virus vacc ine, unspecified formulation QUINTIN KAY DO [facility] 10-07-2015 influenza, high dose seasonal, preservative-free Laila Ramos MD Work Phone: [facility] Work Phone: 12-13-2014 pneumococcal conjuga te vaccine, 13 valent Laila Ramos MD Work Phone: [facility] 09-07-2014 influenza virus vacc ine, unspecified formulation [facility] SC[facility]LE [facility] 09-07-2014 influenza, seasonal, injectable Laila Ramos MD Work Phone: [facility] 08-28-2013 influenza virus vacc toby, unspecified formulation Laila Ramos MD Work Phone: [facility] 08-26-2012 influenza virus vacc toby, unspecified formulation Laila Ramos MD Work Phone: [facility] 09-22-2011 influenza virus vacc ine, unspecified formulation Laila Ramos MD Work Phone: [facility] 10-09-2010 influenza virus vacc toby, unspecified formulation Laila Ramos MD Work Phone: [facility] 12-17-2009 novel influenza-H1N1 -09, preservative-free, injectable Chloé Farrell INFECTION CONTROL MANAGER.LIVESTOCK SPECULATOR Work Phone: [facility] 10-03-2008 influenza virus vacc toby, unspecified formulation Laila Ramos MD Work Phone: [facility] Work Phone: 08-22-2008 diphtheria and tetan us toxoids, adsorbed for pediatric use Laila Ramos MD Work Phone: [facility] Work Phone: 10-05-2007 influenza virus vacc toby, unspecified formulation Laila Ramos MD Work Phone: [facility] Work Phone: 10-05-2007 pneumococcal polysaccharide vaccine, 23 valent Laila Ramos MD Work Phone: [facility] Work Phone: 10-07-2006 influenza virus vacc toby, unspecified formulation Laila Ramos MD Work Phone: [facility] 10-07-2005 influenza virus vacc toby, unspecified formulation Laila Ramos MD Work Phone: [facility] 08-18-2001 pneumococcal polysaccharide vaccine, 23 valent Laila Ramos MD Work Phone: [facility] Work Phone: Payers Date Payer Category Payer Self-pay [id number] 2005 Medicare MEDICARE MEDICAR E A AND B [id number] 2005-Present [phone] [place] [address] Medicare [id number] 2005 Medicare [id number] 2005 Medicare [id number] 2004 [employer] Shield BLUE CARD TRADITIONAL OOS [id number] 2004 Unknown ANTHEM BLUE CARD TRADITIONAL OOS [id number] 2004-Present [phone] [address] [place] [address] Indemnity [id number] 2004 Unknown ANTHEM BLUE CARD TRADITIONAL OOS [id number] 2004-Present [phone] [address] [place] [address] Indemnity [id number] 2004 Unknown [id number] 1940 Unknown [id number] Unknown [id number] Unknown [id number] Unknown [id number] Unknown [id number] Unknown [id number] Unknown [id number] Social History Date Type Detail Facility Start: 07-25-2012 End: 09-13-2024 Tobacco smoking status NHIS Ex-smoker [facility] Start: 11-29-1957 End: 11-29-1962 History of tobacco use Current smoker [facility] Start: 11-29-1957 End: 11-29-1962 History of tobacco use Cigarette Smoker [facility] End: 11-29-1962 History of tobacco use Pipe Smoker [facility] Start: 09-23-2021 End: 11-20-2024 Alcohol intake Current drinker of alcohol (finding) [facility] Start: 09-23-2021 End: 07-12-2023 Alcohol intake [facility] Start: 07-25-2012 End: 11-17-2022 Tobacco Comment Pt smoked on & off x 5 years, never a heavy smoker [facility] Start: 1940 Sex Assigned At Not on file [facility] Start: 06-17-2021 End: 11-02-2022 Exposure to SARS-CoV-2 (event) Not sure [facility] Start: 03-20-2022 Tobacco smoking stat us SDIS Unknown if ever smoked [facility] Start: 08-25-2021 [facility] Start: 08-25-2021 Alone [facility] Start: 08-25-2021 Non-smoker [facility] Start: 1940 Sex Assigned At Male [facility] Start: 07-25-2012 End: 09-25-2024 Tobacco use and exposure Smokeless tobacco non-user [facility] Start: 03-01-2023 End: 07-12-2023 Tobacco use panel [facility] Adult Depression Screening Assessment 0 [facility] Start: 10-16-2024 Tobacco smoking status Never s moked tobacco (finding) [facility] How often to you hav e a drink containing alcohol? Monthly or less [facility] How many standard drinks containing alcohol do you have on a typical day? 1 or 2 [facility] How often do you hav e 6 or more drinks on 1 occasion? Never [facility] Medical Equipment Procedure Code Equipment Code Equipment Origin al Text Equipment Identifier Dates SCREW FDA Start: 10-12-2024 ([id number]) Reverse shoulder prosthesis base plate ()[id number] FDA Start: 10-12-2024 Polyethylene rev erse shoulder prosthesis cup ()[id number] FDA Start: 10-12-2024 Coated shoulder humeral stem prosthesis ()[id number] FDA Start: 10-12-2024 Reverse shoulder prosthesis head ()[id number] FDA Start: 10-12-2024 Orthopaedic bone screw, non-bioabsorbable, sterile ()[id number] FDA Start: 10-12-2024 Goals Date Patient [...] 10-28-2024 Functional Status Room check performed Shayy [facility] 10-28-2024 Functional Status [facility] 10-27-2024 Functional Status [facility] 10-27-2024 Functional Status Repositions self Azra n Christoval 10-27-2024 Functional Status 12 [facility]-27[facility] Functional Status [facility] 10-26-2024 Functional Status [facility] 10-26[facility] Status [facility] 10-25-[facility] Functional Status [facility] 10-25-[facility] Functional Status [facility] 10-25-[facility] Functional Status [facility] 10-25[facility] Functional Status [facility] 10-25-2024 Functional Status Has 2 children that he claims with only one in the area but she is not dependable Pt has some close friends he meets every for coffee. [facility] 10-24-[facility] Functional Status [facility] 10-23-2024 Functional Status carry plastic bag with laundry up and down the steps [facility] 10-22-2024 Functional Status [facility] 10-21-2024 Functional Status [facility] 10-20-2024 Functional Status Antiembolism S tocking On/Re-applied bilateral knee high [facility] 10-19-2024 Functional Status 3pm-7pm [facility] 10-18-[facility] Functional Status [facility] 10-18-2024 Functional Status [facility] 10-18-2024 Functional Status 1st floor bedr oom, 1st floor bathroom [facility] 10-18-2024 Functional Status [facility] 10-17[facility] Functional Status Sensory Deficits None A gia Christoval 10-16-2024 Functional Status [facility] 06-04-2015 Are you deaf, or do you have serious difficulty hearing No 06/04/2015 3:23 PM EDT Kellie Matt RN No [facility] 06-04-2015 Are you blind, or do you have serious difficulty seeing, even when wearing glasses No 06/04/2015 3:23 PM EDT Kellie Matt, RN No [facility] 06-04-2015 Do you have serious difficulty walking or climbing stairs No 06/04/2015 3:23 PM EDT Kellie Matt RN No [facility] 06-04-2015 Do you have difficul ty dressing or bathing No 06/04/2015 3:23 PM EDT Kellie Matt RN No [facility] 06-04-2015 Because of a physica l, mental, or emotional condition, do you have difficulty doing errands alone such as visiting a physician's office or shopping No 06/04/2015 3:23 PM EDT Kellie Matt RN [facility] Mental Status Date Assessment Result Facility 10-28-2024 Mental Status Oriented x 4 [facility] 10-28-2024 Mental Status [facility] 10-27-2024 Mental Status [facility] 06-04-2015 Because of a physica l, mental, or emotional condition, do you have serious difficulty concentrating, remembering, or making decisions No 06/04/2015 3:23 PM EDT Kellie Matt RN [facility] Clinical Notes 02-17-2011 to 08-03-2025 Patient InstructionsLaila Ramos MD - 04/10/2025 3:20 PM EDTTelephone Encounter - Chloé Farrell APRN.CNP - 02/14/2025 10:02 AM EDTTelephone Encounter - Kanchan Benjamin - 02/13/2025 3:35 PM EDT Note Date & Type Note Facility 08-03-2025 Radiology Diagnostic study note [facility] Imaging Services [address] [place] [address] [id number] Esophagus Dual Contrast MR#: [id number] Acct: [id number] Name: JAQUIEVELIA Shen Shetty Rep #: [id number] : 1940 M 84 From: Bharathi Ward MD PCP: Dr. Laila Ramos MD Status: RE G CLI Study:Esophagus Dual Contrast Date of Exam: 08/03/25 Exam# [id number] Ordering Dr: Chad Mcnamara EXAM: Esophagram barium [...] Unremarkable air-contrast esophagram barium swallow. Reading Location: [place] [address] CC: Dr. Laila Ramos MD; KERRY Parmar ~ Scuba Diving Teacher: Signed [facility] 07-25-2025 Note HNO ID: [id number] Author: LAILA RAMOS MD Service: ? Author [...] He was evaluated by Dr. Mcnamara at [facility], who performed a nasal endoscopy that was [...] 5 mg by mouth once daily. glucosamine/msm/chondrt/C/hyal ([id number]-JUJ ORAL) Take by mouth. MV with Pks-Zuwqbofs-Jmbkby (CENTRUM SILVER) 0.4-300-250 mg-mcg-mcg tab Take 1 [...] and dissolving i (more content not included)... [facility] 04-10-2025 Instructions Laila Ramos MD - 04/10/2025 [...] cough, and keep using Singulair and your qdzp-wvv-gvnengr magnesium oxide (take 1 tablet daily). Lab [...] ongoing prostate management. documented in this encounter [facility] 04-10-2025 History of Present illness Narrative This note was created using [employer]. Subjective Evelia Nails Jr. is a 84 [...] 5 mg by mouth once daily. glucosamine/msm/chondrt/C/hyal (VIRVKMSGTWF-OVHQMTZRETQ-KIK ORAL) Take by mouth. MV with Dsl-Zwgioufs-Dzayui (CENTRUM SILVER) 0.4-300-250 mg-mcg-mcg tab Take 1 [...] magnesium oxide 1 tablet daily; marked as abij-kuk-qeqcfgn on medication list. - Ordered magnesium level [...] behavioral, psychotic, or mood disturbance or anxiety ([facility]) (F03.90) - Continue Aricept as prescribed. - No new cognitive concerns reported. # Crohn's disease with complication, unspecified gastrointestinal tract location ([facility]) (K50.919) - Condition stable on current medications. - No new gastrointestinal symptoms reported. # Chronic ITP (idiopathic thrombocytopenia) ([facility]) (D69.3) - Platelet counts stable. - Continue current management. # Chronic bronchitis, unspecified chronic bronchitis type ([facility]) (J42) - Recent episode of [...] symptoms worsen. # PAF (paroxysmal atrial fibrillation) ([facility]) (I48.0) Stable on current meds. No changes. No symptoms of recurrence on Cardizem and Inderal. # Encounter for long-term current use of medication (Z79.899) - Refilled prescriptions for sertraline, lansoprazole, and Flomax. - Adjusted Flomax dosage to 0.4 mg BID. - Reviewed and updated medication list, including offw-krp-gnvweep magnesium oxide. Laila Ramos MD Recording using [employer] software for draft documentation of the visit was discussed with the patient/authorized sales representative leather goods; all questions welcomed and answered. Patient/authorized sales representative leather goods agreed to proceed documented in this encounter [facility] 04-10-2025 Note HNO ID: [id number] Author: LAILA RAMOS MD Service: ? Author Type: Physician Type: Progress Notes Filed: 04/10/2025 16:03 Note Text: This note was created using SkillSurveyriter. Subjective Evelia Nails Jr. is a 84 [...] 5 mg by mouth once daily. glucosamine/msm/chondrt/C/hyal (PCRZXTGDOBV-SWSMTPYCLBG-QAC ORAL) Take by mouth. MV with Imn-Mnixzvdy-Zcvhls (CENTRUM SILVER) 0.4-300-250 mg-mcg-mcg tab Take 1 [...] oz) No nneka (more content not included)... [facility] 02-14-2025 Telephone encounter Note This was discontinued with last visit and his metoprolol was increased. Refill not sent. [facility] 02-14-2025 Miscellaneous Notes This was discontinued with [...] you. Kanchan Benjamin. documented in this encounter [facility] 02-13-2025 Telephone encounter Note Last OV 11/20/24 Next OV 03/23/25 [facility] 02-13-2025 Telephone encounter Note Patient has been [...] found Please advise. Thank you. Kanchan Benjamin. [facility] 12-15-2024 Telephone encounter Note The following approved medication requests have been transmitted electronically. Requested Prescriptions Pending Prescriptions Disp Refills sucralfate (CARAFATE) 1 gram tablet 360 tablet 1 Sig: Take 1 tablet by mouth two times a day. Laila Ramos MD [facility] 12-15-2024 Miscellaneous Notes The following approved medication [...] 2024 11:39 AM documented in this encounter [facility] 12-15-2024 Telephone encounter Note The rx for carafate would be needed. The rx for cardizem was sent at 11/20/24 appt. Message left to pt to contact the pharmacy for that rx to be sent. [facility] 12-15-2024 Telephone encounter Note Prescription Refill Information [...] Carola Moura December 15, 2024 11:39 AM [facility] 11-20-2024 Instructions Laila Ramos MD - 11/20/2024 [...] 120 mg once daily; prescription sent to [facility] with 90-day supply and three refills. - Refill BuSpar, Aricept, Folic Acid, Lialda, Singulair, and Zoloft; prescriptions sent to [facility] with instructions to fill when due. - [...] review all the medicines you take, even czfe-gcy-pdfebse medicines. As you get older, the way [...] certain medical conditions. documented in this encounter [facility] 11-20-2024 Note HNO ID: [id number] Author: LAILA RAMOS MD Service: ? Author Type: Physician Type: Progress Notes Filed: 11/20/2024 11:42 Note Text: This note was created using SkillSurveyriter. Subjective Evelia Nails Jr. is a 84 [...] is not currently following up with a project portfolio analyst. He also takes Cardizem 120 mg daily, [...] not yet designated a healthcare power of attorney lawyer. He is considering updating his living will [...] mouth daily a (more content not included)... [facility] 11-20-2024 History of Present illness Narrative Images from the original note were not included. This note was created using SkillSurveyriter. Subjective Evelia Nails Jr. is a 84 [...] is not currently following up with a project portfolio analyst. He also takes Cardizem 120 mg daily, [...] not yet designated a healthcare power of attorney lawyer. He is considering updating his living will [...] 5 mg by mouth once daily. glucosamine/msm/chondrt/C/hyal (VOQNUDAGRVT-NFQYOOKJDDB-ZVU ORAL) Take by mouth. MV with Kno-Yjuibyab-Gglred (CENTRUM SILVER) 0.4-300-250 mg-mcg-mcg tab Take 1 [...] Outside specialists seen: Urology--Dr. Hairston, GI--Dr. Trujillo, [facility]--Dr. Kimo Boucher, Ophthalmology--Dr. Maria Victoria Sinclair, Retinal [...] medication adjustment. # PAF (paroxysmal atrial fibrillation) ([facility]) (I48.0) - No recent episodes of atrial fibrillation reported. - Continue current management with metoprolol and Cardizem 120 mg daily. - Refilled Cardizem prescription with 90-day supply and three refills. # Major depressive disorder with single episode, in full remission ([facility]) (F32.5) - Depression in remission; patient reports minimal depressive symptoms. - Continue Zoloft; refill scheduled for March. # Crohn's disease of both small and large intestine without complication ([facility]) (K50.80) - Condition stable; continue [...] Laila Ramos MD documented in this encounter [facility] 11-14-2024 Telephone encounter Note Susan with [facility] called to let you know they d/c pt from home care. Pt going to start out outpt Therapy. Chanelle Peguero LPN [facility] 11-14-2024 Miscellaneous Notes Susan with [facility] called to let you know they d/c pt from home care. Pt going to start out outpt Therapy. Chanelle Peguero LPN documented in this encounter [facility] 11-10-2024 Telephone encounter Note Order faxed to [facility] as instructed. [facility] 11-10-2024 Miscellaneous Notes Order faxed to [facility] as instructed. ok Thomas- OT- [facility]- returned call and given provider's message. Thomas reports patient had a left shoulder arthroplasty reverse procedure. Please fax order to [facility]. Called and left a detailed voicemail notifying Thomas KWAN from [facility] of providers message. Clinic phone number was left for him to call and answer providers question. Torri Matute RN OT for what problem? OK, just need diagnosis they wnt to treat Thomas OT from [facility] calls and is requesting an order for outpatient occupational therapy. Thomas requesting order to be faxed to [facility]. Estrellita Ortega RN documented in this encounter [facility] 11-10-2024 Telephone encounter Note ok [facility] 11-10-2024 Telephone encounter Note Thomas- OT- [facility]- returned call and given provider's message. Thomas reports patient had a left shoulder arthroplasty reverse procedure. Please fax order to [facility]. [facility] 11-09-2024 Telephone encounter Note Called and left a detailed voicemail notifying Thomas OT from [facility] of providers message. Clinic phone number was left for him to call and answer providers question. Torri Matute RN [facility] 11-09-2024 Telephone encounter Note OT for what problem? OK, just need diagnosis they wnt to treat [facility] 11-09-2024 Telephone encounter Note Thomas OT from [facility] calls and is requesting an order for outpatient occupational therapy. Thomas requesting order to be faxed to [facility]. Estrellita Ortega RN [facility] 11-06-2024 Telephone encounter Note Does that mean they have not gone out yet? If so, noted. [facility] 11-06-2024 Miscellaneous Notes Does that mean they have not gone out yet? If so, noted. Thomas OT from [facility] calls and states that OT has been having issues going out to see patient for OT evaluation. OT is going to evaluate patient today. Call if there is any questions. Estrellita Ortega RN documented in this encounter [facility] 11-06-2024 Telephone encounter Note Thomas OT from [facility] calls and states that OT has been having issues going out to see patient for OT evaluation. OT is going to evaluate patient today. Call if there is any questions. Estrellita Ortega RN [facility] 11-03-2024 Telephone encounter Note Left providers message on secure voicemail and ask to call office and ask to speak to a nurse with any questions or concerns [facility] 11-03-2024 Miscellaneous Notes Left providers message on secure voicemail and ask to call office and ask to speak to a nurse with any questions or concerns OK Joan with [facility], PT calling to let you know they received orders for PT. Pt had left total shoulder arthoplasty done. Dr. Francisco will follow for ortho and they are checking to see if you will follow for medical. Please advise Joan back with verbal order. Chanelle Peguero LPN documented in this encounter [facility] 11-03-2024 Telephone encounter Note OK [facility] 11-03-2024 Telephone encounter Note Joan with [facility], PT calling to let you know they received orders for PT. Pt had left total shoulder arthoplasty done. Dr. Francisco will follow for ortho and they are checking to see if you will follow for medical. Please advise Joan back with verbal order. Chanelle Peguero LPN [facility] 11-02-2024 Telephone encounter Note Em did have for appt. [facility] 11-02-2024 Miscellaneous Notes Em did have for appt. Noted--make sure available for the appointment with Em Sulema from [facility] calling she will be faxing a medication list to the office of the medications patient was taking at [facility]. computer shows patient has discharge follow up appt scheduled for with Em Romero NP. documented in this encounter [facility] 11-02-2024 History of Present illness Narrative SUBJECTIVE: [...] Has home health care coming out from [facility], expects first visit on Wednesday. He reports [...] 5 mg by mouth once daily. glucosamine/msm/chondrt/C/hyal (CTZWBYHELRB-RBRYRYEYFNJ-HWZ ORAL) Take by mouth. MV with Hjr-Bzoygctz-Odarca (CENTRUM SILVER) 0.4-300-250 mg-mcg-mcg tab Take 1 [...] month follow-up visit with PCP. Em Romero APRN.STAVE CUTTING SUPERVISOR Medical Decision Making: Problems: Low: Acute, uncomplicated illness or injury Moderate: 2+ stable chronic illnesses Data: Unique source(s) for external note(s) reviewed: 1 Risk: Moderate: Drug management Medical Decision Making Level: 4 - Moderate documented in this encounter [facility] 11-02-2024 Note HNO ID: [id number] Author: EM ROMERO APRN.STAVE CUTTING SUPERVISOR Service: ? Author Type: Nurse Specialist [...] Has home health care coming out from [facility], expects first visit on Wednesday. He reports [...] focal deficit present. (more content not included)... [facility] 11-01-2024 Telephone encounter Note Noted--make sure available for the appointment with Em [facility] 10-31-2024 Telephone encounter Note Sulema from [facility] calling she will be faxing a medication list to the office of the medications patient was taking at [facility]. computer shows patient has discharge follow up appt scheduled for with Em Romero CRISIS MANAGER. [facility] 10-28-2024 Nurse Progress note Nursing GG Entered On: 10/28/2024 11:48 EST Performed On: 10/28/2024 11:48 EST by Ramakrishna Erazo RN Nursing GG's OT GG Grid Eating : Independent Oral Hygiene : Independent Toilet Hygiene : Independent Toilet Transfer : Independent Ramakrisnha Erazo RN - 10/28/2024 11:48 EST Digitally Signed by Ramakrishna Erazo RN on 10/28/2024 11:48 AM [facility] 10-28-2024 Note Discharge Instructions Thank you for allowing [facility] to assist you with your healthcare needs. The following is important discharge information regarding your hospital visit. Your Care Team LAILA RAMOS MD Your Diagnosis Arthritis BPH with obstruction/lower urinary tract symptoms HTN (hypertension) S/p reverse total shoulder arthroplasty What to do next Follow Up Appointments Follow Up with TYLER HAIRSTON MD, Urology Service Where:[address] [place] [address]- [phone] Additional Information: Urology, Left a voicemail with the nurse line, please schedule this follow up appointment - Follow Up with LAILA RAMOS MD When:11/02/2024 09:00 AM EST Where:[address] [place] [address]- Additional Information: PCP - Please take discharge paperwork with you to your appointment - Follow Up with NACHO ROSE, Orthopedic When:11/02/2024 10:15 AM EST Where:[address] [facility] [address] [facility], [place] [address]- Additional Information: Ortho - The Following Activity [...] Reason: Disease management Medication management, Provided by [facility] [phone]. Allergies Inderal Singulair atorvastatin penicillins Medications Please ask your primary doctor or pharmacist before taking any other medication not listed, including over the counter drugs, herbal medications, vitamins and or supplements as they may interact with your home medications. What How Much When Instructions Last Dose New cyanocobalamin (Vitamin B12 500 mcg oral tablet) 2 tab(s) by mouth Once a day Pickup at [facility]/pharmacy #[id number] New dilTIAZem (Cardizem CD 120 mg/ 24 hours oral capsule, extended release) 1 cap by mouth Once a day (in the morning) Pickup at [facility]/pharmacy #[id number] New polyethylene glycol 3350 by mouth Once a day Changed tamsulosin (tamsulosin 0.4 mg oral capsule) 2 cap by mouth Once a day (in the evening) Pickup at [facility]/pharmacy #[id number] Unchanged acetaminophen (acetaminophen 500 mg [...] (2) times a day Unchanged Misc Medication glgjdxxw-iyq-OA-lycopen-lutein 1 tab by mouth Every day Unchanged Misc Medication diltiazem HCL 120 mg/24 hr by mouth Once a day (in the morning) Unchanged Misc Medication Vitamins A,C, C-bnfl-yfaxnm ER 1 tablet by mouth Every day [...] by mouth Once a day Pharmacy Information [facility]/pharmacy #[id number]: [address] [place], [place] [phone] Please take this list to your next [...] Keep items that you use often in nvaq-tg-ocrru places. Lower the shelves around your home [...] of the way. Do not use floor russian or wax that makes floors slippery. If [...] for Disease Control and PreventionJAMIE: https://cdc.gov National [place] on Aging: https://rq6vnhx.asher.nih.gov Contact a doctor if: You are afraid [...] 09/11/2010 Document Revised: 03/07/2020 Document Reviewed: 06/30/2018 [employer] Patient Education 2020 [employer] Arthritis Arthritis means joint pain. It [...] Follow these instructions at home: Medicines Take vhoc-mwm-amffbqp and prescription medicines only as told by [...] 02/09/2011 Document Revised: 10/23/2019 Document Reviewed: 10/23/2019 [employer] Patient Education 2020 [employer]. Shoulder Joint Replacement, Care After This sheet [...] by your health care provider. Medicine Take dumn-bgg-rubdlsj and prescription medicines only as told by [...] and water are not available, use hand vice president fixed income. ? Change your dressing as told by [...] Document Reviewed: 08/30/2017 Elsevier Patient Education 2020 [employer] Additional Information VACCINATE! IT SAVES LIVES! Members of the community who have not yet received the COVID-19 vaccine and would like to receive it can visit one of [facility] vaccine clinics. There are many vaccine clinic locations within the [facility]. For locations and available times, please visit https://gettheshot.coronavirus.[place].gov/. It is important to note that some COVID mobile vaccine clinics are held outdoors and may be canceled in rainy or stormy conditions. To learn more about pediatric vaccinations (ages 5-11), we invite you to visit the [facility] webpage. https://www.[facility].org/pag es/5292-Tgaba-Tjwzwipgegp-Frequent ps-Knfvb-Kjgnmimvk.html To learn more about the COVID-19 vaccine, we invite you to visit the CDC website for a list of frequently asked questions.https://www.cdc.gov/elias navirus/2019-ncov/vaccines/faq.htm l [facility] Patient Portal Access Instructions: Stay connected with your healthcare team and access your personal medical information anytime with the [facility] Patient Portal. Please follow the directions below to create your [facility] account: 1.Access the email account you provided upon registration to the hospital/physician office.2.Look for an invitation email from [facility].3.Open the email and access the invitation link: Accept Invitation to [facility].4.Fill in the required briceño to create your account. To access your account, visit [email or web address]. Click the blue button labeled Access Patient [...] you will allow to register on the [facility] Patient Portal for access to your information. You can also access the [facility] Patient Portal on the [employer] gabriela. Simply click on Patient Portal and then log into your account. If you would like to receive a full copy of your medical records, please contact the [facility] Medical Records Department by calling [phone], Wednesday through Wednesday between 8 a.m. and [...] Call your local pharmacy or go to [email or web address].Jukely/[email or web address] to find one close to you.3.Make use of household items: Use cat litter or old coffee grounds to dispose medications if other options are not available. Mix your drugs with these household products, seal them in an airtight container and throw it into the garbage. Call [facility]: [phone] to be sure your drugs can be [...] Materials Fall Prevention in the Home, Adult, Gcbc-xs-Ydyg Arthritis, Rzbz-me-Acxd Shoulder Joint Replacement, Care After Medication Leaflets My discharge plan and instructions have been reviewed and explained to me and JAQUI Velásquez JAMES E understand my current condition and have read and understand these discharge instructions. I have received a written copy of the plan/instructions. If I have questions, I am aware that I should contact my doctor. Patient/Referral Agent Signature: Date/Time: Relationship to Patient: ___ Witness Name/Signature: Date/Time: Justinviki Gillespien 10-28-2024 Telephone encounter Note Phoned and got operations research scientist for [facility] and was transferred to nurse Frederick and went over notes from Dr Ramos with understanding. [facility] 10-28-2024 Miscellaneous Notes Phoned and got operations research scientist for [facility] and was transferred to nurse Frederick and went over notes from Dr Ramos with understanding. Tried to call number, but office closed. customs compliance analyst for Hospice takes calls. Patient not on office so did not talk to them. Will follow and cover Home Care--see if can call someone on Wednesday AM Cesilia calling again needing to know if will cover home care . They are wanting to start care on Wednesday? Please review and advise. Kendy Frnaco LPN Cesilia from [facility] calling to report that patient will be discharged from [facility] on 10/28/2024, related to diagnosis of Reverse total shoulder surgery. [facility] is requesting orders for mcc, physical therapy, occupational therapy, and home health aide and is asking if PCP will follow? Please call Cesilia at [facility] at # [phone] extension [phone], if PCP agreeable to follow. Estrellita Ortega, RN documented in this encounter [facility] 10-27-2024 Nurse Progress note Nursing GG Entered [...] Supervision/Touching Assist Sit to stand : Independent Chair/epi-br-gbxcd transfer : Supervision/Touching Assist Walk 10 ft : Supervision/Touching Assist Susan Baum RN - 10/27/2024 21:46 EST Digitally Signed by Susan Baum RN on 10/27/2024 09:46 PM [facility] 10-27-2024 Telephone encounter Note Tried to call number, but office closed. customs compliance analyst for Hospice takes calls. Patient not on office so did not talk to them. Will follow and cover Home Care--see if can call someone on Wednesday AM [facility] 10-27-2024 Telephone encounter Note Cesilia calling again needing to know if will cover home care . They are wanting to start care on Wednesday? Please review and advise. Kendy Franco LPN [facility] 10-27-2024 Nurse Progress note Nursing GG Entered On: 10/27/2024 9:55 EST Performed On: 10/27/2024 9:54 EST by Anastacia Britton RN Nursing GG's OT GG Grid Eating : Set up & Clean up Oral Hygiene : Independent Toilet Hygiene : Independent Toilet Transfer : Independent Upper Body Dressing : Supervision/Touching Assist Lower Body Dressing : Independent Sit to stand : Independent Chair/sny-zk-rkruy transfer : Independent Anastacia Britton RN - 10/27/2024 9:54 EST Digitally Signed by Anastacia Britton RN on 10/27/2024 09:54 AM [facility] 10-25-2024 Hospital Discharge instructions Patient Education 10/25/2024 18:10:44 Fall Prevention in the Home, Adult, Utxq-qf-Wosf Fall Prevention in the Home, Adult Falls [...] Keep items that you use often in jitu-jr-agcio places. Lower the shelves around your home [...] of the way. Do not use floor russian or wax that makes floors slippery. If [...] for Disease Control and PreventionJAMIE: https://cdc.gov National [place] on Aging: https://pt4argz.asher.nih.gov Contact a doctor if: You are afraid [...] 09/11/2010 Document Revised: 03/07/2020 Document Reviewed: 06/30/2018 [employer] Patient Education 2020 [employer] 10/25/2024 18:10:29 Arthritis, Cqmg-tk-Qmdt Arthritis Arthritis means joint pain. It can [...] Follow these instructions at home: Medicines Take dljq-pbi-njqmivq and prescription medicines only as told by [...] 02/09/2011 Document Revised: 10/23/2019 Document Reviewed: 10/23/2019 [employer] Patient Education 2020 [employer]. 10/25/2024 18:10:10 Shoulder Joint Replacement, Care After [...] by your health care provider. Medicine Take oigc-bre-jcdexmu and prescription medicines only as told by [...] and water are not available, use hand vice president fixed income. ?Change your dressing as told by your [...] 06/04/2006 Document Revised: 03/08/2020 Document Reviewed: 08/30/2017 [employer] Patient Education 2020 [employer]. Follow Up Care 10/16/2024 15:50:39 With:TYLER HAIRSTON MD, Urology Service Address: [address] [place] [address] [address] [place] [address] [phone] When: Unknown Comments:Urology, Left a voicemail with the nurse line, please schedule this follow up appointment - With:NACHO ROSE, Orthopedic Address: [address] [place] [address] [address] [facility], [place] [address]- When:11/02/2024 10:15:00 Comments:Ortho - With:LAILA RAMOS MD Address: [address] [place] [address]- When:11/02/2024 09:00:00 Comments:PCP - Please take discharge [...] DO on 10/25/2024 01:21 PM [facility] 10-25-2024 Telephone encounter Note Cesilia from [facility] calling to report that patient will be discharged from [facility] on 10/28/2024, related to diagnosis of Reverse total shoulder surgery. [facility] is requesting orders for mcc, physical therapy, occupational therapy, and home health aide and is asking if PCP will follow? Please call Cesilia at [facility] at # [phone] extension [phone], if PCP agreeable to follow. Estrellita Ortega RN [facility] 10-25-2024 Note Subjective Patient states he is [...] sling in place. Neurovascular check intact. VITALS YgvnttAgbvALZmvdlOVFlP3NRH4ZnfvSz( kg) 10/25 02:0136.4--[id number] 10/24 21:0836.6--[id number] 10/24 17:02----62----RA 10/24 10:01----82----RA 10/24 09:5336.5--[id number] 24 Hr Tmax: 36.6 at 10/24 21:08 [...] Active IV Meds: None Problems (6) Arthritis (8306867) Colitis (753258513) Fall (on) (from) other stairs and steps, initial encounter (510932895) HTN (hypertension) (9989212199) Macular degeneration (3189833651) Occasional tremors (53747468) ASSESSMENT/PLAN: Left shoulder dislocation failed conservative treatment [...] Skin: Left arm brace/sling in place VITALS GwblpuNibgSSIjenlYZTbC1QNF0KznsNl( kg) 10/24 06:0036.5--75--93RA10/17 92.8 10/23 21:4536.8--673388AO02/19 94.0 10/23 17:36----65----RA 10/23 10:21----85----RA 10/23 10:0336.6--288988VP 24 Hr Tmax: 36.8 at 10/23 21:45 [...] Active IV Meds: None Problems (6) Arthritis (6264450) Colitis (985825456) Fall (on) (from) other stairs and steps, initial encounter (331434404) HTN (hypertension) (9083600811) Macular degeneration (7331742701) Occasional tremors (51720621) ASSESSMENT/PLAN: Left shoulder dislocation failed conservative treatment [...] Daily, 0 Refill(s). Misc Medication: Vitamins A,C, M-bfyg-gogdsz ER 1 tablet, Oral, Daily, 0 Refill(s). Misc Medication: uzpzcetx-dtd-TU-lycopen-lutein 1 tab, Oral, Daily, 0 Refill(s). montelukast: [...] Rate60(OCT 23 21:45)60(OCT 23 21:45)85(OCT 23 10:21) FVO372(OCT 24 06:00)108(OCT 23 10:03)124(OCT 24 06:00) DBP62(OCT [...] no CVA tenderness, no bladder distention. VITALS SgemgdNjmdKPDvqnjHFEjW1NMZ8OxbfDn( kg) 10/23 17:36----65------10/17 92.8 10/23 10:21----85------10/17 94.0 10/23 10:0336.6--328551AB53/18 94.0 10/23 00:3036.6--842762GR 10/22 16:36----62----RA 24 Hr Tmax: 36.6 at [...] Active IV Meds: None Problems (6) Arthritis (6753915) Colitis (109130225) Fall (on) (from) other stairs and steps, initial encounter (078157799) HTN (hypertension) (3125684955) Macular degeneration (5740083643) Occasional tremors (77432640) ASSESSMENT/PLAN: Left shoulder dislocation failed conservative treatment [...] set for 10/28. Continue to work with forensic social worker for safe discharge planning. Medications reviewed and [...] EXAMINATION: 3 XRAY VIEWS OF THE LEFT WUQDIVGN48/25/2024 12:20 pm COMPARISON: None HISTORY: ORDERING SYSTEM [...] Daily, 0 Refill(s). Misc Medication: Vitamins A,C, G-ihzb-beqrjg ER 1 tablet, Oral, Daily, 0 Refill(s). Misc Medication: ankbovnj-mri-FM-lycopen-lutein 1 tab, Oral, Daily, 0 Refill(s). montelukast: [...] Heart Rate60(OCT 23:30)60(OCT 22 08:57)62(OCT 22 16:31) NBA893(OCT 23:30)109(OCT 22:31)118(OCT 22 08:57) DBP62(OCT 23:30)L 58(OCT [...] This is an 83-year-old male admitted to [facility] inpatient rehab unit with recent hospitalization at [facility] from 10/12 - 10/17. In May, [...] was deemed medically stable and transferred to [facility] inpatient rehab unit for physical and occupational [...] Daily, 0 Refill(s). Misc Medication: Vitamins A,C, Q-xfgc-ishtlo ER 1 tablet, Oral, Daily, 0 Refill(s). Misc Medication: hunqzcnw-gln-BZ-lycopen-lutein 1 tab, Oral, Daily, 0 Refill(s). montelukast: [...] mg, 1 tab(s), Oral, BID. Misc Medication: rseqsiln-abc-MF-lycopen-lutein 1 tab, Oral, Daily. Misc Medication: cyanocobalamin 1000 mcg/ml drops - 1000 mcg, Oral, Daily. Misc Medication: diltiazem HCL 120 mg/24 hr, Oral, qAM. Misc Medication: Vitamins A,C, R-tovq-etsuvs ER 1 tablet, Oral, Daily. Review of [...] Psychiatric: Mood good. No anxiety or depression Obyhsbtymgw12.2 (05:10) Systolic Blood Pdqcyqpc27 (05:10) Diastolic Blood Fbunvpaw33 (05:10) Pulse60 (05:10) YtQ928 (05:10) Respiratory RateNo result No 36hr Lab [...] is both accurate and complete. [facility] 11-20-2024 Physical medicine and rehab History and physical note Acute Inpatient Rehab History and Physical Date of Service: 10/18/2024 Date of Admission: 10/17/2024 Attending Physician: Dr. [facility] 08.9 Etiologic Diagnosis Other Ortho, reverse left total shoulder History of Present Illness This is an 83-year-old male [facility]. In May, [...] was deemed medically stable and transferred [facility] for physical and occupational therapy as [...] Daily, 0 Refill(s). Misc Medication: Vitamins A,C, D-sjqc-ztfwvy ER 1 tablet, Oral, Daily, 0 Refill(s). Misc Medication: cvhayjca-wqd-MS-lycopen-lutein 1 tab, Oral, Daily, 0 Refill(s). montelukast: [...] mg, 1 tab(s), Oral, BID. Misc Medication: jwtjmtgk-lcy-ML-lycopen-lutein 1 tab, Oral, Daily. Misc Medication: cyanocobalamin 1000 mcg/ml drops - 1000 mcg, Oral, Daily. Misc Medication: diltiazem HCL 120 mg/24 hr, Oral, qAM. Misc Medication: Vitamins A,C, U-yqyx-djzhsk ER 1 tablet, Oral, Daily. Review of [...] Psychiatric: Mood good. No anxiety or depression Azqejninzrv81.2 (05:10) Systolic Blood Mxydudvt43 (05:10) Diastolic Blood Qmboaqoq49 (05:10) Pulse60 (05:10) KwK114 (05:10) Respiratory RateNo result No 36hr Lab [...] QUINTIN KAY DO on 10/18/2024 01:04 PM [place] [id number] Physical medicine and rehab Consult note INPATIENT REHAB HISTORY AND PHYSICAL CONSULTATION DATE OF ADMISSION: 10/17/2024 CC: Left reverse total shoulder arthroplasty Admission History and Physical HISTORY OF PRESENT ILLNESS: This is a 83-year-old male noted to [facility] re[facility] from [facility] stay 10/12 - 10/17 who has a [...] Patient was the medically stable transferred [facility] Therapy as [...] Daily, 0 Refill(s). Misc Medication: Vitamins A,C, V-adyu-tqmxku ER 1 tablet, Oral, Daily, 0 Refill(s). Misc Medication: txtwhqng-eso-PN-lycopen-lutein 1 tab, Oral, Daily, 0 Refill(s). montelukast: [...] mg, 1 tab(s), Oral, BID. Misc Medication: shnxoosd-qfz-GU-lycopen-lutein 1 tab, Oral, Daily. Misc Medication: cyanocobalamin 1000 mcg/ml drops - 1000 mcg, Oral, Daily. Misc Medication: diltiazem HCL 120 mg/24 hr, Oral, qAM. Misc Medication: Vitamins A,C, B-dimz-vdyqqd ER 1 tablet, Oral, Daily. REVIEW OF [...] during acute rehabilitation stay at [facility] with the goal [...] EVELIA YIP DO on 10/19/2024 08:56 AM [place] [id number] [facility] Medical Records Department [address] [place] [address] Discharge Summary 10/17/24 1149 MR#: [id number] Acct: [id number] Name: EVELIA NAILS Jr. Rep #: [id number] : 1940 83 From: [facility] PAYNE PCP: Dr. Laila Ramos MD Status:ADM LEONARDO Location: [place] [address] Providers Date of Admission: 10/12/24 Primary Care [...] release 30 mg PO BID gerd 08/30/15 fdjemral-xkl-sribc acid 0.4 mg-lycopene 300 mcg-lutein 250 mcg tablet 1 ea PO DAILY supplement 08/30/15 sertraline 100 mg tablet 200 mg PO DAILY depression 08/30/15 vit A 7,160 unit-C 113 mg-E 100 siuv-ebzr-uijayp tablet,delayed rel. 2 ea PO DAILY eye [...] neurovascularly intact to right (more content not included)...[facility]11-06-2024 History of Present illness Narrative* Lili Hawk MD - 10/04/2024 2:46 PM EST [facility] - NEW PATIENT EVALUATION Primary Care Provider: Laila Ramos MD [address] [facility] [address] Dear Laila Ramos MD: I had the pleasure of evaluating Mr. Nails in our clinic today. As you know he is a 83 year old left-handed male who presents for evaluation of tremors since many years . Subjective HISTORY OF PRESENT ILLNESS: Initial HPI Tremors started 30-40 years ago. Saw neurologist in [place], diagnosed with Parkinson's. Eight years later PCP [...] 5 mg by mouth once daily. glucosamine/msm/chondrt/C/hyal (CGMIZPFJUBH-ZYGNPKZBHHT-VFR ORAL) Take by mouth. MV with Vgp-Hxzticpx-Ecfenl (CENTRUM SILVER) 0.4-300-250 mg-mcg-mcg tab Take 1 [...] 1+ 1+ Achilles Tr Tr Coordination Right: Eouqxr-sr-iaru normal. Rapid alternating movement normal.Left: Bvypqc-oo-maou normal. Rapid alternating movement normal. Movement Disorders [...] Medication Schedule: Medications Level of service : 25222 (45-59 min). Time spent 60 min on the day of service, which included preparing to see the patient, zqwb-kw-kjzu patient care, completing clinical documentation, obtaining and/or [...] Sincerely, Lili Hawk MD documented in this encounterMer[facility]11-04-2024 Telephone encounter Note * Telephone Encounter - Korina Barber LPN - 10/02/2024 2:56 PM EST Records have been faxed along with clearance form. [facility]11-04-[facility] Miscellaneous Notes* Telephone Encounter - Korina Barber LPN - 10/02/2024 2:56 PM EST Records have been faxed along with clearance form. * Telephone Encounter - Chloé Farrell APRN.CNP - 10/02/2024 12:12 PM EST We were waiting on records from [facility], now that we have those please fax information. * Telephone Encounter - Ana Gayle RN - 10/02/2024 11:49 AM EST Hallie calling form [facility]. Pt scheduled to have left reverse total shoulder arthroplasty done on 10/12/[address] Francisco with [facility] at [facility]. Hallie states she still has not received pre-op eval information, EKG and clearance for patient. Asking if there is an update for this patient so they can proceed? EKG was completed at [facility], per patient. Please call Hallie back at [phone], option 6. Ana Gayle RN documented in this encounterMercy Health Will[facility] Hospital11-04-2024 Telephone encounter Note * Telephone Encounter - Chloé Farrell APRN.CNP - 10/02/2024 12:12 PM EST We were waiting on records from [facility], now that we have those please fax information. [facility]11-04-[facility] Telephone encounter Note* Telephone Encounter - Ana Gayle RN - 10/02/2024 11:49 AM EST Hallie calling form [facility]. Pt scheduled to have left reverse total shoulder arthroplasty done on 10/12/[address] Francisco with [facility] at [facility]. Hallie states she still has not received pre-op eval information, EKG and clearance for patient. Asking if there is an update for this patient so they can proceed? EKG was completed at [facility], per patient. Please call Hallie back at [phone], option 6. Ana Gayle RN [facility]10-28[facility] History of Present illness Narrative* Chloé Farrell APRN.LIVESTOCK SPECULATOR - 09/25/2024 2:22 PM EDT SUBJECTIVE Evelia [...] by Dr. Francisco with [facility] at [facility]. History of having anesthesia: Yes. Any reaction from anesthesia in the past: No. Personalhistory of heart disease: No. Plans for care after surgery: overnight stay, considering rehab. Chronic diseases controlled: Yes. Currently taking a blood thinner: No. Patient denies chest pain, SOB, dizziness, palpitations, one sided weakness, dropping of face or mouth, fever, or recent sickness. No history of CVA or OK. Labs, chest xray, EKG to be reviewed. [...] 5 mg by mouth once daily. glucosamine/msm/chondrt/C/hyal (ABBWAASOXON-GHKRERNZIAP-SUO ORAL) Take by mouth. MV with Mat-Eqmbagaw-Juabov (CENTRUM SILVER) 0.4-300-250 mg-mcg-mcg tab Take 1 [...] Elbow - 08/16/2012 Chronic Itp (Idiopathic Thrombocytopenia) ([facility]) - 07/25/2012 Trochanteric Bursitis - 04/26/2012 Sciatica - 04/26/2012 Arthritis of Knee - 04/26/2012 Paf (Paroxysmal Atrial Fibrillation) ([facility]) - 05/24/2011 Metabolic Syndrome - 02/16/2011 Ibs (Irritable Bowel Syndrome) - 02/16/2011 Dizziness - 09/12/2010 Comment: 01/11/09 Michi Hayes MD [facility]- disequilibrium; chronic sinusitis; to f/u with [...] Carpal Tunnel Syndrome - 01/07/2006 Regional Enteritis ([facility]) - 07/16/2005 Inguinal Hernia Without Mention of Obstruction Or Gangrene, Unilateral Or Unspecified, (Not Specified As Recurrent) - 07/16/2005 Hemorrhage of Gastrointestinal Tract, Unspecified - 07/16/2005 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 Francisco with [facility] at [facility]. 2. Chronic left shoulder pain - [...] appointment.. Chloé Farrell APRN-JONATHON documented in this encounterMercy [facility]08-05-2024 History of Present illness Narrative* Laila Ramos MD - 07/03/2024 4:50 PM EDT This note was created using [employer]. Subjective Evelia Nails Jr. is a 83 [...] 5 mg by mouth once daily. glucosamine/msm/chondrt/C/hyal (EIVVEHDVKDT-ZKCKAIBULDH-GBT ORAL) Take by mouth. MV with Cqg-Btimzxjj-Ejaimy (CENTRUM SILVER) 0.4-300-250 mg-mcg-mcg tab Take 1 [...] sleep. Laila Ramos MD documented in this encounterMercy Health [facility]07-18-2024 History of Present illness Narrative* Laila Ramos MD - 06/15/2024 2:49 PM EDT This note was created using [employer]. Subjective Evelia Nails Jr. is a 83 [...] Noted needs eye appointment next week in [place] and with neurologist in [place]. Discussed PPI and dementia that he heard [...] 5 mg by mouth once daily. glucosamine/msm/chondrt/C/hyal (OWXXOHEEFFM-EWPTTNMXYNY-IYQ ORAL) Take by mouth. MV with Gms-Hgpdkscy-Yxnlwb (CENTRUM SILVER) 0.4-300-250 mg-mcg-mcg tab Take 1 [...] left shoulder, subsequent encounter S43.015D Treated at [facility]; will see about sooner appointment with [...] sleep. Laila Ramos MD documented in this encounterMercy Health [facility] Hospital06-12-2024 Telephone encounter Note * Telephone Encounter - [...] is a valid prescription at the pharmacy Liala Ramos MD [facility]06-12-[facility] Miscellaneous Notes* Telephone Encounter - Laila Ramos [...] Thank you. Danuta Wade. documented in this encounterMercy Health Will[facility] Hospital06-11-2024 Telephone encounter Note * Telephone Encounter - [...] 07/03/2024 Please advise. Thank you. Danuta Wade. [facility]05-14-[facility] Telephone encounter Note* Telephone Encounter - Fransisca Park LPN - 04/11/2024 3:35 PM EDT Spoke to Evelia, he has an RX for Carafate 01/10/2024, x180 tablets, 3 refills. Patient does have RX at [facility]. Patient to contact pharmacy for refill. Fransisca Park LPN [facility]05-14-2024 Miscellaneous Notes* Telephone Encounter - Fransisca Park LPN - 04/11/2024 3:35 PM EDT Spoke to Evelia, he has an RX for Carafate 01/10/2024, x180 tablets, 3 refills. Patient does have RX at [facility]. Patient to contact pharmacy for refill. Fransisca Park LPN documented in this encounterMercy Health [facility]05-01-2024 Telephone encounter Note * Telephone Encounter - [...] Scripts. Please advise. Thank you. Danuta Wade. [facility]05-01-[facility]24 Miscellaneous Notes* Telephone Encounter - Danuta Wade [...] Thank you. Danuta Wade. documented in this encounterMercy Health [facility] Hospital04-11-2024 Miscellaneous Notes* Telephone Encounter - Zunilda Gray [...] Thank you. Zunilda Cosme. documented in this encounterMercy Health Willard Hospital03-21-2024 History of Present illness Narrative* Em Romero APRN.STAVE CUTTING SUPERVISOR - 02/17/2024 2:00 PM EDT SUBJECTIVE: [...] (Irritable Bowel Syndrome) Paf (Paroxysmal Atrial Fibrillation) ([facility]) Trochanteric Bursitis Sciatica Arthritis of Knee Chronic Itp (Idiopathic Thrombocytopenia) ([facility]) Ulnar Neuropathy At Elbow Chronic Nasal Congestion S/P Tkr (Total Knee Replacement) Rebekah Type 4 Hyperlipoproteinemia Macular Degeneration Chronic Urticaria Dysthymia Chronic Nonintractable Headache Anxiety Moderate Persistent Asthma Without Complication Non-Seasonal Allergic Rhinitis Chronic Midline Low Back Pain With Left-Sided Sciatica Ddd (Degenerative Disc Disease), Lumbar Paralysis Agitans ([facility]) Mild Depression Chronic Bronchitis ([facility]) Esophageal Dysphagia Major Depressive Disorder, Single Episode, Mild ([facility]) Hypomagnesemia Ifg (Impaired Fasting Glucose) Mixed Hyperlipidemia [...] 5 mg by mouth once daily. glucosamine/msm/chondrt/C/hyal (MTIAQQIBBOT-XEUNYQVJDBO-PKC ORAL) Take by mouth. MV with Gac-Aojazxwa-Bbrsbm (CENTRUM SILVER) 0.4-300-250 mg-mcg-mcg tab Take 1 [...] 4-month follow-up visit with PCP. Em Romero APRN.STAVE CUTTING SUPERVISOR Medical Decision Making: Problems: Moderate: 2+ stable chronic illnesses Risk: Moderate: Drug management Medical Decision Making Level: 4 - Moderate documented in this encounterMercy Health Will[facility] Hospital02-13-2024 Miscellaneous Notes* Telephone Encounter - Chanelle Peguero [...] you. Rosa East LPN. documented in this encounterMercy Health Will[facility] Hospital12-21-2023 Miscellaneous Notes* Telephone Encounter - Fransisca Park LPN - 2023 11:22 AM EST Spoke to [facility] pharmacist, Patient picked up RX. Fransisca Park LPN documented in this encounterMercy Health Willard Hospital12-08-2023 Miscellaneous Notes* Telephone Encounter - Saadia Roberts Ma - 11/05/2023 12:25 PM EST Pt notified. Saadia Roberts Ma * Telephone Encounter - Chloé Farrell APRN.LIVESTOCK SPECULATOR - 11/05/2023 12:11 PM EST New scripts signed, let patient know. Thanks * Telephone Encounter - Eda Garrison, SOBEIDA - 11/05/2023 9:10 AM EST Left vm letting patient know Rx's sent to pharmacy. Looks like senior living was sent to local and short term was sent to mail order. Pended with correct pharmacies. Patient phoned back and spoke to another triage nurse (who teams messaged this nurse), and is awareRx's were sent to wrong pharmacies and is aware pcp will be notified. Attempted to cancel at [facility], but they do not open until 10 am. Will try again then. Cancelled short supply sent to . Cancelled long supply at [facility]. * Telephone Encounter - Laila Ramos [...] carafate. Short term to [facility] and senior living to Mail order. * Telephone Encounter - [...] calling: self Call patient at: on cell [phone] (home) [phone] (cell) Was an appointment scheduled: No Closing statement: Results or non-symptom based questions: Thank you for calling [facility], your call will be returned within the next business day. Jes Shin documented in this encounterMercy Health Willard Hospital12-05-2023 Miscellaneous Notes* Telephone Encounter - Les Coffman [...] short term prescription to be called into [facility]. Patient has been identified by name and birthdate. Duration of symptoms: N/A Person calling: self Call patient at: on cell [phone] (home) [phone] (cell) Was an appointment scheduled: No Closing statement: Results or non-symptom based questions: Thank you for calling [facility], your call will be returned within the next business day. Jes Shin documented in this encounterMercy Health [facility] Hospital08-29-2023 Miscellaneous Notes* Telephone Encounter - Fransisca Park [...] patient. Leeann Nolen Pss documented in this encounterMercy Health Willard Hospital08-15-2023 Miscellaneous Notes* Telephone Encounter - Lizett Lemus [...] time. Ana Gayle RN documented in this encounterMercy Health Willard Hospital08-14-2023 History of Present illness Narrative* Laila Ramos MD - 07/12/2023 1:18 PM EDT This note was created using [employer]Sur[employer]. Subjective Evelia Nails Jr. is a 82 [...] instructed every 4 hours as needed. glucosamine/msm/chondrt/C/hyal (FFOUPQKBFIM-QAFYQSVLMZC-DEV ORAL) Take by mouth. MV with Ghv-Ciixeifs-Smpzyc (CENTRUM SILVER) 0.4-300-250 mg-mcg-mcg tab Take 1 [...] tremor G25.0 9. Chronic ITP (idiopathic thrombocytopenia) ([facility]) D69.3 10. Crohn's disease of both small and large intestine without complication ([facility]) K50.80 11. Major depressive disorder, single episode, mild ([facility]) F32.0 12. Encounter for long-term [...] drive this to visit family member in [place]. Encouraged to stay hydrated and stop every 2 to 3 hours and walk. Be rested before drives. Discussed management of essential tremors. Consider increasing propranolol and taper down metoprolol. .Further evaluation and treatment as indicated. Follow up with specialists: neurology, GI, and cardiology as needed. I spent a total of 48 minutes on the date of the service which included qsnj-wk-phzs patient care, completing clinical documentation, performing a medically appropriate examination, counseling and educating the patient/family/caregiver, ordering medications, tests, or procedures, independently interpreting results (not separately reported), and communicating results to the patient/family/caregiver. Laila Ramos MD documented in this encounterMercy Health [facility] Hospital07-20-2023 Miscellaneous Notes* Telephone Encounter - Nicole Lora HENRIETTA - 06/17/2023 3:57 PM EDT [facility] and a year. [...] and advise. Ana Moura documented in this encounterMercy Health Will[facility] Hospital05-15-2023 Miscellaneous Notes* Telephone Encounter - Laila Ramos MD - 04/12/2023 12:57 PM EDT Okayed * Telephone Encounter - Chanelle Peguero LPN - 04/12/2023 10:16 AM EDT Yes pt is taking Flomax also. Please send 90 day supply on the Uroxatral to [facility]. Chanelle Peguero LPN * Telephone Encounter - [...] Thank you. Audrey Singer documented in this encounterMercy Health Willard Hospital02-24-2023 Instructions* Patient Instructions* Laila Ramos MD - 01/22/2023 9:12 AM EST Consider drinking warmer water (not ice cold) Double up the Prevacid. Mucinex can help loosen the mucus. documented in this encounterMercy Health Willard Hospital02-24-2023 History of Present illness Narrative* Laila Ramos MD - 01/22/2023 9:00 AM EST This note was created using [employer]. Subjective Evelia Nails Jr. is a 82 [...] 10 mg by mouth once daily. glucosamine/msm/chondrt/C/hyal (LKYRWUQUCYP-MKAYFPTDVNR-CXM ORAL) Take by mouth. MV with Nte-Tjooazvi-Yuehfk (CENTRUM SILVER) 0.4-300-250 mg-mcg-mcg tab Take 1 [...] Would recommend EGD at some point given senior living PPI. Laila Ramos MD documented in this encounterMercy Health Willard Hospital02-22-2023 Miscellaneous Notes* Telephone Encounter - Les Coffman [...] let us know. Thanks documented in this encounterMercy Health Willard Hospital02-13-2023 Miscellaneous Notes* Telephone Encounter - Jes Shin [...] notify patient. Jes Shin documented in this encounterMercy Health Willard Hospital02-02-2023 Miscellaneous Notes* Telephone Encounter - Glenys Garcia RN - 12/31/2022 3:51 PM EST Patient calling for refill of Metoprolol to [facility]. Advised refills available at pharmacy.He will contact pharmacy. Glenys Garcia RN documented in this encounterMercy Health Willard Hospital12-20-2022 Procedure note* SACHI Dang - 11/17/2022 11:25 [...] 2022 TIME: 11:25 AM documented in this encounterMercy Health Willard Hospital12-20-2022 History of Present illness Narrative* SACHI Dang - 11/17/2022 11:23 AM EST PULM FUNCTION SMARTBLOCK: Provider: Laila Ramos MD Assisting Tech: SACHI Dang Spirometry: 1 LV - Box: 1 Exhaled Nitric Oxide: 1 documented in this encounterMercy Health Willard Hospital12-05-2022 History of Present illness Narrative* Laila Ramos MD - 11/02/2022 10:20 AM EST This note was created using [employer]. Subjective Evelia Nails Jr. is a 81 [...] 5 mg by mouth once daily. glucosamine/msm/chondrt/C/hyal (MYRHWAEKKDA-PRBRHLVEIJK-ATR ORAL) Take by mouth. MV with Axi-Wkozqbay-Sxnvtb (CENTRUM SILVER) 0.4-300-250 mg-mcg-mcg tab Take 1 [...] INFLUENZA SEASONAL QUADRIVALENT HIGH DOSE AGE 65+ [employer] COVID-19 BIVALENT BOOSTER VACCINE, AGE 12+ YR [...] indicated. Laila Ramos MD documented in this encounterMercy Health Willard Hospital11-17-2022 Miscellaneous Notes* Telephone Encounter - Nicole Lora LPN - 10/15/2022 11:03 AM EST Rec'd fax from [facility] asking if pt to be on both propanolol and metoprolol. Pcp reviewed and sys YES. This has been faxed back to [facility] some sugar. documented in this encounterMercy Health Willard Hospital11-15-2022 Miscellaneous Notes* Telephone Encounter - Korina Barber [...] you. Torri Matute RN documented in this encounterMercy Health Willard Hospital11-14-2022 Miscellaneous Notes* Telephone Encounter - Laila Ramos [...] for it later today. documented in this encounterMercy Health Willard Hospital08-05-2022 Miscellaneous Notes* Telephone Encounter - Lizett Lemus LPN - 07/03/2022 2:01 PM EDT Amber from [facility] was notified that patient was oked for surgery. Note faxed to there office. * Telephone Encounter - Cesilia Alcantara LPN - 07/03/2022 1:15 PM EDT Amber from [facility] calls asking how pts pre op visit went this morning with Em ? I do not see either way in note. Please call [place] at above number to let her know. documented in this encounterMer[facility] History of Present illness Narrative* Em Romero, DEIDRE.STAVE CUTTING SUPERVISOR - 07/03/2022 9:20 AM EDT SUBJECTIVE: [...] Dr Sinclair Date: 07/06/2022 Location: [facility] History of paroxysmal atrial fibrillation, not taking oral anticoagulation. OK: no CVA: no Chest pain: no Shortness [...] 5 mg by mouth once daily. glucosamine/msm/chondrt/C/hyal ([id number]-DWNJSRUJIVC-GBI ORAL) Take by mouth. MV with Wek-Msjqnhce-Qhccng (CENTRUM SILVER) 0.4-300-250 mg-mcg-mcg tab Take 1 [...] testing needed at this time Em Romero APRN.STAVE CUTTING SUPERVISOR documented in this encounterMercy [facility]08-03-2022 Miscellaneous Notes* Telephone Encounter - Torri Matute RN - 07/01/2022 12:35 PM EDT Amber from [facility] called in and reports they did not receive fax. Re-faxing to [facility] # [phone]. * Telephone Encounter - Ana Gayle RN - 07/01/2022 10:49 AM EDT [facility] requesting patient recent medication list. Faxed as requested to [phone]. Ana Gayle RN documented in this encounterMercy Health [facility]08-02-2022 Miscellaneous Notes* Telephone Encounter - Lizett Lemus [...] paperwork not received call the office at [phone]. 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 CXR ordered, showed left basilar atelectasis. Today reports that he is feeling improved however continues with cough chest congestion and nasal drainage. Afebrile. Continues with antibiotic, cough medicine. Taking allergy medicine. Presents today for preoperative visit in internal medicine. Surgery: Cataract, left Surgeon: Dr Sinclair Date: 07/06/2022 Location: [facility] History of paroxysmal atrial fibrillation, not taking oral anticoagulation. OK: no CVA: no Chest pain: no Shortness [...] 5 mg by mouth once daily. glucosamine/msm/chondrt/C/hyal (MMSHPUGVSFL-DIFAPFJYCEW-PNI ORAL), Take by mouth. MV with Hgy-Etvdfjya-Aergeq (CENTRUM SILVER) 0.4-300-250 mg-mcg-mcg tab, Take 1 [...] - ICD9: 786.2, ICD10: R05.1 Em Romero APRN.STAVE CUTTING SUPERVISOR documented in this encounterMercy Health Willard Hospital07-25-2022 History of Present illness Narrative* Laila Ramos MD - 06/22/2022 1:08 PM EDT This note was created using [employer]. Subjective HISTORY Evelia Nails Jr. is a 81 year old gentleman here for pre-op evaluation as requested by Dr. Tran. Evelia Nails Jr. has surgery scheduled on 07/11/22 if cleared for Cataract surgery at [facility]. Cough the psat 4 weeks. Worst [...] 5 mg by mouth once daily. glucosamine/msm/chondrt/C/hyal (ONBPYXDOPOS-GPGDDAPIWSA-FEW ORAL) Take by mouth. MV with Qcd-Rifbqcbo-Wmmsed (CENTRUM SILVER) 0.4-300-250 mg-mcg-mcg tab Take 1 [...] FREE BLD 6. PAF (paroxysmal atrial fibrillation) ([facility]) I48.0 ECG COMPLETE 7. Essential hypertension I10 8. Moderate persistent asthma without complication J45.40 9. Chronic ITP (idiopathic thrombocytopenia) ([facility]) D69.3 10. Crohn's disease of both small and large intestine without complication ([facility]) K50.80 11. Intermittent palpitations R00.2 [...] LIQUID Laila Ramos MD documented in this encounterMercy [facility]06-02-2022 Miscellaneous Notes* Telephone Encounter - Laila Ramos [...] you. Eda Garrison RN documented in this encounterMercy Health Willard Hospital03-01-2022 History of Present illness Narrative* Laila Ramos MD - 01/27/2022 2:53 PM EST This note was created using [employer]. Subjective Evelia Nails Jr. is a 81 [...] 5 mg by mouth once daily. glucosamine/msm/chondrt/C/hyal (DQIJWBHUPWU-GVRAQFTAJQO-UHC ORAL) Take by mouth. MV with Hmg-Ictbezto-Lszphs (CENTRUM SILVER) 0.4-300-250 mg-mcg-mcg tab Take 1 [...] booster. Laila Ramos MD documented in this encounterMercy Health [facility]ard Hospital03-22-2011 History of Past illness Narrative* Problem Noted Date Resolved Date Pneumonia 02/17/2011 08/22/2014 Atrial fibrillation 01/12/2011 05/24/2011 UTI (lower urinary tract infection) 01/13/2010 08/22/2014 Paralysis agitans 07/16/2005 09/23/2011 documented as of this encounter (statuses as of 04/20/2022) [facility] Narrative* Problem Noted Date Resolved Date Pneumonia 02/17/2011 08/22/2014 Atrial fibrillation 01/12/2011 05/24/2011 UTI (lower urinary tract infection) 01/13/2010 08/22/2014 Paralysis agitans 07/16/2005 09/23/2011 documented as of this encounter (statuses as of 04/30/2022) [facility] Narrative* Problem Noted Date Resolved Date Pneumonia 02/17/2011 08/22/2014 Atrial fibrillation 01/12/2011 05/24/2011 UTI (lower urinary tract infection) 01/13/2010 08/22/2014 Paralysis agitans 07/16/2005 09/23/2011 documented as of this encounter (statuses as of 06/30/2022) [facility] Narrative* Problem Noted Date Resolved Date Pneumonia 02/17/2011 08/22/2014 Atrial fibrillation 01/12/2011 05/24/2011 UTI (lower urinary tract infection) 01/13/2010 08/22/2014 Paralysis agitans 07/16/2005 09/23/2011 documented as of this encounter (statuses as of 06/30/2022) [address]22-2011 History of Past illness Narrative* Problem Noted Date Resolved Date Pneumonia 02/17/2011 08/22/2014 Atrial fibrillation 01/12/2011 05/24/2011 UTI (lower urinary tract infection) 01/13/2010 08/22/2014 Paralysis agitans 07/16/2005 09/23/2011 documented as of this encounter (statuses as of 07/01/2022) [facility] Narrative* Problem Noted Date Resolved Date Pneumonia 02/17/2011 08/22/2014 Atrial fibrillation 01/12/2011 05/24/2011 UTI (lower urinary tract infection) 01/13/2010 08/22/2014 Paralysis agitans 07/16/2005 09/23/2011 documented as of this encounter (statuses as of 07/03/2022) [address]22-2011 History of Past illness Narrative* Problem Noted Date Resolved Date Pneumonia 02/17/2011 08/22/2014 Atrial fibrillation 01/12/2011 05/24/2011 UTI (lower urinary tract infection) 01/13/2010 08/22/2014 Paralysis agitans 07/16/2005 09/23/2011 documented as of this encounter (statuses as of 07/03/2022) [facility] Narrative* Problem Noted Date Resolved Date Pneumonia 02/17/2011 08/22/2014 Atrial fibrillation 01/12/2011 05/24/2011 UTI (lower urinary tract infection) 01/13/2010 08/22/2014 Paralysis agitans 07/16/2005 09/23/2011 documented as of this encounter (statuses as of 08/12/2022) [facility] Narrative* Problem Noted Date Resolved Date Pneumonia 02/17/2011 08/22/2014 Atrial fibrillation 01/12/2011 05/24/2011 UTI (lower urinary tract infection) 01/13/2010 08/22/2014 Paralysis agitans 07/16/2005 09/23/2011 documented as of this encounter (statuses as of 10/12/2022) [facility] Narrative* Problem Noted Date Resolved Date Pneumonia 02/17/2011 08/22/2014 Atrial fibrillation 01/12/2011 05/24/2011 UTI (lower urinary tract infection) 01/13/2010 08/22/2014 Paralysis agitans 07/16/2005 09/23/2011 documented as of this encounter (statuses as of 10/13/2022) [address]22-2011 History of Past illness Narrative* Problem Noted Date Resolved Date Pneumonia 02/17/2011 08/22/2014 Atrial fibrillation 01/12/2011 05/24/2011 UTI (lower urinary tract infection) 01/13/2010 08/22/2014 Paralysis agitans 07/16/2005 09/23/2011 documented as of this encounter (statuses as of 10/15/2022) [address]22-2011 History of Past illness Narrative* Problem Noted Date Resolved Date Pneumonia 02/17/2011 08/22/2014 Atrial fibrillation 01/12/2011 05/24/2011 UTI (lower urinary tract infection) 01/13/2010 08/22/2014 Paralysis agitans 07/16/2005 09/23/2011 documented as of this encounter (statuses as of 11/17/2022) [address]22-2011 History of Past illness Narrative* Problem Noted Date Resolved Date Pneumonia 02/17/2011 08/22/2014 Atrial fibrillation 01/12/2011 05/24/2011 UTI (lower urinary tract infection) 01/13/2010 08/22/2014 Paralysis agitans 07/16/2005 09/23/2011 documented as of this encounter (statuses as of 12/08/2022) [address]22-2011 History of Past illness Narrative* Problem Noted Date Resolved Date Pneumonia 02/17/2011 08/22/2014 Atrial fibrillation 01/12/2011 05/24/2011 UTI (lower urinary tract infection) 01/13/2010 08/22/2014 Paralysis agitans 07/16/2005 09/23/2011 documented as of this encounter (statuses as of 12/31/2022) [address]22-2011 History of Past illness Narrative* Problem Noted Date Resolved Date Pneumonia 02/17/2011 08/22/2014 Atrial fibrillation 01/12/2011 05/24/2011 UTI (lower urinary tract infection) 01/13/2010 08/22/2014 Paralysis agitans 07/16/2005 09/23/2011 documented as of this encounter (statuses as of 01/12/2023) [address]22-2011 History of Past illness Narrative* Problem Noted Date Resolved Date Pneumonia 02/17/2011 08/22/2014 Atrial fibrillation 01/12/2011 05/24/2011 UTI (lower urinary tract infection) 01/13/2010 08/22/2014 Paralysis agitans 07/16/2005 09/23/2011 documented as of this encounter (statuses as of 01/20/2023) [address]22-2011 History of Past illness Narrative* Problem Noted Date Resolved Date Pneumonia 02/17/2011 08/22/2014 Atrial fibrillation 01/12/2011 05/24/2011 UTI (lower urinary tract infection) 01/13/2010 08/22/2014 Paralysis agitans 07/16/2005 09/23/2011 documented as of this encounter (statuses as of 02/22/2023) [address]22-2011 History of Past illness Narrative* Problem Noted Date Resolved Date Pneumonia 02/17/2011 08/22/2014 Atrial fibrillation 01/12/2011 05/24/2011 UTI (lower urinary tract infection) 01/13/2010 08/22/2014 Paralysis agitans 07/16/2005 09/23/2011 documented as of this encounter (statuses as of 04/12/2023) [address]22-2011 History of Past illness Narrative* Problem Noted Date Diagnosed Date Resolved Date Pneumonia 02/17/2011 08/22/2014 Atrial fibrillation 01/12/2011 05/24/20 11 UTI (lower urinary tract infection) 01/13/2010 08/22/2014 Paralysis agitans 07/16/2005 09/23/2011 documented as of this encounter (statuses as of 06/18/2023) [address]22-2011 History of Past illness Narrative* Problem Noted Date Diagnosed Date Resolved Date Pneumonia 02/17/2011 08/22/2014 Atrial fibrillation 01/12/2011 05/24/20 11 UTI (lower urinary tract infection) 01/13/2010 08/22/2014 Paralysis agitans 07/16/2005 09/23/2011 documented as of this encounter (statuses as of 07/13/2023) [facility] Narrative* Problem Noted Date Diagnosed Date Resolved Date Pneumonia 02/17/2011 08/22/2014 Atrial fibrillation 01/12/2011 05/24/20 11 UTI (lower urinary tract infection) 01/13/2010 08/22/2014 Paralysis agitans 07/16/2005 09/23/2011 documented as of this encounter (statuses as of 07/14/2023) [address]22-2011 History of Past illness Narrative* Problem Noted Date Diagnosed Date Resolved Date Pneumonia 02/17/2011 08/22/2014 Atrial fibrillation 01/12/2011 05/24/20 11 UTI (lower urinary tract infection) 01/13/2010 08/22/2014 Paralysis agitans 07/16/2005 09/23/2011 documented as of this encounter (statuses as of 07/28/2023) [address]22-2011 History of Past illness Narrative* Problem Noted Date Diagnosed Date Resolved Date Pneumonia 02/17/2011 08/22/2014 Atrial fibrillation 01/12/2011 05/24/20 11 UTI (lower urinary tract infection) 01/13/2010 08/22/2014 Paralysis agitans 07/16/2005 09/23/2011 documented as of this encounter (statuses as of 11/02/2023) [place] [address]-22-2011 History of Past illness Narrative* Problem Noted Date Diagnosed Date Resolved Date Pneumonia 02/17/2011 08/22/2014 Atrial fibrillation 01/12/2011 05/24/20 11 UTI (lower urinary tract infection) 01/13/2010 08/22/2014 Paralysis agitans 07/16/2005 09/23/2011 documented as of this encounter (statuses as of 11/05/2023) [address]-2011 History of Past illness Narrative* Problem Noted Date Diagnosed Date Resolved Date Pneumonia 02/17/2011 08/22/2014 Atrial fibrillation 01/12/2011 05/24/20 11 UTI (lower urinary tract infection) 01/13/2010 08/22/2014 Paralysis agitans 07/16/2005 09/23/2011 documented as of this encounter (statuses as of 11/19/2023) [place] [address]-22-2011 History of Past illness Narrative* Problem Noted Date Diagnosed Date Resolved Date Pneumonia 02/17/2011 08/22/2014 Atrial fibrillation 01/12/2011 05/24/20 11 UTI (lower urinary tract infection) 01/13/2010 08/22/2014 Paralysis agitans 07/16/2005 09/23/2011 documented as of this encounter (statuses as of 01/11/2024) [facility]arrative* Problem Noted Date Diagnosed Date Resolved Date Pneumonia 02/17/2011 08/22/2014 Atrial fibrillation 01/12/2011 05/24/20 11 UTI (lower urinary tract infection) 01/13/2010 08/22/2014 Paralysis agitans 07/16/2005 09/23/2011 documented as of this encounter (statuses as of 02/17/2024) [facility] Narrative* Problem Noted Date Diagnosed Date Resolved Date Pneumonia 02/17/2011 08/22/2014 Atrial fibrillation 01/12/2011 05/24/20 11 UTI (lower urinary tract infection) 01/13/2010 08/22/2014 Paralysis agitans 07/16/2005 09/23/2011 documented as of this encounter (statuses as of 03/10/2024) [facility] note* Diagnosis Elevated fasting glucose- Primary Impaired fasting glucose Essential tremor Essential and other specified forms of tremor Essential hypertension Unspecified essential hypertension Vitamin D deficiency Unspecified vitamin D deficiency Mixed hyperlipidemia [facility] Diagnosis Preop exam for internal medicine- Primary Other specified pre-operative examination Encounter for immunization Need for other specified prophylactic vaccination against single bacterial disease Need for shingles vaccine Need for prophylactic vaccination and inoculation against other viral diseases Moderate persistent asthma without complication Unspecified asthma Acute cough documented in this encounter [facility] note* Diagnosis Preop exam for internal medicine- Primary Other specified pre-operative examination documented in this encounter [facility] noteNo assessment information availableWSt. Elizabeth Hospital Work Phone: Evaluation note* Diagnosis AB (asthmatic bronchitis), moderate persistent, with acute exacerbation- Primary Viral syndrome Unspecified viral infection, in conditions classified elsewhere and of unspecified site Subacute cough Cough HARRIS (dyspnea on exertion) Other dyspnea and respiratory abnormality Fatigue, unspecified type PAF (paroxysmal atrial fibrillation) ([facility]) Atrial fibrillation Essential hypertension Unspecified [...] Preoperative examination, unspecified documented [facility]* Diagnosis Benign prostatic hyperplasia with nocturia documented [facility] this [facility]* Diagnosis Chronic cough Cough Chronic bronchitis, unspecified chronic bronchitis type (HCC) Decreased exercise tolerance Other general symptoms documented [facility] this encounter [facility]* Diagnosis Chronic cough Cough Chronic bronchitis, unspecified chronic bronchitis type (HCC) Decreased exercise tolerance Other general symptoms documented [facility] this encounter [facility]* Diagnosis Encounter for immunization- Primary Need for other specified prophylactic vaccination against single bacterial disease Chronic cough Cough Chronic bronchitis, unspecified chronic bronchitis type (HCC) Decreased exercise tolerance Other general symptoms Vitamin D deficiency Unspecified vitamin D deficiency IFG (impaired fasting glucose) Impaired fasting glucose Mixed hyperlipidemia Encounter for long-term current use of medication documented in this encounter [facility]* Diagnosis Crohn's disease of both small and large intestine without complication (HCC) Regional enteritis of small intestine with large intestine Essential hypertension Unspecified essential hypertension PAF (paroxysmal atrial fibrillation) (HCC) Atrial fibrillation documented in this encounter [facility]* Diagnosis Esophageal dysphagia- Primary Dysphagia, pharyngoesophageal phase Chronic cough Cough Chronic bronchitis, unspecified chronic bronchitis type (HCC) Essential hypertension Unspecified essential hypertension documented [facility] this encounter [facility]* Diagnosis Essential hypertension Unspecified essential hypertension PAF (paroxysmal atrial fibrillation) (HCC) Atrial fibrillation documented [facility] this [facility]* Diagnosis Essential hypertension- Primary Unspecified essential [...] use of medication documented in this [facility]* Diagnosis Hearing loss of right ear, unspecified hearing loss type- Primary documented in this encounter [facility]* Diagnosis Benign prostatic hyperplasia with nocturia [facility] this [facility]* Diagnosis Crohn's disease of both small and large intestine without complication (HCC) Regional enteritis of small intestine with large intestine documented in this encounter [facility]* Diagnosis Crohn's disease of both small [...] Pain in limb [facility] this [facility]* Diagnosis Major depressive disorder, single episode, mild (HCC) Major depressive disorder, single episode, mild documented [facility] this encounter [facility]* Diagnosis Anterior dislocation of left shoulder, subsequent encounter- Primary Essential hypertension Unspecified essential hypertension PAF (paroxysmal atrial fibrillation) ([facility]) Atrial fibrillation documented [facility] this encounter [facility]* Diagnosis Essential hypertension- Primary Unspecified essential hypertension Vitamin D deficiency Unspecified vitamin D deficiency IFG (impaired fasting glucose) Impaired fasting glucose Hypomagnesemia Disorders of magnesium metabolism Mixed hyperlipidemia Benign prostatic hyperplasia with nocturia Encounter for long-term current use of medication documented [facility] this encounter [facility]* Diagnosis Preop examination Preoperative examination, unspecified Viral syndrome Unspecified viral infection, in conditions classified elsewhere and of unspecified site Subacute cough Cough HARRIS (dyspnea on exertion) Other dyspnea and respiratory abnormality documented [facility] this encounter [facility]* Diagnosis Cough documented in this encounter [facility]* Diagnosis Arthritis of left shoulder region- [...] vitamin D deficiency documented [facility] this [facility]* Diagnosis Essential tremor- Primary Essential and other specified forms of tremor documented [facility] this [facility]* Diagnosis Essential hypertension- Primary Unspecified essential [...] of urinary system documented in this [facility]* Diagnosis History of left shoulder replacement- Primary documented [facility] this [facility]* Diagnosis Medicare annual wellness visit, subsequent- [...] glucose Mixed hyperlipidemia [facility] this [facility]* Diagnosis Essential hypertension- Primary Unspecified essential [...] use of medication documented in this encounter [facility] course Narrative No data available for this section Justin Christoval Reason for referral (narrative)* Outpatient Procedure (Routine) - Pending Review Specialty Diagnoses / Procedures Referred By Chelsea castle Referred To Contact [facility] Diagnoses HARRIS (dyspnea on exertion) PAF (paroxysmal atrial fibrillation) (HCC) Intermittent palpitations Procedures ECG COMPLETE ECG ROUTINE ECG W/LEAST 12 LDS W/I&[place] [address] [place] [id number] [facility] [address] [address] Referral ID Status Reason Start Date Expiration Date Visits Requested Visits Authorized [id number] Pending Review Auto-Generat ed Referral 06/22/2022 06/22/2023 1 1 [facility] for referral (narrative)* Outpatient Procedure (Routine) - Closed Specialty Diagnoses / Procedures Referred By Chelsea castle Referred To Contact [facility] Diagnoses Chronic cough Chronic bronchitis, unspecified chronic bronchitis type (HCC) Decreased exercise tolerance Procedures NITRIC OXIDE, EXHALED NITRIC O[place] [address] [place] [id number] [facility] [address] [place] [address] Referral ID Status Reason Start Date Expiration Date V isits Requested Visits Authorized [id number] Closed Auto-Generate d Referral 11/02/2022 12/02/2023 1 1 * Outpatient Procedure (Routine) - Closed Specialty Diagnoses / Procedures Referred By Chelsea castle Referred To Contact [facility] Diagnoses Chronic cough Chronic bronchitis, unspecified chronic bronchitis type (HCC) Decreased exercise tolerance Procedures LUNG VOLUMES Laila Ramos MD [address] [place] [address] [address] Referral ID Status Reason Start Date Expiration Date V isits Requested Visits Authorized [id number] Closed Auto-Generate d Referral 11/02/2022 12/02/2023 1 1 * Outpatient Procedure (Routine) - Authorized Specialty Diagnoses / Procedures Referred By Chelsea castle Referred To Contact [facility] Diagnoses Chronic cough Chronic bronchitis, unspecified chronic bronchitis type (HCC) Decreased exercise tolerance Procedures SPIROMETRY BASELINE ONLY SPMTRY W/VC EXPIRATORY MIKA W/WO MXML VOL VNTJ Laila Ramos MD [address] [place] [address] [facility] [place] [address] [place] [address] Referral ID Status Reason Start Date Expiration Date Visits Requested Visits Authorized [id number] Authorized Auto-Generat ed Referral 11/02/2022 12/02/2023 1 1 * Outpatient Procedure (Routine) - Closed Specialty Diagnoses / Procedures Referred By Chelsea castle Referred [facility] Diagnoses Chronic cough Chronic bronchitis, unspecified chronic bronchitis type (HCC) Decreased exercise tolerance Procedures SPIROMETRY WITH DILATOR IF OBSTRUCTED BRNCDILAT RSPSE SPMTRY PRE&POST-BRNCDILAT ADMN Laila Ramos MD [address] [place] [address] [facility] [address] [place] [address] Referral ID Status Reason Start Date Expiration Date V isits Requested Visits Authorized [id number] Closed Auto-Generate d Referral 11/02/2022 12/02/2023 1 1 [facility] for referral (narrative)No reason for referral information availableWSt. [facility] Work Phone: Chief Complaint and Reason for [...] June 01, 2019 7 :49pm Power of Operations Director Yes June 01, 2019 7:49pm Documents on File Type Date Recorded Patient Referral Agent Expl anation Advance Directive(s) 03/10/2023 10:34 AM Documents on File Type Date Recorded Patient Referral Agent Expl anation Advance Directive(s) 03/10/2023 10:34 AM Advance Directive Response Recorded Date/ Time Advance Directives Yes September 9:14pm Reason for Referral Specialty Diagnoses / Procedures Referred By Contac t Referred To Contact Ent - Otolaryngology Diagnoses Hearing loss of right ear, unspecified hearing loss type Procedures CONSULT TO ENT OFFICE/OUTPATIENT [facility] 60-74 MINUTES Em Romero, INFECTION CONTROL MANAGER.STAVE CUTTING SUPERVISOR [address] [place] [address] Referral ID Status Reason Start Date Expiration Date Visits Requested Visits Authorized [id number] Authorized PCP Requested Referral 07/13/2023 07/12/2024 1 1 Specialty Diagnoses / Procedures Referred By Contac t Referred To Contact Neurology Diagnoses Tremor of both hands Procedures CONSULT TO NEUROLOGY OFFICE/OUTPATIENT [facility] 60 MINUTES RomeroEm choi, INFECTION CONTROL MANAGER.STAVE CUTTING SUPERVISOR [address] [place] [address] Referral ID Status Reason Start Date Expiration Date Visits Requested Visits Authorized [id number] Authorized PCP Requested Referral 02/17/2024 02/16/2025 1 1 Specialty Diagnoses / Procedures Referred By Contac t Referred To Contact [facility] Diagnoses History of left shoulder replacement Procedures CONSULT TO TARGET WORKER OCCUP[facility] THERAPY [facility] 60 MINS Em Romero, INFECTION CONTROL MANAGER.STAVE CUTTING SUPERVISOR [address] [place] [address] [facility] [address] [place] [address] Referral ID Status Reason Start Date Expiration Date Visits Requested Visits Authorized [id number] Authorized PCP Requested Referral Auto-Generate d Referral 4 11/10/2025 99 99 Summary Purpose Additional Source Comments Source Comments (unrecognize d section and content) In the event this informatio n is protected by the Federal Confidentiality of Alcohol and Drug Abuse Patient Records regulations: The Federal rules restrict any use of the information to criminally investigate or prosecute any alcohol or drug abuse patient.[facility] HospitalIn the event this information is protected by the Federal Confidentiality of Alcohol and Drug Abuse Patient Records regulations: The Federal rules restrict any use of the information to criminally investigate or prosecute any alcohol or drug abuse patient.[facility] HospitalIn the event this information is protected by the Federal Confidentiality of Alcohol and Drug Abuse Patient Records regulations: The Federal rules restrict any use of the information to criminally investigate or prosecute any alcohol or drug abuse patient.[facility] HospitalIn the event this information is protected by the Federal Confidentiality of Alcohol and Drug Abuse Patient Records regulations: The Federal rules restrict any use of the information to criminally investigate or prosecute any alcohol or drug abuse patient.[facility] HospitalIn the event this information is protected by the Federal Confidentiality of Alcohol and Drug Abuse Patient Records regulations: The Federal rules restrict any use of the information to criminally investigate or prosecute any alcohol or drug abuse patient.[facility] HospitalIn the event this information is protected by the Federal Confidentiality of Alcohol and Drug Abuse Patient Records regulations: The Federal rules restrict any use of the information to criminally investigate or prosecute any alcohol or drug abuse patient.[facility] HospitalIn the event this information is protected by the Federal Confidentiality of Alcohol and Drug Abuse Patient Records regulations: The Federal rules restrict any use of the information to criminally investigate or prosecute any alcohol or drug abuse patient.[facility] HospitalIn the event this information is protected by the Federal Confidentiality of Alcohol and Drug Abuse Patient Records regulations: The Federal rules restrict any use of the information to criminally investigate or prosecute any alcohol or drug abuse patient.[facility] HospitalIn the event this information is protected by the Federal Confidentiality of Alcohol and Drug Abuse Patient Records regulations: The Federal rules restrict any use of the information to criminally investigate or prosecute any alcohol or drug abuse patient.[facility] HospitalIn the event this information is protected by the Federal Confidentiality of Alcohol and Drug Abuse Patient Records regulations: The Federal rules restrict any use of the information to criminally investigate or prosecute any alcohol or drug abuse patient.[facility] HospitalIn the event this information is protected by the Federal Confidentiality of Alcohol and Drug Abuse Patient Records regulations: The Federal rules restrict any use of the information to criminally investigate or prosecute any alcohol or drug abuse patient.[facility] HospitalIn the event this information is protected by the Federal Confidentiality of Alcohol and Drug Abuse Patient Records regulations: The Federal rules restrict any use of the information to criminally investigate or prosecute any alcohol or drug abuse patient.[facility] HospitalIn the event this information is protected by the Federal Confidentiality of Alcohol and Drug Abuse Patient Records regulations: The Federal rules restrict any use of the information to criminally investigate or prosecute any alcohol or drug abuse patient.[facility] HospitalIn the event this information is protected by the Federal Confidentiality of Alcohol and Drug Abuse Patient Records regulations: The Federal rules restrict any use of the information to criminally investigate or prosecute any alcohol or drug abuse patient.[facility] HospitalIn the event this information is protected by the Federal Confidentiality of Alcohol and Drug Abuse Patient Records regulations: The Federal rules restrict any use of the information to criminally investigate or prosecute any alcohol or drug abuse patient.[facility] HospitalIn the event this information is protected by the Federal Confidentiality of Alcohol and Drug Abuse Patient Records regulations: The Federal rules restrict any use of the information to criminally investigate or prosecute any alcohol or drug abuse patient.[facility] HospitalIn the event this information is protected by the Federal Confidentiality of Alcohol and Drug Abuse Patient Records regulations: The Federal rules restrict any use of the information to criminally investigate or prosecute any alcohol or drug abuse patient.[facility] HospitalIn the event this information is protected by the Federal Confidentiality of Alcohol and Drug Abuse Patient Records regulations: The Federal rules restrict any use of the information to criminally investigate or prosecute any alcohol or drug abuse patient.[facility] HospitalIn the event this information is protected by the Federal Confidentiality of Alcohol and Drug Abuse Patient Records regulations: The Federal rules restrict any use of the information to criminally investigate or prosecute any alcohol or drug abuse patient.[facility] HospitalIn the event this information is protected by the Federal Confidentiality of Alcohol and Drug Abuse Patient Records regulations: The Federal rules restrict any use of the information to criminally investigate or prosecute any alcohol or drug abuse patient.[facility] HospitalIn the event this information is protected by the Federal Confidentiality of Alcohol and Drug Abuse Patient Records regulations: The Federal rules restrict any use of the information to criminally investigate or prosecute any alcohol or drug abuse patient.[facility] HospitalIn the event this information is protected by the Federal Confidentiality of Alcohol and Drug Abuse Patient Records regulations: The Federal rules restrict any use of the information to criminally investigate or prosecute any alcohol or drug abuse patient.[facility] HospitalIn the event this information is protected by the Federal Confidentiality of Alcohol and Drug Abuse Patient Records regulations: The Federal rules restrict any use of the information to criminally investigate or prosecute any alcohol or drug abuse patient.[facility] HospitalIn the event this information is protected by the Federal Confidentiality of Alcohol and Drug Abuse Patient Records regulations: The Federal rules restrict any use of the information to criminally investigate or prosecute any alcohol or drug abuse patient.[facility] HospitalIn the event this information is protected by the Federal Confidentiality of Alcohol and Drug Abuse Patient Records regulations: The Federal rules restrict any use of the information to criminally investigate or prosecute any alcohol or drug abuse patient.[facility] HospitalIn the event this information is protected by the Federal Confidentiality of Alcohol and Drug Abuse Patient Records regulations: The Federal rules restrict any use of the information to criminally investigate or prosecute any alcohol or drug abuse patient.[facility] HospitalIn the event this information is protected by the Federal Confidentiality of Alcohol and Drug Abuse Patient Records regulations: The Federal rules restrict any use of the information to criminally investigate or prosecute any alcohol or drug abuse patient.[facility] HospitalIn the event this information is protected by the Federal Confidentiality of Alcohol and Drug Abuse Patient Records regulations: The Federal rules restrict any use of the information to criminally investigate or prosecute any alcohol or drug abuse patient.[facility] HospitalIn the event this information is protected by the Federal Confidentiality of Alcohol and Drug Abuse Patient Records regulations: The Federal rules restrict any use of the information to criminally investigate or prosecute any alcohol or drug abuse patient.[facility] HospitalIn the event this information is protected by the Federal Confidentiality of Alcohol and Drug Abuse Patient Records regulations: The Federal rules restrict any use of the information to criminally investigate or prosecute any alcohol or drug abuse patient.[facility] HospitalIn the event this information is protected by [...] or prosecute any alcohol or drug abuse patient.[facility] HospitalIn the event this information is protected by the Federal Confidentiality of Alcohol and Drug Abuse Patient Records regulations: The Federal rules restrict any use of the information to criminally investigate or prosecute any alcohol or drug abuse patient.[facility] HospitalIn the event this information is protected by the Federal Confidentiality of Alcohol and Drug Abuse Patient Records regulations: The Federal rules restrict any use of the information to criminally investigate or prosecute any alcohol or drug abuse patient.[facility] HospitalIn the event this information is protected by the Federal Confidentiality of Alcohol and Drug Abuse Patient Records regulations: The Federal rules restrict any use of the information to criminally investigate or prosecute any alcohol or drug abuse patient.[facility] HospitalIn the event this information is protected by the Federal Confidentiality of Alcohol and Drug Abuse Patient Records regulations: The Federal rules restrict any use of the information to criminally investigate or prosecute any alcohol or drug abuse patient.[facility] HospitalIn the event this information is protected by the Federal Confidentiality of Alcohol and Drug Abuse Patient Records regulations: The Federal rules restrict any use of the information to criminally investigate or prosecute any alcohol or drug abuse patient.[facility] HospitalIn the event this information is protected by the Federal Confidentiality of Alcohol and Drug Abuse Patient Records regulations: The Federal rules restrict any use of the information to criminally investigate or prosecute any alcohol or drug abuse patient.[facility] HospitalIn the event this information is protected by the Federal Confidentiality of Alcohol and Drug Abuse Patient Records regulations: The Federal rules restrict any use of the information to criminally investigate or prosecute any alcohol or drug abuse patient.[facility] HospitalIn the event this information is protected by the Federal Confidentiality of Alcohol and Drug Abuse Patient Records regulations: The Federal rules restrict any use of the information to criminally investigate or prosecute any alcohol or drug abuse patient.[facility] HospitalIn the event this information is protected by the Federal Confidentiality of Alcohol and Drug Abuse Patient Records regulations: The Federal rules restrict any use of the information to criminally investigate or prosecute any alcohol or drug abuse patient.[facility] HospitalIn the event this information is protected by the Federal Confidentiality of Alcohol and Drug Abuse Patient Records regulations: The Federal rules restrict any use of the information to criminally investigate or prosecute any alcohol or drug abuse patient.[facility] HospitalIn the event this information is protected by the Federal Confidentiality of Alcohol and Drug Abuse Patient Records regulations: The Federal rules restrict any use of the information to criminally investigate or prosecute any alcohol or drug abuse patient.[facility] HospitalIn the event this information is protected by the Federal Confidentiality of Alcohol and Drug Abuse Patient Records regulations: The Federal rules restrict any use of the information to criminally investigate or prosecute any alcohol or drug abuse patient.[facility] HospitalIn the event this information is protected by the Federal Confidentiality of Alcohol and Drug Abuse Patient Records regulations: The Federal rules restrict any use of the information to criminally investigate or prosecute any alcohol or drug abuse patient.[facility] HospitalIn the event this information is protected by the Federal Confidentiality of Alcohol and Drug Abuse Patient Records regulations: The Federal rules restrict any use of the information to criminally investigate or prosecute any alcohol or drug abuse patient.[facility] HospitalIn the event this information is protected by the Federal Confidentiality of Alcohol and Drug Abuse Patient Records regulations: The Federal rules restrict any use of the information to criminally investigate or prosecute any alcohol or drug abuse patient.[facility] HospitalIn the event this information is protected by the Federal Confidentiality of Alcohol and Drug Abuse Patient Records regulations: The Federal rules restrict any use of the information to criminally investigate or prosecute any alcohol or drug abuse patient.[facility] HospitalIn the event this information is protected by the Federal Confidentiality of Alcohol and Drug Abuse Patient Records regulations: The Federal rules restrict any use of the information to criminally investigate or prosecute any alcohol or drug abuse patient.[facility] HospitalIn the event this information is protected by the Federal Confidentiality of Alcohol and Drug Abuse Patient Records regulations: The Federal rules restrict any use of the information to criminally investigate or prosecute any alcohol or drug abuse patient.[facility] HospitalIn the event this information is protected by the Federal Confidentiality of Alcohol and Drug Abuse Patient Records regulations: The Federal rules restrict any use of the information to criminally investigate or prosecute any alcohol or drug abuse patient.[facility] Reason for Visit (unrecogniz ed section and [...] By Contac t Referred To Contact RESPIRATORY COLP Diagnoses Chronic cough Chronic bronchitis, unspecified chronic bronchitis type (HCC) Decreased exercise tolerance Procedures SPIROMETRY WITH DILATOR IF OBSTRUCTED BRNCDILAT RSPSE SPMTRY PRE&POST-BRNCDILAT ADMN Laila Ramos MD [address] [place] [address] [place] [id number] Referral ID Status Reason Start Date Expiration Date V isits Requested Visits Authorized [id number] Closed Auto-Generate d Referral 11/02/2022 12/02/2023 1 1 Specialty Diagnoses / Procedures Referred By Contac t Referred To [facility] RESPIRATORY COLP Diagnoses Chronic cough Chronic bronchitis, unspecified chronic bronchitis type (HCC) Decreased exercise tolerance Procedures NITRIC OXIDE, EXHALED NITRIC OXIDE GAS DETERMINATION Laila Ramos MD [address] [place] [address] [address] Referral ID Status Reason Start Date Expiration Date V isits Requested Visits Authorized [id number] Closed Auto-Generate d Referral 11/02/2022 12/02/2023 1 1 Specialty Diagnoses / Procedures Referred By Contac t Referred To Contact RESP[facility]AT[facility] COLP Diagnoses Chronic cough Chronic bronchitis, unspecified chronic bronchitis type (HCC) Decreased exercise tolerance Procedures LUNG VOLUMES Laila Ramos MD [address] [place] [address] [facility] [place] [address] Referral ID Status Reason Start Date Expiration Date V isits Requested Visits Authorized [id number] Closed Auto-Generate d Referral 11/02/2022 12/02/2023 1 [...] was t aking at Rehab Reason Comments [facility] calling for verbal order PT Reason Comments Occupational Therapy Evaluation Reason Comments Orders Reason Comments [facility] Reason Comments Medicare Wellness Exam Reason Onset Date Comments Refill Request 12/15/2024 Reason Onset Date Comments Refill Request 02/13/2025 Reason Comments 4 month follow-up Care Teams (unrecognized sec tion and content) Director Occupational Relationship Specialty Start Date End Date Laila Ramos MD [address] [place], [place] [address] PCP - General Internal Medicine 01/07/17 [facility] 06/22/19 Director Occupational Relationship Specialty Start Date End Date Laila Ramos MD [address] [place], [place] [address] PCP - General Internal Medicine 01/07/17 [facility] 06/22/19 Director Occupational Relationship Specialty Start Date End Date Laila Ramos MD [address] [place] [address] PCP - General Internal Medicine 01/07/17 [facility] 06/22/19 Director Occupational Relationship Specialty Start Date End Date Laila Ramos MD [address] [place] [address] PCP - General Internal Medicine 01/07/17 [facility] 06/22/19 Director Occupational Relationship Specialty Start Date End Date Laila Ramos MD [address] [place] [address] PCP - General Internal Medicine 01/07/17 [facility] 06/22/19 Director Occupational Relationship Specialty Start Date End Date Laila Ramos MD [address] [place] [address] PCP - General Internal Medicine 01/07/17 [facility] 06/22/19 Director Occupational Relationship Specialty Start Date End Date Laila Ramos MD [address] [place] [address] PCP - General Internal Medicine 01/07/17 [facility] 06/22/19 Director Occupational Relationship Specialty Start Date End Date Laila Ramos MD [address] [place] [address] PCP - General Internal Medicine 01/07/17 [facility] 06/22/19 Director Occupational Relationship Specialty Start Date End Date Laila Ramos MD [address] [place] [address] PCP - General Internal Medicine 01/07/17 [facility] 06/22/19 Director Occupational Relationship Specialty Start Date End Date Laila Ramos MD [address] [place] [address] PCP - General Internal Medicine 01/07/17 [facility] 06/22/19 Director Occupational Relationship Specialty Start Date End Date Laila Ramos MD [address] [place] [address] PCP - General Internal Medicine 01/07/17 [facility] 06/22/19 Director Occupational Relationship Specialty Start Date End Date Laila Ramos MD [address] [place] [address] PCP - General Internal Medicine 01/07/17 [facility] 06/22/19 Director Occupational Relationship Specialty Start Date End Date Laila Ramos MD [address] [place] [address] PCP - General Internal Medicine 01/07/17 [facility] 06/22/19 Director Occupational Relationship Specialty Start Date End Date Laila Ramos MD [address] [place] [address] PCP - General Internal Medicine 01/07/17 [facility] 06/22/19 Director Occupational Relationship Specialty Start Date End Date Laila Ramos MD [address] [place] [address] PCP - General Internal Medicine 01/07/17 [facility] 06/22/19 Director Occupational Relationship Specialty Start Date End Date Laila Ramos MD [address] [place] [address] PCP - General Internal Medicine 01/07/17 [facility] 06/22/19 Director Occupational Relationship Specialty Start Date End Date Laila Ramos MD [address] [place] [address] PCP - General Internal Medicine 01/07/17 [facility] 06/22/19 Director Occupational Relationship Specialty Start Date End Date Laila Ramos MD [address] [place] [address] PCP - General Internal Medicine 01/07/17 [facility] 06/22/19 Director Occupational Relationship Specialty Start Date End Date Laila Ramos MD [address] [place] [address] PCP - General Internal Medicine 01/07/17 [facility] 06/22/19 Director Occupational Relationship Specialty Start Date End Date Laila Ramos MD [address] [place] [address] PCP - General Internal Medicine 01/07/17 [facility] 06/22/19 Director Occupational Relationship Specialty Start Date End Date Laila Ramos MD [address] [place] [address] PCP - General Internal Medicine 01/07/17 Lili Hawk MD [address] [place] [address] Specialty [facility] 11/17/23 [facility] 06/22/19 Director Occupational Relationship Specialty Start Date End Date Laila Ramos MD [address] [place] [address] PCP - General Internal Medicine 01/07/17 Lili Hawk MD [address] [address] Specialty [facility] Neurology 11/17/23 [facility] 06/22/19 Director Occupational Relationship Specialty Start Date End Date Laila Ramos MD [address] [place], [place] [address] PCP - General Internal Medicine 01/07/17 Lili Hawk MD [address] [address] Specialty [facility] Neurology 11/17/23 [facility] 06/22/19 Team Status: Active Member Role Status Dates Dr. Laila Ramos MD Family Provider Active Dr. Laila Ramos MD Primary Care Provider Active Team Status: Inactive Member Role Status Dates Dr. Laila Ramos MD Primary Care Provider Active Dr. Tyler Hairston MD Attending Provider, Referr ing Provider Active Director Occupational Relationship Specialty Start Date End Date Laila Ramos MD [address] [place] [address] PCP - General Internal Medicine 01/07/17 Lili Hawk MD [address] [id number] Specialty [facility] Neurology 11/17/23 [facility] 06/22/19 Director Occupational Relationship Specialty Start Date End Date Laila Ramos MD [address] [place] [address] PCP - General Internal Medicine 01/07/17 Lili Hawk MD [address] [id number] Specialty Square Cutter Neurology 11/17/23 [facility] 06/22/19 Director Occupational Relationship Specialty Start Date End Date Laila Ramos MD [address] [place], [place] [id number] PCP - General Internal Medicine 01/07/17 Lili Hawk MD [address] [address] Specialty Square [facility] Neurology 11/17/23 [facility] 06/22/19 Director Occupational Relationship Specialty Start Date End Date Laila Ramos MD [address] [place] [address] PCP - General Internal Medicine 01/07/17 Lili Hawk MD [address] [place] [address] Specialty Square Cutter Neurology 11/17/23 [facility] 06/22/19 Director Occupational Relationship Specialty Start Date End Date Laila Ramos MD [address] [place] [address] PCP - General Internal Medicine 01/07/17 Lili Hawk MD [address] [place] [address] Specialty Square Cutter Neurology 11/17/23 [facility] 06/22/19 Director Occupational Relationship Specialty Start Date End Date Laila Ramos MD [address] [place] [address] PCP - General Internal Medicine 01/07/17 [facility] 06/22/19 Director Occupational Relationship Specialty Start Date End Date Laila Ramos MD [address] [place] [address] PCP - General Internal Medicine 01/07/17 [facility] 06/22/19 Director Occupational Relationship Specialty Start Date End Date Laila Ramos MD [address] [place] [address] PCP - General Internal Medicine 01/07/17 Liil Hawk MD [address] [place] [address] Specialty Square Cutter Neurology 11/17/23 [facility] 06/22/19 Director Occupational Relationship Specialty Start Date End Date Laila Ramos MD [address] [place] [address] PCP - General Internal Medicine 01/07/17 Lili Hawk MD [address] [address] Specialty Square Cutter Neurology 11/17/23 [facility] 06/22/19 Director Occupational Relationship Specialty Start Date End Date Laila Rmaos MD [address] [place] [address] PCP - General Internal Medicine 01/07/17 Lili Hawk MD [address] [place] [address] Specialty Square [facility]utter Neurology 11/17/23 [facility] 06/22/19 Director Occupational Relationship Specialty Start Date End Date Laila Ramos MD [address] [place] [address] PCP - General Internal Medicine 01/07/17 Lili Hawk MD [address] [address] Specialty Square [facility] Neurology 11/17/23 [facility] 06/22/19 Director Occupational Relationship Specialty Start Date End Date Laila Ramos MD [address] [place], [place] [id number] PCP - General Internal Medicine 01/07/17 Lili Hawk MD [address] [address] Specialty Square C[facility] Neurology 11/17/23 Em Romero, INFECTION CONTROL MANAGER.STAVE CUTTING SUPERVISOR [address] [place] [address] Try Out Person Internal Medicine 11/06/24 Chloé Farrell INFECTION CONTROL MANAGER.LIVESTOCK SPECULATOR [address] [place] [address] Try Out Person Internal Medicine 11/06/24 [facility] 06/22/19 Director Occupational Relationship Specialty Start Date End Date Laila Ramos MD [address] [place] [address] PCP - General Internal Medicine 01/07/17 Lili Hawk MD [address] [address] Specialty Square [facility] Neurology 11/17/23 Em Romero, INFECTION CONTROL MANAGER.STAVE CUTTING SUPERVISOR [address] [place] [address] Try Out Person Internal Medicine 11/06/24 Chloé Farrell INFECTION CONTROL MANAGER.LIVESTOCK SPECULATOR [address] [place] [address] Try Out Person Internal Medicine 11/06/24 [facility] 7/25/19 Director Occupational Relationship Specialty Start Date End Date Laila Ramos MD [address] [place] [address] PCP - General Internal Medicine 01/07/17 Lili Hawk MD [address] [phone] Specialty Square [facility] Neurology 11/17/23 Em Romero, INFECTION CONTROL MANAGER.STAVE CUTTING SUPERVISOR [address] [place] [address] Try Out Person Internal Medicine 11/06/24 Chloé Farrell INFECTION CONTROL MANAGER.LIVESTOCK SPECULATOR [address] [place] [address] Try Out Person Internal Medicine 11/06/24 [facility] 06/22/19 Director Occupational Relationship Specialty Start Date End Date Laila Ramos MD [address] [place] [address] PCP - General Internal Medicine 01/07/17 Lili Hawk MD [address] [place] [address] Specialty [facility] Neurology 11/17/23 Em Romero, INFECTION CONTROL MANAGER.STAVE CUTTING SUPERVISOR [address] [place] [address] Try Out Person Internal Medicine 11/06/24 Chloé Farrell INFECTION CONTROL MANAGER.LIVESTOCK SPECULATOR [address] [place] [address] Try Out Person Internal Medicine 11/06/24 [facility] 06/22/19 Director Occupational Relationship Specialty Start Date End Date Laila Ramos MD [address] [place] [address] PCP - General Internal Medicine 01/07/17 Lili Hawk MD [address] [place] [address] Specialty Square [facility] Neurology 11/17/23 Em Romero, INFECTION CONTROL MANAGER.STAVE CUTTING SUPERVISOR [address] [place] [address] Try Out Person Internal Medicine 11/06/24 Chloé Farrell INFECTION CONTROL MANAGER.LIVESTOCK SPECULATOR [address] [place] [address] Try Out Person Internal Medicine 11/06/24 [facility] 06/22/19 Director Occupational Relationship Specialty Start Date End Date Laila Ramos MD [address] [place] [address] PCP - General Internal Medicine 01/07/17 Lili Hawk MD [address] [place] [address] Specialty [facility] Neurology 11/17/23 Em Romero, INFECTION CONTROL MANAGER.STAVE CUTTING SUPERVISOR [address] [place] [address] Try Out Person Internal Medicine 11/06/24 Chloé Farrell INFECTION CONTROL MANAGER.LIVESTOCK SPECULATOR [address] [place] [address] Try Out Person Internal Medicine 11/06/24 [facility] 06/22/19 Director Occupational Relationship Specialty Start Date End Date Laila Ramos MD [address] [place] [address] PCP - General Internal Medicine 01/07/17 Lili Hawk MD [address] [facility] [place] [address] [place] [address] Specialty Square Cutter Neurology 11/17/23 Em Romero, DEIDRE.STAVE CUTTING SUPERVISOR [address] [place] [address] Try Out Person Internal Medicine 11/06/24 Chloé Farrell INFECTION CONTROL MANAGER.LIVESTOCK SPECULATOR [address] [place] [address] Try Out Person Internal Medicine 02/20/25 [facility] 06/22/19 Team Status: Active Member Role/Relationship [...] section and content) DATE CREATED AUTHOR 12/20/2024 [facility] DATE CREATED AUTHOR AUTHOR'S ORGANIZ ATION 08/21/2025 [facility] DATE CREATED AUTHOR AUTHOR'S ORGANIZ ATION 10/06/2025 [facility] FOR RECORDS PERTAINING TO PATIENTS WHO ARE [...] BE BASED ON THE PRIMARY CLINICAL RECORDS. [employer] provides no warranty or guarantee of the accuracy or completeness of information in this document.
[2025-11-14 22:55] LABS: Red Blood Cells-Urine 50-100 SEEN /hpf (0-5)
--- NOTE | 2025-11-14 23:23 | EX.ED.DYSGE1 ---
HPI History of Present Illness Chief Complaint: Abd Pain Narrative Narrative: Patient was seen and examined after presenting to ED for abdominal pain and discomfort he just had a procedure done by Dr. Dale with urology stated that he was having difficulty urinating sure enough he had over 900 cc in his bladder on bladder scan. [facility] Medical History Wears glasses Alcohol use Arthritis Kidney stones Back pain Injury of head and neck Difficulty swallowing History of Crohn's disease History of diverticulitis Gastric reflux Former smoker Asthma Hoarseness Chronic cough History of pain when walking History of edema History of stress test History of echocardiogram Hypertension Cardiology follow-up encounter History of atrial fibrillation Abnormal cardiac enzyme level SVT (supraventricular tachycardia) Acute bronchitis Community acquired MRSA infection Dementia Depression Osteoarthritis Crohns disease BPH (benign prostatic hyperplasia) Benign essential hypertension Home Medications ?Medication ?Instructions ?Recorded ?Last Taken ?Type coenzyme Q10 100 mg capsule 100 mg PO DAILY supplement 08/30/15 11/08/25 History cyanocobalamin (vitamin B-12) 1,000 mcg PO DAILY supplement 08/30/15 11/08/25 History 1,000 mcg/mL oral drops folic acid 1 mg tablet 1 mg PO BIDCM supplement 08/30/15 11/08/25 History lansoprazole 30 mg capsule,delayed 30 mg PO BID gerd 08/30/15 11/08/25 History release ihrvezdx-wtt-otjcf acid 0.4 1 ea PO DAILY supplement 08/30/15 11/08/25 History mg-lycopene 300 mcg-lutein 250 mcg tablet sertraline 100 mg tablet 200 mg PO DAILY depression 08/30/15 11/08/25 History vit A 7,160 unit-C 113 mg-E 100 2 ea PO DAILY eye supplement 08/30/15 11/08/25 History aipr-lfaq-pazejz tablet,delayed rel. antiarthritic combination no.2 900 900 mg PO DAILY supplement 05/27/20 11/08/25 History mg tablet (glucosamine-chondroitin) magnesium oxide 400 mg (241.3 mg 400 mg PO .qd supplement 05/27/20 11/08/25 History magnesium) tablet sucralfate 1 gram tablet 1 g PO BID stomach 05/27/20 11/08/25 History lisinopril 5 mg tablet 5 mg PO DAILY bp #90 tabs 08/05/21 11/08/25 Rx buspirone 10 mg tablet 10 mg PO BID anxiety 08/25/21 11/08/25 History primidone 250 mg tablet 250 mg PO BID not sure why he 03/20/22 11/08/25 History takes it propranolol 40 mg tablet 40 mg PO TID bp 03/20/22 11/08/25 History donepezil 10 mg tablet 10 mg PO QHS memory 06/13/24 11/08/25 History metoprolol tartrate 50 mg tablet 50 mg PO BID bp 06/13/24 11/08/25 History meloxicam 7.5 mg tablet 7.5 mg PO BID pain #60 tabs 10/13/24 11/08/25 Rx acetaminophen 500 mg capsule 1,000 mg PO Q8 PRN fever or pain 10/26/25 Unknown History ciprofloxacin HCl 500 mg tablet 500 mg PO BID #10 tabs 11/09/25 Unknown Rx (Cipro) Allergy/AdvReac Type Severity Reaction Status Date / Time atorvastatin AdvReac Unknown Verified 11/14/25 20:59 Penicillins AdvReac Unknown Verified 11/14/25 20:59 Surgical History Status post reverse total arthroplasty of left shoulder Hx of sinus surgery Hx of umbilical hernia repair History of cholecystectomy History of tonsillectomy History of foot surgery History of total knee arthroplasty Social History Smoking Status: Former smoker how long ago did patient quit smokin's alcohol intake: never substance use type: does not use caffeine: No ROS ROS ED ROS Narrative Pertinent Positives: Urinary retention recent prostate surgery Pertinent Negatives: Fevers chills vomiting black or bloody stools The remainder of review of systems negative unless otherwise stated in the HPI above. Systems reviewed including constitutional, psychiatric, cardiovascular, respiratory, integument, HENT, gastrointestinal. EXAM Physical Exam Narrative Exam Narrative: Afebrile hemodynamically stable does not appear toxic or in distress abdomen is soft nontender nondistended as the patient already had a Chua in and was relieved moving all extremities appropriately. Const Vital Signs: 11/14/25 20:58 Temperature 97.6 F L Temperature Source Temporal Pulse Rate 60 Respiratory Rate 16 Blood Pressure 160/87 H Blood Pressure Mean 111 Pulse Ox 98 Oxygen Delivery Method Room Air MDM MDM MDM Narrative Medical decision making narrative: Nursing notes, triage notes, available previous documentation, and vital signs were reviewed. Any discrepancies noted were addressed. Differential Diagnoses: Urinary retention secondary to obstructive process from the prostate Interventions: Chua insertion Labs Reviewed: No leukocytosis leukopenia or anemia no electrolyte abnormality creatinine is 1.2 baseline is around 1.1-1.2 BUN was slightly elevated at 24 no transaminitis no lipase elevation urine showing 100 leukocyte esterase with 10-25 WBCs no bacteria without does have some blood Previous Documentation Reviewed: None available or applicable at this time. ED Course: Patient presenting with symptoms as stated above she does have urinary retention Chua catheter has been inserted I think he can follow-up with Dr. Dale return precautions follow-up recommendations provided patient stable for discharge. This note was made utilizing voice recognition software. All attempts were made to correct spelling or other errors prior to note completion. However, due to the fast-paced nature of emergency medicine, some errors may still be present. Lab Data Labs: Laboratory Results - last 24 hr 11/14/25 11/14/25 21:13 21:50 WBC 9.9 RBC 4.77 Hgb 13.2 Hct 42.1 MCV 88.3 MCH 27.7 MCHC 31.4 L RDW Std Deviation 51.1 H RDW Coeff of Max 15.9 H Plt Count 171 MPV 11.2 Immature Gran % (Auto) 0.500 Neut % (Auto) 66.2 Lymph % (Auto) 24.0 Mason % (Auto) 7.5 Eos % (Auto) 1.6 Baso % (Auto) 0.2 Absolute Neuts (auto) 6.5 Absolute Lymphs (auto) 2.37 Nucleated RBC % 0 Sodium 137 Potassium 4.7 Chloride 102 Carbon Dioxide 23.6 Anion Gap 11 BUN 24 H Creatinine 1.24 H Estim Creat Clear Calc 52.75 Est GFR (MDRD) Non-Af 57 L BUN/Creatinine Ratio 19.0 Glucose 91 Calcium 9.0 Total Bilirubin 0.43 AST 36 ALT 15 Alkaline Phosphatase 99 Total Protein 7.2 Albumin 4.2 Globulin 3.0 Albumin/Globulin Ratio 1.4 Lipase 47 Urine Color Yellow Urine Clarity Sl. Cloudy Urine pH 6.5 Ur Specific Leighton 1.010 Urine Protein 100 H Urine Glucose (UA) Normal Urine Ketones Negative Urine Occult Blood 250 H Urine Nitrite Negative Urine Bilirubin Negative Urine Urobilinogen Normal Ur Leukocyte Esterase 100 H Urine RBC 50-100 SEEN Urine WBC 10-25 SEEN Ur Squamous Epith Cells 0 SEEN Urine Bacteria 0 SEEN Urine Mucus 0 SEEN Discharge Plan Triage Chief Complaint: Abd Pain ED Provider: Mandi Sosa Dx/Rx/DC Orders Clinical Impression: Acute urinary retention, BPH (benign prostatic hyperplasia) Instructions: ED Urinary Retention, Male Prescriptions: No Action glucosamine-chondroitin 900 mg tablet 900 mg PO DAILY magnesium oxide 400 mg (241.3 mg magnesium) tablet 400 mg PO .qd sucralfate 1 gram tablet 1 g PO BID primidone 250 mg tablet 250 mg PO BID buspirone 10 mg tablet 10 mg PO BID propranolol 40 mg tablet 40 mg PO TID sertraline 100 MG tablet 200 mg PO DAILY lansoprazole 30 MG capsule 30 mg PO BID folic acid 1 MG tablet 1 mg PO BIDCM coenzyme Q10 100 MG capsule 100 mg PO DAILY vwvvueer-mwj-HT-lycopen-lutein 1 EACH tablet 1 ea PO DAILY cyanocobalamin (vitamin B-12) 1,000 MCG/ML drops 1,000 mcg PO DAILY vitamins A,C,D-kqro-bkmwym 1 EACH tablet,delayed release (DR/EC) 2 ea PO DAILY donepezil 10 mg tablet 10 mg PO QHS metoprolol tartrate 50 mg tablet 50 mg PO BID meloxicam 7.5 mg Tablet 7.5 mg PO BID Qty: 60 0RF acetaminophen 500 mg capsule 1,000 mg PO Q8 PRN (Reason: fever or pain) ciprofloxacin HCl [Cipro] 500 mg tablet 500 mg PO BID Qty: 10 0RF lisinopril 5 mg tablet 5 mg PO DAILY Qty: 90 3RF Primary Care Provider: Lena Jauregui Referrals: Tyler Dale MD [Med Staff - Active Staff, Urology] - As soon as possible Lena Jauregui MD [Primary Care Provider, Internal Medicine] Activity Restrictions/Additional Instructions: Keep the Chua catheter and follow-up with your urologist please return if you are having worsening symptoms Print Language: Hebrew Disposition Disposition: Home, Self Care
[2025-11-14 23:25] VITALS: BP 118/59; PULSE 59; RESP 17; O2SAT 96
[2025-11-14 23:26] VITALS: BP 118/59; PULSE 59; RESP 17; TEMP 36.4; O2SAT 96
--- NOTE | 2025-11-14 23:35 | ED.RN ---
This RN to bedside to discharge pt. Pt states well I still haven't pooped in 7 days, I am worried that I may have a bowel obstruction. this RN notified Dr. rocha. Doctor to see pt.
[2025-11-15 00:16] VITALS: BP 125/62; PULSE 64; RESP 17; O2SAT 97
== END 2025-11-15 00:32 | disposition home or self-care (01) ==
PROVIDERS: Emergency Provider Specialist/Technologist Athletic Trainer; PCP Internal Medicine; Visit Provider Specialist/Technologist Athletic Trainer
DX: R33.8 Other retention of urine (principal); N40.1 Benign prostatic hyperplasia with lower urinary tract symptoms; Z87.891 Personal history of nicotine dependence
CPT/HCPCS: 51702; 80053; 81001; 83690; 85025; 99283; A4216